=== PATIENT | male | born 1960 | race Caucasian/White ===

== ENCOUNTER 2017-06-08 13:14 | Outpatient (RCR) | payer MEDICARE, SELFPAY ==
[2017-06-08 13:48] LABS: International Normalized Ratio 2.5; Prothrombin Time (Protime)PT. 25.6 SECONDS (11.7-14.9)
== END 2017-06-08 14:00 | disposition home or self-care (01) ==
LOC: LAB 13:14
PROVIDERS: Family Provider Family Medicine; PCP Family Medicine; Visit Provider Internal Medicine Cardiovascular Disease
DX: I48.2 Chronic atrial fibrillation (principal)
CPT/HCPCS: 36415; 85610

== ENCOUNTER 2017-09-03 14:45 | Outpatient (RCR) | payer MEDICARE, SELFPAY ==
[2017-09-03 15:25] LABS: International Normalized Ratio 3.4; Prothrombin Time (Protime)PT. 34.9 SECONDS (11.7-14.9)
== END 2017-09-03 15:00 | disposition home or self-care (01) ==
LOC: LAB 14:45
PROVIDERS: Family Provider Family Medicine; PCP Family Medicine; Visit Provider Internal Medicine Cardiovascular Disease
DX: I48.91 Unspecified atrial fibrillation (principal); I51.3 Intracardiac thrombosis, not elsewhere classified; Z79.01 Long term (current) use of anticoagulants
CPT/HCPCS: 36415; 85610

== ENCOUNTER 2017-09-06 21:36 | Emergency (ER) | payer MEDICARE, SELFPAY ==
[2017-09-06 21:37] VITALS: BP 115/73; PULSE 80; RESP 18; TEMP 36.7; O2SAT 100; BMI 35.9
[2017-09-06] MEDS: Oxymetazoline 0.05% 1 SPRAY SPRAY.BTL NASAL (22:33)
[2017-09-06] MEDS: Lidocaine 4% 50 ML Bottle TOPICAL (22:33)
--- NOTE | 2017-09-06 23:04 | ED.VISSUMM ---
- ER Visit Summary Date of Service: 09/06/17 Chief Complaint: Epistaxis History of Present Illness: The patient is a 56 M who presents with epistaxis. It began about 11 hours ago and has been intermittent since that time. He does have a history of prior similar symptoms. He is on aspirin, Plavix, warfarin due to a significant coronary artery disease, peripheral vascular disease and congestive heart failure history. He denies any chest pain shortness of breath lightheadedness dizziness. Physical Examination: Afebrile vitals are stable Patient has some dried blood in the right nare and some dry irritated mucosa along the nasal septum no clear single source of bleeding Heart regular rate and rhythm Lungs are clear Abdomen soft Alert Test Results: INR is 3.3 Emergency Department Course and Treatment: Afrin was instilled in the right nare. A lidocaine soaked cotton ball was placed for some topical anesthesia. An anterior 5-1/2 cm Rhino Rocket type packing was placed. The patient had some reverse lacrimal flow with some blood at the right eye. The pressure in the balloon was decreased and the balloon was slightly pulled back and this resolved. Epistaxis appears controlled. The patient was referred to Dr. Duque for follow-up and discharged home. Treatment Plan: [] Disposition: Discharge Impression: Epistaxis This note was generated with [employer] dictation software. It may contain incorrect words, spelling, and punctuation that were not noted in review of the chart prior to signing ED Disposition - Plan for ED Patient: Chief Complaint: Nosebleed Referrals: Allen Motta MD [Primary Care Provider] -
--- NOTE | 2017-09-06 23:07 | ED.DEP ---
ED Disposition - Plan for ED Patient: Chief Complaint: Nosebleed Instructions: Nosebleed Referrals: Allen Motta MD [Primary Care Provider] - Brandon Blackwood MD [STAFF PHYSICIAN] -
[2017-09-06 23:11] VITALS: BP 120/84; PULSE 80; RESP 16; O2SAT 97
[2017-09-08 15:30] LABS: Prothrombin Time Fingerstick 37.9 SEC (11.9-14.4)
== END 2017-09-06 23:12 | disposition home or self-care (01) ==
LOC: ED 22:12
PROVIDERS: Emergency Provider Emergency Medicine; Family Provider Family Medicine; PCP Family Medicine
DX: R04.0 Epistaxis (principal); E78.00 Pure hypercholesterolemia, unspecified; I10 Essential (primary) hypertension; E11.9 Type 2 diabetes mellitus without complications; I25.10 Atherosclerotic heart disease of native coronary artery without angina pectoris; Z95.5 Presence of coronary angioplasty implant and graft; I73.9 Peripheral vascular disease, unspecified; Z79.01 Long term (current) use of anticoagulants; Z79.82 Long term (current) use of aspirin; Z95.810 Presence of automatic (implantable) cardiac defibrillator
CPT/HCPCS: 30901; 36416; 85610; 99282

== ENCOUNTER 2017-09-07 10:13 | Emergency (ER) | payer MEDICARE, SELFPAY ==
[2017-09-07 10:14] VITALS: BP 123/81; PULSE 80; RESP 18; TEMP 36.8; O2SAT 97; BMI 35.5
[2017-09-07 10:50] LABS: Bedside Glucose 400 mg/dL (70-110)
--- NOTE | 2017-09-07 10:50 | EKG12_ITS ---
Test Reason : Blood Pressure : / mmHG Vent. Rate : 080 BPM Atrial Rate : 089 BPM P-R Int : 000 ms QRS Dur : 176 ms QT Int : 490 ms P-R-T Axes : 000 251 071 degrees QTc Int : 565 ms Ventricular-paced rhythm Biventricular pacemaker detected Abnormal ECG Confirmed by INES BRAGA ([id number]), brands editor CHRISTIAN HUIZAR ([id number]) on 09/10/2017 2:44:49 PM Referred By: Keven Willingham Confirmed By:INES BRAGA
--- NOTE | 2017-09-07 10:51 | ED.VISSUMM ---
- ER Visit Summary Date of Service: 09/07/17 Chief Complaint: Nosebleed History of Present Illness: The patient is a 56 M presenting with nosebleed which started yesterday. Patient came to the ED and had a packing placed. He states he has had intermittent bleeding since leaving. He states he intermittently will spit out blood. No bleeding from the nose or packing. He states he has felt weak and tired today. He has been lightheaded with no syncope. He denies chest pain or shortness of breath. Physical Examination: Vitals are stable. Patient is afebrile. Alert no acute distress. HEENT exam nasal packing right nare, no blood in posterior pharynx Neck is supple. Lungs are clear and equal bilaterally. Heart is regular rate and rhythm. Abdomen is soft nontender nondistended. Extremities are unremarkable. Skin is warm and dry. No focal neurologic deficit. Remainder of exam is unremarkable. Emergency Department Course and Treatment: EKG is paced at a rate of 80. Chest x-ray shows no acute process. CBC normal except for platelets 138. Chemistry normal except for sodium 135, glucose 348, BUN 38, creatinine 1.47. INR is 2.4. Troponin is negative. Patient given IV fluids, insulin. Repeat BGT 303. Orthostatics are negative. Patient was observed in the ED for several hours. He had no significant bleeding on multiple re-evaluations. He had a small amount of blood in his posterior pharynx on one re-evaluation. On reevaluation this has resolved. Patient is feeling improved. He states his dizziness has resolved. Discussed with Dr. Shoemaker and he will follow-up in the office. Patient is advised return to ED for any worsening complaints. Disposition: Discharge home Impression: Epistaxis, resolved; hyperglycemia This note was generated with [employer] dictation software. It may contain incorrect words, spelling, and punctuation that were not noted in review of the chart prior to signing ED Disposition - Plan for ED Patient: Chief Complaint: Nosebleed Referrals: Allen Motta MD [Primary Care Provider] -
--- NOTE | 2017-09-07 10:53 | RAD_ITS ---
STUDY: X-RAY CHEST REASON FOR EXAM: Male, 56 years old. Shortness of breath and dyspnea. TECHNIQUE: Single AP portable view of the chest. COMPARISON: Comparison is made with prior study dated September 07, 2016. FINDINGS: EKG electrodes are seen. The lungs are clear and expanded. There is no demonstrated pleural abnormality. Normal size heart. A left-sided dual-chamber pacemaker is seen. Normal mediastinum and katrina. Normal visualized pulmonary arteries. There is atherosclerotic calcification of the aortic arch with tortuosity. Normal visualized thoracic spine. Normal visualized ribs, clavicles, and shoulders. There is no demonstrated abnormality of the visualized soft tissue structures of the upper abdomen. RAD/Chest 1 View (Portable) IMPRESSION: No acute abnormality is present. Electronically Signed: Mann Prater MD at 11:24 EDT Tel [phone], Service support ,
[2017-09-07 11:05] LABS: Absolute Lymphocyte Count 1.19 X10^3/ul (0.83-4.51); Absolute Neutrophil Count 7.5 X10^3/uL (2.0-7.7); Basophil# 0.01 X10^3/uL; Basophil% 0.1 % (0-1); Eosinophil# 0.07 X10^3/uL; Eosinophils% 0.8 % (0-5); Hematocrit 48.1 % (40-54); Hemoglobin 16.3 g/dl (13.0-16.5); Lymphocyte # 1.19 X10^3/ul (4.0); Lymphocyte % 12.9 % (19-41); Mean Corp Hgb Conc 33.9 g/gl (32-36); Mean Corpuscular Hgb 28.7 pg (27.0-32.0); Mean Corpuscular Volume 84.7 fL (80-94); Mean Platelet Vol. 10.5 fl (6.2-12.0); Monocyte# 0.47 X10^3/uL; Monocyte% 5.1 % (0-10); Neutrophil # 7.47 X10^3/uL (2.7-7.7); Neutrophil % 80.6 % (47-70); POSITIVE COUNT NO; POSITIVE DIFFERENTIAL NO; POSITIVE MORPHOLOGY NO; Platelet Count 138 K/mm3 (150-450); Red Blood Count 5.68 M/mm3 (4.6-6.2); White Blood Count 9.3 K/mm3 (4.4-11.0)
[2017-09-07 11:17] LABS: Anion Gap 10 (5-15); BUN 38 mg/dL (7-18); BUN/Creat Ratio 25.9 RATIO (10-20); Calcium,Total 8.9 mg/dL (8.5-10.1); Chloride 100 mmol/L (98-107); Creatinine, Serum 1.47 mg/dL (0.70-1.30); EST Glomerular Filtration Rate 53 mL/min (>60); Est Glom Filt Rate - Afr Amer 64 mL/min (>60); Glucose 348 mg/dL (74-106); Potassium 5.1 mmol/L (3.5-5.1); Sodium Level 135 mmol/L (136-145)
[2017-09-07 11:20] LABS: International Normalized Ratio 2.4; Prothrombin Time (Protime)PT. 26.2 SECONDS (11.7-14.9)
[2017-09-07 12:15] VITALS: BP 117/80; PULSE 70; RESP 14; O2SAT 97
[2017-09-07 12:23] VITALS: BP 116/75; BP 120/74; BP 121/78; PULSE 78; PULSE 80; PULSE 82
--- NOTE | 2017-09-07 12:36 | ED.RN ---
PATIENT HAD BM X'S 1, TOBY LEÓN NOTED, DR. ARANDA MADE AWARE.
[2017-09-07 13:16] LABS: Bedside Glucose 303 mg/dL (70-110)
[2017-09-07 14:41] VITALS: BP 126/78; PULSE 80; RESP 14; O2SAT 99
--- NOTE | 2017-09-07 14:52 | ED.DEP ---
ED Disposition - Plan for ED Patient: Chief Complaint: Nosebleed Instructions: Nosebleed Referrals: Allen Motta MD [Primary Care Provider] - Mark Shoemaker MD [STAFF PHYSICIAN] -
[2017-09-07 15:05] VITALS: RESP 14
== END 2017-09-07 15:06 | disposition home or self-care (01) ==
PROVIDERS: Emergency Provider Emergency Medicine; Family Provider Family Medicine; PCP Family Medicine
DX: R04.0 Epistaxis (principal); E11.65 Type 2 diabetes mellitus with hyperglycemia; I10 Essential (primary) hypertension; I25.10 Atherosclerotic heart disease of native coronary artery without angina pectoris; I25.2 Old myocardial infarction; Z86.73 Personal history of transient ischemic attack (TIA), and cerebral infarction without residual deficits; Z95.1 Presence of aortocoronary bypass graft; Z95.0 Presence of cardiac pacemaker; Z79.4 Long term (current) use of insulin
CPT/HCPCS: 71045; 80048; 82962; 84484; 85025; 85610; 93005; 99285; J7030; J7040

== ENCOUNTER 2017-12-10 11:49 | Outpatient (RCR) | payer MEDICARE, SELFPAY ==
[2017-12-10 12:55] LABS: International Normalized Ratio 2.7; Prothrombin Time (Protime)PT. 28.4 SECONDS (11.7-14.9)
== END 2017-12-10 13:00 | disposition home or self-care (01) ==
LOC: LAB 11:49
PROVIDERS: Family Provider Family Medicine; PCP Family Medicine; Visit Provider Internal Medicine Cardiovascular Disease
DX: I48.91 Unspecified atrial fibrillation (principal); I51.3 Intracardiac thrombosis, not elsewhere classified; Z79.01 Long term (current) use of anticoagulants
CPT/HCPCS: 36415; 85610

== ENCOUNTER 2018-05-12 12:40 | Emergency (ER) | payer MEDICARE, SELFPAY ==
[2018-05-12] VITALS (8 sets, daily range): BP systolic 91–101; BP diastolic 53–74; PULSE 64–82; RESP 15–22; TEMP 36.8–37.4; O2SAT 94–97; BMI 35.4
--- NOTE | 2018-05-12 13:06 | EKG12_ITS ---
Test Reason : SOB Blood Pressure : / mmHG Vent. Rate : 080 BPM Atrial Rate : 108 BPM P-R Int : 000 ms QRS Dur : 176 ms QT Int : 472 ms P-R-T Axes : 000 213 062 degrees QTc Int : 544 ms Ventricular-paced rhythm Biventricular pacemaker detected Abnormal ECG Confirmed by JESI SMITH, DANYEL ([id number]), editor at large CHRISTIAN HUIZAR ([id number]) on 05/14/2018 1:52:47 PM Referred By: KAMI Confirmed By:DANYEL DENNISON MD
--- NOTE | 2018-05-12 13:09 | ED.VISSUMM ---
- ER Visit Summary Date of Service: 05/12/18 Chief Complaint: Cough History of Present Illness: The patient is a 57 M with a cough that has been gradually getting worse over the past week and a half. He has occasional sputum. He has occasional chest pain after coughing. He gets short of breath with exertion and with coughing. He feels lightheaded like he might pass out. He does have a history of heart disease and atrial fibrillation. Also reports diabetes, hypertension, and hyperlipidemia. He has a history of defibrillator and cardiac stents. He takes aspirin, Plavix, and Coumadin among his other medications. He was seen at an outside clinic and had an x-ray that showed possible early pulmonary edema versus reactive airway disease versus pneumonitis. The patient also reported that he had a pulse ox of 80% at home, but it was 99% today at the clinic. Physical Examination: Blood pressure 91/59. Otherwise vitals unremarkable. Afebrile. Patient has a dry cough. Lungs are clear in all mancuso. Heart is regular. Abdomen soft and nontender. He has lower extremity edema with stasis changes. Neurovascularly intact. Alert and oriented. Speaking in full sentences. Test Results: EKG and labs pending. Emergency Department Course and Treatment: Patient treated with a DuoNeb while awaiting results. Patient feels better after his breathing treatment. CBC normal except his platelets were 139. Glucose 284, BUN 27, creatinine 1.53, stable roughly. INR 3.0. Troponin normal. BNP 190. Repeat temperature was 99.3. Heart rate 81, respiratory rate 16, blood pressure 98/73 and 96% on room air. Patient says he normally has a low blood pressure. His maximum blood pressure will be 107 systolic. He feels much better. He ambulated in the department. He did well and did not desaturate. He would like to go home. His outside chest x-ray showed possible early pulmonary edema versus reactive airway disease versus pneumonitis. The remainder of his workup and symptoms are all nonspecific. He is concerned he has an infection and would like to try antibiotics. I believe this is reasonable. I advised him that it can raise his INR, and he will take a half dose of his Coumadin and get his INR rechecked. Patient treated with a Z-lion. Follow-up with primary care. Treatment Plan: As above Disposition: Discharge Impression: 1. Acute bronchitis This note was generated with [employer] dictation software. It may contain incorrect words, spelling, and punctuation that were not noted in review of the chart prior to signing ED Disposition - Plan for ED Patient: Chief Complaint: Shortness of Breath Instructions: Acute Bronchitis Prescriptions: Azithromycin [Zithromax Z-Lion] 250 mg PO UD #1 box Referrals: Allen Motta MD [Primary Care Provider] -
[2018-05-12] MEDS: Ipratropium/Albuterol Sulfate 3 ML AMPUL.NEB INHALATION (13:17)
[2018-05-12 13:32] LABS: Absolute Lymphocyte Count 0.71 X10^3/ul (0.83-4.51); Absolute Neutrophil Count 4.7 X10^3/uL (2.0-7.7); Basophil# 0.01 X10^3/uL; Basophil% 0.2 % (0-1); Eosinophil# 0.09 X10^3/uL; Eosinophils% 1.5 % (0-5); Hematocrit 43.9 % (40-54); Hemoglobin 14.6 g/dl (13.0-16.5); Lymphocyte # 0.71 X10^3/ul (4.0); Lymphocyte % 11.5 % (19-41); Mean Corp Hgb Conc 33.3 g/gl (32-36); Mean Corpuscular Hgb 28.9 pg (27.0-32.0); Mean Corpuscular Volume 86.9 fL (80-94); Mean Platelet Vol. 10.1 fl (6.2-12.0); Monocyte# 0.61 X10^3/uL; Monocyte% 9.9 % (0-10); Neutrophil # 4.74 X10^3/uL (2.7-7.7); Neutrophil % 76.9 % (47-70); POSITIVE COUNT NO; POSITIVE DIFFERENTIAL NO; POSITIVE MORPHOLOGY NO; Platelet Count 139 K/mm3 (150-450); RBC Distribution Width CV 13.7 % (11.6-14.6); RBC Distribution Width SD 42.9 fl (35.1-43.9); Red Blood Count 5.05 M/mm3 (4.6-6.2); White Blood Count 6.2 K/mm3 (4.4-11.0)
[2018-05-12 13:46] LABS: Prothrombin Time (Protime)PT. 31.4 SECONDS (11.7-14.9)
[2018-05-12 13:49] LABS: Anion Gap 8 (5-15); BUN 27 mg/dL (7-18); BUN/Creat Ratio 17.6 RATIO (10-20); Calcium,Total 8.7 mg/dL (8.5-10.1); Chloride 99 mmol/L (98-107); Creatinine, Serum 1.53 mg/dL (0.70-1.30); EST Glomerular Filtration Rate 50 mL/min (>60); Est Glom Filt Rate - Afr Amer 61 mL/min (>60); Estimated Creatinine Clearance 45.68 ml/min; Glucose 284 mg/dL (74-106); Potassium 4.2 mmol/L (3.5-5.1); Sodium Level 135 mmol/L (136-145)
[2018-05-12 13:59] LABS: BNP,B-Type NATRIURETIC PEPTIDE 190.4 pg/mL (0-100)
--- NOTE | 2018-05-12 15:00 | ED.DEP ---
ED Disposition - Plan for ED Patient: Chief Complaint: Shortness of Breath Instructions: Acute Bronchitis Prescriptions: Azithromycin [Zithromax Z-Lion] 250 mg PO UD #1 box Referrals: Allen Motta MD [Primary Care Provider] -
== END 2018-05-12 15:14 | disposition home or self-care (01) ==
LOC: ED 13:53
PROVIDERS: Emergency Provider Emergency Medicine; Family Provider Family Medicine; PCP Family Medicine
DX: J20.9 Acute bronchitis, unspecified (principal); K21.9 Gastro-esophageal reflux disease without esophagitis; G47.33 Obstructive sleep apnea (adult) (pediatric); I25.10 Atherosclerotic heart disease of native coronary artery without angina pectoris; E11.9 Type 2 diabetes mellitus without complications; I10 Essential (primary) hypertension; I48.91 Unspecified atrial fibrillation; E78.00 Pure hypercholesterolemia, unspecified; Z86.73 Personal history of transient ischemic attack (TIA), and cerebral infarction without residual deficits; Z79.01 Long term (current) use of anticoagulants; R60.0 Localized edema; R06.02 Shortness of breath; Z95.5 Presence of coronary angioplasty implant and graft; Z95.810 Presence of automatic (implantable) cardiac defibrillator; Z79.02 Long term (current) use of antithrombotics/antiplatelets; Z79.82 Long term (current) use of aspirin
CPT/HCPCS: 80048; 83880; 84484; 85025; 85610; 93005; 94640; 99284; J7030; A4216

== ENCOUNTER 2018-05-16 18:26 | Inpatient (IN) | payer MEDICARE, SELFPAY ==
[2018-05-12 12:41] VITALS: BMI 35.4
[2018-05-16] VITALS (10 sets, daily range): BP systolic 99–140; BP diastolic 75–101; PULSE 80; RESP 12–32; TEMP 36.3–37.2; O2SAT 99–100; BMI 36.1
[2018-05-16 18:59] LABS: Absolute Lymphocyte Count 1.03 X10^3/ul (0.83-4.51); Absolute Neutrophil Count 5.2 X10^3/uL (2.0-7.7); Basophil# 0.02 X10^3/uL; Basophil% 0.3 % (0-1); Eosinophil# 0.21 X10^3/uL; Eosinophils% 2.9 % (0-5); Hematocrit 43.4 % (40-54); Hemoglobin 15.4 g/dl (13.0-16.5); Lymphocyte # 1.03 X10^3/ul (4.0); Lymphocyte % 14.4 % (19-41); Mean Corp Hgb Conc 35.5 g/gl (32-36); Mean Corpuscular Hgb 31.6 pg (27.0-32.0); Mean Corpuscular Volume 88.9 fL (80-94); Mean Platelet Vol. 10.1 fl (6.2-12.0); Monocyte# 0.68 X10^3/uL; Monocyte% 9.5 % (0-10); Neutrophil # 5.18 X10^3/uL (2.7-7.7); Neutrophil % 72.8 % (47-70); POSITIVE COUNT NO; POSITIVE DIFFERENTIAL NO; POSITIVE MORPHOLOGY NO; Platelet Count 177 K/mm3 (150-450); RBC Distribution Width CV 13.5 % (11.6-14.6); RBC Distribution Width SD 42.3 fl (35.1-43.9); Red Blood Count 4.88 M/mm3 (4.6-6.2); White Blood Count 7.1 K/mm3 (4.4-11.0)
[2018-05-16] MEDS: Ipratropium/Albuterol Sulfate 3 ML AMPUL.NEB INHALATION (18:59)
[2018-05-16] MEDS: Albuterol 2.5 MG/3 ML VIAL.NEB. INHALATION (18:59)
[2018-05-16 19:15] LABS: Anion Gap 8 (5-15); BUN 29 mg/dL (7-18); BUN/Creat Ratio 17.6 RATIO (10-20); Calcium,Total 8.8 mg/dL (8.5-10.1); Chloride 96 mmol/L (98-107); Creatinine, Serum 1.65 mg/dL (0.70-1.30); EST Glomerular Filtration Rate 46 mL/min (>60); Est Glom Filt Rate - Afr Amer 56 mL/min (>60); Estimated Creatinine Clearance 42.36 ml/min; Glucose 310 mg/dL (74-106); Potassium 4.2 mmol/L (3.5-5.1); Sodium Level 131 mmol/L (136-145)
--- NOTE | 2018-05-16 19:20 | RAD_ITS ---
STUDY: X-RAY CHEST REASON FOR EXAM: Male, 57 years old. Chest pain and shortness of breath TECHNIQUE: Single frontal view of the chest. COMPARISON: September 07, 2017 FINDINGS: 3-lead AICD right chest unchanged in position. Possible developing right lower lobe infiltrate. There is no demonstrated pleural abnormality. Normal size heart. Normal mediastinum and katrina. Normal visualized pulmonary arteries. Normal visualized aortic arch and descending thoracic aorta. Normal visualized thoracic spine. Normal visualized ribs, clavicles, and shoulders. There is no demonstrated abnormality of the visualized soft tissue structures of the upper abdomen. RAD/Chest 1 View (Portable) IMPRESSION: Possible developing right lower lobe infiltrate Electronically Signed: Juan C Chapin MD at 20:49 EST , Service support ,
[2018-05-16 19:26] LABS: BNP,B-Type NATRIURETIC PEPTIDE 136.4 pg/mL (0-100)
[2018-05-17] VITALS (17 sets, daily range): BP systolic 89–112; BP diastolic 51–79; PULSE 78–86; RESP 16–18; TEMP 36.1–36.9; O2SAT 94–98; BMI 34.3; BMI 34.4
--- NOTE | 2018-05-17 00:06 | ED.VISSUMM ---
- ER Visit Summary Date of Service: 05/17/18 Chief Complaint: Shortness of breath. History of Present Illness: The patient is a 57 M history of insulin-dependent diabetes, TIA, CAD and PA, hypertension and A. fib. Denies any history of COPD not on home O2. Patient recently was seen in the ER treated as outpatient for bronchitis with Z-Lion. Patient states he does not feel he is getting better he feels more short of breath. And he says his cough is not gotten any better. Productive of yellowish to brown phlegm. No hemoptysis. No chest pain. No fever. Physical Examination: Middle-aged male initially on BiPAP by squad. Blood pressure 140/101. Pulse ox is 100% BiPAP. Off the O2 is hypoxic. HEENT exam unremarkable moist his membranes. Neck nontender no lymphadenopathy. Lungs coarse breath sounds. Expiratory wheezing. No rales. No rhonchi. Heart rhythm no murmur. Abdomen soft nontender. Normal bowel sounds no peritoneal signs. Extremities his chronic edema in the lower extremities is equal symmetrical. Calves are nontender. Neurologically is awake alert with no focal motor deficits. Test Results: CBC normal white count 7. Hemoglobin 15. Electrolytes sodium 131. BUN and creatinine 21 and 1.65. Glucose of 310. Gap of 8. Troponin normal. BNP of 136. EKG is paced rhythm at 88. Chest x-ray chronic changes cannot rule out a right lower lobe infiltrate. Emergency Department Course and Treatment: Patient treated with aerosol treatments. Initially we took him off the BiPAP but squad had a mom. He became hypoxic. He was put on BiPAP again. After aerosol treatments he is doing better. And he is currently stable on just oxygen. With a sat in the mid 90s. Without oxygen no he becomes hypoxic. Treatment Plan: Patient be started on IV Levaquin for community-acquired right lower lobe pneumonia. Due to his hypoxia I think he needs admitted. I have already spoken to the hospitalist and she will admit him to medical floor. Patient is comfortable with that plan. Disposition: Admission Impression: Acute right lower lobe pneumonia Bronchospasm with wheezing Hypoxia Pacemaker History of insulin-dependent diabetes This note was generated with [employer] dictation software. It may contain incorrect words, spelling, and punctuation that were not noted in review of the chart prior to signing ED Disposition - Plan for ED Patient: Chief Complaint: Shortness of Breath Referrals: Allen Motta MD [Primary Care Provider] -
[2018-05-17 00:18] LABS: Prothrombin Time (Protime)PT. 38.4 SECONDS (11.7-14.9)
[2018-05-17] MEDS: MethylPREDNISolone 125 MG/2 ML Vial IV (00:19)
[2018-05-17] MEDS: levoFLOXacin IV 750 MG/150 ML BAG 100 MG IV (00:19)
--- NOTE | 2018-05-17 00:21 | HP.PCM_ITS ---
History of Present Illness Date of Admission: 05/17/18 Chief Complaint: shortness of breath, productive cough The patient is a 57 year old M with an extensive past medical history as listed below. He was admitted through the ED on 05/17/2018 with a complaint of worsening shortness of breath and a productive cough for the past 3 days. He was recently seen in the ED for similar symptoms and treated with a Z-Lion for bronchitis. However symptoms worsen he still had worsening shortness of breath with a cough productive of greenish sputum. Cough actually worsened and today he said he simply felt like he could not breathe anymore. He did not have any fever or chills and had pleuritic chest pain with coughing but no hemoptysis. He called the EMS and had to be put on BiPAP on account of hypoxia. CBC showed white cell count of 7 and BMP was significant for sodium of 131 as well as creatinine of 2.1. EKG showed paced rhythm with rate at 88 and chest x-ray showed chronic changes and possible right lower lobe infiltrate. In the ED, they try to wean him off the BiPAP but he became more hypoxic and had to be put on BiPAP again. He was eventually transitioned to oxygen with saturation in the mid 90s but could not tolerate being off of oxygen. He is been admitted to be managed for respiratory insufficiency due to community-acquired pneumonia. He was started on IV Levaquin. [] Past Medical History Past Medical History (Chronic Problems): Chronic Problems (Last Reviewed 02/04/18 @ 16:06 by Keven Willingham MD) Mural thrombus of cardiac apex (Chronic) [facility] 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 (Chronic) ICD (implantable cardioverter-defibrillator), biventricular, in situ (Chronic) Atherosclerosis of [place] coronary artery of [place] heart without angina pectoris (Chronic) PCI to LAD & diagonal in 2009; Diabetes mellitus (Chronic) Obesity (Chronic) Hypertension (Chronic) Benign prostatic hypertrophy (Chronic) COPD (chronic obstructive pulmonary disease) (Chronic) GERD (gastroesophageal reflux disease) (Chronic) [place] (obstructive sleep apnea) (Chronic) AICD (automatic cardioverter/defibrillator) present (Chronic) 12/2009 implant; PAD (peripheral artery disease) (Chronic) Pleural effusion, left (Chronic) S/P PTCA (percutaneous transluminal coronary angioplasty) (Chronic) HLD (hyperlipidemia) (Chronic) Ischemic cardiomyopathy (Chronic) Systolic CHF, chronic (Chronic) Atrial fibrillation (Chronic) AV Node RFA 07/11/2015 H/O atrioventricular chris ablation (Chronic ~07/11/15) Medical History: Medical History (Last Reviewed 02/04/18 @ 16:06 by Keven Willingham MD) Mural thrombus of cardiac apex (Chronic) I51.3 [facility] 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 (Chronic) Z79.01 ICD (implantable cardioverter-defibrillator), biventricular, in situ (Chronic) Z95.810 Atherosclerosis of [place] coronary artery of [place] heart without angina pectoris (Chronic) I25.10 PCI to LAD & diagonal in 2009; Diabetes mellitus (Chronic) E11.9 Obesity (Chronic) E66.9 Hypertension (Chronic) I10 Benign prostatic hypertrophy (Chronic) N40.0 COPD (chronic obstructive pulmonary disease) (Chronic) J44.9 GERD (gastroesophageal reflux disease) (Chronic) K21.9 [place] (obstructive sleep apnea) (Chronic) G47.33 PAD (peripheral artery disease) (Chronic) I73.9 Pleural effusion, left (Chronic) J90 HLD (hyperlipidemia) (Chronic) E78.5 Ischemic cardiomyopathy (Chronic) I25.5 Hypokalemia (Acute) E87.6 Hypotension (Acute) I95.9 Acute on chronic renal failure (Acute) N17.9, N18.9 Near syncope (Acute) Systolic CHF, chronic (Chronic) I50.22 Atrial fibrillation (Chronic) I48.91 AV Node RFA 07/11/2015 Light headedness (Acute) R42 Chest pain (Acute) R07.9 Atherosclerosis of [place] coronary artery of [place] heart without angina pectoris I25.10 03/25/2007 EVAN to prox LAD and PTCA to Diag 1; 07/19/2008 PTCA/EVAN to ostium of LAD; 07/31/2008 PTCA to ostial LAD and Diagonal 1; 05/2009 PTCA/EVAN to mid LAD and Diagonal 1 LV apical aneurysm with thrombus History of cardiac pacemaker Onset Date: ~07/11/15 Z95.0 Allergies tramadol Allergy (Verified 09/06/17 21:37) Hives Penicillins Adverse Reaction (Verified 09/06/17 21:37) Nausea Home Medications: Ambulatory Orders Medication Instructions Recorded Insulin Glargine,Hum.rec.anlog 70 unit SQ QHS 08/16/16 [Nilsa Dang] gabapentin 300 mg capsule 300 mg PO TID cap 06/05/17 insulin aspart U- 100 100 unit/mL 16 unit SC TIDCM ml 06/08/17 subcutaneous pen furosemide 80 mg tablet 80 mg PO BID #60 tab 08/11/17 potassium chloride ER 20 mEq 20 meq PO DAILY #30 tab 09/02/17 tablet,extended release(part/cryst) Atorvastatin Calcium [Lipitor] 40 mg PO QHS 09/07/17 Carvedilol [Coreg] 3.125 mg PO BID 09/07/17 Aspirin [Aspirin EC] 81 mg PO DAILY 05/12/18 Lisinopril [Zestril] 2.5 mg PO DAILY 05/12/18 Spironolactone 25 mg PO DAILY 05/12/18 Warfarin Sodium 2.5 mg PO SUSA 05/12/18 clopidogrel 75 mg tablet 75 mg PO DAILY #30 tab 05/13/18 famotidine 40 mg tablet 40 mg PO DAILY #30 tab 05/13/18 warfarin 5 mg tablet 5 mg PO MOTUWETHFR #30 tab 05/13/18 Surgical History: Surgical History (Last Reviewed 02/04/18 @ 16:06 by Keven Willingham MD) AICD (automatic cardioverter/defibrillator) present (Chronic) Z95.810 12/2009 implant; S/P PTCA (percutaneous transluminal coronary angioplasty) (Chronic) Z98.61 H/O atrioventricular chris ablation (Chronic) Onset Date: ~07/11/15 Z98.890 History of cholecystectomy Z98.890, Z90.49 S/P aorto-bifemoral bypass surgery Onset Date: ~2003 Z95.828 [facility] Surgical History: angioplasty, cholecystectomy, pacemaker implantation, - Psychiatric History: No pertinent psych hx Lives: Alone Smoking Status: Current every day smoker Alcohol: None Drugs: None - *Family History Paternal Family History: Family History (Last Reviewed 02/04/18 @ 16:06 by Keven Willingham MD) Father Hypertension CAD (coronary artery disease) Sister Cancer History Items: Heart Disease - CAD; at approximately 45 years of age Maternal Family History: Family History (Last Reviewed 02/04/18 @ 16:06 by Keven Willingham MD) Father Hypertension CAD (coronary artery disease) Sister Cancer History Items: No pertinent history Review of Systems Constitutional: Reports: Chills, Fever, Malaise, Weakness, Fatigue. Denies: Ano rexia Eyes: Denies: Blurred vision HEENT: Denies: Head Aches, Sinus Congestion, Sinus Drainage Cardiovascular: Denies: Chest Pain, Chest Pressure, Chest Tightness, Edema, Heaviness, Light Headedness, Orthopnea, Palpitations Respiratory: Reports: Cough, Pleuritic Pain, Shortness of Breath, Shortness of breath at rest, Shortness of breath upon exertion, Sputum production, Wheezing Gastrointestinal: Denies: Abdominal Pain, Nausea, Vomiting Genitourinary: Denies: Dysuria Musculoskeletal: Denies: Joint Pain, Joint Tenderness Skin: Denies: Rash, Wounds Neurological: Denies: Numbness, Tingling, Focal weakness Psychiatric: Denies: Anxiety, Depression, Homicidal Ideations, Suicidal Ideations Hematologic/ Lymphatic: Denies: Easy Bruising, Easy Bleeding VTE Information - Inpt Only VTE Present on Admission: No VTE Pharm Prophylaxis ordered?: Yes - Physical Exam General: Alert, Oriented x3, Cooperative, - - in moderate respiratory distress HEENT: Atraumatic, PERRLA, EOMI, Normocephalic Oral: Dry Mucosa Neck: Supple, No JVD, Negative Carotid Bruits Lungs: - - lungs sound very tight, with wheezing and crackles. Breath sounds diminished in all lung mancuso posteriorly Cardiovascular: Regular rate, Regular Rhythm, Normal S1, Normal S2, No murmurs, - - pacemaker in place Abdomen: Bowel Sounds Present, Soft, Non Tender, Non-Distended, No Hepato- splenomegaly Extremities: No clubbing, No cyanosis, No edema, Capillary Refill Less than 3 Seconds Skin: No rashes, No breakdown Musculoskeletal: No Tenderness to Palpation of Joints or Extremities Lymphatic: No Cervical, Supraclavicular, or Inguinal Adenopathy Neurological: Cranial nerves II-XII grossly intact, Neuro grossly intact, Motor Exam 5/5 strength throughout Psych/Mental Status: Normal Affect, Appropriate, Alert and oriented to time, place, person, mood and affect Vital Signs Temp Pulse Resp BP Pulse Ox 98.9 F 80 17 116/82 H 100 05/16/18 23:00 05/16/18 23:00 05/16/18 23:00 05/16/18 23:00 05/16/18 23:00 Oxygen Flow Rate (L/min) 3 Oxygen Delivery Method Nasal Cannula Weight: 210 lb 8.663 oz Body Mass Index (BMI) 36.1 Finger Stick Blood Glucose 303 Laboratory Tests Past 24 Hrs 05/16/18 05/16/18 05/16/18 18:45 18:45 18:45 WBC 7.1 RBC 4.88 Hgb 15.4 Hct 43.4 MCV 88.9 MCH 31.6 MCHC 35.5 RDW 13.5 RDW Differential 42.3 Plt Count 177 MPV 10.1 Immature Gran % (Auto) 0.100 Neut % (Auto) 72.8 H Lymph % (Auto) 14.4 L [place] % (Auto) 9.5 Eos % (Auto) 2.9 Baso % (Auto) 0.3 Absolute Neuts (auto) 5.2 Absolute Lymphs (auto) 1.03 Total Counted Not Reportable PT INR Sodium 131 L Potassium 4.2 Chloride 96 L Carbon Dioxide 27.0 Anion Gap 8 BUN 29 H Creatinine 1.65 H Estim Creat Clear Calc 42.36 Est GFR (MDRD) Af Amer 56 L Est GFR (MDRD) Non-Af 46 L BUN/Creatinine Ratio 17.6 Glucose 310 H Calcium 8.8 Troponin I < 0.015 B-Natriuretic Peptide 136.4 H 05/16/18 18:45 WBC RBC Hgb Hct MCV MCH MCHC RDW RDW Differential Plt Count MPV Immature Gran % (Auto) Neut % (Auto) Lymph % (Auto) [place] % (Auto) Eos % (Auto) Baso % (Auto) Absolute Neuts (auto) Absolute Lymphs (auto) Total Counted PT Pending INR Pending Sodium Potassium Chloride Carbon Dioxide Anion Gap BUN Creatinine Estim Creat Clear Calc Est GFR (MDRD) Af Amer Est GFR (MDRD) Non-Af BUN/Creatinine Ratio Glucose Calcium Troponin I B-Natriuretic Peptide Diagnostic Data Chest X-Ray 05/16/18 19:20 IMPRESSION: Possible developing right lower lobe infiltrate Electronically Signed: Juan C Chapin MD at 20:49 EST , Service support , Assessment/Plan All Active Problems (Last Reviewed 02/04/18 @ 16:06 by Keven Willingham MD) Hypokalemia (Acute) Hypotension (Acute) Acute on chronic renal failure (Acute) Near syncope (Acute) Light headedness (Acute) Chest pain (Acute) Pneumonia (Resolved) 57 y/o admitted with a complaint of worsening SOB and productive after failing outpatient therapy with azithromycin for bronchitis 1. Acute respiratory insufficiency due to bronchitis vs community acquired pneumonia * cough productive of yellowish-greenish sputum * lungs sound very tight, with wheezing and crackles. * CXR showed possible developing right lower lobe infiltrate * on 4L of oxygen and maintaining saturation ~ 98% * admit to PCU with telemetry * IV solumedrol 40mg q8 * IV levaquin 750mg daily * breathing treatments with solumedrol * 2. Bronchitis and possible community acquired pneumonia * management as under 1. * 3. Hyponatremia: * Na is 131. likely due to a hypotonic, hypovolemic hyponatremia. * patient appears clinically dry * hydrate with IVF and monitor * 4. CKD 3: Cr is 1.65. baseline Cr is ~ 1.5 from earlier this year. Will monitor 5. Hypertension: on Coreg and lisinopril. 6. CAD: on aspirin, carvedilol, statin 7. Arrhythmia s/p pacemaker: stable 8. diabetes mellitus: on lantus 70Iu qhs and lispro 16Iu tidwm. ISS. Accuchecks ACHS 9. Afib: on carvedilol. Also on on coumadin. INR is 3.9. will hold coumadin until INR is in therapeutic range 10. Supratherapeutic INR: Inr is 3.9. Hold coumadin and monitor DVT prophylaxis: on coumadin. GI prophylaxis: famotidine * Code Visit OBSV E&M: [id number] Initial observation care L3
[2018-05-17 00:28] LABS: International Normalized Ratio 3.9
[2018-05-17] MEDS: Furosemide 80 MG Tablet PO ×2 (01:57→22:12)
[2018-05-17] MEDS: Gabapentin 300 MG Capsule PO ×4 (01:57→22:15)
[2018-05-17] MEDS: 0.9% Normal Saline 1,000 ML 75 ML IV (01:59)
[2018-05-17 02:11] LABS: Bedside Glucose 216 mg/dL (70-110)
[2018-05-17] MEDS: guaiFENesin 10 ML UDC (200MG/10ML) 15 ML PO ×2 (02:48→16:12)
[2018-05-17 06:36] LABS: Bedside Glucose 291 mg/dL (70-110)
[2018-05-17 06:44] LABS: Anion Gap 10 (5-15); BUN 28 mg/dL (7-18); Calcium,Total 8.6 mg/dL (8.5-10.1); Chloride 97 mmol/L (98-107); Creatinine, Serum 1.47 mg/dL (0.70-1.30); EST Glomerular Filtration Rate 53 mL/min (>60); Est Glom Filt Rate - Afr Amer 64 mL/min (>60); Estimated Creatinine Clearance 47.54 ml/min; Glucose 257 mg/dL (74-106); Potassium 4.5 mmol/L (3.5-5.1); Sodium Level 131 mmol/L (136-145)
[2018-05-17 06:48] LABS: Absolute Lymphocyte Count 0.42 X10^3/ul (0.83-4.51); Absolute Neutrophil Count 6.4 X10^3/uL (2.0-7.7); Basophil# 0.02 X10^3/uL; Basophil% 0.3 % (0-1); Eosinophil# 0.03 X10^3/uL; Eosinophils% 0.4 % (0-5); Hematocrit 43.4 % (40-54); Hemoglobin 15.8 g/dl (13.0-16.5); Lymphocyte # 0.42 X10^3/ul (4.0); Lymphocyte % 6.1 % (19-41); Mean Corp Hgb Conc 36.4 g/gl (32-36); Mean Corpuscular Hgb 32.2 pg (27.0-32.0); Mean Corpuscular Volume 88.6 fL (80-94); Mean Platelet Vol. 10.5 fl (6.2-12.0); Monocyte# 0.06 X10^3/uL; Monocyte% 0.9 % (0-10); Neutrophil # 6.41 X10^3/uL (2.7-7.7); Neutrophil % 92.3 % (47-70); Platelet Count 181 K/mm3 (150-450); RBC Distribution Width CV 13.7 % (11.6-14.6); RBC Distribution Width SD 41.1 fl (35.1-43.9); White Blood Count 6.9 K/mm3 (4.4-11.0)
[2018-05-17 06:52] LABS: Differential Indicated SCAN CRITERIA MET; POSITIVE COUNT NO; POSITIVE DIFFERENTIAL YES; POSITIVE MORPHOLOGY NO
[2018-05-17] MEDS: Ipratropium/Albuterol Sulfate 3 ML AMPUL.NEB INHALATION ×3 (07:16→19:58)
[2018-05-17 07:33] LABS: Prothrombin Time (Protime)PT. 41.4 SECONDS (11.7-14.9)
[2018-05-17 07:36] LABS: International Normalized Ratio 4.3
[2018-05-17 07:48] LABS: Albumin, Serum 3.5 g/dL (3.2-5.0); BUN 26 mg/dL (7-18); BUN/Creat Ratio 18.1 RATIO (10-20); Calcium,Total 8.7 mg/dL (8.5-10.1); Chloride 97 mmol/L (98-107); Creatinine, Serum 1.44 mg/dL (0.70-1.30); EST Glomerular Filtration Rate 54 mL/min (>60); Est Glom Filt Rate - Afr Amer 65 mL/min (>60); Estimated Creatinine Clearance 48.53 ml/min; Glucose 265 mg/dL (74-106); Phosphorus 3.2 mg/dL (2.5-4.9); Potassium 4.4 mmol/L (3.5-5.1); Sodium Level 135 mmol/L (136-145)
[2018-05-17] MEDS: Spironolactone 25 MG Tablet PO (08:18)
[2018-05-17] MEDS: Aspirin E.C. 81 MG Tablet PO (08:18)
[2018-05-17] MEDS: Carvedilol 3.125 MG TABLET PO ×2 (08:18→22:15)
[2018-05-17] MEDS: Clopidogrel Bisulfate 75 MG Tablet PO (08:19)
[2018-05-17] MEDS: Lisinopril 2.5 MG Tablet PO (08:19)
[2018-05-17] MEDS: Famotidine 20 MG Tablet 40 MG PO (08:19)
[2018-05-17] MEDS: Insulin Lispro 100 UNIT/ML INSULN.PEN 16 UNIT SC ×3 (08:23→16:15)
[2018-05-17 11:36] LABS: Bedside Glucose 334 mg/dL (70-110)
[2018-05-17 16:35] LABS: Bedside Glucose 413 mg/dL (70-110)
[2018-05-17] MEDS: Atorvastatin Calcium 40 MG Tablet PO (22:16)
[2018-05-17 22:36] LABS: Bedside Glucose 412 mg/dL (70-110)
[2018-05-18] VITALS (15 sets, daily range): BP systolic 90–105; BP diastolic 61–70; PULSE 62–82; RESP 16–20; TEMP 36.2–37.1; O2SAT 92–97
[2018-05-18] MEDS: Gabapentin 300 MG Capsule PO ×3 (06:58→21:12)
[2018-05-18 07:06] LABS: Bedside Glucose 444 mg/dL (70-110)
[2018-05-18] MEDS: Ipratropium/Albuterol Sulfate 3 ML AMPUL.NEB INHALATION ×3 (07:11→19:26)
[2018-05-18 07:40] LABS: Prothrombin Time (Protime)PT. 44.7 SECONDS (11.7-14.9)
[2018-05-18 07:44] LABS: Anion Gap 9 (5-15); BUN 36 mg/dL (7-18); BUN/Creat Ratio 25.2 RATIO (10-20); Calcium,Total 8.5 mg/dL (8.5-10.1); Chloride 99 mmol/L (98-107); Creatinine, Serum 1.43 mg/dL (0.70-1.30); EST Glomerular Filtration Rate 55 mL/min (>60); Est Glom Filt Rate - Afr Amer 66 mL/min (>60); Estimated Creatinine Clearance 48.87 ml/min; Glucose 414 mg/dL (74-106); Potassium 4.5 mmol/L (3.5-5.1); Sodium Level 133 mmol/L (136-145)
[2018-05-18 07:46] LABS: International Normalized Ratio 4.7
[2018-05-18] MEDS: Insulin Lispro 100 UNIT/ML INSULN.PEN 16 UNIT SC ×3 (08:11→17:08)
--- NOTE | 2018-05-18 10:02 | PCM.PN.HOSP ---
Subjective: feeling better and breathing better, very little cough Vitals/I&O's: Vital Signs Temp Pulse Resp BP Pulse Ox 97.6 F L 80 17 105/62 95 05/18/18 08:00 05/18/18 08:00 05/18/18 08:00 05/18/18 08:00 05/18/18 08:00 Oxygen Flow Rate (L/min) 2 Oxygen Delivery Method Room Air Weight: 200 lb 2.876 oz Body Mass Index (BMI) 34.3 Finger Stick Blood Glucose 303 Intake and Output for Last 24 Hours 05/16/18 05/17/18 05/18/18 23:59 23:59 23:59 Intake Total 2602 / 2602 200 / 200 Output Total 700 / 700 1450 / 1450 Balance 1902 / 1902 -1250 / -1250 General: Alert, Oriented x3, Cooperative, No apparent distress HEENT: Atraumatic, EOMI, Normocephalic Oral: Moist Mucosa Neck: Supple, No JVD Lungs: Normal air movement, No rhonchi, Wheezes Cardiovascular: Regular rate, Regular Rhythm, Normal S1, Normal S2, No murmurs Abdomen: Soft, Non Tender, Non-Distended, No Hepato-splenomegaly Extremities: No edema, Capillary Refill Less than 3 Seconds Skin: No rashes, No breakdown Neurological: Neuro grossly intact, Sensory exam intact to light touch and pain Psych/Mental Status: Normal Affect, Appropriate Microbiology Past 72 Hours 05/17/18 08:30 Sputum, Expectorated/Coughed Gram Stain - Final 05/17/18 08:30 Sputum, Expectorated/Coughed Respiratory Culture - Preliminary Appears to be normal respiratory parrish. Further studies to follow. 05/17/18 07:40 Mucosa - Nasopharyngeal Respiratory Panel (PCR) - Final 05/17/18 09:10 Urine, Clean Catch Streptococcus pneumoniae Antigen (M - Final 05/17/18 09:10 Urine, Clean Catch Legionella Antigen - Final Laboratory Results 05/17/18 11:11: POC Glucose 334 H 05/17/18 16:14: POC Glucose 413 H 05/17/18 22:24: POC Glucose 412 H 05/18/18 06:39: PT 44.7 H, INR 4.7 H* 05/18/18 06:39: Sodium 133 L, Potassium 4.5, Chloride 99, Carbon Dioxide 25.0, Anion Gap 9, BUN 36 H, Creatinine 1.43 H, Estim Creat Clear Calc 48.87, Est GFR (MDRD) Af Amer 66, Est GFR (MDRD) Non-Af 55 L, BUN/Creatinine Ratio 25.2 H, Glucose 414 H, Calcium 8.5 05/18/18 06:51: POC Glucose 444 H Current Medications Albuterol/Ipratropium (Duoneb) 3 ml INHALATION Q6H.RT [facility] Last Admin: 05/18/18 07:11 Dose: 3 ml Aspirin (Ecotrin) 81 mg PO DAILY [facility] Last Admin: 05/17/18 08:18 Dose: 81 mg Atorvastatin Calcium (Lipitor) 40 mg PO QHS [facility] Last Admin: 05/17/18 22:16 Dose: 40 mg Carvedilol (Coreg) 3.125 mg PO BID [facility] Last Admin: 05/17/18 22:15 Dose: 3.125 mg Clopidogrel Bisulfate (Plavix) 75 mg PO DAILY [facility] Last Admin: 05/17/18 08:19 Dose: 75 mg Famotidine (Pepcid) 40 mg PO DAILY [facility] Last Admin: 05/17/18 08:19 Dose: 40 mg Furosemide (Lasix) 80 mg PO BID [facility] Last Admin: 05/17/18 22:12 Dose: 80 mg Gabapentin (Neurontin) 300 mg PO TID [facility] Last Admin: 05/18/18 06:58 Dose: 300 mg Guaifenesin (Robitussin) 15 ml PO Q6H PRN PRN PRN Reason: COUGH Last Admin: 05/17/18 16:12 Dose: 15 ml Levofloxacin (Levaquin Iv) 750 mg in 150 mls @ 100 mls/hr IV Q48 [facility] Insulin Glargine (Lantus (Bkc)) 70 units SC QHS [facility] Last Admin: 05/17/18 22:25 Dose: 70 units Insulin Human Lispro (Humalog Kwikpen (Bkc)) 16 unit SC TIDAC [facility] Last Admin: 05/18/18 08:11 Dose: 16 u Lisinopril (Zestril) 2.5 mg PO DAILY [facility] Last Admin: 05/17/18 08:19 Dose: 2.5 mg Magnesium Hydroxide (Milk Of Magnesia) 30 ml PO DAILY PRN PRN PRN Reason: Constipation Methylprednisolone (Solu-Medrol) 40 mg IV BID [facility] Potassium Chloride (K-Dur) 20 meq PO DAILY [facility] Last Admin: 05/17/18 08:19 Dose: 20 meq Sodium Chloride () 5 - 15 ml IV UD PRN PRN Reason: SALINE FLUSH Spironolactone (Aldactone) 25 mg PO DAILY [facility] Last Admin: 05/17/18 08:18 Dose: 25 mg Medical Necessity - Tobacco Use Smoking Status: Current every day smoker Assessment/Plan All Active Problems (Last Reviewed 02/04/18 @ 16:06 by Keven Willingham MD) Hypokalemia (Acute) Hypotension (Acute) Acute on chronic renal failure (Acute) Near syncope (Acute) Light headedness (Acute) Chest pain (Acute) Pneumonia (Resolved) 1. Acute hypoxic respiratory failure secondary to bronchitis and possible pneumonia -We will decrease IV Solu-Medrol from 40 mg every 8 to twice daily given his elevated blood sugars as well as his improvement in respiratory status -Currently on room air -Continue with Levaquin 750 every 48 -DuoNeb 2. A. fib/hypertension/CAD/status post pacemaker/supratherapeutic INR/chronic systolic CHF -Continue on Coreg, aspirin, statin, lisinopril, Plavix -We will hold Coumadin given that his INR is currently 4.7 -Repeat INR in a.m. -Continue with Lasix 3. DM 2 -Blood sugars in the 400s currently -Continue with Lantus 70 units nightly and NovoLog 16 units TIDWM -Accu-Cheks before meals at bedtime -Will add SSI 4. CKD 3 -Creatinine is at baseline -Can you to monitor 5. GERD -Stable -Continue with Pepcid DVT: SCDs Code Visit Inpatient E&M: 53312 Subs Hosp L2
--- NOTE | 2018-05-18 10:10 | PN_ITS ---
Subjective: feeling better and breathing better, very little cough Vitals/I&O's: Vital Signs Temp Pulse Resp BP Pulse Ox 97.6 F L 80 17 105/62 95 05/18/18 08:00 05/18/18 08:00 05/18/18 08:00 05/18/18 08:00 05/18/18 08:00 Oxygen Flow Rate (L/min) 2 Oxygen Delivery Method Room Air Weight: 200 lb 2.876 oz Body Mass Index (BMI) 34.3 Finger Stick Blood Glucose 303 Intake and Output for Last 24 Hours 05/16/18 05/17/18 05/18/18 23:59 23:59 23:59 Intake Total 2602 / 2602 200 / 200 Output Total 700 / 700 1450 / 1450 Balance 1902 / 1902 -1250 / -1250 General: Alert, Oriented x3, Cooperative, No apparent distress HEENT: Atraumatic, EOMI, Normocephalic Oral: Moist Mucosa Neck: Supple, No JVD Lungs: Normal air movement, No rhonchi, Wheezes Cardiovascular: Regular rate, Regular Rhythm, Normal S1, Normal S2, No murmurs Abdomen: Soft, Non Tender, Non-Distended, No Hepato-splenomegaly Extremities: No edema, Capillary Refill Less than 3 Seconds Skin: No rashes, No breakdown Neurological: Neuro grossly intact, Sensory exam intact to light touch and pain Psych/Mental Status: Normal Affect, Appropriate Microbiology Past 72 Hours 05/17/18 08:30 Sputum, Expectorated/Coughed Gram Stain - Final 05/17/18 08:30 Sputum, Expectorated/Coughed Respiratory Culture - Preliminary Appears to be normal respiratory parrish. Further studies to follow. 05/17/18 07:40 Mucosa - Nasopharyngeal Respiratory Panel (PCR) - Final 05/17/18 09:10 Urine, Clean Catch Streptococcus pneumoniae Antigen (M - Final 05/17/18 09:10 Urine, Clean Catch Legionella Antigen - Final Laboratory Results 05/17/18 11:11: POC Glucose 334 H 05/17/18 16:14: POC Glucose 413 H 05/17/18 22:24: POC Glucose 412 H 05/18/18 06:39: PT 44.7 H, INR 4.7 H* 05/18/18 06:39: Sodium 133 L, Potassium 4.5, Chloride 99, Carbon Dioxide 25.0, Anion Gap 9, BUN 36 H, Creatinine 1.43 H, Estim Creat Clear Calc 48.87, Est GFR (MDRD) Af Amer 66, Est GFR (MDRD) Non-Af 55 L, BUN/Creatinine Ratio 25.2 H, Glucose 414 H, Calcium 8.5 05/18/18 06:51: POC Glucose 444 H Current Medications Albuterol/Ipratropium (Duoneb) 3 ml INHALATION Q6H.RT [facility] Last Admin: 05/18/18 07:11 Dose: 3 ml Aspirin (Ecotrin) 81 mg PO DAILY [facility] Last Admin: 05/17/18 08:18 Dose: 81 mg Atorvastatin Calcium (Lipitor) 40 mg PO QHS [facility] Last Admin: 05/17/18 22:16 Dose: 40 mg Carvedilol (Coreg) 3.125 mg PO BID [facility] Last Admin: 05/17/18 22:15 Dose: 3.125 mg Clopidogrel Bisulfate (Plavix) 75 mg PO DAILY [facility] Last Admin: 05/17/18 08:19 Dose: 75 mg Famotidine (Pepcid) 40 mg PO DAILY [facility] Last Admin: 05/17/18 08:19 Dose: 40 mg Furosemide (Lasix) 80 mg PO BID [facility] Last Admin: 05/17/18 22:12 Dose: 80 mg Gabapentin (Neurontin) 300 mg PO TID [facility] Last Admin: 05/18/18 06:58 Dose: 300 mg Guaifenesin (Robitussin) 15 ml PO Q6H PRN PRN PRN Reason: COUGH Last Admin: 05/17/18 16:12 Dose: 15 ml Levofloxacin (Levaquin Iv) 750 mg in 150 mls @ 100 mls/hr IV Q48 [facility] Insulin Glargine (Lantus (Bkc)) 70 units SC QHS [facility] Last Admin: 05/17/18 22:25 Dose: 70 units Insulin Human Lispro (Humalog Kwikpen (Bkc)) 16 unit SC TIDAC [facility] Last Admin: 05/18/18 08:11 Dose: 16 u Lisinopril (Zestril) 2.5 mg PO DAILY [facility] Last Admin: 05/17/18 08:19 Dose: 2.5 mg Magnesium Hydroxide (Milk Of Magnesia) 30 ml PO DAILY PRN PRN PRN Reason: Constipation Methylprednisolone (Solu-Medrol) 40 mg IV BID [facility] Potassium Chloride (K-Dur) 20 meq PO DAILY [facility] Last Admin: 05/17/18 08:19 Dose: 20 meq Sodium Chloride () 5 - 15 ml IV UD PRN PRN Reason: SALINE FLUSH Spironolactone (Aldactone) 25 mg PO DAILY [facility] Last Admin: 05/17/18 08:18 Dose: 25 mg Medical Necessity - Tobacco Use Smoking Status: Current every day smoker Assessment/Plan All Active Problems (Last Reviewed 02/04/18 @ 16:06 by Keven Willingham MD) Hypokalemia (Acute) Hypotension (Acute) Acute on chronic renal failure (Acute) Near syncope (Acute) Light headedness (Acute) Chest pain (Acute) Pneumonia (Resolved) 1. Acute hypoxic respiratory failure secondary to bronchitis and possible pneumonia -We will decrease IV Solu-Medrol from 40 mg every 8 to twice daily given his elevated blood sugars as well as his improvement in respiratory status -Currently on room air -Continue with Levaquin 750 every 48 -DuoNeb 2. A. fib/hypertension/CAD/status post pacemaker/supratherapeutic INR/chronic systolic CHF -Continue on Coreg, aspirin, statin, lisinopril, Plavix -We will hold Coumadin given that his INR is currently 4.7 -Repeat INR in a.m. -Continue with Lasix 3. DM 2 -Blood sugars in the 400s currently -Continue with Lantus 70 units nightly and NovoLog 16 units TIDWM -Accu-Cheks before meals at bedtime -Will add SSI 4. CKD 3 -Creatinine is at baseline -Can you to monitor 5. GERD -Stable -Continue with Pepcid DVT: SCDs Code Visit Inpatient E&M: 98511 Subs Hosp L2
[2018-05-18] MEDS: Spironolactone 25 MG Tablet PO (10:24)
[2018-05-18] MEDS: Carvedilol 3.125 MG TABLET PO ×2 (10:25→21:12)
[2018-05-18] MEDS: Aspirin E.C. 81 MG Tablet PO (10:25)
[2018-05-18] MEDS: Furosemide 80 MG Tablet PO ×2 (10:26→21:12)
[2018-05-18] MEDS: Famotidine 20 MG Tablet 40 MG PO (10:26)
[2018-05-18] MEDS: Clopidogrel Bisulfate 75 MG Tablet PO (10:26)
[2018-05-18] MEDS: 0.9% NaCl Peripheral Flush Adult/Peds IV ×2 (10:26→21:16)
[2018-05-18] MEDS: levoFLOXacin IV 750 MG/150 ML BAG 100 MG IV (10:26)
[2018-05-18] MEDS: Lisinopril 2.5 MG Tablet PO (10:27)
[2018-05-18 12:05] LABS: Bedside Glucose 469 mg/dL (70-110)
[2018-05-18] MEDS: Insulin Lispro 100 UNIT/ML INSULN.PEN SQ ×3 (12:42→21:14)
[2018-05-18 17:16] LABS: Bedside Glucose 316 mg/dL (70-110)
[2018-05-18 17:16] LABS: Bedside Glucose 350 mg/dL (70-110)
[2018-05-18] MEDS: Atorvastatin Calcium 40 MG Tablet PO (21:12)
[2018-05-18 21:50] LABS: Bedside Glucose 308 mg/dL (70-110)
[2018-05-19 00:57] VITALS: PULSE 80; RESP 20
[2018-05-19] MEDS: Ipratropium/Albuterol Sulfate 3 ML AMPUL.NEB INHALATION ×2 (00:57→07:24)
[2018-05-19 02:00] VITALS: BP 92/55; PULSE 80; RESP 16; TEMP 36.6; O2SAT 93
[2018-05-19 03:31] VITALS: PULSE 81
[2018-05-19] MEDS: Gabapentin 300 MG Capsule PO (05:02)
[2018-05-19 07:05] LABS: Bedside Glucose 263 mg/dL (70-110)
[2018-05-19 07:24] VITALS: PULSE 77; RESP 20; O2SAT 93
[2018-05-19 07:27] VITALS: PULSE 80
[2018-05-19 08:10] LABS: Prothrombin Time (Protime)PT. 37.8 SECONDS (11.7-14.9)
[2018-05-19 08:13] LABS: International Normalized Ratio 3.8
--- NOTE | 2018-05-19 08:22 | DCINST_ITS ---
You will use the following diet at home:: Calorie/Carbohydrate Controlled (specify 1200, 1400, etc) Your food should be the consistency of: Regular Your liquids should be the consistency of: Regular/Thin Discharge Activity: Return to Normal Activity Call your doctor if you observe: Fever of 101 or Higher, Shortness of breath, Dizziness, Chest pain Pending Tests on Discharge: Have an INR drawn on 05/20. Because you are on an antibiotic, this can interact with coumadin and make your INR elevated. Allergies/Adverse Reactions: Allergies tramadol Allergy (Verified 09/06/17 21:37) Hives Penicillins Adverse Reaction (Verified 09/06/17 21:37) Nausea Medications to take at Discharge Insulin Glargine,Hum.rec.anlog [Toulexo Solostar] 70 unit SQ QHS 08/16/16 gabapentin 300 mg capsule 300 mg PO TID cap 06/05/17 insulin aspart U- 100 100 unit/mL subcutaneous pen 16 unit SC TIDCM ml 06/08/17 furosemide 80 mg tablet 80 mg PO BID #60 tab 08/11/17 potassium chloride ER 20 mEq tablet,extended release(part/cryst) 20 meq PO DAILY #30 tab 09/02/17 Atorvastatin Calcium [Lipitor] 40 mg PO QHS 09/07/17 Carvedilol [Coreg] 3.125 mg PO BID 09/07/17 Aspirin [Aspirin EC] 81 mg PO DAILY 05/12/18 Lisinopril [Zestril] 2.5 mg PO DAILY 05/12/18 Spironolactone 25 mg PO DAILY 05/12/18 clopidogrel 75 mg tablet 75 mg PO DAILY #30 tab 05/13/18 famotidine 40 mg tablet 40 mg PO DAILY #30 tab 05/13/18 Prednisone [Deltasone] 40 mg PO DAILY #20 tablet 05/19/18 Warfarin Sodium 2.5 mg PO SUSA #0 05/19/18 Warfarin Sodium 5 mg PO MOTUWETHFR #30 tab 05/19/18 levoFLOXacin tablet [Levaquin tablet] 750 mg PO QODAY #4 tablet 05/19/18 The following prescriptions were given: levoFLOXacin tablet [Levaquin tablet] 750 mg PO QODAY #4 tablet Prednisone [Deltasone] 40 mg PO DAILY #20 tablet Primary Care Physician: Allen Motta MD [Primary Care Provider] - Please follow up with your Primary Care Physician in: 3-5 days Test Results: Test results from this visit will be discussed in further detail at your follow- up appointment, if applicable.
--- NOTE | 2018-05-19 08:23 | PCM.DC.SUM ---
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) ICD (implantable cardioverter-defibrillator), biventricular, in situ (Chronic) Atherosclerosis of [place] coronary artery of [place] heart without angina pectoris (Chronic) PCI to LAD & diagonal in 2009; Diabetes mellitus (Chronic) Obesity (Chronic) Hypertension (Chronic) Benign prostatic hypertrophy (Chronic) COPD (chronic obstructive pulmonary disease) (Chronic) GERD (gastroesophageal reflux disease) (Chronic) [place] (obstructive sleep apnea) (Chronic) AICD (automatic cardioverter/defibrillator) present (Chronic) 12/2009 implant; PAD (peripheral artery disease) (Chronic) Pleural effusion, left (Chronic) S/P PTCA (percutaneous transluminal coronary angioplasty) (Chronic) HLD (hyperlipidemia) (Chronic) Ischemic cardiomyopathy (Chronic) Systolic CHF, chronic (Chronic) Atrial fibrillation (Chronic) AV Node RFA 07/11/2015 H/O atrioventricular chris ablation (Chronic ~07/11/15) Hospital Course and Treatment Imaging Results: CXR: IMPRESSION: Possible developing right lower lobe infiltrate Operations: None Procedures: None Summary of Care Provided: Per HPI: The patient is a 57 year old M with an extensive past medical history as listed below. He was admitted through the ED on 05/17/2018 with a complaint of worsening shortness of breath and a productive cough for the past 3 days. He was recently seen in the ED for similar symptoms and treated with a Z-Lion for bronchitis. However symptoms worsen he still had worsening shortness of breath with a cough productive of greenish sputum. Cough actually worsened and today he said he simply felt like he could not breathe anymore. He did not have any fever or chills and had pleuritic chest pain with coughing but no hemoptysis. He called the EMS and had to be put on BiPAP on account of hypoxia. CBC showed white cell count of 7 and BMP was significant for sodium of 131 as well as creatinine of 2.1. EKG showed paced rhythm with rate at 88 and chest x-ray showed chronic changes and possible right lower lobe infiltrate. In the ED, they try to wean him off the BiPAP but he became more hypoxic and had to be put on BiPAP again. He was eventually transitioned to oxygen with saturation in the mid 90s but could not tolerate being off of oxygen. He is been admitted to be managed for respiratory insufficiency due to community-acquired pneumonia. He was started on IV Levaquin. General: Alert, Oriented x3, Cooperative, No apparent distress HEENT: Atraumatic, EOMI, Normocephalic Oral: Moist Mucosa Neck: Supple, No JVD Lungs: CTAB, Normal air movement, No rhonchi, No Wheezes Cardiovascular: Regular rate, Regular Rhythm, Normal S1, Normal S2, No murmurs Abdomen: Soft, Non Tender, Non-Distended, No Hepato-splenomegaly Extremities: No edema, Capillary Refill Less than 3 Seconds Skin: No rashes, No breakdown Neurological: Neuro grossly intact, Sensory exam intact to light touch and pain Psych/Mental Status: Normal Affect, Appropriate Hospital Course: 1. Acute hypoxic respiratory failure secondary to bronchitis and possible pneumonia - Presented from home with acute hypoxia requiring BiPAP. He had a chest x-ray on admission which demonstrated a possibly early right lower lobe infiltrate. He was started on Levaquin every other day given his creatinine clearance is less than 50. He was also started on Solu-Medrol 40 mg every 8 hours, and has since improved and was yesterday decreased to twice daily dosing for the steroids partly because his blood sugars were becoming uncontrolled into the 4-500 range. He currently feels much better and would like to go home. We will discharge him on 8 more days of Levaquin which is 4 pills every other day, and prednisone 40 mg daily for 10 days. We will also provide an albuterol inhaler until he can follow-up with his PCP. 2. A. fib/hypertension/CAD/status post pacemaker/supratherapeutic INR/chronic systolic CHF - He is on Coumadin for his A. fib, and he is generally very well controlled. However since he was started on Levaquin, his INR has been elevated to between 4 and 5. On the day of discharge his INR is 3.8. And it was discussed with him that he needs to hold his Coumadin until he has a repeat INR this week and is told by his PCP to resume Coumadin. I did discuss with him that the INR is elevated because of the antibiotic that he is currently on and that once he is finished with his antibiotic his INR should return to baseline. 3. DM 2 - He is generally fairly controlled at home with his regimen of Lantus 70 units and NovoLog 16 units 3 times a day with meals, however because of the steroids he was given for his bronchitis his blood sugars had been fairly elevated. He was added a sliding scale insulin while here in the hospital to help control his elevated blood sugars, I feel that now that he will be down to once a day dosing of his steroids is that of 3 times a day his blood sugar should be slightly elevated but not out of control while at home. And once his steroids are completed his blood sugars should return to baseline. 4. His other diagnoses were evaluated and his medications were continued were appropriate - Physical Exam Vital Signs Temp Pulse Resp BP Pulse Ox 97.9 F 80 16 92/55 L 93 05/19/18 02:00 05/19/18 07:27 05/19/18 02:00 05/19/18 02:00 05/19/18 02:00 Oxygen Flow Rate (L/min) 2 Oxygen Delivery Method Room Air Weight: 201 lb 15.095 oz Body Mass Index (BMI) 34.3 Finger Stick Blood Glucose 303 Intake and Output for Last 24 Hours 05/17/18 05/18/18 05/19/18 23:59 23:59 23:59 Intake Total 2602 / 2602 1609.4 / 1609.4 240 / 240 Output Total 700 / 700 1450 / 1450 1100 / 1100 Balance 1902 / 1902 159.4 / 159.4 -860 / -860 Microbiology Past 72 Hours 05/17/18 08:30 Gram Stain - Final Sputum, Expectorated/Coughed Respiratory Culture - Preliminary Appears to be normal respiratory parrish. Further studies to follow. 05/17/18 07:40 Respiratory Panel (PCR) - Final Mucosa - Nasopharyngeal 05/17/18 09:10 Streptococcus pneumoniae Antigen (M - Final Urine, Clean Catch 05/17/18 09:10 Legionella Antigen - Final Urine, Clean Catch Laboratory Tests Past 24 Hrs 05/19/18 06:05 PT 37.8 H INR 3.8 H* POC Glucose 05/19/18 05/18/18 05/18/18 06:44 21:10 17:06 POC Glucose 263 H 308 H 316 H 05/18/18 05/18/18 15:23 11:59 POC Glucose 350 H 469 H* Discharge Activity: Return to Normal Activity Call your doctor if you observe: Fever of 101 or Higher, Shortness of breath, Dizziness, Chest pain Home Medications: Medications to take at Discharge Insulin Glargine,Hum.rec.anlog [Toshaan Solostar] 70 unit SQ QHS 08/16/16 gabapentin 300 mg capsule 300 mg PO TID cap 06/05/17 insulin aspart U- 100 100 unit/mL subcutaneous pen 16 unit SC TIDCM ml 06/08/17 furosemide 80 mg tablet 80 mg PO BID #60 tab 08/11/17 potassium chloride ER 20 mEq tablet,extended release(part/cryst) 20 meq PO DAILY #30 tab 09/02/17 Atorvastatin Calcium [Lipitor] 40 mg PO QHS 09/07/17 Carvedilol [Coreg] 3.125 mg PO BID 09/07/17 Aspirin [Aspirin EC] 81 mg PO DAILY 05/12/18 Lisinopril [Zestril] 2.5 mg PO DAILY 05/12/18 Spironolactone 25 mg PO DAILY 05/12/18 clopidogrel 75 mg tablet 75 mg PO DAILY #30 tab 05/13/18 famotidine 40 mg tablet 40 mg PO DAILY #30 tab 05/13/18 Albuterol IH (ProAir) [Proair Hfa] 1 - 2 puff INHALATION Q4H PRN PRN #1 inhaler 05/19/18 Prednisone [Deltasone] 40 mg PO DAILY #20 tablet 05/19/18 Warfarin Sodium 2.5 mg PO SUSA #0 05/19/18 Warfarin Sodium 5 mg PO MOTUWETHFR #30 tab 05/19/18 levoFLOXacin tablet [Levaquin tablet] 750 mg PO QODAY #4 tablet 05/19/18 Following Prescrptions Were Given to Patient: Albuterol IH (ProAir) [Proair Hfa] 1 - 2 puff INHALATION Q4H PRN PRN #1 inhaler PRN Reason: Sob &/Or Wheezing levoFLOXacin tablet [Levaquin tablet] 750 mg PO QODAY #4 tablet Prednisone [Deltasone] 40 mg PO DAILY #20 tablet Primary Care Physician: Allen Motta MD [Primary Care Provider] - Please follow up with your Primary Care Physician in: 3-5 days Disposition: Home Minutes spent on discharge:: 35 Patient Condition:: Good Medical Necessity - Tobacco Use Smoking Status: Current every day smoker Meaningful Use Info Meaningful Use Diagnoses (Choose all that apply): None applicable Code Visit Inpatient E&M: 29290 Disch Hosp
[2018-05-19] MEDS: Insulin Lispro 100 UNIT/ML INSULN.PEN 16 UNIT SC (08:28)
[2018-05-19] MEDS: Insulin Lispro 100 UNIT/ML INSULN.PEN SQ (08:29)
[2018-05-19 08:30] VITALS: BP 95/53; PULSE 80; RESP 18; TEMP 37.1; O2SAT 95
--- NOTE | 2018-05-20 17:15 | CASEMGMT ---
RN JUAN Discharge Follow-up Phone Call: ERNESTO: Edil Strata: 3 Call Date: 05/20/18 Discharge Date: 05/19/18 Time of Call: 0586 Duration: 0 ? Admitting Diagnosis: Pneumonia This RN JUAN attempted to contact pt via phone regarding discharge follow-up. Voicemail received and message left requesting a return call if pt has questions or concerns. Zeke Quick RN
--- NOTE | 2018-05-21 12:43 | CASEMGMT ---
Received phone call from Monika Marin RN with [facility]. Monika has been attempting to reach patient via phone since discharge, Monika wanted to confirm that patient discharged home. Monika confirmed that she has the same phone number as on patient's facesheet. Monika will attempt to contact patient's Count includes the [facility] provider, Michele BOSCH. Judy Shipley LPN Clinical Support
== END 2018-05-19 10:16 | disposition home or self-care (01) | DRG 193 ==
LOC: ED 05-17 00:20 → MS3 05-17 00:33 → PCU 05-17 00:57
PROVIDERS: Admitting Provider Student in an Organized Health Care Education/Training Program; Emergency Provider Emergency Medicine; Family Provider Family Medicine; PCP Family Medicine; Visit Provider Family Medicine
DX: J18.9 Pneumonia, unspecified organism (principal); J96.01 Acute respiratory failure with hypoxia; E87.1 Hypo-osmolality and hyponatremia; I50.22 Chronic systolic (congestive) heart failure; I13.0 Hypertensive heart and chronic kidney disease with heart failure and stage 1 through stage 4 chronic kidney disease, or unspecified chronic kidney disease; R79.1 Abnormal coagulation profile; E66.9 Obesity, unspecified; K21.9 Gastro-esophageal reflux disease without esophagitis; G47.33 Obstructive sleep apnea (adult) (pediatric); E78.5 Hyperlipidemia, unspecified; I25.5 Ischemic cardiomyopathy; N40.0 Benign prostatic hyperplasia without lower urinary tract symptoms; Z79.01 Long term (current) use of anticoagulants; Z95.810 Presence of automatic (implantable) cardiac defibrillator; Z68.34 Body mass index [BMI] 34.0-34.9, adult; Z79.4 Long term (current) use of insulin; N18.3 Chronic kidney disease, stage 3 (moderate); Z98.61 Coronary angioplasty status; Z79.899 Other long term (current) drug therapy; I25.10 Atherosclerotic heart disease of native coronary artery without angina pectoris; I51.3 Intracardiac thrombosis, not elsewhere classified
CPT/HCPCS: 36415; 71045; 80048; 80069; 82962; 83880; 84484; 85025; 85610; 87070; 87205; 87449; 87633; 93005; 94002; 94640; 97116; 97162; 97165; 97530; 99283; J7030; A4216

== ENCOUNTER → 2018-06-11 08:28 | Outpatient (CLI) | payer MEDICARE, SELFPAY ==
[2018-05-17 01:32] VITALS: BMI 34.3
[2018-06-11 11:10] LABS: International Normalized Ratio 2.1; Prothrombin Time (Protime)PT. 23.6 SECONDS (11.7-14.9)
--- OUTSIDE RECORDS SUMMARY | 2018-08-15 15:32 | XMS RPT_ITS ---
:1960 Author Organization NMIP Support Name Relationship Address Phone D Unavailable Unavailable Unavailable ARTHUR, ELIDA Unavailable Unavailable + SNOODGRASS, CAREY Unavailable Unavailable + D Unavailable Unavailable Unavailable ARTHUR, ELIDA Unavailable Unavailable + SNOODGRASS, CAREY Unavailable Unavailable + D Unavailable Unavailable Unavailable ARTHUR, ELIDA Unavailable Unavailable + SNOODGRASS, CAREY Unavailable Unavailable + D Unavailable Unavailable Unavailable ARTHUR, ELIDA Unavailable Unavailable + SNOODGRASS, CAREY Unavailable Unavailable + D Unavailable Unavailable Unavailable ARTHUR, ELIDA Unavailable Unavailable + SNOODGRASS, CAREY Unavailable Unavailable + D Unavailable Unavailable Unavailable ARTHUR, ELIDA Unavailable Unavailable + SNOODGRASS, CAREY Unavailable Unavailable + D Unavailable Unavailable Unavailable ARTHUR, ELIDA Unavailable Unavailable + SNOODGRASS, CAREY Unavailable Unavailable + D Unavailable Unavailable Unavailable ARTHUR, ELIDA Unavailable Unavailable + SNOODGRASS, CAREY Unavailable Unavailable + D Unavailable Unavailable Unavailable ARTHUR, ELIDA Unavailable Unavailable + SNOODGRASS, CAREY Unavailable Unavailable + D Unavailable Unavailable Unavailable ARTHUR, ELIDA Unavailable Unavailable + SNOODGRASS, CAREY Unavailable Unavailable + D Unavailable Unavailable Unavailable ARTHUR, ELIDA Unavailable Unavailable + SNOODGRASS, CAREY Unavailable Unavailable + D Unavailable Unavailable Unavailable ARTHUR, ELIDA Unavailable Unavailable + SNOODGRASS, CAREY Unavailable Unavailable + D Unavailable Unavailable Unavailable ARTHUR ELIDA Unavailable Unavailable + CAREY SMITH Unavailable Unavailable + D Unavailable Unavailable Unavailable ARTHUR ELIDA Unavailable Unavailable + CAREY SMITH Unavailable Unavailable + D Unavailable Unavailable Unavailable ARTHUR ELIDA Unavailable Unavailable + CAREY SMITH Unavailable Unavailable + D Unavailable Unavailable Unavailable ARTHUR ELIDA Unavailable Unavailable + CAREY SMITH Unavailable Unavailable + D Unavailable Unavailable Unavailable ARTHUR ELIDA Unavailable Unavailable + CAREY SMITH Unavailable Unavailable + Care Team Providers Name Role Phone JEANINE SAMANIEGO Attending Unavailable TESTRAKE, JEANINE Referring Unavailable TESTRAKE, JEANINE Referring Unavailable DEL ANGEL, ANA MARIA D Attending Unavailable TESTRAKEJEANINE Referring Unavailable TESTRAKE, JEANINE Attending Unavailable TESTRAKEJEANINE Referring Unavailable Demetrius WOODS (PA-C) Attending Unavailable Demetrius WOODS (PA-C) Referring Unavailable GISELALLEN Attending Unavailable GISELALLEN Attending Unavailable GISEL, ALLEN Bee Referring Unavailable DEL ANGEL, ANA MARIA D Referring Unavailable DEL ANGEL, ANA MARIA D Referring Unavailable DEL ANGEL, ANA MARIA D Referring Unavailable DEL ANGEL, ANA MARIA D Attending Unavailable DEL ANGEL, ANA MARIA D Referring Unavailable TESTRAKEJEANINE Attending Unavailable TESTRAKEJEANINE Referring Unavailable GISELALLEN Referring Unavailable GISELALLEN Attending Unavailable GISELALLEN Referring Unavailable GISEL, ALLEN Bee Referring Unavailable DEL ANGEL, ANA MARIA D Referring Unavailable DEL ANGEL, ANA MARIA D Referring Unavailable DEL ANGEL, ANA MARIA D Attending Unavailable DEL ANGEL, ANA MARIA D Referring Unavailable KENYON PATEL (SELLING MANAGER) Referring Unavailable Demetrius WOODS (PAPhiC) Attending Unavailable Demetrius WOODS (PA-C) Referring Unavailable Demetrius WOODS (PA-C) Referring Unavailable Chrissie Verdugo Attending Unavailable Allen Batres Referring Unavailable Allen Batres Primary Care Unavailable Will Hidalgo Attending Unavailable Allen Batres Primary Care Unavailable Koram, Mildred Larissa Admitting Unavailable Kotsonis, Herminio F Attending Unavailable Koram, Mildred Larissa Admitting Unavailable Koram, Mildred Larissa Attending Unavailable Ravanna, Allen Primary Care Unavailable Koram, Mildred Larissa Consulting Unavailable Koram, Mildred Larissa Admitting Unavailable Herminio Whitaker Attending Unavailable Ravanna, Allen Primary Care Unavailable Herminio Whitaker F Consulting Unavailable Koram, Mildred Larissa Admitting Unavailable Herminio Whitaker F Attending Unavailable Ravanna, Allen Primary Care Unavailable Herminio Whitaker F Consulting Unavailable Tarsha, Keven Attending Unavailable Ravanna, Allen Primary Care Unavailable Shelley Briones Attending Unavailable Tarsha, Keven Attending Unavailable Ravanna, Allen Primary Care Unavailable Tarsha, Keven Attending Unavailable Tarsha, Keven Referring Unavailable Ravanna, Allen Primary Care Unavailable Ravanna, Allen Primary Care Unavailable Paco Lau Attending Unavailable Ravanna, Allen Primary Care Unavailable Yadira Multani Attending Unavailable Chrissie Verdugo Attending Unavailable Ravanna, Allen Referring Unavailable Tarsha, Calimesa Attending Unavailable Tarsha, [place] Referring Unavailable Ravanna, Allen Primary Care Unavailable Tarsha, Keven Attending Unavailable Ravanna, Allen Referring Unavailable Ravanna, Allen Primary Care Unavailable Tarsha, [place] Attending Unavailable Tarsha, Keven Referring Unavailable Ravanna, Allen Primary Care Unavailable Chrissie Verdugo Attending Unavailable Ravanna, Allen Referring Unavailable Ravanna, Allen Primary Care Unavailable PROBLEMS PROBLEMS DATE TYPE CONDITION / CODE ATTENDING STATUS SOURCE Unknown Z79.01 - correction Tarsha, Keven Active [facility] (current) use of Community anticoagulants / Hospital Z79.01(ICD-10) Repository Unknown I48.91 - Unspecified Tarsha, Keven Active [facility] atrial fibrillation / Community I48.91(ICD-10) Hospital Repository Active Lobar pneumonia, NA Active [facility] unspecified organism / Clinic Main J18.1(ICD-10) [facility] Repository Unknown I51.3 - Intracardiac Tarsha, [place] Active [facility] 9 thrombosis, not elsewhere Community classified / Hospital I51.3(ICD-10) Repository Unknown I25.5 - Ischemic Tarsha, [place] Active [facility] cardiomyopathy / Community I25.5(ICD-10) Hospital Repository Active Type 2 diabetes mellitus NA Active [facility] 5 with diabetic neuropathy, Clinic Main unspecified / [place] E11.40(ICD-10) Repository Active correction (current) use NA Active [facility] 9 of anticoagulants / Clinic Main Z79.01(ICD-10) [facility] Repository Active Cough / R05(ICD-10) NA Active [facility] Clinic Main [place] Repository Active Other fatigue / NA Active [facility] 8 R53.83(ICD-10) Clinic Main [place] Repository Unknown I25.10 - Atherosclerotic Tarsha, Keven Active [facility] 8 heart disease of [place] Community coronary artery without Hospital angina pectoris / Repository I25.10(ICD-10) Unknown Z95.810 - Presence of Tarsha, Keven Active [facility] automatic (implantable) Community cardiac defibrillator / Hospital Z95.810(ICD-10) Repository Unknown Z98.61 - Coronary Tarsha, Keven Active [facility] 8 angioplasty status / Community Z98.61(ICD-10) Hospital Repository Unknown E78.00 - Pure Tarsha, [place] Active [facility] 8 hypercholesterolemia, Community unspecified / Hospital E78.00(ICD-10) Repository Unknown E78.0 - Pure Tarsha, Keven Active [facility] hypercholesterolemia / Community E78.0(ICD-10) Hospital Repository Unknown I48.2 - Chronic atrial Tarsha, [place] Active [facility] 8 fibrillation / Community I48.2(ICD-10) Hospital Repository Active Peripheral vascular NA Active [facility] disease, unspecified / Clinic Main I73.9(ICD-10) [facility] Repository Active Disorder of kidney and NA Active [facility] 7 ureter, unspecified / Clinic Main N28.9(ICD-10) [facility] Repository Active Ischemic cardiomyopathy / NA Active [facility] 4 I25.5(ICD-10) Clinic Main [place] Repository Active Hypotension, unspecified NA Active [facility] / I95.9(ICD-10) Clinic Main [place] Repository Active Personal history of other NA Active [place] [address] drug therapy / Clinic Main Z92.29(ICD-10) [facility] Repository Active Essential (primary) NA Active [facility] hypertension / Clinic Main I10(ICD-10) [facility] Repository Active 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 [facility] 8 of insulin / Clinic Main Z79.4(ICD-10) [facility] Repository Active Epidermal thickening, NA [facility] 8 unspecified / Clinic Main L85.9(ICD-10) [facility] Repository PROCEDURES PROCEDURES No Procedure Records FoundRESULTS RESULTS PROTHROMBIN TIME W/INR Collected: 06/11/2018 Status: F Source: [place] 9:55 AM [facility] REPOSITORY TYPE CODE TESTS RESULT OUT OF RANGE REFERENCE UNITS LAB L300.4150 11.7-14.9 SECONDS High PROTIME 23.6 LAB L300.4200 Normal INR 2.1 Performed By: #### L300.3900 #### [facility] [address] [place], [address] OBSOLETE Observed: 06/09/2018 Status: COMPLETED Source: [place] 12:00 AM [facility] REPOSITORY Refill (FAMPWS) DAKOTAH PRATT JR ([id number]) 1960 M Date Time Provider Department 06/09/18 [facility] During your visit today, we recorded the following information about you: Kenyatta Ugalde RN 06/09/2018 11:01 AM Signed Patient has been identified by name and date of : Yes [facility] phones for refill(s): Pending Prescriptions Disp Refills GABAPENTIN 300 MG CAPSULE 84 capsule 2 Sig: Take 1 capsule by mouth three times daily for 90 days. JAZZ: No Date of last office visit in primary care: 06/02/18 Last 2 Encounter Wt Readings: Date: Wt: 06/02/2018 88.5 kg (195 lb) 05/12/2018 93.4 kg (206 lb) Previous labs/tests for medication: Blood Pressure: BUN (mg/dL) Date Value 06/02/2018 26 Sodium (mmol/L) Date Value 06/02/2018 132 Last 1 Encounter BP Readings: Date: BP: 06/02/2018 95/69 Liver Function: ALT (U/L) Date Value 02/09/2018 23 AST (U/L) Date Value 02/09/2018 24 Please advise. Thank you. Kenyatta Ugalde RN Allergies As of Date: 06/09/2018 Noted Allergy Reaction PENICILLINS 08/15/2013 16 - Unknown TRAMADOL 03/03/2016 2 - Rash 9 - Itching Date Reviewed: 06/02/2018 Reviewed by: Tory Craft LPN - Fully Assessed Reason for Visit: Refill Request [94] Order(s):gabapentin (NEURONTIN) 300 mg capsuleTake 1 capsule by mouth three times daily for 90 days.Disp: 84 capsuleRfl: 2 Prescriptions as of 06/09/2018 Sig: GABAPENTIN 300 MG CAPSULE Take 1 capsule by mouth three* ALBUTEROL SULFATE HFA 90 MCG/* Inhale 2 Puffs as instructed. PREDNISONE 20 MG TABLET Take 40 mg by mouth once eder* INSULIN LISPRO (U-100) 100 UN* Inject 16 Units subcutaneousl* INSULIN GLARGINE (U-300) CONC* INJECT 70 UNITS SUBCUTANEOUSL* LANCETS Test blood sugar(s) 2 daily. * FUROSEMIDE 80 MG TABLET Take 1 tablet by mouth twice * ULTICARE PEN NEEDLE 31 GAUGE * USE 1 NEEDLE PER DOSE 5 TIMES* BISACODYL 5 MG TABLET,DELAYED* Take 1 tablet by mouth as dir* BLOOD SUGAR DIAGNOSTIC STRIPS Test blood sugar(s) 3 times d* SPIRONOLACTONE 25 MG TABLET Take 25 mg by mouth once eder* POTASSIUM CHLORIDE 20 MEQ ORA* Take 20 mEq by mouth twice da* LISINOPRIL 2.5 MG TABLET Take 2.5 mg by mouth once corine* ATORVASTATIN 40 MG TABLET Take 1 tablet by mouth daily * CARVEDILOL 6.25 MG TABLET Take 0.5 tablets by mouth twi* WARFARIN 5 MG TABLET Take 5 mg by mouth daily as d* ASPIRIN 81 MG TABLET,DELAYED * Take 1 tablet by mouth once d* COMPOUNDED PRESCRIPTION Support stockings: 20- 30 mmhg* INSULIN SYRINGE U-100 WITH NE* Use bid OTC PRODUCT DiabetAid capsaicin 0.025% cr* BLOOD-GLUCOSE METER KIT Pt testing twice daily and pt* CPAP CLOPIDOGREL 75 MG TABLET Take 75 mg by mouth once eder* FAMOTIDINE 40 MG TABLET Take 40 mg by mouth once eder* NITROGLYCERIN 0.4 MG SUBLINGU* Dissolve 0.4 mg under the ton* Problem List As Of Date 06/09/2018 Noted Resolved Diabetes [E11.9] 04/12/2015 More... Cardiac defibrillator in place [Z95.810] INVALID FOR* More... Hypertension [I10] More... Mini stroke [I63.9] Heart attack [I21.9] 04/28/2017 Sleep apnea [G47.30] More... Hyperlipidemia [E78.5] Neuropathy [G62.9] Apical mural thrombus [I51.3] More... Cerebral infarction (HCC) [I63.9] More... PAD (peripheral artery disease) [I73.9] More... 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 Urinary retention [R33.9] INVALID FOR*04/28/2017 More... SUMMARY [V999.95] INVALID FOR*10/02/2016 More... Diabetes mellitus with neuropathy (HCC) [E11.40]INVALID FOR*04/12/2015 Type 2 diabetes mellitus with diabetic neuropat*INVALID FOR* Renal insufficiency [N28.9] INVALID FOR* Atrial fibrillation (HCC) [I48.91] INVALID FOR* Prescriptions ordered this encounter Disp Refills Start End GABAPENTIN 300 MG CAPSULE 84 c* 2 06/09/2018 09/07/2018 Route: ORAL Sig: Take 1 capsule by mouth three times daily for 90 days. Medications Discontinued During This Encounter gabapentin (NEURONTIN) 300 mg capsule 84 c* 2 03/17/2018 06/09/2018 Cmt: Maximum Refills Reached Sig: TAKE 1 CAPSULE THREE TIMES A DAY Disc: Reason for discontinue is not on file. Encounter Status:Closed by ALLEN BATRES MD on 06/09/18 XR CHEST 2V FRONTAL/LAT Observed: 06/04/2018 Status: F Source: [place] 1:22 PM [facility] REPOSITORY * * *Final Report* * * DATE OF EXAM: Jun 04 2018 1:22PM WOX [id number] - XR CHEST 2V FRONTAL/LAT / PROCEDURE REASON: Pneumonia of right upper lobe due to infectious organism (HCC) * * * * Physician Interpretation * * * * EXAMINATION: CHEST RADIOGRAPH (2 VIEW FRONTAL and LATERAL) CLINICAL HISTORY: Pneumonia of right upper lobe due to infectious organism (HCC) MQ: XC2_5 Comparison: 05/02/2018 RESULT: Stable right ICD/pacemaker and leads; battery pack obscures the right mid lung zone. No focal consolidation, pleural effusion or pneumothorax. Persistent peribronchial wall thickening which can be seen with reactive small airways or viral disease. Stable cardiomediastinal silhouette. Stable bones. IMPRESSION: Persistent peribronchial wall thickening which can be seen with reactive small airways or viral disease. No focal consolidation. Shredding Specialist: PSCB Transcribe Date/Time: Jun 04 2018 2:15P Dictated by : GAIL BARILLAS MD This examination was interpreted and the report reviewed and electronically signed by: GAIL BARILLAS MD on Jun 04 2018 2:17PM EST [id number] Observed: 06/04/2018 Status: COMPLETED Source: [place] 1:15 PM [facility] REPOSITORY HNO ID: [id number] Author: Byron Norris (Rt) Service: (none) Author Type: Ic Designer Gate Arrays Type: Progress Notes Filed: 06/04/2018 1:22 PM Note Text: Radiology Service Progress Note PATIENT NAME: Dakotah Pratt Jr DATE OF SERVICE: June 04, 2018 TIME: 1:15 PM PATIENT IDENTITY VERIFICATION COMPLETED USING TWO (2) METHODS: Patient confirmed name verbally and Date of . PATIENT GENDER DATA: Male PATIENT RELEVANT IMPLANT DATA REVIEWED: Not Applicable RADIOLOGY DEPARTMENT: General X-ray: Exam(s) Completed: Chest X-Ray PERIPHERAL IV DATA: Not applicable SIGNED BY: RT Jr June 04, 2018 1:15 PM PROTIME Collected: 06/02/2018 Status: F Source: [place] 11:16 AM [facility] REPOSITORY TYPE CODE TESTS RESULT OUT OF RANGE REFERENCE UNITS LAB PSEC 9.7-13.0 sec PT Sec 10.7 LAB INR 0.9-1.3 PT INR 1.0 Result Comment: Vitamin K Antagonist (VKA) Therapeutic Range: INR 2 to 3 (Target INR of 2.5) Note: For patients treated with VKA drugs, such as warfarin, the [place] [employer] 2012 Guideline recommends a therapeutic INR range of 2 to 3 (target INR of 2.5). This recommendation includes high-risk patients with antiphospholipid syndrome with previous arterial or venous thromboembolism, current-generation mechanical or bioprosthetic aortic heart valve replacement. Note: Patients with mechanical aortic valve replacement and additional risk factors for thromboembolic events (atrial fibrillation, previous thromboembolism, LV dysfunction, hypercoagulable conditions) or an older generation mechanical AVR (i.e., ball in-Cage) or any mechanical MVR should have a INR therapeutic range of 2.5 to 3.5 (target INR of 3). Teresa GH, et al. Chest 2012, 141:7S-47S Kilo RA et al. [facility] 2017, 70: 252-289 Performed By: #### PT, BMP #### [facility] [address] [address] BASIC METABOLIC PANL Collected: 06/02/2018 Status: F Source: [place] 11:16 AM [facility] REPOSITORY TYPE CODE TESTS RESULT OUT OF REFERENCE UNITS RANGE LAB GLU 74-99 mg/dL High Glucose 258 Result Comment: The [place] [employer] (ADA) provides guidance for cutoff values for fasting glucose and random glucose. The ADA defines fasting as no caloric intake for at least 8 hours. Fas ting plasma glucose results between 100 to 125 mg/dL indicate increased risk for diabetes (prediabetes). Fasting plasma glucose results greater than or equal to 126 mg/dL meet the criteria for diagnosis of diabetes. In the absence of unequivocal hyperglycemia, results should be confirmed by repeat testing. In a patient with classic symptoms of hyperglycemia or hyperglycemic crisis, random plasma glucose results greater than or equal to 200 mg/dL meet the criteria for diagnosis of diabetes. Reference: Standards of Medical Care in Diabetes 2016, [place] [employer]. Diabetes Care. 2016.39(Suppl 1). LAB BUN 9-24 mg/dL BUN High 26 LAB CRET 0.73-1.22 mg/dL Creatinine High 1.32 LAB NA 136-144 mmol/L Low Sodium 132 LAB K 3.7-5.1 mmol/L Potassium 4.0 LAB CL 97-105 mmol/L Low Chloride 94 LAB CO2 22-30 mmol/L CO2 25 LAB AGAP 9-18 mmol/L Anion Gap 13 LAB CA 8.5-10.2 mg/dL Calcium, Total 8.8 LAB GFRAA eGFR- Amer. >60 LAB GFRNAA . eGFR-All Other Races 56 Result Comment: eGFR (Estimated GFR) Units of measure: mL/min/1.73 meters squared eGFR is derived from the reexpressed MDRD Study equation using the following parameters: serum creatinine, age, gender and race. The creatinine assay has been calibrated to be traceable to IDMS. An eGFR <60 mL/min/1.73m2 for >3 months is consistent with chronic kidney disease. Refer to KDOQI guidelines for clinical interpretation. In patients with unstable renal function, e.g. those with acute kidney injury, the eGFR may not accurately reflect actual GFR. Performed By: #### PT, BMP #### [facility] [address] [id number] PROGRESS Observed: 06/02/2018 Status: COMPLETED Source: [place] 10:41 AM [facility] REPOSITORY O ID: [id number] Author: Demetrius Pacheco (Shraddha) Chuck Service: (none) Author Type: Physician Masonry Teacher Type: Progress Notes Filed: 06/02/2018 7:46 PM Note Text: Transitional Care Management Progress Note The patients TCM visit was performed within the 14 days of discharge. TCM Eligibility Documentation The following information was gathered during the initial Patient Outreach Encounter. No flowsheet data found. If no data exists please enter it manually. If data exists please delete date of discharge and date of initial contact seen below. Patient's Date of discharge: Date of initial coordinator contact after discharge: 05/19/18 Medication review completed Yes BP 95/69 Pulse 80 Temp 36.3 ?C (97.3 ?F) (Tympanic) Resp 12 Wt 88.5 kg (195 lb) BMI 32.45 kg/m? 57 year old male with c/o HOSPITAL/ER FOLLOW UP: Reason for visit: SOB, cough, pain in left lateral chest. Which facility: [facility] Date of visit: 05/17/18-05/19/18 Diagnosis: Acute hypoxic respiratory failure Bilateral pneumonia right upper lobe, left upper lobe, left lower lobe Acute on chronic kidney failure Hypertension Secondary diagnoses: History of coronary artery disease, ischemic cardiomyopathy, systolic chronic congestive heart failure, atrial fibrillation, history of AV chris ablation AICD implanted, mural thrombus, long-term anticoagulant use, status post PCI to LAD and diagonal in 2009 Obesi BPH COPD GERD JUAN DIEGO Pleural effusion chronic HLD Testing done: initial labwork demonstrated a CBC showing a white count of 7, BMP significant for low sodium at 131 and creatinine of 2.1. EKG initially showed paced rhythm with a ventricular rate of 88. Chest x-ray demonstrated chronic changes with bilateral upper lobe pneumonia and left lower lobe pneumonia. patient's INR is were elevated once she was started on antibiotics, Coumadin was held. Had high blood sugars which did come down over time with insulin coverage. Treatment given: Because of patient's hypoxia and respiratory distress placed and was placed on BiPAP in the emergency department with transition to oxygen saturations in the mid 90s. Patient was initially started on IV Levaquin.He was given oyhpmr-srl-syufc aerosol treatments, IV Solu-Medrol followed by oral prednisone. Patient's status gradually improved and was discharged in stable condition. Current symptoms: Feeling tired, still weak. Able to lay down now which he couldn't do before. Sleeping better. Cough persistent. Thinks needs to resume coumadin. Discharge instructions identify taking. Has rental coordinator at hospital: will check. Pharmacy says it was dispensed. Home blood sugars: [phone]. Patient tells me he stopped taking his Coumadin because it was causing elevation of his antibiotics. Discharge instructions indicate that he was to take Coumadin. Contact was made [facility] lpn care manager who identified that the patient told him he was not supposed to take his Coumadin so Coumadin was not placed in his pill containers. Patient is not able to manage his own medications so he has to have his life skills coordinator volunteer organize his pills. This order never came from a physician. Patient was previously monitored by Dr. Willingham for his pro times and Coumadin. Other medications were reconciled. Patient has completed Levaquin and prednisone from discharge instructions. HISTORIES FAMILY HISTORY Problem Relation Age of Onset - Cancer Mother lung - Heart Father - Hypertension Brother PAST MEDICAL HISTORY Diagnosis Date - Alcoholism in remission ([facility]) - Apical mural thrombus coumadin per Dr. Willingham - Atrial fibrillation ([facility]) anticoagulation per cardiology - Cardiac defibrillator in place 12/2010 Dr. Willingham - Carotid artery disease ([facility]) biltaer ICA 20-39% stenosis on 05/11/13 - CHF (congestive heart failure) ([facility]) - CVA (cerebral infarction) x 2 - Diabetes ([facility]) type 2 - Heart attack ([facility]) 2009 - History of coronary artery stent placement 05/29/09 LAD, Diag - Hyperlipidemia - Hypertension - Mini stroke ([facility]) 2009 - Neuropathy ([facility]) sees Dr. Arnold - Obstructive sleep apnea on CPAP uses cpap, sees Dr. Miles - PAD (peripheral artery disease) ([facility]) 2006 [facility] - Presence of combination internal cardiac defibrillator (ICD) and pacemaker - RBBB (right bundle branch block) - Valvular heart disease PAST SURGICAL HISTORY Procedure Laterality Date - ARTERY BYPASS 2006 bilateral legs at [facility], [place] - DRAIN FINGER ABSCESS COMPL Right 02/29/2016 I AND D right middle finger - PAST SURGICAL HISTORY OF 05/29/09 stent LAD, Diag - PAST SURGICAL HISTORY OF AV chris ablation, pacemaker Social History Marital status: Spouse name: Years of education: Number of children: 0 Social History Main Topics Smoking status: Former Smoker Packs/day: 0.00 Years: 0.00 Smokeless tobacco: Never Used Alcohol use: No Comment: recovered alcoholic (15years) Drug use: No Comment: 15 years ago Sexual activity: No ACTIVE PROBLEM LIST Cardiac Defibrillator in Place Hypertension Mini Stroke ([facility]) Sleep Apnea Hyperlipidemia Neuropathy ([facility]) Apical Mural Thrombus Cerebral Infarction ([facility]) PAD (peripheral artery disease) Alcoholism in Remission ([facility]) Valvular Heart Disease Carotid Stenosis Ischemic Cardiomyopathy Type 2 Diabetes Mellitus With Diabetic Neuropathy ([facility]) Renal Insufficiency Atrial Fibrillation ([facility]) Current Outpatient Prescriptions: albuterol HFA (PROAIR HFA) 90 mcg/actuation inhaler Inhale 2 Puffs as instructed. Disp: Rfl: predniSONE (DELTASONE) 20 mg tablet Take 40 mg by mouth once daily. Disp: Rfl: gabapentin (NEURONTIN) 300 mg capsule TAKE 1 CAPSULE THREE TIMES A DAY Disp: 84 capsule Rfl: 2 insulin lispro (HUMALOG KWIKPEN INSULIN) 100 unit/mL inpn Inject 16 Units subcutaneously w MEALS. Two or three times daily, depending on meals Disp: 5 Pen Rfl: 5 insulin glargine U-300 conc (TOUJEO SOLOSTAR U-300 INSULIN) 300 unit/mL (1.5 mL) inpn INJECT 70 UNITS SUBCUTANEOUSLY AT BEDTIME Disp: 27 mL Rfl: 4 furosemide (LASIX) 80 mg tablet Take 1 tablet by mouth twice daily. Disp: Rfl: bisacodyl EC (DULCOLAX, BISACODYL,) 5 mg EC tablet Take 1 tablet by mouth as directed. Take two (2) the first day of the prep, as explained on the instruction sheet provided. Disp: 2 tablet Rfl: 0 spironolactone (ALDACTONE) 25 mg tablet Take 25 mg by mouth once daily. Disp: Rfl: potassium chloride (K-ELIZABETH, KLOR-CON) 20 mEq packet Take 20 mEq by mouth twice daily. Disp: Rfl: lisinopril 2.5 mg tablet Take 2.5 mg by mouth once daily. Disp: Rfl: atorvastatin (LIPITOR) 40 mg tablet Take 1 tablet by mouth daily at bedtime. For cholesterol. Disp: Rfl: carvedilol (COREG) 6.25 mg tablet Take 0.5 tablets by mouth twice daily with meals. Hold antihypertensives for SBP <100. Hold betablockers for HR <60 Disp: 180 tablet Rfl: 3 aspirin, enteric coated (ASPIRIN, ENTERIC COATED) 81 mg EC tablet Take 1 tablet by mouth once daily. Disp: 30 tablet Rfl: 0 OTC PRODUCT DiabetAid capsaicin 0.025% cream, applied to feet daily at bedtime. Disp: Rfl: 0 clopidogrel 75 mg tablet Take 75 mg by mouth once daily. Disp: Rfl: famotidine 40 mg tablet Take 40 mg by mouth once daily. Disp: Rfl: nitroglycerin sublingual 0.4 mg SL tablet Dissolve 0.4 mg under the tongue every 5 minutes as needed. Disp: Rfl: Lancets lancets Test blood sugar(s) 2 daily. Dx: 250.00 Insulin: Yes Disp: 100 Each Rfl: 11 ULTICARE PEN NEEDLE 31 gauge x 5/16 ndle USE 1 NEEDLE PER DOSE 5 TIMES PER DAY Disp: 150 Each Rfl: 11 blood sugar diagnostic (ONETOUCH ULTRA TEST) test strip Test blood sugar(s) 3 times daily. Dx: Type 2 DM - Uncontrolled E11.65 Insulin: no Disp: 50 Strip Rfl: 11 warfarin (COUMADIN) 5 mg tablet Take 5 mg by mouth daily as directed. Disp: Rfl: COMPOUNDED PRESCRIPTION Support stockings: 20-30 mmhg, knee high with zipperDX: venous insufficiency Disp: 1 Each Rfl: 3 Insulin Syringe-Needle U-100 1 mL 29 syrg Use bid Disp: 100 Syringe Rfl: 11 Blood-Glucose Meter monitoring kit Pt testing twice daily and pt dx. dm2 Disp: 1 Each Rfl: 0 CPAP Disp: Rfl: No current facility-administered medications for this visit. DTAP,TDAP,TD(1 - Tdap) due on 1981 PROSTATE CANCER SCREENING DISCUSSION due on 03/30/2018 HBA1C due on 05/06/2018 LDL CHOLESTEROL due on 05/04/2018 EXAM: BP 95/69 Pulse 80 Temp 36.3 ?C (97.3 ?F) (Tympanic) Resp 12 Wt 88.5 kg (195 lb) BMI 32.45 kg/m? Pleasant Adult manin no acute distress. Alert and oriented all spheres. Normal affect and cognition. Speech normal. No deficits to learning or comprehension. speaking in full sentences. Patient has a slow mannerism, seems to have difficulty following thoughts although he is oriented. Skin warm, dry, pink to lips and nailbeds. Normal turgor. Respirations regular and unlabored. HEENT WNL. TM's clear. Nose and oropharynx free from injection or lesion. No cervical lymph nodes. Thyroid non-tender, no masses. No JVD with head of bed at 30?. Chest CTA. HRRR without murmur or gallop. No dullness. No tactile fremitus. Extrem: no clubbing, cyanosis, edema. Extremities are warm and pink with prompt capillary refill. Patient walks with a wide-based gait. ASSESSMENT/PLAN: 1. Pneumonia of right upper lobe due to infectious organism (HCC) - ICD9: 486, ICD10: J18.1 (primary diagnosis) Clinically patient appears improved. We'll proceed with x- ray for follow-up. - XR CHEST 2V FRONTAL/LAT 2. Essential hypertension - ICD9: 401.9, ICD10: I10 - good control - Continue current medication(s) - Recommended regular aerobic exercise. - Recommend home blood pressure monitoring, to bring results in on next visit - Goal of BP <130/80 3. Type 2 diabetes mellitus with diabetic neuropathy, unspecified whether terminal make up operator insulin use (HCC) - ICD9: 250.60, 357.2, ICD10: E11.40 Uncontrolled. Patient has difficulty with compliance. Was not able to really identify how to set his monitor. Dates were off. Unclear just how many blood sugars were actually from the last week. This was discussed with his lpn care manager. - Continue current medications - BASIC METABOLIC PNL 4. Renal insufficiency - ICD9: 593.9, ICD10: N28.9 Recheck labs. Patient had mild right renal injury which seems to improve with subsequent lab work. - BASIC METABOLIC PNL 5. Ischemic cardiomyopathy - ICD9: 414.8, ICD10: I25.5 Currently no chest pain or cardiac symptoms 6. Atrial fibrillation, unspecified type (HCC) - ICD9: 427.31, ICD10: I48.91 Currently heart rate is regular rate and rhythm. 7. Chronic anticoagulation - ICD9: V58.61, ICD10: Z79.01 He is to resume anticoagulation. It took a few hours identify whether problem arose with his lpn care manager at the hospital. Since patient was previously managed by Dr. Garibay reportedly orders to hold the Coumadin came from Dr. De Jesus have recommended that they contact him to manage and resume. - PROTHROMBIN TIME/PT I have reviewed the patient?s last hospital course including diagnostic testing performed during this hospitalization, their discharge medications, and my assessment and plan with the patient, no family members present at today?s visit. F/u in 6 weeks Dieter Woods PA-C PROGRESS Observed: 06/02/2018 Status: COMPLETED Source: [place] 10:27 AM [facility] REPOSITORY [facility] ID: [id number] Author: Tory Craft LPN Service: (none) Author Type: (none) Type: Progress Notes Filed: 06/02/2018 7:46 PM Note Text: TRANSITION CARE MANAGEMENT (TCM) INITIAL CONTACT Equipment Lead Outreach ? Provider Action/FYI: States that feeling slightly better. Has ATB, Pred, and inhaler to use. Dakotah says he is checking his glucose and taking his insulin. Sugar was up at the hospital but says it is getting better. ? ? Initial contact with patient post discharge, spoke to patient. Patient identified by name and . ? TRANSITION CARE MANAGEMENT INITIAL OUTREACH DOCUMENTATION: No flowsheet data found. ? SUMMARY: -Pt discharged from [facility] on 05/19/18. -Admitted for: shortness of breath ? Do you have a hospital follow up appointment with your PCP? Appointment on 05/31/18 with Chuck. Yes. Remind patient of appointment date, time, and location. If not within 14 calendar days of discharge - please reschedule accordingly. ? MEDICATIONS: Many patients have questions or concerns about their medications once they are home. Were you prescribed any new medications? Yes ? Were you told to hold any medications? No Were any of your medications discontinued? No ? Do you have any questions about getting or taking your medications? No ? Your discharge instructions/After visit Summary (AVS) are important in guiding you through the recovery process. Is there anything I might help you understand? No ? Do you have all the necessary equipment and supplies at home? Yes ? Medical records from recent hospitalization: Placed for provider to review CNOV Observed: 06/02/2018 Status: COMPLETED Source: [place] 10:00 AM [facility] REPOSITORY Office Visit (FAMPWS) DAKOTAH PRATT JR ([id number]) 1960 M Date Time Provider Department 06/02/18 10:00 AM Demetrius WOODS (SHRADDHA) FAMPWS During your visit today, we recorded the following information about you: Temperature Pulse Respiration Blood pressure 97.3 degrees 80/minute 12/minute 95/69 Weight 88.5 kg Tory Craft LPN 06/02/2018 7:46 PM Signed TRANSITION CARE MANAGEMENT (TCM) INITIAL CONTACT Equipment Lead Outreach ? Provider Action/FYI: States that feeling slightly better. Has ATB, Pred, and inhaler to use. Dakotah says he is checking his glucose and taking his insulin. Sugar was up at the hospital but says it is getting better. ? ? Initial contact with patient post discharge, spoke to patient. Patient identified by name and . ? TRANSITION CARE MANAGEMENT INITIAL OUTREACH DOCUMENTATION: No flowsheet data found. ? SUMMARY: -Pt discharged from [facility] on 05/19/18. -Admitted for: shortness of breath ? Do you have a hospital follow up appointment with your PCP? Appointment on 05/31/18 with Chuck. Yes. Remind patient of appointment date, time, and location. If not within 14 calendar days of discharge - please reschedule accordingly. ? MEDICATIONS: Many patients have questions or concerns about their medications once they are home. Were you prescribed any new medications? Yes ? Were you told to hold any medications? No Were any of your medications discontinued? No ? Do you have any questions about getting or taking your medications? No ? Your discharge instructions/After visit Summary (AVS) are important in guiding you through the recovery process. Is there anything I might help you understand? No ? Do you have all the necessary equipment and supplies at home? Yes ? Medical records from recent hospitalization: Placed for provider to review Demetrius Woods PA-C 06/02/2018 7:46 PM Signed Transitional Care Management Progress Note The patients TCM visit was performed within the 14 days of discharge. TCM Eligibility Documentation The following information was gathered during the initial Patient Outreach Encounter. No flowsheet data found. If no data exists please enter it manually. If data exists please delete date of discharge and date of initial contact seen below. Patient's Date of discharge: Date of initial coordinator contact after discharge: 05/19/18 Medication review completed Yes BP 95/69 Pulse 80 Temp 36.3 ?C (97.3 ?F) (Tympanic) Resp 12 Wt 88.5 kg (195 lb) BMI 32.45 kg/m? 57 year old male with c/o HOSPITAL/ER FOLLOW UP: Reason for visit: SOB, cough, pain in left lateral chest. Which facility: [facility] Date of visit: 05/17/18-05/19/18 Diagnosis: Acute hypoxic respiratory failure Bilateral pneumonia right upper lobe, left upper lobe, left lower lobe Acute on chronic kidney failure Hypertension Secondary diagnoses: History of coronary artery disease, ischemic cardiomyopathy, systolic chronic congestive heart failure, atrial fibrillation, history of AV chris ablation AICD implanted, mural thrombus, long-term anticoagulant use, status post PCI to LAD and diagonal in 2009 Obesi BPH COPD GERD JUAN DIEGO Pleural effusion chronic HLD Testing done: initial labwork demonstrated a CBC showing a white count of 7, BMP significant for low sodium at 131 and creatinine of 2.1. EKG initially showed paced rhythm with a ventricular rate of 88. Chest x-ray demonstrated chronic changes with bilateral upper lobe pneumonia and left lower lobe pneumonia. patient's INR is were elevated once she was started on antibiotics, Coumadin was held. Had high blood sugars which did come down over time with insulin coverage. Treatment given: Because of patient's hypoxia and respiratory distress placed and was placed on BiPAP in the emergency department with transition to oxygen saturations in the mid 90s. Patient was initially started on IV Levaquin.He was given [id number] aerosol treatments, IV Solu-Medrol followed by oral prednisone. Patient's status gradually improved and was discharged in stable condition. Current symptoms: Feeling tired, still weak. Able to lay down now which he couldn't do before. Sleeping better. Cough persistent. Thinks needs to resume coumadin. Discharge instructions identify taking. Has rental coordinator at hospital: will check. Pharmacy says it was dispensed. Home blood sugars: [phone]. Patient tells me he stopped taking his Coumadin because it was causing elevation of his antibiotics. Discharge instructions indicate that he was to take Coumadin. Contact was made [facility] lpn care manager who identified that the patient told him he was not supposed to take his Coumadin so Coumadin was not placed in his pill containers. Patient is not able to manage his own medications so he has to have his life skills coordinator volunteer organize his pills. This order never came from a physician. Patient was previously monitored by Dr. Willingham for his pro times and Coumadin. Other medications were reconciled. Patient has completed Levaquin and prednisone from discharge instructions. HISTORIES FAMILY HISTORY Problem Relation Age of Onset - Cancer Mother lung - Heart Father - Hypertension Brother PAST MEDICAL HISTORY Diagnosis Date - Alcoholism in remission ([facility]) - Apical mural thrombus coumadin per Dr. Willingham - Atrial fibrillation ([facility]) anticoagulation per cardiology - Cardiac defibrillator in place 12/2010 Dr. Willingham - Carotid artery disease ([facility]) biltaer ICA 20-39% stenosis on 05/11/13 - CHF (congestive heart failure) ([facility]) - CVA (cerebral infarction) x 2 - Diabetes ([facility]) type 2 - Heart attack ([facility]) 2009 - History of coronary artery stent placement 05/29/09 LAD, Diag - Hyperlipidemia - Hypertension - Mini stroke ([facility]) 2009 - Neuropathy ([facility]) sees Dr. Arnold - Obstructive sleep apnea on CPAP uses cpap, sees Dr. Miles - PAD (peripheral artery disease) ([facility]) 2006 [facility] - Presence of combination internal cardiac defibrillator (ICD) and pacemaker - RBBB (right bundle branch block) - Valvular heart disease PAST SURGICAL HISTORY Procedure Laterality Date - ARTERY BYPASS 2006 bilateral legs at [facility], [place] - DRAIN FINGER ABSCESS COMPL Right 02/29/2016 I AND D right middle finger - PAST SURGICAL HISTORY OF 05/29/09 stent LAD, Diag - PAST SURGICAL HISTORY OF AV chris ablation, pacemaker Social History Marital status: Spouse name: Years of education: Number of children: 0 Social History Main Topics Smoking status: Former Smoker Packs/day: 0.00 Years: 0.00 Smokeless tobacco: Never Used Alcohol use: No Comment: recovered alcoholic (15years) Drug use: No Comment: 15 years ago Sexual activity: No ACTIVE PROBLEM LIST Cardiac Defibrillator in Place Hypertension Mini Stroke ([facility]) Sleep Apnea Hyperlipidemia Neuropathy ([facility]) Apical Mural Thrombus Cerebral Infarction ([facility]) PAD (peripheral artery disease) Alcoholism in Remission ([facility]) Valvular Heart Disease Carotid Stenosis Ischemic Cardiomyopathy Type 2 Diabetes Mellitus With Diabetic Neuropathy ([facility]) Renal Insufficiency Atrial Fibrillation ([facility]) Current Outpatient Prescriptions: albuterol HFA (PROAIR HFA) 90 mcg/actuation inhaler Inhale 2 Puffs as instructed. Disp: Rfl: predniSONE (DELTASONE) 20 mg tablet Take 40 mg by mouth once daily. Disp: Rfl: gabapentin (NEURONTIN) 300 mg capsule TAKE 1 CAPSULE THREE TIMES A DAY Disp: 84 capsule Rfl: 2 insulin lispro (HUMALOG KWIKPEN INSULIN) 100 unit/mL inpn Inject 16 Units subcutaneously w MEALS. Two or three times daily, depending on meals Disp: 5 Pen Rfl: 5 insulin glargine U-300 conc (TOUJEO SOLOSTAR U-300 INSULIN) 300 unit/mL (1.5 mL) inpn INJECT 70 UNITS SUBCUTANEOUSLY AT BEDTIME Disp: 27 mL Rfl: 4 furosemide (LASIX) 80 mg tablet Take 1 tablet by mouth twice daily. Disp: Rfl: bisacodyl EC (DULCOLAX, BISACODYL,) 5 mg EC tablet Take 1 tablet by mouth as directed. Take two (2) the first day of the prep, as explained on the instruction sheet provided. Disp: 2 tablet Rfl: 0 spironolactone (ALDACTONE) 25 mg tablet Take 25 mg by mouth once daily. Disp: Rfl: potassium chloride (K-ELIZABETH, KLOR-CON) 20 mEq packet Take 20 mEq by mouth twice daily. Disp: Rfl: lisinopril 2.5 mg tablet Take 2.5 mg by mouth once daily. Disp: Rfl: atorvastatin (LIPITOR) 40 mg tablet Take 1 tablet by mouth daily at bedtime. For cholesterol. Disp: Rfl: carvedilol (COREG) 6.25 mg tablet Take 0.5 tablets by mouth twice daily with meals. Hold antihypertensives for SBP <100. Hold betablockers for HR <60 Disp: 180 tablet Rfl: 3 aspirin, enteric coated (ASPIRIN, ENTERIC COATED) 81 mg EC tablet Take 1 tablet by mouth once daily. Disp: 30 tablet Rfl: 0 OTC PRODUCT DiabetAid capsaicin 0.025% cream, applied to feet daily at bedtime. Disp: Rfl: 0 clopidogrel 75 mg tablet Take 75 mg by mouth once daily. Disp: Rfl: famotidine 40 mg tablet Take 40 mg by mouth once daily. Disp: Rfl: nitroglycerin sublingual 0.4 mg SL tablet Dissolve 0.4 mg under the tongue every 5 minutes as needed. Disp: Rfl: Lancets lancets Test blood sugar(s) 2 daily. Dx: 250.00 Insulin: Yes Disp: 100 Each Rfl: 11 ULTICARE PEN NEEDLE 31 gauge x 5/16 ndle USE 1 NEEDLE PER DOSE 5 TIMES PER DAY Disp: 150 Each Rfl: 11 blood sugar diagnostic (ONETOUCH ULTRA TEST) test strip Test blood sugar(s) 3 times daily. Dx: Type 2 DM - Uncontrolled E11.65 Insulin: no Disp: 50 Strip Rfl: 11 warfarin (COUMADIN) 5 mg tablet Take 5 mg by mouth daily as directed. Disp: Rfl: COMPOUNDED PRESCRIPTION Support stockings: 20-30 mmhg, knee high with zipperDX: venous insufficiency Disp: 1 Each Rfl: 3 Insulin Syringe-Needle U-100 1 mL 29 syrg Use bid Disp: 100 Syringe Rfl: 11 Blood-Glucose Meter monitoring kit Pt testing twice daily and pt dx. dm2 Disp: 1 Each Rfl: 0 CPAP Disp: Rfl: No current facility-administered medications for this visit. DTAP,TDAP,TD(1 - Tdap) due on 1981 PROSTATE CANCER SCREENING DISCUSSION due on 03/30/2018 HBA1C due on 05/06/2018 LDL CHOLESTEROL due on 05/04/2018 EXAM: BP 95/69 Pulse 80 Temp 36.3 ?C (97.3 ?F) (Tympanic) Resp 12 Wt 88.5 kg (195 lb) BMI 32.45 kg/m? Pleasant Adult manin no acute distress. Alert and oriented all spheres. Normal affect and cognition. Speech normal. No deficits to learning or comprehension. speaking in full sentences. Patient has a slow mannerism, seems to have difficulty following thoughts although he is oriented. Skin warm, dry, pink to lips and nailbeds. Normal turgor. Respirations regular and unlabored. HEENT WNL. TM's clear. Nose and oropharynx free from injection or lesion. No cervical lymph nodes. Thyroid non-tender, no masses. No JVD with head of bed at 30?. Chest CTA. HRRR without murmur or gallop. No dullness. No tactile fremitus. Extrem: no clubbing, cyanosis, edema. Extremities are warm and pink with prompt capillary refill. Patient walks with a wide-based gait. ASSESSMENT/PLAN: 1. Pneumonia of right upper lobe due to infectious organism (HCC) - ICD9: 486, ICD10: J18.1 (primary diagnosis) Clinically patient appears improved. We'll proceed with x- ray for follow-up. - XR CHEST 2V FRONTAL/LAT 2. Essential hypertension - ICD9: 401.9, ICD10: I10 - good control - Continue current medication(s) - Recommended regular aerobic exercise. - Recommend home blood pressure monitoring, to bring results in on next visit - Goal of BP <130/80 3. Type 2 diabetes mellitus with diabetic neuropathy, unspecified whether terminal make up operator insulin use (HCC) - ICD9: 250.60, 357.2, ICD10: E11.40 Uncontrolled. Patient has difficulty with compliance. Was not able to really identify how to set his monitor. Dates were off. Unclear just how many blood sugars were actually from the last week. This was discussed with his lpn care manager. - Continue current medications - BASIC METABOLIC PNL 4. Renal insufficiency - ICD9: 593.9, ICD10: N28.9 Recheck labs. Patient had mild right renal injury which seems to improve with subsequent lab work. - BASIC METABOLIC PNL 5. Ischemic cardiomyopathy - ICD9: 414.8, ICD10: I25.5 Currently no chest pain or cardiac symptoms 6. Atrial fibrillation, unspecified type (HCC) - ICD9: 427.31, ICD10: I48.91 Currently heart rate is regular rate and rhythm. 7. Chronic anticoagulation - ICD9: V58.61, ICD10: Z79.01 He is to resume anticoagulation. It took a few hours identify whether problem arose with his lpn care manager at the hospital. Since patient was previously managed by Dr. Garibay reportedly orders to hold the Coumadin came from Dr. De Jesus have recommended that they contact him to manage and resume. - PROTHROMBIN TIME/PT I have reviewed the patient?s last hospital course including diagnostic testing performed during this hospitalization, their discharge medications, and my assessment and plan with the patient, no family members present at today?s visit. F/u in 6 weeks Dieter Woods PA-C Referring Provider: SELF [[id number]] Allergies As of Date: 06/02/2018 Noted Allergy Reaction PENICILLINS 08/15/2013 16 - Unknown TRAMADOL 03/03/2016 2 - Rash 9 - Itching Date Reviewed: 06/02/2018 Reviewed by: Tory Craft LPN - Fully Assessed Reason for Visit: Hospital Follow Up [177] Cmt: [facility] 05/17/18 for COPD flare up Reason For Visit History Recorded Primary Visit Diagnosis:Pneumonia of right upper lobe due to infectious organism (HCC) [J18.1] Other Visit Diagnoses:Essential hypertension [I10] Type 2 diabetes mellitus with diabetic neuropathy, unspecified whether terminal make up operator insulin use (HCC) [E11.40] Renal insufficiency [N28.9] Ischemic cardiomyopathy [I25.5] Atrial fibrillation, unspecified type (HCC) [I48.91] Chronic anticoagulation [Z79.01] Order(s):XR CHEST 2V FRONTAL/LAT [[id number]] Order #: [id number] FUTURE BASIC METABOLIC PNL [SQBMP] Order #: [id number] FUTURE PROTHROMBIN TIME/PT [SQPT] Order #: [id number] FUTURE Prescriptions as of 06/02/2018 Sig: ALBUTEROL SULFATE HFA 90 MCG/* Inhale 2 Puffs as instructed. PREDNISONE 20 MG TABLET Take 40 mg by mouth once eder* GABAPENTIN 300 MG CAPSULE TAKE 1 CAPSULE THREE TIMES A * INSULIN LISPRO (U-100) 100 UN* Inject 16 Units subcutaneousl* INSULIN GLARGINE (U-300) CONC* INJECT 70 UNITS SUBCUTANEOUSL* FUROSEMIDE 80 MG TABLET Take 1 tablet by mouth twice * BISACODYL 5 MG TABLET,DELAYED* Take 1 tablet by mouth as dir* SPIRONOLACTONE 25 MG TABLET Take 25 mg by mouth once eder* POTASSIUM CHLORIDE 20 MEQ ORA* Take 20 mEq by mouth twice da* LISINOPRIL 2.5 MG TABLET Take 2.5 mg by mouth once corine* ATORVASTATIN 40 MG TABLET Take 1 tablet by mouth daily * CARVEDILOL 6.25 MG TABLET Take 0.5 tablets by mouth twi* ASPIRIN 81 MG TABLET,DELAYED * Take 1 tablet by mouth once d* OTC PRODUCT DiabetAid capsaicin 0.025% cr* CLOPIDOGREL 75 MG TABLET Take 75 mg by mouth once eder* FAMOTIDINE 40 MG TABLET Take 40 mg by mouth once eder* NITROGLYCERIN 0.4 MG SUBLINGU* Dissolve 0.4 mg under the ton* LANCETS Test blood sugar(s) 2 daily. * ULTICARE PEN NEEDLE 31 GAUGE * USE 1 NEEDLE PER DOSE 5 TIMES* BLOOD SUGAR DIAGNOSTIC STRIPS Test blood sugar(s) 3 times d* WARFARIN 5 MG TABLET Take 5 mg by mouth daily as d* COMPOUNDED PRESCRIPTION Support stockings: 20- 30 mmhg* INSULIN SYRINGE U-100 WITH NE* Use bid BLOOD-GLUCOSE METER KIT Pt testing twice daily and pt* CPAP Problem List As Of Date 06/02/2018 Noted Resolved Diabetes [E11.9] 04/12/2015 More... Cardiac defibrillator in place [Z95.810] INVALID FOR* More... Hypertension [I10] More... Mini stroke [I63.9] Heart attack [I21.9] 04/28/2017 Sleep apnea [G47.30] More... Hyperlipidemia [E78.5] Neuropathy [G62.9] Apical mural thrombus [I51.3] More... Cerebral infarction (HCC) [I63.9] More... PAD (peripheral artery disease) [I73.9] More... 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 Urinary retention [R33.9] INVALID FOR*04/28/2017 More... SUMMARY [V999.95] INVALID FOR*10/02/2016 More... Diabetes mellitus with neuropathy (HCC) [E11.40]INVALID FOR*04/12/2015 Type 2 diabetes mellitus with diabetic neuropat*INVALID FOR* Renal insufficiency [N28.9] INVALID FOR* Atrial fibrillation (HCC) [I48.91] INVALID FOR* Medications Discontinued During This Encounter magnesium citrate solution 148 * 0 02/17/2017 06/02/2018 Route: ORAL Sig: Take 148 mL by mouth as directed. Take one bottle the first day of the prep, as explained on the instruction sheet provided to you. Disc: Reason for discontinue is not on file. peg 3350-electrolytes (COLYTE) 240-2* 1 Co* 0 04/08/2016 06/02/2018 Sig: Take 4000 ml as directed. Follow written instructions from the doctor's office. Disc: Reason for discontinue is not on file. Disposition: Return in about 6 weeks (around 07/14/2018). Follow-up and Disposition History Recorded Encounter Status:Closed by Demetrius WOODS PA-C on 06/02/18 DISCHARGE INSTRUCTION Observed: 05/19/2018 Status: F Source: [place] 8:51 AM [facility] Medical Records Department [address] [place] [id number] Instructions for Home/Discharge Instructions 05/19/18 0817 MR#: [id number] Acct: [id number] Name: DAKOTAH PRATT Rep #: [id number] : 1960 57 From: Herminio Whitaker MD PCP: Allen Batres MD Status: ADM IN ADDENDUM by Herminio Whitaker MD on 05/19/18 at 0851 Albuterol 1-2 puff q4 hr PRN 05/19/18 0851 Date Herminio Whitaker MD cc: Allen Batres MD * Signed You will use the following diet at home:: Calorie/Carbohydrate Controlled (specify 1200, 1400, etc) Your food should be the consistency of: Regular Your liquids should be the consistency of: Regular/Thin Discharge Activity: Return to Normal Activity Call your doctor if you observe: Fever of 101 or Higher, Shortness of breath, Dizziness, Chest pain Pending Tests on Discharge: Have an INR drawn on 05/20. Because you are on an antibiotic, this can interact with coumadin and make your INR elevated. Allergies/Adverse Reactions: Allergies tramadol Allergy (Verified 09/06/17 21:37) Hives Penicillins Adverse Reaction (Verified 09/06/17 21:37) Nausea Medications to take at Discharge Insulin Glargine,Hum.rec.anlog [Toulexo Solostar] 70 unit SQ QHS 08/16/16 gabapentin 300 mg capsule 300 mg PO TID cap 06/05/17 insulin aspart U- 100 100 unit/mL subcutaneous pen 16 unit SC TIDCM ml 06/08/17 furosemide 80 mg tablet 80 mg PO BID #60 tab 08/11/17 potassium chloride ER 20 mEq tablet,extended release(part/cryst) 20 meq PO DAILY #30 tab 09/02/17 Atorvastatin Calcium [Lipitor] 40 mg PO QHS 09/07/17 Carvedilol [Coreg] 3.125 mg PO BID 09/07/17 Aspirin [Aspirin EC] 81 mg PO DAILY 05/12/18 Lisinopril [Zestril] 2.5 mg PO DAILY 05/12/18 Spironolactone 25 mg PO DAILY 05/12/18 clopidogrel 75 mg tablet 75 mg PO DAILY #30 tab 05/13/18 famotidine 40 mg tablet 40 mg PO DAILY #30 tab 05/13/18 Prednisone [Deltasone] 40 mg PO DAILY #20 tablet 05/19/18 Warfarin Sodium 2.5 mg PO SUSA #0 05/19/18 Warfarin Sodium 5 mg PO MOTUWETHFR #30 tab 05/19/18 levoFLOXacin tablet [Levaquin tablet] 750 mg PO QODAY #4 tablet 05/19/18 The following prescriptions were given: levoFLOXacin tablet [Levaquin tablet] 750 mg PO QODAY #4 tablet Prednisone [Deltasone] 40 mg PO DAILY #20 tablet Primary Care Physician: Allen Batres MD [Primary Care Provider] - Please follow up with your Primary Care Physician in: 3-5 days Test Results: Test results from this visit will be discussed in further detail at your follow-up appointment, if applicable. 05/19/18822 <Electronically signed by Herminio Whitaker MD> Date Herminio Whitaker MD CC: Allen Batres MD Signed DISCHARGE SUMMARY Observed: 05/19/2018 Status: F Source: [place] 8:51 AM [facility] REPOSITORY [facility] Medical Records Department [address] [place] [address] Discharge Summary 05/19/18822 MR#: [id number] Acct: [id number] Name: DAKOTAH PRATT Rep #: [id number] : 1960 57 From: Herminio Whitaker MD PCP: Allen Batres MD Status: ADM IN Location: [place] [id number] Discharge Date and Diagnosis Date of Admission: 05/17/18 Date of Discharge: 05/19/18 - Secondary Discharge Diagnosis Chronic Problems (Last Reviewed 02/04/18 @ 16:06 by Keven Willingham MD) Mural thrombus of 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 apex (Chronic) 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) ICD (implantable cardioverter-defibrillator), biventricular, in situ (Chronic) Atherosclerosis of hamilton coronary artery of hamilton heart without angina pectoris (Chronic) PCI to LAD AND diagonal in 2009; Diabetes mellitus (Chronic) Obesity (Chronic) Hypertension (Chronic) Benign prostatic hypertrophy (Chronic) COPD (chronic obstructive pulmonary disease) (Chronic) GERD (gastroesophageal reflux disease) (Chronic) JUAN DIEGO (obstructive sleep apnea) (Chronic) AICD (automatic cardioverter/defibrillator) present (Chronic) 12/2009 implant; PAD (peripheral artery disease) (Chronic) Pleural effusion, left (Chronic) S/P PTCA (percutaneous transluminal coronary angioplasty) (Chronic) HLD (hyperlipidemia) (Chronic) Ischemic cardiomyopathy (Chronic) Systolic CHF, chronic (Chronic) Atrial fibrillation (Chronic) AV Node RFA 07/11/2015 H/O atrioventricular chris ablation (Chronic 07/11/15) Hospital Course and Treatment Imaging Results: CXR: IMPRESSION: Possible developing right lower lobe infiltrate Operations: None Procedures: None Summary of Care Provided: Per HPI: The patient is a 57 year old M with an extensive past medical history as listed below. He was admitted through the ED on 05/17/2018 with a complaint of worsening shortness of breath and a productive cough for the past 3 days. He was recently seen in the ED for similar symptoms and treated with a Z-Lion for bronchitis. However symptoms worsen he still had worsening shortness of breath with a cough productive of greenish sputum. Cough actually worsened and today he said he simply felt like he could not breathe anymore. He did not have any fever or chills and had pleuritic chest pain with coughing but no hemoptysis. He called the EMS and had to be put on BiPAP on account of hypoxia. CBC showed white cell count of 7 and BMP was significant for sodium of 131 as well as creatinine of 2.1. EKG showed paced rhythm with rate at 88 and chest x-ray showed chronic changes and possible right lower lobe infiltrate. In the ED, they try to wean him off the BiPAP but he became more hypoxic and had to be put on BiPAP again. He was eventually transitioned to oxygen with saturation in the mid 90s but could not tolerate being off of oxygen. He is been admitted to be managed for respiratory insufficiency due to community-acquired pneumonia. He was started on IV Levaquin. General: Alert, Oriented x3, Cooperative, No apparent distress HEENT: Atraumatic, EOMI, Normocephalic Oral: Moist Mucosa Neck: Supple, No JVD Lungs: CTAB, Normal air movement, No rhonchi, No Wheezes Cardiovascular: Regular rate, Regular Rhythm, Normal S1, Normal S2, No murmurs Abdomen: Soft, Non Tender, Non-Distended, No Hepato-splenomegaly Extremities: No edema, Capillary Refill Less than 3 Seconds Skin: No rashes, No breakdown Neurological: Neuro grossly intact, Sensory exam intact to light touch and pain Psych/Mental Status: Normal Affect, Appropriate Hospital Course: 1. Acute hypoxic respiratory failure secondary to bronchitis and possible pneumonia - Presented from home with acute hypoxia requiring BiPAP. He had a chest x-ray on admission which demonstrated a possibly early right lower lobe infiltrate. He was started on Levaquin every other day given his creatinine clearance is less than 50. He was also started on Solu-Medrol 40 mg every 8 hours, and has since improved and was yesterday decreased to twice daily dosing for the steroids partly because his blood sugars were becoming uncontrolled into the 4-500 range. He currently feels much better and would like to go home. We will discharge him on 8 more days of Levaquin which is 4 pills every other day, and prednisone 40 mg daily for 10 days. We will also provide an albuterol inhaler until he can follow- up with his PCP. 2. A. fib/hypertension/CAD/status post pacemaker/supratherapeutic INR/chronic systolic CHF - He is on Coumadin for his A. fib, and he is generally very well controlled. However since he was started on Levaquin, his INR has been elevated to between 4 and 5. On the day of discharge his INR is 3.8. And it was discussed with him that he needs to hold his Coumadin until he has a repeat INR this week and is told by his PCP to resume Coumadin. I did discuss with him that the INR is elevated because of the antibiotic that he is currently on and that once he is finished with his antibiotic his INR should return to baseline. 3. DM 2 - He is generally fairly controlled at home with his regimen of Lantus 70 units and NovoLog 16 units 3 times a day with meals, however because of the steroids he was given for his bronchitis his blood sugars had been fairly elevated. He was added a sliding scale insulin while here in the hospital to help control his elevated blood sugars, I feel that now that he will be down to once a day dosing of his steroids is that of 3 times a day his blood sugar should be slightly elevated but not out of control while at home. And once his steroids are completed his blood sugars should return to baseline. 4. His other diagnoses were evaluated and his medications were continued were appropriate - Physical Exam Vital Signs Temp Pulse Resp BP Pulse Ox 97.9 F 80 16 92/55 L 93 05/19/18 02:00 05/19/18 07:27 05/19/18 02:00 05/19/18 02:00 05/19/18 02:00 Oxygen Flow Rate (L/min) 2 Oxygen Delivery Method Room Air Weight: 201 lb 15.095 oz Body Mass Index (BMI) 34.3 Finger Stick Blood Glucose 303 Intake and Output for Last 24 Hours Intake Total 2602 / 2602 1609.4 / 1609.4 240 / 240 Output Total 700 / 700 1450 / 1450 1100 / 1100 Balance 1902 / 1902 159.4 / 159.4 -860 / -860 Microbiology Past 72 Hours 05/17/18 08:30 Gram Stain - Final Laboratory Tests Past 24 Hrs PT 37.8 H INR 3.8 H* POC Glucose POC Glucose 263 H 308 H 316 H POC Glucose 350 H 469 H* Discharge Activity: Return to Normal Activity Call your doctor if you observe: Fever of 101 or Higher, Shortness of breath, Dizziness, Chest pain Home Medications: Medications to take at Discharge Insulin Glargine,Hum.rec.anlog [Nilsa Dang] 70 unit SQ QHS 08/16/16 gabapentin 300 mg capsule 300 mg PO TID cap 06/05/17 insulin aspart U- 100 100 unit/mL subcutaneous pen 16 unit SC TIDCM ml 06/08/17 furosemide 80 mg tablet 80 mg PO BID #60 tab 08/11/17 potassium chloride ER 20 mEq tablet,extended release(part/cryst) 20 meq PO DAILY #30 tab 09/02/17 Atorvastatin Calcium [Lipitor] 40 mg PO QHS 09/07/17 Carvedilol [Coreg] 3.125 mg PO BID 09/07/17 Aspirin [Aspirin EC] 81 mg PO DAILY 05/12/18 Lisinopril [Zestril] 2.5 mg PO DAILY 05/12/18 Spironolactone 25 mg PO DAILY 05/12/18 clopidogrel 75 mg tablet 75 mg PO DAILY #30 tab 05/13/18 famotidine 40 mg tablet 40 mg PO DAILY #30 tab 05/13/18 Albuterol IH (ProAir) [Proair Hfa] 1 - 2 puff INHALATION Q4H PRN PRN #1 inhaler 05/19/18 Prednisone [Deltasone] 40 mg PO DAILY #20 tablet 05/19/18 Warfarin Sodium 2.5 mg PO SUSA #0 05/19/18 Warfarin Sodium 5 mg PO MOTUWETHFR #30 tab 05/19/18 levoFLOXacin tablet [Levaquin tablet] 750 mg PO QODAY #4 tablet 05/19/18 Following Prescrptions Were Given to Patient: Albuterol IH (ProAir) [Proair Hfa] 1 - 2 puff INHALATION Q4H PRN PRN #1 inhaler PRN Reason: Sob AND /Or Wheezing levoFLOXacin tablet [Levaquin tablet] 750 mg PO QODAY #4 tablet Prednisone [Deltasone] 40 mg PO DAILY #20 tablet Primary Care Physician: Allen Batres MD [Primary Care Provider] - Please follow up with your Primary Care Physician in: 3-5 days Disposition: Home Minutes spent on discharge:: 35 Patient Condition:: Good Medical Necessity - Tobacco Use Smoking Status: Current every day smoker Meaningful Use Info Meaningful Use Diagnoses (Choose all that apply): None applicable Code Visit Inpatient E AND M: 70959 Disch Hosp 05/19/18850 <Electronically signed by Herminio Whitaker MD> Date Herminio Whitaker MD Cosigner Signature (if applicable): Date CC: Herminio Whitaker MD; Allen Batres MD Signed BEDSIDE GLUCOSE Collected: 05/19/2018 Status: F Source: [place] 6:44 AM [facility] REPOSITORY TYPE CODE TESTS RESULT OUT OF REFERENCE UNITS RANGE LAB L501.080 70-110 mg/dL High BEDSIDE GLU 263 Result Comment: MANAGEMENT OF PATIENT CARE PER NURSING PROTOCOL Performed By: #### L501.080 #### [facility] Point of Care [address] [place] [address] PROTHROMBIN TIME W/INR Collected: 05/19/2018 Status: F Source: [place] 6:05 AM [facility] REPOSITORY TYPE CODE TESTS RESULT OUT OF REFERENCE UNITS RANGE LAB L300.4150 11.7-14.9 SECONDS High PROTIME 37.8 LAB L300.4200 High alert INR 3.8 Result Comment: CRITICAL VALUE VERIFIED. CALLED TO KELTON IN U 05/19/18812 Vero Bunch. RESULTS READ BACK BY SAME . Performed By: #### L300.3900 #### [facility] [address] [place], [address] BEDSIDE GLUCOSE Collected: 05/18/2018 Status: F Source: [place] 9:10 PM [facility] REPOSITORY TYPE CODE TESTS RESULT OUT OF REFERENCE UNITS RANGE LAB L501.080 70-110 mg/dL High BEDSIDE GLU 308 Result Comment: MANAGEMENT OF PATIENT CARE PER NURSING PROTOCOL Performed By: #### L501.080 #### [facility] Point of Care [address] [place] [address] BEDSIDE GLUCOSE Collected: 05/18/2018 Status: F Source: [place] 5:06 PM [facility] REPOSITORY TYPE CODE TESTS RESULT OUT OF REFERENCE UNITS RANGE LAB L501.080 70-110 mg/dL High BEDSIDE GLU 316 Result Comment: MANAGEMENT OF PATIENT CARE PER NURSING PROTOCOL Performed By: #### L501.080 #### [facility] Point of Care [address] [place] [address] BEDSIDE GLUCOSE Collected: 05/18/2018 Status: F Source: [place] 3:23 PM [facility] REPOSITORY TYPE CODE TESTS RESULT OUT OF REFERENCE UNITS RANGE LAB L501.080 70-110 mg/dL High BEDSIDE GLU 350 Result Comment: MANAGEMENT OF PATIENT CARE PER NURSING PROTOCOL Performed By: #### L501.080 #### [facility] Point of Care [address] [place] [address] BEDSIDE GLUCOSE Collected: 05/18/2018 Status: F Source: [place] 11:59 AM [facility] REPOSITORY TYPE CODE TESTS RESULT OUT OF REFERENCE UNITS RANGE LAB L501.080 70-110 mg/dL High alert BEDSIDE GLU 469 Result Comment: Dr Orders Followed MANAGEMENT OF PATIENT CARE PER NURSING PROTOCOL Performed By: #### L501.080 #### [facility] Point of Care [address] [place] [address] BEDSIDE GLUCOSE Collected: 05/18/2018 Status: F Source: [place] 6:51 AM [facility] REPOSITORY TYPE CODE TESTS RESULT OUT OF REFERENCE UNITS RANGE LAB L501.080 70-110 mg/dL High BEDSIDE GLU 444 Result Comment: MANAGEMENT OF PATIENT CARE PER NURSING PROTOCOL Performed By: #### L501.080 #### [facility] Point of Care [address] [place], [place] [address] BASIC METABOLIC Collected: 05/18/2018 Status: F Source: [place] PROFILE ([facility]) 6:39 AM [facility] REPOSITORY TYPE CODE TESTS RESULT OUT OF RANGE REFERENCE UNITS LAB L501.0100 74-106 mg/dL High GLU 414 Result Comment: Glucose result greater than or equal to 200 mg/dL suggests DIABETES MELLITUS per A.D.A. criteria. Please note revised GLUCOSE reference range effective 2017. LAB L501.1000 7-18 mg/dL High BUN 36 LAB L501.1100 0.70-1.30 mg/dL High CREAT,SERUM 1.43 Result Comment: The validity of the calculated GFR AND GFRAA in patients over 70 years has not been determined. Clinical correlation is essential. LAB L501.1110 >60 mL/min Low EST GFR 55 Result Comment: Non- GFR Calc LAB L501.1115 >60 mL/min Normal EST GFR - AA 66 Result Comment: GFR Calc LAB L501.1255 ml/min Normal Estimated CRCL 48.87 LAB L501.1300 10-20 RATIO High BUN/CRE 25.2 LAB L501.2200 8.5-10 mg/dL Normal .1 CA 8.5 LAB L501.5300 136-14 mmol/L Low 5 NA 133 LAB L501.5600 3.5-5. mmol/L Normal 1 K 4.5 LAB L501.5900 98-107 mmol/L Normal CL 99 LAB L501.6100 21.0-3 mmol/L Normal 2.0 CO2 25.0 LAB L501.6200 5-15 Normal GAP 9 Performed By: #### L500.2500 #### [facility] [address] [place], [place], [address] PROTHROMBIN TIME W/INR Collected: 05/18/2018 Status: F Source: [place] 6:39 AM [facility] REPOSITORY TYPE CODE TESTS RESULT OUT OF REFERENCE UNITS RANGE LAB L300.4150 11.7-14.9 SECONDS High PROTIME 44.7 LAB L300.4200 High alert INR 4.7 Result Comment: RESULTS CALLED TO FRANCK MOSLEY 05/18/18 0746 Zuly Bower. REPORT READ BACK BY SAME. Performed By: #### L300.3900 #### [facility] [address] [place], [address] BEDSIDE GLUCOSE Collected: 05/17/2018 Status: F Source: [place] 10:24 PM [facility] REPOSITORY TYPE CODE TESTS RESULT OUT OF REFERENCE UNITS RANGE LAB L501.080 70-110 mg/dL High BEDSIDE GLU 412 Result Comment: MANAGEMENT OF PATIENT CARE PER NURSING PROTOCOL Performed By: #### L501.080 #### [facility] Point of Care [address] [place] [address] BEDSIDE GLUCOSE Collected: 05/17/2018 Status: F Source: [place] 4:14 PM [facility] REPOSITORY TYPE CODE TESTS RESULT OUT OF REFERENCE UNITS RANGE LAB L501.080 70-110 mg/dL High BEDSIDE GLU 413 Result Comment: Insulin Given MANAGEMENT OF PATIENT CARE PER NURSING PROTOCOL Performed By: #### L501.080 #### [facility] Point of Care [address] [place] [address] BEDSIDE GLUCOSE Collected: 05/17/2018 Status: F Source: [place] 11:11 AM [facility] REPOSITORY TYPE CODE TESTS RESULT OUT OF REFERENCE UNITS RANGE LAB L501.080 70-110 mg/dL High BEDSIDE GLU 334 Result Comment: MANAGEMENT OF PATIENT CARE PER NURSING PROTOCOL Performed By: #### L501.080 #### [facility] Point of Care [address] [place] [address] Observed: 05/17/2018 Status: F Source: [place] LEGIONELLA ANTIGEN 9:10 AM [facility] URINE REPOSITORY Legionella, UR Legionella Antigen result interpretation: Negative Presumptive negative for Legionella pneumophila serogroup 1 antigen in urine, suggesting no recent or current infection. Legionella Ag, Urine Negative (See interpretation below) Performed By: #### M300.4500 #### [facility] [place], [address] STREP Observed: 05/17/2018 Status: F Source: [place] PNEUMONIAE ANTIG(UR,CSF) 9:10 AM [facility] REPOSITORY S pneumo Ag URINE INTERPRETATION Negative Urine Presumptive negative for pneumococcal pneumonia, suggesting no current or recent pneumococcal infection. Infection due to S pneumoniae cannot be ruled out since the antigen present in the sample may be below the detection limit of the test. Strep pneumo Test Negative URINE (See interpretation below) Performed By: #### M300.4600 #### [facility] [address] [facility] [place], [address] Observed: 05/17/2018 Status: F Source: [place] CULTURE, SPUTUM 8:30 AM [facility] REPOSITORY Order Date: 05/17/18 Gram Stain Acceptable Specimen? Yes (<25 Epithelial cells per/lpf) Gram Stain Rare Yeast Like Organisms 2+ White Blood Cells Rare Epithelial cells 2+ Gram positive cocci in chains Resp. Culture Mixed normal respiratory parrish. No Haemophilus, Streptococcus pneumoniae, beta-hemolytic Streptococcus or Staphylococcus aureus isolated. ORGANISM 1: Presumptive C albicans Amount Growth 1+ Performed By: #### M100.0800 #### [facility] [address] [facility], [address] Observed: 05/17/2018 Status: F Source: [place] RESPIRATORY PANEL 7:40 AM [facility] MOLECULAR REPOSITORY RP PANEL ADENOVIRUS Not Detected HUMAN METAPHNEUMO Not Detected INFLUENZA A Not Detected INFLUENZA A (SUBTYPE H1) Not Detected INFLUENZA A (SUBTYPE H3) Not Detected INFLUENZA B Not Detected PARAINFLUENZA 1 Not Detected PARAINFLUENZA 2 Not Detected PARAINFLUENZA 3 Not Detected PARAINFLUENZA 4 Not Detected RHINOVIRUS Not Detected RSV A Not Detected RSV B Not Detected NAAT METHOD Testing was performed using nucleic acid amplification Performed By: #### M100.638 #### [facility] [address] [facility], [address] PROTHROMBIN TIME W/INR Collected: 05/17/2018 Status: F Source: [place] 7:08 AM [facility] REPOSITORY TYPE CODE TESTS RESULT OUT OF REFERENCE UNITS RANGE LAB L300.4150 11.7-14.9 SECONDS High PROTIME 41.4 LAB L300.4200 High alert INR 4.3 Result Comment: CRITICAL VALUE VERIFIED. CALLED TO JUDY VOSS IN PCU 05/17/18 0736 Vero Bunch. RESULTS READ BACK BY SAME . Performed By: #### L300.3900 #### [facility] [address] [place], [place], [address] RENAL PROFILE Collected: 05/17/2018 Status: F Source: [place] 7:08 AM [facility] REPOSITORY TYPE CODE TESTS RESULT OUT OF RANGE REFERENCE UNITS LAB L501.0100 74-106 mg/dL High GLU 265 Result Comment: Glucose result greater than or equal to 200 mg/dL suggests DIABETES MELLITUS per A.D.A. criteria. Please note revised GLUCOSE reference range effective 2017. LAB L501.1000 7-18 mg/dL High BUN 26 LAB L501.1100 0.70-1.30 mg/dL High CREAT,SERUM 1.44 Result Comment: The validity of the calculated GFR AND GFRAA in patients over 70 years has not been determined. Clinical correlation is essential. LAB L501.1110 >60 mL/min Low EST GFR 54 Result Comment: Non- GFR Calc LAB L501.1115 >60 mL/min Normal EST GFR - AA 65 Result Comment: GFR Calc LAB L501.1255 ml/min Normal Estimated CRCL 48.53 LAB L501.1300 10-20 RATIO Normal BUN/CRE 18.1 LAB L501.1800 3.2-5. g/dL Normal 0 ALB 3.5 LAB L501.2200 8.5-10 mg/dL Normal .1 CA 8.7 LAB L501.2300 2.5-4. mg/dL Normal 9 PHOS 3.2 LAB L501.5300 136-14 mmol/L Low 5 NA 135 LAB L501.5600 3.5-5. mmol/L Normal 1 K 4.4 LAB L501.5900 98-107 mmol/L Low CL 97 LAB L501.6100 21.0-3 mmol/L Normal 2.0 CO2 24.0 Performed By: #### L500.3601 #### [facility] [address] [place], [address] HISTORY AND PHYSICAL Observed: 05/17/2018 Status: F Source: [place] EXAM 6:53 AM [facility] REPOSITORY [facility] Medical Records Department [address] [place] [address] History and Physical 05/17/18 0021 MR#: [id number] Acct: [id number] Name: DAKOTAH PRATT Rep #: [id number] : 1960 57 From: Mildred Terry MD PCP: Allen Batres MD Status: ADM ROVERTO Y Location: [place] [address] History of Present Illness Date of Admission: 05/17/18 Chief Complaint: shortness of breath, productive cough The patient is a 57 year old M with an extensive past medical history as listed below. He was admitted through the ED on 05/17/2018 with a complaint of worsening shortness of breath and a productive cough for the past 3 days. He was recently seen in the ED for similar symptoms and treated with a Z-Lion for bronchitis. However symptoms worsen he still had worsening shortness of breath with a cough productive of greenish sputum. Cough actually worsened and today he said he simply felt like he could not breathe anymore. He did not have any fever or chills and had pleuritic chest pain with coughing but no hemoptysis. He called the EMS and had to be put on BiPAP on account of hypoxia. CBC showed white cell count of 7 and BMP was significant for sodium of 131 as well as creatinine of 2.1. EKG showed paced rhythm with rate at 88 and chest x-ray showed chronic changes and possible right lower lobe infiltrate. In the ED, they try to wean him off the BiPAP but he became more hypoxic and had to be put on BiPAP again. He was eventually transitioned to oxygen with saturation in the mid 90s but could not tolerate being off of oxygen. He is been admitted to be managed for respiratory insufficiency due to community-acquired pneumonia. He was started on IV Levaquin. 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) ICD (implantable cardioverter-defibrillator), biventricular, in situ (Chronic) Atherosclerosis of hamilton coronary artery of hamilton heart without angina pectoris (Chronic) PCI to LAD AND diagonal in 2009; Diabetes mellitus (Chronic) Obesity (Chronic) Hypertension (Chronic) Benign prostatic hypertrophy (Chronic) COPD (chronic obstructive pulmonary disease) (Chronic) GERD (gastroesophageal reflux disease) (Chronic) JUAN DIEGO (obstructive sleep apnea) (Chronic) AICD (automatic cardioverter/defibrillator) present (Chronic) 12/2009 implant; PAD (peripheral artery disease) (Chronic) Pleural effusion, left (Chronic) S/P PTCA (percutaneous transluminal coronary angioplasty) (Chronic) HLD (hyperlipidemia) (Chronic) Ischemic cardiomyopathy (Chronic) Systolic CHF, chronic (Chronic) Atrial fibrillation (Chronic) AV Node RFA 07/11/2015 H/O atrioventricular chris ablation (Chronic 07/11/15) Medical History: Medical History (Last Reviewed 02/04/18 @ 16:06 by Keven Willingham MD) Mural thrombus of cardiac apex (Chronic) I51.3 correction 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 (Chronic) Z79.01 ICD (implantable cardioverter-defibrillator), biventricular, in situ (Chronic) Z95.810 Atherosclerosis of hamilton coronary artery of hamilton heart without angina pectoris (Chronic) I25.10 PCI to LAD AND diagonal in 2009; Diabetes mellitus (Chronic) E11.9 Obesity (Chronic) E66.9 Hypertension (Chronic) I10 Benign prostatic hypertrophy (Chronic) N40.0 COPD (chronic obstructive pulmonary disease) (Chronic) J44.9 GERD (gastroesophageal reflux disease) (Chronic) K21.9 [place] (obstructive sleep apnea) (Chronic) G47.33 PAD (peripheral artery disease) (Chronic) I73.9 Pleural effusion, left (Chronic) J90 HLD (hyperlipidemia) (Chronic) E78.5 Ischemic cardiomyopathy (Chronic) I25.5 Hypokalemia (Acute) E87.6 Hypotension (Acute) I95.9 Acute on chronic renal failure (Acute) N17.9, N18.9 Near syncope (Acute) Systolic CHF, chronic (Chronic) I50.22 Atrial fibrillation (Chronic) I48.91 AV Node RFA 07/11/2015 Light headedness (Acute) R42 Chest pain (Acute) R07.9 Atherosclerosis of hamilton coronary artery of hamilton heart without angina pectoris I25.10 03/25/2007 EVAN to prox LAD and PTCA to Diag 1; 07/19/2008 PTCA/EVAN to ostium of LAD; 07/31/2008 PTCA to ostial LAD and Diagonal 1; 05/2009 PTCA/EVAN to mid LAD and Diagonal 1 LV apical aneurysm with thrombus History of cardiac pacemaker Onset Date: 07/11/15 Z95.0 Allergies tramadol Allergy (Verified 09/06/17 21:37) Hives Penicillins Adverse Reaction (Verified 09/06/17 21:37) Nausea Home Medications: Ambulatory Orders Medication Instructions Recorded Insulin Glargine,Hum.rec.anlog 70 unit SQ QHS 08/16/16 Surgical History: Surgical History (Last Reviewed 02/04/18 @ 16:06 by Keven Willingham MD) AICD (automatic cardioverter/defibrillator) present (Chronic) Z95.810 12/2009 implant; S/P PTCA (percutaneous transluminal coronary angioplasty) (Chronic) Z98.61 H/O atrioventricular chris ablation (Chronic) Onset Date: 07/11/15 Z98.890 History of cholecystectomy Z98.890, Z90.49 S/P aorto-bifemoral bypass surgery Onset Date: 2003 Z95.828 [facility] Surgical History: angioplasty, cholecystectomy, pacemaker implantation, - Psychiatric History: No pertinent psych hx Lives: Alone Smoking Status: Current every day smoker Alcohol: None Drugs: None - *Family History Paternal Family History: Family History (Last Reviewed 02/04/18 @ 16:06 by Keven Willingham MD) Father Hypertension CAD (coronary artery disease) Sister Cancer History Items: Heart Disease - CAD; at approximately 45 years of age Maternal Family History: Family History (Last Reviewed 02/04/18 @ 16:06 by Keven Willingham MD) Father Hypertension CAD (coronary artery disease) Sister Cancer History Items: No pertinent history Review of Systems Constitutional: Reports: Chills, Fever, Malaise, Weakness, Fatigue. Denies: Anorexia Eyes: Denies: Blurred vision HEENT: Denies: Head Aches, Sinus Congestion, Sinus Drainage Cardiovascular: Denies: Chest Pain, Chest Pressure, Chest Tightness, Edema, Heaviness, Light Headedness, Orthopnea, Palpitations Respiratory: Reports: Cough, Pleuritic Pain, Shortness of Breath, Shortness of breath at rest, Shortness of breath upon exertion, Sputum production, Wheezing Gastrointestinal: Denies: Abdominal Pain, Nausea, Vomiting Genitourinary: Denies: Dysuria Musculoskeletal: Denies: Joint Pain, Joint Tenderness Skin: Denies: Rash, Wounds Neurological: Denies: Numbness, Tingling, Focal weakness Psychiatric: Denies: Anxiety, Depression, Homicidal Ideations, Suicidal Ideations Hematologic/ Lymphatic: Denies: Easy Bruising, Easy Bleeding VTE Information - Inpt Only VTE Present on Admission: No VTE Pharm Prophylaxis ordered?: Yes - Physical Exam General: Alert, Oriented x3, Cooperative, - - in moderate respiratory distress HEENT: Atraumatic, PERRLA, EOMI, Normocephalic Oral: Dry Mucosa Neck: Supple, No JVD, Negative Carotid Bruits Lungs: - - lungs sound very tight, with wheezing and crackles. Breath sounds diminished in all lung mancuso posteriorly Cardiovascular: Regular rate, Regular Rhythm, Normal S1, Normal S2, No murmurs, - - pacemaker in place Abdomen: Bowel Sounds Present, Soft, Non Tender, Non-Distended, No Hepato-splenomegaly Extremities: No clubbing, No cyanosis, No edema, Capillary Refill Less than 3 Seconds Skin: No rashes, No breakdown Musculoskeletal: No Tenderness to Palpation of Joints or Extremities Lymphatic: No Cervical, Supraclavicular, or Inguinal Adenopathy Neurological: Cranial nerves II-XII grossly intact, Neuro grossly intact, Motor Exam 5/5 strength throughout Psych/Mental Status: Normal Affect, Appropriate, Alert and oriented to time, place, person, mood and affect Vital Signs Temp Pulse Resp BP Pulse Ox 98.9 F 80 17 116/82 H 100 05/16/18 23:00 05/16/18 23:00 05/16/18 23:00 05/16/18 23:00 05/16/18 23:00 Oxygen Flow Rate (L/min) 3 Oxygen Delivery Method Nasal Cannula Weight: 210 lb 8.663 oz Body Mass Index (BMI) 36.1 Finger Stick Blood Glucose 303 Laboratory Tests Past 24 Hrs WBC 7.1 WBC RBC Hgb Hct MCV MCH MCHC RDW RDW Differential Plt Count MPV Immature Gran % (Auto) Neut % (Auto) Lymph % (Auto) Diagnostic Data Chest X-Ray 05/16/18 19:20 IMPRESSION: Possible developing right lower lobe infiltrate Electronically Signed: Juan C Chapin MD at 20:49 EST , Service support , Assessment/Plan All Active Problems (Last Reviewed 02/04/18 @ 16:06 by Keven Willingham MD) Hypokalemia (Acute) Hypotension (Acute) Acute on chronic renal failure (Acute) Near syncope (Acute) Light headedness (Acute) Chest pain (Acute) Pneumonia (Resolved) 57 y/o admitted with a complaint of worsening SOB and productive after failing outpatient therapy with azithromycin for bronchitis 1. Acute respiratory insufficiency due to bronchitis vs community acquired pneumonia * cough productive of yellowish-greenish sputum * lungs sound very tight, with wheezing and crackles. * CXR showed possible developing right lower lobe infiltrate * on 4L of oxygen and maintaining saturation 98% * admit to PCU with telemetry * IV solumedrol 40mg q8 * IV levaquin 750mg daily * breathing treatments with solumedrol * 2. Bronchitis and possible community acquired pneumonia * management as under 1. * 3. Hyponatremia: * Na is 131. likely due to a hypotonic, hypovolemic hyponatremia. * patient appears clinically dry * hydrate with IVF and monitor * 4. CKD 3: Cr is 1.65. baseline Cr is 1.5 from earlier this year. Will monitor 5. Hypertension: on Coreg and lisinopril. 6. CAD: on aspirin, carvedilol, statin 7. Arrhythmia s/p pacemaker: stable 8. diabetes mellitus: on lantus 70Iu qhs and lispro 16Iu tidwm. ISS. Accuchecks ACHS 9. Afib: on carvedilol. Also on on coumadin. INR is 3.9. will hold coumadin until INR is in therapeutic range 10. Supratherapeutic INR: Inr is 3.9. Hold coumadin and monitor DVT prophylaxis: on coumadin. GI prophylaxis: famotidine * Code Visit OBSV E AND M: 26143 Initial observation care L3 05/17/18 0653 <Electronically signed by Mildred Terry MD> Date Mildred Terry MD Cosign Signature: Date (if applicable) CC: Mildred Terry MD; Allen Batres MD Signed BEDSIDE GLUCOSE Collected: 05/17/2018 Status: F Source: [place] 6:30 AM [facility] REPOSITORY TYPE CODE TESTS RESULT OUT OF REFERENCE UNITS RANGE LAB L501.080 70-110 mg/dL High BEDSIDE GLU 291 Result Comment: MANAGEMENT OF PATIENT CARE PER NURSING PROTOCOL Performed By: #### L501.080 #### [facility] [place] [address] BASIC METABOLIC Collected: 05/17/2018 Status: F Source: [place] PROFILE (BMP) 5:21 AM [facility] REPOSITORY TYPE CODE TESTS RESULT OUT OF RANGE REFERENCE UNITS LAB L501.0100 74-106 mg/dL High GLU 257 Result Comment: Glucose result greater than or equal to 200 mg/dL suggests DIABETES MELLITUS per A.D.A. criteria. Please note revised GLUCOSE reference range effective 2017. LAB L501.1000 7-18 mg/dL High BUN 28 LAB L501.1100 0.70-1.30 mg/dL High CREAT,SERUM 1.47 Result Comment: The validity of the calculated GFR AND GFRAA in patients over 70 years has not been determined. Clinical correlation is essential. LAB L501.1110 >60 mL/min Low EST GFR 53 Result Comment: Non- GFR Calc LAB L501.1115 >60 mL/min Normal EST GFR - AA 64 Result Comment: GFR Calc LAB L501.1255 ml/min Normal Estimated CRCL 47.54 LAB L501.1300 10-20 RATIO Normal BUN/CRE 19.0 LAB L501.2200 8.5-10 mg/dL Normal .1 CA 8.6 LAB L501.5300 136-14 mmol/L Low 5 NA 131 LAB L501.5600 3.5-5. mmol/L Normal 1 K 4.5 LAB L501.5900 98-107 mmol/L Low CL 97 LAB L501.6100 21.0-3 mmol/L Normal 2.0 CO2 24.0 LAB L501.6200 5-15 Normal GAP 10 Performed By: #### L500.2500 #### [facility] [address] [place], [address] CBC W/DIFF, AUTOMATED Collected: 05/17/2018 Status: F Source: [place] 5:21 AM [facility] REPOSITORY TYPE CODE TESTS RESULT OUT OF RANGE REFERENCE UNITS LAB L100.1000 4.4-11.0 K/mm3 Normal WBC 6.9 LAB L100.1200 4.6-6.2 M/mm3 Normal RBC 4.90 LAB L100.1300 13.0-16.5 g/dl Normal HGB 15.8 LAB L100.1400 40-54 % Normal HCT 43.4 LAB L100.1500 80-94 fL Normal MCV 88.6 LAB L100.1600 27.0-32.0 pg High MCH 32.2 LAB L100.1700 32-36 g/gl High MCHC 36.4 LAB L100.1810 11.6-14.6 % Normal RDW CV 13.7 LAB L100.1820 35.1-43.9 fl Normal RDW SD 41.1 LAB L100.1900 150-450 K/mm3 Normal PLT 181 LAB L100.2000 6.2-12.0 fl Normal MPV 10.5 LAB L100.2100 47-70 % High NEUT% 92.3 LAB L100.2200 19-41 % Low LY% 6.1 LAB L100.2300 0-10 % Normal MONO% 0.9 LAB L100.2400 0-5 % Normal EO% 0.4 LAB L100.2500 0-1 % Normal BASO% 0.3 LAB L100.2550 0.0-0.9 % Normal IM GRAN % 0.000 Result Comment: IG% - Immature Granulocytes (promyelocytes, myelocytes and metamyelocytes) > 1% indicates that a LEFT SHIFT is Present. LAB L100.2620 2.0-7.7 X10 3/uL Normal Absolute Neut 6.4 LAB L100.2720 0.83-4.51 X10 3/ul Low Absolute Lymph 0.42 Performed By: #### L100.0100 #### [facility] [address] [place], [address] BEDSIDE GLUCOSE Collected: 05/17/2018 Status: F Source: [place] 2:02 AM [facility] REPOSITORY TYPE CODE TESTS RESULT OUT OF REFERENCE UNITS RANGE LAB L501.080 70-110 mg/dL High BEDSIDE GLU 216 Result Comment: MANAGEMENT OF PATIENT CARE PER NURSING PROTOCOL Performed By: #### L501.080 #### [facility] Point of Care [address] [place] [address] EMERGENCY DEPARTMENT Observed: 05/17/2018 Status: F Source: [place] SUMMARY 12:15 AM [facility] REPOSITORY [facility] Medical Records Department [address] [facility] [place] [address] Emergency Department Summary 05/17/18 0006 MR#: [id number] Acct: [id number] Name: DAKOTAH PRATT Rep #: [id number] : 1960 57 From: Jaylon Hernandez MD PCP: Allen Batres MD Status: REG ER - ER Visit Summary Date of Service: 05/17/18 Chief Complaint: Shortness of breath. History of Present Illness: The patient is a 57 M history of insulin-dependent diabetes, TIA, CAD and UT, hypertension and A. fib. Denies any history of COPD not on home O2. Patient recently was seen in the ER treated as outpatient for bronchitis with Z-Lion. Patient states he does not feel he is getting better he feels more short of breath. And he says his cough is not gotten any better. Productive of yellowish to brown phlegm. No hemoptysis. No chest pain. No fever. Physical Examination: Middle-aged male initially on BiPAP by squad. Blood pressure 140/101. Pulse ox is 100% BiPAP. Off the O2 is hypoxic. HEENT exam unremarkable moist his membranes. Neck nontender no lymphadenopathy. Lungs coarse breath sounds. Expiratory wheezing. No rales. No rhonchi. Heart rhythm no murmur. Abdomen soft nontender. Normal bowel sounds no peritoneal signs. Extremities his chronic edema in the lower extremities is equal symmetrical. Calves are nontender. Neurologically is awake alert with no focal motor deficits. Test Results: CBC normal white count 7. Hemoglobin 15. Electrolytes sodium 131. BUN and creatinine 21 and 1.65. Glucose of 310. Gap of 8. Troponin normal. BNP of 136. EKG is paced rhythm at 88. Chest x-ray chronic changes cannot rule out a right lower lobe infiltrate. Emergency Department Course and Treatment: Patient treated with aerosol treatments. Initially we took him off the BiPAP but squad had a mom. He became hypoxic. He was put on BiPAP again. After aerosol treatments he is doing better. And he is currently stable on just oxygen. With a sat in the mid 90s. Without oxygen no he becomes hypoxic. Treatment Plan: Patient be started on IV Levaquin for community- acquired right lower lobe pneumonia. Due to his hypoxia I think he needs admitted. I have already spoken to the hospitalist and she will admit him to medical floor. Patient is comfortable with that plan. Disposition: Admission Impression: Acute right lower lobe pneumonia Bronchospasm with wheezing Hypoxia Pacemaker History of insulin-dependent diabetes This note was generated with [employer] dictation software. It may contain incorrect words, spelling, and punctuation that were not noted in review of the chart prior to signing ED Disposition - Plan for ED Patient: Chief Complaint: Shortness of Breath Referrals: Allen Batres MD [Primary Care Provider] - What to do if you have Problems For any increased pain, shortness of breath, bleeding, nausea or vomiting, chest pain, or any unexpected problems, contact your Primary Care Provider. Call [facility] ([phone]) or report to the closest Emergency Room. Call 911 if necessary. 05/17/18 0015 <Electronically signed by Jyalon Hernandez MD> Date Jaylon Hernandez MD Cosigner Signature (If Indicated): Date CC: Allen Batres MD CHEST 1 VIEW Observed: 05/16/2018 Status: F Source: [place] (PORTABLE) 6:46 PM [facility] REPOSITORY [facility] Imaging Services [address] [place] [address] Chest 1 View (Portable) MR#: [id number] Acct: [id number] Name: DAKOTAH PRATT Rep #: [id number] : 1960 M 57 From: Juan C Chapin MD PCP: Allen Batres MD Status: REG ER Study: Chest 1 View (Portable) Date of Exam: 05/16/18 Exam# [id number] Ordering Dr: Jaylon Hernandez MD STUDY: X-RAY CHEST REASON FOR EXAM: Male, 57 years old. Chest pain and shortness of breath TECHNIQUE: Single frontal view of the chest. COMPARISON: September 07, 2017 FINDINGS: 3-lead AICD right chest unchanged in position. Possible developing right lower lobe infiltrate. There is no demonstrated pleural abnormality. Normal size heart. Normal mediastinum and katrina. Normal visualized pulmonary arteries. Normal visualized aortic arch and descending thoracic aorta. Normal visualized thoracic spine. Normal visualized ribs, clavicles, and shoulders. There is no demonstrated abnormality of the visualized soft tissue structures of the upper abdomen. RAD/Chest 1 View (Portable) IMPRESSION: Possible developing right lower lobe infiltrate Electronically Signed: Juan C Chapin MD at 20:49 EST , Service support , CC: Jaylon Hernandez MD; Allen Batres MD Shredding Specialist: Signed CBC W/DIFF, AUTOMATED Collected: 05/16/2018 Status: F Source: [place] 6:45 PM [facility] REPOSITORY TYPE CODE TESTS RESULT OUT OF RANGE REFERENCE UNITS LAB L100.1000 4.4-11.0 K/mm3 Normal WBC 7.1 LAB L100.1200 4.6-6.2 M/mm3 Normal RBC 4.88 LAB L100.1300 13.0-16.5 g/dl Normal HGB 15.4 LAB L100.1400 40-54 % Normal HCT 43.4 LAB L100.1500 80-94 fL Normal MCV 88.9 LAB L100.1600 27.0-32.0 pg Normal MCH 31.6 LAB L100.1700 32-36 g/gl Normal MCHC 35.5 LAB L100.1810 11.6-14.6 % Normal RDW CV 13.5 LAB L100.1820 35.1-43.9 fl Normal RDW SD 42.3 LAB L100.1900 150-450 K/mm3 Normal PLT 177 LAB L100.2000 6.2-12.0 fl Normal MPV 10.1 LAB L100.2100 47-70 % High NEUT% 72.8 LAB L100.2200 19-41 % Low LY% 14.4 LAB L100.2300 0-10 % Normal MONO% 9.5 LAB L100.2400 0-5 % Normal EO% 2.9 LAB L100.2500 0-1 % Normal BASO% 0.3 LAB L100.2550 0.0-0.9 % Normal IM GRAN % 0.100 Result Comment: IG% - Immature Granulocytes (promyelocytes, myelocytes and metamyelocytes) > 1% indicates that a LEFT SHIFT is Present. LAB L100.2620 2.0-7.7 X10 3/uL Normal Absolute Neut 5.2 LAB L100.2720 0.83-4.51 X10 3/ul Normal Absolute Lymph 1.03 Performed By: #### L100.0100 #### [facility] [address] [place], [place] [address]all [facility] [place], [address] BASIC METABOLIC Collected: 05/16/2018 Status: F Source: [place] PROFILE (BMP) 6:45 PM [facility] REPOSITORY TYPE CODE TESTS RESULT OUT OF RANGE REFERENCE UNITS LAB L501.0100 74-106 mg/dL High GLU 310 Result Comment: Glucose result greater than or equal to 200 mg/dL suggests DIABETES MELLITUS per A.D.A. criteria. Please note revised GLUCOSE reference range effective 2017. LAB L501.1000 7-18 mg/dL High BUN 29 LAB L501.1100 0.70-1.30 mg/dL High CREAT,SERUM 1.65 Result Comment: The validity of the calculated GFR AND GFRAA in patients over 70 years has not been determined. Clinical correlation is essential. LAB L501.1110 >60 mL/min Low EST GFR 46 Result Comment: Non- GFR Calc LAB L501.1115 >60 mL/min Low EST GFR - AA 56 Result Comment: GFR Calc LAB L501.1255 ml/min Normal Estimated CRCL 42.36 LAB L501.1300 10-20 RATIO Normal BUN/CRE 17.6 LAB L501.2200 8.5-10 mg/dL Normal .1 CA 8.8 LAB L501.5300 136-14 mmol/L Low 5 NA 131 LAB L501.5600 3.5-5. mmol/L Normal 1 K 4.2 LAB L501.5900 98-107 mmol/L Low CL 96 LAB L501.6100 21.0-3 mmol/L Normal 2.0 CO2 27.0 LAB L501.6200 5-15 Normal GAP 8 Performed By: #### L500.2500, L501.4010 #### [facility] [address] [facility] [place], [place], [address] TROPONIN-I Collected: 05/16/2018 Status: F Source: [place] 6:45 PM [facility] REPOSITORY TYPE CODE TESTS RESULT OUT OF RANGE REFERENCE UNITS LAB L501.4010 <0.045 ng/mL Normal < 0.015 TROPONIN-I Result Comment: TROPONIN-I EXPECTED VALUES <0.045 Negative 0.045 - 0.590 Consistent with Cardiac Damage > OR = 0.600 Critical Value Not every elevated troponin is indicative of UT. These values should be used with clinical judgement in examining the patient's clinical picture for diagnosis. To establish a diagnosis of UT versus myocardial injury, there must be a demonstrated rise and/or fall in the troponin values, in addition to ischemic symptoms, EKG changes, new regional wall motion abnormality, and/or angiographical evidence. PLEASE NOTE: REFERENCE RANGES EDITED 17 Performed By: #### L500.2500, L501.4010 #### [facility] [address] [facility] [place], [place], [address] BNP,B-TYPE NATRIURETIC Collected: 05/16/2018 Status: F Source: [place] PEPTIDE 6:45 PM [facility] REPOSITORY TYPE CODE TESTS RESULT OUT OF RANGE REFERENCE UNITS LAB L503.6620 0-100 pg/mL High B-TYPE 136.4 CONRADO PEP Performed By: #### L503.6620 #### [facility] [address] [place], [address] PROTHROMBIN TIME W/INR Collected: 05/16/2018 Status: F Source: [place] 6:45 PM [facility] REPOSITORY TYPE CODE TESTS RESULT OUT OF REFERENCE UNITS RANGE LAB L300.4150 11.7-14.9 SECONDS High PROTIME 38.4 LAB L300.4200 High alert INR 3.9 Result Comment: CRITICAL VALUE VERIFIED. CALLED TO TITO HANCOCK 05/17/18 0028 Keara Shen. RESULTS READ BACK BY SAME . Performed By: #### L300.3900 #### [facility] [address] [place], [address] 12 LEAD ELECTROCARDIOGRAM Observed: 05/14/2018 Status: F Source: [place] 1:53 PM [facility] REPOSITORY [facility] Cardiovascular Services [address] [place] [address] 12 Lead EKG 05/12/18 1321 MR#: [id number] Acct: [id number] Name: DAKOTAH PRATT Rep #: [id number] : 1960 57 From: Keven Willingham MD Attending Dr: Status: DEP ER Ordering Dr: Will Hidalgo MD Date: 05/12/18 Location: ED Sex: M C Admitted: Test Reason : SOB Blood Pressure : / mmHG Vent. Rate : 080 BPM Atrial Rate : 108 BPM P-R Int : 000 ms QRS Dur : 176 ms QT Int : 472 ms P-R-T Axes : 000 213 062 degrees QTc Int : 544 ms Ventricular-paced rhythm Biventricular pacemaker detected Abnormal ECG Confirmed by KEVEN WILLINGHAM MD ([id number]), dictionary editor CHRISTIAN HUIZAR ([id number]) on 05/14/2018 1:52:47 PM Referred By: KAMI Confirmed By:KEVEN WILLINGHAM MD 05/14/18 1352 Date Keven Willingham MD CC: Will Hidalgo MD; Allen Batres MD Signed DISCHARGE INSTRUCTION Observed: 05/12/2018 Status: F Source: [place] 3:42 PM [facility] REPOSITORY [facility] Medical Records Department [address] [place] [address] Discharge Instruction 05/12/18 1500 MR#: [id number] Acct: [id number] Name: DAKOTAH PRATT Rep #: [id number] : 1960 57 From: Will Hidalgo MD PCP: Allen Batres MD Status: DEP ER ED Disposition - Plan for ED Patient: Chief Complaint: Shortness of Breath Instructions: Acute Bronchitis Prescriptions: Azithromycin [Zithromax Z-Lion] 250 mg PO UD #1 box Referrals: Allen Batres MD [Primary Care Provider] - What to do if you have Problems For any increased pain, shortness of breath, bleeding, nausea or vomiting, chest pain, or any unexpected problems, contact your Primary Care Provider. Call [facility] ([phone]) or report to the closest Emergency Room. Call 911 if necessary. 05/12/18 1542 <Electronically signed by Will Hidalgo MD> Date Will Hidalgo MD Cosigner Signature (If Indicated): Date CC: Allen Batres MD EMERGENCY DEPARTMENT Observed: 05/12/2018 Status: F Source: [place] SUMMARY 3:42 PM [facility]OSP[facility] REPOSITORY [facility] Medical Records Department [address] [place] [address] Emergency Department Summary 05/12/18 1309 MR#: [id number] Acct: [id number] Name: DAKOTAH PRATT Rep #: [id number] : 1960 57 From: Will Hidalgo MD PCP: Allen Batres MD Status: DEP ER - ER Visit Summary Date of Service: 05/12/18 Chief Complaint: Cough History of Present Illness: The patient is a 57 M with a cough that has been gradually getting worse over the past week and a half. He has occasional sputum. He has occasional chest pain after coughing. He gets short of breath with exertion and with coughing. He feels lightheaded like he might pass out. He does have a history of heart disease and atrial fibrillation. Also reports diabetes, hypertension, and hyperlipidemia. He has a history of defibrillator and cardiac stents. He takes aspirin, Plavix, and Coumadin among his other medications. He was seen at an outside clinic and had an x-ray that showed possible early pulmonary edema versus reactive airway disease versus pneumonitis. The patient also reported that he had a pulse ox of 80% at home, but it was 99% today at the clinic. Physical Examination: Blood pressure 91/59. Otherwise vitals unremarkable. Afebrile. Patient has a dry cough. Lungs are clear in all mancuso. Heart is regular. Abdomen soft and nontender. He has lower extremity edema with stasis changes. Neurovascularly intact. Alert and oriented. Speaking in full sentences. Test Results: EKG and labs pending. Emergency Department Course and Treatment: Patient treated with a DuoNeb while awaiting results. Patient feels better after his breathing treatment. CBC normal except his platelets were 139. Glucose 284, BUN 27, creatinine 1.53, stable roughly. INR 3.0. Troponin normal. BNP 190. Repeat temperature was 99.3. Heart rate 81, respiratory rate 16, blood pressure 98/73 and 96% on room air. Patient says he normally has a low blood pressure. His maximum blood pressure will be 107 systolic. He feels much better. He ambulated in the department. He did well and did not desaturate. He would like to go home. His outside chest x-ray showed possible early pulmonary edema versus reactive airway disease versus pneumonitis. The remainder of his workup and symptoms are all nonspecific. He is concerned he has an infection and would like to try antibiotics. I believe this is reasonable. I advised him that it can raise his INR, and he will take a half dose of his Coumadin and get his INR rechecked. Patient treated with a Z-lion. Follow-up with primary care. Treatment Plan: As above Disposition: Discharge Impression: 1. Acute bronchitis This note was generated with [employer] dictation software. It may contain incorrect words, spelling, and punctuation that were not noted in review of the chart prior to signing ED Disposition - Plan for ED Patient: Chief Complaint: Shortness of Breath Instructions: Acute Bronchitis Prescriptions: Azithromycin [Zithromax Z-Lion] 250 mg PO UD #1 box Referrals: Allen Batres MD [Primary Care Provider] - What to do if you have Problems For any increased pain, shortness of breath, bleeding, nausea or vomiting, chest pain, or any unexpected problems, contact your Primary Care Provider. Call [facility] ([phone]) or report to the closest Emergency Room. Call 911 if necessary. 05/12/18 1542 <Electronically signed by Will Hidalgo MD> Date Will Hidalgo MD Cosigner Signature (If Indicated): Date CC: Allen Batres MD CBC W/DIFF, AUTOMATED Collected: 05/12/2018 Status: F Source: [place] 1:20 PM [facility] REPOSITORY TYPE CODE TESTS RESULT OUT OF RANGE REFERENCE UNITS LAB L100.1000 4.4-11.0 K/mm3 Normal WBC 6.2 LAB L100.1200 4.6-6.2 M/mm3 Normal RBC 5.05 LAB L100.1300 13.0-16.5 g/dl Normal HGB 14.6 LAB L100.1400 40-54 % Normal HCT 43.9 LAB L100.1500 80-94 fL Normal MCV 86.9 LAB L100.1600 27.0-32.0 pg Normal MCH 28.9 LAB L100.1700 32-36 g/gl Normal MCHC 33.3 LAB L100.1810 11.6-14.6 % Normal RDW CV 13.7 LAB L100.1820 35.1-43.9 fl Normal RDW SD 42.9 LAB L100.1900 150-450 K/mm3 Low PLT 139 LAB L100.2000 6.2-12.0 fl Normal MPV 10.1 LAB L100.2100 47-70 % High NEUT% 76.9 LAB L100.2200 19-41 % Low LY% 11.5 LAB L100.2300 0-10 % Normal MONO% 9.9 LAB L100.2400 0-5 % Normal EO% 1.5 LAB L100.2500 0-1 % Normal BASO% 0.2 LAB L100.2550 0.0-0.9 % Normal IM GRAN % 0.000 Result Comment: IG% - Immature Granulocytes (promyelocytes, myelocytes and metamyelocytes) > 1% indicates that a LEFT SHIFT is Present. LAB L100.2620 2.0-7.7 X10 3/uL Normal Absolute Neut 4.7 LAB L100.2720 0.83-4.51 X10 3/ul Low Absolute Lymph 0.71 Performed By: #### L100.0100 #### [facility] [address] [facility] [place], [place], [address] PROTHROMBIN TIME W/INR Collected: 05/12/2018 Status: F Source: [place] 1:20 PM [facility] REPOSITORY TYPE CODE TESTS RESULT OUT OF RANGE REFERENCE UNITS LAB L300.4150 11.7-14.9 SECONDS High PROTIME 31.4 LAB L300.4200 Normal INR 3.0 Performed By: #### L300.3900 #### [facility] [address] [facility] [facility], [address] BASIC METABOLIC Collected: 05/12/2018 Status: F Source: [place] PROFILE (BMP) 1:20 PM [facility] REPOSITORY TYPE CODE TESTS RESULT OUT OF RANGE REFERENCE UNITS LAB L501.0100 74-106 mg/dL High GLU 284 Result Comment: Glucose result greater than or equal to 200 mg/dL suggests DIABETES MELLITUS per A.D.A. criteria. Please note revised GLUCOSE reference range effective 2017. LAB L501.1000 7-18 mg/dL High BUN 27 LAB L501.1100 0.70-1.30 mg/dL High CREAT,SERUM 1.53 Result Comment: The validity of the calculated GFR AND GFRAA in patients over 70 years has not been determined. Clinical correlation is essential. LAB L501.1110 >60 mL/min Low EST GFR 50 Result Comment: Non- GFR Calc LAB L501.1115 >60 mL/min Normal EST GFR - AA 61 Result Comment: GFR Calc LAB L501.1255 ml/min Normal Estimated CRCL 45.68 LAB L501.1300 10-20 RATIO Normal BUN/CRE 17.6 LAB L501.2200 8.5-10 mg/dL Normal .1 CA 8.7 LAB L501.5300 136-14 mmol/L Low 5 NA 135 LAB L501.5600 3.5-5. mmol/L Normal 1 K 4.2 LAB L501.5900 98-107 mmol/L Normal CL 99 LAB L501.6100 21.0-3 mmol/L Normal 2.0 CO2 28.0 LAB L501.6200 5-15 Normal GAP 8 Performed By: #### L500.2500, L501.4010 #### [facility] [address] [facility] [place], [place], [address] TROPONIN-I Collected: 05/12/2018 Status: F Source: [place] 1:20 PM [facility] REPOSITORY TYPE CODE TESTS RESULT OUT OF RANGE REFERENCE UNITS LAB L501.4010 <0.045 ng/mL Normal < 0.015 TROPONIN-I Result Comment: TROPONIN-I EXPECTED VALUES <0.045 Negative 0.045 - 0.590 Consistent with Cardiac Damage > OR = 0.600 Critical Value Not every elevated troponin is indicative of UT. These values should be used with clinical judgement in examining the patient's clinical picture for diagnosis. To establish a diagnosis of UT versus myocardial injury, there must be a demonstrated rise and/or fall in the troponin values, in addition to ischemic symptoms, EKG changes, new regional wall motion abnormality, and/or angiographical evidence. PLEASE NOTE: REFERENCE RANGES EDITED 17 Performed By: #### L500.2500, L501.4010 #### [facility] [address] [facility] [place], [place], [address] BNP,B-TYPE NATRIURETIC Collected: 05/12/2018 Status: F Source: [place]PT[place] 1:20 PM [facility] REPOSITORY TYPE CODE TESTS RESULT OUT OF RANGE REFERENCE UNITS LAB L503.6620 0-100 pg/mL High B-TYPE 190.4 CONRADO PEP Performed By: #### L503.6620 #### [facility] [address] [place], [address] PROGRESS Observed: 05/12/2018 Status: COMPLETED Source: [place] 12:16 PM [facility] REPOSITORY HNO ID: [id number] Author: Kenyon Faith (Bud) Kaz Service: (none) Author Type: Nurse Practitioner Type: Progress Notes Filed: 05/12/2018 2:01 PM Note Text: Subjective HPI Patient presents with: Cough: productive, shortness of breath x 1.5 weeks Pt states he has home pulse ox and recorded oxygen level of 80% yesterday. When questioned pt why he did not go to local ED states he has been dealing with this for several days. PMH-CHF, UT, DM2, CVA, HTN, a-fib, defibrillator, former smoker Denies any otc treatment for symptoms. Review of Systems Constitutional: Positive for malaise/fatigue. Negative for chills and fever. HENT: Positive for congestion and sore throat. Negative for ear pain. Eyes: Negative for discharge and redness. Respiratory: Positive for cough, sputum production, shortness of breath and wheezing. Negative for hemoptysis. Cardiovascular: Negative for chest pain, palpitations and leg swelling. Gastrointestinal: Negative for abdominal pain, diarrhea, nausea and vomiting. Skin: Negative for rash. Neurological: Negative for headaches. PAST MEDICAL HISTORY Diagnosis Date - Alcoholism in remission ([facility]) - Apical mural thrombus coumadin per Dr. Willingham - Atrial fibrillation ([facility]) anticoagulation per cardiology - Cardiac defibrillator in place 12/2010 Dr. Willingham - Carotid artery disease ([facility]) biltaer ICA 20-39% stenosis on 05/11/13 - CHF (congestive heart failure) ([facility]) - CVA (cerebral infarction) x 2 - Diabetes ([facility]) type 2 - Heart attack ([facility]) 2009 - History of coronary artery stent placement 05/29/09 LAD, Diag - Hyperlipidemia - Hypertension - Mini stroke ([facility]) 2009 - Neuropathy ([facility]) sees Dr. Arnold - Obstructive sleep apnea on CPAP uses cpap, sees Dr. Miles - PAD (peripheral artery disease) ([facility]) 2006 [facility] - Presence of combination internal cardiac defibrillator (ICD) and pacemaker - RBBB (right bundle branch block) - Valvular heart disease PAST SURGICAL HISTORY Procedure Laterality Date - ARTERY BYPASS 2006 bilateral legs at [facility], [place] - DRAIN FINGER ABSCESS COMPL Right 02/29/2016 I AND D right middle finger - PAST SURGICAL HISTORY OF 05/29/09 stent LAD, Diag - PAST SURGICAL HISTORY OF AV chris ablation, pacemaker ALLERGIES Penicillins; Tramadol MEDICATIONS aspirin, enteric coated (ASPIRIN, ENTERIC COATED) 81 mg EC tablet Take 1 tablet by mouth once daily. atorvastatin (LIPITOR) 40 mg tablet Take 1 tablet by mouth daily at bedtime. For cholesterol. bisacodyl EC (DULCOLAX, BISACODYL,) 5 mg EC tablet Take 1 tablet by mouth as directed. Take two (2) the first day of the prep, as explained on the instruction sheet provided. blood sugar diagnostic (HallspotTOUCH ULTRA TEST) test strip Test blood sugar(s) 3 times daily. Dx: Type 2 DM - Uncontrolled E11.65 Insulin: no Blood-Glucose Meter monitoring kit Pt testing twice daily and pt dx. dm2 carvedilol (COREG) 6.25 mg tablet Take 0.5 tablets by mouth twice daily with meals. Hold antihypertensives for SBP <100. Hold betablockers for HR <60 clopidogrel 75 mg tablet Take 75 mg by mouth once daily. COMPOUNDED PRESCRIPTION Support stockings: 20-30 mmhg, knee high with zipperDX: venous insufficiency CPAP famotidine 40 mg tablet Take 40 mg by mouth once daily. furosemide (LASIX) 80 mg tablet Take 1 tablet by mouth twice daily. gabapentin (NEURONTIN) 300 mg capsule TAKE 1 CAPSULE THREE TIMES A DAY insulin glargine U-300 conc (TOUJEO SOLOSTAR U-300 INSULIN) 300 unit/mL (1.5 mL) inpn INJECT 70 UNITS SUBCUTANEOUSLY AT BEDTIME insulin lispro (HUMALOG KWIKPEN INSULIN) 100 unit/mL inpn Inject 16 Units subcutaneously w MEALS. Two or three times daily, depending on meals Insulin Syringe-Needle U-100 1 mL 29 syrg Use bid Lancets lancets Test blood sugar(s) 2 daily. Dx: 250.00 Insulin: Yes lisinopril 2.5 mg tablet Take 2.5 mg by mouth once daily. magnesium citrate solution Take 148 mL by mouth as directed. Take one bottle the first day of the prep, as explained on the instruction sheet provided to you. nitroglycerin sublingual 0.4 mg SL tablet Dissolve 0.4 mg under the tongue every 5 minutes as needed. OTC PRODUCT DiabetAid capsaicin 0.025% cream, applied to feet daily at bedtime. peg 3350-electrolytes (COLYTE) 240-22.72-6.72 -5.84 gram solution Take 4000 ml as directed. Follow written instructions from the doctor's office. potassium chloride (K-ELIZABETH, KLOR-CON) 20 mEq packet Take 20 mEq by mouth twice daily. spironolactone (ALDACTONE) 25 mg tablet Take 25 mg by mouth once daily. ULTICARE PEN NEEDLE 31 gauge x / ndle USE 1 NEEDLE PER DOSE 5 TIMES PER DAY warfarin (COUMADIN) 5 mg tablet Take 5 mg by mouth daily as directed. FAMILY HISTORY Problem Relation Age of Onset - Cancer Mother lung - Heart Father - Hypertension Brother Social History Substance Use Topics - Smoking status: Former Smoker - Smokeless tobacco: Never Used - Alcohol use No Comment: recovered alcoholic (15years) Objective Physical Exam Constitutional: He is well-developed, well-nourished, and in no distress. He appears unhealthy. HENT: Head: Normocephalic. Right Ear: Tympanic membrane, external ear and ear canal normal. Left Ear: Tympanic membrane, external ear and ear canal normal. Nose: Nose normal. Right sinus exhibits no maxillary sinus tenderness and no frontal sinus tenderness. Left sinus exhibits no maxillary sinus tenderness and no frontal sinus tenderness. Mouth/Throat: Oropharynx is clear and moist. Eyes: Conjunctivae are normal. Neck: Normal range of motion. Cardiovascular: Normal rate, regular rhythm and normal heart sounds. B/l mild lower ext edema Pulmonary/Chest: Effort normal and breath sounds normal. No respiratory distress. He has no wheezes. adventious lung sounds throughout Abdominal: Soft. Lymphadenopathy: He has no cervical adenopathy. Skin: Skin is warm and dry. No rash noted. Nursing note and vitals reviewed. ASSESSMENT/PLAN: 1. Cough - ICD9: 786.2, ICD10: R05 Mild hilar prominence centrally with vascular redistribution and diffuse increased interstitial prominence which can be seen in early pulmonary edema Mild peribronchial cuffing could also indicate viral pneumonitis or reactive airway disease. No focal airspace consolidation - Suggested pt go to local ED due to xray findings, hx CHF, and unhealthy appearance and clinical exam - Report called to local ED - Pt refused squad transfer or family transport - Pt drove himself and demanding to drive himself to local ED. - Reviewed risks of this but pt still demanding to take himself to local ED. - XR CHEST 2V FRONTAL/LAT Prescription instructions reviewed with patient as applicable. Patient advised if symptoms do not improve or if symptoms worsen sooner, to contact their primary care physician. Potential red flag symptoms discussed with the patient. Reviewed appropriate action plan to take if red flag symptoms occur. Patient agreeable to treatment plan. Kenyon Mccurdy APRN.TAX APPRAISER XR CHEST 2V FRONTAL/LAT Observed: 05/12/2018 Status: F Source: [place] 11:56 AM [facility] REPOSITORY * * *Final Report* * * DATE OF EXAM: May 12 2018 11:56AM WOX [id number] - XR CHEST 2V FRONTAL/LAT / PROCEDURE REASON: Cough * * * * Physician Interpretation * * * * EXAMINATION: CHEST RADIOGRAPH (2 VIEW FRONTAL and LATERAL) CLINICAL HISTORY: Cough MQ: XC2_5 Comparison: Comparison is made to prior chest dated to September 2016 RESULT: Lines, tubes, and devices: There is a cardiac pacemaker with the tips of its intact leads overlying cardiac silhouette. Lungs and pleura: There is some mild central vascular redistribution and there is increased diffuse interstitial change which can be seen with early pulmonary edema. There is subtle peribronchial cuffing which can be seen in viral pneumonitis and reactive airway disease. There is no focal consolidation or infiltrate. There is no pleural fluid. Cardiomediastinal silhouette: Unchanged cardiomediastinal silhouette. Other: The bony structures are intact IMPRESSION: Mild hilar prominence centrally with vascular redistribution and diffuse increased interstitial prominence which can be seen in early pulmonary edema Mild peribronchial cuffing could also indicate viral pneumonitis or reactive airway disease. No focal airspace consolidation Shredding Specialist: MONALISA Transcribe Date/Time: May 12 2018 12:02P Dictated by : HERNANDEZ GRAHAM MD This examination was interpreted and the report reviewed and electronically signed by: HERNANDEZ GRAHAM MD on May 12 2018 12:05PM EST [id number] [id number] Observed: 05/12/2018 Status: COMPLETED Source: [place] 11:51 AM [facility] REPOSITORY HNO ID: [id number] Author: Wil Watkins (Rt) Byron Hansen Service: (none) Author Type: Ic Designer [employer] Type: Progress Notes Filed: 05/12/2018 11:55 AM Note Text: Radiology Service Progress Note PATIENT NAME: Dakotah Pratt Jr DATE OF SERVICE: May 12, 2018 TIME: 11:51 AM PATIENT IDENTITY VERIFICATION COMPLETED USING TWO (2) METHODS: Patient confirmed name verbally and Date of . PATIENT GENDER DATA: Male PATIENT RELEVANT IMPLANT DATA REVIEWED: Not Applicable RADIOLOGY DEPARTMENT: General X-ray: Exam(s) Completed: Chest X-Ray PERIPHERAL IV DATA: Not applicable SIGNED BY: RT Momo May 12, 2018 11:51 AM CNOV Observed: 05/12/2018 Status: COMPLETED Source: [place] 11:15 AM [facility] REPOSITORY Office Visit ([facility]) ARIANA BOYKINDAKOTAH ([id number]) 1960 M Date Time Provider Department 05/12/18 11:15 AM KENYON MCCURDY (SELLING MANAGER) [facility] During your visit today, we recorded the following information about you: Temperature Pulse Respiration Blood pressure 97.9 degrees 82/minute 16/minute 124/72 Weight 93.4 kg Kenyon Mccurdy APRN.TAX APPRAISER 05/12/2018 2:01 PM Signed Subjective HPI Patient presents with: Cough: productive, shortness of breath x 1.5 weeks Pt states he has home pulse ox and recorded oxygen level of 80% yesterday. When questioned pt why he did not go to local ED states he has been dealing with this for several days. PMH-CHF, UT, DM2, CVA, HTN, a-fib, defibrillator, former smoker Denies any otc treatment for symptoms. Review of Systems Constitutional: Positive for malaise/fatigue. Negative for chills and fever. HENT: Positive for congestion and sore throat. Negative for ear pain. Eyes: Negative for discharge and redness. Respiratory: Positive for cough, sputum production, shortness of breath and wheezing. Negative for hemoptysis. Cardiovascular: Negative for chest pain, palpitations and leg swelling. Gastrointestinal: Negative for abdominal pain, diarrhea, nausea and vomiting. Skin: Negative for rash. Neurological: Negative for headaches. PAST MEDICAL HISTORY Diagnosis Date - Alcoholism in remission ([facility]) - Apical mural thrombus coumadin per Dr. Willingham - Atrial fibrillation ([facility]) anticoagulation per cardiology - Cardiac defibrillator in place 12/2010 Dr. Willingham - Carotid artery disease ([facility]) biltaer ICA 20-39% stenosis on 05/11/13 - CHF (congestive heart failure) ([facility]) - CVA (cerebral infarction) x 2 - Diabetes ([facility]) type 2 - Heart attack ([facility]) 2009 - History of coronary artery stent placement 05/29/09 LAD, Diag - Hyperlipidemia - Hypertension - Mini stroke ([facility]) 2009 - Neuropathy ([facility]) sees Dr. Arnold - Obstructive sleep apnea on CPAP uses cpap, sees Dr. Miles - PAD (peripheral artery disease) ([facility]) 2006 [facility] - Presence of combination internal cardiac defibrillator (ICD) and pacemaker - RBBB (right bundle branch block) - Valvular heart disease PAST SURGICAL HISTORY Procedure Laterality Date - ARTERY BYPASS 2006 bilateral legs at [facility], [place] - DRAIN FINGER ABSCESS COMPL Right 02/29/2016 I AND D right middle finger - PAST SURGICAL HISTORY OF 05/29/09 stent LAD, Diag - PAST SURGICAL HISTORY OF AV chris ablation, pacemaker ALLERGIES Penicillins; Tramadol MEDICATIONS aspirin, enteric coated (ASPIRIN, ENTERIC COATED) 81 mg EC tablet Take 1 tablet by mouth once daily. atorvastatin (LIPITOR) 40 mg tablet Take 1 tablet by mouth daily at bedtime. For cholesterol. bisacodyl EC (DULCOLAX, BISACODYL,) 5 mg EC tablet Take 1 tablet by mouth as directed. Take two (2) the first day of the prep, as explained on the instruction sheet provided. blood sugar diagnostic (HallspotTOUCH ULTRA TEST) test strip Test blood sugar(s) 3 times daily. Dx: Type 2 DM - Uncontrolled E11.65 Insulin: no Blood-Glucose Meter monitoring kit Pt testing twice daily and pt dx. dm2 carvedilol (COREG) 6.25 mg tablet Take 0.5 tablets by mouth twice daily with meals. Hold antihypertensives for SBP <100. Hold betablockers for HR <60 clopidogrel 75 mg tablet Take 75 mg by mouth once daily. COMPOUNDED PRESCRIPTION Support stockings: 20-30 mmhg, knee high with zipperDX: venous insufficiency CPAP famotidine 40 mg tablet Take 40 mg by mouth once daily. furosemide (LASIX) 80 mg tablet Take 1 tablet by mouth twice daily. gabapentin (NEURONTIN) 300 mg capsule TAKE 1 CAPSULE THREE TIMES A DAY insulin glargine U-300 conc (TOUJEO SOLOSTAR U-300 INSULIN) 300 unit/mL (1.5 mL) inpn INJECT 70 UNITS SUBCUTANEOUSLY AT BEDTIME insulin lispro (HUMALOG KWIKPEN INSULIN) 100 unit/mL inpn Inject 16 Units subcutaneously w MEALS. Two or three times daily, depending on meals Insulin Syringe-Needle U-100 1 mL 29 syrg Use bid Lancets lancets Test blood sugar(s) 2 daily. Dx: 250.00 Insulin: Yes lisinopril 2.5 mg tablet Take 2.5 mg by mouth once daily. magnesium citrate solution Take 148 mL by mouth as directed. Take one bottle the first day of the prep, as explained on the instruction sheet provided to you. nitroglycerin sublingual 0.4 mg SL tablet Dissolve 0.4 mg under the tongue every 5 minutes as needed. OTC PRODUCT DiabetAid capsaicin 0.025% cream, applied to feet daily at bedtime. peg 3350-electrolytes (COLYTE) 240-22.72-6.72 -5.84 gram solution Take 4000 ml as directed. Follow written instructions from the doctor's office. potassium chloride (K-ELIZABETH, KLOR-CON) 20 mEq packet Take 20 mEq by mouth twice daily. spironolactone (ALDACTONE) 25 mg tablet Take 25 mg by mouth once daily. ULTICARE PEN NEEDLE 31 gauge x 10/07 ndle USE 1 NEEDLE PER DOSE 5 TIMES PER DAY warfarin (COUMADIN) 5 mg tablet Take 5 mg by mouth daily as directed. FAMILY HISTORY Problem Relation Age of Onset - Cancer Mother lung - Heart Father - Hypertension Brother Social History Substance Use Topics - Smoking status: Former Smoker - Smokeless tobacco: Never Used - Alcohol use No Comment: recovered alcoholic (15years) Objective Physical Exam Constitutional: He is well-developed, well-nourished, and in no distress. He appears unhealthy. HENT: Head: Normocephalic. Right Ear: Tympanic membrane, external ear and ear canal normal. Left Ear: Tympanic membrane, external ear and ear canal normal. Nose: Nose normal. Right sinus exhibits no maxillary sinus tenderness and no frontal sinus tenderness. Left sinus exhibits no maxillary sinus tenderness and no frontal sinus tenderness. Mouth/Throat: Oropharynx is clear and moist. Eyes: Conjunctivae are normal. Neck: Normal range of motion. Cardiovascular: Normal rate, regular rhythm and normal heart sounds. B/l mild lower ext edema Pulmonary/Chest: Effort normal and breath sounds normal. No respiratory distress. He has no wheezes. adventious lung sounds throughout Abdominal: Soft. Lymphadenopathy: He has no cervical adenopathy. Skin: Skin is warm and dry. No rash noted. Nursing note and vitals reviewed. ASSESSMENT/PLAN: 1. Cough - ICD9: 786.2, ICD10: R05 Mild hilar prominence centrally with vascular redistribution and diffuse increased interstitial prominence which can be seen in early pulmonary edema Mild peribronchial cuffing could also indicate viral pneumonitis or reactive airway disease. No focal airspace consolidation - Suggested pt go to local ED due to xray findings, hx CHF, and unhealthy appearance and clinical exam - Report called to local ED - Pt refused squad transfer or family transport - Pt drove himself and demanding to drive himself to local ED. - Reviewed risks of this but pt still demanding to take himself to local ED. - XR CHEST 2V FRONTAL/LAT Prescription instructions reviewed with patient as applicable. Patient advised if symptoms do not improve or if symptoms worsen sooner, to contact their primary care physician. Potential red flag symptoms discussed with the patient. Reviewed appropriate action plan to take if red flag symptoms occur. Patient agreeable to treatment plan. Kenyon Mccurdy APRN.KAMERON Mccurdy APRN.KAMERON 05/12/2018 12:25 PM Signed Referring Provider: SELF [200] Allergies As of Date: 05/12/2018 Noted Allergy Reaction PENICILLINS 08/15/2013 16 - Unknown TRAMADOL 03/03/2016 2 - Rash 9 - Itching Date Reviewed: 05/12/2018 Reviewed by: Guerline Reza Ma - Fully Assessed Reason for Visit: Cough [28] Cmt: productive, shortness of breath x 1.5 weeks Primary Visit Diagnosis:Cough [R05] Order(s):XR CHEST 2V FRONTAL/LAT [[id number]] Order #: [id number] FUTURE Prescriptions as of 05/12/2018 Sig: ASPIRIN 81 MG TABLET,DELAYED * Take 1 tablet by mouth once d* ATORVASTATIN 40 MG TABLET Take 1 tablet by mouth daily * BISACODYL 5 MG TABLET,DELAYED* Take 1 tablet by mouth as dir* BLOOD SUGAR DIAGNOSTIC STRIPS Test blood sugar(s) 3 times d* BLOOD-GLUCOSE METER KIT Pt testing twice daily and pt* CARVEDILOL 6.25 MG TABLET Take 0.5 tablets by mouth twi* CLOPIDOGREL 75 MG TABLET Take 75 mg by mouth once eder* COMPOUNDED PRESCRIPTION Support stockings: 20- 30 mmhg* CPAP FAMOTIDINE 40 MG TABLET Take 40 mg by mouth once eder* FUROSEMIDE 80 MG TABLET Take 1 tablet by mouth twice * GABAPENTIN 300 MG CAPSULE TAKE 1 CAPSULE THREE TIMES A * INSULIN GLARGINE (U-300) CONC* INJECT 70 UNITS SUBCUTANEOUSL* INSULIN LISPRO (U-100) 100 UN* Inject 16 Units subcutaneousl* INSULIN SYRINGE U-100 WITH NE* Use bid LANCETS Test blood sugar(s) 2 daily. * LISINOPRIL 2.5 MG TABLET Take 2.5 mg by mouth once corine* MAGNESIUM CITRATE ORAL SOLUTI* Take 148 mL by mouth as direc* NITROGLYCERIN 0.4 MG SUBLINGU* Dissolve 0.4 mg under the ton* OTC PRODUCT DiabetAid capsaicin 0.025% cr* PEG 3350 240 GRAM-ELECTROLYTE* Take 4000 ml as directed. Fo* POTASSIUM CHLORIDE 20 MEQ ORA* Take 20 mEq by mouth twice da* SPIRONOLACTONE 25 MG TABLET Take 25 mg by mouth once eder* ULTICARE PEN NEEDLE 31 GAUGE * USE 1 NEEDLE PER DOSE 5 TIMES* WARFARIN 5 MG TABLET Take 5 mg by mouth daily as d* Problem List As Of Date 05/12/2018 Noted Resolved Diabetes [E11.9] 04/12/2015 More... Cardiac defibrillator in place [Z95.810] INVALID FOR* More... Hypertension [I10] More... Mini stroke [I63.9] Heart attack [I21.9] 04/28/2017 Sleep apnea [G47.30] More... Hyperlipidemia [E78.5] Neuropathy [G62.9] Apical mural thrombus [I51.3] More... Cerebral infarction (HCC) [I63.9] More... PAD (peripheral artery disease) [I73.9] More... 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 Urinary retention [R33.9] INVALID FOR*04/28/2017 More... SUMMARY [V999.95] INVALID FOR*10/02/2016 More... Diabetes mellitus with neuropathy (HCC) [E11.40]INVALID FOR*04/12/2015 Type 2 diabetes mellitus with diabetic neuropat*INVALID FOR* Renal insufficiency [N28.9] INVALID FOR* Atrial fibrillation (HCC) [I48.91] INVALID FOR* Other instructions from your clinician: Disposition: Return if symptoms worsen or fail to improve. Follow-up and Disposition History Recorded Encounter Status:Closed by KENYON MCCURDY on 05/12/18 PACEMAKER CHECK Observed: 05/06/2018 Status: F Source: [place] 11:16 AM [facility] [address] [place] [address] [address] [place] [address] Pacemaker Check Date of Service: 05/04/181657 MR#: [id number] Acct: [id number] Name: DAKOTAH PRATT Rep #: [id number] : 1960 From: Chrissie Verdugo Age/Sex: 57/M Location: [facility] Status: Signed Billing Codes ICD Device Billing: ICD Dev Prog Melina Diop 05/04/18 1700 <Electronically signed by Chrissie Verdugo > Date Chrissie Verdugo 05/06/18 1116<Electronically signed by Keven Willingham MD> Cosigner Signature: Date (if applicable) Keven Willingham MD CC: CNOV Observed: 04/05/2018 Status: COMPLETED Source: [place] 11:30 AM [facility] RE[facility] Office Visit (VASSWS) DAKOTAH PRATT JR ([id number]) 1960 M Date Time Provider Department 04/05/18 11:30 AM ANA MARIA DEL ANGEL VASSWS During your visit today, we recorded the following information about you: Pulse Blood pressure 81/minute 95/67 Ana Maria Del Angel DO 04/05/2018 10:54 AM Signed This office note has been dictated. Ana Maria Del Angel DO Referring Provider: ANA MARIA DEL ANGEL [[id number]] Allergies As of Date: 04/05/2018 Noted Allergy Reaction PENICILLINS 08/15/2013 16 - Unknown TRAMADOL 03/03/2016 2 - Rash 9 - Itching Date Reviewed: 04/05/2018 Reviewed by: Rivera Dukes RN - Fully Assessed Reason for Visit: Established Patient [175] Primary Visit Diagnosis:Peripheral arterial disease (HCC) [I73.9] Order(s):[facility] [[id number]] Order #: [id number] FUTURE Prescriptions as of 04/05/2018 Sig: GABAPENTIN 300 MG CAPSULE TAKE 1 CAPSULE THREE TIMES A * INSULIN LISPRO (U-100) 100 UN* Inject 16 Units subcutaneousl* INSULIN GLARGINE (U-300) CONC* INJECT 70 UNITS SUBCUTANEOUSL* LANCETS Test blood sugar(s) 2 daily. * FUROSEMIDE 80 MG TABLET Take 1 tablet by mouth twice * ULTICARE PEN NEEDLE 31 GAUGE * USE 1 NEEDLE PER DOSE 5 TIMES* MAGNESIUM CITRATE ORAL SOLUTI* Take 148 mL by mouth as direc* BISACODYL 5 MG TABLET,DELAYED* Take 1 tablet by mouth as dir* BLOOD SUGAR DIAGNOSTIC STRIPS Test blood sugar(s) 3 times d* SPIRONOLACTONE 25 MG TABLET Take 25 mg by mouth once eder* POTASSIUM CHLORIDE 20 MEQ ORA* Take 20 mEq by mouth twice da* LISINOPRIL 2.5 MG TABLET Take 2.5 mg by mouth once corine* ATORVASTATIN 40 MG TABLET Take 1 tablet by mouth daily * CARVEDILOL 6.25 MG TABLET Take 0.5 tablets by mouth twi* WARFARIN 5 MG TABLET Take 5 mg by mouth daily as d* PEG 3350 240 GRAM-ELECTROLYTE* Take 4000 ml as directed. Fo* ASPIRIN 81 MG TABLET,DELAYED * Take 1 tablet by mouth once d* COMPOUNDED PRESCRIPTION Support stockings: 20- 30 mmhg* INSULIN SYRINGE-NEEDLE U-100 * Use bid OTC PRODUCT DiabetAid capsaicin 0.025% cr* BLOOD-GLUCOSE METER KIT Pt testing twice daily and pt* CPAP CLOPIDOGREL 75 MG TABLET Take 75 mg by mouth once eder* FAMOTIDINE 40 MG TABLET Take 40 mg by mouth once eder* NITROGLYCERIN 0.4 MG SUBLINGU* Dissolve 0.4 mg under the ton* Problem List As Of Date 04/05/2018 Noted Resolved Diabetes [E11.9] 04/12/2015 Priority: C More... Cardiac defibrillator in place [Z95.810] INVALID FOR* Priority: C More... Hypertension [I10] Priority: C More... Mini stroke [I63.9] Heart attack [I21.9] 04/28/2017 Sleep apnea [G47.30] More... Hyperlipidemia [E78.5] Neuropathy [G62.9] Apical mural thrombus [I51.3] More... Cerebral infarction (HCC) [I63.9] More... PAD (peripheral artery disease) [I73.9] More... 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 Urinary retention [R33.9] INVALID FOR*04/28/2017 Priority: B More... SUMMARY [V999.95] INVALID FOR*10/02/2016 Priority: Very Severe More... Diabetes mellitus with neuropathy (HCC) [E11.40]INVALID FOR*04/12/2015 Type 2 diabetes mellitus with diabetic neuropat*INVALID FOR* Renal insufficiency [N28.9] INVALID FOR* Atrial fibrillation (HCC) [I48.91] INVALID FOR* Encounter Status:Closed by ANA MARIA DEL ANGEL DO on 04/05/18 PROGRESS Observed: 04/05/2018 Status: COMPLETED Source: [place] 10:54 AM [facility] RE[facility] HNO ID: [id number] Author: Ana Maria Del Angel Service: (none) Author Type: Physician Type: Progress Notes Filed: 04/05/2018 10:54 AM Note Text: This office note has been dictated. Ana Maria Del Angel DO PROGRESS Observed: 04/05/2018 Status: COMPLETED Source: [place] 12:00 AM [facility] REPOSIT[facility] HNO ID: [id number] Author: Ana Maria Del Angel Service: Vascular Surgery Author Type: Physician Type: Progress Notes Filed: 04/09/2018 6:33 PM Note Text: NAME: ARIAAN BOYKINDAKOTAH [facility] NO: [id number] DATE OF SERVICE: 04/05/2018 Subjective: Mr. Pratt is here to follow up. He has a history of aortofemoral bypass and had revascularization subsequent to that with recanalization of an occluded right limb of his iliac and bilateral ilioprofunda bypasses. He has known SFA occlusions bilaterally. Overall, he denies any complaints. He has started back with his PCP to get his blood sugars back under control. His last hemoglobin A1c was 16. He goes through periods of noncompliance. He states he is taking his Coumadin faithfully as well as his aspirin without difficulty. He does have significant bilateral lower extremity neuropathy. Denies rest pain or ulcerations. He has not seen Podiatry in a while. He is wearing shoes. Objective: He is in no distress. He has mild bilateral lower extremity edema. Capillary refill is approximately 4 seconds. He has dry skin on bilateral toes with long nails. His PVRs are unchanged from September as well as his duplex. No significant stenosis identified. He has noncompressible vessels with moderate disease bilaterally. Assessment/Plan: Peripheral arterial disease, status post aortobifemoral bypass with interventions. Reviewed the findings with Dakotah. Recommended that he continue to work with his PCP at getting his hemoglobin A1c down. Recommended that he follow up with Podiatry for nail care as he does have significant peripheral arterial disease in his foot as well as known SFA occlusions. He will continue to exercise and walk as tolerated. He will follow up with me in six months, or sooner with any concerns. Ana Maria Del Angel D.O. KB/089 Audio #: [id number] Date Dictated: 04/05/2018 10:44:48 Date Typed: 04/08/2018 12:36:00 Date Revised: PROGRESS Observed: 03/15/2018 Status: COMPLETED Source: [place] 1:00 PM [facility] [place] REPOSITORY HNO ID: [id number] Author: Michaela Bailey (Pharmacist) Service: (none) Author Type: Pharmacist Type: Progress Notes Filed: 03/15/2018 1:44 PM Note Text: Patient consents to pharmacy collaborative practice agreement. REASON FOR CONSULT: DM GOALS: A1c < 7% CONSULTING PROVIDER: Dr. Batres Date of Consult: 02/04/18 Dakotah Pratt Jr is a 57 year old male was last seen in [facility] by PCP, Dr. Allen Batres MD on 02/04, t which time patient admitted to not taking insulin for 4 months, had re-started it in January. Patient is presenting today for initial pharmacotherapy management appointment for DM. INTERIM HISTORY: Reports is taking the insulin consistently Feeling ok overall Current DM Medications: Toujeo 70 units QHS (0.74 units/kg) Humalog 12 units BID meals, usually eats 2 meals daily - 30 min before meals Current HTN Medications: Lisinopril 2.5mg daily Spironolactone 25mg daily Carvedilol 6.25mg take 1/2 talet BID Furosemide 80mg BID Preventative Medications: ? On LEONIDES/ARB: Yes ? On Statin: Yes ? On ASA: Yes ROS: ? Patient denies CP, SOB, PACKER, blurred vision, dizziness or lightheadedness ? Patient denies symptoms of hypoglycemia (sweating, anxiety, palpitations, hunger, and tremor) ? Patient denies symptoms of hyperglycemia (polyuria, polydipsia, polyphagia) ? Patient denies potential medication adverse effects DIET/EXERCISE/SOCIAL Hx: ? Breakfast: skips ? Lunch: meals on wheels ? Dinner: meatloaf or spaghetti ? Snacks: no ? Following Na restrictions: no ? Beverages: apple or grape juice, unsweetened tea, diet pop ? Tobacco: denies ? Alcohol: denies ? Illicits: denies MEDICATIONS: ? Pill bottles are not present. ? Adherence: reports missed doses of morning pills sometimes, missed Toujeo 3x in the last week ? Pharmacy: [facility] ? Rx coverage: [facility] Medicare ? Affordability: no issues ? Diabetes supplies: One Touch ? Organization System: [facility] compliance packaging ACTIVE PROBLEM LIST Cardiac Defibrillator in Place Hypertension Mini Stroke ([facility]) Sleep Apnea Hyperlipidemia Neuropathy ([facility]) Apical Mural Thrombus Cerebral Infarction ([facility]) PAD (peripheral artery disease) Alcoholism in Remission ([facility]) Valvular Heart Disease Carotid Stenosis Ischemic Cardiomyopathy Type 2 Diabetes Mellitus With Diabetic Neuropathy ([facility]) Renal Insufficiency Atrial Fibrillation ([facility]) PAST MEDICAL HISTORY Diagnosis Date - Alcoholism in remission ([facility]) - Apical mural thrombus coumadin per Dr. Willingham - Atrial fibrillation ([facility]) anticoagulation per cardiology - Cardiac defibrillator in place 12/2010 Dr. Willingham - Carotid artery disease ([facility]) biltaer ICA 20-39% stenosis on 05/11/13 - CHF (congestive heart failure) ([facility]) - CVA (cerebral infarction) x 2 - Diabetes ([facility]) type 2 - Heart attack ([facility]) 2009 - History of coronary artery stent placement 05/29/09 LAD, Diag - Hyperlipidemia - Hypertension - Mini stroke ([facility]) 2009 - Neuropathy ([facility]) sees Dr. Arnold - Obstructive sleep apnea on CPAP uses cpap, sees Dr. Miles - PAD (peripheral artery disease) ([facility]) 2006 [facility] - Presence of combination internal cardiac defibrillator (ICD) and pacemaker - RBBB (right bundle branch block) - Valvular heart disease ALLERGIES Allergen Reactions - Penicillins Unknown - Tramadol Rash, Itching Medication List Medication Directions Comments Action/Plan aspirin, enteric coated (ASPIRIN, ENTERIC COATED) 81 mg EC tablet Take 1 tablet by mouth once daily. taking atorvastatin (LIPITOR) 40 mg tablet Take 1 tablet by mouth daily at bedtime. For cholesterol. taking bisacodyl EC (DULCOLAX, BISACODYL,) 5 mg EC tablet Take 1 tablet by mouth as directed. Take two (2) the first day of the prep, as explained on the instruction sheet provided. blood sugar diagnostic (XOS DigitalUCH ULTRA TEST) test strip Test blood sugar(s) 3 times daily. Dx: Type 2 DM - Uncontrolled E11.65 Insulin: no Blood-Glucose Meter monitoring kit Pt testing twice daily and pt dx. dm2 carvedilol (COREG) 6.25 mg tablet Take 0.5 tablets by mouth twice daily with meals. Hold antihypertensives for SBP <100. Hold betablockers for HR <60 taking clopidogrel 75 mg tablet Take 75 mg by mouth once daily. taking COMPOUNDED PRESCRIPTION Support stockings: 20-30 mmhg, knee high with zipper DX: venous insufficiency CPAP None Entered famotidine 40 mg tablet Take 40 mg by mouth once daily. taking furosemide (LASIX) 80 mg tablet Take 1 tablet by mouth twice daily. taking gabapentin (NEURONTIN) 300 mg capsule TAKE 1 CAPSULE THREE TIMES A DAY taking insulin glargine U-300 conc (TOUJEO SOLOSTAR U-300 INSULIN) 300 unit/mL (1.5 mL) inpn INJECT 70 UNITS SUBCUTANEOUSLY AT BEDTIME taking insulin lispro (HUMALOG KWIKPEN INSULIN) 100 unit/mL inpn Inject 12 Units subcutaneously w MEALS. taking Insulin Syringe-Needle U-100 1 mL 29 syrg Use bid Lancets lancets Test blood sugar(s) 2 daily. Dx: 250.00 Insulin: Yes lisinopril 2.5 mg tablet Take 2.5 mg by mouth once daily. taking magnesium citrate solution Take 148 mL by mouth as directed. Take one bottle the first day of the prep, as explained on the instruction sheet provided to you. nitroglycerin sublingual 0.4 mg SL tablet Dissolve 0.4 mg under the tongue every 5 minutes as needed. OTC PRODUCT DiabetAid capsaicin 0.025% cream, applied to feet daily at bedtime. peg 3350-electrolytes (COLYTE) 240-22.72-6.72 -5.84 gram solution Take 4000 ml as directed. Follow written instructions from the doctor's office. potassium chloride (K-ELIZABETH, KLOR-CON) 20 mEq packet Take 20 mEq by mouth twice daily. taking spironolactone (ALDACTONE) 25 mg tablet Take 25 mg by mouth once daily. taking ULTICARE PEN NEEDLE 31 gauge x /16 ndle USE 1 NEEDLE PER DOSE 5 TIMES PER DAY warfarin (COUMADIN) 5 mg tablet Take 5 mg by mouth daily as directed. 5mg M-F, 2.5mg Sa, Sun Rx meds not listed in EPIC: none OTCs: none Herbals: none GLYCEMIC CONTROL: ? Glucometer present at visit: No ? FBGs lower 200s ? Hypoglycemia: denies At home BP: low 100s/70-80s Last 3 Encounter BP Readings: Date: BP: 02/04/2018 100/70 09/28/2017 108/78 09/16/2017 103/72 Wt: 93.9 kg (207 lb) BMI: 34.45 kg/(m2) LABS Lab Results Component Value Date HBA1C 16.1 02/04/2018 HBA1C HbA1c value is greater than 15%, consider possibility of hemoglobin variant interference. 09/03/2017 HBA1C 7.9 05/04/2017 HBA1C 7.1 02/03/2017 CMP: Glucose 404 02/09/2018 BUN 36 02/09/2018 Creatinine 1.57 02/09/2018 1.24 on 09/16/17 Sodium 129 02/09/2018 Potassium 4.6 02/09/2018 Chloride 91 02/09/2018 CO2 24 02/09/2018 Protein, Total 7.3 02/09/2018 Albumin 4.4 02/09/2018 Calcium 9.3 02/09/2018 Alkaline Phosphatase 113 02/09/2018 Bilirubin, Total 1.1 02/09/2018 AST 24 02/09/2018 ALT 23 02/09/2018 GFR 46 Estimated CrCL 56 mL/min (calculated using Ht 65, adjusted Wt 74.5 kg, sCr 1.57 mg/dL, using [place]) Last Lipid Panel Lab Results Component Value Date CHOL 117 01/23/2016 Lab Results Component Value Date HDL 45 05/04/2017 HDL 31 01/23/2016 Lab Results Component Value Date LDL 63 05/04/2017 LDL 59 01/23/2016 Lab Results Component Value Date TG 86 05/04/2017 Albumin/Creat Ratio (mg/g) Date Value 02/04/2018 Not calculated PHARMACOTHERAPY ASSESSMENT/PLAN: 1. Type 2 diabetes mellitus with diabetic neuropathy, unspecified whether terminal make up operator insulin use (HCC) - ICD9: 250.60, 357.2, ICD10: E11.40 A1c goal < 7%, patient is not at goal (16.1% on 02/04). FBGs reported to be improving but not at goal and no PPBG data available. Patient not compliant with Toujeo, would change to Tresiba for longer duration of action but patient just received Toujeo shipment and prefers not to change insulin. Reinforced need for compliance. Will also increase prandial insulin dose as patient reports to be compliant with this, and continuing to increase basal insulin may not have additional benefit (already on 0.74 units/kg). Move prandial insulin to closer to meals for improved effect. Renal fxn reduced, will recheck, appropriate for continued therapy ? INCREASE Humalog to 16 units BID meals (5 min or less prior to meals, instead of 30 min) ? CONTINUE Toujeo 70 units QHS ? Instructed patient to continue checking FBGs, add bedtime BG daily ? Patient demonstrated insulin administration technique which is approrpriate Health Maintenance issues addressed: DILATED RETINAL EXAM due on 01/18/2016 Patient is scheduled to see PCP open access. Patient to return to clinic for PharmD f/u on 04/20. Patient verbalized understanding of instructions. Michaela Bailey, PharmD, BCPS CNOV Observed: 03/15/2018 Status: COMPLETED Source: [place] 1:00 PM [facility] REPOSITORY Office Visit (PHMEWO) DAKOTAH PRATT JR ([id number]) 1960 M Date Time Provider Department 03/15/18 1:00 PM LEO (PHARMACIST), MICHAELA BOWDEN During your visit today, we recorded the following information about you: MARILU HENNING 03/15/2018 1:44 PM Signed Patient consents to pharmacy collaborative practice agreement. REASON FOR CONSULT: DM GOALS: A1c < 7% CONSULTING PROVIDER: Dr. Batres Date of Consult: 02/04/18 Dakotah Pratt Jr is a 57 year old male was last seen in [facility] by PCP, Dr. Allen Batres MD on 02/04, t which time patient admitted to not taking insulin for 4 months, had re-started it in January. Patient is presenting today for initial pharmacotherapy management appointment for DM. INTERIM HISTORY: Reports is taking the insulin consistently Feeling ok overall Current DM Medications: Toujeo 70 units QHS (0.74 units/kg) Humalog 12 units BID meals, usually eats 2 meals daily - 30 min before meals Current HTN Medications: Lisinopril 2.5mg daily Spironolactone 25mg daily Carvedilol 6.25mg take 1/2 talet BID Furosemide 80mg BID Preventative Medications: ? On LEONIDES/ARB: Yes ? On Statin: Yes ? On ASA: Yes ROS: ? Patient denies CP, SOB, PACKER, blurred vision, dizziness or lightheadedness ? Patient denies symptoms of hypoglycemia (sweating, anxiety, palpitations, hunger, and tremor) ? Patient denies symptoms of hyperglycemia (polyuria, polydipsia, polyphagia) ? Patient denies potential medication adverse effects DIET/EXERCISE/SOCIAL Hx: ? Breakfast: skips ? Lunch: meals on wheels ? Dinner: meatloaf or spaghetti ? Snacks: no ? Following Na restrictions: no ? Beverages: apple or grape juice, unsweetened tea, diet pop ? Tobacco: denies ? Alcohol: denies ? Illicits: denies MEDICATIONS: ? Pill bottles are not present. ? Adherence: reports missed doses of morning pills sometimes, missed Toujeo 3x in the last week ? Pharmacy: [facility] ? Rx coverage: [facility] Medicare ? Affordability: no issues ? Diabetes supplies: One Touch ? Organization System: [facility] compliance packaging ACTIVE PROBLEM LIST Cardiac Defibrillator in Place Hypertension Mini Stroke ([facility]) Sleep Apnea Hyperlipidemia Neuropathy ([facility]) Apical Mural Thrombus Cerebral Infarction ([facility]) PAD (peripheral artery disease) Alcoholism in Remission ([facility]) Valvular Heart Disease Carotid Stenosis Ischemic Cardiomyopathy Type 2 Diabetes Mellitus With Diabetic Neuropathy ([facility]) Renal Insufficiency Atrial Fibrillation ([facility]) PAST MEDICAL HISTORY Diagnosis Date - Alcoholism in remission ([facility]) - Apical mural thrombus coumadin per Dr. Willingham - Atrial fibrillation ([facility]) anticoagulation per cardiology - Cardiac defibrillator in place 12/2010 Dr. Willingham - Carotid artery disease ([facility]) biltaer ICA 20-39% stenosis on 05/11/13 - CHF (congestive heart failure) ([facility]) - CVA (cerebral infarction) x 2 - Diabetes ([facility]) type 2 - Heart attack ([facility]) 2009 - History of coronary artery stent placement 05/29/09 LAD, Diag - Hyperlipidemia - Hypertension - Mini stroke ([facility]) 2009 - Neuropathy ([facility]) seemarie Arnold - Obstructive sleep apnea on CPAP uses cpap, sees Dr. Miles - PAD (peripheral artery disease) ([facility]) 2006 [facility] - Presence of combination internal cardiac defibrillator (ICD) and pacemaker - RBBB (right bundle branch block) - Valvular heart disease ALLERGIES Allergen Reactions - Penicillins Unknown - Tramadol Rash, Itching Medication List Medication Directions Comments Action/Plan aspirin, enteric coated (ASPIRIN, ENTERIC COATED) 81 mg EC tablet Take 1 tablet by mouth once daily. taking atorvastatin (LIPITOR) 40 mg tablet Take 1 tablet by mouth daily at bedtime. For cholesterol. taking bisacodyl EC (DULCOLAX, BISACODYL,) 5 mg EC tablet Take 1 tablet by mouth as directed. Take two (2) the first day of the prep, as explained on the instruction sheet provided. blood sugar diagnostic (HallspotTOUCH ULTRA TEST) test strip Test blood sugar(s) 3 times daily. Dx: Type 2 DM - Uncontrolled E11.65 Insulin: no Blood-Glucose Meter monitoring kit Pt testing twice daily and pt dx. dm2 carvedilol (COREG) 6.25 mg tablet Take 0.5 tablets by mouth twice daily with meals. Hold antihypertensives for SBP <100. Hold betablockers for HR <60 taking clopidogrel 75 mg tablet Take 75 mg by mouth once daily. taking COMPOUNDED PRESCRIPTION Support stockings: 20-30 mmhg, knee high with zipper DX: venous insufficiency CPAP None Entered famotidine 40 mg tablet Take 40 mg by mouth once daily. taking furosemide (LASIX) 80 mg tablet Take 1 tablet by mouth twice daily. taking gabapentin (NEURONTIN) 300 mg capsule TAKE 1 CAPSULE THREE TIMES A DAY taking insulin glargine U-300 conc (TOUJEO SOLOSTAR U-300 INSULIN) 300 unit/mL (1.5 mL) inpn INJECT 70 UNITS SUBCUTANEOUSLY AT BEDTIME taking insulin lispro (HUMALOG KWIKPEN INSULIN) 100 unit/mL inpn Inject 12 Units subcutaneously w MEALS. taking Insulin Syringe-Needle U-100 1 mL 29 syrg Use bid Lancets lancets Test blood sugar(s) 2 daily. Dx: 250.00 Insulin: Yes lisinopril 2.5 mg tablet Take 2.5 mg by mouth once daily. taking magnesium citrate solution Take 148 mL by mouth as directed. Take one bottle the first day of the prep, as explained on the instruction sheet provided to you. nitroglycerin sublingual 0.4 mg SL tablet Dissolve 0.4 mg under the tongue every 5 minutes as needed. OTC PRODUCT DiabetAid capsaicin 0.025% cream, applied to feet daily at bedtime. peg 3350-electrolytes (COLYTE) 240-22.72-6.72 -5.84 gram solution Take 4000 ml as directed. Follow written instructions from the doctor's office. potassium chloride (K-ELIZABETH, KLOR-CON) 20 mEq packet Take 20 mEq by mouth twice daily. taking spironolactone (ALDACTONE) 25 mg tablet Take 25 mg by mouth once daily. taking ULTICARE PEN NEEDLE 31 gauge x 5/16 ndle USE 1 NEEDLE PER DOSE 5 TIMES PER DAY warfarin (COUMADIN) 5 mg tablet Take 5 mg by mouth daily as directed. 5mg M-F, 2.5mg Sa, Sun Rx meds not listed in EPIC: none OTCs: none Herbals: none GLYCEMIC CONTROL: ? Glucometer present at visit: No ? FBGs lower 200s ? Hypoglycemia: denies At home BP: low 100s/70-80s Last 3 Encounter BP Readings: Date: BP: 02/04/2018 100/70 09/28/2017 108/78 09/16/2017 103/72 Wt: 93.9 kg (207 lb) BMI: 34.45 kg/(m2) LABS Lab Results Component Value Date HBA1C 16.1 02/04/2018 HBA1C HbA1c value is greater than 15%, consider possibility of hemoglobin variant interference. 09/03/2017 HBA1C 7.9 05/04/2017 HBA1C 7.1 02/03/2017 CMP: Glucose 404 02/09/2018 BUN 36 02/09/2018 Creatinine 1.57 02/09/2018 1.24 on 09/16/17 Sodium 129 02/09/2018 Potassium 4.6 02/09/2018 Chloride 91 02/09/2018 CO2 24 02/09/2018 Protein, Total 7.3 02/09/2018 Albumin 4.4 02/09/2018 Calcium 9.3 02/09/2018 Alkaline Phosphatase 113 02/09/2018 Bilirubin, Total 1.1 02/09/2018 AST 24 02/09/2018 ALT 23 02/09/2018 GFR 46 Estimated CrCL 56 mL/min (calculated using Ht 65, adjusted Wt 74.5 kg, sCr 1.57 mg/dL, using [place]) Last Lipid Panel Lab Results Component Value Date CHOL 117 01/23/2016 Lab Results Component Value Date HDL 45 05/04/2017 HDL 31 01/23/2016 Lab Results Component Value Date LDL 63 05/04/2017 LDL 59 01/23/2016 Lab Results Component Value Date TG 86 05/04/2017 Albumin/Creat Ratio (mg/g) Date Value 02/04/2018 Not calculated PHARMACOTHERAPY ASSESSMENT/PLAN: 1. Type 2 diabetes mellitus with diabetic neuropathy, unspecified whether terminal make up operator insulin use (HCC) - ICD9: 250.60, 357.2, ICD10: E11.40 A1c goal < 7%, patient is not at goal (16.1% on 02/04). FBGs reported to be improving but not at goal and no PPBG data available. Patient not compliant with Toujeo, would change to Tresiba for longer duration of action but patient just received Toujeo shipment and prefers not to change insulin. Reinforced need for compliance. Will also increase prandial insulin dose as patient reports to be compliant with this, and continuing to increase basal insulin may not have additional benefit (already on 0.74 units/kg). Move prandial insulin to closer to meals for improved effect. Renal fxn reduced, will recheck, appropriate for continued therapy ? INCREASE Humalog to 16 units BID meals (5 min or less prior to meals, instead of 30 min) ? CONTINUE Toujeo 70 units QHS ? Instructed patient to continue checking FBGs, add bedtime BG daily ? Patient demonstrated insulin administration technique which is approrpriate Health Maintenance issues addressed: DILATED RETINAL EXAM due on 01/18/2016 Patient is scheduled to see PCP open access. Patient to return to clinic for PharmD f/u on 04/20. Patient verbalized understanding of instructions. Michaela Bailey, PharmD, BCPS MICHAELA BAILEY, PHARMACIST 03/15/2018 1:30 PM Addendum Twice a day pills - 12 hours apart (does not have to be early in the morning) Humalog 16 units lunch and supper, take it 5 minutes before eating Check sugar when you wake up and bedtime Bring machine glucometer Referring Provider: ALLEN BATRES [[id number]] Allergies As of Date: 03/15/2018 Noted Allergy Reaction PENICILLINS 08/15/2013 16 - Unknown TRAMADOL 03/03/2016 2 - Rash 9 - Itching Date Reviewed: 09/28/2017 Reviewed by: Rivera Dukes RN - Fully Assessed Reason for Visit: Allied Health Visit [5] Cmt: DM initial Primary Visit Diagnosis:Type 2 diabetes mellitus with diabetic neuropathy, unspecified whether snf insulin use (HCC) [E11.40] Order(s):insulin lispro (HUMALOG KWIKPEN INSULIN) 100 unit/mL inpnInject 16 Units subcutaneously w MEALS. Two or three times daily, depending on mealsDisp: 5 PenRfl: 5 Prescriptions as of 03/15/2018 Sig: INSULIN GLARGINE (U-300) CONC* INJECT 70 UNITS SUBCUTANEOUSL* GABAPENTIN 300 MG CAPSULE TAKE 1 CAPSULE THREE TIMES A * FUROSEMIDE 80 MG TABLET Take 1 tablet by mouth twice * SPIRONOLACTONE 25 MG TABLET Take 25 mg by mouth once eder* POTASSIUM CHLORIDE 20 MEQ ORA* Take 20 mEq by mouth twice da* LISINOPRIL 2.5 MG TABLET Take 2.5 mg by mouth once corine* ATORVASTATIN 40 MG TABLET Take 1 tablet by mouth daily * CARVEDILOL 6.25 MG TABLET Take 0.5 tablets by mouth twi* WARFARIN 5 MG TABLET Take 5 mg by mouth daily as d* ASPIRIN 81 MG TABLET,DELAYED * Take 1 tablet by mouth once d* CLOPIDOGREL 75 MG TABLET Take 75 mg by mouth once eder* FAMOTIDINE 40 MG TABLET Take 40 mg by mouth once eder* INSULIN LISPRO (U-100) 100 UN* Inject 16 Units subcutaneousl* LANCETS Test blood sugar(s) 2 daily. * ULTICARE PEN NEEDLE 31 GAUGE * USE 1 NEEDLE PER DOSE 5 TIMES* MAGNESIUM CITRATE ORAL SOLUTI* Take 148 mL by mouth as direc* BISACODYL 5 MG TABLET,DELAYED* Take 1 tablet by mouth as dir* BLOOD SUGAR DIAGNOSTIC STRIPS Test blood sugar(s) 3 times d* PEG 3350 240 GRAM-ELECTROLYTE* Take 4000 ml as directed. Fo* COMPOUNDED PRESCRIPTION Support stockings: 20- 30 mmhg* INSULIN SYRINGE-NEEDLE U-100 * Use bid OTC PRODUCT DiabetAid capsaicin 0.025% cr* BLOOD-GLUCOSE METER KIT Pt testing twice daily and pt* CPAP NITROGLYCERIN 0.4 MG SUBLINGU* Dissolve 0.4 mg under the ton* Problem List As Of Date 03/15/2018 Noted Resolved Diabetes [E11.9] 04/12/2015 Priority: C More... Cardiac defibrillator in place [Z95.810] INVALID FOR* Priority: C More... Hypertension [I10] Priority: C More... Mini stroke [I63.9] Heart attack [I21.9] 04/28/2017 Sleep apnea [G47.30] More... Hyperlipidemia [E78.5] Neuropathy [G62.9] Apical mural thrombus [I51.3] More... Cerebral infarction (HCC) [I63.9] More... PAD (peripheral artery disease) [I73.9] More... 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 Urinary retention [R33.9] INVALID FOR*04/28/2017 Priority: B More... SUMMARY [V999.95] INVALID FOR*10/02/2016 Priority: Very Severe More... Diabetes mellitus with neuropathy (HCC) [E11.40]INVALID FOR*04/12/2015 Type 2 diabetes mellitus with diabetic neuropat*INVALID FOR* Renal insufficiency [N28.9] INVALID FOR* Atrial fibrillation (HCC) [I48.91] INVALID FOR* Other instructions from your clinician: Twice a day pills - 12 hours apart (does not have to be early in the morning) Humalog 16 units lunch and supper, take it 5 minutes before eating Check sugar when you wake up and bedtime Bring machine glucometer Prescriptions ordered this encounter Disp Refills Start End INSULIN LISPRO (U-100) 100 UNIT/ML S* 5 Pen 5 03/15/2018 Route: SUBCUTANEOUS Sig: Inject 16 Units subcutaneously w MEALS. Two or three times daily, depending on meals Medications Discontinued During This Encounter insulin lispro (HUMALOG KWIKPEN INSU* 5 Pen 5 02/10/2018 03/15/2018 Route: SUBCUTANEOUS Sig: Inject 12 Units subcutaneously w MEALS. Disc: Reason for discontinue is not on file. Encounter Status:Closed by LEO (PHARMACIST)MICHAELA on 03/15/18 PROGRESS Observed: 03/09/2018 Status: COMPLETED Source: [place] 1:09 PM [facility] REPOSITORY HNO ID: [id number] Author: Basilia Mckeon) Mercedes Service: (none) Author Type: Registered Nurse Type: Progress Notes Filed: 03/09/2018 3:49 PM Note Text: PRIMARY CARE COORDINATION FOLLOW-UP NOTE Anisa Bunch/JANESSA Eye appt scheduled at [facility] for 03/31 and Jorge A will schedule hospital transportation. Kelton INGRAM will call pt regarding transportation available to pt. Patient identified by name and date of . YES Spoke to patient Summary: TC to RASTA Jules RN, informed of 03/31 at 2:[address] Sneed and hospital transportation will take pt to [facility]. Jorge A will call for hospital transportation for that appt and set reminders for pt. Also informed of appts on 04/05 for Vascular. Jorge A states pt is recovering alcoholic and is very active in AA. States he usually is compliant for 6 months then slacks off for 6 months. States he is less compliant since his a year or two ago. Informed our SW will call Dakotah about the different transportation available. TC to patient, left message to call PCC back Basilia Long RN March 09, 2018 3:33 PM TC to [facility], appt made for Mar.31 at 2:[address] Sneed. States pt can have hospital transportation take him to appts at their office. Discussed pt with , states [facility] usually only offers transportation to medical appts. [facility] [employer] still offers bus passes. Pt can buy a one way, two way, day pass or month pass at a discount. Discussed appt at [facility]. Patient states a Thursday afternoon is best for him and he can drive to [facility] so he wants appt scheduled. Discussed transportation and issues with affording gas. Pt states sometimes he can't afford gas. States he has paper work from [employer] for a bus pass. States he never turned in the paper work because he wasn't sure they were doing bus passes any more. Informed PCC will discuss with and will ask if [facility] Medicaid offers any transportation to MD appts, verbalized agreement. Computer Analyst Supervisor plan for next outreach: Will follow up 2 weeks Signature Basilia Long RN March 09, 2018 PROGRESS Observed: 03/09/2018 Status: COMPLETED Source: [place] 12:47 PM [facility] REPOSITORY O ID: [id number] Author: Basilia (Rn) Mercedes Service: (none) Author Type: Registered Nurse Type: Progress Notes Filed: 03/09/2018 1:31 PM Note Text: PRIMARY CARE COORDINATION FOLLOW-UP NOTE Provider Action/FYI FYI Patient identified by name and date of . YES Spoke to Jorge A [facility] nurse and PSR Summary: Discussed with Kenyatta PSR, upcoming Vascular Lab appts and appt with Dr. Del Angel on 04/05. Informed pt's nurse said pt will not show for morning appts. Can we reschedule appts for later in the day? States she will work on it. TC to [facility], states pt sees Dr. Sneed but they haven't seen pt since 2014. Pt made 5 appts and either cancelled or no showed appts. Last 2 appts he no showed. Informed we are concerned transportation may be an issue. PCC will discuss with NATALY and will call back for appt. TC from Jorge A, nurse, states pt didn't go to his eye exam because it was scheduled in [place]. States he told them pt wasn't going to be able to get to office and to cancel appt. Pt would be able to get to [facility]. PCC will call to schedule appt. Pt prefers late mornings and afternoons, he will not show for mornings Pt has a car but has limited money for gas so sometimes he has difficulty getting to doctors appts. Discussed PCC will check with NATALY regarding if [facility] Medicaid offers transportation or taxi vouchers for medical appts. Jorge A states pt is illiterate so he has trouble keeping appts. Jorge A often utilizes a calendar and alarms on patient's cell phone as reminders of appts. Asked if patient is taking his mealtime insulin as well as Lantus. Jorge A states pt never eats breakfast so he only eats 2 meals and he thinks pt is taking his mealtime insulin. States pt has times where he is more compliant and times he's less compliant and Jorge A feels pt is in one of his less compliant times. States pt doesn't have enough money for food and often cupboards a fairly empty. [facility] NATALY visited patient and gave him info on food pantries. Also discussed MOW but pt owed them money. Jorge A will visit patient tomorrow. Discussed PCP nurse was concerned pt may be depressed. Jorge A states he was going to have his health partner do a PHQI to check for depression. Computer Analyst Supervisor plan for next outreach: Will follow up as scheduled Signature Basilia Long RN March 09, 2018 MARLIN Observed: 03/09/2018 Status: COMPLETED Source: [place] 12:00 AM [facility] REPOSITORY Patient Outreach (FAMPWS) DAKOTAH PRATT JR ([id number]) 1960 M Date Time Provider Department 03/09/18 BASILIA LONG (RN) TIFFANYWS During your visit today, we recorded the following information about you: Basilia Long RN 03/09/2018 1:31 PM Addendum PRIMARY CARE COORDINATION FOLLOW-UP NOTE Provider Action/FYI FYI Patient identified by name and date of . YES Spoke to Jorge A [facility] nurse and PSR Summary: Discussed with Kenyatta CAMERONR, upcoming Vascular Lab appts and appt with Dr. Del Angel on 04/05. Informed pt's nurse said pt will not show for morning appts. Can we reschedule appts for later in the day? States she will work on it. TC to [facility], states pt sees Dr. Sneed but they haven't seen pt since 2014. Pt made 5 appts and either cancelled or no showed appts. Last 2 appts he no showed. Informed we are concerned transportation may be an issue. PCC will discuss with SW and will call back for appt. TC from Jorge A nurse, states pt didn't go to his eye exam because it was scheduled in [place]. States he told them pt wasn't going to be able to get to office and to cancel appt. Pt would be able to get to [facility]. PCC will call to schedule appt. Pt prefers late mornings and afternoons, he will not show for mornings Pt has a car but has limited money for gas so sometimes he has difficulty getting to doctors appts. Discussed PCC will check with SW regarding if [employer] Medicaid offers transportation or taxi vouchers for medical appts. Jorge A states pt is illiterate so he has trouble keeping appts. Jorge A often utilizes a calendar and alarms on patient's cell phone as reminders of appts. Asked if patient is taking his mealtime insulin as well as Lantus. Jorge A states pt never eats breakfast so he only eats 2 meals and he thinks pt is taking his mealtime insulin. States pt has times where he is more compliant and times he's less compliant and Jorge A feels pt is in one of his less compliant times. States pt doesn't have enough money for food and often cupboards a fairly empty. RASTA INGRAM visited patient and gave him info on food pantries. Also discussed MOW but pt owed them money. Jorge A will visit patient tomorrow. Discussed PCP nurse was concerned pt may be depressed. Jorge A states he was going to have his health partner do a PHQI to check for depression. Computer Analyst Supervisor plan for next outreach: Will follow up as scheduled Signature Basilia Long RN March 09, 2018 Basilia Long RN 03/09/2018 3:49 PM Signed PRIMARY CARE COORDINATION FOLLOW-UP NOTE Provider Action/FYI Eye appt scheduled at [facility] for 03/31 and Jorge A will schedule hospital transportation. Kelton INGRAM will call pt regarding transportation available to pt. Patient identified by name and date of . YES Spoke to patient Summary: TC to RASTA Jules RN, informed of 03/31 at 2:[address] Sneed and hospital transportation will take pt to [facility]. Jorge A will call for hospital transportation for that appt and set reminders for pt. Also informed of appts on 04/05 for Vascular. Jorge A states pt is recovering alcoholic and is very active in AA. States he usually is compliant for 6 months then slacks off for 6 months. States he is less compliant since his a year or two ago. Informed our SW will call Dakotah about the different transportation available. TC to patient, left message to call PCC back Basilia Long RN March 09, 2018 3:33 PM TC to [facility], appt made for Mar.31 at 2:[address] Sneed. States pt can have hospital transportation take him to appts at their office. Discussed pt with SW, states [facility] usually only offers transportation to medical appts. States [employer] still offers bus passes. Pt can buy a one way, two way, day pass or month pass at a discount. Discussed appt at [facility]. Patient states a Thursday afternoon is best for him and he can drive to [facility] so he wants appt scheduled. Discussed transportation and issues with affording gas. Pt states sometimes he can't afford gas. States he has paper work from [employer] for a bus pass. States he never turned in the paper work because he wasn't sure they were doing bus passes any more. Informed PCC will discuss with SW and will ask if [facility] Medicaid offers any transportation to MD appts, verbalized agreement. 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 * FUROSEMIDE 80 MG TABLET Take 1 tablet by mouth twice * ULTICARE PEN NEEDLE 31 GAUGE * USE 1 NEEDLE PER DOSE 5 TIMES* MAGNESIUM CITRATE ORAL SOLUTI* Take 148 mL by mouth as direc* BISACODYL 5 MG TABLET,DELAYED* Take 1 tablet by mouth as dir* BLOOD SUGAR DIAGNOSTIC STRIPS Test blood sugar(s) 3 times d* SPIRONOLACTONE 25 MG TABLET Take 25 mg by mouth once eder* POTASSIUM CHLORIDE 20 MEQ ORA* Take 20 mEq by mouth twice da* LISINOPRIL 2.5 MG TABLET Take 2.5 mg by mouth once corine* ATORVASTATIN 40 MG TABLET Take 1 tablet by mouth daily * CARVEDILOL 6.25 MG TABLET Take 0.5 tablets by mouth twi* WARFARIN 5 MG TABLET Take 5 mg by mouth daily as d* PEG 3350 240 GRAM-ELECTROLYTE* Take 4000 ml as directed. Fo* ASPIRIN 81 MG TABLET,DELAYED * Take 1 tablet by mouth once d* COMPOUNDED PRESCRIPTION Support stockings: 20- 30 mmhg* INSULIN SYRINGE-NEEDLE U-100 * Use bid OTC PRODUCT DiabetAid capsaicin 0.025% cr* BLOOD-GLUCOSE METER KIT Pt testing twice daily and pt* CPAP CLOPIDOGREL 75 MG TABLET Take 75 mg by mouth once eder* FAMOTIDINE 40 MG TABLET Take 40 mg by mouth once eder* NITROGLYCERIN 0.4 MG SUBLINGU* Dissolve 0.4 mg under the ton* Problem List As Of Date 03/09/2018 Noted Resolved Diabetes [E11.9] 04/12/2015 Priority: C More... Cardiac defibrillator in place [Z95.810] INVALID FOR* Priority: C More... Hypertension [I10] Priority: C More... Mini stroke [I63.9] Heart attack [I21.9] 04/28/2017 Sleep apnea [G47.30] More... Hyperlipidemia [E78.5] Neuropathy [G62.9] Apical mural thrombus [I51.3] More... Cerebral infarction (HCC) [I63.9] More... PAD (peripheral artery disease) [I73.9] More... 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 Urinary retention [R33.9] INVALID FOR*04/28/2017 Priority: B More... SUMMARY [V999.95] INVALID FOR*10/02/2016 Priority: Very Severe More... Diabetes mellitus with neuropathy (HCC) [E11.40]INVALID FOR*04/12/2015 Type 2 diabetes mellitus with diabetic neuropat*INVALID FOR* Renal insufficiency [N28.9] INVALID FOR* Atrial fibrillation (HCC) [I48.91] INVALID FOR* Encounter Status:Closed by BASILIA LONG on 03/10/18 PROGRESS Observed: 03/03/2018 Status: COMPLETED Source: [place] 8:58 AM [facility] REPOSITORY HNO ID: [id number] Author: Basilia Mckeon) Mercedes Service: (none) Author Type: Registered Nurse Type: Progress Notes Filed: 03/09/2018 12:43 PM Note Text: PRIMARY CARE COORDINATION FOLLOW-UP NOTE Provider Action/FYI FYI Patient identified by name and date of . YES Summary: TC to Jorge A nurse at [facility], left message asking to call PCC back regarding no show appt for eye exam and concern of transportation issues. Also to discuss meal time insulin. Basilia Long RN TC to Jorge A [facility], left message to please call PCC back. Basilia Long RN March 03, 2018 8:57 AM Concerns: Discussed pt with Adrián, PCP nurse, patient is in need of coordination of care. Has [facility], nurse Jorge A. Pt didn't show for his eye exam, concerned pt is having transportation problems. Pt has mealtime insulin along with his Lantus, concerned pt may not be taking the mealtime. Also staff and Jorge A are concerned pt may be depressed and Jorge A was going to assess for depression. Computer Analyst Supervisor plan for next outreach: Will follow up next week Signature Basilia Long RN March 03, 2018 CNPTOUTREACH Observed: 03/03/2018 Status: COMPLETED Source: [place] 12:00 AM [facility] REPOSITORY Patient Outreach (FAMPWS) DAKOTAH PRATT JR ([id number]) 1960 M Date Time Provider Department 03/03/18 BASILIA LONG) TIFFANYWS During your visit today, we recorded the following information about you: Basilia Long RN 03/09/2018 12:43 PM Addendum PRIMARY CARE COORDINATION FOLLOW-UP NOTE Provider Action/FYI FYI Patient identified by name and date of . YES Summary: TC to Jorge A nurse at [facility], left message asking to call PCC back regarding no show appt for eye exam and concern of transportation issues. Also to discuss meal time insulin. Basilia Long RN TC to RASTA Jules, left message to please call PCC back. Basilia Long RN March 03, 2018 8:57 AM Concerns: Discussed pt with Adrián, PCP nurse, patient is in need of coordination of care. Has [facility], nurse Jorge A. Pt didn't show for his eye exam, concerned pt is having transportation problems. Pt has mealtime insulin along with his Lantus, concerned pt may not be taking the mealtime. Also staff and Jorge A are concerned pt may be depressed and Jorge A was going to assess for depression. 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 * FUROSEMIDE 80 MG TABLET Take 1 tablet by mouth twice * ULTICARE PEN NEEDLE 31 GAUGE * USE 1 NEEDLE PER DOSE 5 TIMES* MAGNESIUM CITRATE ORAL SOLUTI* Take 148 mL by mouth as direc* BISACODYL 5 MG TABLET,DELAYED* Take 1 tablet by mouth as dir* BLOOD SUGAR DIAGNOSTIC STRIPS Test blood sugar(s) 3 times d* SPIRONOLACTONE 25 MG TABLET Take 25 mg by mouth once eder* POTASSIUM CHLORIDE 20 MEQ ORA* Take 20 mEq by mouth twice da* LISINOPRIL 2.5 MG TABLET Take 2.5 mg by mouth once corine* ATORVASTATIN 40 MG TABLET Take 1 tablet by mouth daily * CARVEDILOL 6.25 MG TABLET Take 0.5 tablets by mouth twi* WARFARIN 5 MG TABLET Take 5 mg by mouth daily as d* PEG 3350 240 GRAM-ELECTROLYTE* Take 4000 ml as directed. Fo* ASPIRIN 81 MG TABLET,DELAYED * Take 1 tablet by mouth once d* COMPOUNDED PRESCRIPTION Support stockings: 20- 30 mmhg* INSULIN SYRINGE-NEEDLE U-100 * Use bid OTC PRODUCT DiabetAid capsaicin 0.025% cr* BLOOD-GLUCOSE METER KIT Pt testing twice daily and pt* CPAP CLOPIDOGREL 75 MG TABLET Take 75 mg by mouth once eder* FAMOTIDINE 40 MG TABLET Take 40 mg by mouth once eder* NITROGLYCERIN 0.4 MG SUBLINGU* Dissolve 0.4 mg under the ton* Problem List As Of Date 03/03/2018 Noted Resolved Diabetes [E11.9] 04/12/2015 Priority: C More... Cardiac defibrillator in place [Z95.810] INVALID FOR* Priority: C More... Hypertension [I10] Priority: C More... Mini stroke [I63.9] Heart attack [I21.9] 04/28/2017 Sleep apnea [G47.30] More... Hyperlipidemia [E78.5] Neuropathy [G62.9] Apical mural thrombus [I51.3] More... Cerebral infarction (HCC) [I63.9] More... PAD (peripheral artery disease) [I73.9] More... 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 Urinary retention [R33.9] INVALID FOR*04/28/2017 Priority: B More... SUMMARY [V999.95] INVALID FOR*10/02/2016 Priority: Very Severe More... Diabetes mellitus with neuropathy (HCC) [E11.40]INVALID FOR*04/12/2015 Type 2 diabetes mellitus with diabetic neuropat*INVALID FOR* Renal insufficiency [N28.9] INVALID FOR* Atrial fibrillation (HCC) [I48.91] INVALID FOR* Encounter Status:Closed by BASILIA LONG on 03/09/18 CBC AND DIFFERENTIAL Collected: 02/09/2018 Status: F Source: [place] 4:42 PM [facility] REPOSITORY TYPE CODE TESTS RESULT OUT OF REFERENCE UNITS RANGE LAB WBC 3.70-11.00 k/uL WBC 6.67 LAB RBC 4.20-6.00 m/uL RBC 5.69 LAB HGB 13.0-17.0 g/dL Hemoglobin 15.6 LAB HCT 39.0-51.0 % Hematocrit 48.3 LAB MCV 80.0-100.0 fL MCV 84.9 LAB MCH 26.0-34.0 pG MCH 27.4 LAB MCHC 30.5-36.0 g/dL MCHC 32.3 LAB RDWCV 11.5-15.0 % RDW-CV 14.5 LAB PLTCT 150-400 k/uL Platelet Count 157 LAB MPV 9.0-12.7 fL MPV 11.6 LAB ANEUT % Neut% 73.8 LAB AANEUT 1.45-7.50 k/uL Abs Neut 4.92 LAB ALYMP % Lymph% 14.4 LAB AALYMP 1.00-4.00 k/uL Low Abs Lymph 0.96 LAB AMONO % Dillingham% 10.5 LAB AAMONO <0.87 k/uL Abs Dillingham 0.70 LAB AEOS % Eosin% 0.9 LAB AAEOS <0.46 k/uL Abs Eosin 0.06 LAB ABASO % Baso% 0.4 LAB AABASO <0.11 k/uL Abs Baso 0.03 LAB AUNRBC 0 /100 WBC NRBCs 0.0 LAB ABNRBC <0.01 k/uL Absolute nRBC <0.01 LAB DTYP DTYPE Auto Diff Performed By: #### CBCDIF, CMP, TSH #### [facility] [address] [place] [id number] COMP METABOLIC PANEL Collected: 02/09/2018 Status: F Source: [place] 4:42 PM [facility] REPOSITORY TYPE CODE TESTS RESULT OUT OF REFERENCE UNITS RANGE LAB TP 6.3-8.0 g/dL Protein, Total 7.3 LAB ALB 3.9-4.9 g/dL Albumin 4.4 LAB CA 8.5-10.2 mg/dL Calcium, Total 9.3 LAB TBIL 0.2-1.3 mg/dL Bilirubin, Total 1.1 LAB ALKP 36-108 U/L Alkaline High Phosphatase 113 LAB AST 14-40 U/L AST 24 LAB GLU 74-99 mg/dL Glucose High 404 Result Comment: The [place] [employer] (ADA) provides guidance for cutoff values for fasting glucose and random glucose. The ADA defines fasting as no caloric intake for at least 8 hours. Fas ting plasma glucose results between 100 to 125 mg/dL indicate increased risk for diabetes (prediabetes). Fasting plasma glucose results greater than or equal to 126 mg/dL meet the criteria for diagnosis of diabetes. In the absence of unequivocal hyperglycemia, results should be confirmed by repeat testing. In a patient with classic symptoms of hyperglycemia or hyperglycemic crisis, random plasma glucose results greater than or equal to 200 mg/dL meet the criteria for diagnosis of diabetes. Reference: Standards of Medical Care in Diabetes 2016, [place] [employer]. Diabetes Care. 2016.39(Suppl 1). LAB BUN 9-24 mg/dL BUN High 36 LAB CRET 0.73-1.22 mg/dL Creatinine High 1.57 LAB NA 136-144 mmol/L Low Sodium 129 LAB K 3.7-5.1 mmol/L Potassium 4.6 LAB CL 97-105 mmol/L Low Chloride 91 LAB CO2 22-30 mmol/L CO2 24 LAB AGAP 9-18 mmol/L Anion Gap 14 LAB ALT 10-54 U/L ALT 23 LAB GFRAA eGFR- Amer. 56 LAB GFRNAA . eGFR-All Other Races 46 Result Comment: eGFR (Estimated GFR) Units of measure: mL/min/1.73 meters squared eGFR is derived from the reexpressed MDRD Study equation using the following parameters: serum creatinine, age, gender and race. The creatinine assay has been calibrated to be traceable to IDMS. An eGFR <60 mL/min/1.73m2 for >3 months is consistent with chronic kidney disease. Refer to KDOQI guidelines for clinical interpretation. In patients with unstable renal function, e.g. those with acute kidney injury, the eGFR may not accurately reflect actual GFR. Performed By: #### CBCDIF, CMP, TSH #### [facility] [address] [place], [place] [address] TSH Collected: 02/09/2018 Status: F Source: [place] 4:42 PM [facility] REPOSITORY TYPE CODE TESTS RESULT OUT OF RANGE REFERENCE UNITS LAB TSH 0.400-5.500 uU/mL TSH 0.882 Performed By: #### CBCDIF, CMP, TSH #### [facility] [address] [place], [place] [address] PACEMAKER CHECK Observed: 02/06/2018 Status: F Source: [place] 2:06 PM [facility] REPOSITORY [facility] [address] [place] [address] Pacemaker Check Date of Service: 02/04/181739 MR#: [id number] Acct: [id number] Name: DAKOTAH PRATT Rep #: [id number] : 1960 From: Chrissie Verdugo Age/Sex: 57/M Location: [facility] Status: Signed Billing Codes ICD Device Billing: ICD Dev Prog Melina Diop 02/04/181741 <Electronically signed by Chrissie Verdugo > Date Chrissie Verdugo 02/06/18 1406<Electronically signed by Keven Willingham MD> Cosigner Signature: Date (if applicable) Keven Willingham MD CC: PROGRESS Observed: 02/04/2018 Status: COMPLETED Source: [place] 5:31 PM [facility] [place] REPOSITORY [facility] ID: [id number] Author: Allen Batres Service: (none) Author Type: Physician Type: Progress Notes Filed: 02/05/2018 4:51 PM Note Text: Patient presents with: Diabetes: follow up Imm/Inj: Flu Vaccine HPI: Patient presents today for office visit for follow up. DM: just did labs. Was not taking his insulin reguarly for four months. Back on it again. Sugars ranging from 230-441. Discussed the fact that uncontrolled sugars will result in complications including , loss of limb, vision, kidneys etc. Reiterated need for complications. He promises me he will work with us. He missed his appt with the pharmacist. 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 He promised me he will work on his meds and diet. CAD:just saw cardiology. No chest pain or shortness of breath. No edema. A fib:no chest pain or palpitations. Neuropathy:remains on meds for his neuropathy. PAD:he is seeing Dr. Del Angel. JUAN DIEGO:still wearing cpap. Feeling fatigue. Not sure if it helps. Anticoag:no bleeding issues. Denies depression. MEDICATIONS: Current Outpatient Prescriptions: gabapentin (NEURONTIN) 300 mg capsule TAKE 1 CAPSULE THREE TIMES A DAY furosemide (LASIX) 80 mg tablet Take 1 tablet by mouth twice daily. insulin glargine (TOUJEO SOLOSTAR) 300 unit/mL (1.5 mL) inpn INJECT 70 UNITS SUBCUTANEOUSLY AT BEDTIME Insulin Lispro, Human, (HUMALOG KWIKPEN) 100 unit/mL inpn Inject 12 Units subcutaneously w MEALS. spironolactone (ALDACTONE) 25 mg tablet Take 25 mg by mouth once daily. potassium chloride (K-ELIZABETH, KLOR-CON) 20 mEq packet Take 20 mEq by mouth twice daily. lisinopril 2.5 mg tablet Take 2.5 mg by mouth once daily. atorvastatin (LIPITOR) 40 mg tablet Take 1 tablet by mouth daily at bedtime. For cholesterol. carvedilol (COREG) 6.25 mg tablet Take 0.5 tablets by mouth twice daily with meals. Hold antihypertensives for SBP <100. Hold betablockers for HR <60 warfarin (COUMADIN) 5 mg tablet Take 5 mg by mouth daily as directed. aspirin, enteric coated (ASPIRIN, ENTERIC COATED) 81 mg EC tablet Take 1 tablet by mouth once daily. CPAP clopidogrel 75 mg tablet Take 75 mg by mouth once daily. famotidine 40 mg tablet Take 40 mg by mouth once daily. Lancets lancets Test blood sugar(s) 2 daily. Dx: 250.00 Insulin: Yes ULTICARE PEN NEEDLE 31 gauge x 10/07 ndle USE 1 NEEDLE PER DOSE 5 TIMES PER DAY magnesium citrate solution Take 148 mL by mouth as directed. Take one bottle the first day of the prep, as explained on the instruction sheet provided to you. bisacodyl EC (DULCOLAX, BISACODYL,) 5 mg EC tablet Take 1 tablet by mouth as directed. Take two (2) the first day of the prep, as explained on the instruction sheet provided. blood sugar diagnostic (ONETOUCH ULTRA TEST) test strip Test blood sugar(s) 3 times daily. Dx: Type 2 DM - Uncontrolled E11.65 Insulin: no peg 3350-electrolytes (COLYTE) 240-22.72-6.72 -5.84 gram solution Take 4000 ml as directed. Follow written instructions from the doctor's office. COMPOUNDED PRESCRIPTION Support stockings: 20-30 mmhg, knee high with zipperDX: venous insufficiency Insulin Syringe-Needle U-100 1 mL 29 syrg Use bid OTC PRODUCT DiabetAid capsaicin 0.025% cream, applied to feet daily at bedtime. Blood-Glucose Meter monitoring kit Pt testing twice daily and pt dx. dm2 nitroglycerin sublingual 0.4 mg SL tablet Dissolve 0.4 mg under the tongue every 5 minutes as needed. No current facility-administered medications for this visit. ALLERGIES: ALLERGIES Allergen Reactions - Penicillins Unknown - Tramadol Rash, Itching PAST MEDICAL HISTORY Diagnosis Date - Alcoholism in remission ([facility]) - Apical mural thrombus coumadin per Dr. Willingham - Atrial fibrillation ([facility]) anticoagulation per cardiology - Cardiac defibrillator in place 12/2010 Dr. Willingham - Carotid artery disease ([facility]) biltaer ICA 20-39% stenosis on 05/11/13 - CHF (congestive heart failure) ([facility]) - CVA (cerebral infarction) x 2 - Diabetes ([facility]) type 2 - Heart attack ([facility]) 2009 - History of coronary artery stent placement 05/29/09 LAD, Diag - Hyperlipidemia - Hypertension - Mini stroke ([facility]) 2009 - Neuropathy ([facility]) sees Dr. Arnold - Obstructive sleep apnea on CPAP uses cpap, sees Dr. Miles - PAD (peripheral artery disease) ([facility]) 2006 [facility] - Presence of combination internal cardiac defibrillator (ICD) and pacemaker - RBBB (right bundle branch block) - Valvular heart disease PAST SURGICAL HISTORY Procedure Laterality Date - ARTERY BYPASS 2006 bilateral legs at [facility], [place] - DRAIN FINGER ABSCESS COMPL Right 02/29/2016 I AND D right middle finger - PAST SURGICAL HISTORY OF 05/29/09 stent LAD, Diag - PAST SURGICAL HISTORY OF AV chris ablation, pacemaker FAMILY HISTORY Problem Relation Age of Onset - Cancer Mother lung - Heart Father - Hypertension Brother Social History Marital status: Spouse name: Years of education: Number of children: 0 Social History Main Topics Smoking status: Former Smoker Packs/day: 0.00 Years: 0.00 Smokeless tobacco: Never Used Alcohol use: No Comment: recovered alcoholic (15years) Drug use: No Comment: 15 years ago Sexual activity: No Reviewed current medications, allergies, past medical history, surgical history, family history and social history today. REVIEW OF SYSTEMS All other reviewed and negative other than HPI. HEALTH MAINTENANCE: Reviewed health maintenance issues today and recommended the following in detail. DTAP,TDAP,TD(1 - Tdap) due on 1981 DILATED RETINAL EXAM due on 01/18/2016 DIABETIC FOOT EXAM due on 01/07/2018 INFLUENZA(1) due on 01/23/2018 VITALS: Pulse 68 Wt 93.9 kg (207 lb) BMI 34.45 kg/m? Last 4 Encounter Wt Readings: Date: Wt: 02/04/2018 93.9 kg (207 lb) 09/16/2017 94.8 kg (209 lb) 09/03/2017 94.3 kg (208 lb) 04/28/2017 91.2 kg (201 lb) PHYSICAL EXAMINATION: General appearance: Well appearing, alert, in no acute distress, well-hydrated, well nourished. Skin: Skin color, texture, turgor normal, no suspicious rashes or lesions Head: Normocephalic, no masses, lesions, tenderness or abnormalities Neck: Supple, no adenopathy; thyroid symmetric, normal size, no bruits Lungs: Lungs clear to auscultation. No wheezing, rhonchi, rales Heart: RRR without murmur, gallop, or rubs. No ectopy Abdomen: Normal abdominal exam, Abdomen soft, non-tender. Bowel sounds normal. No masses, organomegaly Extremities: No deformities, edema, skin discoloration, clubbing or cyanosis. Good capillary refill. Musculoskeletal: No joint swelling, deformity, or tenderness ASSESSMENT/PLAN: 1. Diabetes mellitus due to underlying condition, uncontrolled, with hyperglycemia (HCC) - ICD9: 249.81, 790.29, ICD10: E08.65 (primary diagnosis) - await labs. Reinforced need for follow up. - CONSULT TO AMBULATORY CLINIC PHARMACY - CONSULT TO OPHTHALMOLOGY 2. Need for vaccination - ICD9: V05.9, ICD10: Z23 - INFLUENZA VACCINE QUADRIVALENT AGE 3 YRS PLUS + IM 3. Essential hypertension - ICD9: 401.9, ICD10: I10 - good control - Continue current medication(s) - Goal of BP <130/80 4. Renal insufficiency - ICD9: 593.9, ICD10: N28.9 - follow labs. 5. Atrial fibrillation, unspecified type (HCC) - ICD9: 427.31, ICD10: I48.91 - per cardiol 6. Type 2 diabetes mellitus with diabetic neuropathy, with long-term current use of insulin (HCC) - ICD9: 250.60, 357.2, V58.67, ICD10: E11.40, Z79.4 poorly controlled 7. Ischemic cardiomyopathy - ICD9: 414.8, ICD10: I25.5 - as above. 8. Neuropathy (HCC) - ICD9: 355.9, ICD10: G62.9 - stable. 9. Apical mural thrombus - ICD9: 410.10, ICD10: I51.3 - cohtinue meds. 10. Hyperlipidemia, unspecified hyperlipidemia type - ICD9: 272.4, ICD10: E78.5 - to be determined upon return of lab results - Continue current medication. 11. Sleep apnea, unspecified type - ICD9: 780.57, ICD10: G47.30 - use cpap 12. PAD (peripheral artery disease) - ICD9: 443.9, ICD10: I73.9 - follow with vascular. 13. Alcoholism in remission (HCC) - ICD9: 303.93, ICD10: F10.21 - remains stable. 14. Stenosis of carotid artery, unspecified laterality - ICD9: 433.10, ICD10: I65.29 - per vascular. 15. Fatigue, unspecified type - ICD9: 780.79, ICD10: R53.83 - check labs. - CBC + DIFF - COMP METABOLIC PANEL - TSH BLD Allen Batres MD RTO in six weeks and prn. PROGRESS Observed: 02/04/2018 Status: COMPLETED Source: [place] 5:04 PM [facility] [place] REPOSITORY [facility] ID: [id number] Author: Shavon Norris Ma Service: (none) Author Type: (none) Type: Progress Notes Filed: 02/05/2018 4:51 PM Note Text: Influenza Vaccine Documentation: ? Patient is identified by name and date of : Yes ? Patient is older than 6 months of age: Yes ? Patient denies a severe allergy to any vaccine component or to a previous dose of influenza vaccine: Yes FOR EGG ALLERGY CONCERNS, REFER TO PROVIDER. ? Denies allergy to gelatin, formaldehyde, thimerosol :Yes ? Patient is afebrile and not moderately or severely ill: Yes ? Does the patient have a history of Guillain ?Monkton Syndrome (a severe paralytic illness): No ? Denies bone marrow transplant prior 6 months or solid organ transplant prior 3 months: Yes ? Denies a history of fainting after a prior injection or medical procedure? Yes If patient has fainted in the past, the CDC recommends sitting or lying down for 15 minutes after the vaccination. ? VIS sheet provided: Yes ? See Immunization Form in [facility] for details of immunizations administered today. If patient reports dizziness, vision changes or ringing in the ears post vaccination ? please have patient sit or lie down for 15 minutes. ALBUMIN/CREAT RATIO Collected: 02/04/2018 Status: F Source: [place] 4:41 PM [facility] REPOSITORY TYPE CODE TESTS RESULT OUT OF REFERENCE UNITS RANGE LAB UCRR 20-300 mg/dL 29.1 Creatinine,Ur ine,Ran LAB UALBR 0.0-23.0 mg/L <12.0 Albumin Urine Random LAB UALBCR 0-30 mg/g Not Albumin/Creat calculated Ratio Performed By: #### UACR #### [facility] [address] [place], [place] [address] CNOV Observed: 02/04/2018 Status: COMPLETED Source: [place] 4:40 PM [facility] REPOSITORY Office Visit (FAMPWS) DAKOTAH PRATT JR ([id number]) 1960 M Date Time Provider Department 02/04/18 4:40 PM ALLEN BATRES FAMPWS During your visit today, we recorded the following information about you: Pulse Blood pressure Weight 68/minute 100/70 93.9 kg Shavon Myrna Allen 02/04/2018 5:13 PM Signed DM: Taking insulin again for the last 3 days Medication side effects: No. Home sugar checks: averaging around 235 Hypoglycemic spells: No. Watching diet: No, on a meal assistance plan and eats what is given to him. Unexpected weight loss: No. Polyuria, polydipsia: Yes. Vision Changes: Yes, still needs to get eye exam at [facility]. Foot lesions or numbness or pain: No. Shavon Bowerjeet Allen 02/05/2018 4:51 PM Signed Influenza Vaccine Documentation: ? Patient is identified by name and date of : Yes ? Patient is older than 6 months of age: Yes ? Patient denies a severe allergy to any vaccine component or to a previous dose of influenza vaccine: Yes FOR EGG ALLERGY CONCERNS, REFER TO PROVIDER. ? Denies allergy to gelatin, formaldehyde, thimerosol :Yes ? Patient is afebrile and not moderately or severely ill: Yes ? Does the patient have a history of Guillain ?Monkton Syndrome (a severe paralytic illness): No ? Denies bone marrow transplant prior 6 months or solid organ transplant prior 3 months: Yes ? Denies a history of fainting after a prior injection or medical procedure? Yes If patient has fainted in the past, the CDC recommends sitting or lying down for 15 minutes after the vaccination. ? VIS sheet provided: Yes ? See Immunization Form in [facility] for details of immunizations administered today. If patient reports dizziness, vision changes or ringing in the ears post vaccination ? please have patient sit or lie down for 15 minutes. Allen Batres MD 02/05/2018 4:51 PM Signed Patient presents with: Diabetes: follow up Imm/Inj: Flu Vaccine HPI: Patient presents today for office visit for follow up. DM: just did labs. Was not taking his insulin reguarly for four months. Back on it again. Sugars ranging from 230-441. Discussed the fact that uncontrolled sugars will result in complications including , loss of limb, vision, kidneys etc. Reiterated need for complications. He promises me he will work with us. He missed his appt with the pharmacist. 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 He promised me he will work on his meds and diet. CAD:just saw cardiology. No chest pain or shortness of breath. No edema. A fib:no chest pain or palpitations. Neuropathy:remains on meds for his neuropathy. PAD:he is seeing Dr. Del Angel. JUAN DIEGO:still wearing cpap. Feeling fatigue. Not sure if it helps. Anticoag:no bleeding issues. Denies depression. MEDICATIONS: Current Outpatient Prescriptions: gabapentin (NEURONTIN) 300 mg capsule TAKE 1 CAPSULE THREE TIMES A DAY furosemide (LASIX) 80 mg tablet Take 1 tablet by mouth twice daily. insulin glargine (TOUJEO SOLOSTAR) 300 unit/mL (1.5 mL) inpn INJECT 70 UNITS SUBCUTANEOUSLY AT BEDTIME Insulin Lispro, Human, (HUMALOG KWIKPEN) 100 unit/mL inpn Inject 12 Units subcutaneously w MEALS. spironolactone (ALDACTONE) 25 mg tablet Take 25 mg by mouth once daily. potassium chloride (K-ELIZABETH, KLOR-CON) 20 mEq packet Take 20 mEq by mouth twice daily. lisinopril 2.5 mg tablet Take 2.5 mg by mouth once daily. atorvastatin (LIPITOR) 40 mg tablet Take 1 tablet by mouth daily at bedtime. For cholesterol. carvedilol (COREG) 6.25 mg tablet Take 0.5 tablets by mouth twice daily with meals. Hold antihypertensives for SBP <100. Hold betablockers for HR <60 warfarin (COUMADIN) 5 mg tablet Take 5 mg by mouth daily as directed. aspirin, enteric coated (ASPIRIN, ENTERIC COATED) 81 mg EC tablet Take 1 tablet by mouth once daily. CPAP clopidogrel 75 mg tablet Take 75 mg by mouth once daily. famotidine 40 mg tablet Take 40 mg by mouth once daily. Lancets lancets Test blood sugar(s) 2 daily. Dx: 250.00 Insulin: Yes ULTICARE PEN NEEDLE 31 gauge x 5/16 ndle USE 1 NEEDLE PER DOSE 5 TIMES PER DAY magnesium citrate solution Take 148 mL by mouth as directed. Take one bottle the first day of the prep, as explained on the instruction sheet provided to you. bisacodyl EC (DULCOLAX, BISACODYL,) 5 mg EC tablet Take 1 tablet by mouth as directed. Take two (2) the first day of the prep, as explained on the instruction sheet provided. blood sugar diagnostic (HallspotTOUCH ULTRA TEST) test strip Test blood sugar(s) 3 times daily. Dx: Type 2 DM - Uncontrolled E11.65 Insulin: no peg 3350-electrolytes (COLYTE) 240-22.72-6.72 -5.84 gram solution Take 4000 ml as directed. Follow written instructions from the doctor's office. COMPOUNDED PRESCRIPTION Support stockings: 20-30 mmhg, knee high with zipperDX: venous insufficiency Insulin Syringe-Needle U-100 1 mL 29 syrg Use bid OTC PRODUCT DiabetAid capsaicin 0.025% cream, applied to feet daily at bedtime. Blood-Glucose Meter monitoring kit Pt testing twice daily and pt dx. dm2 nitroglycerin sublingual 0.4 mg SL tablet Dissolve 0.4 mg under the tongue every 5 minutes as needed. No current facility-administered medications for this visit. ALLERGIES: ALLERGIES Allergen Reactions - Penicillins Unknown - Tramadol Rash, Itching PAST MEDICAL HISTORY Diagnosis Date - Alcoholism in remission ([facility]) - Apical mural thrombus coumadin per Dr. Willingham - Atrial fibrillation ([facility]) anticoagulation per cardiology - Cardiac defibrillator in place 12/2010 Dr. Willingham - Carotid artery disease ([facility]) biltaer ICA 20-39% stenosis on 05/11/13 - CHF (congestive heart failure) ([facility]) - CVA (cerebral infarction) x 2 - Diabetes ([facility]) type 2 - Heart attack ([facility]) 2009 - History of coronary artery stent placement 05/29/09 LAD, Diag - Hyperlipidemia - Hypertension - Mini stroke ([facility]) 2009 - Neuropathy ([facility]) sees Dr. Arnold - Obstructive sleep apnea on CPAP uses cpap, sees Dr. Miles - PAD (peripheral artery disease) ([facility]) 2006 [facility] - Presence of combination internal cardiac defibrillator (ICD) and pacemaker - RBBB (right bundle branch block) - Valvular heart disease PAST SURGICAL HISTORY Procedure Laterality Date - ARTERY BYPASS 2006 bilateral legs at [facility] [place] - DRAIN FINGER ABSCESS COMPL Right 02/29/2016 I AND D right middle finger - PAST SURGICAL HISTORY OF 05/29/09 stent LAD, Diag - PAST SURGICAL HISTORY OF AV chris ablation, pacemaker FAMILY HISTORY Problem Relation Age of Onset - Cancer Mother lung - Heart Father - Hypertension Brother Social History Marital status: Spouse name: Years of education: Number of children: 0 Social History Main Topics Smoking status: Former Smoker Packs/day: 0.00 Years: 0.00 Smokeless tobacco: Never Used Alcohol use: No Comment: recovered alcoholic (15years) Drug use: No Comment: 15 years ago Sexual activity: No Reviewed current medications, allergies, past medical history, surgical history, family history and social history today. REVIEW OF SYSTEMS All other reviewed and negative other than HPI. HEALTH MAINTENANCE: Reviewed health maintenance issues today and recommended the following in detail. DTAP,TDAP,TD(1 - Tdap) due on 1981 DILATED RETINAL EXAM due on 01/18/2016 DIABETIC FOOT EXAM due on 01/07/2018 INFLUENZA(1) due on 01/23/2018 VITALS: Pulse 68 Wt 93.9 kg (207 lb) BMI 34.45 kg/m? Last 4 Encounter Wt Readings: Date: Wt: 02/04/2018 93.9 kg (207 lb) 09/16/2017 94.8 kg (209 lb) 09/03/2017 94.3 kg (208 lb) 04/28/2017 91.2 kg (201 lb) PHYSICAL EXAMINATION: General appearance: Well appearing, alert, in no acute distress, well-hydrated, well nourished. Skin: Skin color, texture, turgor normal, no suspicious rashes or lesions Head: Normocephalic, no masses, lesions, tenderness or abnormalities Neck: Supple, no adenopathy; thyroid symmetric, normal size, no bruits Lungs: Lungs clear to auscultation. No wheezing, rhonchi, rales Heart: RRR without murmur, gallop, or rubs. No ectopy Abdomen: Normal abdominal exam, Abdomen soft, non-tender. Bowel sounds normal. No masses, organomegaly Extremities: No deformities, edema, skin discoloration, clubbing or cyanosis. Good capillary refill. Musculoskeletal: No joint swelling, deformity, or tenderness ASSESSMENT/PLAN: 1. Diabetes mellitus due to underlying condition, uncontrolled, with hyperglycemia (HCC) - ICD9: 249.81, 790.29, ICD10: E08.65 (primary diagnosis) - await labs. Reinforced need for follow up. - CONSULT TO AMBULATORY CLINIC PHARMACY - CONSULT TO OPHTHALMOLOGY 2. Need for vaccination - ICD9: V05.9, ICD10: Z23 - INFLUENZA VACCINE QUADRIVALENT AGE 3 YRS PLUS + IM 3. Essential hypertension - ICD9: 401.9, ICD10: I10 - good control - Continue current medication(s) - Goal of BP <130/80 4. Renal insufficiency - ICD9: 593.9, ICD10: N28.9 - follow labs. 5. Atrial fibrillation, unspecified type (HCC) - ICD9: 427.31, ICD10: I48.91 - per cardiol 6. Type 2 diabetes mellitus with diabetic neuropathy, with long-term current use of insulin (HCC) - ICD9: 250.60, 357.2, V58.67, ICD10: E11.40, Z79.4 poorly controlled 7. Ischemic cardiomyopathy - ICD9: 414.8, ICD10: I25.5 - as above. 8. Neuropathy (HCC) - ICD9: 355.9, ICD10: G62.9 - stable. 9. Apical mural thrombus - ICD9: 410.10, ICD10: I51.3 - cohtinue meds. 10. Hyperlipidemia, unspecified hyperlipidemia type - ICD9: 272.4, ICD10: E78.5 - to be determined upon return of lab results - Continue current medication. 11. Sleep apnea, unspecified type - ICD9: 780.57, ICD10: G47.30 - use cpap 12. PAD (peripheral artery disease) - ICD9: 443.9, ICD10: I73.9 - follow with vascular. 13. Alcoholism in remission (HCC) - ICD9: 303.93, ICD10: F10.21 - remains stable. 14. Stenosis of carotid artery, unspecified laterality - ICD9: 433.10, ICD10: I65.29 - per vascular. 15. Fatigue, unspecified type - ICD9: 780.79, ICD10: R53.83 - check labs. - CBC + DIFF - COMP METABOLIC PANEL - TSH BLD Allen Batres MD RTO in six weeks and prn. Allen Batres MD 02/04/2018 5:48 PM Signed Call list of sugars in one week Referring Provider: SELF [200] Allergies As of Date: 02/04/2018 Noted Allergy Reaction PENICILLINS 08/15/2013 16 - Unknown TRAMADOL 03/03/2016 2 - Rash 9 - Itching Date Reviewed: 09/28/2017 Reviewed by: Rivera Dukes RN - Fully Assessed Reason for Visit: Diabetes [34] Cmt: follow up Imm/Inj [58] Cmt: Flu Vaccine Reason For Visit History Recorded Primary Visit Diagnosis:Diabetes mellitus due to underlying condition, uncontrolled, with hyperglycemia ([facility]) [E08.65] Other Visit Diagnoses:Need for vaccination [Z23] Essential hypertension [I10] Renal insufficiency [N28.9] Atrial fibrillation, unspecified type ([facility]) [I48.91] Type 2 diabetes mellitus with diabetic neuropathy, with long-term current use of insulin ([facility]) [E11.40, Z79.4] Ischemic cardiomyopathy [I25.5] Neuropathy ([facility]) [G62.9] Apical mural thrombus [I51.3] Hyperlipidemia, unspecified hyperlipidemia type [E78.5] Sleep apnea, unspecified type [G47.30] PAD (peripheral artery disease) [I73.9] Alcoholism in remission ([facility]) [F10.21] Stenosis of carotid artery, unspecified laterality [I65.29] Fatigue, unspecified type [R53.83] Order(s):INFLUENZA VACCINE QUADRIVALENT AGE 3 YRS PLUS + IM [90065OXE] Order #: [id number] insulin glargine U-300 conc (TOUJEO SOLOSTAR U-300 INSULIN) 300 unit/mL (1.5 mL) inpnINJECT 70 UNITS SUBCUTANEOUSLY AT BEDTIMEDisp: 27 mLRfl: 4 CONSULT TO AMBULATORY CLINIC PHARMACY [701651] Order #: [id number]: 1 CONSULT TO OPHTHALMOLOGY [9024] Order #: [id number]: 1 CBC + DIFF [SQCBCDIF] Order #: [id number] FUTURE COMP METABOLIC PANEL [SQCMP] Order #: [id number] FUTURE TSH BLD [SQTSH] Order #: [id number] FUTURE Prescriptions as of 02/04/2018 Sig: INSULIN GLARGINE (U-300) CONC* INJECT 70 UNITS SUBCUTANEOUSL* GABAPENTIN 300 MG CAPSULE TAKE 1 CAPSULE THREE TIMES A * FUROSEMIDE 80 MG TABLET Take 1 tablet by mouth twice * INSULIN LISPRO (U-100) 100 UN* Inject 12 Units subcutaneousl* SPIRONOLACTONE 25 MG TABLET Take 25 mg by mouth once eder* POTASSIUM CHLORIDE 20 MEQ ORA* Take 20 mEq by mouth twice da* LISINOPRIL 2.5 MG TABLET Take 2.5 mg by mouth once corine* ATORVASTATIN 40 MG TABLET Take 1 tablet by mouth daily * CARVEDILOL 6.25 MG TABLET Take 0.5 tablets by mouth twi* WARFARIN 5 MG TABLET Take 5 mg by mouth daily as d* ASPIRIN 81 MG TABLET,DELAYED * Take 1 tablet by mouth once d* CPAP CLOPIDOGREL 75 MG TABLET Take 75 mg by mouth once eder* FAMOTIDINE 40 MG TABLET Take 40 mg by mouth once eder* LANCETS Test blood sugar(s) 2 daily. * ULTICARE PEN NEEDLE 31 GAUGE * USE 1 NEEDLE PER DOSE 5 TIMES* MAGNESIUM CITRATE ORAL SOLUTI* Take 148 mL by mouth as direc* BISACODYL 5 MG TABLET,DELAYED* Take 1 tablet by mouth as dir* BLOOD SUGAR DIAGNOSTIC STRIPS Test blood sugar(s) 3 times d* PEG 3350 240 GRAM-ELECTROLYTE* Take 4000 ml as directed. Fo* COMPOUNDED PRESCRIPTION Support stockings: 20- 30 mmhg* INSULIN SYRINGE-NEEDLE U-100 * Use bid OTC PRODUCT DiabetAid capsaicin 0.025% cr* BLOOD-GLUCOSE METER KIT Pt testing twice daily and pt* NITROGLYCERIN 0.4 MG SUBLINGU* Dissolve 0.4 mg under the ton* Problem List As Of Date 02/04/2018 Noted Resolved Diabetes [E11.9] 04/12/2015 Priority: C More... Cardiac defibrillator in place [Z95.810] INVALID FOR* Priority: C More... Hypertension [I10] Priority: C More... Mini stroke [I63.9] Heart attack [I21.9] 04/28/2017 Sleep apnea [G47.30] More... Hyperlipidemia [E78.5] Neuropathy [G62.9] Apical mural thrombus [I51.3] More... Cerebral infarction (HCC) [I63.9] More... PAD (peripheral artery disease) [I73.9] More... 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 Urinary retention [R33.9] INVALID FOR*04/28/2017 Priority: B More... SUMMARY [V999.95] INVALID FOR*10/02/2016 Priority: Very Severe More... Diabetes mellitus with neuropathy (HCC) [E11.40]INVALID FOR*04/12/2015 Type 2 diabetes mellitus with diabetic neuropat*INVALID FOR* Renal insufficiency [N28.9] INVALID FOR* Atrial fibrillation (HCC) [I48.91] INVALID FOR* Other instructions from your clinician: Call list of sugars in one week Visit Notes: >> Shavon Norris Ma Jenelle Feb 04, 2018 4:57 PM Status: Signed DM: Taking insulin again for the last 3 days Medication side effects: No. Home sugar checks: averaging around 235 Hypoglycemic spells: No. Watching diet: No, on a meal assistance plan and eats what is given to him. Unexpected weight loss: No. Polyuria, polydipsia: Yes. Vision Changes: Yes, still needs to get eye exam at [facility]. Foot lesions or numbness or pain: No. Prescriptions ordered this encounter Disp Refills Start End INSULIN GLARGINE (U-300) CONC. 300 U* 27 mL 4 02/04/2018 Sig: INJECT 70 UNITS SUBCUTANEOUSLY AT BEDTIME Medications Discontinued During This Encounter insulin glargine (TOUJEO SOLOSTAR) 3* 27 mL 4 02/17/2017 02/04/2018 Sig: INJECT 70 UNITS SUBCUTANEOUSLY AT BEDTIME Disc: Reason for discontinue is not on file. Disposition: Return in about 6 weeks (around 03/18/2018). Follow-up and Disposition History Recorded Encounter Status:Closed by ADRIÁN SAHU LPN on 02/05/18 HEMOGLOBIN A1C Collected: 02/04/2018 Status: F Source: [place] 4:37 PM [facility] [place] REPOSITORY TYPE CODE TESTS RESULT OUT OF REFERENCE UNITS RANGE LAB HGBA1C 4.3-5.6 % High Hemoglobin A1c 16.1 Result Comment: HbA1c value is greater than 15%, consider possibility of hemoglobin variant interference. LAB HBA0 mg/dL Est. Average Glucose 415 Result Comment: eAG: (Estimated average glucose) is a calculated value from HgbA1c and is small business sales representative of the average blood glucose level in the last 2-3 month period. Performed By: #### HBA1C #### [facility] [address] [place], [place] [address] CARDIOLOGY VISIT Observed: 02/04/2018 Status: F Source: [place] REPORT 4:10 PM [facility] REPOSITORY [facility] [address] [place], [place] [address] OFFICE VISIT Date of Service: 02/04/18 MR#: [id number] Acct: [id number] Name: DAKOTAH PRATT Rep #: [id number] : 1960 Provider: Keven Willingham MD Age/Sex: 57/M Location: [facility] Status: Signed HPI HPI Chief Complaint: Follow-up visit Details: DAKOTAH PRATT, is a 57 M who presents to the office today for a follow-up visit. He is a gentleman with a history of ischemic cardiomyopathy coronary artery disease with stenting to the left anterior descending artery and proximal diagonal vessel in 2009. He also has a history of atrial fibrillation status post AV chris ablation and biventricular ICD placement. In addition he has hypertension and peripheral vascular disease. He tells me that he has been doing quite well with no chest pain or shortness breath or paroxysmal nocturnal dyspnea pedal edema his major problem is related to sinus problems. He is not had any defibrillator discharges. He has been compliant with his medications. His blood pressure has been on the low side but he has been asymptomatic. His physical exam today demonstrates clear lung mancuso regular rate and rhythm and no pedal edema. Intake Intake Visit Reasons: 6 M FU (pt r/s from 12-10) Grace @ 3:30 [employer] Operator Required: No Is patient in pain?: No Allergies tramadol Allergy (Verified 09/06/17 21:37) Hives Penicillins Adverse Reaction (Verified 09/06/17 21:37) Nausea Medications Aspirin [Aspirin EC] 81 mg PO DAILY 08/16/16 [History Confirmed 09/07/17] Insulin Glargine,Hum.rec.anlog [Nilsa Dang] 70 unit SQ QHS 08/16/16 [History Confirmed 09/07/17] gabapentin 300 mg capsule 300 mg PO TID cap 06/05/17 [History Confirmed 09/07/17] insulin aspart U-100 100 unit/mL subcutaneous pen 20 unit SC TIDCM ml 06/08/17 [History Confirmed 09/07/17] nitroglycerin 0.4 mg sublingual tablet 0.4 mg SUBLINGUAL Q5- 15M PRN #25 tab 06/08/17 [Rx Confirmed 09/07/17] warfarin 2.5 mg tablet 5 mg PO DAILY 06/08/17 [History Confirmed 12/10/17] clopidogrel 75 mg tablet 75 mg PO DAILY #30 tab 06/14/17 [Rx Confirmed 09/07/17] furosemide 80 mg tablet 80 mg PO BID #60 tab 08/11/17 [Rx Confirmed 09/07/17] potassium chloride ER 20 mEq tablet,extended release(part/cryst) 20 meq PO DAILY #30 tab 09/02/17 [Rx Confirmed 09/07/17] Bisacodyl [Dulcolax] 1 tab PO DAILY 09/06/17 [History Confirmed 09/06/17] Famotidine 40 mg PO DAILY 09/06/17 [History Confirmed 09/07/17] Atorvastatin Calcium [Lipitor] 80 mg PO QHS 09/07/17 [History Confirmed 09/07/17] Carvedilol [Coreg] 6.25 mg PO BID 09/07/17 [History Confirmed 09/07/17] Famotidine 40 mg PO DAILY 09/07/17 [History Confirmed 09/07/17] Insulin Detemir [Levemir (BKC)] 35 units SC BID 09/07/17 [History Confirmed 09/07/17] Metformin HCl [Glucophage] 500 mg PO BIDCM 09/07/17 [History Confirmed 09/07/17] Smz/Tmp Ds [Bactrim Ds] 1 tab PO BID 09/07/17 [History Confirmed 09/07/17] Tamsulosin HCl [Flomax] 0.4 mg PO DAILY 09/07/17 [History Confirmed 09/07/17] Tramadol HCl [Ultram] 50 mg PO BID 09/07/17 [History Confirmed 09/07/17] PFS Medical History Mural thrombus of cardiac apex (Chronic) correction 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 (Chronic) ICD (implantable cardioverter-defibrillator), biventricular, in situ (Chronic) Atherosclerosis of hamilton coronary artery of hamilton heart without angina pectoris (Chronic) Diabetes mellitus (Chronic) Obesity (Chronic) Hypertension (Chronic) Benign prostatic hypertrophy (Chronic) COPD (chronic obstructive pulmonary disease) (Chronic) GERD (gastroesophageal reflux disease) (Chronic) [place] (obstructive sleep apnea) (Chronic) AICD (automatic cardioverter/defibrillator) present (Chronic) PAD (peripheral artery disease) (Chronic) Pleural effusion, left (Chronic) HLD (hyperlipidemia) (Chronic) Ischemic cardiomyopathy (Chronic) Hypokalemia (Acute) Hypotension (Acute) Acute on chronic renal failure (Acute) Near syncope (Acute) Systolic CHF, chronic (Chronic) Atrial fibrillation (Chronic) Light headedness (Acute) Chest pain (Acute) Atherosclerosis of hamilton coronary artery of hamilton heart without angina pectoris (Acute) LV apical aneurysm with thrombus (Acute) Surgical History S/P PTCA (percutaneous transluminal coronary angioplasty) (Chronic) H/O atrioventricular chris ablation (Chronic 07/11/15) History of cardiac pacemaker (Chronic 07/11/15) History of cholecystectomy (Chronic) S/P aorto-bifemoral bypass surgery (Chronic 2003) Family History Father Hypertension CAD (coronary artery disease) Sister Cancer Social History Smoking Status: Former smoker alcohol intake: never substance use type: does not use caffeine: No what type of physical activity do you participate in: walking frequency: 1-2 times per week duration: 15-30 minutes/day seatbelt use: always do you feel safe at home: Yes ROS Const Const: Negative for fatigue, weakness, night sweats, excessive sweating, frequent falls, headache(s) or daytime sleepiness Eyes Eyes: Negative for loss of peripheral vision, transient loss of vision, blind spots, double vision or blurry vision ENT ENT: Negative for headache(s), dizziness, balance problems, Nosebleed/epistaxis, tongue swelling or lip swelling Cardio Chest Pain: No Palpitations: No Edema: None Muscle aches with walking: None Resp Respiratory: Negative for SOB at rest, SOB orthopnea\SOB lying down, Cough, paroxysmal nocturnal dyspnea or SOB with activity GI GI: Negative nausea, vomiting, heartburn, black,tarry stools or bright, red blood in stools : Negative for hematuria Musc Musc: Negative for balance problems, muscle aches/ myalgia, muscle weakness or joint pain Skin Skin: Negative non-healing lesions, unusual bruising or rash Neuro Neuro: Negative for weakness, frequent falls, headache(s), double vision, dizziness, lightheadedness, orthostatic symptoms, blurry vision or lack of coordination Eric Hematologic/Lymphatic: Negative for easy bruising or easy bleeding Endo Endo: Negative for fatigue, excessive sweating, cold intolerance, heat intolerance, increased thirst/drinking or hair loss Psych Psych: Negative for anxiety or depression Allergy Allergy/Immunology: Negative for throat swelling, Negative for tongue swelling, Negative for hives, Negative for rash, Negative for lip swelling Cardiology Exam Const Appearance: cooperative, healthy appearing, well developed, well groomed and no acute distress Nutritional Appearance: well nourished and average body habitus Orientation: alert, awake and oriented x3 Head Head: normal to inspection, normocephalic and atraumatic Ears: hearing grossly normal bilaterally and external ears normal Nose: external nose normal, nasal mucous membranes and turbinates normal, nares normal, septum normal, no nasal discharge Face and Sinus: face symmetric Mouth: oral mucosae normal, tongue normal, oropharynx normal and moist mucous membranes Teeth and gingiva: dentition normal Throat: posterior oropharynx normal, tonsils normal and uvula midline Eyes General: appearance normal, both eyes and all related structures Eyelids: eyelids normal Conjunctivae: conjunctivae normal Pupils: PERRL, normal by confrontation and accommodation normal EOM: EOM intact bilaterally Neck Neck: normal visual inspection, trachea midline and no JVD JVD: +5 Carotids: normal carotid upstroke and bounding pulses Chest Chest inspection: normal inspection of the chest, symmetric chest movement and normal respiratory effort Auscultation: Bilateral: Clear to Auscultation Cardio Palpation: normal PMI Rate: regular rate Rhythm: regular rhythm Heart sounds: S1 normal, S2 normal and normal, physiologic split S2; negative rub, gallop or murmur GI GI: normal to inspection, soft, no hepatosplenomegaly and bowel sounds present Neuro General: alert, awake, oriented x3, no focal sensory deficit, gait normal and moves all extremities Skin Skin: no rashes or lesions noted Extremities Pulses: Normal: Right Femoral Pulse, Left Femoral Pulse, Right Dorsalis Pedis Pulse, Left Dorsalis Pedis Pulse, Right Posterior Tibial Pulse, Left Posterior Tibial Pulse, Right Radial Pulse, Left Radial Pulse Lower Extremity Edema: None: Bilateral Musculoskel Musculoskeletal: No joint tenderness Psych Psychological: normal affect Assessment AND Plan 1. Atherosclerosis of hamilton coronary artery of hamilton heart without angina pectoris I25.10 PCI to LAD AND diagonal in 2009; Plan He appears to be doing well from this standpoint. He has had no anginal spells and my recommendation would be for him to continue the same medical therapy without as making any changes. 2. ICD (implantable cardioverter-defibrillator), biventricular, in situ Z95.810 Plan He had his defibrillator interrogated today. He is noted to be in atrial fibrillation and his RV LV paced 100% of the time battery longevity is over 7 years and impedances are noted to be within normal range. No changes will be made. 3. S/P PTCA (percutaneous transluminal coronary angioplasty) Z98.61 Plan He is status post previous percutaneous angioplasty and as noted prior he does not have any angina as and will continue to monitor him on his medications with the beta-ronn LEONIDES inhibitor and diuretic. 4. Pure hypercholesterolemia E78.00; E78.0 Plan He does have a history of hyperlipidemia he remains on the statin routine lipid profiles will be obtained as appropriate. 5. Ischemic cardiomyopathy I25.5 Plan He does have a history of ischemic cardia myopathy with his most recent echocardiogram from July 2016 demonstrating ejection fraction of 30%. He has not had any heart failure symptomatology and he remain on the beta-ronn, LEONIDES inhibitor, diuretic and potassium supplementation. He is ACC stage C in [place] Heart Association class II-III. 6. Chronic atrial fibrillation I48.2 AV Node RFA 07/11/2015 Plan He is status post radiofrequency AV chris ablation. He remains on anticoagulation his most recent INR was noted to be approximately 3.2. No other changes will be made to his regimen. Thank you for allowing me to participate in the care of your patient. Please don't hesitate to call if any issues arise Plan Detail Follow Up 6 Months (soup person) Coding Level of Care Code Off vis,est,level 4 Diagnoses Atherosclerosis of hamilton coronary artery of hamilton heart without angina pectoris I25.10 ICD (implantable cardioverter-defibrillator), biventricular, in situ Z95.810 S/P PTCA (percutaneous transluminal coronary angioplasty) Z98.61 Pure hypercholesterolemia E78.00; E78.0 Hyperlipidemia type: pure hypercholesterolemia Ischemic cardiomyopathy I25.5 Chronic atrial fibrillation I48.2 Atrial fibrillation type: chronic Coding Level of Care Code Off vis,est,level 4 Diagnoses Atherosclerosis of hamilton coronary artery of hamilton heart without angina pectoris I25.10 ICD (implantable cardioverter-defibrillator), biventricular, in situ Z95.810 S/P PTCA (percutaneous transluminal coronary angioplasty) Z98.61 Pure hypercholesterolemia E78.00; E78.0 Hyperlipidemia type: pure hypercholesterolemia Ischemic cardiomyopathy I25.5 Chronic atrial fibrillation I48.2 Atrial fibrillation type: chronic 02/04/18 1610 <Electronically signed by Keven Willingham MD> Date Keven Parkerer Signature: Date (if applicable) CC: Allen Batres MD PROGRESS Observed: 01/18/2018 Status: COMPLETED Source: [place] 10:08 AM [facility] REPOSITORY HNO ID: [id number] Author: Faby Dickens Cma Service: (none) Author Type: (none) Type: Progress Notes Filed: 01/22/2018 9:39 AM Note Text: Patient states he'll be in this Thursday for an open access appointment for DM f/up with labs prior. Please file labs rebeca so patient can get done prior to appointment. Thanks! PROGRESS Observed: 01/18/2018 Status: COMPLETED Source: [place] 10:03 AM [facility] REPOSITORY HNO ID: [id number] Author: Faby Dickens Cma Service: (none) Author Type: (none) Type: Progress Notes Filed: 01/22/2018 9:39 AM Note Text: [facility] GAP REGISTRY DOCUMENTATION (OUTSIDE TEAMLET) Provider Action/FYI: Please file labs PSR Action/FYI: Due for f/up w/labs prior Due for DM retinal exam Patient identified by name and date of . Last BP/Labs: Blood Pressure: Last 3 Encounter BP Readings: Date: BP: 09/28/2017 108/78 09/16/2017 103/72 09/03/2017 96/72 Lipids: Cholesterol, Total (mg/dL) Date Value 01/23/2016 117 03/20/2015 119 HDL Cholesterol (mg/dL) Date Value 01/23/2016 31 03/20/2015 42 HDL (MG/DL) Date Value 05/04/2017 45 LDL Cholesterol (mg/dL) Date Value 01/23/2016 59 03/20/2015 62 LDL (no units) Date Value 05/04/2017 63 Triglyceride Date Value 05/04/2017 86 01/23/2016 137 mg/dL HGB A1C: Lab Results Component Value Date HBA1C HbA1c value is greater than 15%, consider possibility of hemoglobin variant interference. 09/03/2017 HBA1C 7.9 05/04/2017 HBA1C 7.1 02/03/2017 HBA1C 7.2 10/03/2016 HBA1C 7.8 05/07/2016 TSH: TSH (uU/mL) Date Value 10/10/2015 1.910 ) ? Patient has the following care gap registry disease diagnosis:DM ? HTN ? Hyperlipidemia ? Patient has the following open care gaps: Health Maintenance Due: DTAP,TDAP,TD(1 - Tdap) due on 1981 DILATED RETINAL EXAM due on 01/18/2016 URINE ALBUMIN:CREATININE RATIO due on 01/22/2017 - order pending DIABETIC FOOT EXAM due on 01/07/2018 INFLUENZA(1) due on 01/23/2018 ? Last office visit: 09/16/2017 ? Future office visit:Follow-up Dm, HTN, w/labs prior with Provider PCP or psych arnp Faby Dickens Cma CNPTOUTREACH Observed: 01/18/2018 Status: COMPLETED Source: [place] 12:00 AM [facility] REPOSITORY Patient Outreach ([facility]WS) DAKOTAH PRATT JR ([id number]) 1960 M Date Time Provider Department 01/18/18 FABY DICKENS) [facility] During your visit today, we recorded the following information about you: aFby Dickens Cma 01/22/2018 9:39 AM Signed [facility] GAP REGISTRY DOCUMENTATION (OUTSIDE TEAMLET) Provider Action/FYI: Please file labs PSR Action/FYI: Due for f/up w/labs prior Due for DM retinal exam Patient identified by name and date of . Last BP/Labs: Blood Pressure: Last 3 Encounter BP Readings: Date: BP: 09/28/2017 108/78 09/16/2017 103/72 09/03/2017 96/72 Lipids: Cholesterol, Total (mg/dL) Date Value 01/23/2016 117 03/20/2015 119 HDL Cholesterol (mg/dL) Date Value 01/23/2016 31 03/20/2015 42 HDL (MG/DL) Date Value 05/04/2017 45 LDL Cholesterol (mg/dL) Date Value 01/23/2016 59 03/20/2015 62 LDL (no units) Date Value 05/04/2017 63 Triglyceride Date Value 05/04/2017 86 01/23/2016 137 mg/dL HGB A1C: Lab Results Component Value Date HBA1C HbA1c value is greater than 15%, consider possibility of hemoglobin variant interference. 09/03/2017 HBA1C 7.9 05/04/2017 HBA1C 7.1 02/03/2017 HBA1C 7.2 10/03/2016 HBA1C 7.8 05/07/2016 TSH: TSH (uU/mL) Date Value 10/10/2015 1.910 ) ? Patient has the following care gap registry disease diagnosis:DM ? HTN ? Hyperlipidemia ? Patient has the following open care gaps: Health Maintenance Due: DTAP,TDAP,TD(1 - Tdap) due on 1981 DILATED RETINAL EXAM due on 01/18/2016 URINE ALBUMIN:CREATININE RATIO due on 01/22/2017 - order pending DIABETIC FOOT EXAM due on 01/07/2018 INFLUENZA(1) due on 01/23/2018 ? Last office visit: 09/16/2017 ? Future office visit:Follow-up Dm, HTN, w/labs prior with Provider PCP or psych arnp Faby Dickens Cma 01/22/2018 9:39 AM Signed Patient states he'll be in this Thursday for an open access appointment for DM f/up with labs prior. Please file labs rebeca so patient can get done prior to appointment. Thanks! Allergies As of Date: 01/18/2018 Noted Allergy Reaction PENICILLINS 08/15/2013 16 - Unknown TRAMADOL 03/03/2016 2 - Rash 9 - Itching Date Reviewed: 09/28/2017 Reviewed by: Rivera Dukes RN - Fully Assessed Reason for Visit: PHMA/Care Gap Outreach [[id number]] Primary Visit Diagnosis:Type 2 diabetes mellitus with diabetic neuropathy, with long-term current use of insulin (HCC) [E11.40, Z79.4] Order(s):HGB A1C [BDMHE1P] Order #: [id number] FUTURE ALBUMIN/CREAT RATIO RND UR [SQUACR] Order #: [id number] FUTURE Prescriptions as of 01/18/2018 Sig: GABAPENTIN 300 MG CAPSULE TAKE 1 CAPSULE THREE TIMES A * LANCETS Test blood sugar(s) 2 daily. * FUROSEMIDE 80 MG TABLET Take 1 tablet by mouth twice * ULTICARE PEN NEEDLE 31 GAUGE * USE 1 NEEDLE PER DOSE 5 TIMES* INSULIN GLARGINE (U-300) CONC* INJECT 70 UNITS SUBCUTANEOUSL* MAGNESIUM CITRATE ORAL SOLUTI* Take 148 mL by mouth as direc* BISACODYL 5 MG TABLET,DELAYED* Take 1 tablet by mouth as dir* INSULIN LISPRO (U-100) 100 UN* Inject 12 Units subcutaneousl* BLOOD SUGAR DIAGNOSTIC STRIPS Test blood sugar(s) 3 times d* SPIRONOLACTONE 25 MG TABLET Take 25 mg by mouth once eder* POTASSIUM CHLORIDE 20 MEQ ORA* Take 20 mEq by mouth twice da* LISINOPRIL 2.5 MG TABLET Take 2.5 mg by mouth once corine* ATORVASTATIN 40 MG TABLET Take 1 tablet by mouth daily * CARVEDILOL 6.25 MG TABLET Take 0.5 tablets by mouth twi* WARFARIN 5 MG TABLET Take 5 mg by mouth daily as d* PEG 3350 240 GRAM-ELECTROLYTE* Take 4000 ml as directed. Fo* ASPIRIN 81 MG TABLET,DELAYED * Take 1 tablet by mouth once d* COMPOUNDED PRESCRIPTION Support stockings: 20- 30 mmhg* INSULIN SYRINGE-NEEDLE U-100 * Use bid OTC PRODUCT DiabetAid capsaicin 0.025% cr* BLOOD-GLUCOSE METER KIT Pt testing twice daily and pt* CPAP CLOPIDOGREL 75 MG TABLET Take 75 mg by mouth once eder* FAMOTIDINE 40 MG TABLET Take 40 mg by mouth once eder* NITROGLYCERIN 0.4 MG SUBLINGU* Dissolve 0.4 mg under the ton* Problem List As Of Date 01/18/2018 Noted Resolved Diabetes [E11.9] 04/12/2015 Priority: C More... Cardiac defibrillator in place [Z95.810] INVALID FOR* Priority: C More... Hypertension [I10] Priority: C More... Mini stroke [I63.9] Heart attack [I21.9] 04/28/2017 Sleep apnea [G47.30] More... Hyperlipidemia [E78.5] Neuropathy [G62.9] Apical mural thrombus [I51.3] More... Cerebral infarction (HCC) [I63.9] More... PAD (peripheral artery disease) [I73.9] More... 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 Urinary retention [R33.9] INVALID FOR*04/28/2017 Priority: B More... SUMMARY [V999.95] INVALID FOR*10/02/2016 Priority: Very Severe More... Diabetes mellitus with neuropathy (HCC) [E11.40]INVALID FOR*04/12/2015 Type 2 diabetes mellitus with diabetic neuropat*INVALID FOR* Renal insufficiency [N28.9] INVALID FOR* Atrial fibrillation (HCC) [I48.91] INVALID FOR* Encounter Status:Closed by FABY DICKENS CMA on 01/22/18 CARDIOLOGY VISIT Observed: 12/10/2017 Status: F Source: [place] REPORT 4:15 PM [facility] REPOSITORY [facility] [address] [place] [address]. [address] [place] [address] OFFICE VISIT Date of Service: 02/04/18 MR#: [id number] Acct: [id number] Name: DAKOTAH PRATT Rep #: [id number] : 1960 Provider: Keven Willingham MD Age/Sex: 56/M Location: [facility] Status: Signed HPI HPI Details: DAKOTAH PRATT, is a 56 M who presents to the office today for Intake Intake Visit Reasons: 6 M FU (we moved from -) [place] @ 2 Allergies tramadol Allergy (Verified 09/06/17 21:37) Hives Penicillins Adverse Reaction (Verified 09/06/17 21:37) Nausea Medications Aspirin [Aspirin EC] 81 mg PO DAILY 08/16/16 [History Confirmed 09/07/17] Insulin Glargine,Hum.rec.anlog [Nilsa Dang] 70 unit SQ QHS 08/16/16 [History Confirmed 09/07/17] gabapentin 300 mg capsule 300 mg PO TID cap 06/05/17 [History Confirmed 09/07/17] insulin aspart U-100 100 unit/mL subcutaneous pen 20 unit SC TIDCM ml 06/08/17 [History Confirmed 09/07/17] nitroglycerin 0.4 mg sublingual tablet 0.4 mg SUBLINGUAL Q5- 15M PRN #25 tab 06/08/17 [Rx Confirmed 09/07/17] warfarin 2.5 mg tablet 5 mg PO DAILY 06/08/17 [History Confirmed 12/10/17] clopidogrel 75 mg tablet 75 mg PO DAILY #30 tab 06/14/17 [Rx Confirmed 09/07/17] furosemide 80 mg tablet 80 mg PO BID #60 tab 08/11/17 [Rx Confirmed 09/07/17] potassium chloride ER 20 mEq tablet,extended release(part/cryst) 20 meq PO DAILY #30 tab 09/02/17 [Rx Confirmed 09/07/17] Bisacodyl [Dulcolax] 1 tab PO DAILY 09/06/17 [History Confirmed 09/06/17] Famotidine 40 mg PO DAILY 09/06/17 [History Confirmed 09/07/17] Atorvastatin Calcium [Lipitor] 80 mg PO QHS 09/07/17 [History Confirmed 09/07/17] Carvedilol [Coreg] 6.25 mg PO BID 09/07/17 [History Confirmed 09/07/17] Famotidine 40 mg PO DAILY 09/07/17 [History Confirmed 09/07/17] Insulin Detemir [Levemir (BKC)] 35 units SC BID 09/07/17 [History Confirmed 09/07/17] Metformin HCl [Glucophage] 500 mg PO BIDCM 09/07/17 [History Confirmed 09/07/17] Smz/Tmp Ds [Bactrim Ds] 1 tab PO BID 09/07/17 [History Confirmed 09/07/17] Tamsulosin HCl [Flomax] 0.4 mg PO DAILY 09/07/17 [History Confirmed 09/07/17] Tramadol HCl [Ultram] 50 mg PO BID 09/07/17 [History Confirmed 09/07/17] PFSH Medical History Mural thrombus of cardiac apex (Chronic) correction 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 (Chronic) ICD (implantable cardioverter-defibrillator), biventricular, in situ (Chronic) Atherosclerosis of hamilton coronary artery of hamilton heart without angina pectoris (Chronic) Diabetes mellitus (Chronic) Obesity (Chronic) Hypertension (Chronic) Benign prostatic hypertrophy (Chronic) COPD (chronic obstructive pulmonary disease) (Chronic) GERD (gastroesophageal reflux disease) (Chronic) [place] (obstructive sleep apnea) (Chronic) AICD (automatic cardioverter/defibrillator) present (Chronic) PAD (peripheral artery disease) (Chronic) Pleural effusion, left (Chronic) HLD (hyperlipidemia) (Chronic) Ischemic cardiomyopathy (Chronic) Hypokalemia (Acute) Hypotension (Acute) Acute on chronic renal failure (Acute) Near syncope (Acute) Systolic CHF, chronic (Chronic) Atrial fibrillation (Chronic) Light headedness (Acute) Chest pain (Acute) Atherosclerosis of hamilton coronary artery of hamilton heart without angina pectoris (Acute) LV apical aneurysm with thrombus (Acute) Surgical History S/P PTCA (percutaneous transluminal coronary angioplasty) (Chronic) H/O atrioventricular chris ablation (Chronic 07/11/15) History of cardiac pacemaker (Chronic 07/11/15) History of cholecystectomy (Chronic) S/P aorto-bifemoral bypass surgery (Chronic 2003) Family History Father Hypertension CAD (coronary artery disease) Sister Cancer Social History Smoking Status: Former smoker alcohol intake: never substance use type: does not use caffeine: No what type of physical activity do you participate in: walking frequency: 1-2 times per week duration: 15-30 minutes/day seatbelt use: always do you feel safe at home: Yes ROS Const Const: Negative for fatigue, weakness, night sweats, excessive sweating, frequent falls, headache(s) or daytime sleepiness Eyes Eyes: Negative for loss of peripheral vision, transient loss of vision, blind spots, double vision or blurry vision ENT ENT: Negative for headache(s), dizziness, balance problems, Nosebleed/epistaxis, tongue swelling or lip swelling Cardio Chest Pain: No Palpitations: No Edema: None Muscle aches with walking: None Resp Respiratory: Negative for SOB at rest, SOB orthopnea\SOB lying down, Cough, paroxysmal nocturnal dyspnea or SOB with activity GI GI: Negative nausea, vomiting, heartburn, black,tarry stools or bright, red blood in stools : Negative for hematuria Musc Musc: Negative for balance problems, muscle aches/ myalgia, muscle weakness or joint pain Skin Skin: Negative non-healing lesions, unusual bruising or rash Neuro Neuro: Negative for weakness, frequent falls, headache(s), double vision, dizziness, lightheadedness, orthostatic symptoms, blurry vision or lack of coordination Eric Hematologic/Lymphatic: Negative for easy bruising or easy bleeding Endo Endo: Negative for fatigue, excessive sweating, cold intolerance, heat intolerance, increased thirst/drinking or hair loss Psych Psych: Negative for anxiety or depression Allergy Allergy/Immunology: Negative for throat swelling, Negative for tongue swelling, Negative for hives, Negative for rash, Negative for lip swelling Assessment AND Plan Medications Discontinued: carvedilol Discontinued Reason: Order edited -3.125 mg PO BID Judy Jim Discontinuing original order Coding Level of Care Code No Charge Coding Level of Care Code No Charge 12/10/17 1615 <Electronically signed by Keven Willingham MD> Date Keven Willingham MD Cosigner Signature: Date (if applicable) CC: Allen Batres MD PROTHROMBIN TIME W/INR Collected: 12/10/2017 Status: F Source: [place] 12:05 PM [facility] REPOSITORY TYPE CODE TESTS RESULT OUT OF RANGE REFERENCE UNITS LAB L300.4150 11.7-14.9 SECONDS High PROTIME 28.4 LAB L300.4200 Normal INR 2.7 Performed By: #### L300.3900 #### [facility] [address] [place], [place], [id number] PROGRESS Observed: 11/04/2017 Status: COMPLETED Source: [place] 3:09 PM [facility] REPOSITORY HNO ID: [id number] Author: Jeanine Samaniego Service: (none) Author Type: Physician Type: Progress Notes Filed: 11/04/2017 3:24 PM Note Text: Jeanine Samaniego DPM Department of Podiatry [address] [facility] [address] Dept: [phone] Dept Diabetic Nail Care SUBJECTIVE: Follow up office visit: This 56 year old male presents to clinic c/o painful toenails. Patient states that the nails are especially painful with shoe gear and pressure. Patient admits to being diabetic and states that their blood sugar was 300 mg/dL this AM. Patient complains of superficial rash of left foot. Patient denies claudication type symptoms when walking. No other pedal complaints at this time. No change in medications or medical history since last visit. OBJECTIVE: Patient presents to clinic ambulating in diabetic shoes. Vasc: DP and PT pulses are decreased bilateral. CFT is less than 5 seconds bilateral. Skin temperature is warm to cool proximal to distal bilateral. There is mild edema or varicosities noted. Hair growth absent. Neuro: Protective sensation is absent to the foot and toes when tested with the 5.07 SWM bilateral. Vibratory sensation is absent at the hallux bilateral. significant neurological defecits. Derm: Inspection and palpation performed. Nails 1-5 b/l are painful, discolored-yellow, thick, crumbly, dystrophic and with subungal debris. Skin is dry and scaly b/l. Hyperkeratosis absent. There is pruritic type lesions noted to left foot NO ulcerations, scars, verruca or other lesions noted. Ortho: Ankle joint DF is full with the knee extended and full with knee flexed. No pain or crepitus noted. STJ, MTJ ROM are full and free of pain or crepitus. Muscle strength is 5/5 for dorsiflexors, plantarflexors, inverters, everters. ASSESSMENT: (B35.1) Onychomycosis (primary encounter diagnosis) (M79.675) Pain in toe of left foot (M79.674) Pain in toe of right foot (E11.42) Diabetic polyneuropathy associated with type 2 diabetes mellitus ([facility]) (I73.9) PAD (peripheral artery disease) ([facility]) (L30.9) Dermatitis PLAN: Patient was seen and evaluated. Nails 1-5 bilateral were debrided in length and thickness. There is likely dermatitis of left foot. Discussed steroid cream. He declined. If this fails to improve, he will contact us. Patient was instructed on the continued importance of diabetic foot care along with proper diet and keeping their blood sugar under control to prevent complications. Patient is to RTC in 3-4 months. Jeanine Samaniego DPM CNOV Observed: 11/04/2017 Status: COMPLETED Source: [place] 2:55 PM [facility] REPOSITORY Office Visit (PODIWS) DAKOTAH PRATT JR ([id number]) 1960 M Date Time Provider Department 11/04/17 2:55 PM JEANINE SAMANIEGO During your visit today, we recorded the following information about you: Jeanine Samaniego DPM 11/04/2017 3:24 PM Signed Jeanine Samaniego DPM Department of Podiatry [facility] [address] [facility] [address] Dept: [phone] Dept Diabetic Nail Care SUBJECTIVE: Follow up office visit: This 56 year old male presents to clinic c/o painful toenails. Patient states that the nails are especially painful with shoe gear and pressure. Patient admits to being diabetic and states that their blood sugar was 300 mg/dL this AM. Patient complains of superficial rash of left foot. Patient denies claudication type symptoms when walking. No other pedal complaints at this time. No change in medications or medical history since last visit. OBJECTIVE: Patient presents to clinic ambulating in diabetic shoes. Vasc: DP and PT pulses are decreased bilateral. CFT is less than 5 seconds bilateral. Skin temperature is warm to cool proximal to distal bilateral. There is mild edema or varicosities noted. Hair growth absent. Neuro: Protective sensation is absent to the foot and toes when tested with the 5.07 SWM bilateral. Vibratory sensation is absent at the hallux bilateral. significant neurological defecits. Derm: Inspection and palpation performed. Nails 1-5 b/l are painful, discolored-yellow, thick, crumbly, dystrophic and with subungal debris. Skin is dry and scaly b/l. Hyperkeratosis absent. There is pruritic type lesions noted to left foot NO ulcerations, scars, verruca or other lesions noted. Ortho: Ankle joint DF is full with the knee extended and full with knee flexed. No pain or crepitus noted. STJ, MTJ ROM are full and free of pain or crepitus. Muscle strength is 5/5 for dorsiflexors, plantarflexors, inverters, everters. ASSESSMENT: (B35.1) Onychomycosis (primary encounter diagnosis) (M79.675) Pain in toe of left foot (M79.674) Pain in toe of right foot (E11.42) Diabetic polyneuropathy associated with type 2 diabetes mellitus ([facility]) (I73.9) PAD (peripheral artery disease) ([facility]) (L30.9) Dermatitis PLAN: Patient was seen and evaluated. Nails 1-5 bilateral were debrided in length and thickness. There is likely dermatitis of left foot. Discussed steroid cream. He declined. If this fails to improve, he will contact us. Patient was instructed on the continued importance of diabetic foot care along with proper diet and keeping their blood sugar under control to prevent complications. Patient is to RTC in 3-4 months. Jeanine Samaniego DPM Referring Provider: JEANINE SAMANIEGO [[id number]] Allergies As of Date: 11/04/2017 Noted Allergy Reaction PENICILLINS 08/15/2013 16 - Unknown TRAMADOL 03/03/2016 2 - Rash 9 - Itching Date Reviewed: 09/28/2017 Reviewed by: Rivera Dukes RN - Fully Assessed Reason for Visit: Diabetic Foot Care [916] Primary Visit Diagnosis:Onychomycosis [B35.1] Other Visit Diagnoses:Pain in toe of left foot [M79.675] Pain in toe of right foot [M79.674] Diabetic polyneuropathy associated with type 2 diabetes mellitus (HCC) [E11.42] PAD (peripheral artery disease) (HCC) [I73.9] Dermatitis [L30.9] Prescriptions as of 11/04/2017 Sig: LANCETS Test blood sugar(s) 2 daily. * FUROSEMIDE 80 MG TABLET Take 1 tablet by mouth twice * GABAPENTIN 300 MG CAPSULE TAKE 1 CAPSULE THREE TIMES A * ULTICARE PEN NEEDLE 31 GAUGE * USE 1 NEEDLE PER DOSE 5 TIMES* INSULIN GLARGINE (U-300) 300 * INJECT 70 UNITS SUBCUTANEOUSL* MAGNESIUM CITRATE ORAL SOLUTI* Take 148 mL by mouth as direc* BISACODYL 5 MG TABLET,DELAYED* Take 1 tablet by mouth as dir* INSULIN LISPRO (U-100) 100 UN* Inject 12 Units subcutaneousl* BLOOD SUGAR DIAGNOSTIC STRIPS Test blood sugar(s) 3 times d* SPIRONOLACTONE 25 MG TABLET Take 25 mg by mouth once eder* POTASSIUM CHLORIDE 20 MEQ ORA* Take 20 mEq by mouth twice da* LISINOPRIL 2.5 MG TABLET Take 2.5 mg by mouth once corine* ATORVASTATIN 40 MG TABLET Take 1 tablet by mouth daily * CARVEDILOL 6.25 MG TABLET Take 0.5 tablets by mouth twi* WARFARIN 5 MG TABLET Take 5 mg by mouth daily as d* PEG 3350 240 GRAM-ELECTROLYTE* Take 4000 ml as directed. Fo* ASPIRIN 81 MG TABLET,DELAYED * Take 1 tablet by mouth once d* COMPOUNDED PRESCRIPTION Support stockings: 20- 30 mmhg* INSULIN SYRINGE-NEEDLE U-100 * Use bid OTC PRODUCT DiabetAid capsaicin 0.025% cr* BLOOD-GLUCOSE METER KIT Pt testing twice daily and pt* CPAP CLOPIDOGREL 75 MG TABLET Take 75 mg by mouth once eder* FAMOTIDINE 40 MG TABLET Take 40 mg by mouth once eder* NITROGLYCERIN 0.4 MG SUBLINGU* Dissolve 0.4 mg under the ton* Problem List As Of Date 11/04/2017 Noted Resolved Diabetes [E11.9] 04/12/2015 Priority: C More... Cardiac defibrillator in place [Z95.810] INVALID FOR* Priority: C More... Hypertension [I10] Priority: C More... Mini stroke [I63.9] Heart attack [I21.9] 04/28/2017 Sleep apnea [G47.30] More... Hyperlipidemia [E78.5] Neuropathy [G62.9] Apical mural thrombus [I51.3] More... Cerebral infarction (HCC) [I63.9] More... PAD (peripheral artery disease) [I73.9] More... 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 Urinary retention [R33.9] INVALID FOR*04/28/2017 Priority: B More... SUMMARY [V999.95] INVALID FOR*10/02/2016 Priority: Very Severe More... Diabetes mellitus with neuropathy (HCC) [E11.40]INVALID FOR*04/12/2015 Type 2 diabetes mellitus with diabetic neuropat*INVALID FOR* Renal insufficiency [N28.9] INVALID FOR* Atrial fibrillation (HCC) [I48.91] INVALID FOR* Disposition: Return in about 3 months (around 02/04/2018) for nail care. Follow-up and Disposition History Recorded Encounter Status:Closed by JEANINE SAMANIEGO DPM on 11/04/17 CNCO Observed: 10/28/2017 Status: COMPLETED Source: [place] 12:00 AM [facility] REPOSITORY Letter Text [place] Department of Family Medicine [address] [place], [place] [address] Dakotah Pratt Jr [address] [place] [id number] Clinic #: [id number] 10/28/2017 Dear Mr. Pratt, We are writing to inform you of a missed appointment at the [facility] with the pharmacist, which was scheduled for 10/21/17. Please call Michaela, the pharmacist, to reschedule your appointment. [phone] Thank you, Michaela Bailey, PharmD, BCPS Primary Care Clinical Pharmacist [facility] PACEMAKER CHECK Observed: 09/30/2017 Status: F Source: [place] 11:50 AM [facility] REPOSITORY [facility] [address] [place] [address]. [address] [place] [id number] Pacemaker Check Date of Service: 09/15/17 1459 MR#: [id number] Acct: [id number] Name: DAKOTAH PRATT Rep #: [id number] : 1960 From: Chrissie Verdugo Age/Sex: 56/M Location: [facility] Status: Signed Comments Summary Comments: Bi-VICD Evaluation: Interrogation shows no VT/VF episodes and atrial burden 100% since last check 06/08/17. Right pectoral pocket/incision w/o s/s of infection or erosion. Pt offers no cardiac complaints. Presenting rhythm shows Bi- Vpaced @ 80 ppm with underlying atrial fib. Bi-Cllyyv=316%. Battery longevity approx 7.5 yrs. Lead impedances, atrial sensing of fib waves and RV/LV pace/sense thresholds remain stable. Unable to check ventricular sensing d/t no intrinsic R waves with rate decrease. No parameter changes made. Counters cleared. Next f/u appt scheduled for in 3 mos. Device Device Date Interviewed: 09/15/17 Follow-up Location: in office Interview Reason: routine follow up Utility Tractor Operator: clinovo Name: Dynagen STAMP MACHINE SERVICER-D Model: G151 Serial #: [id number] Implant Date: 07/11/15 Year(s): 2 Implant Physician: Dr. Juan Alberto Heck/[facility] Patient Characteristics Atrial Indication: Permanent atrial fibrillation AV/Node Indication: Complete heart block (no intrinsic R waves) Patient Substrate: Ischemic cardiomyopathy Ejection fraction %: 15 to 19 (07/03/2015) By: Echo Underlying rhythm: Atrial fibrillation with complete heart block Pacemaker Dependent: Yes Device Characteristics Device: Biventricular Type: Implantable defibrillator Remote Follow-Up: No Device Physical Exam Yes Incision well healed Leads Lead #1 Utility Tractor Operator Lead 1: Guidant Model Lead 1: 4135 Serial# Lead 1: [id number] Date Implanted Lead 1: 01/03/10 Position Lead 1: RA Lead #2 Utility Tractor Operator Lead 2: Guidant Model Lead 2: 0184 Serial# Lead 2: [id number] Date Implanted Lead 2: 01/03/10 Position Lead 2: RV Lead #3 Utility Tractor Operator Lead 3: Guidant Model Lead 3: 4543 Serial# Lead 3: [id number] Date Implanted Lead 3: 07/11/15 Position Lead 3: LV Diagnostics Pacing % RA Pacin % RV Pacin % LV Pacin Mode Switching Total # Episodes: 1 % Mode switched: 100 Arrhythmias VF Episodes: 0 Fast VT Episodes: 0 Slow VT Episodes: 0 Non-Sust Episodes: 0 Measurements Battery Charge Time (Sec): 9.7 Battery Status: DAVIS Predicted Remaining Longevity (months or years): 7.5 years RA Measurements Signal Amplitude (mV): 7.9 Impedance (Ohms): 714 RV Measurements Impedance (Ohms): 480 Threshold Voltage: 0.7 @ PW(ms): 0.4 Shock Impedance (Ohms): 43 LV Measurements Impedance (Ohms): 744 Threshold Voltage: 0.8 @ PW(ms): 0.4 Tachy Settings VF Therapies VF Therapy Status On On On On On On Energy 41 41 41 41 41 41 Pathway ATP: During charging on FVT Therapies FVT Therapy Status On On On On On On VT Therapies FVT Therapy Status Off Off Off Off Off Off Comments: Geovany Settings Geovany Settings Pacemaker Mode DDD Output/Sensing V/PW (ms) 2.0/0.4 2.0/0.4 2.0/0.4 Sensitivity RA RV LV AGC 0.25 0.4 1.0 Comments: Billing Codes ICD Device Billing: ICD Dev Prog Eval, Multi Assessment AND Plan Problems 1. ICD (implantable cardioverter-defibrillator), biventricular, in situ Z95.810 2. Ischemic cardiomyopathy I25.5 3. Near syncope R55 4. Systolic CHF, chronic I50.22 5. Chronic atrial fibrillation I48.2 AV Node RFA 07/11/2015 6. H/O atrioventricular chris ablation Z98.890 7. AICD (automatic cardioverter/defibrillator) present Z95.810 09/29/17 1836 <Electronically signed by Chrissie Verdugo > Date Chrissie Verdugo 09/30/17 1150<Electronically signed by Keven Willingham MD> Cosigner Signature: Date (if applicable) Keven Willingham MD CC: PROGRESS Observed: 09/28/2017 Status: COMPLETED Source: [place] 11:48 AM [facility] REPOSITORY HNO ID: [id number] Author: Ana Maria Del Angel Service: (none) Author Type: Physician Type: Progress Notes Filed: 09/28/2017 11:49 AM Note Text: This office note has been dictated. Ana Maria Del Angel DO CNOV Observed: 09/28/2017 Status: COMPLETED Source: [place] 10:30 AM [facility] REPOSITORY Office Visit (VASSWS) DAKOTAH PRATT JR ([id number]) 1960 M Date Time Provider Department 09/28/17 10:30 AM ANA MARIA DEL ANGEL VASSWS During your visit today, we recorded the following information about you: Pulse Blood pressure 82/minute 108/78 Ana Maria Del Angel 09/28/2017 11:49 AM Signed This office note has been dictated. Ana Maria Del Angel DO Referring Provider: ANA MARIA DEL ANGEL [[id number]] Allergies As of Date: 09/28/2017 Noted Allergy Reaction PENICILLINS 08/15/2013 16 - Unknown TRAMADOL 03/03/2016 2 - Rash 9 - Itching Date Reviewed: 09/28/2017 Reviewed by: Ernst VOSS, Rivera Cortes - Fully Assessed Reason for Visit: Established Patient [175] Primary Visit Diagnosis:Peripheral arterial disease (HCC) [I73.9] Order(s):US ABD AORTA COMPLETE [facility] [[id number]] Order #: [id number] FUTURE PVR LEG TAN[facility] [[id number]] Order #: [id number] FUTURE Prescriptions as of 09/28/2017 Sig: FUROSEMIDE 80 MG TABLET Take 1 tablet by mouth twice * GABAPENTIN 300 MG CAPSULE TAKE 1 CAPSULE THREE TIMES A * ULTICARE PEN NEEDLE 31 GAUGE * USE 1 NEEDLE PER DOSE 5 TIMES* INSULIN GLARGINE (U-300) 300 * INJECT 70 UNITS SUBCUTANEOUSL* MAGNESIUM CITRATE ORAL SOLUTI* Take 148 mL by mouth as direc* BISACODYL 5 MG TABLET,DELAYED* Take 1 tablet by mouth as dir* INSULIN LISPRO (U-100) 100 UN* Inject 12 Units subcutaneousl* BLOOD SUGAR DIAGNOSTIC STRIPS Test blood sugar(s) 3 times d* SPIRONOLACTONE 25 MG TABLET Take 25 mg by mouth once eder* POTASSIUM CHLORIDE 20 MEQ ORA* Take 20 mEq by mouth twice da* LISINOPRIL 2.5 MG TABLET Take 2.5 mg by mouth once corine* ATORVASTATIN 40 MG TABLET Take 1 tablet by mouth daily * CARVEDILOL 6.25 MG TABLET Take 0.5 tablets by mouth twi* WARFARIN 5 MG TABLET Take 5 mg by mouth daily as d* ASPIRIN 81 MG TABLET,DELAYED * Take 1 tablet by mouth once d* LANCETS Test blood sugar(s) 2 daily. * INSULIN SYRINGE-NEEDLE U-100 * Use bid OTC PRODUCT DiabetAid capsaicin 0.025% cr* BLOOD-GLUCOSE METER KIT Pt testing twice daily and pt* CLOPIDOGREL 75 MG TABLET Take 75 mg by mouth once eder* FAMOTIDINE 40 MG TABLET Take 40 mg by mouth once eder* NITROGLYCERIN 0.4 MG SUBLINGU* Dissolve 0.4 mg under the ton* PEG 3350 240 GRAM-ELECTROLYTE* Take 4000 ml as directed. Fo* COMPOUNDED PRESCRIPTION Support stockings: 20- 30 mmhg* CPAP Problem List As Of Date 09/28/2017 Noted Resolved Diabetes [E11.9] 04/12/2015 Priority: C More... Cardiac defibrillator in place [Z95.810] INVALID FOR* Priority: C More... Hypertension [I10] Priority: C More... Mini stroke [I63.9] Heart attack [I21.9] 04/28/2017 Sleep apnea [G47.30] More... Hyperlipidemia [E78.5] Neuropathy [G62.9] Apical mural thrombus [I51.3] More... Cerebral infarction (HCC) [I63.9] More... PAD (peripheral artery disease) [I73.9] More... 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 Urinary retention [R33.9] INVALID FOR*04/28/2017 Priority: B More... SUMMARY [V999.95] INVALID FOR*10/02/2016 Priority: Very Severe More... Diabetes mellitus with neuropathy (HCC) [E11.40]INVALID FOR*04/12/2015 Type 2 diabetes mellitus with diabetic neuropat*INVALID FOR* Renal insufficiency [N28.9] INVALID FOR* Atrial fibrillation (HCC) [I48.91] INVALID FOR* Encounter Status:Closed by ANA MARIA DEL ANGEL DO on 09/28/17 PROGRESS Observed: 09/28/2017 Status: COMPLETED Source: [place] 12:00 AM [facility] REPOSITORY HNO ID: [id number] Author: Ana Maria Del Angel Service: Vascular Surgery Author Type: Physician Type: Progress Notes Filed: 10/21/2017 11:59 AM Note Text: NAME: DAKOTAH PRATT JR [facility] NO: [id number] DATE OF SERVICE: 09/28/2017 Subjective: Mr. Pratt is here to follow up on PVRs and aortic duplex. He denies any significant complaints. He does have short distance claudication, non-lifestyle limiting. No rest pain or ulcerations. When he recently followed up with his PCP, his hemoglobin A1c was extremely elevated at greater than 15. He said he was off of his medications and eating poorly. He states his blood sugars are now starting to get in better control, in the 200-300s. Objective: His vital signs are stable. He is in no distress. He has no significant lower extremity edema. He has chronic hyperpigmentation of his lower extremities. He has no ulcerations or tissue loss. He does have a small callus on his right 5th toe. His vascular lab testing demonstrates noncompressible vessels that are stable with moderate disease bilaterally. His aortic duplex demonstrates patent iliofemoral grafts without significant stenosis. He does have known SFA, popliteal and tibial disease on the left. Assessment/Plan: Peripheral arterial disease, status post revascularization. Discussed the findings with [place]. Recommend that he continue walking and exercise as tolerated, continue his current medications. He will follow up in six months, or sooner with any symptoms or sores or ulcerations. Ana Maria Del Angel D.O. KB/[id number] Audio #: [id number] Date Dictated: 09/28/2017 10:45:57 Date Typed: 10/04/2017 19:03:43 Date Revised: BASIC METABOLIC PANL Collected: 09/16/2017 Status: F Source: [place] 1:31 PM [facility] REPOSITORY TYPE CODE TESTS RESULT OUT OF REFERENCE UNITS RANGE LAB GLU 74-99 mg/dL High Glucose 293 Result Comment: The [place] [employer] (ADA) provides guidance for cutoff values for fasting glucose and random glucose. The ADA defines fasting as no caloric intake for at least 8 hours. Fas ting plasma glucose results between 100 to 125 mg/dL indicate increased risk for diabetes (prediabetes). Fasting plasma glucose results greater than or equal to 126 mg/dL meet the criteria for diagnosis of diabetes. In the absence of unequivocal hyperglycemia, results should be confirmed by repeat testing. In a patient with classic symptoms of hyperglycemia or hyperglycemic crisis, random plasma glucose results greater than or equal to 200 mg/dL meet the criteria for diagnosis of diabetes. Reference: Standards of Medical Care in Diabetes 2016, [place] [employer]. Diabetes Care. 2016.39(Suppl 1). LAB BUN 9-24 mg/dL BUN High 28 LAB CRET 0.73-1.22 mg/dL Creatinine High 1.24 LAB NA 136-144 mmol/L Low Sodium 135 LAB K 3.7-5.1 mmol/L Potassium 4.6 LAB CL 97-105 mmol/L Low Chloride 94 LAB CO2 22-30 mmol/L CO2 25 LAB AGAP 9-18 mmol/L Anion Gap 16 LAB CA 8.5-10.2 mg/dL Calcium, Total 8.9 LAB GFRAA eGFR- Amer. >60 LAB GFRNAA . eGFR-All Other Races >60 Result Comment: eGFR (Estimated GFR) Units of measure: mL/min/1.73 meters squared eGFR is derived from the reexpressed MDRD Study equation using the following parameters: serum creatinine, age, gender and race. The creatinine assay has been calibrated to be traceable to IDMS. An eGFR <60 mL/min/1.73m2 for >3 months is consistent with chronic kidney disease. Refer to KDOQI guidelines for clinical interpretation. In patients with unstable renal function, e.g. those with acute kidney injury, the eGFR may not accurately reflect actual GFR. Performed By: #### BMP #### [facility] [address] [place], [place] [address] PROGRESS Observed: 09/16/2017 Status: COMPLETED Source: [place] 12:26 PM [facility] [place] REPOSITORY HNO ID: [id number] Author: Allen Batres Service: (none) Author Type: Physician Type: Progress Notes Filed: 09/16/2017 12:44 PM Note Text: Patient presents with: ED Follow Up: [facility], 09/07/17 HPI: Patient presents today for office visit for followup. Seen in ER for weakness and epistaxis. He was to follow with Dr. Shoemaker. He never did. He removed packing on his own. His most recent labs showed a total collapse of his diabetic control. He does not appear to be taking his meds correctly. He admits to not taking his insulin. He is still following with [facility] who is following. Will notify them he admits to missing meds. Nose bleeds are better. He admits that sugar was still slightly high yesterday. Admits to not following the diet as well also. Reinforced need to be compliant. Reviewed complications due to uncontrolled sugars including . No chest pain or shortness of breath. Edema is stable. Component Latest Ref Rng AND Units 05/04/2017 09/03/2017 WBC 3.70 - 11.00 k/uL 7.02 RBC 4.20 - 6.00 m/uL 5.70 Hemoglobin 13.0 - 17.0 g/dL 16.0 Hematocrit 39.0 - 51.0 % 48.3 MCV 80.0 - 100.0 fL 84.7 MCH 26.0 - 34.0 pG 28.1 MCHC 30.5 - 36.0 g/dL 33.1 RDW-CV 11.5 - 15.0 % 13.7 Platelet Count 150 - 400 k/uL 181 MPV 9.0 - 12.7 fL 11.3 Absolute nRBC <0.01 k/uL <0.01 Glucose 74 - 99 mg/dL 408 (H) BUN 9 - 24 mg/dL 33 (H) Creatinine 0.73 - 1.22 mg/dL 1.39 (H) Sodium 136 - 144 mmol/L 130 (L) Potassium 3.7 - 5.1 mmol/L 4.5 Chloride 97 - 105 mmol/L 90 (L) CO2 22 - 30 mmol/L 24 Anion Gap 9 - 18 mmol/L 16 Calcium 8.5 - 10.2 mg/dL 9.9 eGFR- >60 eGFR-All Other Races . 53 Hemoglobin A1C 4.3 - 5.6 % 7.9 HbA1c value is greater than 15%, consider possibility of hemoglobin variant . . . Estimated Average Glucose mg/dL Unable to calculate because one or more components used in calculation is outside . . . MEDICATIONS: Current Outpatient Prescriptions: furosemide (LASIX) 80 mg tablet Take 0.5 tablets by mouth twice daily. (Patient taking differently: Take 80 mg by mouth twice daily. ) gabapentin (NEURONTIN) 300 mg capsule TAKE 1 CAPSULE THREE TIMES A DAY ULTICARE PEN NEEDLE 31 gauge x 10/07 ndle USE 1 NEEDLE PER DOSE 5 TIMES PER DAY insulin glargine (TOUJEO SOLOSTAR) 300 unit/mL (1.5 mL) inpn INJECT 70 UNITS SUBCUTANEOUSLY AT BEDTIME Insulin Lispro, Human, (HUMALOG KWIKPEN) 100 unit/mL inpn Inject 12 Units subcutaneously w MEALS. blood sugar diagnostic (HallspotTOUCH ULTRA TEST) test strip Test blood sugar(s) 3 times daily. Dx: Type 2 DM - Uncontrolled E11.65 Insulin: no spironolactone (ALDACTONE) 25 mg tablet Take 25 mg by mouth once daily. potassium chloride (K-ELIZABETH, KLOR-CON) 20 mEq packet Take 20 mEq by mouth twice daily. lisinopril 2.5 mg tablet Take 2.5 mg by mouth once daily. atorvastatin (LIPITOR) 40 mg tablet Take 1 tablet by mouth daily at bedtime. For cholesterol. carvedilol (COREG) 6.25 mg tablet Take 0.5 tablets by mouth twice daily with meals. Hold antihypertensives for SBP <100. Hold betablockers for HR <60 warfarin (COUMADIN) 5 mg tablet Take 5 mg by mouth daily as directed. aspirin, enteric coated (ASPIRIN, ENTERIC COATED) 81 mg EC tablet Take 1 tablet by mouth once daily. Lancets lancets Test blood sugar(s) 2 daily. Dx: 250.00 Insulin: Yes Insulin Syringe-Needle U-100 1 mL 29 syrg Use bid Blood-Glucose Meter monitoring kit Pt testing twice daily and pt dx. dm2 CPAP clopidogrel 75 mg tablet Take 75 mg by mouth once daily. famotidine 40 mg tablet Take 40 mg by mouth once daily. nitroglycerin sublingual 0.4 mg SL tablet Dissolve 0.4 mg under the tongue every 5 minutes as needed. magnesium citrate solution Take 148 mL by mouth as directed. Take one bottle the first day of the prep, as explained on the instruction sheet provided to you. bisacodyl EC (DULCOLAX, BISACODYL,) 5 mg EC tablet Take 1 tablet by mouth as directed. Take two (2) the first day of the prep, as explained on the instruction sheet provided. peg 3350-electrolytes (COLYTE) 240-22.72-6.72 -5.84 gram solution Take 4000 ml as directed. Follow written instructions from the doctor's office. COMPOUNDED PRESCRIPTION Support stockings: 20-30 mmhg, knee high with zipperDX: venous insufficiency OTC PRODUCT DiabetAid capsaicin 0.025% cream, applied to feet daily at bedtime. No current facility-administered medications for this visit. ALLERGIES: ALLERGIES Allergen Reactions - Penicillins Unknown - Tramadol Rash, Itching PAST MEDICAL HISTORY Diagnosis Date - Alcoholism in remission ([facility]) - Apical mural thrombus coumadin per Dr. Willingham - Atrial fibrillation ([facility]) anticoagulation per cardiology - Cardiac defibrillator in place 12/2010 Dr. Willingham - Carotid artery disease ([facility]) biltaer ICA 20-39% stenosis on 05/11/13 - CHF (congestive heart failure) ([facility]) - CVA (cerebral infarction) x 2 - Diabetes ([facility]) type 2 - Heart attack ([facility]) 2009 - History of coronary artery stent placement 05/29/09 LAD, Diag - Hyperlipidemia - Hypertension - Mini stroke ([facility]) 2009 - Neuropathy ([facility]) sees Dr. Arnold - Obstructive sleep apnea on CPAP uses cpap, sees Dr. Miles - PAD (peripheral artery disease) ([facility]) 2006 [facility] - Presence of combination internal cardiac defibrillator (ICD) and pacemaker - RBBB (right bundle branch block) - Valvular heart disease PAST SURGICAL HISTORY Procedure Laterality Date - ARTERY BYPASS 2006 bilateral legs at [facility], [place] - DRAIN FINGER ABSCESS COMPL Right 02/29/2016 I AND D right middle finger - PAST SURGICAL HISTORY OF 05/29/09 stent LAD, Diag - PAST SURGICAL HISTORY OF AV chris ablation, pacemaker FAMILY HISTORY Problem Relation Age of Onset - Cancer Mother lung - Heart Father - Hypertension Brother Social History Marital status: Spouse name: Years of education: Number of children: 0 Social History Main Topics Smoking status: Former Smoker Packs/day: 0.00 Years: 0.00 Smokeless status: Never Used Alcohol use: No Comment: recovered alcoholic (15years) Drug use: No Comment: 15 years ago Sexual activity: No Reviewed current medications, allergies, past medical history, surgical history, family history and social history today. REVIEW OF SYSTEMS All other reviewed and negative other than HPI. VITALS: BP 103/72 Pulse 80 Resp 16 Wt 94.8 kg (209 lb) BMI 34.78 kg/m2 Last 4 Encounter Wt Readings: Date: Wt: 09/16/2017 94.8 kg (209 lb) 09/03/2017 94.3 kg (208 lb) 04/28/2017 91.2 kg (201 lb) 02/17/2017 83.9 kg (185 lb) PHYSICAL EXAMINATION: General appearance: Well appearing, alert, in no acute distress, well-hydrated, well nourished. Skin: Skin color, texture, turgor normal, no suspicious rashes or lesions, venous stasis changes. Nose. No current epistaxis. Head: Normocephalic, no masses, lesions, tenderness or abnormalities Lungs: Lungs clear to auscultation. No wheezing, rhonchi, rales Heart: RRR without murmur, gallop, or rubs. No ectopy Abdomen: Normal abdominal exam, Abdomen soft, non-tender. Bowel sounds normal. No masses, organomegaly Extremities: No deformities, edema, skin discoloration, clubbing or cyanosis. Good capillary refill. ASSESSMENT/PLAN: 1. Type 2 diabetes mellitus with diabetic neuropathy, with long-term current use of insulin (HCC) - ICD9: 250.60, 357.2, V58.67, ICD10: E11.40, Z79.4 (primary diagnosis) worsening control Poor adherence to plan of care. - Encouraged compliance. Community care is following at home. Will notify them. See pharmacy. - CONSULT TO PHARMACY 2. Renal insufficiency - ICD9: 593.9, ICD10: N28.9 0 recheck labs. - BASIC METABOLIC PNL 3. Atrial fibrillation, unspecified type (HCC) - ICD9: 427.31, ICD10: I48.91 - continue meds. inr followed by cardiology. 4. Alcoholism in remission (HCC) - ICD9: 303.93, ICD10: F10.21 - denies current usage. 5. Ischemic cardiomyopathy - ICD9: 414.8, ICD10: I25.5 - continue meds. 6. Neuropathy (HCC) - ICD9: 355.9, ICD10: G62.9 - stable. 7. Essential hypertension - ICD9: 401.9, ICD10: I10 - good control 8. Mini stroke (HCC) - ICD9: 434.91, ICD10: I63.9 - stable. 9. Epistaxis - ICD9: 784.7, ICD10: R04.0 - reinforced keeping nose moist. Discussed importance of ent follow up. - CONSULT TO ENT 10. Apical mural thrombus - ICD9: 410.10, ICD10: I51.3 - as above. Allen Batres MD RTO in six weeks and prn. CNOV Observed: 09/16/2017 Status: COMPLETED Source: [place] 11:40 AM [facility] REPOSITORY Office Visit (FAMPWS) DAKOTAH PRATT JR ([id number]) 1960 M Date Time Provider Department 09/16/17 11:40 AM ALLEN BATRESWS During your visit today, we recorded the following information about you: Pulse Respiration Blood pressure Weight 80/minute 16/minute 103/72 94.8 kg Shavon Norris Ma 09/16/2017 11:58 AM Signed HOSPITAL/ER FOLLOW UP: Reason for visit: Nosebleeds,after packing, weak and tired Which facility: [facility] Date of visit: 09/07/17 Diagnosis: Epistaxis, Hyperglycemia Testing done: INR was 2.4, CBC normal except platelets were 138, Chem showed sodium 135, glucose 348, BUN 38, Creatinine 1.47. Troponin negative Treatment given: IV fluids, Insulin, repacked after bleeding slowed down. Pt was to follow up with ENT, pt never went. Pt removed packing himself 2 days later. Current symptoms: Pt denies any more nosebleeds, weakness, fatigue, or black stools. Allen Batres MD 09/16/2017 12:44 PM Signed Patient presents with: ED Follow Up: [facility], 09/07/17 HPI: Patient presents today for office visit for followup. Seen in ER for weakness and epistaxis. He was to follow with Dr. Shoemaker. He never did. He removed packing on his own. His most recent labs showed a total collapse of his diabetic control. He does not appear to be taking his meds correctly. He admits to not taking his insulin. He is still following with [facility] who is following. Will notify them he admits to missing meds. Nose bleeds are better. He admits that sugar was still slightly high yesterday. Admits to not following the diet as well also. Reinforced need to be compliant. Reviewed complications due to uncontrolled sugars including . No chest pain or shortness of breath. Edema is stable. Component Latest Ref Rng ANDamp; Units 05/04/2017 09/03/2017 WBC 3.70 - 11.00 k/uL 7.02 RBC 4.20 - 6.00 m/uL 5.70 Hemoglobin 13.0 - 17.0 g/dL 16.0 Hematocrit 39.0 - 51.0 % 48.3 MCV 80.0 - 100.0 fL 84.7 MCH 26.0 - 34.0 pG 28.1 MCHC 30.5 - 36.0 g/dL 33.1 RDW-CV 11.5 - 15.0 % 13.7 Platelet Count 150 - 400 k/uL 181 MPV 9.0 - 12.7 fL 11.3 Absolute nRBC ANDlt;0.01 k/uL ANDlt;0.01 Glucose 74 - 99 mg/dL 408 (H) BUN 9 - 24 mg/dL 33 (H) Creatinine 0.73 - 1.22 mg/dL 1.39 (H) Sodium 136 - 144 mmol/L 130 (L) Potassium 3.7 - 5.1 mmol/L 4.5 Chloride 97 - 105 mmol/L 90 (L) CO2 22 - 30 mmol/L 24 Anion Gap 9 - 18 mmol/L 16 Calcium 8.5 - 10.2 mg/dL 9.9 eGFR- ANDgt;60 eGFR-All Other Races . 53 Hemoglobin A1C 4.3 - 5.6 % 7.9 HbA1c value is greater than 15%, consider possibility of hemoglobin variant . . . Estimated Average Glucose mg/dL Unable to calculate because one or more components used in calculation is outside . . . MEDICATIONS: Current Outpatient Prescriptions: furosemide (LASIX) 80 mg tablet Take 0.5 tablets by mouth twice daily. (Patient taking differently: Take 80 mg by mouth twice daily. ) gabapentin (NEURONTIN) 300 mg capsule TAKE 1 CAPSULE THREE TIMES A DAY ULTICARE PEN NEEDLE 31 gauge x 5/16ANDquot; ndle USE 1 NEEDLE PER DOSE 5 TIMES PER DAY insulin glargine (TOUJEO SOLOSTAR) 300 unit/mL (1.5 mL) inpn INJECT 70 UNITS SUBCUTANEOUSLY AT BEDTIME Insulin Lispro, Human, (HUMALOG KWIKPEN) 100 unit/mL inpn Inject 12 Units subcutaneously w MEALS. blood sugar diagnostic (XOS DigitalUCH ULTRA TEST) test strip Test blood sugar(s) 3 times daily. Dx: Type 2 DM - Uncontrolled E11.65 Insulin: no spironolactone (ALDACTONE) 25 mg tablet Take 25 mg by mouth once daily. potassium chloride (K-ELIZABETH, KLOR-CON) 20 mEq packet Take 20 mEq by mouth twice daily. lisinopril 2.5 mg tablet Take 2.5 mg by mouth once daily. atorvastatin (LIPITOR) 40 mg tablet Take 1 tablet by mouth daily at bedtime. For cholesterol. carvedilol (COREG) 6.25 mg tablet Take 0.5 tablets by mouth twice daily with meals. Hold antihypertensives for SBP ANDlt;100. Hold betablockers for HR ANDlt;60 warfarin (COUMADIN) 5 mg tablet Take 5 mg by mouth daily as directed. aspirin, enteric coated (ASPIRIN, ENTERIC COATED) 81 mg EC tablet Take 1 tablet by mouth once daily. Lancets lancets Test blood sugar(s) 2 daily. Dx: 250.00 Insulin: Yes Insulin Syringe-Needle U-100 1 mL 29 syrg Use bid Blood-Glucose Meter monitoring kit Pt testing twice daily and pt dx. dm2 CPAP clopidogrel 75 mg tablet Take 75 mg by mouth once daily. famotidine 40 mg tablet Take 40 mg by mouth once daily. nitroglycerin sublingual 0.4 mg SL tablet Dissolve 0.4 mg under the tongue every 5 minutes as needed. magnesium citrate solution Take 148 mL by mouth as directed. Take one bottle the first day of the prep, as explained on the instruction sheet provided to you. bisacodyl EC (DULCOLAX, BISACODYL,) 5 mg EC tablet Take 1 tablet by mouth as directed. Take two (2) the first day of the prep, as explained on the instruction sheet provided. peg 3350-electrolytes (COLYTE) 240-22.72-6.72 -5.84 gram solution Take 4000 ml as directed. Follow written instructions from the doctor's office. COMPOUNDED PRESCRIPTION Support stockings: 20-30 mmhg, knee high with zipperDX: venous insufficiency OTC PRODUCT DiabetAid capsaicin 0.025% cream, applied to feet daily at bedtime. No current facility-administered medications for this visit. ALLERGIES: ALLERGIES Allergen Reactions - Penicillins Unknown - Tramadol Rash, Itching PAST MEDICAL HISTORY Diagnosis Date - Alcoholism in remission ([facility]) - Apical mural thrombus coumadin per Dr. Willingham - Atrial fibrillation ([facility]) anticoagulation per cardiology - Cardiac defibrillator in place 12/2010 Dr. Willingham - Carotid artery disease ([facility]) biltaer ICA 20-39% stenosis on 05/11/13 - CHF (congestive heart failure) ([facility]) - CVA (cerebral infarction) x 2 - Diabetes ([facility]) type 2 - Heart attack ([facility]) 2009 - History of coronary artery stent placement 05/29/09 LAD, Diag - Hyperlipidemia - Hypertension - Mini stroke ([facility]) 2009 - Neuropathy ([facility]) sees Dr. Arnold - Obstructive sleep apnea on CPAP uses cpap, sees Dr. Miles - PAD (peripheral artery disease) ([facility]) 2006 [facility] - Presence of combination internal cardiac defibrillator (ICD) and pacemaker - RBBB (right bundle branch block) - Valvular heart disease PAST SURGICAL HISTORY Procedure Laterality Date - ARTERY BYPASS 2006 bilateral legs at [facility], [place] - DRAIN FINGER ABSCESS COMPL Right 02/29/2016 I ANDamp; D right middle finger - PAST SURGICAL HISTORY OF 05/29/09 stent LAD, Diag - PAST SURGICAL HISTORY OF AV chris ablation, pacemaker FAMILY HISTORY Problem Relation Age of Onset - Cancer Mother lung - Heart Father - Hypertension Brother Social History Marital status: Spouse name: Years of education: Number of children: 0 Social History Main Topics Smoking status: Former Smoker Packs/day: 0.00 Years: 0.00 Smokeless status: Never Used Alcohol use: No Comment: recovered alcoholic (15years) Drug use: No Comment: 15 years ago Sexual activity: No Reviewed current medications, allergies, past medical history, surgical history, family history and social history today. REVIEW OF SYSTEMS All other reviewed and negative other than HPI. VITALS: BP 103/72 Pulse 80 Resp 16 Wt 94.8 kg (209 lb) BMI 34.78 kg/m2 Last 4 Encounter Wt Readings: Date: Wt: 09/16/2017 94.8 kg (209 lb) 09/03/2017 94.3 kg (208 lb) 04/28/2017 91.2 kg (201 lb) 02/17/2017 83.9 kg (185 lb) PHYSICAL EXAMINATION: General appearance: Well appearing, alert, in no acute distress, well-hydrated, well nourished. Skin: Skin color, texture, turgor normal, no suspicious rashes or lesions, venous stasis changes. Nose. No current epistaxis. Head: Normocephalic, no masses, lesions, tenderness or abnormalities Lungs: Lungs clear to auscultation. No wheezing, rhonchi, rales Heart: RRR without murmur, gallop, or rubs. No ectopy Abdomen: Normal abdominal exam, Abdomen soft, non-tender. Bowel sounds normal. No masses, organomegaly Extremities: No deformities, edema, skin discoloration, clubbing or cyanosis. Good capillary refill. ASSESSMENT/PLAN: 1. Type 2 diabetes mellitus with diabetic neuropathy, with long-term current use of insulin (HCC) - ICD9: 250.60, 357.2, V58.67, ICD10: E11.40, Z79.4 (primary diagnosis) worsening control Poor adherence to plan of care. - Encouraged compliance. Community care is following at home. Will notify them. See pharmacy. - CONSULT TO PHARMACY 2. Renal insufficiency - ICD9: 593.9, ICD10: N28.9 0 recheck labs. - BASIC METABOLIC PNL 3. Atrial fibrillation, unspecified type (HCC) - ICD9: 427.31, ICD10: I48.91 - continue meds. inr followed by cardiology. 4. Alcoholism in remission (HCC) - ICD9: 303.93, ICD10: F10.21 - denies current usage. 5. Ischemic cardiomyopathy - ICD9: 414.8, ICD10: I25.5 - continue meds. 6. Neuropathy (HCC) - ICD9: 355.9, ICD10: G62.9 - stable. 7. Essential hypertension - ICD9: 401.9, ICD10: I10 - good control 8. Mini stroke (HCC) - ICD9: 434.91, ICD10: I63.9 - stable. 9. Epistaxis - ICD9: 784.7, ICD10: R04.0 - reinforced keeping nose moist. Discussed importance of ent follow up. - CONSULT TO ENT 10. Apical mural thrombus - ICD9: 410.10, ICD10: I51.3 - as above. Allen Batres MD RTO in six weeks and prn. Referring Provider: SELF [[id number]] Allergies As of Date: 09/16/2017 Noted Allergy Reaction PENICILLINS 08/15/2013 16 - Unknown TRAMADOL 03/03/2016 2 - Rash 9 - Itching Date Reviewed: 09/03/2017 Reviewed by: Tory Craft LPN - Fully Assessed Reason for Visit: ED Follow Up [973] Cmt: [facility], 09/07/17 Primary Visit Diagnosis:Type 2 diabetes mellitus with diabetic neuropathy, with long-term current use of insulin ([facility]) [E11.40, Z79.4] Other Visit Diagnoses:Renal insufficiency [N28.9] Atrial fibrillation, unspecified type (HCC) [I48.91] Alcoholism in remission (HCC) [F10.21] Ischemic cardiomyopathy [I25.5] Neuropathy (HCC) [G62.9] Essential hypertension [I10] Mini stroke (HCC) [I63.9] Epistaxis [R04.0] Apical mural thrombus [I51.3] Order(s):furosemide (LASIX) 80 mg tabletTake 1 tablet by mouth twice daily.Disp: Rfl: CONSULT TO ENT [9008] Order #: [id number]: 1 CONSULT TO PHARMACY [19990731] Order #: [id number]: 1 BASIC METABOLIC PNL [SQBMP] Order #: [id number] FUTURE Prescriptions as of 09/16/2017 Sig: FUROSEMIDE 80 MG TABLET Take 1 tablet by mouth twice * GABAPENTIN 300 MG CAPSULE TAKE 1 CAPSULE THREE TIMES A * ULTICARE PEN NEEDLE 31 GAUGE * USE 1 NEEDLE PER DOSE 5 TIMES* INSULIN GLARGINE (U-300) 300 * INJECT 70 UNITS SUBCUTANEOUSL* INSULIN LISPRO (U-100) 100 UN* Inject 12 Units subcutaneousl* BLOOD SUGAR DIAGNOSTIC STRIPS Test blood sugar(s) 3 times d* SPIRONOLACTONE 25 MG TABLET Take 25 mg by mouth once eder* POTASSIUM CHLORIDE 20 MEQ ORA* Take 20 mEq by mouth twice da* LISINOPRIL 2.5 MG TABLET Take 2.5 mg by mouth once corine* ATORVASTATIN 40 MG TABLET Take 1 tablet by mouth daily * CARVEDILOL 6.25 MG TABLET Take 0.5 tablets by mouth twi* WARFARIN 5 MG TABLET Take 5 mg by mouth daily as d* ASPIRIN 81 MG TABLET,DELAYED * Take 1 tablet by mouth once d* LANCETS Test blood sugar(s) 2 daily. * INSULIN SYRINGE-NEEDLE U-100 * Use bid BLOOD-GLUCOSE METER KIT Pt testing twice daily and pt* CPAP CLOPIDOGREL 75 MG TABLET Take 75 mg by mouth once eder* FAMOTIDINE 40 MG TABLET Take 40 mg by mouth once eder* NITROGLYCERIN 0.4 MG SUBLINGU* Dissolve 0.4 mg under the ton* MAGNESIUM CITRATE ORAL SOLUTI* Take 148 mL by mouth as direc* BISACODYL 5 MG TABLET,DELAYED* Take 1 tablet by mouth as dir* PEG 3350 240 GRAM-ELECTROLYTE* Take 4000 ml as directed. Fo* COMPOUNDED PRESCRIPTION Support stockings: 20- 30 mmhg* OTC PRODUCT DiabetAid capsaicin 0.025% cr* Problem List As Of Date 09/16/2017 Noted Resolved Diabetes [E11.9] 04/12/2015 Priority: C More... Cardiac defibrillator in place [Z95.810] INVALID FOR* Priority: C More... Hypertension [I10] Priority: C More... Mini stroke [I63.9] Heart attack [I21.9] 04/28/2017 Sleep apnea [G47.30] More... Hyperlipidemia [E78.5] Neuropathy [G62.9] Apical mural thrombus [I51.3] More... Cerebral infarction (HCC) [I63.9] More... PAD (peripheral artery disease) [I73.9] More... 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 Urinary retention [R33.9] INVALID FOR*04/28/2017 Priority: B More... SUMMARY [V999.95] INVALID FOR*10/02/2016 Priority: Very Severe More... Diabetes mellitus with neuropathy (HCC) [E11.40]INVALID FOR*04/12/2015 Type 2 diabetes mellitus with diabetic neuropat*INVALID FOR* Renal insufficiency [N28.9] INVALID FOR* Atrial fibrillation (HCC) [I48.91] INVALID FOR* Visit Notes: >> Shavon Norris Ma ThuSep 16, 2017 11:41 AM Status: Signed HOSPITAL/ER FOLLOW UP: Reason for visit: Nosebleeds,after packing, weak and tired Which facility: [facility] Date of visit: 09/07/17 Diagnosis: Epistaxis, Hyperglycemia Testing done: INR was 2.4, CBC normal except platelets were 138, Chem showed sodium 135, glucose 348, BUN 38, Creatinine 1.47. Troponin negative Treatment given: IV fluids, Insulin, repacked after bleeding slowed down. Pt was to follow up with ENT, pt never went. Pt removed packing himself 2 days later. Current symptoms: Pt denies any more nosebleeds, weakness, fatigue, or black stools. Prescriptions ordered this encounter Disp Refills Start End FUROSEMIDE 80 MG TABLET 09/16/2017 Class: Med Update Route: ORAL Sig: Take 1 tablet by mouth twice daily. Medications Discontinued During This Encounter furosemide (LASIX) 80 mg tablet 09/06/2017 09/16/2017 Class: Med Update Route: ORAL Sig: Take 0.5 tablets by mouth twice daily. Patient taking differently: Take 80 mg by mouth twice daily. Disc: Reason for discontinue is not on file. Disposition: Return in about 6 weeks (around 10/28/2017). Follow-up and Disposition History Recorded Encounter Status:Closed by ALLEN BATRES MD on 09/16/17 12 LEAD ELECTROCARDIOGRAM Observed: 09/13/2017 Status: F Source: [place] 8:57 PM [facility] REPOSITORY [facility] Cardiovascular [place] [address] 12 Lead EKG 09/07/17 1111 MR#: [id number] Acct: [id number] Name: DAKOTAH PRATT Rep #: [id number] : 1960 56 From: Will Braga MD Attending Dr: Status: DEP ER Ordering Dr: Yadira Multani MD Date: 09/07/17 Location: ED Sex: M C Admitted: Test Reason : Blood Pressure : / mmHG Vent. Rate : 080 BPM Atrial Rate : 089 BPM P-R Int : 000 ms QRS Dur : 176 ms QT Int : 490 ms P-R-T Axes : 000 251 071 degrees QTc Int : 565 ms Ventricular-paced rhythm Biventricular pacemaker detected Abnormal ECG Confirmed by WILL BRAGA ([id number]), dictionary editor CHRISTIAN HUIZAR ([id number]) on 09/10/2017 2:44:49 PM Referred By: Keven Willingham Confirmed By:WILL BRAGA 09/10/17 1444 Date Will Braga MD CC: Yadira Multani MD; Allen Batres MD Signed DISCHARGE INSTRUCTION Observed: 09/07/2017 Status: F Source: [place] 2:53 PM [facility] REPOSITORY [facility] Medical Records Department [address] [place] [address] Discharge Instruction 09/07/17 1452 MR#: [id number] Acct: [id number] Name: DAKOATH PRATT Rep #: [id number] : 1960 56 From: Yadira Multani MD PCP: Allen Batres MD Status: [facility] ER ED Disposition - Plan for ED Patient: Chief Complaint: Nosebleed Instructions: Nosebleed Referrals: Allen Batres MD [Primary Care Provider] - Mark Shoemaker MD [STAFF PHYSICIAN] - What to do if you have Problems For any increased pain, shortness of breath, bleeding, nausea or vomiting, chest pain, or any unexpected problems, contact your Primary Care Provider. Call [facility] ([phone]) or report to the closest Emergency Room. Call 911 if necessary. 09/07/17 1453 <Electronically signed by Yadira Multani MD> Date Yadira Multani MD Cosigner Signature (If Indicated): Date CC: Allen Batres MD EMERGENCY DEPARTMENT Observed: 09/07/2017 Status: F Source: [place] SUMMARY 2:52 PM [facility] REPOSITORY [facility] Medical Records Department [address] [place] [address] Emergency Department Summary 09/07/17 1051 MR#: [id number] Acct: [id number] Name: DAKOTAH PRATT Rep #: [id number] : 1960 56 From: Yadira Multani MD PCP: Allen Batres MD Status: REG ER - ER Visit Summary Date of Service: 09/07/17 Chief Complaint: Nosebleed History of Present Illness: The patient is a 56 M presenting with nosebleed which started yesterday. Patient came to the ED and had a packing placed. He states he has had intermittent bleeding since leaving. He states he intermittently will spit out blood. No bleeding from the nose or packing. He states he has felt weak and tired today. He has been lightheaded with no syncope. He denies chest pain or shortness of breath. Physical Examination: Vitals are stable. Patient is afebrile. Alert no acute distress. HEENT exam nasal packing right nare, no blood in posterior pharynx Neck is supple. Lungs are clear and equal bilaterally. Heart is regular rate and rhythm. Abdomen is soft nontender nondistended. Extremities are unremarkable. Skin is warm and dry. No focal neurologic deficit. Remainder of exam is unremarkable. Emergency Department Course and Treatment: EKG is paced at a rate of 80. Chest x-ray shows no acute process. CBC normal except for platelets 138. Chemistry normal except for sodium 135, glucose 348, BUN 38, creatinine 1.47. INR is 2.4. Troponin is negative. Patient given IV fluids, insulin. Repeat BGT 303. Orthostatics are negative. Patient was observed in the ED for several hours. He had no significant bleeding on multiple re-evaluations. He had a small amount of blood in his posterior pharynx on one re-evaluation. On reevaluation this has resolved. Patient is feeling improved. He states his dizziness has resolved. Discussed with Dr. Shoemaker and he will follow-up in the office. Patient is advised return to ED for any worsening complaints. Disposition: Discharge home Impression: Epistaxis, resolved; hyperglycemia This note was generated with [employer] dictation software. It may contain incorrect words, spelling, and punctuation that were not noted in review of the chart prior to signing ED Disposition - Plan for ED Patient: Chief Complaint: Nosebleed Referrals: Allen Batres MD [Primary Care Provider] - What to do if you have Problems For any increased pain, shortness of breath, bleeding, nausea or vomiting, chest pain, or any unexpected problems, contact your Primary Care Provider. Call [facility] ([phone]) or report to the closest Emergency Room. Call 911 if necessary. 09/07/17 1452 <Electronically signed by Yadira Multani MD> Date Yadira Multani MD Cosigner Signature (If Indicated): Date CC: Allen Batres MD BEDSIDE GLUCOSE Collected: 09/07/2017 Status: F Source: [place] 1:13 PM [facility] REPOSITORY TYPE CODE TESTS RESULT OUT OF REFERENCE UNITS RANGE LAB L501.080 70-110 mg/dL High BEDSIDE GLU 303 Result Comment: MANAGEMENT OF PATIENT CARE PER NURSING PROTOCOL Performed By: #### L501.080 #### [facility] Point of Care [address] [facility] [address] CHEST 1 VIEW Observed: 09/07/2017 Status: F Source: [place] (PORTABLE) 10:51 AM [facility] REPOSITORY [facility] Imaging Services [address] [place] [address] Chest 1 View (Portable) MR#: [id number] Acct: [id number] Name: DAKOTAH PRATT Rep #: [id number] : 1960 M 56 From: Mann Prater MD PCP: Allen Batres MD Status: REG ER Study: Chest 1 View (Portable) Date of Exam: 09/07/17 Exam# [id number] Ordering Dr: Ydaira Multani MD STUDY: X-RAY CHEST REASON FOR EXAM: Male, 56 years old. Shortness of breath and dyspnea. TECHNIQUE: Single AP portable view of the chest. COMPARISON: Comparison is made with prior study dated September 07, 2016. FINDINGS: EKG electrodes are seen. The lungs are clear and expanded. There is no demonstrated pleural abnormality. Normal size heart. A left-sided dual-chamber pacemaker is seen. Normal mediastinum and katrina. Normal visualized pulmonary arteries. There is atherosclerotic calcification of the aortic arch with tortuosity. Normal visualized thoracic spine. Normal visualized ribs, clavicles, and shoulders. There is no demonstrated abnormality of the visualized soft tissue structures of the upper abdomen. RAD/Chest 1 View (Portable) IMPRESSION: No acute abnormality is present. Electronically Signed: Mann Prater MD at 11:24 EDT Tel [phone], Service support , CC: Yadira Multani MD; Allen Batres MD Shredding Specialist: Signed BEDSIDE GLUCOSE Collected: 09/07/2017 Status: F Source: [place] 10:42 AM [facility] REPOSITORY TYPE CODE TESTS RESULT OUT OF REFERENCE UNITS RANGE LAB L501.080 70-110 mg/dL High BEDSIDE GLU 400 Result Comment: MANAGEMENT OF PATIENT CARE PER NURSING PROTOCOL Performed By: #### L501.080 #### [facility] [place] [place] Laboratory Point of Care [address] [place] [address] CBC W/DIFF, AUTOMATED Collected: 09/07/2017 Status: F Source: [place] 10:40 AM [facility] REPOSITORY TYPE CODE TESTS RESULT OUT OF RANGE REFERENCE UNITS LAB L100.1000 4.4-11.0 K/mm3 Normal WBC 9.3 LAB L100.1200 4.6-6.2 M/mm3 Normal RBC 5.68 LAB L100.1300 13.0-16.5 g/dl Normal HGB 16.3 LAB L100.1400 40-54 % Normal HCT 48.1 LAB L100.1500 80-94 fL Normal MCV 84.7 LAB L100.1600 27.0-32.0 pg Normal MCH 28.7 LAB L100.1700 32-36 g/gl Normal MCHC 33.9 LAB L100.1810 11.6-14.6 % Normal RDW CV 14.0 LAB L100.1820 35.1-43.9 fl Normal RDW SD 43.0 LAB L100.1900 150-450 K/mm3 Low PLT 138 LAB L100.2000 6.2-12.0 fl Normal MPV 10.5 LAB L100.2100 47-70 % High NEUT% 80.6 LAB L100.2200 19-41 % Low LY% 12.9 LAB L100.2300 0-10 % Normal MONO% 5.1 LAB L100.2400 0-5 % Normal EO% 0.8 LAB L100.2500 0-1 % Normal BASO% 0.1 LAB L100.2550 0.0-0.9 % Normal IM GRAN % 0.500 Result Comment: IG% - Immature Granulocytes (promyelocytes, myelocytes and metamyelocytes) > 1% indicates that a LEFT SHIFT is Present. LAB L100.2620 2.0-7.7 X10 3/uL Normal Absolute Neut 7.5 LAB L100.2720 0.83-4.51 X10 3/ul Normal Absolute Lymph 1.19 Performed By: #### L100.0100 #### [facility] [address] [facility] [place], [address] BASIC METABOLIC Collected: 09/07/2017 Status: F Source: [place] PROFILE ([facility]) 10:40 AM [facility] REPOSITORY Order Comment: 'TROP' Serial specimen #1, #2, #3, or #4: 1 TYPE CODE TESTS RESULT OUT OF RANGE REFERENCE UNITS LAB L501.0100 74-106 mg/dL High GLU 348 Result Comment: Glucose result greater than or equal to 200 mg/dL suggests DIABETES MELLITUS per A.D.A. criteria. Please note revised GLUCOSE reference range effective 2017. LAB L501.1000 7-18 mg/dL High BUN 38 LAB L501.1100 0.70-1.30 mg/dL High CREAT,SERUM 1.47 Result Comment: The validity of the calculated GFR AND GFRAA in patients over 70 years has not been determined. Clinical correlation is essential. LAB L501.1110 >60 mL/min Low EST GFR 53 Result Comment: Non- GFR Calc LAB L501.1115 >60 mL/min Normal EST GFR - AA 64 Result Comment: GFR Calc LAB L501.1255 ml/min Normal Estimated CRCL 48.10 LAB L501.1300 10-20 RATIO High BUN/CRE 25.9 LAB L501.2200 8.5-10 mg/dL Normal .1 CA 8.9 LAB L501.5300 136-14 mmol/L Low 5 NA 135 LAB L501.5600 3.5-5. mmol/L Normal 1 K 5.1 LAB L501.5900 98-107 mmol/L Normal CL 100 LAB L501.6100 21.0-3 mmol/L Normal 2.0 CO2 25.0 LAB L501.6200 5-15 Normal GAP 10 Performed By: #### L500.2500, L501.4010 #### [facility] [address] [facility] [place], [place], [address] TROPONIN-I Collected: 09/07/2017 Status: F Source: [place] 10:40 AM [facility] REPOSITORY Order Comment: 'TROP' Serial specimen #1, #2, #3, or #4: 1 TYPE CODE TESTS RESULT OUT OF RANGE REFERENCE UNITS LAB L501.4010 <0.06 ng/mL Normal < 0.02 TROPONIN-I Result Comment: TROPONIN-I EXPECTED VALUES <0.05 NEGATIVE 0.06 - 0.59 AT RISK OF UT > OR = 0.60 SUGGEST UT Performed By: #### L500.2500, L501.4010 #### [facility] [address] [facility] [place], [place], [address] PROTHROMBIN TIME W/INR Collected: 09/07/2017 Status: F Source: [place] 10:40 AM [facility] REPOSITORY TYPE CODE TESTS RESULT OUT OF RANGE REFERENCE UNITS LAB L300.4150 11.7-14.9 SECONDS High PROTIME 26.2 LAB L300.4200 Normal INR 2.4 Performed By: #### L300.3900 #### [facility] [address] [place], [address] PROGRESS Observed: 09/07/2017 Status: COMPLETED Source: [place] 9:51 AM [facility] REPOSITORY HNO ID: [id number] Author: Allen Batres Service: (none) Author Type: Physician Type: Progress Notes Filed: 09/07/2017 9:53 AM Note Text: Patient not officially seen. Apparently was seen last pm and had nose packed at ED. Is still leaking around packing. Actually has Cup full of bloody mucous. I explained to him that we do not have anything to treat him for that and he would be better for us to send him to ENT this am or ER. He then states he feels to tired and weak to transport himself. Squad called. No chest pain or shortness of breath. Vitals stable. CNOV Observed: 09/07/2017 Status: COMPLETED Source: [place] 9:20 AM [facility] REPOSITORY Office Visit (FAMPWS) DAKOTAH PRATT JR ([id number]) 1960 M Date Time Provider Department 09/07/17 9:20 AM ALLEN BATRES During your visit today, we recorded the following information about you: Allen Batres MD 09/07/2017 9:53 AM Signed Patient not officially seen. Apparently was seen last pm and had nose packed at ED. Is still leaking around packing. Actually has Cup full of bloody mucous. I explained to him that we do not have anything to treat him for that and he would be better for us to send him to ENT this am or ER. He then states he feels to tired and weak to transport himself. Squad called. No chest pain or shortness of breath. Vitals stable. Referring Provider: SELF [200] Allergies As of Date: 09/07/2017 Noted Allergy Reaction PENICILLINS 08/15/2013 16 - Unknown TRAMADOL 03/03/2016 2 - Rash 9 - Itching Date Reviewed: 09/03/2017 Reviewed by: Tory Craft LPN - Fully Assessed Primary Visit Diagnosis:Epistaxis [R04.0] Prescriptions as of 09/07/2017 Sig: FUROSEMIDE 80 MG TABLET Take 0.5 tablets by mouth twi* GABAPENTIN 300 MG CAPSULE TAKE 1 CAPSULE THREE TIMES A * ULTICARE PEN NEEDLE 31 GAUGE * USE 1 NEEDLE PER DOSE 5 TIMES* INSULIN GLARGINE (U-300) 300 * INJECT 70 UNITS SUBCUTANEOUSL* MAGNESIUM CITRATE ORAL SOLUTI* Take 148 mL by mouth as direc* BISACODYL 5 MG TABLET,DELAYED* Take 1 tablet by mouth as dir* INSULIN LISPRO (U-100) 100 UN* Inject 12 Units subcutaneousl* BLOOD SUGAR DIAGNOSTIC STRIPS Test blood sugar(s) 3 times d* SPIRONOLACTONE 25 MG TABLET Take 25 mg by mouth once eder* POTASSIUM CHLORIDE 20 MEQ ORA* Take 20 mEq by mouth twice da* LISINOPRIL 2.5 MG TABLET Take 2.5 mg by mouth once corine* ATORVASTATIN 40 MG TABLET Take 1 tablet by mouth daily * CARVEDILOL 6.25 MG TABLET Take 0.5 tablets by mouth twi* WARFARIN 5 MG TABLET Take 5 mg by mouth daily as d* PEG 3350 240 GRAM-ELECTROLYTE* Take 4000 ml as directed. Fo* ASPIRIN 81 MG TABLET,DELAYED * Take 1 tablet by mouth once d* LANCETS Test blood sugar(s) 2 daily. * COMPOUNDED PRESCRIPTION Support stockings: 20- 30 mmhg* INSULIN SYRINGE-NEEDLE U-100 * Use bid OTC PRODUCT DiabetAid capsaicin 0.025% cr* BLOOD-GLUCOSE METER KIT Pt testing twice daily and pt* CPAP CLOPIDOGREL 75 MG TABLET Take 75 mg by mouth once eder* FAMOTIDINE 40 MG TABLET Take 40 mg by mouth once eder* NITROGLYCERIN 0.4 MG SUBLINGU* Dissolve 0.4 mg under the ton* Problem List As Of Date 09/07/2017 Noted Resolved Diabetes [E11.9] 04/12/2015 Priority: C More... Cardiac defibrillator in place [Z95.810] INVALID FOR* Priority: C More... Hypertension [I10] Priority: C More... Mini stroke [I63.9] Heart attack [I21.9] 04/28/2017 Sleep apnea [G47.30] More... Hyperlipidemia [E78.5] Neuropathy [G62.9] Apical mural thrombus [I51.3] More... Cerebral infarction (HCC) [I63.9] More... PAD (peripheral artery disease) [I73.9] More... 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 Urinary retention [R33.9] INVALID FOR*04/28/2017 Priority: B More... SUMMARY [V999.95] INVALID FOR*10/02/2016 Priority: Very Severe More... Diabetes mellitus with neuropathy (HCC) [E11.40]INVALID FOR*04/12/2015 Type 2 diabetes mellitus with diabetic neuropat*INVALID FOR* Renal insufficiency [N28.9] INVALID FOR* Atrial fibrillation (HCC) [I48.91] INVALID FOR* Encounter Status:Closed by ALLEN BATRES MD on 09/07/17 EMERGENCY DEPARTMENT Observed: 09/06/2017 Status: F Source: [place] SUMMARY 11:07 PM [facility] REPOSITORY [facility] Medical Records Department [address] [place] [address] Emergency Department Summary 09/06/17 2304 MR#: [id number] Acct: [id number] Name: DAKOTAH PRATT Rep #: [id number] : 1960 56 From: Paco Lau MD PCP: Allen Batres MD Status: REG ER - ER Visit Summary Date of Service: 09/06/17 Chief Complaint: Epistaxis History of Present Illness: The patient is a 56 M who presents with epistaxis. It began about 11 hours ago and has been intermittent since that time. He does have a history of prior similar symptoms. He is on aspirin, Plavix, warfarin due to a significant coronary artery disease, peripheral vascular disease and congestive heart failure history. He denies any chest pain shortness of breath lightheadedness dizziness. Physical Examination: Afebrile vitals are stable Patient has some dried blood in the right nare and some dry irritated mucosa along the nasal septum no clear single source of bleeding Heart regular rate and rhythm Lungs are clear Abdomen soft Alert Test Results: INR is 3.3 Emergency Department Course and Treatment: Afrin was instilled in the right nare. A lidocaine soaked cotton ball was placed for some topical anesthesia. An anterior 5-1/2 cm Rhino Rocket type packing was placed. The patient had some reverse lacrimal flow with some blood at the right eye. The pressure in the balloon was decreased and the balloon was slightly pulled back and this resolved. Epistaxis appears controlled. The patient was referred to Dr. Duque for follow-up and discharged home. Treatment Plan: [] Disposition: Discharge Impression: Epistaxis This note was generated with [employer] dictation software. It may contain incorrect words, spelling, and punctuation that were not noted in review of the chart prior to signing ED Disposition - Plan for ED Patient: Chief Complaint: Nosebleed Referrals: Allen Batres MD [Primary Care Provider] - What to do if you have Problems For any increased pain, shortness of breath, bleeding, nausea or vomiting, chest pain, or any unexpected problems, contact your Primary Care Provider. Call [facility] ([phone]) or report to the closest Emergency Room. Call 911 if necessary. 09/06/172306 <Electronically signed by Paco Lau MD> Date Paco Lau MD Cosigner Signature (If Indicated): Date CC: Allen Batres MD DISCHARGE INSTRUCTION Observed: 09/06/2017 Status: F Source: [place] 11:07 PM [facility] REPOSITORY [facility] Medical Records Department [address] [place] [address] [place] [address] Discharge Instruction 09/06/172306 MR#: [id number] Acct: [id number] Name: DAKOTAH PRATT Rep #: [id number] : 1960 56 From: Paco Lau MD PCP: Allen Batres MD Status: REG ER ED Disposition - Plan for ED Patient: Chief Complaint: Nosebleed Instructions: Nosebleed Referrals: Allen Batres MD [Primary Care Provider] - Brandon Blackwood MD [STAFF PHYSICIAN] - What to do if you have Problems For any increased pain, shortness of breath, bleeding, nausea or vomiting, chest pain, or any unexpected problems, contact your Primary Care Provider. Call [facility] ([phone]) or report to the closest Emergency Room. Call 911 if necessary. 09/06/172306 <Electronically signed by Paco Lau MD> Date Paco Lau MD Cosigner Signature (If Indicated): Date CC: Allen Batres MD PROTIME W/INR Collected: 09/06/2017 Status: F [facility] 10:52 PM [facility] REPOSITORY TYPE CODE TESTS RESULT OUT OF REFERENCE UNITS RANGE LAB L9200.1001 11.9-14.4 SEC High PROTIME ISTAT 37.9 Result Comment: Reference Range 11.9 - 14.4 LAB L9200.2000 Normal INR ISTAT 3.30 Result Comment: Critical Value > 3.5 Performed By: #### L9200.0000 #### [facility] Point of Care [address] [place] [id number] CBC Collected: 09/03/2017 Status: F Source: [place] 4:19 PM [facility] REPOSITORY TYPE CODE TESTS RESULT OUT OF REFERENCE UNITS RANGE LAB WBC 3.70-11.00 k/uL WBC 7.02 LAB RBC 4.20-6.00 m/uL RBC 5.70 LAB HGB 13.0-17.0 g/dL Hemoglobin 16.0 LAB HCT 39.0-51.0 % Hematocrit 48.3 LAB MCV 80.0-100.0 fL MCV 84.7 LAB MCH 26.0-34.0 pG MCH 28.1 LAB MCHC 30.5-36.0 g/dL MCHC 33.1 LAB RDWCV 11.5-15.0 % RDW-CV 13.7 LAB PLTCT 150-400 k/uL Platelet Count 181 LAB MPV 9.0-12.7 fL MPV 11.3 LAB ABSNUC <0.01 k/uL Absolute nRBC <0.01 Performed By: #### CBC, BMP, HBA1C #### [facility] [address] [place], [place] [address] BASIC METABOLIC PANL Collected: 09/03/2017 Status: F Source: [place] 4:19 PM [facility] REPOSITORY TYPE CODE TESTS RESULT OUT OF REFERENCE UNITS RANGE LAB GLU 74-99 mg/dL High Glucose 408 Result Comment: The [place] [employer] (ADA) provides guidance for cutoff values for fasting glucose and random glucose. The ADA defines fasting as no caloric intake for at least 8 hours. Fas ting plasma glucose results between 100 to 125 mg/dL indicate increased risk for diabetes (prediabetes). Fasting plasma glucose results greater than or equal to 126 mg/dL meet the criteria for diagnosis of diabetes. In the absence of unequivocal hyperglycemia, results should be confirmed by repeat testing. In a patient with classic symptoms of hyperglycemia or hyperglycemic crisis, random plasma glucose results greater than or equal to 200 mg/dL meet the criteria for diagnosis of diabetes. Reference: Standards of Medical Care in Diabetes 2016, [place] [employer]. Diabetes Care. 2016.39(Suppl 1). LAB BUN 9-24 mg/dL BUN High 33 LAB CRET 0.73-1.22 mg/dL Creatinine High 1.39 LAB NA 136-144 mmol/L Low Sodium 130 LAB K 3.7-5.1 mmol/L Potassium 4.5 LAB CL 97-105 mmol/L Low Chloride 90 LAB CO2 22-30 mmol/L CO2 24 LAB AGAP 9-18 mmol/L Anion Gap 16 LAB CA 8.5-10.2 mg/dL Calcium, Total 9.9 LAB GFRAA eGFR- Amer. >60 LAB GFRNAA . eGFR-All Other Races 53 Result Comment: eGFR (Estimated GFR) Units of measure: mL/min/1.73 meters squared eGFR is derived from the reexpressed MDRD Study equation using the following parameters: serum creatinine, age, gender and race. The creatinine assay has been calibrated to be traceable to IDMS. An eGFR <60 mL/min/1.73m2 for >3 months is consistent with chronic kidney disease. Refer to KDOQI guidelines for clinical interpretation. In patients with unstable renal function, e.g. those with acute kidney injury, the eGFR may not accurately reflect actual GFR. Performed By: #### CBC, BMP, HBA1C #### [facility] [place] [address] [place], [place] [address] HEMOGLOBIN A1C Collected: 09/03/2017 Status: F Source: [place] 4:19 PM [facility] REPOSITORY TYPE CODE TESTS RESULT OUT OF REFERENCE UNITS RANGE LAB HGBA1C 4.3-5.6 % HbA1c Hemoglobin A1c value is greater than 15%, consider possibility of hemoglobin variant interference. LAB HBA0 mg/dL Est. Unable Average Glucose to calculate because one or more components used in calculation is outside assay range. Performed By: #### CBC, BMP, HBA1C #### [facility] [place] [address] [place], [place] [address] PROGRESS Observed: 09/03/2017 Status: COMPLETED Source: [place] 3:50 PM [facility] REPOSITORY HNO ID: [id number] Author: Demetrius Pacheco ([place] Woods Service: (none) Author Type: Physician Masonry Teacher Type: Progress Notes Filed: 09/04/2017 5:15 AM Note Text: 56 year old male here for routine check. 1. Taking medication as directed consistently? Yes Medical Issues / Complications: hypertension, hyperlipidemia, peripheral neuropathy, PAD and cardiovascular disease Checking blood sugars at home? Yes. 180-240 Watching diet? Yes Physical Activity: Regular Hypoglycemic spells? No Any visual disturbance? No Chest pain? No New numbness, tingling or loss of sensation? No, chronic loss of sensation in fingers and feet. Any recent foot problems, sores or rashes? No Any recent or sudden weight loss? No Any recent illness? No Renal protective agent? Yes ASA daily? Yes Statin therapy? Yes Last eye exam: . No [facility] covered physician in [place] that accepts his insurance. Last foot exam: 08/06/[address] Samaniego HBA1C: Hemoglobin A1C Date Value 05/04/2017 7.9 02/03/2017 7.1 % 10/03/2016 7.2 05/07/2016 7.8 % ) CMP: Glucose 408 09/03/2017 BUN 33 09/03/2017 Creatinine 1.39 09/03/2017 Sodium 130 09/03/2017 Potassium 4.5 09/03/2017 Chloride 90 09/03/2017 CO2 24 09/03/2017 Protein, Total 7.8 02/03/2017 Albumin 4.2 01/23/2016 Calcium 9.9 09/03/2017 Alkaline Phosphatase 203 02/11/2017 Bilirubin, Total 1.2 02/03/2017 AST 21 02/03/2017 ALT 14 02/03/2017 Last 2 Encounter Wt Readings: Date: Wt: 09/03/2017 94.3 kg (208 lb) 04/28/2017 91.2 kg (201 lb) 2. HTN: Current meds: Carvedilol, Lisinopril, Lasix Patient is compliant with meds Yes Monitors bp at home: Yes. If yes, readings: 100-110/60-70 Denies side effects: Yes. Chest pain: No. Dyspnea: No. Edema: No. Palpitations: No. Syncope: No. Headache: No. Dizziness: No. Last 3 Encounter BP Readings: Date: BP: 09/03/2017 96/72 08/03/2017 101/71 04/28/2017 100/68 Last 2 Encounter Wt Readings: Date: Wt: 09/03/2017 94.3 kg (208 lb) 04/28/2017 91.2 kg (201 lb) 3. Hyperlipidemia: Taking medication consistently Yes Observing low cholesterol high fiber diet Yes Muscle aches No Stomach complaints/ diarrhea No Component Latest Ref Rng AND Units 01/23/2016 05/04/2017 Triglyceride 137 86 Cholesterol, Total 100 - 199 mg/dL 117 HDL Cholesterol 40 - 59 MG/DL 31 (L) 45 VLDL Cholesterol 6 - 40 mg/dL 27 LDL Cholesterol 59 (L) 63 Fasting Time hrs FASTING TC:HDL Ratio 1.00 - 5.00 3.77 LDL:HDL Ratio 0.50 - 3.55 1.90 Non HDL Cholesterol 90 - 159 mg/dL 86 (L) Cholesterol, Total 0 - 200 MG/DL 125 4. CARDIAC/ AICD, apical mural thrombus/ ischemis cardiomyopathy EF 15%/ AF on coumadin: Followed by Dr. Willingham. Last interrogation per our records 01/08/17 with no hx of shocks. As above denies chest pain, resting SOB, dyspnea, orthopnea, racing or irregular heartbeats, palpitations, syncopal sx, nausea, or heartburn. SOB easily with exercise. INRs followed by Dr. Willingham. 5. PAD/ hx bifem-pop bypass: following with Dr. Del Angel with recent visit. No claudication. Has outstanding orders for imaging carotids, aorta and lower extremity US and PVR. Seeing Dr. Samaniego for foot care, following a callous on left foot. Has no sensation. He wears diabetic shoes, lotions feet daily. 6. JUAN DIEGO: wearing CPAP routinely. 7. 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 8. Bruising noted on chest and abdomen. Recalls no injury. HISTORIES FAMILY HISTORY Problem Relation Age of Onset - Cancer Mother lung - Heart Father - Hypertension Brother PAST MEDICAL HISTORY Diagnosis Date - Alcoholism in remission ([facility]) - Apical mural thrombus coumadin per Dr. Willingham - Atrial fibrillation ([facility]) anticoagulation per cardiology - Cardiac defibrillator in place 12/2010 Dr. Willingham - Carotid artery disease ([facility]) biltaer ICA 20-39% stenosis on 05/11/13 - CHF (congestive heart failure) ([facility]) - CVA (cerebral infarction) x 2 - Diabetes ([facility]) type 2 - Heart attack ([facility]) 2009 - History of coronary artery stent placement 05/29/09 LAD, Diag - Hyperlipidemia - Hypertension - Mini stroke ([facility]) 2009 - Neuropathy ([facility]) sees Dr. Arnold - Obstructive sleep apnea on CPAP uses cpap, sees Dr. Miles - PAD (peripheral artery disease) ([facility]) 2006 [facility] - Presence of combination internal cardiac defibrillator (ICD) and pacemaker - RBBB (right bundle branch block) - Valvular heart disease PAST SURGICAL HISTORY Procedure Laterality Date - ARTERY BYPASS 2006 bilateral legs at [facility], [place] - DRAIN FINGER ABSCESS COMPL Right 02/29/2016 I AND D right middle finger - PAST SURGICAL HISTORY OF 05/29/09 stent LAD, Diag - PAST SURGICAL HISTORY OF AV chris ablation, pacemaker Social History Marital status: Spouse name: Years of education: Number of children: 0 Social History Main Topics Smoking status: Former Smoker Packs/day: 0.00 Years: 0.00 Smokeless status: Never Used Alcohol use: No Comment: recovered alcoholic (15years) Drug use: No Comment: 15 years ago Sexual activity: No ACTIVE PROBLEM LIST Cardiac Defibrillator in Place Hypertension Mini Stroke ([facility]) Sleep Apnea Hyperlipidemia Neuropathy ([facility]) Apical Mural Thrombus Cerebral Infarction ([facility]) PAD (peripheral artery disease) Alcoholism in Remission ([facility]) Valvular Heart Disease Carotid Stenosis Ischemic Cardiomyopathy Type 2 Diabetes Mellitus With Diabetic Neuropathy ([facility]) Renal Insufficiency Atrial Fibrillation ([facility]) Current Outpatient Prescriptions: gabapentin (NEURONTIN) 300 mg capsule TAKE 1 CAPSULE THREE TIMES A DAY Disp: 84 capsule Rfl: 1 insulin glargine (TOUJEO SOLOSTAR) 300 unit/mL (1.5 mL) inpn INJECT 70 UNITS SUBCUTANEOUSLY AT BEDTIME Disp: 27 mL Rfl: 4 bisacodyl EC (DULCOLAX, BISACODYL,) 5 mg EC tablet Take 1 tablet by mouth as directed. Take two (2) the first day of the prep, as explained on the instruction sheet provided. Disp: 2 tablet Rfl: 0 Insulin Lispro, Human, (HUMALOG KWIKPEN) 100 unit/mL inpn Inject 12 Units subcutaneously w MEALS. Disp: 5 Pen Rfl: 5 furosemide (LASIX) 80 mg tablet Take 80 mg by mouth twice daily. Disp: Rfl: spironolactone (ALDACTONE) 25 mg tablet Take 25 mg by mouth once daily. Disp: Rfl: potassium chloride (K-ELIZABETH, KLOR-CON) 20 mEq packet Take 20 mEq by mouth twice daily. Disp: Rfl: lisinopril 2.5 mg tablet Take 2.5 mg by mouth once daily. Disp: Rfl: atorvastatin (LIPITOR) 40 mg tablet Take 1 tablet by mouth daily at bedtime. For cholesterol. Disp: Rfl: carvedilol (COREG) 6.25 mg tablet Take 0.5 tablets by mouth twice daily with meals. Hold antihypertensives for SBP <100. Hold betablockers for HR <60 Disp: 180 tablet Rfl: 3 warfarin (COUMADIN) 5 mg tablet Take 5 mg by mouth daily as directed. Disp: Rfl: aspirin, enteric coated (ASPIRIN, ENTERIC COATED) 81 mg EC tablet Take 1 tablet by mouth once daily. Disp: 30 tablet Rfl: 0 clopidogrel 75 mg tablet Take 75 mg by mouth once daily. Disp: Rfl: famotidine 40 mg tablet Take 40 mg by mouth once daily. Disp: Rfl: nitroglycerin sublingual 0.4 mg SL tablet Dissolve 0.4 mg under the tongue every 5 minutes as needed. Disp: Rfl: ULTICARE PEN NEEDLE 31 gauge x 5/16 ndle USE 1 NEEDLE PER DOSE 5 TIMES PER DAY Disp: 150 Each Rfl: 11 magnesium citrate solution Take 148 mL by mouth as directed. Take one bottle the first day of the prep, as explained on the instruction sheet provided to you. Disp: 148 mL Rfl: 0 blood sugar diagnostic (ONETOUCH ULTRA TEST) test strip Test blood sugar(s) 3 times daily. Dx: Type 2 DM - Uncontrolled E11.65 Insulin: no Disp: 50 Strip Rfl: 11 peg 3350-electrolytes (COLYTE) 240-22.72-6.72 -5.84 gram solution Take 4000 ml as directed. Follow written instructions from the doctor's office. Disp: 1 Container Rfl: 0 Lancets lancets Test blood sugar(s) 2 daily. Dx: 250.00 Insulin: Yes Disp: 100 Each Rfl: 11 COMPOUNDED PRESCRIPTION Support stockings: 20-30 mmhg, knee high with zipperDX: venous insufficiency Disp: 1 Each Rfl: 3 Insulin Syringe-Needle U-100 1 mL 29 syrg Use bid Disp: 100 Syringe Rfl: 11 OTC PRODUCT DiabetAid capsaicin 0.025% cream, applied to feet daily at bedtime. Disp: Rfl: 0 Blood-Glucose Meter monitoring kit Pt testing twice daily and pt dx. dm2 Disp: 1 Each Rfl: 0 CPAP Disp: Rfl: No current facility-administered medications for this visit. DILATED RETINAL EXAM due on 01/18/2016 URINE ALBUMIN CREATININE RATIO due on 01/22/2017 HBA1C due on 08/03/2017 EXAM: BP 96/72 Pulse 76 Temp 36.3 ?C (97.3 ?F) (Tympanic) Resp 16 Wt 94.3 kg (208 lb) BMI 34.61 kg/m2 90/64 on my check Pleasant adult male in no acute distress. Alert and oriented all spheres. Normal affect and cognition. Speech normal. No deficits to learning or comprehension. Skin warm, dry, pink to lips and nailbeds. Normal turgor. Has large purplish bruise over his right upper chest device with palpable hematoma. Also 4cm circular bruise on lower abdomen. Respirations regular and unlabored. HEENT WNL. Sclera clear.TM's clear. Nose and oropharynx free from injection or lesion. No cervical lymph nodes. Thyroid non- tender, no masses. Carotid pulses 2/4+ without bruit Chest CTA. HRRR without murmur or gallop. Extrem: no clubbing, cyanosis, edema. Extremities are warm and pink with prompt capillary refill. Legs with brauny coloration, thick skin. Feet are pulseless. Small callus left little toe. ASSESSMENT/PLAN: 1. Cardiac defibrillator in place - ICD9: V45.02, ICD10: Z95.810 (primary diagnosis) Stable, no shocks. Followed by Dr. Willingham. Need to verify device checks as would be overdue from our records. 2. Essential hypertension - ICD9: 401.9, ICD10: I10 - BP is too low. Concerning with bruising and risk of bleeding. He has not held medications as home BP has no been unde 100/syst. No signs of failure. - BASIC METABOLIC PNL - CBC 3. Sleep apnea, unspecified type - ICD9: 780.57, ICD10: G47.30 Wearing CPAP routinely 4. Hyperlipidemia, unspecified hyperlipidemia type - ICD9: 272.4, ICD10: E78.5 - good control - Continue current medication. 5. Neuropathy (HCC) - ICD9: 355.9, ICD10: G62.[address] Samaniego for foot care 6. Apical mural thrombus - ICD9: 410.10, ICD10: I51.3 On coumadin 7. Alcoholism in remission (HCC) - ICD9: 303.93, ICD10: F10.21 persists 8. Ischemic cardiomyopathy - ICD9: 414.8, ICD10: I25.[address] Willingham - BASIC METABOLIC PNL 9. Type 2 diabetes mellitus with diabetic neuropathy, with long-term current use of insulin (HCC) - ICD9: 250.60, 357.2, V58.67, ICD10: E11.40, Z79.4 worsening control: labs. - BASIC METABOLIC PNL - HGB A1C 10. Renal insufficiency - ICD9: 593.9, ICD10: N28.9 stable - BASIC METABOLIC PNL 11. Hypotension, unspecified hypotension type - ICD9: 458.9, ICD10: I95.9 Asymptomatic but concerning with low EF. Return for recheck in 1 week, push fluids - CBC - BASIC METABOLIC PNL 12. HX: snf anticoagulant use - ICD9: V87.49, ICD10: Z92.29 - CBC - PROTHROMBIN TIME/PT F/u in 1 week recheck BP, 3 months OV M Junior Woods PA-C CNOV Observed: 09/03/2017 Status: COMPLETED Source: [place] 3:20 PM [facility] RE[facility] DAKOTAH PRATT JR ([id number]) 1960 M Date Time Provider Department 09/03/17 3:20 PM Demetrius WOODS) [facility] During your visit today, we recorded the following information about you: Temperature Pulse Respiration Blood pressure 97.3 degrees 76/minute 16/minute 96/72 Weight 94.3 kg M Junior Woods PA-C 09/04/2017 5:15 AM Signed 56 year old male here for routine check. 1. Taking medication as directed consistently? Yes Medical Issues / Complications: hypertension, hyperlipidemia, peripheral neuropathy, PAD and cardiovascular disease Checking blood sugars at home? Yes. 180-240 Watching diet? Yes Physical Activity: Regular Hypoglycemic spells? No Any visual disturbance? No Chest pain? No New numbness, tingling or loss of sensation? No, chronic loss of sensation in fingers and feet. Any recent foot problems, sores or rashes? No Any recent or sudden weight loss? No Any recent illness? No Renal protective agent? Yes ASA daily? Yes Statin therapy? Yes Last eye exam: . No F covered physician in [place] that accepts his insurance. Last foot exam: 08/06/[address] Samaniego HBA1C: Hemoglobin A1C Date Value 05/04/2017 7.9 02/03/2017 7.1 % 10/03/2016 7.2 05/07/2016 7.8 % ) CMP: Glucose 408 09/03/2017 BUN 33 09/03/2017 Creatinine 1.39 09/03/2017 Sodium 130 09/03/2017 Potassium 4.5 09/03/2017 Chloride 90 09/03/2017 CO2 24 09/03/2017 Protein, Total 7.8 02/03/2017 Albumin 4.2 01/23/2016 Calcium 9.9 09/03/2017 Alkaline Phosphatase 203 02/11/2017 Bilirubin, Total 1.2 02/03/2017 AST 21 02/03/2017 ALT 14 02/03/2017 Last 2 Encounter Wt Readings: Date: Wt: 09/03/2017 94.3 kg (208 lb) 04/28/2017 91.2 kg (201 lb) 2. HTN: Current meds: Carvedilol, Lisinopril, Lasix Patient is compliant with meds Yes Monitors bp at home: Yes. If yes, readings: 100-110/60-70 Denies side effects: Yes. Chest pain: No. Dyspnea: No. Edema: No. Palpitations: No. Syncope: No. Headache: No. Dizziness: No. Last 3 Encounter BP Readings: Date: BP: 09/03/2017 96/72 08/03/2017 101/71 04/28/2017 100/68 Last 2 Encounter Wt Readings: Date: Wt: 09/03/2017 94.3 kg (208 lb) 04/28/2017 91.2 kg (201 lb) 3. Hyperlipidemia: Taking medication consistently Yes Observing low cholesterol high fiber diet Yes Muscle aches No Stomach complaints/ diarrhea No Component Latest Ref Rng ANDamp; Units 01/23/2016 05/04/2017 Triglyceride 137 86 Cholesterol, Total 100 - 199 mg/dL 117 HDL Cholesterol 40 - 59 MG/DL 31 (L) 45 VLDL Cholesterol 6 - 40 mg/dL 27 LDL Cholesterol 59 (L) 63 Fasting Time hrs FASTING TC:HDL Ratio 1.00 - 5.00 3.77 LDL:HDL Ratio 0.50 - 3.55 1.90 Non HDL Cholesterol 90 - 159 mg/dL 86 (L) Cholesterol, Total 0 - 200 MG/DL 125 4. CARDIAC/ AICD, apical mural thrombus/ ischemis cardiomyopathy EF 15%/ AF on coumadin: Followed by Dr. Willingham. Last interrogation per our records 01/08/17 with no hx of shocks. As above denies chest pain, resting SOB, dyspnea, orthopnea, racing or irregular heartbeats, palpitations, syncopal sx, nausea, or heartburn. SOB easily with exercise. INRs followed by Dr. Willingham. 5. PAD/ hx bifem-pop bypass: following with Dr. Del Angel with recent visit. No claudication. Has outstanding orders for imaging carotids, aorta and lower extremity US and PVR. Seeing Dr. Samaniego for foot care, following a callous on left foot. Has no sensation. He wears diabetic shoes, lotions feet daily. 6. JUAN DIEGO: wearing CPAP routinely. 7. 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 8. Bruising noted on chest and abdomen. Recalls no injury. HISTORIES FAMILY HISTORY Problem Relation Age of Onset - Cancer Mother lung - Heart Father - Hypertension Brother PAST MEDICAL HISTORY Diagnosis Date - Alcoholism in remission ([facility]) - Apical mural thrombus coumadin per Dr. Willingham - Atrial fibrillation ([facility]) anticoagulation per cardiology - Cardiac defibrillator in place 12/2010 Dr. Willingham - Carotid artery disease ([facility]) biltaer ICA 20-39% stenosis on 05/11/13 - CHF (congestive heart failure) ([facility]) - CVA (cerebral infarction) x 2 - Diabetes ([facility]) type 2 - Heart attack ([facility]) 2009 - History of coronary artery stent placement 05/29/09 LAD, Diag - Hyperlipidemia - Hypertension - Mini stroke ([facility]) 2009 - Neuropathy ([facility]) sees Dr. Arnold - Obstructive sleep apnea on CPAP uses cpap, sees Dr. Miles - PAD (peripheral artery disease) ([facility]) 2006 [facility] - Presence of combination internal cardiac defibrillator (ICD) and pacemaker - RBBB (right bundle branch block) - Valvular heart disease PAST SURGICAL HISTORY Procedure Laterality Date - ARTERY BYPASS 2006 bilateral legs at [facility], [place] - DRAIN FINGER ABSCESS COMPL Right 02/29/2016 I ANDamp; D right middle finger - PAST SURGICAL HISTORY OF 05/29/09 stent LAD, Diag - PAST SURGICAL HISTORY OF AV chris ablation, pacemaker Social History Marital status: Spouse name: Years of education: Number of children: 0 Social History Main Topics Smoking status: Former Smoker Packs/day: 0.00 Years: 0.00 Smokeless status: Never Used Alcohol use: No Comment: recovered alcoholic (15years) Drug use: No Comment: 15 years ago Sexual activity: No ACTIVE PROBLEM LIST Cardiac Defibrillator in Place Hypertension Mini Stroke ([facility]cc) Sleep Apnea Hyperlipidemia Neuropathy ([facility]cc) Apical Mural Thrombus Cerebral Infarction ([facility]) PAD (peripheral artery disease) Alcoholism in Remission ([facility]) Valvular Heart Disease Carotid Stenosis Ischemic Cardiomyopathy Type 2 Diabetes Mellitus With Diabetic Neuropathy ([facility]cc) Renal Insufficiency Atrial Fibrillation ([facility]cc) Current Outpatient Prescriptions: gabapentin (NEURONTIN) 300 mg capsule TAKE 1 CAPSULE THREE TIMES A DAY Disp: 84 capsule Rfl: 1 insulin glargine (TOUJEO SOLOSTAR) 300 unit/mL (1.5 mL) inpn INJECT 70 UNITS SUBCUTANEOUSLY AT BEDTIME Disp: 27 mL Rfl: 4 bisacodyl EC (DULCOLAX, BISACODYL,) 5 mg EC tablet Take 1 tablet by mouth as directed. Take two (2) the first day of the prep, as explained on the instruction sheet provided. Disp: 2 tablet Rfl: 0 Insulin Lispro, Human, (HUMALOG KWIKPEN) 100 unit/mL inpn Inject 12 Units subcutaneously w MEALS. Disp: 5 Pen Rfl: 5 furosemide (LASIX) 80 mg tablet Take 80 mg by mouth twice daily. Disp: Rfl: spironolactone (ALDACTONE) 25 mg tablet Take 25 mg by mouth once daily. Disp: Rfl: potassium chloride (K-ELIZABETH, KLOR-CON) 20 mEq packet Take 20 mEq by mouth twice daily. Disp: Rfl: lisinopril 2.5 mg tablet Take 2.5 mg by mouth once daily. Disp: Rfl: atorvastatin (LIPITOR) 40 mg tablet Take 1 tablet by mouth daily at bedtime. For cholesterol. Disp: Rfl: carvedilol (COREG) 6.25 mg tablet Take 0.5 tablets by mouth twice daily with meals. Hold antihypertensives for SBP ANDlt;100. Hold betablockers for HR ANDlt;60 Disp: 180 tablet Rfl: 3 warfarin (COUMADIN) 5 mg tablet Take 5 mg by mouth daily as directed. Disp: Rfl: aspirin, enteric coated (ASPIRIN, ENTERIC COATED) 81 mg EC tablet Take 1 tablet by mouth once daily. Disp: 30 tablet Rfl: 0 clopidogrel 75 mg tablet Take 75 mg by mouth once daily. Disp: Rfl: famotidine 40 mg tablet Take 40 mg by mouth once daily. Disp: Rfl: nitroglycerin sublingual 0.4 mg SL tablet Dissolve 0.4 mg under the tongue every 5 minutes as needed. Disp: Rfl: ULTICARE PEN NEEDLE 31 gauge x 5/16ANDquot; ndle USE 1 NEEDLE PER DOSE 5 TIMES PER DAY Disp: 150 Each Rfl: 11 magnesium citrate solution Take 148 mL by mouth as directed. Take one bottle the first day of the prep, as explained on the instruction sheet provided to you. Disp: 148 mL Rfl: 0 blood sugar diagnostic (ONETOUCH ULTRA TEST) test strip Test blood sugar(s) 3 times daily. Dx: Type 2 DM - Uncontrolled E11.65 Insulin: no Disp: 50 Strip Rfl: 11 peg 3350-electrolytes (COLYTE) 240-22.72-6.72 -5.84 gram solution Take 4000 ml as directed. Follow written instructions from the doctor's office. Disp: 1 Container Rfl: 0 Lancets lancets Test blood sugar(s) 2 daily. Dx: 250.00 Insulin: Yes Disp: 100 Each Rfl: 11 COMPOUNDED PRESCRIPTION Support stockings: 20-30 mmhg, knee high with zipperDX: venous insufficiency Disp: 1 Each Rfl: 3 Insulin Syringe-Needle U-100 1 mL 29 syrg Use bid Disp: 100 Syringe Rfl: 11 OTC PRODUCT DiabetAid capsaicin 0.025% cream, applied to feet daily at bedtime. Disp: Rfl: 0 Blood-Glucose Meter monitoring kit Pt testing twice daily and pt dx. dm2 Disp: 1 Each Rfl: 0 CPAP Disp: Rfl: No current facility-administered medications for this visit. DILATED RETINAL EXAM due on 01/18/2016 URINE ALBUMIN CREATININE RATIO due on 01/22/2017 HBA1C due on 08/03/2017 EXAM: BP 96/72 Pulse 76 Temp 36.3 ?C (97.3 ?F) (Tympanic) Resp 16 Wt 94.3 kg (208 lb) BMI 34.61 kg/m2 90/64 on my check Pleasant adult male in no acute distress. Alert and oriented all spheres. Normal affect and cognition. Speech normal. No deficits to learning or comprehension. Skin warm, dry, pink to lips and nailbeds. Normal turgor. Has large purplish bruise over his right upper chest device with palpable hematoma. Also 4cm circular bruise on lower abdomen. Respirations regular and unlabored. HEENT WNL. Sclera clear.TM's clear. Nose and oropharynx free from injection or lesion. No cervical lymph nodes. Thyroid non-tender, no masses. Carotid pulses 2/4+ without bruit Chest CTA. HRRR without murmur or gallop. Extrem: no clubbing, cyanosis, edema. Extremities are warm and pink with prompt capillary refill. Legs with brauny coloration, thick skin. Feet are pulseless. Small callus left little toe. ASSESSMENT/PLAN: 1. Cardiac defibrillator in place - ICD9: V45.02, ICD10: Z95.810 (primary diagnosis) Stable, no shocks. Followed by Dr. Willingham. Need to verify device checks as would be overdue from our records. 2. Essential hypertension - ICD9: 401.9, ICD10: I10 - BP is too low. Concerning with bruising and risk of bleeding. He has not held medications as home BP has no been unde 100/syst. No signs of failure. - BASIC METABOLIC PNL - CBC 3. Sleep apnea, unspecified type - ICD9: 780.57, ICD10: G47.30 Wearing CPAP routinely 4. Hyperlipidemia, unspecified hyperlipidemia type - ICD9: 272.4, ICD10: E78.5 - good control - Continue current medication. 5. Neuropathy (HCC) - ICD9: 355.9, ICD10: G62.[address] Samaniego for foot care 6. Apical mural thrombus - ICD9: 410.10, ICD10: I51.3 On coumadin 7. Alcoholism in remission (HCC) - ICD9: 303.93, ICD10: F10.21 persists 8. Ischemic cardiomyopathy - ICD9: 414.8, ICD10: I25.[address] Willingham - BASIC METABOLIC PNL 9. Type 2 diabetes mellitus with diabetic neuropathy, with long-term current use of insulin (HCC) - ICD9: 250.60, 357.2, V58.67, ICD10: E11.40, Z79.4 worsening control: labs. - BASIC METABOLIC PNL - HGB A1C 10. Renal insufficiency - ICD9: 593.9, ICD10: N28.9 stable - BASIC METABOLIC PNL 11. Hypotension, unspecified hypotension type - ICD9: 458.9, ICD10: I95.9 Asymptomatic but concerning with low EF. Return for recheck in 1 week, push fluids - CBC - BASIC METABOLIC PNL 12. HX: snf anticoagulant use - ICD9: V87.49, ICD10: Z92.29 - CBC - PROTHROMBIN TIME/PT F/u in 1 week recheck BP, 3 months OV M Junior Woods PA-C Referring Provider: SELF [200] Allergies As of Date: 09/03/2017 Noted Allergy Reaction PENICILLINS 08/15/2013 16 - Unknown TRAMADOL 03/03/2016 2 - Rash 9 - Itching Date Reviewed: 09/03/2017 Reviewed by: Tory Craft LPN - Fully Assessed Reason for Visit: Blood Pressure Check [195] Lipids [63] Primary Visit Diagnosis:Cardiac defibrillator in place [Z95.810] Other Visit Diagnoses:Essential hypertension [I10] Sleep apnea, unspecified type [G47.30] Hyperlipidemia, unspecified hyperlipidemia type [E78.5] Neuropathy (HCC) [G62.9] Apical mural thrombus [I51.3] Alcoholism in remission (HCC) [F10.21] Ischemic cardiomyopathy [I25.5] Type 2 diabetes mellitus with diabetic neuropathy, with long-term current use of insulin (HCC) [E11.40, Z79.4] Renal insufficiency [N28.9] Hypotension, unspecified hypotension type [I95.9] 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 [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] Order(s):HBA1C (OUTSIDE) [1699418] Order #: [id number] CBC [SQCBC] Order #: [id number] FUTURE BASIC METABOLIC PNL [SQBMP] Order #: [id number] FUTURE HGB A1C [XIVCO5W] Order #: [id number] FUTURE PROTHROMBIN TIME/PT [SQPT] Order #: [id number] FUTURE Prescriptions as of 09/03/2017 Sig: GABAPENTIN 300 MG CAPSULE TAKE 1 CAPSULE THREE TIMES A * INSULIN GLARGINE (U-300) 300 * INJECT 70 UNITS SUBCUTANEOUSL* BISACODYL 5 MG TABLET,DELAYED* Take 1 tablet by mouth as dir* INSULIN LISPRO (U-100) 100 UN* Inject 12 Units subcutaneousl* FUROSEMIDE 80 MG TABLET Take 80 mg by mouth twice corine* SPIRONOLACTONE 25 MG TABLET Take 25 mg by mouth once eder* POTASSIUM CHLORIDE 20 MEQ ORA* Take 20 mEq by mouth twice da* LISINOPRIL 2.5 MG TABLET Take 2.5 mg by mouth once corine* ATORVASTATIN 40 MG TABLET Take 1 tablet by mouth daily * CARVEDILOL 6.25 MG TABLET Take 0.5 tablets by mouth twi* WARFARIN 5 MG TABLET Take 5 mg by mouth daily as d* ASPIRIN 81 MG TABLET,DELAYED * Take 1 tablet by mouth once d* CLOPIDOGREL 75 MG TABLET Take 75 mg by mouth once eder* FAMOTIDINE 40 MG TABLET Take 40 mg by mouth once eder* NITROGLYCERIN 0.4 MG SUBLINGU* Dissolve 0.4 mg under the ton* ULTICARE PEN NEEDLE 31 GAUGE * USE 1 NEEDLE PER DOSE 5 TIMES* MAGNESIUM CITRATE ORAL SOLUTI* Take 148 mL by mouth as direc* BLOOD SUGAR DIAGNOSTIC STRIPS Test blood sugar(s) 3 times d* PEG 3350 240 GRAM-ELECTROLYTE* Take 4000 ml as directed. Fo* LANCETS Test blood sugar(s) 2 daily. * COMPOUNDED PRESCRIPTION Support stockings: 20- 30 mmhg* INSULIN SYRINGE-NEEDLE U-100 * Use bid OTC PRODUCT DiabetAid capsaicin 0.025% cr* BLOOD-GLUCOSE METER KIT Pt testing twice daily and pt* CPAP Problem List As Of Date 09/03/2017 Noted Resolved Diabetes [E11.9] 04/12/2015 Priority: C More... Cardiac defibrillator in place [Z95.810] INVALID FOR* Priority: C More... Hypertension [I10] Priority: C More... Mini stroke [I63.9] Heart attack [I21.9] 04/28/2017 Sleep apnea [G47.30] More... Hyperlipidemia [E78.5] Neuropathy [G62.9] Apical mural thrombus [I51.3] More... Cerebral infarction (HCC) [I63.9] More... PAD (peripheral artery disease) [I73.9] More... 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 Urinary retention [R33.9] INVALID FOR*04/28/2017 Priority: B More... SUMMARY [V999.95] INVALID FOR*10/02/2016 Priority: Very Severe More... Diabetes mellitus with neuropathy (HCC) [E11.40]INVALID FOR*04/12/2015 Type 2 diabetes mellitus with diabetic neuropat*INVALID FOR* Renal insufficiency [N28.9] INVALID FOR* Atrial fibrillation (HCC) [I48.91] INVALID FOR* Disposition: Return in about 3 months (around 12/03/2017). Follow-up and Disposition History Recorded Encounter Status:Closed by Demetrius WOODS PA-C on 09/04/17 PROTHROMBIN TIME W/INR Collected: 09/03/2017 Status: F Source: [place] 2:55 PM [facility] REPOSITORY TYPE CODE TESTS RESULT OUT OF RANGE REFERENCE UNITS LAB L300.4150 11.7-14.9 SECONDS High PROTIME 34.9 LAB L300.4200 Normal INR 3.4 Performed By: #### L300.3900 #### [facility] [address] [place], [address] CNOV Observed: 08/06/2017 Status: COMPLETED Source: [place] 8:55 AM [facility] REPOSITORY Office Visit (PODIWS) DAKOTAH PRATT JR ([id number]) 1960 M Date Time Provider Department 08/06/17 8:55 AM JEANINE SAMANIEGO PODIWS During your visit today, we recorded the following information about you: Jeanine Samaniego DPM 08/06/2017 8:56 AM Signed Follow up podiatric office visit for: Chief Complaint: This 56 year old who presents for follow up:callus/eschar of right 5th toe. Patient has recently seen Dr. Del Angel and further vascular work-up is pending. Patient states he is doing well. He has been wearing diabetic shoes and applying lotion to his feet. He denies any other issues. PAIN EVALUATION No data found. Hemoglobin A1C Date Value Ref Range Status 02/03/2017 7.1 (H) 4.3 - 5.6 % Final Comment: [place] [employer] guidelines indicate that patients with HgbA1c in the range 5.7-6.4% are at increased risk for development of diabetes, and intervention by lifestyle modification may be beneficial. HgbA1c greater or equal to 6.5% is considered diagnostic of diabetes. PCP: Allen Batres MD PAST MEDICAL HISTORY Diagnosis Date - Alcoholism in remission ([facility]) - Apical mural thrombus coumadin per Dr. Willingham - Atrial fibrillation ([facility]) anticoagulation per cardiology - Cardiac defibrillator in place 12/2010 Dr. Willingham - Carotid artery disease ([facility]) biltaer ICA 20-39% stenosis on 05/11/13 - CHF (congestive heart failure) ([facility]) - CVA (cerebral infarction) x 2 - Diabetes ([facility]) type 2 - Heart attack ([facility]) 2009 - History of coronary artery stent placement 05/29/09 LAD, Diag - Hyperlipidemia - Hypertension - Mini stroke ([facility]) 2009 - Neuropathy ([facility]) sees Dr. Arnold - Obstructive sleep apnea on CPAP uses cpap, sees Dr. Miles - PAD (peripheral artery disease) ([facility]) 2006 [facility] - Presence of combination internal cardiac defibrillator (ICD) and pacemaker - RBBB (right bundle branch block) - Valvular heart disease Current Outpatient Prescriptions: gabapentin (NEURONTIN) 300 mg capsule TAKE 1 CAPSULE THREE TIMES A DAY ULTICARE PEN NEEDLE 31 gauge x 5/16ANDquot; ndle USE 1 NEEDLE PER DOSE 5 TIMES PER DAY insulin glargine (TOUJEO SOLOSTAR) 300 unit/mL (1.5 mL) inpn INJECT 70 UNITS SUBCUTANEOUSLY AT BEDTIME magnesium citrate solution Take 148 mL by mouth as directed. Take one bottle the first day of the prep, as explained on the instruction sheet provided to you. bisacodyl EC (DULCOLAX, BISACODYL,) 5 mg EC tablet Take 1 tablet by mouth as directed. Take two (2) the first day of the prep, as explained on the instruction sheet provided. Insulin Lispro, Human, (HUMALOG KWIKPEN) 100 unit/mL inpn Inject 12 Units subcutaneously w MEALS. blood sugar diagnostic (ONETOUCH ULTRA TEST) test strip Test blood sugar(s) 3 times daily. Dx: Type 2 DM - Uncontrolled E11.65 Insulin: no furosemide (LASIX) 80 mg tablet Take 80 mg by mouth twice daily. spironolactone (ALDACTONE) 25 mg tablet Take 25 mg by mouth once daily. potassium chloride (K-ELIZABETH, KLOR-CON) 20 mEq packet Take 20 mEq by mouth twice daily. lisinopril 2.5 mg tablet Take 2.5 mg by mouth once daily. atorvastatin (LIPITOR) 40 mg tablet Take 1 tablet by mouth daily at bedtime. For cholesterol. carvedilol (COREG) 6.25 mg tablet Take 0.5 tablets by mouth twice daily with meals. Hold antihypertensives for SBP ANDlt;100. Hold betablockers for HR ANDlt;60 warfarin (COUMADIN) 5 mg tablet Take 5 mg by mouth daily as directed. peg 3350-electrolytes (COLYTE) 240-22.72-6.72 -5.84 gram solution Take 4000 ml as directed. Follow written instructions from the doctor's office. aspirin, enteric coated (ASPIRIN, ENTERIC COATED) 81 mg EC tablet Take 1 tablet by mouth once daily. Lancets lancets Test blood sugar(s) 2 daily. Dx: 250.00 Insulin: Yes COMPOUNDED PRESCRIPTION Support stockings: 20-30 mmhg, knee high with zipperDX: venous insufficiency Insulin Syringe-Needle U-100 1 mL 29 syrg Use bid OTC PRODUCT DiabetAid capsaicin 0.025% cream, applied to feet daily at bedtime. Blood-Glucose Meter monitoring kit Pt testing twice daily and pt dx. dm2 CPAP clopidogrel 75 mg tablet Take 75 mg by mouth once daily. famotidine 40 mg tablet Take 40 mg by mouth once daily. nitroglycerin sublingual 0.4 mg SL tablet Dissolve 0.4 mg under the tongue every 5 minutes as needed. No current facility-administered medications for this visit. ALLERGIES Allergen Reactions - Penicillins Unknown - Tramadol Rash, Itching PAST SURGICAL HISTORY Procedure Laterality Date - ARTERY BYPASS 2006 bilateral legs at [facility] - DRAIN FINGER ABSCESS COMPL Right 02/29/2016 I ANDamp; D right middle finger - PAST SURGICAL HISTORY OF 05/29/09 stent LAD, Diag - PAST SURGICAL HISTORY OF AV chris ablation, pacemaker Physical Exam: Constitutional: Pt is a well developed 56 year old male who is alert, oriented, cooperative and in no apparent distress. OBJECTIVE: NVSI unchanged from previous visit. Dermatological: Nails 1-5 b/l are normal. Webspaces clean and dry 1-4 b/l. Skin appears well hydrated and supple. good color, texture, turgor. No open lesions present. Dry eschar/callus to right 5th toe. No ulceration is noted. Musculoskeletal/Orthopaedic: Patient has no pain to palpation of b/l feet ASSESSMENT: (I73.9) PAD (peripheral artery disease) ([facility]) (primary encounter diagnosis) (85.9) Hyperkeratosis PLAN: 1. History and physical examination completed today. 2. Patient was examined and informed of current findings. Callus of right 5th toe is stable. There is no ulceration at this time. Continue with lotion and diabetic shoes. Await further vascular work-up by Dr. Del Angel. 3. If patient develops any sores, he is to present to ed immediately. 4. F/u in 2 weeks Jeanine Samaniego DPM Referring Provider: JEANINE SAMANIEGO [[id number]] Allergies As of Date: 08/06/2017 Noted Allergy Reaction PENICILLINS 08/15/2013 16 - Unknown TRAMADOL 03/03/2016 2 - Rash 9 - Itching Date Reviewed: 08/06/2017 Reviewed by: Yaz Long RN - Fully Assessed Reason for Visit: Recheck [92] Primary Visit Diagnosis:PAD (peripheral artery disease) ([facility]) [I73.9] Other Visit Diagnosis:Hyperkeratosis [L85.9] Prescriptions as of 08/06/2017 Sig: GABAPENTIN 300 MG CAPSULE TAKE 1 CAPSULE THREE TIMES A * ULTICARE PEN NEEDLE 31 GAUGE * USE 1 NEEDLE PER DOSE 5 TIMES* INSULIN GLARGINE (U-300) 300 * INJECT 70 UNITS SUBCUTANEOUSL* MAGNESIUM CITRATE ORAL SOLUTI* Take 148 mL by mouth as direc* BISACODYL 5 MG TABLET,DELAYED* Take 1 tablet by mouth as dir* INSULIN LISPRO (U-100) 100 UN* Inject 12 Units subcutaneousl* BLOOD SUGAR DIAGNOSTIC STRIPS Test blood sugar(s) 3 times d* FUROSEMIDE 80 MG TABLET Take 80 mg by mouth twice corine* SPIRONOLACTONE 25 MG TABLET Take 25 mg by mouth once eder* POTASSIUM CHLORIDE 20 MEQ ORA* Take 20 mEq by mouth twice da* LISINOPRIL 2.5 MG TABLET Take 2.5 mg by mouth once corine* ATORVASTATIN 40 MG TABLET Take 1 tablet by mouth daily * CARVEDILOL 6.25 MG TABLET Take 0.5 tablets by mouth twi* WARFARIN 5 MG TABLET Take 5 mg by mouth daily as d* PEG 3350 240 GRAM-ELECTROLYTE* Take 4000 ml as directed. Fo* ASPIRIN 81 MG TABLET,DELAYED * Take 1 tablet by mouth once d* LANCETS Test blood sugar(s) 2 daily. * COMPOUNDED PRESCRIPTION Support stockings: 20- 30 mmhg* INSULIN SYRINGE-NEEDLE U-100 * Use bid OTC PRODUCT DiabetAid capsaicin 0.025% cr* BLOOD-GLUCOSE METER KIT Pt testing twice daily and pt* CPAP CLOPIDOGREL 75 MG TABLET Take 75 mg by mouth once eder* FAMOTIDINE 40 MG TABLET Take 40 mg by mouth once eder* NITROGLYCERIN 0.4 MG SUBLINGU* Dissolve 0.4 mg under the ton* Problem List As Of Date 08/06/2017 Noted Resolved Diabetes [E11.9] 04/12/2015 Priority: C More... Cardiac defibrillator in place [Z95.810] INVALID FOR* Priority: C More... Hypertension [I10] Priority: C More... Mini stroke [I63.9] Heart attack [I21.9] 04/28/2017 Sleep apnea [G47.30] More... Hyperlipidemia [E78.5] Neuropathy [G62.9] Apical mural thrombus [I51.3] More... Cerebral infarction (HCC) [I63.9] More... PAD (peripheral artery disease) [I73.9] More... 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 Urinary retention [R33.9] INVALID FOR*04/28/2017 Priority: B More... SUMMARY [V999.95] INVALID FOR*10/02/2016 Priority: Very Severe More... Diabetes mellitus with neuropathy (HCC) [E11.40]INVALID FOR*04/12/2015 Type 2 diabetes mellitus with diabetic neuropat*INVALID FOR* Renal insufficiency [N28.9] INVALID FOR* Atrial fibrillation (HCC) [I48.91] INVALID FOR* Encounter Status:Closed by JEANINE SAMANIEGO DPM on 08/06/17 PROGRESS Observed: 08/06/2017 Status: COMPLETED Source: [place] 8:52 AM [facility] REPOSITORY O ID: [id number] Author: Jeanine Samaniego Service: (none) Author Type: Physician Type: Progress Notes Filed: 08/06/2017 8:56 AM Note Text: Follow up podiatric office visit for: Chief Complaint: This 56 year old who presents for follow up:callus/eschar of right 5th toe. Patient has recently seen Dr. Del Angel and further vascular work-up is pending. Patient states he is doing well. He has been wearing diabetic shoes and applying lotion to his feet. He denies any other issues. PAIN EVALUATION No data found. Hemoglobin A1C Date Value Ref Range Status 02/03/2017 7.1 (H) 4.3 - 5.6 % Final Comment: [place] [employer] guidelines indicate that patients with HgbA1c in the range 5.7-6.4% are at increased risk for development of diabetes, and intervention by lifestyle modification may be beneficial. HgbA1c greater or equal to 6.5% is considered diagnostic of diabetes. PCP: Allen Batres MD PAST MEDICAL HISTORY Diagnosis Date - Alcoholism in remission ([facility]) - Apical mural thrombus coumadin per Dr. Willingham - Atrial fibrillation ([facility]) anticoagulation per cardiology - Cardiac defibrillator in place 12/2010 Dr. Willingham - Carotid artery disease ([facility]) biltaer ICA 20-39% stenosis on 05/11/13 - CHF (congestive heart failure) ([facility]) - CVA (cerebral infarction) x 2 - Diabetes ([facility]) type 2 - Heart attack ([facility]) 2009 - History of coronary artery stent placement 05/29/09 LAD, Diag - Hyperlipidemia - Hypertension - Mini stroke ([facility]) 2009 - Neuropathy ([facility]) sees Dr. Arnold - Obstructive sleep apnea on CPAP uses cpap, sees Dr. Miles - PAD (peripheral artery disease) ([facility]) 2006 [facility] - Presence of combination internal cardiac defibrillator (ICD) and pacemaker - RBBB (right bundle branch block) - Valvular heart disease Current Outpatient Prescriptions: gabapentin (NEURONTIN) 300 mg capsule TAKE 1 CAPSULE THREE TIMES A DAY ULTICARE PEN NEEDLE 31 gauge x 10/07 ndle USE 1 NEEDLE PER DOSE 5 TIMES PER DAY insulin glargine (TOUJEO SOLOSTAR) 300 unit/mL (1.5 mL) inpn INJECT 70 UNITS SUBCUTANEOUSLY AT BEDTIME magnesium citrate solution Take 148 mL by mouth as directed. Take one bottle the first day of the prep, as explained on the instruction sheet provided to you. bisacodyl EC (DULCOLAX, BISACODYL,) 5 mg EC tablet Take 1 tablet by mouth as directed. Take two (2) the first day of the prep, as explained on the instruction sheet provided. Insulin Lispro, Human, (HUMALOG KWIKPEN) 100 unit/mL inpn Inject 12 Units subcutaneously w MEALS. blood sugar diagnostic (XOS DigitalUCH ULTRA TEST) test strip Test blood sugar(s) 3 times daily. Dx: Type 2 DM - Uncontrolled E11.65 Insulin: no furosemide (LASIX) 80 mg tablet Take 80 mg by mouth twice daily. spironolactone (ALDACTONE) 25 mg tablet Take 25 mg by mouth once daily. potassium chloride (K-ELIZABETH, KLOR-CON) 20 mEq packet Take 20 mEq by mouth twice daily. lisinopril 2.5 mg tablet Take 2.5 mg by mouth once daily. atorvastatin (LIPITOR) 40 mg tablet Take 1 tablet by mouth daily at bedtime. For cholesterol. carvedilol (COREG) 6.25 mg tablet Take 0.5 tablets by mouth twice daily with meals. Hold antihypertensives for SBP <100. Hold betablockers for HR <60 warfarin (COUMADIN) 5 mg tablet Take 5 mg by mouth daily as directed. peg 3350-electrolytes (COLYTE) 240-22.72-6.72 -5.84 gram solution Take 4000 ml as directed. Follow written instructions from the doctor's office. aspirin, enteric coated (ASPIRIN, ENTERIC COATED) 81 mg EC tablet Take 1 tablet by mouth once daily. Lancets lancets Test blood sugar(s) 2 daily. Dx: 250.00 Insulin: Yes COMPOUNDED PRESCRIPTION Support stockings: 20-30 mmhg, knee high with zipperDX: venous insufficiency Insulin Syringe-Needle U-100 1 mL 29 syrg Use bid OTC PRODUCT DiabetAid capsaicin 0.025% cream, applied to feet daily at bedtime. Blood-Glucose Meter monitoring kit Pt testing twice daily and pt dx. dm2 CPAP clopidogrel 75 mg tablet Take 75 mg by mouth once daily. famotidine 40 mg tablet Take 40 mg by mouth once daily. nitroglycerin sublingual 0.4 mg SL tablet Dissolve 0.4 mg under the tongue every 5 minutes as needed. No current facility-administered medications for this visit. ALLERGIES Allergen Reactions - Penicillins Unknown - Tramadol Rash, Itching PAST SURGICAL HISTORY Procedure Laterality Date - ARTERY BYPASS 2006 bilateral legs at [facility], [place] - DRAIN FINGER ABSCESS COMPL Right 02/29/2016 I AND D right middle finger - PAST SURGICAL HISTORY OF 05/29/09 stent LAD, Diag - PAST SURGICAL HISTORY OF AV chris ablation, pacemaker Physical Exam: Constitutional: Pt is a well developed 56 year old male who is alert, oriented, cooperative and in no apparent distress. OBJECTIVE: NVSI unchanged from previous visit. Dermatological: Nails 1-5 b/l are normal. Webspaces clean and dry 1-4 b/l. Skin appears well hydrated and supple. good color, texture, turgor. No open lesions present. Dry eschar/callus to right 5th toe. No ulceration is noted. Musculoskeletal/Orthopaedic: Patient has no pain to palpation of b/l feet ASSESSMENT: (I73.9) PAD (peripheral artery disease) ([facility]) (primary encounter diagnosis) (85.9) Hyperkeratosis PLAN: 1. History and physical examination completed today. 2. Patient was examined and informed of current findings. Callus of right 5th toe is stable. There is no ulceration at this time. Continue with lotion and diabetic shoes. Await further vascular work-up by Dr. Del Angel. 3. If patient develops any sores, he is to present to ed immediately. 4. F/u in 2 weeks Jeanine Samaniego DPM PROGRESS Observed: 08/03/2017 Status: COMPLETED Source: [place] 8:58 AM [facility] REPOSITORY HNO ID: [id number] Author: Ana Maria Del Angel Service: (none) Author Type: Physician Type: Progress Notes Filed: 08/03/2017 8:59 AM Note Text: This office note has been dictated. Ana Maria Del Angel DO CNOV Observed: 08/03/2017 Status: COMPLETED Source: [place] 8:30 AM [facility] REPOSITORY Office Visit (VASSWS) ARIANA BOYKINDAKOTAH Duran ([id number]) 1960 M Date Time Provider Department 08/03/17 8:30 AM ANA MARIA DEL ANGEL During your visit today, we recorded the following information about you: Pulse Blood pressure 80/minute 101/71 Ana Maria Del Angel DO 08/03/2017 8:59 AM Signed This office note has been dictated. Ana Maria Del Angel DO Referring Provider: JEANINE SAMANIEGO [[id number]] Allergies As of Date: 08/03/2017 Noted Allergy Reaction PENICILLINS 08/15/2013 16 - Unknown TRAMADOL 03/03/2016 2 - Rash 9 - Itching Date Reviewed: 08/03/2017 Reviewed by: Rivera Dukes RN - Fully Assessed Reason for Visit: Established Patient [175] Primary Visit Diagnosis:Peripheral arterial disease (HCC) [I73.9] Order(s):US ABD AORTA COMPLETE [facility] [[id number]] Order #: [id number] FUTURE PVR LEG TANIA [facility] [[id number]] Order #: [id number] FUTURE US LEG ARTERIAL PERIPH UNL [facility] [[id number]] Order #: [id number] FUTURE Prescriptions as of 08/03/2017 Sig: GABAPENTIN 300 MG CAPSULE TAKE 1 CAPSULE THREE TIMES A * ULTICARE PEN NEEDLE 31 GAUGE * USE 1 NEEDLE PER DOSE 5 TIMES* INSULIN GLARGINE (U-300) 300 * INJECT 70 UNITS SUBCUTANEOUSL* MAGNESIUM CITRATE ORAL SOLUTI* Take 148 mL by mouth as direc* BISACODYL 5 MG TABLET,DELAYED* Take 1 tablet by mouth as dir* INSULIN LISPRO (U-100) 100 UN* Inject 12 Units subcutaneousl* BLOOD SUGAR DIAGNOSTIC STRIPS Test blood sugar(s) 3 times d* FUROSEMIDE 80 MG TABLET Take 80 mg by mouth twice corine* SPIRONOLACTONE 25 MG TABLET Take 25 mg by mouth once eder* POTASSIUM CHLORIDE 20 MEQ ORA* Take 20 mEq by mouth twice da* LISINOPRIL 2.5 MG TABLET Take 2.5 mg by mouth once corine* ATORVASTATIN 40 MG TABLET Take 1 tablet by mouth daily * CARVEDILOL 6.25 MG TABLET Take 0.5 tablets by mouth twi* WARFARIN 5 MG TABLET Take 5 mg by mouth daily as d* PEG 3350 240 GRAM-ELECTROLYTE* Take 4000 ml as directed. Fo* ASPIRIN 81 MG TABLET,DELAYED * Take 1 tablet by mouth once d* LANCETS Test blood sugar(s) 2 daily. * COMPOUNDED PRESCRIPTION Support stockings: 20- 30 mmhg* INSULIN SYRINGE-NEEDLE U-100 * Use bid OTC PRODUCT DiabetAid capsaicin 0.025% cr* BLOOD-GLUCOSE METER KIT Pt testing twice daily and pt* CPAP CLOPIDOGREL 75 MG TABLET Take 75 mg by mouth once eder* FAMOTIDINE 40 MG TABLET Take 40 mg by mouth once eder* NITROGLYCERIN 0.4 MG SUBLINGU* Dissolve 0.4 mg under the ton* Problem List As Of Date 08/03/2017 Noted Resolved Diabetes [E11.9] 04/12/2015 Priority: C More... Cardiac defibrillator in place [Z95.810] INVALID FOR* Priority: C More... Hypertension [I10] Priority: C More... Mini stroke [I63.9] Heart attack [I21.9] 04/28/2017 Sleep apnea [G47.30] More... Hyperlipidemia [E78.5] Neuropathy [G62.9] Apical mural thrombus [I51.3] More... Cerebral infarction (HCC) [I63.9] More... PAD (peripheral artery disease) [I73.9] More... 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 Urinary retention [R33.9] INVALID FOR*04/28/2017 Priority: B More... SUMMARY [V999.95] INVALID FOR*10/02/2016 Priority: Very Severe More... Diabetes mellitus with neuropathy (HCC) [E11.40]INVALID FOR*04/12/2015 Type 2 diabetes mellitus with diabetic neuropat*INVALID FOR* Renal insufficiency [N28.9] INVALID FOR* Atrial fibrillation (HCC) [I48.91] INVALID FOR* Encounter Status:Closed by ANA MARIA DEL ANGEL DO on 08/03/17 PROGRESS Observed: 08/03/2017 Status: COMPLETED Source: [place] 12:00 AM [facility] REPOSITORY O ID: [id number] Author: Ana Maria Del Angel Service: Vascular Surgery Author Type: Physician Type: Progress Notes Filed: 08/12/2017 11:56 AM Note Text: NAME: DAKOTAH PRATT JR [facility] NO: [id number] DATE OF SERVICE: 08/03/2017 Subjective: Mr. Pratt is here to follow up on peripheral arterial disease. He has a history of an aortobifem and he has undergone revisions with his common femoral arteries. He was recently seen by Dr. Samaniego, who is concerned about a small callus on the right 5th toe. He states it has been there for a long period of time. He states in the winter he just likes to sleep and has seasonal depression. He states he had gained weight and is now up 208 and his blood sugars are running in the 200-300s. Objective: He is in no distress. He has nonpalpable distal pulses. He has evidence of venous insufficiency and hyperpigmentation. His capillary refill is approximately 4 seconds. Assessment/Plan: 1. Severe peripheral arterial disease. 2. Congestive heart failure. 3. Diabetes. We will get aortic duplex and right lower extremity duplex and updated PVRs. He is to continue to follow up with Dr. Samaniego and will follow up with me after testing. He is at high risk for surgical intervention. He does have a known SFA occlusion on that right side. Would not recommend aggressive debridement of any foot ulcerations. He will call me with any concerns, or follow up sooner as needed. Otherwise, he will follow up after his testing. Ana Maria Del Angel D.O. KB/[id number] Audio #: [id number] Date Dictated: 08/03/2017 07:57:39 Date Typed: 08/12/2017 10:49:49 Date Revised: XR FOOT 3V AP/LAT/OBL Observed: 07/27/2017 Status: F Source: [place] 4:50 PM [facility] REPOSITORY * * *Final Report* * * DATE OF EXAM: Jul 27 2017 4:50PM [id number] [id number] - XR FOOT 3V AP/LAT/OBL RT / PROCEDURE REASON: Epidermal thickening, unspecified * * * * Physician Interpretation * * * * HISTORY: 56-YEAR-OLD MALE WITH Epidermal thickening, unspecified . right foot right pinky toe sore/noticed today/hx of diabetes TECHNIQUE: XR FOOT 3V AP/LAT/OBL RT Laterality: RIGHT Number of different views (projections): 3 COMPARISON: None. RESULT: No acute bony abnormality. No fracture. Bones and joints are intact. No soft tissue swelling IMPRESSION: NO ACUTE BONY ABNORMALITY. Shredding Specialist: PSCB Transcribe Date/Time: Jul 28 2017 10:58A Dictated by : KEEGAN GONZALEZ MD This examination was interpreted and the report reviewed and electronically signed by: KEEGAN GONZALEZ MD on Jul 28 2017 10:59AM EST [id number] Observed: 07/27/2017 Status: COMPLETED Source: [place] 4:43 PM [facility] REPOSITORY HNO ID: [id number] Author: Byron Vasquez (Tech) Service: (none) Author Type: Ic [employer]er [employer] Type: Progress Notes Filed: 07/27/2017 4:50 PM Note Text: Radiology Service Progress Note PATIENT NAME: Dakotah Pratt Jr DATE OF SERVICE: July 27, 2017 TIME: 4:43 PM PATIENT IDENTITY VERIFICATION COMPLETED USING TWO (2) METHODS: Patient confirmed name verbally and Date of . PATIENT GENDER DATA: Male PATIENT RELEVANT IMPLANT DATA REVIEWED: Not Applicable RADIOLOGY DEPARTMENT: General X-ray: Exam(s) Completed: Lower Extremity X-Ray(s): Foot, Right and Wt. Bearing: PERIPHERAL IV DATA: Not applicable SIGNED BY: Byron Hdz July 27, 2017 4:43 PM PROGRESS Observed: 07/27/2017 Status: COMPLETED Source: [place] 3:49 PM [facility] REPOSITORY HNO ID: [id number] Author: Jeanine Samaniego Service: (none) Author Type: Physician Type: Progress Notes Filed: 07/28/2017 5:34 AM Note Text: Subjective: Patient presents to clinic c/o painful toenails. They state that the nails are especially painful with shoe gear and pressure. Patient states that nails 1-5 b/l are painful. Patient admits to being diabetic and states that their blood sugar was 275 mg/dL this AM. No other pedal complaints at this time. Patient states no change in medications or medical history since last visit. Objective: Patient presents to clinic ambulating in diabetic shoes Vasc: DP and PT pulses are nonpalpalb3 bilateral. CFT is greater than 5 seconds bilateral. Skin temperature is warm to cool proximal to distal bilateral. There is moderate edema or varicosities noted. Neuro: Protective sensation is absent to the foot and toes when tested with the 5.07 SWM bilateral. Vibratory sensation is absent at the hallux IPJ bilateral. The hallux is downgoing bilateral. Derm: Nails 1-5 b/l are painful, discolored-yellow, thick, crumbly, dystrophic and with subungal debris. Skin is dry and scaly bilateral. There is evidence of blood dried hypkeratotic lesion, likely that of rubbing in diabetic shoe Ortho: Muscle strength is 5/5 for all pedal groups tested. Ankle joint DF is decreased with the knee extended with no pain or crepitus noted. 1st MPJ ROM is decreased bilateral. Assessment: (I73.9) PAD (peripheral artery disease) ([facility]) (primary encounter diagnosis) (L85.9) Hyperkeratosis (B35.1) Onychomycosis (M79.675) Pain in toe of left foot (E11.42) Diabetic polyneuropathy associated with type 2 diabetes mellitus ([facility]) (M79.674) Pain in toe of right foot Plan: Patient was seen and evaluated. Nails 1-5 bilateral were debrided in length and thickness. Patient appears to have dry eschar/hyperkeratosis of 5th toe right foot that is noninfected. Likely due to rubbing from some form of shoe. Recommend xrays, use of lotion to foot, use of surgical shoe until healed. He does have significant pad. Discussed risk of gangrene. Recommend referral to vascular surgery as this could potentially be source of slow healing if this were to open. If any changes occur immediately, he is to present to ed. Patient was instructed on the continued importance of diabetic foot care along with proper diet and keeping their blood sugar under control to prevent complications. Patient is to RTC in 1 week with me. NATHEN Bowen Observed: 07/27/2017 Status: COMPLETED Source: [place] 2:50 PM [facility] RE[facility] Office Visit (PODIWS) PRATTDAKOTAH BROWNE JR ([id number]) 1960 M Date Time Provider Department 07/27/17 2:50 PM JEANINE SAMANIEGO During your visit today, we recorded the following information about you: Jeanine Samaniego DPM 07/28/2017 5:34 AM Signed Subjective: Patient presents to clinic c/o painful toenails. They state that the nails are especially painful with shoe gear and pressure. Patient states that nails 1-5 b/l are painful. Patient admits to being diabetic and states that their blood sugar was 275 mg/dL this AM. No other pedal complaints at this time. Patient states no change in medications or medical history since last visit. Objective: Patient presents to clinic ambulating in diabetic shoes Vasc: DP and PT pulses are nonpalpalb3 bilateral. CFT is greater than 5 seconds bilateral. Skin temperature is warm to cool proximal to distal bilateral. There is moderate edema or varicosities noted. Neuro: Protective sensation is absent to the foot and toes when tested with the 5.07 SWM bilateral. Vibratory sensation is absent at the hallux IPJ bilateral. The hallux is downgoing bilateral. Derm: Nails 1-5 b/l are painful, discolored-yellow, thick, crumbly, dystrophic and with subungal debris. Skin is dry and scaly bilateral. There is evidence of blood dried hypkeratotic lesion, likely that of rubbing in diabetic shoe Ortho: Muscle strength is 5/5 for all pedal groups tested. Ankle joint DF is decreased with the knee extended with no pain or crepitus noted. 1st MPJ ROM is decreased bilateral. Assessment: (I73.9) PAD (peripheral artery disease) ([facility]) (primary encounter diagnosis) (L85.9) Hyperkeratosis (B35.1) Onychomycosis (M79.675) Pain in toe of left foot (E11.42) Diabetic polyneuropathy associated with type 2 diabetes mellitus (HCC) (M79.674) Pain in toe of right foot Plan: Patient was seen and evaluated. Nails 1-5 bilateral were debrided in length and thickness. Patient appears to have dry eschar/hyperkeratosis of 5th toe right foot that is noninfected. Likely due to rubbing from some form of shoe. Recommend xrays, use of lotion to foot, use of surgical shoe until healed. He does have significant pad. Discussed risk of gangrene. Recommend referral to vascular surgery as this could potentially be source of slow healing if this were to open. If any changes occur immediately, he is to present to ed. Patient was instructed on the continued importance of diabetic foot care along with proper diet and keeping their blood sugar under control to prevent complications. Patient is to RTC in 1 week with me. NATHEN Bowen Ma 07/27/2017 4:04 PM Addendum Keep close eye on 5th toe - if discoloration occurs, present to ED Have XR done today - we will call you with results Vascular consult made with Dr. Del Angel - please schedule Referring Provider: JEANINE SAMANIEGO [[id number]] Allergies As of Date: 07/27/2017 Noted Allergy Reaction PENICILLINS 08/15/2013 16 - Unknown TRAMADOL 03/03/2016 2 - Rash 9 - Itching Date Reviewed: 07/27/2017 Reviewed by: Catie Jett Ma - Fully Assessed Reason for Visit: Diabetic Foot Care [916] Primary Visit Diagnosis:PAD (peripheral artery disease) (HCC) [I73.9] Other Visit Diagnoses:Hyperkeratosis [L85.9] Onychomycosis [B35.1] Pain in toe of left foot [M79.675] Diabetic polyneuropathy associated with type 2 diabetes mellitus (HCC) [E11.42] Pain in toe of right foot [M79.674] Order(s):XR FOOT GENERAL 3V AP/LAT/OBL RT [0837781] Order #: [id number] FUTURE CONSULT TO VASCULAR SURGERY [9042] Order #: [id number]: 1 Prescriptions as of 07/27/2017 Sig: GABAPENTIN 300 MG CAPSULE TAKE 1 CAPSULE THREE TIMES A * ULTICARE PEN NEEDLE 31 GAUGE * USE 1 NEEDLE PER DOSE 5 TIMES* INSULIN GLARGINE (U-300) 300 * INJECT 70 UNITS SUBCUTANEOUSL* MAGNESIUM CITRATE ORAL SOLUTI* Take 148 mL by mouth as direc* BISACODYL 5 MG TABLET,DELAYED* Take 1 tablet by mouth as dir* INSULIN LISPRO (U-100) 100 UN* Inject 12 Units subcutaneousl* BLOOD SUGAR DIAGNOSTIC STRIPS Test blood sugar(s) 3 times d* FUROSEMIDE 80 MG TABLET Take 80 mg by mouth twice corine* SPIRONOLACTONE 25 MG TABLET Take 25 mg by mouth once eder* POTASSIUM CHLORIDE 20 MEQ ORA* Take 20 mEq by mouth twice da* LISINOPRIL 2.5 MG TABLET Take 2.5 mg by mouth once corine* ATORVASTATIN 40 MG TABLET Take 1 tablet by mouth daily * CARVEDILOL 6.25 MG TABLET Take 0.5 tablets by mouth twi* WARFARIN 5 MG TABLET Take 5 mg by mouth daily as d* PEG 3350 240 GRAM-ELECTROLYTE* Take 4000 ml as directed. Fo* ASPIRIN 81 MG TABLET,DELAYED * Take 1 tablet by mouth once d* LANCETS Test blood sugar(s) 2 daily. * COMPOUNDED PRESCRIPTION Support stockings: 20- 30 mmhg* INSULIN SYRINGE-NEEDLE U-100 * Use bid OTC PRODUCT DiabetAid capsaicin 0.025% cr* BLOOD-GLUCOSE METER KIT Pt testing twice daily and pt* CPAP CLOPIDOGREL 75 MG TABLET Take 75 mg by mouth once eder* FAMOTIDINE 40 MG TABLET Take 40 mg by mouth once eder* NITROGLYCERIN 0.4 MG SUBLINGU* Dissolve 0.4 mg under the ton* Problem List As Of Date 07/27/2017 Noted Resolved Diabetes [E11.9] 04/12/2015 Priority: C More... Cardiac defibrillator in place [Z95.810] INVALID FOR* Priority: C More... Hypertension [I10] Priority: C More... Mini stroke [I63.9] Heart attack [I21.9] 04/28/2017 Sleep apnea [G47.30] More... Hyperlipidemia [E78.5] Neuropathy [G62.9] Apical mural thrombus [I51.3] More... Cerebral infarction (HCC) [I63.9] More... PAD (peripheral artery disease) [I73.9] More... 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 Urinary retention [R33.9] INVALID FOR*04/28/2017 Priority: B More... SUMMARY [V999.95] INVALID FOR*10/02/2016 Priority: Very Severe More... Diabetes mellitus with neuropathy (HCC) [E11.40]INVALID FOR*04/12/2015 Type 2 diabetes mellitus with diabetic neuropat*INVALID FOR* Renal insufficiency [N28.9] INVALID FOR* Atrial fibrillation (HCC) [I48.91] INVALID FOR* Other instructions from your clinician: Keep close eye on 5th toe - if discoloration occurs, present to ED Have XR done today - we will call you with results Vascular consult made with Dr. Del Angel - please schedule Encounter Status:Closed by JEANINE SAMANIEGO DPM on 07/28/17 ALLERGIES ALLERGIES DATE TYPE / CODE NAME / CODE REACTION SEVERITY SOURCE 09/06/2017 Drug Penicillins/[id number] Nausea Unknown [place] Allergy/416 0476(RXNORM) [facility] [id number]([facility] ED CT) Repository 09/06/2017 Drug tramadol/[id number] Hives Unknown [place] Allergy/416 0(RXNORM) [facility] [id number]([facility] ED CT) Repository 03/03/2016 DRUG TRAMADOL RASH [facility] INGREDI/[address] [place] 205496(SNOM Repository ED CT) 08/15/2013 Drug PENICILLINS UNKNOWN [facility] Class/14467 [address] [place] 1003(SNOMED Repository CT) ENCOUNTERS ENCOUNTERS ADMIT/DISCHARGE ACCOUNT ADMITTING ENCOUNTER LOCATION SOURCE NUMBER CLASS 06/11/2018 [id number] [facility] ing:LAB Repository 06/07/2018 [id number] Ambulatory BMSBuilding:B [place] Repository 06/04/2018/06/04/19 [id number] Ambulatory [address] Repository 06/03/2018 [id number] [facility] ing:LAB.FUTUR Repository E 06/02/2018/06/02/19 [id number] Ambulatory [address] Repository 06/02/2018/06/03/19 [id number] Ambulatory [address] Repository 05/17/2018/05/19/20 [id number] Mildred Terry Inpatient [place] Shanika 18 [facility] ing:PCURoom: Repository [id number]: 1 05/17/2018 [id number] Mildred Terry Ambulatory BMSBuilding:[place] MS.[facility] Repository 05/17/2018 [id number] Mildred Terry Ambulatory BMSBuilding:B [place] MS.[facility] Repository 05/17/2018 [id number] Mildred Terry Ambulatory BMSBuilding:[place] [facility] Repository 05/12/2018/05/12/20 [id number] Emergency [address] ing:ED Repository 05/12/2018/05/12/20 [id number] Ambulatory [address] Repository 05/12/2018/05/13/20 [id number] Ambulatory [address] Repository 05/04/2018/05/04/20 [id number] Ambulatory BMSBuilding:B Shanika 18 [facility] Repository 04/05/2018/04/12/20 [id number] Ambulatory [address] Repository 04/05/2018/04/05/20 [id number] Ambulatory [address] Repository 04/05/2018/04/05/20 [id number] Ambulatory [address] Repository 03/15/2018/03/15/20 [id number] Ambulatory [address] Repository 02/09/2018/02/11/20 [id number] Ambulatory [address] Repository 02/04/2018/05/05/20 [id number] Ambulatory [address] Repository 02/04/2018/02/05/20 [id number] Ambulatory [address] Repository 02/04/2018/02/05/20 [id number] Ambulatory BMSBuilding:B [place] 18 [facility] Repository 02/04/2018/02/05/20 [id number] Ambulatory BMSBuilding:B [place] 18 [facility] Repository 01/02/2018 [id number] Ambulatory [facility] ing:LAB Repository 12/10/2017/12/11/19 [id number] Ambulatory [place] [address] [facility] [address] [facility] ing:LAB Repository 11/04/2017/11/06/19 [id number] Ambulatory [address] [place] Repository 09/28/2017/10/23/19 [id number] Ambulatory [address] [place] Repository 09/28/2017/09/29/19 [id number] Ambulatory [address] [place] Repository 09/28/2017/09/29/19 [id number] Ambulatory [address] [place] Repository 09/28/2017/09/29/19 [id number] Ambulatory [address] [place] Repository 09/16/2017 [id number] Ambulatory [facility] [address] [place] Repository 09/16/2017/09/18/19 [id number] Ambulatory [address] [place] Repository 09/15/2017/09/16/19 [id number] Ambulatory BMSBuilding:B [place] 18 [facility] Repository 09/07/2017/09/08/19 [id number] Emergency Shanika [address]ika[address] [facility] ing:ED Repository 09/07/2017/09/08/19 [id number] Ambulatory [address] [place] Repository 09/06/2017/09/07/19 [id number] Emergency Shanika [address]ika[address] [facility] ing:ED Repository 09/03/2017 [id number] Ambulatory [facility] [place] Repository 09/03/2017/09/05/19 [id number] Ambulatory [address] [place] Repository 09/03/2017/09/04/19 [id number] Ambulatory Shan[place] Shanika [facility] ing:LAB Repository 08/06/2017/08/08/19 [id number] Ambulatory [address] [place] Repository 08/03/2017/08/19/19 [id number] Ambulatory [address] [place] Repository 07/27/2017/07/31/19 [id number] Ambulatory [address] [place] Repository 07/27/2017/08/04/19 [id number] Ambulatory [address] [place] Repository PAYERS PAYERS ENCOUNTER GUARANTOR PAYER SUBSCRIBER SOURCE 06/11/2018 DAKOTAH Voss [id number] Insurance[facility] Community [address] *[place] [address] [place] Number: Repository [id number]: 330 [id number] [phone] (HP) Date:6077-29-49XB [address] [address]OB: 06/11/2018 Secondary NOT GIVENUNK [place] Insurance:SELF PAY [facility] Number: Effective Repository Date:2018-06-11 06/07/2018 DAKOTAH R Primary DAKOTAH Duran [place] [id number] Insurance:[facility]: Community [address] *[place] [address] [place] Number: Repository [address]Vpm: 330 [id number] [phone] (HP) Date:5725-43-76BX [address] [address]VS: 06/07/2018 Secondary NOT GIVENUNK [place] Insurance:SELF PAY [facility] Hospital Number: Effective Repository Date:2018-06-07 06/03/2018 DAKOTAH R Primary DAKOTAH Duran [place] [id number] Insurance:[facility]: Community [address] *IN [address] Number: Repository [id number]: 330 [id number] [phone] () Date:3468-18-80IV [address] [address]KK: 06/03/2018 Secondary NOT GIVENUNK [place] Insurance:SELF PAY [facility] Number: Effective Repository Date:2018-06-03 05/17/2018 DAKOTAH R Primary DAKOTAH Duran [place] [id number] Insurance:[facility]: Community [address] *[place] [address] [place] Number: Repository [address]Bfj: 330 [id number] [phone] (HP) Date:9658-96-96AM [address] [address]CU: 05/17/2018 Secondary NOT GIVENUNK [place] Insurance:SELF PAY [facility] Number: Effective Repository Date:2018-05-16 05/17/2018 DAKOTAH R Primary DAKOTAH Druan [place] [id number] Insurance:[facility]: Community [address] *IN [facility] [id number] Number: Repository [address]Clt: 330 [id number] [phone] () Date:3284-62-34RO [address] [address]XH: 05/17/2018 Secondary NOT GIVENUNK [place] Insurance:SELF PAY [facility] [place] Number: Effective Repository Date:2018-05-17 05/17/2018 DAKOTAH R Primary DAKOTAH Duran [place] [id number] Insurance:[facility]: Community [address] *IN [facility] [id number] Number: Repository [address]Ykj: 330 [id number] [phone] () Date:2078-46-14GH [address] [address]OW: 05/17/2018 Secondary NOT GIVENUNK [place] Insurance:SELF PAY [facility] Number: Effective Repository Date:2018-05-17 05/17/2018 DAKOTAH R Primary DAKOTAH Duran [place] [id number] Insurance:[facility]: Community [address] *IN [facility] [id number] Number: Repository [id number]: 330 [id number] [phone] () Date:6377-90-70ER [address] [address]CM: 05/17/2018 Secondary NOT GIVENUNK [place] Insurance:SELF PAY [facility] Number: Effective Repository Date:2018-05-17 05/12/2018 DAKOTAH R Primary DAKOTAH R [place] [id number] Insurance:[facility]: Community [address] *IN [address] [place] Number: Repository [address]Zao: 330 [id number] [phone] (HP) Date:1099-34-79CT [address] [address]NJ: 05/12/2018 Secondary NOT GIVENUNK [place] Insurance:SELF PAY [facility] Number: Effective Repository Date:2018-05-12 05/04/2018 DAKOTAH R Primary DAKOTAH R [place] [id number] Insurance:[facility]: Community [address] *[place] [address] [place] Number: Repository [address]Mnm: 330 [id number] [phone] (HP) Date:5031-97-17AC [address] [address]GG: 05/04/2018 Secondary NOT GIVENUNK [place] Insurance:SELF PAY [facility] Hospital Number: Effective Repository Date:2018-05-04 02/04/2018 DAKOTAH R Primary DAKOTAH R [place] [id number] Insurance:[facility]: Community [address] *IN [address], [place] Number: Repository [address]Anx: 330 [id number] [phone] (HP) Date:1126-79-83YJ[address] [address]SK: 02/04/2018 Secondary NOT GIVENUNK [place] Insurance:SELF PAY [facility] [place] Number: Effective Repository Date:2017-09-15 02/04/2018 DAKOTAH R Primary DAKOTAH R [place] [id number] Insurance:[facility]: Community [address] *[place] [address] [place] Number: Repository [address]Hoa: 330 [id number] [phone] (HP) Date:3279-51-19CH [address] [address]BV: 02/04/2018 Secondary NOT GIVENUNK [place] Insurance:SELF PAY [facility] [place] Number: Effective Repository Date:2017-09-04 01/02/2018 DAKOTAH R Primary DAKOTAH Duran [place] [id number] Insurance:[facility]: Community [address] *IN [address] Number: Repository [id number]: 330 [id number] [phone] () Date:1052-20-17UG [address] [address]FX: 01/02/2018 Secondary NOT GIVENUNK [place] Insurance:SELF PAY [facility] [place] Number: Effective Repository Date:2017-12-24 12/10/2017 DAKOTAH R Primary DAKOTAH R [place] [id number] Insurance:[facility]: Community [address] *IN [address] Number: Repository [address]Eev: 330 [id number] [phone] () Date:3059-14-21VL[address] [address]KV: 12/10/2017 Secondary NOT GIVENUNK [place] Insurance:SELF PAY [facility] [place] Number: Effective Repository Date:2017-09-22 09/15/2017 DAKOTAH R Primary DAKOTAH Duran [place] [id number] Insurance:[facility]: Community [address] *IN [facility] [id number] Number: Repository [address]Kgx: 330 [id number] [phone] () Date:5910-07-72UV [address] [address]ZS: 09/15/2017 Secondary NOT GIVENUNK [place] Insurance:SELF PAY [facility] [place] Number: Effective Repository Date:2017-09-15 09/07/2017 DAKOTAH R Primary DAKOTAH Duran [place] [id number] Insurance:[facility]: Community [address] *IN [address] Number: Repository [address]Hto: 330 [id number] [phone] () Date:8838-39-14GT [address] [address]HX: 09/07/2017 Secondary NOT GIVENUNK [place] Insurance:SELF PAY [facility] [place] Number: Effective Repository Date:2017-09-07 09/06/2017 DAKOTAH R Primary DAKOTAH Voss [id number] Insurance:[facility]: Community [address] *IN [facility] [id number] Number: Repository [id number]: 330 [id number] [phone] () Date:2419-51-55XE [address] [address]EM: 09/06/2017 Secondary NOT GIVENUNK [place] Insurance:SELF PAY [facility] [place] Number: Effective Repository Date:2017-09-06 09/03/2017 DAKOTAH R Primary DAKOTAH Duran [place] [id number] Insurance:[facility]: Community [address] *IN [address] Number: Repository [address]Hxw: 330 [id number] [phone] () Date:3110-08-25FA [address] [address]OV: 09/03/2017 Secondary NOT GIVENUNK [place] Insurance:SELF PAY [facility] Number: Effective Repository Date:2017-06-26
== END ==
PROVIDERS: Family Provider Family Medicine; PCP Family Medicine; Visit Provider Internal Medicine Cardiovascular Disease
DX: I48.91 Unspecified atrial fibrillation (principal); I51.3 Intracardiac thrombosis, not elsewhere classified; I25.5 Ischemic cardiomyopathy; Z79.01 Long term (current) use of anticoagulants
CPT/HCPCS: 36415; 85610

== ENCOUNTER → 2018-06-25 08:26 | Outpatient (CLI) | payer MEDICARE, SELFPAY ==
[2018-05-17 01:32] VITALS: BMI 34.3
[2018-06-25 10:32] LABS: Prothrombin Time (Protime)PT. 48.2 SECONDS (11.7-14.9)
[2018-06-25 10:35] LABS: International Normalized Ratio 5.2
== END ==
PROVIDERS: Family Provider Family Medicine; PCP Family Medicine; Visit Provider Internal Medicine Cardiovascular Disease
DX: I51.3 Intracardiac thrombosis, not elsewhere classified (principal); Z79.01 Long term (current) use of anticoagulants; I48.91 Unspecified atrial fibrillation; I25.5 Ischemic cardiomyopathy
CPT/HCPCS: 36415; 85610

== ENCOUNTER → 2018-06-28 08:26 | Outpatient (CLI) | payer MEDICARE, SELFPAY ==
[2018-05-17 01:32] VITALS: BMI 34.3
[2018-06-28 11:19] LABS: International Normalized Ratio 2.2; Prothrombin Time (Protime)PT. 24.6 SECONDS (11.7-14.9)
== END ==
PROVIDERS: Family Provider Family Medicine; PCP Family Medicine; Visit Provider Internal Medicine Cardiovascular Disease
DX: I51.3 Intracardiac thrombosis, not elsewhere classified (principal); Z79.01 Long term (current) use of anticoagulants; I48.91 Unspecified atrial fibrillation; I25.5 Ischemic cardiomyopathy
CPT/HCPCS: 36415; 85610

== ENCOUNTER → 2018-07-12 10:01 | Outpatient (CLI) | payer MEDICARE, SELFPAY ==
[2018-05-17 01:32] VITALS: BMI 34.3
[2018-07-12 11:50] LABS: International Normalized Ratio 2.6; Prothrombin Time (Protime)PT. 27.9 SECONDS (11.7-14.9)
== END ==
PROVIDERS: Family Provider Family Medicine; PCP Family Medicine; Visit Provider Internal Medicine Cardiovascular Disease
DX: I51.3 Intracardiac thrombosis, not elsewhere classified (principal); Z79.01 Long term (current) use of anticoagulants; I48.91 Unspecified atrial fibrillation; I25.5 Ischemic cardiomyopathy
CPT/HCPCS: 36415; 85610

== ENCOUNTER 2018-07-15 11:14 | Inpatient (IN) | payer MEDICARE, SELFPAY ==
[2018-05-17 01:32] VITALS: BMI 34.3
[2018-07-15] VITALS (7 sets, daily range): BP systolic 71–106; BP diastolic 49–77; PULSE 73–83; RESP 16–18; TEMP 36.6–37.8; O2SAT 97–98; BMI 35.5; BMI 35.6; BMI 34.8
--- NOTE | 2018-07-15 11:33 | RAD_ITS ---
STUDY: X-RAY CHEST REASON FOR EXAM: Male, 57 years old. Fever, Trauma. TECHNIQUE: Single AP portable view of the chest. COMPARISON: 05/16/2018. FINDINGS: The lungs are clear and expanded. There is no demonstrated pleural abnormality. Normal size heart. Pacemaker leads are seen in the right atrium, coronary sinus, and right ventricle. Normal mediastinum and katrina. Normal visualized pulmonary arteries. Normal visualized aortic arch and descending thoracic aorta. Normal visualized thoracic spine. Normal visualized ribs, clavicles, and shoulders. There is no demonstrated abnormality of the visualized soft tissue structures of the upper abdomen. RAD/Chest 1 View (Portable) IMPRESSION: No acute chest disease. Electronically Signed: Raphael Chu MD at 12:26 EST , Service support ,
--- NOTE | 2018-07-15 11:34 | EKG12_ITS ---
Test Reason : CP Blood Pressure : / mmHG Vent. Rate : 080 BPM Atrial Rate : 312 BPM P-R Int : 000 ms QRS Dur : 160 ms QT Int : 438 ms P-R-T Axes : 000 247 078 degrees QTc Int : 505 ms Wide QRS rhythm Right bundle branch block Abnormal ECG Confirmed by STAS SMITH, BETITO ([id number]), science editor CINDY HADDAD ([id number] on 07/19/2018 4:53:02 PM Referred By: TRACE Confirmed By:BETITO MCCLELLAND MD
--- NOTE | 2018-07-15 11:35 | RAD_ITS ---
STUDY: X-RAY - LEFT FOOT CLINICAL: Diabetic foot ulcer with swelling. TECHNIQUE: 3 view(s) of the foot. COMPARISON: None. FINDINGS: Normal talus, calcaneus, and tarsal bones. Normal visualized subtalar, talonavicular, calcaneocuboid, tarsal and tarsometatarsal articulations. Normal metatarsi. Normal metatarsophalangeal joint of the great toe. Normal tibial and fibular sesamoid bones. Normal interphalangeal joint of the great toe. Normal phalanges of the great toe. Normal second through fifth metatarsophalangeal joints. Normal interphalangeal joints and phalanges of the lesser toes. There is soft tissue swelling. There is vascular calcification. RAD/Foot min 3 Views IMPRESSION: Soft tissue swelling. No demonstrated active bone destruction. Electronically Signed: Lex Sanchez MD at 12:43 EST Tel , Service support ,
--- NOTE | 2018-07-15 11:37 | ED.VISSUMM ---
- ER Visit Summary Date of Service: 07/15/18 Chief Complaint: [] Diabetes, left foot infection, drainage history of A. fib aorta and bypass cardiac defibrillator History of Present Illness: The patient is a 57 M [] with that history and more, he indicates he had a chronic area that he describes a whole plantar surface of the left foot he has had chronic poor blood supply to his legs for years he had an aortobifem bypass in 1999 the clotted shortly after he has had procedures to open the clotted grafts that then suddenly closed back, so he is on Coumadin for the above in addition to A. fib, he indicates he has long history of some type of a hole or skin defect ulcer to the plantar surface of left foot over the last few days he has noticed the fourth toe is more red and draining and he has more pain and he presents for evaluation, he has seen podiatry in the past but not recently he lives at home alone called paramedics and was brought in, his diabetes and other health conditions he reports are generally well controlled his cardiovascular status has been fine, his defibrillator has never fired he has had no fever cough or chest pain but is noticed to have a temperature of 100 Physical Examination: [] Temperatures 100 blood pressure is 110/60 General, no distress resting comfortably HEENT is generally unremarkable The neck is supple no adenopathy Cardiovascular, regular rate and rhythm Lungs, clear bilateral Abdomen, soft nontender Extremities, left foot shows a diabetic ulcer involving the fourth toe there is drainage from that toe there is also an ulcer to the plantar surface that toe level, there is redness streaking up the anterior kim there are no palpable pulses in either foot, both feet are red and warm, he has the aortobifem scars in his left and right inguinal regions and there are no palpable pulses here either, he indicates this is normal for him not to have pulses that are palpable, he also believes in the past he may have had DVTs Neurologic, awake alert answering questions appropriately moving all 4 extremities Test Results: [] Emergency Department Course and Treatment: [] Given all of the above he clearly has a diabetic foot infection as a fever, he has chronic peripheral vascular disease and by his history poor to no flow to the lower extremities, he is on anticoagulant for his A. fib peripheral vascular disease and reported prior history for DVT his vital signs are stable there is no signs of sepsis at this time crepitance of screening labs are obtained cultures antibiotics and we will discussed with the inpatient service Treatment Plan: [] Screening labs show white count of 12 x-rays are generally unremarkable and all the above have asked the hospital see him further management admission for diabetic foot infection possible gangrene peripheral vascular disease Disposition: [] Admit stable Impression: [] diabetic foot infection, peripheral vascular disease, A. fib CAD pacemaker multiple medical problems noncompliance This note was generated with [employer] dictation software. It may contain incorrect words, spelling, and punctuation that were not noted in review of the chart prior to signing ED Disposition - Plan for ED Patient: Referrals: Allen Motta MD [Primary Care Provider] -
[2018-07-15 11:45] LABS: Bedside Glucose 87 mg/dL (70-110)
[2018-07-15 11:54] LABS: Absolute Lymphocyte Count 0.51 X10^3/ul (0.83-4.51); Absolute Neutrophil Count 10.3 X10^3/uL (2.0-7.7); Basophil# 0.01 X10^3/uL; Basophil% 0.1 % (0-1); Eosinophil# 0.01 X10^3/uL; Eosinophils% 0.1 % (0-5); Hematocrit 40.2 % (40-54); Hemoglobin 13.2 g/dl (13.0-16.5); Lymphocyte # 0.51 X10^3/ul (4.0); Lymphocyte % 4.3 % (19-41); Mean Corp Hgb Conc 32.8 g/gl (32-36); Mean Corpuscular Hgb 28.5 pg (27.0-32.0); Mean Corpuscular Volume 86.8 fL (80-94); Mean Platelet Vol. 10.6 fl (6.2-12.0); Monocyte# 1.17 X10^3/uL; Monocyte% 9.8 % (0-10); Neutrophil # 10.25 X10^3/uL (2.7-7.7); Neutrophil % 85.4 % (47-70); Platelet Count 184 K/mm3 (150-450); RBC Distribution Width CV 14.9 % (11.6-14.6); RBC Distribution Width SD 46.3 fl (35.1-43.9); Red Blood Count 4.63 M/mm3 (4.6-6.2)
[2018-07-15 11:56] LABS: Differential Indicated SCAN CRITERIA MET; POSITIVE COUNT NO; POSITIVE DIFFERENTIAL YES; POSITIVE MORPHOLOGY NO; Prothrombin Time (Protime)PT. 22.8 SECONDS (11.7-14.9)
[2018-07-15] MEDS: Morphine 4 MG/ML Syringe IV (11:56)
[2018-07-15] MEDS: Ondansetron 4 MG/2 ML Vial IV (11:56)
[2018-07-15] MEDS: Acetaminophen 500 MG Tablet 1000 MG PO (11:57)
[2018-07-15] MEDS: Ceftriaxone 1 GM/50 ML BAG IV (12:03)
[2018-07-15 12:08] LABS: Anion Gap 12 (5-15); BUN 27 mg/dL (7-18); BUN/Creat Ratio 17.4 RATIO (10-20); Calcium,Total 8.6 mg/dL (8.5-10.1); Chloride 98 mmol/L (98-107); Creatinine, Serum 1.55 mg/dL (0.70-1.30); EST Glomerular Filtration Rate 50 mL/min (>60); Est Glom Filt Rate - Afr Amer 60 mL/min (>60); Estimated Creatinine Clearance 45.09 ml/min; Glucose 100 mg/dL (74-106); Potassium 3.9 mmol/L (3.5-5.1); Sodium Level 134 mmol/L (136-145)
[2018-07-15 12:20] LABS: BNP,B-Type NATRIURETIC PEPTIDE 341.5 pg/mL (0-100)
--- NOTE | 2018-07-15 14:47 | NURSING ---
DR WOODWARD FOR ER
--- NOTE | 2018-07-15 14:59 | NURSING ---
MED SURG DIABETIC FOOT INFECTION, MULTIPLE MEDICAL PROBLEMS, NONCOMPLIANCE OBS TRACE
--- NOTE | 2018-07-15 15:50 | ART_ITS ---
Reason For Study: PVD with ulcers Procedure A bilateral lower extremity continuous wave Doppler with analog waveform analysis and ankle brachial indexes. Left Segmental Pressures Left posterior tibial artery = NCmmHg. Left dorsalis pedis artery = NCmmHg. Left digit = 29 mmHg. The left calf waveforms are monophasic. The left posterior tibial artery waveforms are monophasic. Right Segmental Pressures Right brachial= 107mmHg. Right posterior tibial artery = NCmmHg. Right dorsalis pedis artery = NCmmHg. Right digit = 54 mmHg. The right dorsalis pedis waveforms are biphasic. The right posterior tibial artery waveforms are biphasic. Indices The right ankle brachial index by the dorsalis pedis is NC. The right ankle brachial index by the posterior tibial artery is NC. The right digital-brachial index is .50. The left ankle brachial index by the dorsalis pedis is NC. The left ankle brachial index by the posterior tibial artery is NC. The left digital-brachial index is .27. Interpretation Summary Unable to calculate bilateral PT/DP ankle brachial indices secondary to elevated systolic pressures consistent with medial calcification of vessel [place]. Right digital index 0.5 and Biphasic DP/PT waveformes consistent with moderately severe occlusive disease. Left digital index 0.2 and monophasic DP/PT waveforms consistent with severe disease. Ordering Physician: Herminio Whitaker Referring Physician: Allen Motta Performed By: Michelle Pak RVT
--- NOTE | 2018-07-15 16:25 | PCM.HP.STD ---
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 (4) ICD (implantable cardioverter-defibrillator), biventricular, in situ Status: Chronic (5) Atherosclerosis of [place] coronary artery of [place] heart without angina pectoris Status: Chronic Comment: PCI to LAD & diagonal in 2009; (6) Diabetes mellitus Status: Chronic (7) Obesity Status: Chronic (8) Hypertension Status: Chronic (9) Benign prostatic hypertrophy Status: Chronic (10) COPD (chronic obstructive pulmonary disease) Status: Chronic (11) GERD (gastroesophageal reflux disease) Status: Chronic (12) [place] (obstructive sleep apnea) Status: Chronic (13) AICD (automatic cardioverter/defibrillator) present Status: Chronic Comment: 12/2009 implant; (14) PAD (peripheral artery disease) Status: Chronic (15) HLD (hyperlipidemia) Status: Chronic (16) Ischemic cardiomyopathy Status: Chronic (17) Hypotension Status: Acute (18) Systolic CHF, chronic Status: Chronic (19) Atrial fibrillation Status: Chronic Comment: AV Node RFA 07/11/2015 History of Present Illness Date of Admission: 07/15/18 Chief Complaint: left 4th toe wound The patient is a 57 year old M with pmhx of CAD, prior stents, chronic systolic CHF with ischemic CM, atrial fibrillation, pacemaker in place, type 2 diabetes, history of mural thrombus, ICD in place, hypertension, BPH, COPD, GERD, obstructive sleep apnea, peripheral artery disease with prior bilateral arterial bypass surgery, hyperlipidemia, who presents to the ER with nonhealing wound on the left 4th toe. He states this was sustained one week prior when he stepped on either gravel or rock salt. He states he has severe neuropathy and has no feeling in his feet or toes. He says the wound did not improve at all and has opened up more, prompting him to come to the ER. He has also had severe chills the past two days. He also has a left heel wound. He was not treated as an outpatient for this. He was last in the hospital in April with pna. He follows podiatry - Dr. Samaniego as an outpatient. He has seen vascular surgery - Dr. Lino [facility] for prior BL arterial bypass. He denies hx of cellulitis or MRSA. His traffic workforce representative is Dr. Willingham. [] Past Medical History Past Medical History (Chronic Problems): Chronic Problems (Last Reviewed 02/04/18 @ 16:06 by Keven Willingham MD) CAD (coronary artery disease) (Chronic) Mural thrombus of cardiac apex (Chronic) technician terminal and repeater 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 (Chronic) ICD (implantable cardioverter-defibrillator), biventricular, in situ (Chronic) Atherosclerosis of [place] coronary artery of [place] heart without angina pectoris (Chronic) PCI to LAD & diagonal in 2009; Diabetes mellitus (Chronic) Obesity (Chronic) Hypertension (Chronic) Benign prostatic hypertrophy (Chronic) COPD (chronic obstructive pulmonary disease) (Chronic) GERD (gastroesophageal reflux disease) (Chronic) [place] (obstructive sleep apnea) (Chronic) AICD (automatic cardioverter/defibrillator) present (Chronic) 12/2009 implant; PAD (peripheral artery disease) (Chronic) Pleural effusion, left (Chronic) S/P PTCA (percutaneous transluminal coronary angioplasty) (Chronic) HLD (hyperlipidemia) (Chronic) Ischemic cardiomyopathy (Chronic) Systolic CHF, chronic (Chronic) Atrial fibrillation (Chronic) AV Node RFA 07/11/2015 H/O atrioventricular chris ablation (Chronic ~07/11/15) Medical History: Medical History (Last Reviewed 02/04/18 @ 16:06 by Keven Willingham MD) Mural thrombus of cardiac apex (Chronic) I51.3 technician terminal and repeater 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 (Chronic) Z79.01 ICD (implantable cardioverter-defibrillator), biventricular, in situ (Chronic) Z95.810 Atherosclerosis of [place] coronary artery of [place] heart without angina pectoris (Chronic) I25.10 PCI to LAD & diagonal in 2009; Diabetes mellitus (Chronic) E11.9 Obesity (Chronic) E66.9 Hypertension (Chronic) I10 Benign prostatic hypertrophy (Chronic) N40.0 COPD (chronic obstructive pulmonary disease) (Chronic) J44.9 GERD (gastroesophageal reflux disease) (Chronic) K21.9 [place] (obstructive sleep apnea) (Chronic) G47.33 PAD (peripheral artery disease) (Chronic) I73.9 Pleural effusion, left (Chronic) J90 HLD (hyperlipidemia) (Chronic) E78.5 Ischemic cardiomyopathy (Chronic) I25.5 Hypokalemia (Acute) E87.6 Hypotension (Acute) I95.9 Acute on chronic renal failure (Acute) N17.9, N18.9 Near syncope (Acute) Systolic CHF, chronic (Chronic) I50.22 Atrial fibrillation (Chronic) I48.91 AV Node RFA 07/11/2015 Light headedness (Acute) R42 Chest pain (Acute) R07.9 Atherosclerosis of [place] coronary artery of [place] heart without angina pectoris I25.10 03/25/2007 EVAN to prox LAD and PTCA to Diag 1; 07/19/2008 PTCA/EVAN to ostium of LAD; 07/31/2008 PTCA to ostial LAD and Diagonal 1; 05/2009 PTCA/EVAN to mid LAD and Diagonal 1 LV apical aneurysm with thrombus History of cardiac pacemaker Onset Date: ~07/11/15 Z95.0 Allergies tramadol Allergy (Verified 07/15/18 11:31) Hives Penicillins Adverse Reaction (Verified 07/15/18 11:31) Nausea Home Medications: Ambulatory Orders Medication Instructions Recorded Insulin Glargine,Hum.rec.anlog 70 unit SQ QHS 08/16/16 [Nilsa Dang] gabapentin 300 mg capsule 300 mg PO BID cap 06/05/17 insulin aspart U- 100 100 unit/mL 16 unit SC TIDCM ml 06/08/17 subcutaneous pen potassium chloride ER 20 mEq 20 meq PO DAILY #30 tab 09/02/17 tablet,extended release(part/cryst) Atorvastatin Calcium [Lipitor] 40 mg PO QHS 09/07/17 Aspirin [Aspirin EC] 81 mg PO DAILY 05/12/18 Lisinopril [Zestril] 2.5 mg PO DAILY 05/12/18 Spironolactone 25 mg PO DAILY 05/12/18 clopidogrel 75 mg tablet 75 mg PO DAILY #30 tab 05/13/18 famotidine 40 mg tablet 40 mg PO DAILY #30 tab 05/13/18 Albuterol IH (ProAir) [Proair Hfa] 1 - 2 puff INHALATION Q4H PRN PRN 05/19/18 #1 inhaler carvedilol 3.125 mg tablet 3.125 mg PO BID #60 tab 06/09/18 warfarin 5 mg tablet 2.5 mg PO DAILY #0 tab 06/28/18 furosemide 80 mg tablet 80 mg PO BID #60 tab 07/07/18 Surgical History: Surgical History (Last Reviewed 02/04/18 @ 16:06 by Keven Willingham MD) AICD (automatic cardioverter/defibrillator) present (Chronic) Z95.810 12/2009 implant; S/P PTCA (percutaneous transluminal coronary angioplasty) (Chronic) Z98.61 H/O atrioventricular chris ablation (Chronic) Onset Date: ~07/11/15 Z98.890 History of cholecystectomy Z98.890, Z90.49 S/P aorto-bifemoral bypass surgery Onset Date: ~2003 Z95.828 [facility] Surgical History: angioplasty, cholecystectomy, pacemaker implantation, - Psychiatric History: No pertinent psych hx Smoking Status: Former smoker Tobacco Use: Cigarettes, Chew Alcohol: None Drugs: None - *Family History Paternal Family History: Family History (Last Reviewed 02/04/18 @ 16:06 by Keven Willingham MD) Father Hypertension CAD (coronary artery disease) Sister Cancer History Items: Heart Disease - CAD; at approximately 45 years of age Maternal Family History: Family History (Last Reviewed 02/04/18 @ 16:06 by Keven Willingham MD) Father Hypertension CAD (coronary artery disease) Sister Cancer History Items: Cancer - lung cancer Review of Systems Constitutional: Reports: Chills. Denies: Fever, Weight Change HEENT: Denies: Head Aches, Sinus Congestion, Sinus Drainage Cardiovascular: Denies: Chest Pain, Palpitations Respiratory: Denies: Cough, Shortness of breath at rest, Sputum production Gastrointestinal: Denies: Abdominal Pain, Nausea, Vomiting Genitourinary: Denies: Dysuria Musculoskeletal: Denies: Joint Pain, Joint Tenderness Skin: Denies: Rash, Wounds Neurological: Denies: Numbness, Tingling, Focal weakness Psychiatric: Denies: Anxiety, Depression, Homicidal Ideations, Suicidal Ideations Hematologic/ Lymphatic: Denies: Easy Bruising, Easy Bleeding VTE Information - Inpt Only VTE Present on Admission: No VTE Mechan Device Prophylaxis: None VTE Pharm Prophylaxis ordered?: Yes Patient Problems: Active and Suspected Problems (Last Reviewed 02/04/18 @ 16:06 by Keven Willingham MD) Wound cellulitis (Acute) - Physical Exam General: Alert, Oriented x3, Cooperative HEENT: Atraumatic, PERRLA, EOMI, Normocephalic Neck: Supple, No JVD, Negative Carotid Bruits Lungs: Clear to auscultation, Normal air movement Cardiovascular: Regular rate, No murmurs Abdomen: Bowel Sounds Present, Soft, Non Tender Extremities: No edema, Capillary Refill Less than 3 Seconds Skin: No rashes, No breakdown, - - open wound left 4th digit, some erythema, cool to the touch, distal pulses not palpable. Chronic venous changes present BL LE. Left heal wound. Malodorous wounds. Musculoskeletal: No Tenderness to Palpation of Joints or Extremities Neurological: Cranial nerves II-XII grossly intact Psych/Mental Status: Normal Affect, Appropriate, Alert and oriented to time, place, person, mood and affect Vital Signs Temp Pulse Resp BP Pulse Ox 97.9 F 73 16 71/49 L 97 07/15/18 16:05 07/15/18 16:05 07/15/18 16:05 07/15/18 16:22 07/15/18 16:05 Oxygen Delivery Method Room Air Weight: 203 lb Body Mass Index (BMI) 34.8 Finger Stick Blood Glucose 87 Laboratory Tests Past 24 Hrs 07/15/18 07/15/18 07/15/18 11:25 11:25 11:25 WBC 12.0 H RBC 4.63 Hgb 13.2 Hct 40.2 MCV 86.8 MCH 28.5 MCHC 32.8 RDW 14.9 H RDW Differential 46.3 H Plt Count 184 MPV 10.6 Immature Gran % (Auto) 0.300 Neut % (Auto) 85.4 H Lymph % (Auto) 4.3 L [place] % (Auto) 9.8 Eos % (Auto) 0.1 Baso % (Auto) 0.1 Absolute Neuts (auto) 10.3 H Absolute Lymphs (auto) 0.51 L Total Counted Not Reportable PT 22.8 H INR 2.0 Sodium 134 L Potassium 3.9 Chloride 98 Carbon Dioxide 24.0 Anion Gap 12 BUN 27 H Creatinine 1.55 H Estim Creat Clear Calc 45.09 Est GFR (MDRD) Af Amer 60 Est GFR (MDRD) Non-Af 50 L BUN/Creatinine Ratio 17.4 Glucose 100 Calcium 8.6 Troponin I < 0.015 B-Natriuretic Peptide 07/15/18 11:25 WBC RBC Hgb Hct MCV MCH MCHC RDW RDW Differential Plt Count MPV Immature Gran % (Auto) Neut % (Auto) Lymph % (Auto) [place] % (Auto) Eos % (Auto) Baso % (Auto) Absolute Neuts (auto) Absolute Lymphs (auto) Total Counted PT INR Sodium Potassium Chloride Carbon Dioxide Anion Gap BUN Creatinine Estim Creat Clear Calc Est GFR (MDRD) Af Amer Est GFR (MDRD) Non-Af BUN/Creatinine Ratio Glucose Calcium Troponin I B-Natriuretic Peptide 341.5 H POC Glucose 07/15/18 11:41 POC Glucose 87 Assessment/Plan All Active Problems (Last Reviewed 02/04/18 @ 16:06 by Keven Willingham MD) Wound cellulitis (Acute) Hypokalemia (Acute) Hypotension (Acute) Acute on chronic renal failure (Acute) Near syncope (Acute) Light headedness (Acute) Chest pain (Acute) Pneumonia (Resolved) 1. Nonhealing diabetic foot wound - received vanc and zosyn in ER. Ancef started. Temp 100, mild leukocytosis. Very poor circulation - prior BL bypass for PAD. Consult to Dr. Samaniego. Xray without signs of osteo. Former smoker. No prior wound cx in computer. C/s to wound care. MRSA/MSSA screen sent. Wound cx sent. Blood cx taken in ER. 2. Hx CAD - prior CABG, pt of Dr. Willingham, also with hx of systolic CHF, ischemic CM, Afib. Consider cardiology c/s if surgery required. Trop neg. BNP elevated but no inc. SOB and CXR neg. Contineu asa/plavix/statin/coreg, lasix, lisinopril, aldactone, warfarin. 3. PAD - prior bypass BL per [facility] vascular. Pulses dopplered per nursing staff. 4. COPD - no exacerbation - prn aerosols. 5. GERD - pepcid 6. DMt2 - mealtime insuline, long acting, add SSI. Titrate to response. DVT ppx: warfarin. INR 2.0. DC planning: PTOT. Increased difficulty walking lately. NWB until seen by Podiatry. This patient was seen by Delfin Kapoor PA-C under the supervision of Doctor Sherman. <Herminio Whitaker F - Last Filed: 07/15/18 18:29> History of Present Illness The patient is a 57 year old M [] Past Medical History Medical History: Medical History (Last Reviewed 02/04/18 @ 16:06 by Keven Willingham MD) Mural thrombus of cardiac apex (Chronic) I51.3 correction 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 (Chronic) Z79.01 ICD (implantable cardioverter-defibrillator), biventricular, in situ (Chronic) Z95.810 Atherosclerosis of [place] coronary artery of [place] heart without angina pectoris (Chronic) I25.10 PCI to LAD & diagonal in 2009; Diabetes mellitus (Chronic) E11.9 Obesity (Chronic) E66.9 Hypertension (Chronic) I10 Benign prostatic hypertrophy (Chronic) N40.0 COPD (chronic obstructive pulmonary disease) (Chronic) J44.9 GERD (gastroesophageal reflux disease) (Chronic) K21.9 [place] (obstructive sleep apnea) (Chronic) G47.33 PAD (peripheral artery disease) (Chronic) I73.9 Pleural effusion, left (Chronic) J90 HLD (hyperlipidemia) (Chronic) E78.5 Ischemic cardiomyopathy (Chronic) I25.5 Hypokalemia (Acute) E87.6 Hypotension (Acute) I95.9 Acute on chronic renal failure (Acute) N17.9, N18.9 Near syncope (Acute) Systolic CHF, chronic (Chronic) I50.22 Atrial fibrillation (Chronic) I48.91 AV Node RFA 07/11/2015 Light headedness (Acute) R42 Chest pain (Acute) R07.9 Atherosclerosis of [place] coronary artery of [place] heart without angina pectoris I25.10 03/25/2007 EVAN to prox LAD and PTCA to Diag 1; 07/19/2008 PTCA/EVAN to ostium of LAD; 07/31/2008 PTCA to ostial LAD and Diagonal 1; 05/2009 PTCA/EVAN to mid LAD and Diagonal 1 LV apical aneurysm with thrombus History of cardiac pacemaker Onset Date: ~07/11/15 Z95.0 Allergies tramadol Allergy (Verified 07/15/18 11:31) Hives Penicillins Adverse Reaction (Verified 07/15/18 11:31) Nausea Surgical History: Surgical History (Last Reviewed 02/04/18 @ 16:06 by Keven Willingham MD) AICD (automatic cardioverter/defibrillator) present (Chronic) Z95.810 12/2009 implant; S/P PTCA (percutaneous transluminal coronary angioplasty) (Chronic) Z98.61 H/O atrioventricular chris ablation (Chronic) Onset Date: ~07/11/15 Z98.890 History of cholecystectomy Z98.890, Z90.49 S/P aorto-bifemoral bypass surgery Onset Date: ~2003 Z95.828 [facility] - *Family History Paternal Family History: Family History (Last Reviewed 02/04/18 @ 16:06 by Keven Willingham MD) Father Hypertension CAD (coronary artery disease) Sister Cancer Maternal Family History: Family History (Last Reviewed 02/04/18 @ 16:06 by Keven Willingham MD) Father Hypertension CAD (coronary artery disease) Sister Cancer - Physical Exam Vital Signs Temp Pulse Resp BP Pulse Ox 97.9 F 73 16 71/49 L 97 07/15/18 16:05 07/15/18 16:05 07/15/18 16:05 07/15/18 16:22 07/15/18 16:05 Oxygen Delivery Method Room Air Weight: 203 lb Body Mass Index (BMI) 34.8 Finger Stick Blood Glucose 87 Intake and Output for Last 24 Hours 07/13/18 07/14/18 07/15/18 23:59 23:59 23:59 Intake Total 200 / 200 Balance 200 / 200 Laboratory Tests Past 24 Hrs 07/15/18 07/15/18 07/15/18 11:25 11:25 11:25 WBC 12.0 H RBC 4.63 Hgb 13.2 Hct 40.2 MCV 86.8 MCH 28.5 MCHC 32.8 RDW 14.9 H RDW Differential 46.3 H Plt Count 184 MPV 10.6 Immature Gran % (Auto) 0.300 Neut % (Auto) 85.4 H Lymph % (Auto) 4.3 L [place] % (Auto) 9.8 Eos % (Auto) 0.1 Baso % (Auto) 0.1 Absolute Neuts (auto) 10.3 H Absolute Lymphs (auto) 0.51 L Total Counted Not Reportable PT 22.8 H INR 2.0 Sodium 134 L Potassium 3.9 Chloride 98 Carbon Dioxide 24.0 Anion Gap 12 BUN 27 H Creatinine 1.55 H Estim Creat Clear Calc 45.09 Est GFR (MDRD) Af Amer 60 Est GFR (MDRD) Non-Af 50 L BUN/Creatinine Ratio 17.4 Glucose 100 Calcium 8.6 Troponin I < 0.015 B-Natriuretic Peptide 07/15/18 11:25 WBC RBC Hgb Hct MCV MCH MCHC RDW RDW Differential Plt Count MPV Immature Gran % (Auto) Neut % (Auto) Lymph % (Auto) [place] % (Auto) Eos % (Auto) Baso % (Auto) Absolute Neuts (auto) Absolute Lymphs (auto) Total Counted PT INR Sodium Potassium Chloride Carbon Dioxide Anion Gap BUN Creatinine Estim Creat Clear Calc Est GFR (MDRD) Af Amer Est GFR (MDRD) Non-Af BUN/Creatinine Ratio Glucose Calcium Troponin I B-Natriuretic Peptide 341.5 H POC Glucose 07/15/18 07/15/18 16:33 11:41 POC Glucose 104 87 Code Visit Addendum: Dr. Whitaker I personally examined the patient and reviewed the chart. I agree with the above. 57-year-old male with a history of diabetes presenting with a wound on his left fourth toe that is been there for the last 2-3 weeks. He presented to the ER today because he said that there is a slight increase in pain. He is supposed to see podiatry as an outpatient but he has not followed up with them in at least a month. He has known peripheral vascular disease and he has had multiple procedures to return blood flow to his lower extremities which have not been successful. We will obtain ABIs to determine course of care. We will consult podiatry as well as continue antibiotics for cellulitis and diabetic foot wound, will proceed with Zosyn given the likely polymicrobial nature of this infection. OBSV E&M: [id number] Initial observation care L3
--- NOTE | 2018-07-15 16:33 | HP.PCM_ITS ---
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 (4) ICD (implantable cardioverter-defibrillator), biventricular, in situ Status: Chronic (5) Atherosclerosis of barrow coronary artery of barrow heart without angina pectoris Status: Chronic Comment: PCI to LAD & diagonal in 2009; (6) Diabetes mellitus Status: Chronic (7) Obesity Status: Chronic (8) Hypertension Status: Chronic (9) Benign prostatic hypertrophy Status: Chronic (10) COPD (chronic obstructive pulmonary disease) Status: Chronic (11) GERD (gastroesophageal reflux disease) Status: Chronic (12) JU[place]GO (obstructive sleep apnea) Status: Chronic (13) AICD (automatic cardioverter/defibrillator) present Status: Chronic Comment: 12/2009 implant; (14) PAD (peripheral artery disease) Status: Chronic (15) HLD (hyperlipidemia) Status: Chronic (16) Ischemic cardiomyopathy Status: Chronic (17) Hypotension Status: Acute (18) Systolic CHF, chronic Status: Chronic (19) Atrial fibrillation Status: Chronic Comment: AV Node RFA 07/11/2015 History of Present Illness Date of Admission: 07/15/18 Chief Complaint: left 4th toe wound The patient is a 57 year old M with pmhx of CAD, prior stents, chronic systolic CHF with ischemic CM, atrial fibrillation, pacemaker in place, type 2 diabetes, history of mural thrombus, ICD in place, hypertension, BPH, COPD, GERD, obstructive sleep apnea, peripheral artery disease with prior bilateral arterial bypass surgery, hyperlipidemia, who presents to the ER with nonhealing wound on the left 4th toe. He states this was sustained one week prior when he stepped on either gravel or rock salt. He states he has severe neuropathy and has no feeling in his feet or toes. He says the wound did not improve at all and has opened up more, prompting him to come to the ER. He has also had severe chills the past two days. He also has a left heel wound. He was not treated as an outpatient for this. He was last in the hospital in April with pna. He follows podiatry - Dr. Samaniego as an outpatient. He has seen vascular surgery - Dr. Lino [facility] for prior BL arterial bypass. He denies hx of cellulitis or MRSA. His hearing therapist is Dr. Willingham. [] Past Medical History Past Medical History (Chronic Problems): Chronic Problems (Last Reviewed 02/04/18 @ 16:06 by Keven Willingham MD) CAD (coronary artery disease) (Chronic) Mural thrombus of cardiac apex (Chronic) rn long term care 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 (Chronic) ICD (implantable cardioverter-defibrillator), biventricular, in situ (Chronic) Atherosclerosis of barrow coronary artery of barrow heart without angina pectoris (Chronic) PCI to LAD & diagonal in 2009; Diabetes mellitus (Chronic) Obesity (Chronic) Hypertension (Chronic) Benign prostatic hypertrophy (Chronic) COPD (chronic obstructive pulmonary disease) (Chronic) GERD (gastroesophageal reflux disease) (Chronic) JU[place]GO (obstructive sleep apnea) (Chronic) AICD (automatic cardioverter/defibrillator) present (Chronic) 12/2009 implant; PAD (peripheral artery disease) (Chronic) Pleural effusion, left (Chronic) S/P PTCA (percutaneous transluminal coronary angioplasty) (Chronic) HLD (hyperlipidemia) (Chronic) Ischemic cardiomyopathy (Chronic) Systolic CHF, chronic (Chronic) Atrial fibrillation (Chronic) AV Node RFA 07/11/2015 H/O atrioventricular chris ablation (Chronic ~07/11/15) Medical History: Medical History (Last Reviewed 02/04/18 @ 16:06 by Keven Willingham MD) Mural thrombus of cardiac apex (Chronic) I51.3 rn long term care 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 (Chronic) Z79.01 ICD (implantable cardioverter-defibrillator), biventricular, in situ (Chronic) Z95.810 Atherosclerosis of barrow coronary artery of barrow heart without angina pectoris (Chronic) I25.10 PCI to LAD & diagonal in 2009; Diabetes mellitus (Chronic) E11.9 Obesity (Chronic) E66.9 Hypertension (Chronic) I10 Benign prostatic hypertrophy (Chronic) N40.0 COPD (chronic obstructive pulmonary disease) (Chronic) J44.9 GERD (gastroesophageal reflux disease) (Chronic) K21.9 JU[place]GO (obstructive sleep apnea) (Chronic) G47.33 PAD (peripheral artery disease) (Chronic) I73.9 Pleural effusion, left (Chronic) J90 HLD (hyperlipidemia) (Chronic) E78.5 Ischemic cardiomyopathy (Chronic) I25.5 Hypokalemia (Acute) E87.6 Hypotension (Acute) I95.9 Acute on chronic renal failure (Acute) N17.9, N18.9 Near syncope (Acute) Systolic CHF, chronic (Chronic) I50.22 Atrial fibrillation (Chronic) I48.91 AV Node RFA 07/11/2015 Light headedness (Acute) R42 Chest pain (Acute) R07.9 Atherosclerosis of barrow coronary artery of barrow heart without angina pectoris I25.10 03/25/2007 EVAN to prox LAD and PTCA to Diag 1; 07/19/2008 PTCA/EVAN to ostium of LAD; 07/31/2008 PTCA to ostial LAD and Diagonal 1; 05/2009 PTCA/EVAN to mid LAD and Diagonal 1 LV apical aneurysm with thrombus History of cardiac pacemaker Onset Date: ~07/11/15 Z95.0 Allergies tramadol Allergy (Verified 07/15/18 11:31) Hives Penicillins Adverse Reaction (Verified 07/15/18 11:31) Nausea Home Medications: Ambulatory Orders Medication Instructions Recorded Insulin Glargine,Hum.rec.anlog 70 unit SQ QHS 08/16/16 [Nilsa Dang] gabapentin 300 mg capsule 300 mg PO BID cap 06/05/17 insulin aspart U- 100 100 unit/mL 16 unit SC TIDCM ml 06/08/17 subcutaneous pen potassium chloride ER 20 mEq 20 meq PO DAILY #30 tab 09/02/17 tablet,extended release(part/cryst) Atorvastatin Calcium [Lipitor] 40 mg PO QHS 09/07/17 Aspirin [Aspirin EC] 81 mg PO DAILY 05/12/18 Lisinopril [Zestril] 2.5 mg PO DAILY 05/12/18 Spironolactone 25 mg PO DAILY 05/12/18 clopidogrel 75 mg tablet 75 mg PO DAILY #30 tab 05/13/18 famotidine 40 mg tablet 40 mg PO DAILY #30 tab 05/13/18 Albuterol IH (ProAir) [Proair Hfa] 1 - 2 puff INHALATION Q4H PRN PRN 05/19/18 #1 inhaler carvedilol 3.125 mg tablet 3.125 mg PO BID #60 tab 06/09/18 warfarin 5 mg tablet 2.5 mg PO DAILY #0 tab 06/28/18 furosemide 80 mg tablet 80 mg PO BID #60 tab 07/07/18 Surgical History: Surgical History (Last Reviewed 02/04/18 @ 16:06 by Keven Willingham MD) AICD (automatic cardioverter/defibrillator) present (Chronic) Z95.810 12/2009 implant; S/P PTCA (percutaneous transluminal coronary angioplasty) (Chronic) Z98.61 H/O atrioventricular chris ablation (Chronic) Onset Date: ~07/11/15 Z98.890 History of cholecystectomy Z98.890, Z90.49 S/P aorto-bifemoral bypass surgery Onset Date: ~2003 Z95.828 [facility] Surgical History: angioplasty, cholecystectomy, pacemaker implantation, - Psychiatric History: No pertinent psych hx Smoking Status: Former smoker Tobacco Use: Cigarettes, Chew Alcohol: None Drugs: None - *Family History Paternal Family History: Family History (Last Reviewed 02/04/18 @ 16:06 by Keven Willingham MD) Father Hypertension CAD (coronary artery disease) Sister Cancer History Items: Heart Disease - CAD; at approximately 45 years of age Maternal Family History: Family History (Last Reviewed 02/04/18 @ 16:06 by Keven Willingham MD) Father Hypertension CAD (coronary artery disease) Sister Cancer History Items: Cancer - lung cancer Review of Systems Constitutional: Reports: Chills. Denies: Fever, Weight Change HEENT: Denies: Head Aches, Sinus Congestion, Sinus Drainage Cardiovascular: Denies: Chest Pain, Palpitations Respiratory: Denies: Cough, Shortness of breath at rest, Sputum production Gastrointestinal: Denies: Abdominal Pain, Nausea, Vomiting Genitourinary: Denies: Dysuria Musculoskeletal: Denies: Joint Pain, Joint Tenderness Skin: Denies: Rash, Wounds Neurological: Denies: Numbness, Tingling, Focal weakness Psychiatric: Denies: Anxiety, Depression, Homicidal Ideations, Suicidal Ideations Hematologic/ Lymphatic: Denies: Easy Bruising, Easy Bleeding VTE Information - Inpt Only VTE Present on Admission: No VTE Mechan Device Prophylaxis: None VTE Pharm Prophylaxis ordered?: Yes Patient Problems: Active and Suspected Problems (Last Reviewed 02/04/18 @ 16:06 by Keven Willingham MD) Wound cellulitis (Acute) - Physical Exam General: Alert, Oriented x3, Cooperative HEENT: Atraumatic, PERRLA, EOMI, Normocephalic Neck: Supple, No JVD, Negative Carotid Bruits Lungs: Clear to auscultation, Normal air movement Cardiovascular: Regular rate, No murmurs Abdomen: Bowel Sounds Present, Soft, Non Tender Extremities: No edema, Capillary Refill Less than 3 Seconds Skin: No rashes, No breakdown, - - open wound left 4th digit, some erythema, cool to the touch, distal pulses not palpable. Chronic venous changes present BL LE. Left heal wound. Malodorous wounds. Musculoskeletal: No Tenderness to Palpation of Joints or Extremities Neurological: Cranial nerves II-XII grossly intact Psych/Mental Status: Normal Affect, Appropriate, Alert and oriented to time, place, person, mood and affect Vital Signs Temp Pulse Resp BP Pulse Ox 97.9 F 73 16 71/49 L 97 07/15/18 16:05 07/15/18 16:05 07/15/18 16:05 07/15/18 16:22 07/15/18 16:05 Oxygen Delivery Method Room Air Weight: 203 lb Body Mass Index (BMI) 34.8 Finger Stick Blood Glucose 87 Laboratory Tests Past 24 Hrs 07/15/18 07/15/18 07/15/18 11:25 11:25 11:25 WBC 12.0 H RBC 4.63 Hgb 13.2 Hct 40.2 MCV 86.8 MCH 28.5 MCHC 32.8 RDW 14.9 H RDW Differential 46.3 H Plt Count 184 MPV 10.6 Immature Gran % (Auto) 0.300 Neut % (Auto) 85.4 H Lymph % (Auto) 4.3 L [place] % (Auto) 9.8 Eos % (Auto) 0.1 Baso % (Auto) 0.1 Absolute Neuts (auto) 10.3 H Absolute Lymphs (auto) 0.51 L Total Counted Not Reportable PT 22.8 H INR 2.0 Sodium 134 L Potassium 3.9 Chloride 98 Carbon Dioxide 24.0 Anion Gap 12 BUN 27 H Creatinine 1.55 H Estim Creat Clear Calc 45.09 Est GFR (MDRD) Af Amer 60 Est GFR (MDRD) Non-Af 50 L BUN/Creatinine Ratio 17.4 Glucose 100 Calcium 8.6 Troponin I < 0.015 B-Natriuretic Peptide 07/15/18 11:25 WBC RBC Hgb Hct MCV MCH MCHC RDW RDW Differential Plt Count MPV Immature Gran % (Auto) Neut % (Auto) Lymph % (Auto) [place] % (Auto) Eos % (Auto) Baso % (Auto) Absolute Neuts (auto) Absolute Lymphs (auto) Total Counted PT INR Sodium Potassium Chloride Carbon Dioxide Anion Gap BUN Creatinine Estim Creat Clear Calc Est GFR (MDRD) Af Amer Est GFR (MDRD) Non-Af BUN/Creatinine Ratio Glucose Calcium Troponin I B-Natriuretic Peptide 341.5 H POC Glucose 07/15/18 11:41 POC Glucose 87 Assessment/Plan All Active Problems (Last Reviewed 02/04/18 @ 16:06 by Keven Willingham MD) Wound cellulitis (Acute) Hypokalemia (Acute) Hypotension (Acute) Acute on chronic renal failure (Acute) Near syncope (Acute) Light headedness (Acute) Chest pain (Acute) Pneumonia (Resolved) 1. Nonhealing diabetic foot wound - received vanc and zosyn in ER. Ancef started. Temp 100, mild leukocytosis. Very poor circulation - prior BL bypass for PAD. Consult to Dr. Samaniego. Xray without signs of osteo. Former smoker. No prior wound cx in computer. C/s to wound care. MRSA/MSSA screen sent. Wound cx sent. Blood cx taken in ER. 2. Hx CAD - prior CABG, pt of Dr. Willingham, also with hx of systolic CHF, ischemic CM, Afib. Consider cardiology c/s if surgery required. Trop neg. BNP elevated but no inc. SOB and CXR neg. Contineu asa/plavix/statin/coreg, lasix, lisinopril, aldactone, warfarin. 3. PAD - prior bypass BL per [facility] vascular. Pulses dopplered per nursing staff. 4. COPD - no exacerbation - prn aerosols. 5. GERD - pepcid 6. DMt2 - mealtime insuline, long acting, add SSI. Titrate to response. DVT ppx: warfarin. INR 2.0. DC planning: PTOT. Increased difficulty walking lately. NWB until seen by Podiatry. This patient was seen by Delfin Kapoor PA-C under the supervision of Doctor Sherman. <Herminio Whitaker F - Last Filed: 07/15/18 18:29> History of Present Illness The patient is a 57 year old M [] Past Medical History Medical History: Medical History (Last Reviewed 02/04/18 @ 16:06 by Keven Willingham MD) Mural thrombus of cardiac apex (Chronic) I51.3 residential 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 (Chronic) Z79.01 ICD (implantable cardioverter-defibrillator), biventricular, in situ (Chronic) Z95.810 Atherosclerosis of barrow coronary artery of barrow heart without angina pectoris (Chronic) I25.10 PCI to LAD & diagonal in 2009; Diabetes mellitus (Chronic) E11.9 Obesity (Chronic) E66.9 Hypertension (Chronic) I10 Benign prostatic hypertrophy (Chronic) N40.0 COPD (chronic obstructive pulmonary disease) (Chronic) J44.9 GERD (gastroesophageal reflux disease) (Chronic) K21.9 [place] (obstructive sleep apnea) (Chronic) G47.33 PAD (peripheral artery disease) (Chronic) I73.9 Pleural effusion, left (Chronic) J90 HLD (hyperlipidemia) (Chronic) E78.5 Ischemic cardiomyopathy (Chronic) I25.5 Hypokalemia (Acute) E87.6 Hypotension (Acute) I95.9 Acute on chronic renal failure (Acute) N17.9, N18.9 Near syncope (Acute) Systolic CHF, chronic (Chronic) I50.22 Atrial fibrillation (Chronic) I48.91 AV Node RFA 07/11/2015 Light headedness (Acute) R42 Chest pain (Acute) R07.9 Atherosclerosis of barrow coronary artery of barrow heart without angina pectoris I25.10 03/25/2007 EVAN to prox LAD and PTCA to Diag 1; 07/19/2008 PTCA/EVAN to ostium of LAD; 07/31/2008 PTCA to ostial LAD and Diagonal 1; 05/2009 PTCA/EVAN to mid LAD and Diagonal 1 LV apical aneurysm with thrombus History of cardiac pacemaker Onset Date: ~07/11/15 Z95.0 Allergies tramadol Allergy (Verified 07/15/18 11:31) Hives Penicillins Adverse Reaction (Verified 07/15/18 11:31) Nausea Surgical History: Surgical History (Last Reviewed 02/04/18 @ 16:06 by Keven Willingham MD) AICD (automatic cardioverter/defibrillator) present (Chronic) Z95.810 12/2009 implant; S/P PTCA (percutaneous transluminal coronary angioplasty) (Chronic) Z98.61 H/O atrioventricular chris ablation (Chronic) Onset Date: ~07/11/15 Z98.890 History of cholecystectomy Z98.890, Z90.49 S/P aorto-bifemoral bypass surgery Onset Date: ~2003 Z95.828 [facility] - *Family History Paternal Family History: Family History (Last Reviewed 02/04/18 @ 16:06 by Keven Willingham MD) Father Hypertension CAD (coronary artery disease) Sister Cancer Maternal Family History: Family History (Last Reviewed 02/04/18 @ 16:06 by Keven Willingham MD) Father Hypertension CAD (coronary artery disease) Sister Cancer - Physical Exam Vital Signs Temp Pulse Resp BP Pulse Ox 97.9 F 73 16 71/49 L 97 07/15/18 16:05 07/15/18 16:05 07/15/18 16:05 07/15/18 16:22 07/15/18 16:05 Oxygen Delivery Method Room Air Weight: 203 lb Body Mass Index (BMI) 34.8 Finger Stick Blood Glucose 87 Intake and Output for Last 24 Hours 07/13/18 07/14/18 07/15/18 23:59 23:59 23:59 Intake Total 200 / 200 Balance 200 / 200 Laboratory Tests Past 24 Hrs 07/15/18 07/15/18 07/15/18 11:25 11:25 11:25 WBC 12.0 H RBC 4.63 Hgb 13.2 Hct 40.2 MCV 86.8 MCH 28.5 MCHC 32.8 RDW 14.9 H RDW Differential 46.3 H Plt Count 184 MPV 10.6 Immature Gran % (Auto) 0.300 Neut % (Auto) 85.4 H Lymph % (Auto) 4.3 L [place] % (Auto) 9.8 Eos % (Auto) 0.1 Baso % (Auto) 0.1 Absolute Neuts (auto) 10.3 H Absolute Lymphs (auto) 0.51 L Total Counted Not Reportable PT 22.8 H INR 2.0 Sodium 134 L Potassium 3.9 Chloride 98 Carbon Dioxide 24.0 Anion Gap 12 BUN 27 H Creatinine 1.55 H Estim Creat Clear Calc 45.09 Est GFR (MDRD) Af Amer 60 Est GFR (MDRD) Non-Af 50 L BUN/Creatinine Ratio 17.4 Glucose 100 Calcium 8.6 Troponin I < 0.015 B-Natriuretic Peptide 07/15/18 11:25 WBC RBC Hgb Hct MCV MCH MCHC RDW RDW Differential Plt Count MPV Immature Gran % (Auto) Neut % (Auto) Lymph % (Auto) [place] % (Auto) Eos % (Auto) Baso % (Auto) Absolute Neuts (auto) Absolute Lymphs (auto) Total Counted PT INR Sodium Potassium Chloride Carbon Dioxide Anion Gap BUN Creatinine Estim Creat Clear Calc Est GFR (MDRD) Af Amer Est GFR (MDRD) Non-Af BUN/Creatinine Ratio Glucose Calcium Troponin I B-Natriuretic Peptide 341.5 H POC Glucose 07/15/18 07/15/18 16:33 11:41 POC Glucose 104 87 Code Visit Addendum: Dr. Whitaker I personally examined the patient and reviewed the chart. I agree with the above. 57-year-old male with a history of diabetes presenting with a wound on his left fourth toe that is been there for the last 2-3 weeks. He presented to the ER today because he said that there is a slight increase in pain. He is supposed to see podiatry as an outpatient but he has not followed up with them in at least a month. He has known peripheral vascular disease and he has had multiple procedures to return blood flow to his lower extremities which have not been successful. We will obtain ABIs to determine course of care. We will consult podiatry as well as continue antibiotics for cellulitis and diabetic foot wound, will proceed with Zosyn given the likely polymicrobial nature of this infection. OBSV E&M: [id number] Initial observation care L3
[2018-07-15 16:56] LABS: Bedside Glucose 104 mg/dL (70-110)
[2018-07-15] MEDS: Glucerna Shake 120 ML LIQUID PO (17:09)
[2018-07-15] MEDS: 0.9% NaCl Peripheral Flush Adult/Peds IV (21:23)
[2018-07-15 21:30] LABS: Bedside Glucose 251 mg/dL (70-110)
[2018-07-15 22:10] LABS: Bacteria 0 SEEN /hpf (None Seen); Mucous, Urine 0 SEEN /hpf (<or=2+); Red Blood Cells-Urine 0 SEEN /hpf (0-5); Squamous Epithelial Cells - UA 0 SEEN /hpf (0-5); White Blood Cells 0 SEEN /hpf (0-5)
[2018-07-15 22:14] LABS: Color, Urine Yellow (Yellow); Glucose, Dipstick 50 mg/dl (Normal); Ketone-Dipstick Negative (Negative); Leukocyte Esterase-Dipstick Negative /ul (Negative); Nitrite-Dipstick Negative (Negative); Occult Blood-Urine Negative /ul (Negative); Protein-Dipstick Negative (Negative); Specific Gravity, Urine 1.015 (1.002-1.030); Urine Bilirubin Dipstick Negative (Negative); Urine Clarity Clear (Clear); Urine Urobilinogen 1 mg/dl (Normal)
[2018-07-15] MEDS: Insulin Lispro 100 UNIT/ML INSULN.PEN SQ (22:23)
[2018-07-15] MEDS: Gabapentin 300 MG Capsule PO (22:24)
[2018-07-15] MEDS: Atorvastatin Calcium 40 MG Tablet PO (22:24)
[2018-07-15] MEDS: Acetaminophen 325 MG Tablet 650 MG PO (23:11)
[2018-07-16 02:43] VITALS: BP 92/72; PULSE 81; RESP 18; TEMP 36.6; O2SAT 97
[2018-07-16 06:10] LABS: Absolute Lymphocyte Count 0.71 X10^3/ul (0.83-4.51); Absolute Neutrophil Count 8.4 X10^3/uL (2.0-7.7); Basophil# 0.01 X10^3/uL; Basophil% 0.1 % (0-1); Eosinophil# 0.03 X10^3/uL; Eosinophils% 0.3 % (0-5); Hematocrit 35.1 % (40-54); Hemoglobin 11.6 g/dl (13.0-16.5); Lymphocyte # 0.71 X10^3/ul (4.0); Lymphocyte % 6.8 % (19-41); Mean Corpuscular Volume 87.8 fL (80-94); Mean Platelet Vol. 10.3 fl (6.2-12.0); Monocyte# 1.26 X10^3/uL; Neutrophil # 8.44 X10^3/uL (2.7-7.7); Neutrophil % 80.5 % (47-70); Platelet Count 153 K/mm3 (150-450); RBC Distribution Width CV 14.8 % (11.6-14.6); RBC Distribution Width SD 46.2 fl (35.1-43.9); White Blood Count 10.5 K/mm3 (4.4-11.0)
[2018-07-16 06:15] LABS: Anion Gap 12 (5-15); BUN 29 mg/dL (7-18); Chloride 100 mmol/L (98-107); Creatinine, Serum 1.38 mg/dL (0.70-1.30); EST Glomerular Filtration Rate 57 mL/min (>60); Est Glom Filt Rate - Afr Amer 69 mL/min (>60); Estimated Creatinine Clearance 50.64 ml/min; Glucose 176 mg/dL (74-106); Potassium 4.1 mmol/L (3.5-5.1); Sodium Level 134 mmol/L (136-145)
[2018-07-16 06:16] LABS: International Normalized Ratio 2.8; Prothrombin Time (Protime)PT. 29.4 SECONDS (11.7-14.9)
[2018-07-16 06:17] LABS: POSITIVE COUNT NO; POSITIVE DIFFERENTIAL NO; POSITIVE MORPHOLOGY NO
[2018-07-16] MEDS: Insulin Lispro 100 UNIT/ML INSULN.PEN SQ ×3 (06:37→13:03)
--- NOTE | 2018-07-16 07:00 | PCM.CONS.GEN ---
Reason for Consult Date of Consultation: 07/16/18 History of Present Illness: The patient is a 57 year old M with pmh for diabetes, pad, a.fib on coumadin, chf who recently developed a wound to his left 4th toe. he states the wound started about 1 week ago. He thinks it may have started when he stepped on a rock. He was barefoot at time of injury. He states he attempted to treat this himself. over the past few days, the toe has turned black and he started feeling chills prompting him to present to emergency room. he was admitted to hospital and placed on antibiotics. of note, patient has history of pad and had bypass in 2004. he had pvr in 2017 with circulation compromised. he had f/u pvr in 2018 but never had performed. he has appointment with Dr. Hilda Lino in july. He has wound to his left heel that has been present for several weeks. He has been treating this on his own. Past Medical History Past Medical History (Chronic Problems): Chronic Problems (Last Reviewed 02/04/18 @ 16:06 by Keven Willingham MD) CAD (coronary artery disease) (Chronic) Mural thrombus of cardiac apex (Chronic) snf 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 (Chronic) ICD (implantable cardioverter-defibrillator), biventricular, in situ (Chronic) Atherosclerosis of [place] coronary artery of [place] heart without angina pectoris (Chronic) PCI to LAD & diagonal in 2009; Diabetes mellitus (Chronic) Obesity (Chronic) Hypertension (Chronic) Benign prostatic hypertrophy (Chronic) COPD (chronic obstructive pulmonary disease) (Chronic) GERD (gastroesophageal reflux disease) (Chronic) [place] (obstructive sleep apnea) (Chronic) AICD (automatic cardioverter/defibrillator) present (Chronic) 12/2009 implant; PAD (peripheral artery disease) (Chronic) Pleural effusion, left (Chronic) S/P PTCA (percutaneous transluminal coronary angioplasty) (Chronic) HLD (hyperlipidemia) (Chronic) Ischemic cardiomyopathy (Chronic) Systolic CHF, chronic (Chronic) Atrial fibrillation (Chronic) AV Node RFA 07/11/2015 H/O atrioventricular chris ablation (Chronic ~07/11/15) Medical History: Medical History (Last Reviewed 02/04/18 @ 16:06 by Keven Willingham MD) Mural thrombus of cardiac apex (Chronic) I51.3 snf 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 (Chronic) Z79.01 ICD (implantable cardioverter-defibrillator), biventricular, in situ (Chronic) Z95.810 Atherosclerosis of [place] coronary artery of [place] heart without angina pectoris (Chronic) I25.10 PCI to LAD & diagonal in 2009; Diabetes mellitus (Chronic) E11.9 Obesity (Chronic) E66.9 Hypertension (Chronic) I10 Benign prostatic hypertrophy (Chronic) N40.0 COPD (chronic obstructive pulmonary disease) (Chronic) J44.9 GERD (gastroesophageal reflux disease) (Chronic) K21.9 [place] (obstructive sleep apnea) (Chronic) G47.33 PAD (peripheral artery disease) (Chronic) I73.9 Pleural effusion, left (Chronic) J90 HLD (hyperlipidemia) (Chronic) E78.5 Ischemic cardiomyopathy (Chronic) I25.5 Hypokalemia (Acute) E87.6 Hypotension (Acute) I95.9 Acute on chronic renal failure (Acute) N17.9, N18.9 Near syncope (Acute) Systolic CHF, chronic (Chronic) I50.22 Atrial fibrillation (Chronic) I48.91 AV Node RFA 07/11/2015 Light headedness (Acute) R42 Chest pain (Acute) R07.9 Atherosclerosis of [place] coronary artery of [place] heart without angina pectoris I25.10 03/25/2007 EVAN to prox LAD and PTCA to Diag 1; 07/19/2008 PTCA/EVAN to ostium of LAD; 07/31/2008 PTCA to ostial LAD and Diagonal 1; 05/2009 PTCA/EVAN to mid LAD and Diagonal 1 LV apical aneurysm with thrombus History of cardiac pacemaker Onset Date: ~07/11/15 Z95.0 Allergies tramadol Allergy (Verified 07/15/18 11:31) Hives Penicillins Adverse Reaction (Verified 07/15/18 11:31) Nausea Home Medications: Ambulatory Orders Medication Instructions Recorded Insulin Glargine,Hum.rec.anlog 70 unit SQ QHS 08/16/16 [Nilsa Dang] gabapentin 300 mg capsule 300 mg PO BID cap 06/05/17 insulin aspart U- 100 100 unit/mL 16 unit SC TIDCM ml 06/08/17 subcutaneous pen potassium chloride ER 20 mEq 20 meq PO DAILY #30 tab 09/02/17 tablet,extended release(part/cryst) Atorvastatin Calcium [Lipitor] 40 mg PO QHS 09/07/17 Aspirin [Aspirin EC] 81 mg PO DAILY 05/12/18 Lisinopril [Zestril] 2.5 mg PO DAILY 05/12/18 Spironolactone 25 mg PO DAILY 05/12/18 clopidogrel 75 mg tablet 75 mg PO DAILY #30 tab 05/13/18 famotidine 40 mg tablet 40 mg PO DAILY #30 tab 05/13/18 Albuterol IH (ProAir) [Proair Hfa] 1 - 2 puff INHALATION Q4H PRN PRN 05/19/18 #1 inhaler carvedilol 3.125 mg tablet 3.125 mg PO BID #60 tab 06/09/18 warfarin 5 mg tablet 2.5 mg PO DAILY #0 tab 06/28/18 furosemide 80 mg tablet 80 mg PO BID #60 tab 07/07/18 Surgical History: Surgical History (Last Reviewed 02/04/18 @ 16:06 by Keven Willingham MD) AICD (automatic cardioverter/defibrillator) present (Chronic) Z95.810 12/2009 implant; S/P PTCA (percutaneous transluminal coronary angioplasty) (Chronic) Z98.61 H/O atrioventricular chris ablation (Chronic) Onset Date: ~07/11/15 Z98.890 History of cholecystectomy Z98.890, Z90.49 S/P aorto-bifemoral bypass surgery Onset Date: ~2003 Z95.828 [facility] Medical Surgical History: angioplasty, cholecystectomy, pacemaker implantation, - Psychiatric History: No pertinent psych hx Smoking Status: Former smoker Tobacco Use: Cigarettes, Chew Alcohol: None Drugs: None - *Family History Paternal Family History: Family History (Last Reviewed 02/04/18 @ 16:06 by Keven Willingham MD) Father Hypertension CAD (coronary artery disease) Sister Cancer History Items: Heart Disease - CAD; at approximately 45 years of age Maternal Family History: Family History (Last Reviewed 02/04/18 @ 16:06 by Keven Willingham MD) Father Hypertension CAD (coronary artery disease) Sister Cancer History Items: Cancer - lung cancer Patient Problems: Active and Suspected Problems (Last Reviewed 02/04/18 @ 16:06 by Keven Willingham MD) Wound cellulitis (Acute) Subjective: see hpi Objective: Patient is alert and orientated x 3. he does not appear in any distress. vascular: DP and PT pulses b/l are nonpalpable. posterior tibial pulse left is monophasic with doppler. dorsalis pedis left is nonaudible. dorsalis pedis and posterior tibial pulses right are nonaudible. there is black discoloration of left 4th toe with open wound extending to left 3rd interspace. b/l lower extremity is cool to touch. cft is delayed. hair growth is absent. Derm: There is dark discoloration of left 4th toe. there is full thickness ulceration along the medial 4th toe extending to 3rd interspace. there is fibrotic slough within base of wound consistent with necrotic changes due to arterial insufficiency. no purulence was expressed. erythema is minimal to left foot. The plantar aspect of left heel has noninfected fissure. m/s: No calf pain present b/l. protective sensation is absent to b/l lower extremity. xrays: xrays of left foot reviewed. no osseous distruction to suggest osteomyelitis. no gas in soft-tissue. - Physical Exam Vital Signs Temp Pulse Resp BP Pulse Ox 98 F 81 18 92/72 97 07/16/18 02:43 07/16/18 02:43 07/16/18 02:43 07/16/18 02:43 07/16/18 02:43 Oxygen Delivery Method Room Air Weight: 92.079 kg Body Mass Index (BMI) 34.8 Finger Stick Blood Glucose 87 Intake and Output for Last 24 Hours 07/14/18 07/15/18 07/16/18 23:59 23:59 23:59 Intake Total 973 / 973 405 / 405 Output Total 300 / 300 325 / 325 Balance 673 / 673 80 / 80 Laboratory Tests Past 24 Hrs 07/15/18 07/15/18 07/15/18 11:25 11:25 11:25 WBC 12.0 H RBC 4.63 Hgb 13.2 Hct 40.2 MCV 86.8 MCH 28.5 MCHC 32.8 RDW 14.9 H RDW Differential 46.3 H Plt Count 184 MPV 10.6 Immature Gran % (Auto) 0.300 Neut % (Auto) 85.4 H Lymph % (Auto) 4.3 L Scott % (Auto) 9.8 Eos % (Auto) 0.1 Baso % (Auto) 0.1 Absolute Neuts (auto) 10.3 H Absolute Lymphs (auto) 0.51 L Total Counted Not Reportable PT 22.8 H INR 2.0 Sodium 134 L Potassium 3.9 Chloride 98 Carbon Dioxide 24.0 Anion Gap 12 BUN 27 H Creatinine 1.55 H Estim Creat Clear Calc 45.09 Est GFR (MDRD) Af Amer 60 Est GFR (MDRD) Non-Af 50 L BUN/Creatinine Ratio 17.4 Glucose 100 Calcium 8.6 Troponin I < 0.015 B-Natriuretic Peptide Urine Color Urine Clarity Urine pH Ur Specific [place] Urine Protein Urine Glucose (UA) Urine Ketones Urine Occult Blood Urine Nitrite Urine Bilirubin Urine Urobilinogen Ur Leukocyte Esterase Urine RBC Urine WBC Ur Squamous Epith Cells Urine Bacteria Urine Mucus 07/15/18 07/15/18 07/16/18 11:25 22:00 05:36 WBC 10.5 RBC 4.00 L Hgb 11.6 L Hct 35.1 L MCV 87.8 MCH 29.0 MCHC 33.0 RDW 14.8 H RDW Differential 46.2 H Plt Count 153 MPV 10.3 Immature Gran % (Auto) 0.300 Neut % (Auto) 80.5 H Lymph % (Auto) 6.8 L Scott % (Auto) 12.0 H Eos % (Auto) 0.3 Baso % (Auto) 0.1 Absolute Neuts (auto) 8.4 H Absolute Lymphs (auto) 0.71 L Total Counted Not Reportable PT INR Sodium Potassium Chloride Carbon Dioxide Anion Gap BUN Creatinine Estim Creat Clear Calc Est GFR (MDRD) Af Amer Est GFR (MDRD) Non-Af BUN/Creatinine Ratio Glucose Calcium Troponin I B-Natriuretic Peptide 341.5 H Urine Color Yellow Urine Clarity Clear Urine pH 6.0 Ur Specific [place] 1.015 Urine Protein Negative Urine Glucose (UA) 50 H Urine Ketones Negative Urine Occult Blood Negative Urine Nitrite Negative Urine Bilirubin Negative Urine Urobilinogen 1 H Ur Leukocyte Esterase Negative Urine RBC 0 SEEN Urine WBC 0 SEEN Ur Squamous Epith Cells 0 SEEN Urine Bacteria 0 SEEN Urine Mucus 0 SEEN 07/16/18 07/16/18 05:36 05:36 WBC RBC Hgb Hct MCV MCH MCHC RDW RDW Differential Plt Count MPV Immature Gran % (Auto) Neut % (Auto) Lymph % (Auto) Scott % (Auto) Eos % (Auto) Baso % (Auto) Absolute Neuts (auto) Absolute Lymphs (auto) Total Counted PT 29.4 H INR 2.8 Sodium 134 L Potassium 4.1 Chloride 100 Carbon Dioxide 22.0 Anion Gap 12 BUN 29 H Creatinine 1.38 H Estim Creat Clear Calc 50.64 Est GFR (MDRD) Af Amer 69 Est GFR (MDRD) Non-Af 57 L BUN/Creatinine Ratio 21.0 H Glucose 176 H Calcium 8.0 L Troponin I B-Natriuretic Peptide Urine Color Urine Clarity Urine pH Ur Specific [place] Urine Protein Urine Glucose (UA) Urine Ketones Urine Occult Blood Urine Nitrite Urine Bilirubin Urine Urobilinogen Ur Leukocyte Esterase Urine RBC Urine WBC Ur Squamous Epith Cells Urine Bacteria Urine Mucus POC Glucose 07/15/18 07/15/18 07/15/18 21:25 16:33 11:41 POC Glucose 251 H 104 87 Assessment/Plan All Active Problems (Last Reviewed 02/04/18 @ 16:06 by Keven Willingham MD) Wound cellulitis (Acute) Hypokalemia (Acute) Hypotension (Acute) Acute on chronic renal failure (Acute) Near syncope (Acute) Light headedness (Acute) Chest pain (Acute) Pneumonia (Resolved) Patient was examined and informed of findings. patient has early gangranous changes to left 4th toe the result of localized trauma to toe. There is associated cellulitis and I do recommend he continue with antibiotic due to redness. no major drainage at this time. Patient will likely require toe/partial 4th ray amputation due to extensive skin nonviability/loss of soft-tissue. My greatest concern at this time is the expected pad of left lower extremity. I fear any amputation at this time will result in further compromise of soft-tissue. The foot appears stable. I recommend treating this 4th toe with betadine daily and continuing antibiotics. Recommend pvr to assess lower extremity perfusion. Recommend vascular consultation to determine if any vascular intervention prior to amputation is necessary. I recommend getting INR down to <1.5 in anticipation for foot surgery. Will likely plan on amputation once pvr and vascular consultation obtained. in the event that foot condition changes prompting urgent I&D, will perform as needed. recommend b/l offloading boots while in bed. recommend santyl to left heel. will order ct scan of left foot
--- NOTE | 2018-07-16 07:27 | CT_ITS ---
STUDY: CT LEFT FOOT REASON FOR EXAM: Male, 57 years old. Fourth toe ulcer. History of PID, diabetes, CAD, hypertension, atrial fibrillation. RADIATION DOSAGE (If Supplied By Facility): CTDIvol = ( 15.35 ) mGy, DLP = ( 376.79 ) mGycm TECHNIQUE: Thin section transaxial imaging of the foot was obtained, with sagittal and coronal reconstructed images. Individualized dose optimization techniques were used for this CT. COMPARISON: 3 views of the left foot July 15, 2018. FINDINGS: There is a small enthesophyte involving the posterior superior calcaneus at the site of insertion of the Achilles tendon. Minor mottled demineralization in the talus and remaining tarsal bones. Normal visualized tibiotalar, subtalar, talonavicular, calcaneocuboid, tarsal and tarsometatarsal articulations. There is 5 mm lucency with loss of cortical definition at the anteromedial periarticular margin of the base of the first metatarsal (series 6 on image 67, series 602 image 39). Subarticular lucency also seen in the opposing margins of the inferomedial aspect of the lateral cuneiform and inferomedial base of the third metatarsal on series 601 images 78-79. There is well corticated focal invagination of the plantar margin of the head of the fifth metatarsal on series 601 image 84. Mild mottled demineralization in the heads of the metatarsals. There is slight degenerative narrowing and valgus deviation at the metatarsophalangeal joint of the great toe. Normal tibial and fibular sesamoid bones. Normal interphalangeal joint of the great toe. Normal phalanges of the great toe. Normal second through fifth metatarsophalangeal joints. Normal interphalangeal joints and phalanges of the lesser toes. There is minor soft tissue swelling in the distal lower leg compared to the right that extends through the foot up to the bases of the toes. There is a plantar wound between the bases of the third and fourth toes with a few gas bubbles in the underlying tissues. There is no demonstrated periosteal reaction, osseous destructive lesion, or acute fracture. CT/Extremity Lower without Contra IMPRESSION: 1. Mild soft tissue swelling extending from the distal lower leg through the foot to the base of the toes. There is a small plantar wound and a few gas bubbles in the underlying soft tissues between the bases of the third and fourth toes. 2. No CT sign of acute osteomyelitis in the area of the soft tissue wound. If clinical suspicion warrants additional imaging, three-phase bone scan or MRI may be useful. 3. Small areas of subcortical/subarticular lucency with some loss of cortical definition noted at the anteromedial paratracheal margin of the base of the first metatarsal, as well as the opposing inferomedial surfaces of the lateral cuneiform and base of the third metatarsal. These may be components of the mottled demineralization seen elsewhere in the foot, but osteomyelitis at these sites difficult to exclude. Again, three-phase bone scan or MRI may be useful for confirmation if clinically suspicious. Electronically Signed: Mitchell Holland MD at 14:46 EST , Service support ,
[2018-07-16 07:40] VITALS: BP 105/75; PULSE 78; RESP 18; TEMP 36.9; O2SAT 100
--- NOTE | 2018-07-16 07:41 | NURSING ---
PT C/O SHARP CHEST PAIN. DR SILVA NOTIFIED. O2 PLACED @ 3L NC. STAT EKG.
[2018-07-16 07:45] VITALS: O2SAT 98
--- NOTE | 2018-07-16 07:53 | NURSING ---
SUZETTE POLO AWARE OF CHEST PAIN/SOB. STAT TROPONIN ORDERED.
--- NOTE | 2018-07-16 08:20 | CPS ---
O2 started by nursing d/t pt c'o CP.
[2018-07-16 10:00] VITALS: PULSE 80
[2018-07-16] MEDS: Collagenase 30gm Tube 1 APPLIC TOPICAL (10:03)
--- NOTE | 2018-07-16 10:17 | NURSING ---
wound photo: left heel
[2018-07-16] MEDS: Aspirin E.C. 81 MG Tablet PO (10:19)
[2018-07-16] MEDS: Glucerna Shake 120 ML LIQUID PO ×2 (10:19→13:02)
--- NOTE | 2018-07-16 10:19 | NURSING ---
wound photo: left 4th toe (plantar surface)
--- NOTE | 2018-07-16 10:20 | NURSING ---
wound photo: left 4th toe (dorsal surface)
[2018-07-16] MEDS: Insulin Lispro 100 UNIT/ML INSULN.PEN 16 UNIT SC ×2 (10:21→13:04)
[2018-07-16] MEDS: Gabapentin 300 MG Capsule PO (10:22)
[2018-07-16] MEDS: Famotidine 20 MG Tablet 40 MG PO (10:22)
[2018-07-16] MEDS: Furosemide 80 MG Tablet PO ×2 (10:22→17:19)
[2018-07-16] MEDS: Clopidogrel Bisulfate 75 MG Tablet PO (10:22)
[2018-07-16] MEDS: Carvedilol 3.125 MG TABLET PO (10:22)
[2018-07-16] MEDS: Spironolactone 25 MG Tablet PO (10:22)
[2018-07-16] MEDS: Lisinopril 2.5 MG Tablet PO (10:25)
[2018-07-16 11:36] LABS: Bedside Glucose 167 mg/dL (70-110)
--- NOTE | 2018-07-16 11:37 | CHAPLAIN ---
Type of Pastoral Visit _x__ Initial Visit ___ Follow-up Visit ___ On-call Visit ___ General Patient Visit ___ Spiritual Assessment ___ Family Conference ___ Bereavement ___ Rapid Response ___ Code Blue ___ Other (describe below) Pastoral Care Referral From _x__ Patient ___ Family ___ Nurse ___ Physician ___ Geophysical Manager ___ Vocational Rehabilitation Technician ___ Other (describe below) Sacrament/Intervention _x__ Active listening ___ Anointing ___ Synagogue ___ Bereavement ___ Communion _x__ Isabella exploration ___ _x__ Life review _x__ Prayer ___ Reconciliation ___ Sacrament of Sick _x__ Supportive presence ___ Wedding ___ Other (describe below) Pastoral Comments patient 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
[2018-07-16 11:41] LABS: Bedside Glucose 192 mg/dL (70-110)
[2018-07-16] MEDS: Magnesium Hydroxide 30 ML UDC PO (13:09)
[2018-07-16 14:00] VITALS: BP 98/73; PULSE 80; RESP 18; TEMP 37.3; O2SAT 98
--- NOTE | 2018-07-16 14:54 | PCM.DC.SUM ---
<Delfin Kapoor - Last Filed: 07/16/18 14:54> Discharge Date and Diagnosis Date of Admission: 07/15/18 Date of Discharge: 07/16/18 - Primary Discharge Diagnosis Active and Suspected Problems (Last Reviewed 02/04/18 @ 16:06 by Keven Willingahm MD) Nonhealing left foot fourth digit diabetic wound with gram-negative rods, gram-positive organisms Severe PAD CAD with prior stents Systolic congestive heart failure with ischemic cardiomyopathy History of mural thrombus AICD in place Biventricular pacemaker in place Chronic A. 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) ICD (implantable cardioverter-defibrillator), biventricular, in situ (Chronic) Atherosclerosis of [place] coronary artery of [place] heart without angina pectoris (Chronic) PCI to LAD & diagonal in 2009; Diabetes mellitus (Chronic) Obesity (Chronic) Hypertension (Chronic) Benign prostatic hypertrophy (Chronic) COPD (chronic obstructive pulmonary disease) (Chronic) GERD (gastroesophageal reflux disease) (Chronic) [place] (obstructive sleep apnea) (Chronic) AICD (automatic cardioverter/defibrillator) present (Chronic) 12/2009 implant; PAD (peripheral artery disease) (Chronic) Pleural effusion, left (Chronic) S/P PTCA (percutaneous transluminal coronary angioplasty) (Chronic) HLD (hyperlipidemia) (Chronic) Ischemic cardiomyopathy (Chronic) Systolic CHF, chronic (Chronic) Atrial fibrillation (Chronic) AV Node RFA 07/11/2015 H/O atrioventricular chris ablation (Chronic ~07/11/15) Hospital Course and Treatment Imaging Results: 07/16/18 07:27 CT Lower [Extremity Lower without Contra] [CT] Urgent RAD/Chest 1 View (Portable) IMPRESSION: No acute chest disease. RAD/Foot min 3 Views IMPRESSION: Soft tissue swelling. No demonstrated active bone destruction. JOSEPHINE: Interpretation Summary Unable to calculate bilateral PT/DP ankle brachial indices secondary to elevated systolic pressures consistent with medial calcification of vessel monahan. Right digital index 0.5 and Biphasic DP/PT waveformes consistent with moderately severe occlusive disease. Left digital index 0.2 and monophasic DP/PT waveforms consistent with severe disease. CT/Extremity Lower without Contra IMPRESSION: 1. Mild soft tissue swelling extending from the distal lower leg through the foot to the base of the toes. There is a small plantar wound and a few gas bubbles in the underlying soft tissues between the bases of the third and fourth toes. 2. No CT sign of acute osteomyelitis in the area of the soft tissue wound. If clinical suspicion warrants additional imaging, three-phase bone scan or MRI may be useful. 3. Small areas of subcortical/subarticular lucency with some loss of cortical definition noted at the anteromedial paratracheal margin of the base of the first metatarsal, as well as the opposing inferomedial surfaces of the lateral cuneiform and base of the third metatarsal. These may be components of the mottled demineralization seen elsewhere in the foot, but osteomyelitis at these sites difficult to exclude. Again, three-phase bone scan or MRI may be useful for confirmation if clinically suspicious. Consultations 07/15/18 15:50 Consult: Onc/Wound/county surveyor Routine Comment: Poiatry - [place] Operations: None Procedures: None Summary of Care Provided: Hospital course: The patient is a 57 year old M with extensive past medical history as noted above who presented to the emergency room with a nonhealing wound to the left foot on the fourth digit. He follows with Dr. Samaniego for podiatry as an outpatient, however he had not seen his PCP or his ecclesiastical worker for this wound. It occurred about a week prior after he stepped on gravel. He had no history of prior cellulitis or MRSA infection. In the emergency room he had an elevated white count and the wound appeared grossly infected with some surrounding cellulitis. X-ray did not show signs of osteomyelitis. He was given vanc and Zosyn in the ER. He was admitted to the general medical floor. He was given IV Zosyn. He was seen by podiatry who felt that he would need seen by vascular surgery, possibly need a vascular intervention, and probably would need an amputation for the wound. He has a history of severe PAD. PVR study was obtained with results as above. CT of the foot was obtained with findings as above. The wound culture at this time is showing gram-negative rods and gram-positive organisms. The MRSA/MSSA screen is pending. In the past he was seen by Dr. Lino at the [facility]. He had vascular surgery-arterial bypass in 2003, there was a second intervention done in 2013. These were done in [place]. The patient developed a brief episode of chest pain the morning after admission. Troponin was negative, EKG was negative, and it did not recur. He had no events on telemetry. His credit collection associate was called. Cardiology felt that if the patient was going to require surgery that due to his complicated cardiac history it would not be appropriate to have this done here. The patient was agreeable to transfer. We first attempted to transfer to [facility] however there are no beds available, he was accepted at [facility]. He was discharged in stable condition under the care of Dr. Lori Mcnamara. This patient was seen by Delfin Kapoor PA-C under the supervision of Doctor Scott. [] - Physical Exam General: Alert, Oriented x3, Cooperative HEENT: Atraumatic, PERRLA, EOMI, Normocephalic Neck: Supple, No JVD, Negative Carotid Bruits Lungs: Clear to auscultation, Normal air movement Cardiovascular: Regular rate, No murmurs Abdomen: Bowel Sounds Present, Soft, Non Tender Extremities: No edema, Capillary Refill Less than 3 Seconds, - - Left fourth digit with open wound, sloughing, surrounding erythema. Cool to the touch. Some edema in the foot and leg. Right side with chronic venous changes Skin: No rashes, No breakdown Musculoskeletal: No Tenderness to Palpation of Joints or Extremities Neurological: Cranial nerves II-XII grossly intact Psych/Mental Status: Normal Affect, Appropriate, Alert and oriented to time, place, person, mood and affect Vital Signs Temp Pulse Resp BP Pulse Ox 99.2 F H 80 18 98/73 98 07/16/18 14:00 07/16/18 14:00 07/16/18 14:00 07/16/18 14:00 07/16/18 14:00 Oxygen Flow Rate (L/min) 2 Oxygen Delivery Method Room Air Weight: 202 lb 13.204 oz Body Mass Index (BMI) 34.8 Finger Stick Blood Glucose 87 Intake and Output for Last 24 Hours 07/14/18 07/15/18 07/16/18 23:59 23:59 23:59 Intake Total 973 / 973 1575 / 1575 Output Total 300 / 300 700 / 700 Balance 673 / 673 875 / 875 Microbiology Past 72 Hours 07/15/18 11:35 Gram Stain - Final Wound - Toe Wound Culture - Preliminary Gram negative cyn Gram positive organism Laboratory Tests Past 24 Hrs 07/15/18 07/16/18 07/16/18 22:00 05:36 05:36 WBC 10.5 RBC 4.00 L Hgb 11.6 L Hct 35.1 L MCV 87.8 MCH 29.0 MCHC 33.0 RDW 14.8 H RDW Differential 46.2 H Plt Count 153 MPV 10.3 Immature Gran % (Auto) 0.300 Neut % (Auto) 80.5 H Lymph % (Auto) 6.8 L [place] % (Auto) 12.0 H Eos % (Auto) 0.3 Baso % (Auto) 0.1 Absolute Neuts (auto) 8.4 H Absolute Lymphs (auto) 0.71 L Total Counted Not Reportable PT INR Sodium 134 L Potassium 4.1 Chloride 100 Carbon Dioxide 22.0 Anion Gap 12 BUN 29 H Creatinine 1.38 H Estim Creat Clear Calc 50.64 Est GFR (MDRD) Af Amer 69 Est GFR (MDRD) Non-Af 57 L BUN/Creatinine Ratio 21.0 H Glucose 176 H Calcium 8.0 L Troponin I Urine Color Yellow Urine Clarity Clear Urine pH 6.0 Ur Specific Pauline 1.015 Urine Protein Negative Urine Glucose (UA) 50 H Urine Ketones Negative Urine Occult Blood Negative Urine Nitrite Negative Urine Bilirubin Negative Urine Urobilinogen 1 H Ur Leukocyte Esterase Negative Urine RBC 0 SEEN Urine WBC 0 SEEN Ur Squamous Epith Cells 0 SEEN Urine Bacteria 0 SEEN Urine Mucus 0 SEEN 07/16/18 07/16/18 05:36 07:50 WBC RBC Hgb Hct MCV MCH MCHC RDW RDW Differential Plt Count MPV Immature Gran % (Auto) Neut % (Auto) Lymph % (Auto) [place] % (Auto) Eos % (Auto) Baso % (Auto) Absolute Neuts (auto) Absolute Lymphs (auto) Total Counted PT 29.4 H INR 2.8 Sodium Potassium Chloride Carbon Dioxide Anion Gap BUN Creatinine Estim Creat Clear Calc Est GFR (MDRD) Af Amer Est GFR (MDRD) Non-Af BUN/Creatinine Ratio Glucose Calcium Troponin I < 0.015 Urine Color Urine Clarity Urine pH Ur Specific Pauline Urine Protein Urine Glucose (UA) Urine Ketones Urine Occult Blood Urine Nitrite Urine Bilirubin Urine Urobilinogen Ur Leukocyte Esterase Urine RBC Urine WBC Ur Squamous Epith Cells Urine Bacteria Urine Mucus POC Glucose 07/16/18 07/16/18 07/15/18 11:37 06:33 21:25 POC Glucose 192 H 167 H 251 H 07/15/18 16:33 POC Glucose 104 Discharge Diet: - - As directed by receiving facility Discharge Activity: - - As directed by receiving facility Home Medications: Medications to take at Discharge Insulin Glargine,Hum.rec.anlog [Toujeo Solostar] 70 unit SQ QHS 08/16/16 gabapentin 300 mg capsule 300 mg PO BID cap 06/05/17 insulin aspart U- 100 100 unit/mL subcutaneous pen 16 unit SC TIDCM ml 06/08/17 potassium chloride ER 20 mEq tablet,extended release(part/cryst) 20 meq PO DAILY #30 tab 09/02/17 Atorvastatin Calcium [Lipitor] 40 mg PO QHS 09/07/17 Aspirin [Aspirin EC] 81 mg PO DAILY 05/12/18 Lisinopril [Zestril] 2.5 mg PO DAILY 05/12/18 Spironolactone 25 mg PO DAILY 05/12/18 clopidogrel 75 mg tablet 75 mg PO DAILY #30 tab 05/13/18 famotidine 40 mg tablet 40 mg PO DAILY #30 tab 05/13/18 Albuterol IH (ProAir) [Proair Hfa] 1 - 2 puff INHALATION Q4H PRN PRN #1 inhaler 05/19/18 carvedilol 3.125 mg tablet 3.125 mg PO BID #60 tab 06/09/18 warfarin 5 mg tablet 2.5 mg PO DAILY #0 tab 06/28/18 furosemide 80 mg tablet 80 mg PO BID #60 tab 07/07/18 Primary Care Physician: Allen Motta MD [Primary Care Provider] - Please follow up with your Primary Care Physician in: as directed Disposition: Acute care Hospital Minutes spent on discharge:: 45 Patient Condition:: Stable Medical Necessity - Tobacco Use Smoking Status: Former smoker Tobacco Use: Cigarettes, Chew Meaningful Use Info Meaningful Use Diagnoses (Choose all that apply): None applicable <Suresh Scott E - Last Filed: 07/17/18 12:32> Discharge Date and Diagnosis - Primary Discharge Diagnosis Active and Suspected Problems (Last Reviewed 02/04/18 @ 16:06 by Keven Willingham MD) Wound cellulitis (Acute) - Secondary Discharge Diagnosis Chronic Problems (Last Reviewed 02/04/18 @ 16:06 by Keven Willingham MD) CAD (coronary artery disease) (Chronic) Mural thrombus of cardiac apex (Chronic) 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) ICD (implantable cardioverter-defibrillator), biventricular, in situ (Chronic) Atherosclerosis of [place] coronary artery of [place] heart without angina pectoris (Chronic) PCI to LAD & diagonal in 2009; Diabetes mellitus (Chronic) Obesity (Chronic) Hypertension (Chronic) Benign prostatic hypertrophy (Chronic) COPD (chronic obstructive pulmonary disease) (Chronic) GERD (gastroesophageal reflux disease) (Chronic) [place] (obstructive sleep apnea) (Chronic) AICD (automatic cardioverter/defibrillator) present (Chronic) 12/2009 implant; PAD (peripheral artery disease) (Chronic) Pleural effusion, left (Chronic) S/P PTCA (percutaneous transluminal coronary angioplasty) (Chronic) HLD (hyperlipidemia) (Chronic) Ischemic cardiomyopathy (Chronic) Systolic CHF, chronic (Chronic) Atrial fibrillation (Chronic) AV Node RFA 07/11/2015 H/O atrioventricular chris ablation (Chronic ~07/11/15) Hospital Course and Treatment Imaging Results: 07/16/18 07:27 CT Lower [Extremity Lower without Contra] [CT] Urgent Consultations 07/15/18 15:50 Consult: Onc/Wound/county surveyor Routine Comment: Summary of Care Provided: Hospitalist note: Discharge summary above reviewed and I agree with above discharge and transfer plan. Patient admitted because of nonhealing wound of the left fourth toe which seemed to be infected with surrounding cellulitis. X-ray of the left foot did not show obvious signs of osteomyelitis. Patient was admitted, started on IV Zosyn and podiatry was consulted who recommended that the patient should be seen by vascular surgery for possible vascular intervention as patient has history of severe peripheral vascular disease. CT scan of the left foot revealed soft tissue swelling on the distal lower leg through the foot to the base of the toes, small plantar wound with gas bubble underlying soft tissue between the bases of the third and fourth toes, no CT evidence of acute osteomyelitis. Patient has history of vascular surgery intervention with arterial bypass back in 2003. He had a significant cardiac history as well and during this hospital stay, he developed chest pain for which EKG was done and it was negative. His troponin also was negative. Cardiology consulted and Dr. Willingham recommended to transfer the patient to a tertiary care center for vascular surgery evaluation as well as possible need for cardiology evaluation. Delfin Emelia made the arrangement for the patient to be transferred to [facility] for further evaluation and treatment by vascular surgery as well as podiatry medicine for history of severe peripheral echo disease and left foot cellulitis/infected wound of the left fourth toe with surrounding cellulitis. - Physical Exam General: Alert, Oriented x3, Cooperative, No apparent distress. HEENT: Atraumatic, PERRLA, EOMI. Neck: Supple, No JVD, Negative Carotid Bruits, Trachea Midline, Thyroid Normal. Lungs: Clear to auscultation, Normal air movement, No rhonchi, No wheeze, No rales. Cardiovascular: Regular rate, Regular Rhythm, Normal S1, Normal S2, PMI Normal. Abdomen: Bowel Sounds Present, Soft, Non Tender, Non-Distended, No Hepato-splenomegaly. Extremities: No clubbing, No cyanosis, No edema. Both legs are cold, peripheral pulses are very difficult to palpate. There was no evidence of acute ischemia. Skin: No rashes, No breakdown Neurological: Neuro grossly intact Vital Signs are stable. This note was generated with [employer] dictation software. It may contain incorrect words, spelling, and punctuation that were not noted in checking the note before signing. - Physical Exam Vital Signs Temp Pulse Resp BP Pulse Ox 99.2 F H 80 18 98/73 98 07/16/18 14:00 07/16/18 14:00 07/16/18 14:00 07/16/18 14:00 07/16/18 14:00 Oxygen Flow Rate (L/min) 2 Oxygen Delivery Method Room Air Weight: 202 lb 13.204 oz Body Mass Index (BMI) 34.8 Finger Stick Blood Glucose 87 Intake and Output for Last 24 Hours 07/14/18 07/15/18 07/16/18 23:59 23:59 23:59 Intake Total 973 / 973 1575 / 1575 Output Total 300 / 300 700 / 700 Balance 673 / 673 875 / 875 Microbiology Past 72 Hours 07/15/18 11:35 Gram Stain - Final Wound - Toe Wound Culture - Preliminary Gram negative cyn Gram positive organism Laboratory Tests Past 24 Hrs 07/15/18 07/16/18 07/16/18 22:00 05:36 05:36 WBC 10.5 RBC 4.00 L Hgb 11.6 L Hct 35.1 L MCV 87.8 MCH 29.0 MCHC 33.0 RDW 14.8 H RDW Differential 46.2 H Plt Count 153 MPV 10.3 Immature Gran % (Auto) 0.300 Neut % (Auto) 80.5 H Lymph % (Auto) 6.8 L [place] % (Auto) 12.0 H Eos % (Auto) 0.3 Baso % (Auto) 0.1 Absolute Neuts (auto) 8.4 H Absolute Lymphs (auto) 0.71 L Total Counted Not Reportable PT INR Sodium 134 L Potassium 4.1 Chloride 100 Carbon Dioxide 22.0 Anion Gap 12 BUN 29 H Creatinine 1.38 H Estim Creat Clear Calc 50.64 Est GFR (MDRD) Af Amer 69 Est GFR (MDRD) Non-Af 57 L BUN/Creatinine Ratio 21.0 H Glucose 176 H Calcium 8.0 L Troponin I Urine Color Yellow Urine Clarity Clear Urine pH 6.0 Ur Specific Pauline 1.015 Urine Protein Negative Urine Glucose (UA) 50 H Urine Ketones Negative Urine Occult Blood Negative Urine Nitrite Negative Urine Bilirubin Negative Urine Urobilinogen 1 H Ur Leukocyte Esterase Negative Urine RBC 0 SEEN Urine WBC 0 SEEN Ur Squamous Epith Cells 0 SEEN Urine Bacteria 0 SEEN Urine Mucus 0 SEEN 07/16/18 07/16/18 05:36 07:50 WBC RBC Hgb Hct MCV MCH MCHC RDW RDW Differential Plt Count MPV Immature Gran % (Auto) Neut % (Auto) Lymph % (Auto) [place] % (Auto) Eos % (Auto) Baso % (Auto) Absolute Neuts (auto) Absolute Lymphs (auto) Total Counted PT 29.4 H INR 2.8 Sodium Potassium Chloride Carbon Dioxide Anion Gap BUN Creatinine Estim Creat Clear Calc Est GFR (MDRD) Af Amer Est GFR (MDRD) Non-Af BUN/Creatinine Ratio Glucose Calcium Troponin I < 0.015 Urine Color Urine Clarity Urine pH Ur Specific [place]ine Urine Protein Urine Glucose (UA) Urine Ketones Urine Occult Blood Urine Nitrite Urine Bilirubin Urine Urobilinogen Ur Leukocyte Esterase Urine RBC Urine WBC Ur Squamous Epith Cells Urine Bacteria Urine Mucus POC Glucose 07/16/18 07/16/18 07/15/18 11:37 06:33 21:25 POC Glucose 192 H 167 H 251 H 07/15/18 16:33 POC Glucose 104 Disposition: [facility] Minutes spent on discharge:: 28 Patient Condition:: Stable Meaningful Use Info Meaningful Use Diagnoses (Choose all that apply): None applicable Code Visit Inpatient E&M: 11135 Disch Hosp
--- NOTE | 2018-07-16 15:03 | DS.PCM_ITS ---
<Delfin Kapoor - Last Filed: 07/16/18 14:54> Discharge Date and Diagnosis Date of Admission: 07/15/18 Date of Discharge: 07/16/18 - Primary Discharge Diagnosis Active and Suspected Problems (Last Reviewed 02/04/18 @ 16:06 by Keven Willingham MD) Nonhealing left foot fourth digit diabetic wound with gram-negative rods, gram- positive organisms Severe PAD CAD with prior stents Systolic congestive heart failure with ischemic cardiomyopathy History of mural thrombus AICD in place Biventricular pacemaker in place Chronic A. fib Type 2 diabetes Obesity Hypertension COPD Obstructive sleep apnea - Secondary Discharge Diagnosis Chronic Problems (Last Reviewed 02/04/18 @ 16:06 by Keven Willingham MD) CAD (coronary artery disease) (Chronic) Mural thrombus of cardiac apex (Chronic) [facility] 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 (Chronic) ICD (implantable cardioverter-defibrillator), biventricular, in situ (Chronic) Atherosclerosis of [place] coronary artery of [place] heart without angina pectoris (Chronic) PCI to LAD & diagonal in 2009; Diabetes mellitus (Chronic) Obesity (Chronic) Hypertension (Chronic) Benign prostatic hypertrophy (Chronic) COPD (chronic obstructive pulmonary disease) (Chronic) GERD (gastroesophageal reflux disease) (Chronic) JUAN [place]IEGO (obstructive sleep apnea) (Chronic) AICD (automatic cardioverter/defibrillator) present (Chronic) 12/2009 implant; PAD (peripheral artery disease) (Chronic) Pleural effusion, left (Chronic) S/P PTCA (percutaneous transluminal coronary angioplasty) (Chronic) HLD (hyperlipidemia) (Chronic) Ischemic cardiomyopathy (Chronic) Systolic CHF, chronic (Chronic) Atrial fibrillation (Chronic) AV Node RFA 07/11/2015 H/O atrioventricular chris ablation (Chronic ~07/11/15) Hospital Course and Treatment Imaging Results: 07/16/18 07:27 CT Lower [Extremity Lower without Contra] [CT] Urgent RAD/Chest 1 View (Portable) IMPRESSION: No acute chest disease. RAD/Foot min 3 Views IMPRESSION: Soft tissue swelling. No demonstrated active bone destruction. JOSEPHINE: Interpretation Summary Unable to calculate bilateral PT/DP ankle brachial indices secondary to elevated systolic pressures consistent with medial calcification of vessel monahan. Right digital index 0.5 and Biphasic DP/PT waveformes consistent with moderately severe occlusive disease. Left digital index 0.2 and monophasic DP/PT waveforms consistent with severe disease. CT/Extremity Lower without Contra IMPRESSION: 1. Mild soft tissue swelling extending from the distal lower leg through the foot to the base of the toes. There is a small plantar wound and a few gas bubbles in the underlying soft tissues between the bases of the third and fourth toes. 2. No CT sign of acute osteomyelitis in the area of the soft tissue wound. If clinical suspicion warrants additional imaging, three-phase bone scan or MRI may be useful. 3. Small areas of subcortical/subarticular lucency with some loss of cortical definition noted at the anteromedial paratracheal margin of the base of the first metatarsal, as well as the opposing inferomedial surfaces of the lateral cuneiform and base of the third metatarsal. These may be components of the mottled demineralization seen elsewhere in the foot, but osteomyelitis at these sites difficult to exclude. Again, three-phase bone scan or MRI may be useful for confirmation if clinically suspicious. Consultations 07/15/18 15:50 Consult: Onc/Wound/fibrous wallboard inspector Routine Comment: Poiatry - Danette Operations: None Procedures: None Summary of Care Provided: Hospital course: The patient is a 57 year old M with extensive past medical history as noted above who presented to the emergency room with a nonhealing wound to the left foot on the fourth digit. He follows with Dr. Samaniego for podiatry as an outpatient, however he had not seen his PCP or his instrument panel assembler for this wound. It occurred about a week prior after he stepped on gravel. He had no history of prior cellulitis or MRSA infection. In the emergency room he had an elevated white count and the wound appeared grossly infected with some surrounding cellulitis. X-ray did not show signs of osteomyelitis. He was given vanc and Zosyn in the ER. He was admitted to the general medical floor. He was given IV Zosyn. He was seen by podiatry who felt that he would need seen by vascular surgery, possibly need a vascular intervention, and probably would need an amputation for the wound. He has a history of severe PAD. PVR study was obtained with results as above. CT of the foot was obtained with findings as above. The wound culture at this time is showing gram-negative rods and gram- positive organisms. The MRSA/MSSA screen is pending. In the past he was seen by Dr. Lino at the [facility]. He had vascular surgery-arterial bypass in 2003, there was a second intervention done in 2013. These were done in [place]. The patient developed a brief episode of chest pain the morning after admission. Troponin was negative, EKG was negative, and it did not recur. He had no events on telemetry. His janitor helper was called. Cardiology felt that if the patient was going to require surgery that due to his complicated cardiac history it would not be appropriate to have this done here. The patient was agreeable to transfer. We first attempted to transfer to [facility] however there are no beds available, he was accepted at [facility]. He was discharged in stable condition under the care of Dr. Lori Mcnamara. This patient was seen by Delfin Kapoor PA-C under the supervision of Doctor Scott. [] - Physical Exam General: Alert, Oriented x3, Cooperative HEENT: Atraumatic, PERRLA, EOMI, Normocephalic Neck: Supple, No JVD, Negative Carotid Bruits Lungs: Clear to auscultation, Normal air movement Cardiovascular: Regular rate, No murmurs Abdomen: Bowel Sounds Present, Soft, Non Tender Extremities: No edema, Capillary Refill Less than 3 Seconds, - - Left fourth digit with open wound, sloughing, surrounding erythema. Cool to the touch. Some edema in the foot and leg. Right side with chronic venous changes Skin: No rashes, No breakdown Musculoskeletal: No Tenderness to Palpation of Joints or Extremities Neurological: Cranial nerves II-XII grossly intact Psych/Mental Status: Normal Affect, Appropriate, Alert and oriented to time, place, person, mood and affect Vital Signs Temp Pulse Resp BP Pulse Ox 99.2 F H 80 18 98/73 98 07/16/18 14:00 07/16/18 14:00 07/16/18 14:00 07/16/18 14:00 07/16/18 14:00 Oxygen Flow Rate (L/min) 2 Oxygen Delivery Method Room Air Weight: 202 lb 13.204 oz Body Mass Index (BMI) 34.8 Finger Stick Blood Glucose 87 Intake and Output for Last 24 Hours 07/14/18 07/15/18 07/16/18 23:59 23:59 23:59 Intake Total 973 / 973 1575 / 1575 Output Total 300 / 300 700 / 700 Balance 673 / 673 875 / 875 Microbiology Past 72 Hours 07/15/18 11:35 Gram Stain - Final Wound - Toe Wound Culture - Preliminary Gram negative cyn Gram positive organism Laboratory Tests Past 24 Hrs 07/15/18 07/16/18 07/16/18 22:00 05:36 05:36 WBC 10.5 RBC 4.00 L Hgb 11.6 L Hct 35.1 L MCV 87.8 MCH 29.0 MCHC 33.0 RDW 14.8 H RDW Differential 46.2 H Plt Count 153 MPV 10.3 Immature Gran % (Auto) 0.300 Neut % (Auto) 80.5 H Lymph % (Auto) 6.8 L Reynolds % (Auto) 12.0 H Eos % (Auto) 0.3 Baso % (Auto) 0.1 Absolute Neuts (auto) 8.4 H Absolute Lymphs (auto) 0.71 L Total Counted Not Reportable PT INR Sodium 134 L Potassium 4.1 Chloride 100 Carbon Dioxide 22.0 Anion Gap 12 BUN 29 H Creatinine 1.38 H Estim Creat Clear Calc 50.64 Est GFR (MDRD) Af Amer 69 Est GFR (MDRD) Non-Af 57 L BUN/Creatinine Ratio 21.0 H Glucose 176 H Calcium 8.0 L Troponin I Urine Color Yellow Urine Clarity Clear Urine pH 6.0 Ur Specific [place] 1.015 Urine Protein Negative Urine Glucose (UA) 50 H Urine Ketones Negative Urine Occult Blood Negative Urine Nitrite Negative Urine Bilirubin Negative Urine Urobilinogen 1 H Ur Leukocyte Esterase Negative Urine RBC 0 SEEN Urine WBC 0 SEEN Ur Squamous Epith Cells 0 SEEN Urine Bacteria 0 SEEN Urine Mucus 0 SEEN 07/16/18 07/16/18 05:36 07:50 WBC RBC Hgb Hct MCV MCH MCHC RDW RDW Differential Plt Count MPV Immature Gran % (Auto) Neut % (Auto) Lymph % (Auto) Reynolds % (Auto) Eos % (Auto) Baso % (Auto) Absolute Neuts (auto) Absolute Lymphs (auto) Total Counted PT 29.4 H INR 2.8 Sodium Potassium Chloride Carbon Dioxide Anion Gap BUN Creatinine Estim Creat Clear Calc Est GFR (MDRD) Af Amer Est GFR (MDRD) Non-Af BUN/Creatinine Ratio Glucose Calcium Troponin I < 0.015 Urine Color Urine Clarity Urine pH Ur Specific [place] Urine Protein Urine Glucose (UA) Urine Ketones Urine Occult Blood Urine Nitrite Urine Bilirubin Urine Urobilinogen Ur Leukocyte Esterase Urine RBC Urine WBC Ur Squamous Epith Cells Urine Bacteria Urine Mucus POC Glucose 07/16/18 07/16/18 07/15/18 11:37 06:33 21:25 POC Glucose 192 H 167 H 251 H 07/15/18 16:33 POC Glucose 104 Discharge Diet: - - As directed by receiving facility Discharge Activity: - - As directed by receiving facility Home Medications: Medications to take at Discharge Insulin Glargine,Hum.rec.anlog [Toujeo Solostar] 70 unit SQ QHS 08/16/16 gabapentin 300 mg capsule 300 mg PO BID cap 06/05/17 insulin aspart U- 100 100 unit/mL subcutaneous pen 16 unit SC TIDCM ml 06/08/17 potassium chloride ER 20 mEq tablet,extended release(part/cryst) 20 meq PO DAILY #30 tab 09/02/17 Atorvastatin Calcium [Lipitor] 40 mg PO QHS 09/07/17 Aspirin [Aspirin EC] 81 mg PO DAILY 05/12/18 Lisinopril [Zestril] 2.5 mg PO DAILY 05/12/18 Spironolactone 25 mg PO DAILY 05/12/18 clopidogrel 75 mg tablet 75 mg PO DAILY #30 tab 05/13/18 famotidine 40 mg tablet 40 mg PO DAILY #30 tab 05/13/18 Albuterol IH (ProAir) [Proair Hfa] 1 - 2 puff INHALATION Q4H PRN PRN #1 inhaler 05/19/18 carvedilol 3.125 mg tablet 3.125 mg PO BID #60 tab 06/09/18 warfarin 5 mg tablet 2.5 mg PO DAILY #0 tab 06/28/18 furosemide 80 mg tablet 80 mg PO BID #60 tab 07/07/18 Primary Care Physician: Allen Motta MD [Primary Care Provider] - Please follow up with your Primary Care Physician in: as directed Disposition: Acute care Hospital Minutes spent on discharge:: 45 Patient Condition:: Stable Medical Necessity - Tobacco Use Smoking Status: Former smoker Tobacco Use: Cigarettes, Chew Meaningful Use Info Meaningful Use Diagnoses (Choose all that apply): None applicable <Suresh Scott E - Last Filed: 07/17/18 12:32> Discharge Date and Diagnosis - Primary Discharge Diagnosis Active and Suspected Problems (Last Reviewed 02/04/18 @ 16:06 by Keven Willingham MD) Wound cellulitis (Acute) - Secondary Discharge Diagnosis Chronic Problems (Last Reviewed 02/04/18 @ 16:06 by Keven Willingham MD) CAD (coronary artery disease) (Chronic) Mural thrombus of cardiac apex (Chronic) long term care social worker 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 (Chronic) ICD (implantable cardioverter-defibrillator), biventricular, in situ (Chronic) Atherosclerosis of [place] coronary artery of [place] heart without angina pectoris (Chronic) PCI to LAD & diagonal in 2009; Diabetes mellitus (Chronic) Obesity (Chronic) Hypertension (Chronic) Benign prostatic hypertrophy (Chronic) COPD (chronic obstructive pulmonary disease) (Chronic) GERD (gastroesophageal reflux disease) (Chronic) [place] (obstructive sleep apnea) (Chronic) AICD (automatic cardioverter/defibrillator) present (Chronic) 12/2009 implant; PAD (peripheral artery disease) (Chronic) Pleural effusion, left (Chronic) S/P PTCA (percutaneous transluminal coronary angioplasty) (Chronic) HLD (hyperlipidemia) (Chronic) Ischemic cardiomyopathy (Chronic) Systolic CHF, chronic (Chronic) Atrial fibrillation (Chronic) AV Node RFA 07/11/2015 H/O atrioventricular chris ablation (Chronic ~07/11/15) Hospital Course and Treatment Imaging Results: 07/16/18 07:27 CT Lower [Extremity Lower without Contra] [CT] Urgent Consultations 07/15/18 15:50 Consult: Onc/Wound/fibrous wallboard inspector Routine Comment: Summary of Care Provided: Hospitalist note: Discharge summary above reviewed and I agree with above discharge and transfer plan. Patient admitted because of nonhealing wound of the left fourth toe which seemed to be infected with surrounding cellulitis. X-ray of the left foot did not show obvious signs of osteomyelitis. Patient was admitted, started on IV Zosyn and podiatry was consulted who recommended that the patient should be seen by vascular surgery for possible vascular intervention as patient has history of severe peripheral vascular disease. CT scan of the left foot revealed soft tissue swelling on the distal lower leg through the foot to the base of the toes, small plantar wound with gas bubble underlying soft tissue between the bases of the third and fourth toes, no CT evidence of acute osteomyelitis. Patient has history of vascular surgery intervention with arterial bypass back in 2003. He had a significant cardiac history as well and during this hospital stay, he developed chest pain for which EKG was done and it was negative. His troponin also was negative. Cardiology consulted and Dr. Willingham recommended to t ransfer the patient to a tertiary care center for vascular surgery evaluation as well as possible need for cardiology evaluation. Delfinoma Kapoor made the arrangement for the patient to be transferred to [facility] for further evaluation and treatment by vascular surgery as well as podiatry medicine for history of severe peripheral echo disease and left foot cellulitis/infected wound of the left fourth toe with surrounding cellulitis. - Physical Exam General: Alert, Oriented x3, Cooperative, No apparent distress. HEENT: Atraumatic, PERRLA, EOMI. Neck: Supple, No JVD, Negative Carotid Bruits, Trachea Midline, Thyroid Normal. Lungs: Clear to auscultation, Normal air movement, No rhonchi, No wheeze, No rales. Cardiovascular: Regular rate, Regular Rhythm, Normal S1, Normal S2, PMI Normal. Abdomen: Bowel Sounds Present, Soft, Non Tender, Non-Distended, No Hepato- splenomegaly. Extremities: No clubbing, No cyanosis, No edema. Both legs are cold, peripheral pulses are very difficult to palpate. There was no evidence of acute ischemia. Skin: No rashes, No breakdown Neurological: Neuro grossly intact Vital Signs are stable. This note was generated with [employer]finest[employer] dictation software. It may contain incorrect words, spelling, and punctuation that were not noted in checking the note before signing. - Physical Exam Vital Signs Temp Pulse Resp BP Pulse Ox 99.2 F H 80 18 98/73 98 07/16/18 14:00 07/16/18 14:00 07/16/18 14:00 07/16/18 14:00 07/16/18 14:00 Oxygen Flow Rate (L/min) 2 Oxygen Delivery Method Room Air Weight: 202 lb 13.204 oz Body Mass Index (BMI) 34.8 Finger Stick Blood Glucose 87 Intake and Output for Last 24 Hours 07/14/18 07/15/18 07/16/18 23:59 23:59 23:59 Intake Total 973 / 973 1575 / 1575 Output Total 300 / 300 700 / 700 Balance 673 / 673 875 / 875 Microbiology Past 72 Hours 07/15/18 11:35 Gram Stain - Final Wound - Toe Wound Culture - Preliminary Gram negative cyn Gram positive organism Laboratory Tests Past 24 Hrs 07/15/18 07/16/18 07/16/18 22:00 05:36 05:36 WBC 10.5 RBC 4.00 L Hgb 11.6 L Hct 35.1 L MCV 87.8 MCH 29.0 MCHC 33.0 RDW 14.8 H RDW Differential 46.2 H Plt Count 153 MPV 10.3 Immature Gran % (Auto) 0.300 Neut % (Auto) 80.5 H Lymph % (Auto) 6.8 L Reynolds % (Auto) 12.0 H Eos % (Auto) 0.3 Baso % (Auto) 0.1 Absolute Neuts (auto) 8.4 H Absolute Lymphs (auto) 0.71 L Total Counted Not Reportable PT INR Sodium 134 L Potassium 4.1 Chloride 100 Carbon Dioxide 22.0 Anion Gap 12 BUN 29 H Creatinine 1.38 H Estim Creat Clear Calc 50.64 Est GFR (MDRD) Af Amer 69 Est GFR (MDRD) Non-Af 57 L BUN/Creatinine Ratio 21.0 H Glucose 176 H Calcium 8.0 L Troponin I Urine Color Yellow Urine Clarity Clear Urine pH 6.0 Ur Specific [place] 1.015 Urine Protein Negative Urine Glucose (UA) 50 H Urine Ketones Negative Urine Occult Blood Negative Urine Nitrite Negative Urine Bilirubin Negative Urine Urobilinogen 1 H Ur Leukocyte Esterase Negative Urine RBC 0 SEEN Urine WBC 0 SEEN Ur Squamous Epith Cells 0 SEEN Urine Bacteria 0 SEEN Urine Mucus 0 SEEN 07/16/18 07/16/18 05:36 07:50 WBC RBC Hgb Hct MCV MCH MCHC RDW RDW Differential Plt Count MPV Immature Gran % (Auto) Neut % (Auto) Lymph % (Auto) Reynolds % (Auto) Eos % (Auto) Baso % (Auto) Absolute Neuts (auto) Absolute Lymphs (auto) Total Counted PT 29.4 H INR 2.8 Sodium Potassium Chloride Carbon Dioxide Anion Gap BUN Creatinine Estim Creat Clear Calc Est GFR (MDRD) Af Amer Est GFR (MDRD) Non-Af BUN/Creatinine Ratio Glucose Calcium Troponin I < 0.015 Urine Color Urine Clarity Urine pH Ur Specific [place] Urine Protein Urine Glucose (UA) Urine Ketones Urine Occult Blood Urine Nitrite Urine Bilirubin Urine Urobilinogen Ur Leukocyte Esterase Urine RBC Urine WBC Ur Squamous Epith Cells Urine Bacteria Urine Mucus POC Glucose 07/16/18 07/16/18 07/15/18 11:37 06:33 21:25 POC Glucose 192 H 167 H 251 H 07/15/18 16:33 POC Glucose 104 Disposition: [facility] Minutes spent on discharge:: 28 Patient Condition:: Stable Meaningful Use Info Meaningful Use Diagnoses (Choose all that apply): None applicable Code Visit Inpatient E&M: 52530 Disch Hosp
--- NOTE | 2018-07-16 15:09 | NURSING ---
REPORT CALLED TO JOAN @ [facility]
[2018-07-16 17:35] LABS: Bedside Glucose 73 mg/dL (70-110)
--- NOTE | 2018-07-16 20:04 | NURSING ---
[facility] just picked pt up for transfer to [facility].
== END 2018-07-16 20:03 | disposition short-term general hospital (02) | DRG 300 ==
LOC: ED 14:12 → MS3 15:20
PROVIDERS: Physician Assistant; Admitting Provider Family Medicine; Emergency Provider Emergency Medicine; Family Provider Family Medicine; PCP Family Medicine; Visit Provider Hospitalist
DX: E11.52 Type 2 diabetes mellitus with diabetic peripheral angiopathy with gangrene (principal); L03.116 Cellulitis of left lower limb; I50.22 Chronic systolic (congestive) heart failure; I96 Gangrene, not elsewhere classified; E11.621 Type 2 diabetes mellitus with foot ulcer; L97.529 Non-pressure chronic ulcer of other part of left foot with unspecified severity; S91.105A Unspecified open wound of left lesser toe(s) without damage to nail, initial encounter; L03.032 Cellulitis of left toe; B96.89 Other specified bacterial agents as the cause of diseases classified elsewhere; X58.XXXA Exposure to other specified factors, initial encounter; I25.10 Atherosclerotic heart disease of native coronary artery without angina pectoris; K21.9 Gastro-esophageal reflux disease without esophagitis; I48.91 Unspecified atrial fibrillation; E78.5 Hyperlipidemia, unspecified; I25.5 Ischemic cardiomyopathy; I11.0 Hypertensive heart disease with heart failure; G47.33 Obstructive sleep apnea (adult) (pediatric); E66.9 Obesity, unspecified; Z79.4 Long term (current) use of insulin; Z79.899 Other long term (current) drug therapy; Z95.810 Presence of automatic (implantable) cardiac defibrillator; Z87.891 Personal history of nicotine dependence; Z79.01 Long term (current) use of anticoagulants; Z68.34 Body mass index [BMI] 34.0-34.9, adult; N40.0 Benign prostatic hyperplasia without lower urinary tract symptoms; Z95.5 Presence of coronary angioplasty implant and graft
CPT/HCPCS: 36415; 71045; 73630; 73700; 80048; 81001; 82962; 83880; 84484; 85025; 85610; 87040; 87070; 87077; 87081; 87186; 87205; 93005; 93922; 97802; 99284; J7030; J7040; A4216; J2405

== ENCOUNTER 2018-08-09 15:03 | Emergency (ER) | payer MEDICARE, SELFPAY ==
[2018-07-15 16:05] VITALS: BMI 34.8
[2018-08-09 15:04] VITALS: BP 85/66; PULSE 80; RESP 14; TEMP 37; O2SAT 99; BMI 34.0
[2018-08-09 15:09] VITALS: BP 81/66; PULSE 80; RESP 16; O2SAT 98
--- NOTE | 2018-08-09 15:32 | ED.VISSUMM ---
- ER Visit Summary Date of Service: 08/09/18 Chief Complaint: Fall History of Present Illness: The patient is a 57 M presenting after fall. Patient states he tripped on his boots and fell. He had femoral bypass 2 weeks ago at [facility]. The incision opened. EMS was called. He denies other injuries. He is on Coumadin. Physical Examination: Blood pressure 81/66. Heart rate 80. Patient is afebrile. Alert no acute distress. HEENT exam is unremarkable. Neck is supple. Lungs are clear and equal bilaterally. Heart is regular rate and rhythm. Abdomen is soft nontender nondistended. Extremities left lower extremity incision is dehisced 12 cm x 2.5 cm. Normal distal pulse. Skin is warm and dry. No focal neurologic deficit. Remainder of exam is unremarkable. Emergency Department Course and Treatment: Patient was given IV fluids. Repeat blood pressure 89/68. Patient states his systolic blood pressure runs in the low 90s. Discussed with [facility] for transfer. Disposition: Transfer Impression: Wound dehiscence This note was generated with [employer] dictation software. It may contain incorrect words, spelling, and punctuation that were not noted in review of the chart prior to signing ED Disposition - Plan for ED Patient: Referrals: Allen Motta MD [NON-STAFF] -
--- NOTE | 2018-08-09 15:35 | ED.DCSUM_ITS ---
- ER Visit Summary Date of Service: 08/09/18 Chief Complaint: Fall History of Present Illness: The patient is a 57 M presenting after fall. Patient states he tripped on his boots and fell. He had femoral bypass 2 weeks ago at [facility]. The incision opened. EMS was called. He denies other injuries. He is on Coumadin. Physical Examination: Blood pressure 81/66. Heart rate 80. Patient is afebrile. Alert no acute distress. HEENT exam is unremarkable. Neck is supple. Lungs are clear and equal bilaterally. Heart is regular rate and rhythm. Abdomen is soft nontender nondistended. Extremities left lower extremity incision is dehisced 12 cm x 2.5 cm. Normal distal pulse. Skin is warm and dry. No focal neurologic deficit. Remainder of exam is unremarkable. Emergency Department Course and Treatment: Patient was given IV fluids. Repeat blood pressure 89/68. Patient states his systolic blood pressure runs in the low 90s. Discussed with [facility] for transfer. Disposition: Transfer Impression: Wound dehiscence This note was generated with [employer] dictation software. It may contain incorrect words, spelling, and punctuation that were not noted in review of the chart prior to signing ED Disposition - Plan for ED Patient: Referrals: Allen Motta MD [NON-STAFF] -
[2018-08-09] MEDS: 0.9% Normal Saline 1,000 ML 1000 ML IV (15:36)
[2018-08-09 15:45] LABS: Absolute Lymphocyte Count 0.77 X10^3/ul (0.83-4.51); Basophil# 0.04 X10^3/uL; Basophil% 0.7 % (0-1); Eosinophil# 0.16 X10^3/uL; Eosinophils% 2.8 % (0-5); Hematocrit 33.2 % (40-54); Hemoglobin 10.2 g/dl (13.0-16.5); Lymphocyte # 0.77 X10^3/ul (4.0); Lymphocyte % 13.6 % (19-41); Mean Corp Hgb Conc 30.7 g/gl (32-36); Mean Corpuscular Hgb 27.9 pg (27.0-32.0); Monocyte# 0.62 X10^3/uL; Neutrophil # 4.04 X10^3/uL (2.7-7.7); Neutrophil % 71.4 % (47-70); Platelet Count 211 K/mm3 (150-450); RBC Distribution Width CV 16.1 % (11.6-14.6); RBC Distribution Width SD 52.3 fl (35.1-43.9); Red Blood Count 3.65 M/mm3 (4.6-6.2); White Blood Count 5.7 K/mm3 (4.4-11.0)
[2018-08-09 15:52] LABS: POSITIVE COUNT NO; POSITIVE DIFFERENTIAL NO; POSITIVE MORPHOLOGY NO
[2018-08-09 15:55] LABS: Anion Gap 3 (5-15); BUN 45 mg/dL (7-18); BUN/Creat Ratio 23.9 RATIO (10-20); Calcium,Total 8.2 mg/dL (8.5-10.1); Chloride 104 mmol/L (98-107); Creatinine, Serum 1.88 mg/dL (0.70-1.30); EST Glomerular Filtration Rate 40 mL/min (>60); Est Glom Filt Rate - Afr Amer 48 mL/min (>60); Estimated Creatinine Clearance 37.17 ml/min; Glucose 78 mg/dL (74-106); Potassium 4.1 mmol/L (3.5-5.1); Sodium Level 136 mmol/L (136-145)
--- NOTE | 2018-08-09 15:56 | NURSING ---
CALLED [facility] FOR TRANSPORT
[2018-08-09 15:57] LABS: International Normalized Ratio 2.9; Prothrombin Time (Protime)PT. 30.7 SECONDS (11.7-14.9)
[2018-08-09] MEDS: fentaNYL 100 MCG/2 ML Ampul 50 MCG IV (16:12)
[2018-08-09 16:13] VITALS: BP 91/61; BP 91/69; PULSE 80; RESP 13; RESP 14; TEMP 36.6; O2SAT 100
--- NOTE | 2018-08-09 16:32 | ED.RN ---
trauma dressing applied to left lower leg after ED physician assessment.
--- NOTE | 2018-08-09 16:32 | ED.RN ---
Bedside report given to transport. Denies questions. Assisted in transferring pt to their cot. Pt's dressing remains clean and dry on departure. Pt alert and oriented on departure at 1633.
== END 2018-08-09 16:33 | disposition home or self-care (01) ==
PROVIDERS: Emergency Provider Emergency Medicine; Family Provider Family Medicine; PCP Family Medicine
DX: T81.30XA Disruption of wound, unspecified, initial encounter (principal); Y83.8 Other surgical procedures as the cause of abnormal reaction of the patient, or of later complication, without mention of misadventure at the time of the procedure; Y92.9 Unspecified place or not applicable; Z79.01 Long term (current) use of anticoagulants; I25.10 Atherosclerotic heart disease of native coronary artery without angina pectoris; I50.9 Heart failure, unspecified; J44.9 Chronic obstructive pulmonary disease, unspecified; K21.9 Gastro-esophageal reflux disease without esophagitis; E11.9 Type 2 diabetes mellitus without complications; I10 Essential (primary) hypertension; E78.00 Pure hypercholesterolemia, unspecified; I48.91 Unspecified atrial fibrillation
CPT/HCPCS: 80048; 85025; 85610; 96361; 96374; 99285; J7030; A4216

== ENCOUNTER 2018-09-06 12:07 | Observation (INO) | payer MEDICARE, SELFPAY ==
[2018-09-03 11:26] VITALS: BMI 34.0
[2018-09-06] VITALS (10 sets, daily range): BP systolic 92–100; BP diastolic 62–73; PULSE 80–81; RESP 16–20; TEMP 36.4–37.1; O2SAT 91–100; BMI 42.4; BMI 38.9; BMI 39.0
--- NOTE | 2018-09-06 12:32 | RAD_ITS ---
STUDY: X-RAY CHEST REASON FOR EXAM: Male, 57 years old. Shortness of breath. Lethargy. TECHNIQUE: Single AP portable view of the chest. COMPARISON: Comparison is made with prior study dated July 15, 2018. FINDINGS: EKG electrodes are seen. Mild degree of increased interstitial markings as well as vascular congestion suggestive of mild degree of CHF. Increased markings at the lung bases worse on the left side suggestive of superimposed bibasilar atelectasis and/or early infiltrates. There is mild cardiac enlargement. A right-sided 3-lead AICD is seen. Normal mediastinum and katrina. Normal visualized pulmonary arteries. Normal visualized aortic arch and descending thoracic aorta. Normal visualized thoracic spine. Normal visualized ribs, clavicles, and shoulders. There is no demonstrated abnormality of the visualized soft tissue structures of the upper abdomen. RAD/Chest 1 View (Portable) IMPRESSION: Findings suggestive of a mild degree of CHF with bibasilar atelectasis and/or early infiltrates worse on the left side. Electronically Signed: Mann Prater, at 13:32 EDT , Service support ,
[2018-09-06 13:06] LABS: Absolute Lymphocyte Count 0.86 X10^3/ul (0.83-4.51); Absolute Neutrophil Count 4.9 X10^3/uL (2.0-7.7); Basophil# 0.02 X10^3/uL; Basophil% 0.3 % (0-1); Eosinophils% 1.4 % (0-5); Hematocrit 32.1 % (40-54); Hemoglobin 9.8 g/dl (13.0-16.5); Lymphocyte # 0.86 X10^3/ul (4.0); Lymphocyte % 12.2 % (19-41); Mean Corp Hgb Conc 30.5 g/gl (32-36); Mean Corpuscular Hgb 25.5 pg (27.0-32.0); Mean Corpuscular Volume 83.6 fL (80-94); Monocyte# 1.11 X10^3/uL; Monocyte% 15.8 % (0-10); Neutrophil # 4.93 X10^3/uL (2.7-7.7); Neutrophil % 70.2 % (47-70); Platelet Count 185 K/mm3 (150-450); RBC Distribution Width CV 15.8 % (11.6-14.6); RBC Distribution Width SD 48.2 fl (35.1-43.9); Red Blood Count 3.84 M/mm3 (4.6-6.2)
[2018-09-06 13:08] LABS: POSITIVE COUNT NO; POSITIVE DIFFERENTIAL NO; POSITIVE MORPHOLOGY NO
[2018-09-06 13:11] LABS: International Normalized Ratio 3.4; Prothrombin Time (Protime)PT. 34.2 SECONDS (11.7-14.9)
[2018-09-06 13:12] LABS: Partial Thromboplast Time 40.2 Seconds (24.1-36.2)
[2018-09-06 13:12] LABS: Bacteria 0 SEEN /hpf (None Seen); Mucous, Urine 0 SEEN /hpf (<or=2+); Red Blood Cells-Urine 0 SEEN /hpf (0-5); White Blood Cells 0 SEEN /hpf (0-5)
[2018-09-06 13:20] LABS: AST(SGOT) 20 U/L (15-37); Alanine Aminotransfer ALT/SGPT 28 U/L (16-61); Albumin, Serum 3.1 g/dL (3.2-5.0); Alkaline Phosphatase 288 U/L (45-117); Anion Gap 6 (5-15); BUN 45 mg/dL (7-18); BUN/Creat Ratio 29.4 RATIO (10-20); Bilirubin, Direct 0.51 mg/dL (0.00-0.30); Chloride 105 mmol/L (98-107); Creatinine, Serum 1.53 mg/dL (0.70-1.30); EST Glomerular Filtration Rate 50 mL/min (>60); Est Glom Filt Rate - Afr Amer 61 mL/min (>60); Estimated Creatinine Clearance 45.68 ml/min; Globulin 3.6 g/dL (2.2-4.2); Glucose 120 mg/dL (74-106); Potassium 3.7 mmol/L (3.5-5.1); Protein, Total 6.7 g/dL (6.4-8.2); Sodium Level 139 mmol/L (136-145)
[2018-09-06 13:22] LABS: Color, Urine Yellow (Yellow); Glucose, Dipstick Normal (Normal); Ketone-Dipstick Negative (Negative); Leukocyte Esterase-Dipstick Negative /ul (Negative); Nitrite-Dipstick Negative (Negative); Occult Blood-Urine Negative /ul (Negative); Protein-Dipstick Negative (Negative); Urine Bilirubin Dipstick Negative (Negative); Urine Clarity Sl. Cloudy (Clear); Urine Urobilinogen Normal (Normal); Urine pH 6.5 (5.0 - 8.0)
[2018-09-06 13:24] LABS: Squamous Epithelial Cells - UA 0-5 SEEN /hpf (0-5)
[2018-09-06 13:32] LABS: BNP,B-Type NATRIURETIC PEPTIDE 462.8 pg/mL (0-100)
--- NOTE | 2018-09-06 13:51 | ED.VISSUMM ---
- ER Visit Summary Date of Service: 09/06/18 Chief Complaint: Hypotension History of Present Illness: The patient is a 57 M who states that he feels full of fluid. He states that he cannot breathe and that he is very lethargic. He is from [facility] and was seen by nurse practitioner today. Noted to be lethargic and hypotensive. He had difficulty palpating a pulse. He had what sounds like a vascular surgery on his leg that ended up dehiscing. And this is how he ended up at [place]. They are currently packing the wound. Patient has a ischemic cardiomyopathy last ejection fraction in July was 30%. 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 At that point it was noted he was complaining of chest heaviness and shortness of breath for a couple weeks. It was improved with sitting up and worse with laying down. Also noted to have weight gain. Physical Examination: Blood pressure 100/68 heart rate of 80 respirations are 20 pulse ox is 97% on room air Gen: Well-nourished well-developed Head: Normocephalic atraumatic Eyes: Perrl EOMI ENT: TMs clear no rhinorrhea moist mucous membranes Neck: Supple no lymphadenopathy no JVD nontender CVS: Regular rate rhythm no murmurs normal S1-S2 Respiratory: No distress scattered rails chest nontender Abdomen: Soft nontender nondistended normal bowel sounds no masses Back: Nontender Extremity: Wound on the left leg. There is pitting edema up to the waist bilaterally. Skin: Normal color no rash Neuro:CN II-XII intact normal strength sensation reflexes lethargic Psych: Flat blunted affect Test Results: White blood cell count 7. Hemoglobin 9.8. BUN 45 the creatinine 1.53. Nitric peptide 462. Troponin negative. Chest x-ray showed mild CHF. Emergency Department Course and Treatment: Patient is in a paced rhythm. His blood pressures have been generally in the 90/60 range. He certainly has a degree of CHF more right-sided. I think it would be very difficult for him to be diuresed as an outpatient. I like to bring him into the hospital for further care management Impression: 1. Congestive heart failure This note was generated with [employer] software. It may contain incorrect words, spelling, and punctuation that were not noted in review of the chart prior to signing ED Disposition - Plan for ED Patient: Referrals: Osei Ely MD [Primary Care Provider] -
--- NOTE | 2018-09-06 13:54 | ED.DCSUM_ITS ---
- ER Visit Summary Date of Service: 09/06/18 Chief Complaint: Hypotension History of Present Illness: The patient is a 57 M who states that he feels full of fluid. He states that he cannot breathe and that he is very lethargic. He is from [facility] and was seen by nurse practitioner today. Noted to be lethargic and hypotensive. He had difficulty palpating a pulse. He had what sounds like a vascular surgery on his leg that ended up dehiscing. And this is how he ended up at [facility]. They are currently packing the wound. Patient has a ischemic cardiomyopathy last ejection fraction in July was 30%. 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 At that point it was noted he was complaining of chest heaviness and shortness of breath for a couple weeks. It was improved with sitting up and worse with laying down. Also noted to have weight gain. Physical Examination: Blood pressure 100/68 heart rate of 80 respirations are 20 pulse ox is 97% on room air Gen: Well-nourished well-developed Head: Normocephalic atraumatic Eyes: Perrl EOMI ENT: TMs clear no rhinorrhea moist mucous membranes Neck: Supple no lymphadenopathy no JVD nontender CVS: Regular rate rhythm no murmurs normal S1-S2 Respiratory: No distress scattered rails chest nontender Abdomen: Soft nontender nondistended normal bowel sounds no masses Back: Nontender Extremity: Wound on the left leg. There is pitting edema up to the waist bilaterally. Skin: Normal color no rash Neuro:CN II-XII intact normal strength sensation reflexes lethargic Psych: Flat blunted affect Test Results: White blood cell count 7. Hemoglobin 9.8. BUN 45 the creatinine 1.53. Nitric peptide 462. Troponin negative. Chest x-ray showed mild CHF. Emergency Department Course and Treatment: Patient is in a paced rhythm. His blood pressures have been generally in the 90/60 range. He certainly has a degree of CHF more right-sided. I think it would be very difficult for him to be diuresed as an outpatient. I like to bring him into the hospital for further care management Impression: 1. Congestive heart failure This note was generated with [employer] software. It may contain incorrect words, spelling, and punctuation that were not noted in review of the chart prior to signing ED Disposition - Plan for ED Patient: Referrals: Osei Ely MD [Primary Care Provider] -
[2018-09-06] MEDS: Furosemide 20 MG/2 ML VIAL IV ×2 (14:17→16:59)
--- NOTE | 2018-09-06 14:17 | HP.PCM_ITS ---
Problem List (1) Altered mental status Status: Acute (2) CAD (coronary artery disease) Status: Chronic (3) ICD (implantable cardioverter-defibrillator), biventricular, in situ Status: Chronic (4) Diabetes mellitus Status: Chronic Qualifiers: Diabetes mellitus type: type 2 Diabetes mellitus prison insulin use: with emt intermediate use Diabetes mellitus complication status: with unspecified complications Qualified Code(s): E11.8 - Type 2 diabetes mellitus with unspecified complications; Z79.4 - senior living (current) use of insulin (5) Obesity Status: Chronic Qualifiers: Obesity type: unspecified obesity type Body mass index: unspecified BMI (6) Hypertension Status: Chronic Qualifiers: Hypertension type: essential hypertension Qualified Code(s): I10 - Essential (primary) hypertension (7) Benign prostatic hypertrophy Status: Chronic (8) COPD (chronic obstructive pulmonary disease) Status: Chronic Qualifiers: Emphysema type: unspecified (9) GERD (gastroesophageal reflux disease) Status: Chronic Qualifiers: Esophagitis presence: esophagitis presence not specified Qualified Code(s): K21.9 - Gastro-esophageal reflux disease without esophagitis (10) PAD (peripheral artery disease) Status: Chronic (11) HLD (hyperlipidemia) Status: Chronic Qualifiers: Hyperlipidemia type: unspecified Qualified Code(s): E78.5 - Hyperlipidemia, unspecified (12) Ischemic cardiomyopathy Status: Chronic History of Present Illness Date of Admission: 09/06/18 Chief Complaint: Altered mental status, hypotension - 1 day The patient is a 57 year old M with past medical history of type II DM, CAD status post previous stents (to LAD and proximal diagonal vessel in 2009), with ischemic cardiomyopathy, EF 30%, PAD s/p recent bypass surgery, status post ICD, chronic atrial fibrillation s/p ablation was recently seen in the cardiology office on 09/03/18, resident in [facility] comes in with complaints of lethargy and worsening lower extremity edema. Patient is reported to have been developing worsening lower extremity edema, he recently had his Lasix increased to 40 mg twice a day with his lisinopril being held on account of low blood pressure readings. Patient was also found to be increasingly lethargic and called to arouse. Vitals in the ED showed blood pressure 100/68, temperature of 90 8.8F, heart rate of 80, respiratory rate of 20, SPO2 97% on room air. His admitting blood work showed WBC count of 7.0, hemoglobin 9.8, platelet 185, INR 3.4, sodium 139, potassium 3.7, chloride 105, bicarbonate 28, BUN 45, creatinine 1.53. His creatinine was 1.88. His total bilirubin is 1.20, direct bilirubin 0.51, AST is 20, ALT is 28, ALP is 288, albumin is 3.1, BN pep is 462.8, troponin 0 0.015. Admitting EKG shows paced rhythm, no acute ST changes, unchanged from previous Chest x-ray shows CHF with bibasilar atelectasis. Past Medical History Past Medical History (Chronic Problems): Chronic Problems (Last Reviewed 02/04/18 @ 16:06 by Keven Willingham MD) CAD (coronary artery disease) (Chronic) Mural thrombus of cardiac apex (Chronic) senior living 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 (Chronic) ICD (implantable cardioverter-defibrillator), biventricular, in situ (Chronic) Atherosclerosis of [place] coronary artery of [place] heart without angina pectoris (Chronic) PCI to LAD & diagonal in 2009; Diabetes mellitus (Chronic) Obesity (Chronic) Hypertension (Chronic) Benign prostatic hypertrophy (Chronic) COPD (chronic obstructive pulmonary disease) (Chronic) GERD (gastroesophageal reflux disease) (Chronic) [place] (obstructive sleep apnea) (Chronic) AICD (automatic cardioverter/defibrillator) present (Chronic) 12/2009 implant; PAD (peripheral artery disease) (Chronic) Pleural effusion, left (Chronic) S/P PTCA (percutaneous transluminal coronary angioplasty) (Chronic) HLD (hyperlipidemia) (Chronic) Ischemic cardiomyopathy (Chronic) Systolic CHF, chronic (Chronic) Atrial fibrillation (Chronic) AV Node RFA 07/11/2015 H/O atrioventricular chris ablation (Chronic ~07/11/15) Medical History: Medical History (Last Updated 07/17/18 @ 12:27 by Suresh Scott MD) Mural thrombus of cardiac apex (Chronic) I51.3 senior living 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 (Chronic) Z79.01 ICD (implantable cardioverter-defibrillator), biventricular, in situ (Chronic) Z95.810 Atherosclerosis of [place] coronary artery of [place] heart without angina pectoris (Chronic) I25.10 PCI to LAD & diagonal in 2009; Diabetes mellitus (Chronic) E11.9 Obesity (Chronic) E66.9 Hypertension (Chronic) I10 Benign prostatic hypertrophy (Chronic) N40.0 COPD (chronic obstructive pulmonary disease) (Chronic) J44.9 GERD (gastroesophageal reflux disease) (Chronic) K21.9 [place] (obstructive sleep apnea) (Chronic) G47.33 PAD (peripheral artery disease) (Chronic) I73.9 Pleural effusion, left (Chronic) J90 HLD (hyperlipidemia) (Chronic) E78.5 Ischemic cardiomyopathy (Chronic) I25.5 Systolic CHF, chronic (Chronic) I50.22 Atrial fibrillation (Chronic) I48.91 AV Node RFA 07/11/2015 Atherosclerosis of [place] coronary artery of [place] heart without angina pectoris I25.10 03/25/2007 EVAN to prox LAD and PTCA to Diag 1; 07/19/2008 PTCA/EVAN to ostium of LAD; 07/31/2008 PTCA to ostial LAD and Diagonal 1; 05/2009 PTCA/EVAN to mid LAD and Diagonal 1 LV apical aneurysm with thrombus History of cardiac pacemaker Onset Date: ~07/11/15 Z95.0 Allergies tramadol Allergy (Verified 09/06/18 12:52) Hives Penicillins Adverse Reaction (Verified 09/06/18 12:52) Nausea Home Medications: Ambulatory Orders Medication Instructions Recorded gabapentin 300 mg capsule 300 mg PO TID cap 06/05/17 Aspirin [Aspirin EC] 81 mg PO DAILY 05/12/18 atorvastatin 40 mg tablet 40 mg PO QHS #30 tab 08/04/18 spironolactone 25 mg tablet 25 mg PO DAILY #30 tab 08/04/18 Furosemide [Lasix] 40 mg PO BID 08/09/18 Argin/Glut/Cahmb/Collag/Mv-Min 1 each PO BID 09/06/18 [Tomás Packet] Carvedilol [Coreg] 3.125 mg PO BID 09/06/18 Clopidogrel Bisulfate [Plavix] 75 mg PO DAILY 09/06/18 Famotidine 40 mg PO DAILY 09/06/18 Insulin Lispro [Humalog Kwikpen] 16 unit SQ TIDCM 09/06/18 Lisinopril [Zestril] 2.5 mg PO DAILY 09/06/18 Mineral Oil/Petrolatum,White 1 applic TOPICAL BID PRN PRN 09/06/18 [Eucerin] Tamsulosin HCl 0.4 mg PO QHS 09/06/18 Warfarin Sodium [Coumadin] 4 mg PO QHS 09/06/18 Surgical History: Surgical History (Last Reviewed 02/04/18 @ 16:06 by Keven Willingham MD) AICD (automatic cardioverter/defibrillator) present (Chronic) Z95.810 12/2009 implant; S/P PTCA (percutaneous transluminal coronary angioplasty) (Chronic) Z98.61 H/O atrioventricular chris ablation (Chronic) Onset Date: ~07/11/15 Z98.890 History of cholecystectomy Z98.890, Z90.49 S/P aorto-bifemoral bypass surgery Onset Date: ~2003 Z95.828 [facility] Surgical History: angioplasty, cholecystectomy, pacemaker implantation, - Psychiatric History: No pertinent psych hx 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 Smoking Status: Never smoker Tobacco Use: Non-smoker Alcohol: None Drugs: None - *Family History Paternal Family History: Family History (Last Reviewed 02/04/18 @ 16:06 by Keven Willingham MD) Father Hypertension CAD (coronary artery disease) Sister Cancer History Items: Heart Disease - CAD; at approximately 45 years of age Maternal Family History: Family History (Last Reviewed 02/04/18 @ 16:06 by Keven Willingham MD) Father Hypertension CAD (coronary artery disease) Sister Cancer History Items: Cancer - lung cancer Review of Systems Constitutional: Reports: Weakness, Weight Change - weight gain. Denies: Anorexia, Chills, Fever Eyes: Denies: Blurred vision, Cataracts, Conjunctivae Inflammation, Redness, Vision Change HEENT: Denies: Difficulty Hearing, Difficulty Swallowing, Head Aches, Hearing Changes, Sinus Congestion, Sinus Drainage Cardiovascular: Reports: Chest Pain, Edema, Orthopnea, Paroxysmal Noc. Dyspnea. Denies: Palpitations Respiratory: Reports: Shortness of breath at rest, Shortness of breath upon exertion. Denies: Cough, Hemoptysis, Sputum production Gastrointestinal: Denies: Abdominal Pain, Constipation, Hematemesis, Hematochezia, Nausea, Vomiting Genitourinary: Denies: Dysuria, Frequency, Incontinence Musculoskeletal: Denies: Joint Pain, Joint stiffness, Joint swelling, Joint Tenderness Skin: Denies: Pruritis, Rash, Wounds Neurological: Denies: Difficulty swallowing, Focal weakness, Numbness, Tingling Psychiatric: Denies: Anxiety, Depression, Homicidal Ideations, Suicidal Ideations Hematologic/ Lymphatic: Denies: Easy Bruising, Easy Bleeding VTE Information - Inpt Only VTE Present on Admission: No VTE Pharm Prophylaxis ordered?: Yes Patient Problems: Active and Suspected Problems (Last Updated 07/17/18 @ 12:27 by Suresh Scott MD) Altered mental status (Acute) - Physical Exam General: Alert, Oriented x3, Cooperative, No apparent distress, - - obese, not on oxygen HEENT: Atraumatic, PERRLA, EOMI, Normocephalic Oral: Moist Mucosa Neck: Supple Lungs: Normal air movement, Diminished Cardiovascular: Regular rate, Regular Rhythm, Normal S1, Normal S2, No murmurs Abdomen: Bowel Sounds Present, Soft, Non Tender, Non-Distended, Obese, - - mildline scar Extremities: Edema - bilateral pedal edema +4, incision on medial aspect of left thigh, wounds on the left lower leg Skin: No rashes, No breakdown Musculoskeletal: No Tenderness to Palpation of Joints or Extremities Lymphatic: No Cervical, Supraclavicular, or Inguinal Adenopathy Neurological: Cranial nerves II-XII grossly intact, Neuro grossly intact Psych/Mental Status: Normal Affect, Appropriate Vital Signs Temp Pulse Resp BP Pulse Ox 98.8 F 80 18 92/62 98 09/06/18 12:08 09/06/18 13:55 09/06/18 13:55 09/06/18 13:55 09/06/18 13:55 Oxygen Delivery Method Room Air Weight: 112.2 kg Body Mass Index (BMI) 42.4 Finger Stick Blood Glucose 87 Laboratory Tests Past 24 Hrs 09/06/18 09/06/18 09/06/18 12:52 12:52 12:52 WBC 7.0 RBC 3.84 L Hgb 9.8 L Hct 32.1 L MCV 83.6 MCH 25.5 L MCHC 30.5 L RDW 15.8 H RDW Differential 48.2 H Plt Count 185 MPV 10.0 Immature Gran % (Auto) 0.100 Neut % (Auto) 70.2 H Lymph % (Auto) 12.2 L Sully % (Auto) 15.8 H Eos % (Auto) 1.4 Baso % (Auto) 0.3 Absolute Neuts (auto) 4.9 Absolute Lymphs (auto) 0.86 Total Counted Not Reportable PT 34.2 H INR 3.4 APTT 40.2 H Sodium 139 Potassium 3.7 Chloride 105 Carbon Dioxide 28.0 Anion Gap 6 BUN 45 H Creatinine 1.53 H Estim Creat Clear Calc 45.68 Est GFR (MDRD) Af Amer 61 Est GFR (MDRD) Non-Af 50 L BUN/Creatinine Ratio 29.4 H Glucose 120 H Calcium 8.0 L Total Bilirubin 1.20 H Direct Bilirubin 0.51 H AST 20 ALT 28 Alkaline Phosphatase 288 H Troponin I < 0.015 B-Natriuretic Peptide Total Protein 6.7 Albumin 3.1 L Globulin 3.6 Urine Color Urine Clarity Urine pH Ur Specific [place] Urine Protein Urine Glucose (UA) Urine Ketones Urine Occult Blood Urine Nitrite Urine Bilirubin Urine Urobilinogen Ur Leukocyte Esterase Urine RBC Urine WBC Ur Squamous Epith Cells Urine Bacteria Urine Mucus 09/06/18 09/06/18 12:52 13:03 WBC RBC Hgb Hct MCV MCH MCHC RDW RDW Differential Plt Count MPV Immature Gran % (Auto) Neut % (Auto) Lymph % (Auto) Sully % (Auto) Eos % (Auto) Baso % (Auto) Absolute Neuts (auto) Absolute Lymphs (auto) Total Counted PT INR APTT Sodium Potassium Chloride Carbon Dioxide Anion Gap BUN Creatinine Estim Creat Clear Calc Est GFR (MDRD) Af Amer Est GFR (MDRD) Non-Af BUN/Creatinine Ratio Glucose Calcium Total Bilirubin Direct Bilirubin AST ALT Alkaline Phosphatase Troponin I B-Natriuretic Peptide 462.8 H Total Protein Albumin Globulin Urine Color Yellow Urine Clarity Sl. Cloudy Urine pH 6.5 Ur Specific [place] 1.010 Urine Protein Negative Urine Glucose (UA) Normal Urine Ketones Negative Urine Occult Blood Negative Urine Nitrite Negative Urine Bilirubin Negative Urine Urobilinogen Normal Ur Leukocyte Esterase Negative Urine RBC 0 SEEN Urine WBC 0 SEEN Ur Squamous Epith Cells 0-5 SEEN Urine Bacteria 0 SEEN Urine Mucus 0 SEEN Assessment/Plan All Active Problems (Last Updated 07/17/18 @ 12:27 by Suresh Scott MD) Altered mental status (Acute) Pneumonia (Resolved) 57 year old M with past medical history of type II DM, CAD status post previous stents (to LAD and proximal diagonal vessel in 2009), with ischemic cardiomyopathy, EF 30%, PAD s/p recent bypass surgery, status post ICD, chronic atrial fibrillation s/p ablation was recently seen in the cardiology office on 09/03/18, resident in [facility] comes in with complaints of lethargy and worsening lower extremity edema. 1. Acute on chronic systolic CHF, history of ischemic cardiomyopathy, EF of 30%, recently been having weight gain, Medication changes made in cardiology office; patient has relative hypotension, given IV Lasix 20 mg x1 in the ED Admitting BNP is 462.8, chest x-ray suggestive of CHF Plan: Admit to PCU, continue per CHF protocol, continue Lasix 20 mg twice daily, daily weights, strict I's and O's, cardiac diet LEONIDES-wraps to legs 2. Altered mental status, likely secondary to CHF, resolved at the time of exam, patient is alert oriented x3, gabapentin held 3. Chest pain, no acute changes EKG, troponins negative, will trend troponins, monitor vitals 4. Hypertension, relative, not new for patient, patient appears asymptomatic Lisinopril, carvedilol, gabapentin, spironolactone held We will continue to monitor vitals closely 5. Elevated liver enzymes, cholestatic picture, will get ultrasound of the gallbladder, trend CMP in a.m. 6. Type II DM, on insulin, would recheck HbA1c as the last one was in 2017, Continue on home schooling as well as insulin sliding scale with Accu-Cheks 7. Recent PAD status post bypass surgery, CAD status post stents, on aspirin, Plavix, statins, Metoprolol on hold for now on account of hypertension 8. Recent chronic venous stasis wounds, postop wounds, present on admission, wound RN consulted, continue Lasix therapy, elevate lower extremity 9. Atrial fibrillation, status post ablation, status post ICD 10. DVT PPx- INR is therapeutic; INR 3.4, Coumadin on hold, trend INR 11. CODE STATUS-DNR CCA from assisted records Code Visit Inpatient E&M: 66161 Init Hosp L3
[2018-09-06 19:19] LABS: Thyroid Stim Hormone (TSH) 2.99 uIU/mL (0.358-3.74)
[2018-09-06] MEDS: oxyCODONE 5 MG Tablet 2.5 MG PO (21:07)
[2018-09-06] MEDS: Acetaminophen 500 MG Tablet 1000 MG PO (21:08)
[2018-09-06] MEDS: Atorvastatin Calcium 40 MG Tablet PO (21:08)
[2018-09-06 22:35] LABS: Ferritin 36 ng/mL (26-388); Iron 25 ug/dL (65-175); Iron Binding Capacity,Total 485 ug/dL (250-450); PERCENT IRON SATURATION 5.2 % (15.0-55.0)
[2018-09-07] VITALS (12 sets, daily range): BP systolic 104–112; BP diastolic 52–75; PULSE 80–83; RESP 18–20; TEMP 36.2–37.1; O2SAT 94–98
[2018-09-07 07:58] LABS: Absolute Lymphocyte Count 0.94 X10^3/ul (0.83-4.51); Absolute Neutrophil Count 4.8 X10^3/uL (2.0-7.7); Basophil# 0.02 X10^3/uL; Basophil% 0.3 % (0-1); Eosinophil# 0.09 X10^3/uL; Eosinophils% 1.4 % (0-5); Hematocrit 32.3 % (40-54); Hemoglobin 9.8 g/dl (13.0-16.5); Lymphocyte # 0.94 X10^3/ul (4.0); Mean Corp Hgb Conc 30.3 g/gl (32-36); Mean Corpuscular Hgb 25.1 pg (27.0-32.0); Mean Corpuscular Volume 82.8 fL (80-94); Mean Platelet Vol. 9.9 fl (6.2-12.0); Monocyte# 0.42 X10^3/uL; Monocyte% 6.7 % (0-10); Neutrophil # 4.78 X10^3/uL (2.7-7.7); Neutrophil % 76.4 % (47-70); Platelet Count 175 K/mm3 (150-450); RBC Distribution Width CV 15.9 % (11.6-14.6); RBC Distribution Width SD 48.1 fl (35.1-43.9); White Blood Count 6.3 K/mm3 (4.4-11.0)
[2018-09-07 07:59] LABS: POSITIVE COUNT NO; POSITIVE DIFFERENTIAL NO; POSITIVE MORPHOLOGY NO
[2018-09-07 08:31] LABS: International Normalized Ratio 3.1; Prothrombin Time (Protime)PT. 32.5 SECONDS (11.7-14.9)
[2018-09-07 08:34] LABS: ALB/GLOB Ratio 0.9 RATIO (0.9-2.4); AST(SGOT) 22 U/L (15-37); Alanine Aminotransfer ALT/SGPT 27 U/L (16-61); Albumin, Serum 3.1 g/dL (3.2-5.0); Alkaline Phosphatase 287 U/L (45-117); Anion Gap 6 (5-15); BUN 43 mg/dL (7-18); BUN/Creat Ratio 30.1 RATIO (10-20); Calcium,Total 8.2 mg/dL (8.5-10.1); Chloride 104 mmol/L (98-107); Cholesterol 63 mg/dL (200); Creatinine, Serum 1.43 mg/dL (0.70-1.30); EST Glomerular Filtration Rate 54 mL/min (>60); Est Glom Filt Rate - Afr Amer 66 mL/min (>60); Estimated Creatinine Clearance 48.87 ml/min; Globulin 3.5 g/dL (2.2-4.2); Glucose 132 mg/dL (74-106); High Density Lipoprotein 29 mg/dL; Potassium 4.1 mmol/L (3.5-5.1); Protein, Total 6.6 g/dL (6.4-8.2); Sodium Level 137 mmol/L (136-145); Triglycerides 55 mg/dL; Very Low Density Lipoprotein 11 mg/dL (5-40)
[2018-09-07] MEDS: Aspirin E.C. 81 MG Tablet PO (11:39)
[2018-09-07] MEDS: Famotidine 20 MG Tablet 40 MG PO (11:39)
[2018-09-07] MEDS: Clopidogrel Bisulfate 75 MG Tablet PO (11:39)
[2018-09-07] MEDS: 0.9% NaCl Peripheral Flush Adult/Peds IV ×2 (11:40→17:36)
[2018-09-07] MEDS: Furosemide 20 MG/2 ML VIAL IV ×2 (11:40→17:36)
--- NOTE | 2018-09-07 12:09 | NURSING ---
wound photo: left medial lower leg
--- NOTE | 2018-09-07 12:10 | NURSING ---
wound photo: left plantar foot
--- NOTE | 2018-09-07 12:11 | NURSING ---
wound photo: left foot (between 3rd and 4th toes)
--- NOTE | 2018-09-07 14:47 | PCM.PROGNOTE ---
Patient Problems: Active and Suspected Problems (Last Updated 07/17/18 @ 12:27 by Suresh Scott MD) Altered mental status (Acute) Subjective: Patient seen and examined. No acute events overnight. No further lethargy or altered mental status. - Physical Exam General: Alert, Oriented x3, Cooperative HEENT: Atraumatic, PERRLA, EOMI, Normocephalic Neck: Supple, No JVD, Negative Carotid Bruits Lungs: Clear to auscultation, Diminished Cardiovascular: Regular rate, Regular Rhythm, Normal S1, Normal S2, No murmurs Abdomen: Bowel Sounds Present, Soft, Non Tender, Non-Distended, Obese Extremities: No clubbing, No cyanosis, Edema - BLLE Skin: - - Left medial lower leg wound from prior vascular intervention, left foot ulcers. Dressings clean dry and intact. Musculoskeletal: No Tenderness to Palpation of Joints or Extremities Neurological: Cranial nerves II-XII grossly intact, Neuro grossly intact Psych/Mental Status: Normal Affect, Appropriate Vital Signs Temp Pulse Resp BP Pulse Ox 97.1 F L 80 20 H 104/52 L 94 09/07/18 08:50 09/07/18 11:00 09/07/18 08:50 09/07/18 08:50 09/07/18 08:50 Oxygen Delivery Method Room Air Weight: 224 lb 3.362 oz Body Mass Index (BMI) 38.9 Finger Stick Blood Glucose 87 Intake and Output for Last 24 Hours 09/05/18 09/06/18 09/07/18 23:59 23:59 23:59 Intake Total 240 / 240 840 / 840 Output Total 725 / 725 950 / 950 Balance -485 / -485 -110 / -110 Laboratory Tests Past 24 Hrs 09/06/18 09/06/18 09/06/18 15:25 16:25 18:25 WBC RBC Hgb Hct MCV MCH MCHC RDW RDW Differential Plt Count MPV Immature Gran % (Auto) Neut % (Auto) Lymph % (Auto) [facility] % (Auto) Eos % (Auto) Baso % (Auto) Absolute Neuts (auto) Absolute Lymphs (auto) Total Counted PT INR Sodium Potassium Chloride Carbon Dioxide Anion Gap BUN Creatinine Estim Creat Clear Calc Est GFR (MDRD) Af Amer Est GFR (MDRD) Non-Af BUN/Creatinine Ratio Glucose Calcium Iron TIBC Iron Saturation Ferritin Total Bilirubin AST ALT Alkaline Phosphatase Troponin I < 0.015 < 0.015 Total Protein Albumin Globulin Albumin/Globulin Ratio Triglycerides Cholesterol LDL Cholesterol VLDL Cholesterol HDL Cholesterol TSH 2.99 09/06/18 09/07/18 09/07/18 18:25 07:35 07:35 WBC 6.3 RBC 3.90 L Hgb 9.8 L Hct 32.3 L MCV 82.8 MCH 25.1 L MCHC 30.3 L RDW 15.9 H RDW Differential 48.1 H Plt Count 175 MPV 9.9 Immature Gran % (Auto) 0.200 Neut % (Auto) 76.4 H Lymph % (Auto) 15.[address] [facility] % (Auto) 6.7 Eos % (Auto) 1.4 Baso % (Auto) 0.3 Absolute Neuts (auto) 4.8 Absolute Lymphs (auto) 0.94 Total Counted Not Reportable PT 32.5 H INR 3.1 Sodium Potassium Chloride Carbon Dioxide Anion Gap BUN Creatinine Estim Creat Clear Calc Est GFR (MDRD) Af Amer Est GFR (MDRD) Non-Af BUN/Creatinine Ratio Glucose Calcium Iron 25 L TIBC 485 H Iron Saturation 5.2 L Ferritin 36 Total Bilirubin AST ALT Alkaline Phosphatase Troponin I Total Protein Albumin Globulin Albumin/Globulin Ratio Triglycerides Cholesterol LDL Cholesterol VLDL Cholesterol HDL Cholesterol TSH 09/07/18 07:35 WBC RBC Hgb Hct MCV MCH MCHC RDW RDW Differential Plt Count MPV Immature Gran % (Auto) Neut % (Auto) Lymph % (Auto) [facility] % (Auto) Eos % (Auto) Baso % (Auto) Absolute Neuts (auto) Absolute Lymphs (auto) Total Counted PT INR Sodium 137 Potassium 4.1 Chloride 104 Carbon Dioxide 27.0 Anion Gap 6 BUN 43 H Creatinine 1.43 H Estim Creat Clear Calc 48.87 Est GFR (MDRD) Af Amer 66 Est GFR (MDRD) Non-Af 54 L BUN/Creatinine Ratio 30.1 H Glucose 132 H Calcium 8.2 L Iron TIBC Iron Saturation Ferritin Total Bilirubin 1.60 H AST 22 ALT 27 Alkaline Phosphatase 287 H Troponin I Total Protein 6.6 Albumin 3.1 L Globulin 3.5 Albumin/Globulin Ratio 0.9 Triglycerides 55 Cholesterol 63 LDL Cholesterol 23 VLDL Cholesterol 11 HDL Cholesterol 29 L TSH Medical Necessity - Tobacco Use Smoking Status: Never smoker Tobacco Use: Non-smoker Assessment/Plan All Active Problems (Last Updated 07/17/18 @ 12:27 by Suresh Scott MD) Altered mental status (Acute) Pneumonia (Resolved) 1. Acute on chronic systolic CHF ischemic cardiomyopathy-Echocardiogram July 2016 with EF 30%. BNP 462. Strict I&O. Daily weight. Continue IV Lasix. Vinnie wraps bilateral lower extremities. Repeat echocardiogram. Patient follows with Dr. Willingham. 2. Acute metabolic encephalopathy, secondary to #1-resolved. 3. Chest pain-EKG without ST-T changes. Troponin negative. Denies further chest pain. 4. Hypertension-stable, continue home carvedilol, lisinopril, spironolactone regimen. 5. Normocytic anemia, iron deficiency anemia-begin iron supplementation. Trend CBC. 6. Chronic kidney disease stage III-at baseline, trend BMP. 7. Elevated bilirubin-gallbladder ultrasound pending 8. Type 2 diabetes [id number] AC at bedtime with sliding scale insulin. 9. Recent PAD status post bypass surgery with left lower extremity wound-wound RN consult. Continue aspirin, Plavix, statin. 10. CAD status post stents-continue aspirin, statin, Plavix, metoprolol. 11. Chronic venous stasis wounds/foot ulcerations LLE-wound RN consult. Vinnie wraps bilateral lower extremities. 12. Atrial fibrillation status post ablation/status post ICD- 13. BPH-continue Flomax regimen. DVT prophylaxis-Coumadin This patient was seen by PRIMITIVO Smith under the supervision of Dr. Rosario.
[2018-09-07] MEDS: Acetaminophen 500 MG Tablet 1000 MG PO ×2 (14:51→21:19)
--- NOTE | 2018-09-07 15:01 | ECHOD_ITS ---
Reason For Study: CHF Procedure This was a 2D Doppler, Color Flow transthoracic echocardiogram. The study was technically difficult. Exam performed portable in patient room. Left Ventricle Moderately dilated left ventricle. The estimated ejection fraction is 25 %. Paced septal motion. There are regional wall motion abnormalities as specified. Right Ventricle Moderately dilated right ventricle. ICD or pacer leads identified within the right ventricle. Mild global right ventricular systolic dysfunction. Atria The left atrium is severely enlarged. The right atrium is mildly enlarged. Normal atrial septum. Mitral Valve The mitral valve is structurally normal. No prolapse or stenosis seen. Mild mitral annular calcification extending into the posterior leaflet. Mild (1+) mitral valve insufficiency. Tricuspid Valve Normal tricuspid valve. Mild (1+) tricuspid valve insufficiency. Right ventricular systolic pressure estimated to be 67 mmHg. Severe pulmonary hypertension. Aortic Valve Trisinus/trileaflet aortic valve. Normal aortic valve. Pulmonic Valve Normal pulmonic valve. Great Vessels Normal aortic root. Normal arch. The inferior vena cava is dilated. Pericardium/Pleural No pericardial effusion. Medication Definity deferred due to elevated PAP. MMode/2D Measurements & Calculations LVIDd: 5.5 cm IVSd: 0.84 cm Ao root diam: 2.8 cm LVIDs: 4.2 cm LVPWd: 0.85 cm RVDd: 4.4 cm FS: 23.6 % LAV(MOD-bp): 81.2 ml LA A4 area: 29.0 cm2 LA dimension(2D): 4.2 cm LAV(MOD-bp) Indexed: 39.6 ml/m2 LAV(MOD-sp2): 60.3 ml LAV(MOD-sp4): 100.1 ml RA A4 area: 21.7 cm2 Time Measurements MV dec time: 0.13 sec Doppler Measurements & Calculations MV E max preston: 127.1 cm/sec Lat Peak E' Preston: 5.1 cm/sec Med Peak E' Perston: 3.7 cm/sec MV A max preston: 28.4 cm/sec E/E' lat: 24.9 E/E' med: 34.6 MV E/A: 4.5 Ao V2 max: 143.8 cm/sec LV V1 max: 78.6 cm/sec PA V2 max: 65.8 cm/sec Ao max P.3 mmHg LV V1 max P.5 mmHg TR max preston: 375.7 cm/sec TR max P.6 mmHg Interpretation Summary Moderately dilated left ventricle. The estimated ejection fraction is 25 %. There are regional wall motion abnormalities as specified. Moderately dilated right ventricle. The left atrium is severely enlarged. The right atrium is mildly enlarged. Mild (1+) mitral valve insufficiency. Mild (1+) tricuspid valve insufficiency. Right ventricular systolic pressure estimated to be 67 mmHg. Severe pulmonary hypertension. The inferior vena cava is dilated In comparison to echo report dated 08/16/2016, LV function has remained the same. RVSP has increased fro 32 to 67 mm Hg. Ordering Physician: PRIMITIVO Smith Referring Physician: BETITO HILL Performed By: Yolande Mccyo, RIVKA, RVT
--- NOTE | 2018-09-07 15:28 | US_ITS ---
STUDY: ABDOMINAL ULTRASOUND - RIGHT UPPER QUADRANT REASON FOR VISIT: Male, 57 years old. Elevated LFTs. TECHNIQUE: Ultrasound evaluation of the right upper quadrant was performed with real-time and static metcalf-scale imaging. TECHNICAL QUALITY: Adequate. COMPARISON: None. FINDINGS: Liver: The liver measures 20 cm. There is normal echogenicity of the liver. There is mildly lobular surface pattern. The bile ducts are within normal limits. There is hepatic color flow. The direction of portal flow is hepatopetal. There is no demonstrated mass lesion. Gallbladder: The patient is status post cholecystectomy. Common Bile Duct (C.B.D.): The common bile duct measures 3.8 mm. Pancreas: Normal size of the head, body and tail of the pancreas. There is normal echogenicity of the pancreas. There is no demonstrated pancreatic mass or cyst. Right Kidney: Normal size of the right kidney. The right kidney measures 10.7 cm. Normal renal cortex. The right cortex measures 1.1 cm. There is no demonstrated renal mass or cyst. There is no right hydronephrosis. Incidental findings are minimal ascites in the hepatorenal fossa as well as a right pleural effusion. US/Gallbladder IMPRESSION: 1. Enlarged liver without focal mass. 2. Minimal ascites. 3. Right pleural effusion. 4. Otherwise normal postcholecystectomy right upper quadrant ultrasound. Electronically Signed: Shine Leung DO at 18:54 EDT Tel [phone], Service support ,
[2018-09-07] MEDS: Ferrous Sulfate 325 MG Tablet PO (17:36)
[2018-09-07 19:00] LABS: Bedside Glucose 170 mg/dL (70-110)
[2018-09-07] MEDS: Tamsulosin HCl 0.4 MG Capsule PO (21:16)
[2018-09-07] MEDS: Ondansetron 4 MG/2 ML Vial IV (21:17)
[2018-09-07] MEDS: Atorvastatin Calcium 40 MG Tablet PO (21:20)
[2018-09-07 22:41] LABS: Bedside Glucose 146 mg/dL (70-110)
[2018-09-07] MEDS: Gabapentin 100 MG Capsule PO (22:47)
[2018-09-08] VITALS (10 sets, daily range): BP systolic 96–107; BP diastolic 51–74; PULSE 80; RESP 14–18; TEMP 36.6–36.8; O2SAT 96–100
[2018-09-08 05:35] LABS: Hemoglobin 10.2 g/dl (13.0-16.5); Mean Corp Hgb Conc 30.9 g/gl (32-36); Mean Corpuscular Hgb 25.2 pg (27.0-32.0); Mean Corpuscular Volume 81.7 fL (80-94); Mean Platelet Vol. 10.3 fl (6.2-12.0); Platelet Count 184 K/mm3 (150-450); RBC Distribution Width SD 46.4 fl (35.1-43.9); Red Blood Count 4.04 M/mm3 (4.6-6.2); White Blood Count 4.7 K/mm3 (4.4-11.0)
[2018-09-08 05:42] LABS: Scan Indicated on CBC? Y/N NO
[2018-09-08 05:57] LABS: ALB/GLOB Ratio 0.9 RATIO (0.9-2.4); AST(SGOT) 23 U/L (15-37); Alanine Aminotransfer ALT/SGPT 27 U/L (16-61); Albumin, Serum 3.1 g/dL (3.2-5.0); Alkaline Phosphatase 279 U/L (45-117); Anion Gap 6 (5-15); BUN 41 mg/dL (7-18); BUN/Creat Ratio 28.3 RATIO (10-20); Calcium,Total 8.5 mg/dL (8.5-10.1); Chloride 104 mmol/L (98-107); Creatinine, Serum 1.45 mg/dL (0.70-1.30); EST Glomerular Filtration Rate 54 mL/min (>60); Est Glom Filt Rate - Afr Amer 65 mL/min (>60); Globulin 3.4 g/dL (2.2-4.2); Glucose 129 mg/dL (74-106); Potassium 3.9 mmol/L (3.5-5.1); Protein, Total 6.5 g/dL (6.4-8.2); Sodium Level 138 mmol/L (136-145)
[2018-09-08 06:50] LABS: Bedside Glucose 156 mg/dL (70-110)
[2018-09-08] MEDS: Acetaminophen 500 MG Tablet 1000 MG PO ×2 (06:50→14:03)
[2018-09-08] MEDS: Gabapentin 100 MG Capsule PO ×3 (09:15→16:34)
[2018-09-08] MEDS: Famotidine 20 MG Tablet 40 MG PO (09:15)
[2018-09-08] MEDS: Furosemide 20 MG/2 ML VIAL IV ×2 (09:15→16:34)
[2018-09-08] MEDS: Aspirin E.C. 81 MG Tablet PO (09:15)
[2018-09-08] MEDS: Clopidogrel Bisulfate 75 MG Tablet PO (09:16)
[2018-09-08] MEDS: Ferrous Sulfate 325 MG Tablet PO ×2 (09:16→16:34)
[2018-09-08] MEDS: Insulin Lispro 100 UNIT/ML INSULN.PEN SQ ×4 (09:16→22:59)
--- NOTE | 2018-09-08 09:24 | CASEMGMT ---
Addendum entered by Magalys Amos 09/08/18 09:42: SW spoke with patient and confirmed his plan is to return to [place] at discharge. Magalys SUH Original Note: NATALY received a call from Monika Marin, patient's Waiver Physician Credentialing Specialist. SW let her know patient's plan is to return to [place]. Magalys BLAIR MSW
[2018-09-08 11:30] LABS: Bedside Glucose 166 mg/dL (70-110)
[2018-09-08] MEDS: oxyCODONE 5 MG Tablet PO (14:04)
--- NOTE | 2018-09-08 14:28 | PCM.PROGNOTE ---
Patient Problems: Active and Suspected Problems (Last Updated 07/17/18 @ 12:27 by Suresh Scott MD) Altered mental status (Acute) Subjective: Patient seen and examined. Shortness of breath improved. Denies abdominal pain. No other current complaints. - Physical Exam General: Alert, Oriented x3, Cooperative HEENT: Atraumatic, PERRLA, EOMI, Normocephalic Neck: Supple, No JVD, Negative Carotid Bruits Lungs: Clear to auscultation, Diminished Cardiovascular: Regular rate, Regular Rhythm, Normal S1, Normal S2, No murmurs Abdomen: Bowel Sounds Present, Soft, Non Tender, Non-Distended, Obese Extremities: No clubbing, No cyanosis, Capillary Refill Less than 3 Seconds, Edema - Edema bilateral lower extremities, Vinnie wraps in place. Skin: - - Left medial lower leg wound from prior vascular intervention, left foot ulcers. Dressings clean dry and intact. Musculoskeletal: No Tenderness to Palpation of Joints or Extremities Neurological: Cranial nerves II-XII grossly intact, Neuro grossly intact Psych/Mental Status: Normal Affect, Appropriate Vital Signs Temp Pulse Resp BP Pulse Ox 98.0 F 80 14 99/51 L 100 09/08/18 09:50 09/08/18 10:58 09/08/18 09:50 09/08/18 09:50 09/08/18 09:50 Oxygen Delivery Method Room Air Weight: 222 lb 10.67 oz Body Mass Index (BMI) 38.9 Finger Stick Blood Glucose 87 Intake and Output for Last 24 Hours 09/06/18 09/07/18 09/08/18 23:59 23:59 23:59 Intake Total 240 / 240 1060 / 1060 550 / 550 Output Total 725 / 725 1750 / 1750 925 / 925 Balance -485 / -485 -690 / -690 -375 / -375 Laboratory Tests Past 24 Hrs 09/08/18 09/08/18 05:00 05:00 WBC 4.7 RBC 4.04 L Hgb 10.2 L Hct 33.0 L MCV 81.7 MCH 25.2 L MCHC 30.9 L RDW 16.0 H RDW Differential 46.4 H Plt Count 184 MPV 10.3 Sodium 138 Potassium 3.9 Chloride 104 Carbon Dioxide 28.0 Anion Gap 6 BUN 41 H Creatinine 1.45 H Estim Creat Clear Calc 48.20 Est GFR (MDRD) Af Amer 65 Est GFR (MDRD) Non-Af 54 L BUN/Creatinine Ratio 28.3 H Glucose 129 H Calcium 8.5 Total Bilirubin 1.70 H AST 23 ALT 27 Alkaline Phosphatase 279 H Total Protein 6.5 Albumin 3.1 L Globulin 3.4 Albumin/Globulin Ratio 0.9 POC Glucose 09/08/18 09/08/18 09/07/18 11:17 06:34 22:34 POC Glucose 166 H 156 H 146 H 09/07/18 18:54 POC Glucose 170 H Medical Necessity - Tobacco Use Smoking Status: Never smoker Tobacco Use: Non-smoker Assessment/Plan All Active Problems (Last Updated 07/17/18 @ 12:27 by Suresh Scott MD) Altered mental status (Acute) Pneumonia (Resolved) 1. Acute on chronic systolic CHF ischemic cardiomyopathy-Echocardiogram July 2016 with EF 30%. BNP 462. Strict I&O. Daily weight. Continue IV Lasix. Vinnie wraps bilateral lower extremities. Repeat echocardiogram pending. Patient follows with Dr. Willingham. 2. Acute metabolic encephalopathy, secondary to #1-resolved. 3. Chest pain-EKG without ST-T changes. Troponin negative. Denies further chest pain. 4. Hypertension-stable, continue home carvedilol, lisinopril, spironolactone regimen. 5. Normocytic anemia, iron deficiency anemia-begin iron supplementation. Trend CBC. 6. Chronic kidney disease stage III-at baseline, trend BMP. 7. Elevated bilirubin/alkaline phosphatase-gallbladder ultrasound showed enlarged liver without focal mass, minimal ascites, right pleural effusion, otherwise normal postcholecystectomy right upper quadrant ultrasound. Trend CMP. 8. Type 2 diabetes [id number] AC at bedtime with sliding scale insulin. 9. Recent PAD status post bypass surgery with left lower extremity wound-wound RN consult. Continue aspirin, Plavix, statin. 10. CAD status post stents-continue aspirin, statin, Plavix, metoprolol. 11. Chronic venous stasis wounds/foot ulcerations LLE-wound RN consult. Vinnie wraps bilateral lower extremities. 12. Atrial fibrillation status post ablation/status post ICD 13. BPH-continue Flomax regimen. DVT prophylaxis-Coumadin Discharge planning: SNF pending pre-cert. This patient was seen by PRIMITIVO Smith under the supervision of Dr. Rosario.
[2018-09-08 16:46] LABS: Bedside Glucose 189 mg/dL (70-110)
[2018-09-08] MEDS: Tamsulosin HCl 0.4 MG Capsule PO (22:59)
[2018-09-08] MEDS: Atorvastatin Calcium 40 MG Tablet PO (22:59)
[2018-09-08 23:36] LABS: Bedside Glucose 154 mg/dL (70-110)
[2018-09-09 03:06] VITALS: PULSE 80
[2018-09-09 04:53] VITALS: BP 115/74; PULSE 71; RESP 16; TEMP 36.7; O2SAT 100
[2018-09-09 06:43] LABS: ALB/GLOB Ratio 0.9 RATIO (0.9-2.4); AST(SGOT) 46 U/L (15-37); Alanine Aminotransfer ALT/SGPT 43 U/L (16-61); Albumin, Serum 3.1 g/dL (3.2-5.0); Alkaline Phosphatase 323 U/L (45-117); Anion Gap 9 (5-15); BUN 34 mg/dL (7-18); BUN/Creat Ratio 23.8 RATIO (10-20); Calcium,Total 8.5 mg/dL (8.5-10.1); Chloride 102 mmol/L (98-107); Creatinine, Serum 1.43 mg/dL (0.70-1.30); EST Glomerular Filtration Rate 54 mL/min (>60); Est Glom Filt Rate - Afr Amer 66 mL/min (>60); Estimated Creatinine Clearance 48.87 ml/min; Globulin 3.6 g/dL (2.2-4.2); Glucose 142 mg/dL (74-106); Protein, Total 6.7 g/dL (6.4-8.2); Sodium Level 138 mmol/L (136-145)
[2018-09-09 06:50] LABS: Bedside Glucose 127 mg/dL (70-110)
[2018-09-09 06:52] LABS: International Normalized Ratio 2.9; Prothrombin Time (Protime)PT. 30.4 SECONDS (11.7-14.9)
[2018-09-09 07:07] VITALS: PULSE 80
[2018-09-09] MEDS: Furosemide 20 MG/2 ML VIAL IV (09:12)
[2018-09-09] MEDS: Clopidogrel Bisulfate 75 MG Tablet PO (09:12)
[2018-09-09] MEDS: Aspirin E.C. 81 MG Tablet PO (09:12)
[2018-09-09] MEDS: Gabapentin 100 MG Capsule PO ×2 (09:12→11:45)
[2018-09-09] MEDS: Ferrous Sulfate 325 MG Tablet PO (09:12)
[2018-09-09] MEDS: Famotidine 20 MG Tablet 40 MG PO (09:13)
[2018-09-09 09:19] VITALS: BP 105/78; PULSE 71; RESP 18; TEMP 37.2; O2SAT 99
--- NOTE | 2018-09-09 10:16 | CASEMGMT ---
Received call from Rose Mary at [facility] and patient was approved to go back to [facility]. SW notified physician. Magalys BLAIR MSW
--- NOTE | 2018-09-09 11:17 | PCM.EXTCARCO ---
- Diet 09/06/18 15:21 Diet: Cardiac/Low Cholesterol Food consistency:: Regular Liquid Consistency:: Regular/Thin - Routine Orders/Code Status Suppository Type: Dulcolax 10mg Suppository Frequency: Daily PRN O2 Frequency: PRN Routine Lab Work: CBC - 7 days, BMP - 3 days Code Status: [facility] - Wound(s) left calf Wound Type: Stasis Ulcer left thigh Wound Type: Open Surgical Wound bottom of left foot Wound Type: Neuropathic/Diabetic Foot Ulcer Dressing Change: betadine moistened gauze left foot Wound Type: Neuropathic/Diabetic Foot Ulcer Dressing Change: betadine moistened gauze left medial lower leg Wound Type: Open Surgical Wound Dressing Change: Wet to Dry Dressing - Therapies Physical Therapy: Eval and Treat Occupational Therapy: Eval and Treat - Problem/Diagnosis (1) Acute CHF Status: Acute Current Visit: Yes (2) CAD (coronary artery disease) Status: Chronic Current Visit: No (3) 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 Current Visit: No (4) longterm 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 Status: Chronic Current Visit: No (5) ICD (implantable cardioverter-defibrillator), biventricular, in situ Status: Chronic Current Visit: No (6) Diabetes mellitus Status: Chronic Current Visit: No (7) Obesity Status: Chronic Current Visit: No (8) Hypertension Status: Chronic Current Visit: No (9) Benign prostatic hypertrophy Status: Chronic Current Visit: No (10) COPD (chronic obstructive pulmonary disease) Status: Chronic Current Visit: No (11) GERD (gastroesophageal reflux disease) Status: Chronic Current Visit: No (12) JUAN [place]IEGO (obstructive sleep apnea) Status: Chronic Current Visit: No (13) AICD (automatic cardioverter/defibrillator) present Status: Chronic Comment: 12/2009 implant; Current Visit: No (14) PAD (peripheral artery disease) Status: Chronic Current Visit: No (15) S/P PTCA (percutaneous transluminal coronary angioplasty) Status: Chronic Current Visit: No (16) HLD (hyperlipidemia) Status: Chronic Current Visit: No (17) Ischemic cardiomyopathy Status: Chronic Current Visit: No (18) Systolic CHF, chronic Status: Chronic Current Visit: No (19) Atrial fibrillation Status: Chronic Comment: AV Node RFA 07/11/2015 Current Visit: No (20) H/O atrioventricular chris ablation Status: Chronic Current Visit: No - Allergies/Procedures Done in Hospital Allergies/Adverse Reactions: Allergies tramadol Allergy (Verified 09/06/18 12:52) Hives Penicillins Adverse Reaction (Verified 09/06/18 12:52) Nausea Procedures: None - Type of Care/Length of Stay Estimated LOS: Convalescent Care Less Than 30 days Type of Care Needed: Skilled Rehab Potential: Fair Prognosis: Fair - Additional Orders/Day of Discharge Day of Discharge: 09/09/18 - Dietary and Speech Recommendations Dietitian Recommendations/Changes: Recommend Low Sodium/Carb-Controlled Diet with 1600ml Fluid Restriction. Recommend Tomás 2 packets per day for additional protein for wound healing--order from pharmacy. - Follow Up Care Primary Care Physician: Osei Ely MD [Primary Care Provider] - Please follow up with your Primary Care Physician in: 2 weeks
--- NOTE | 2018-09-09 11:20 | TREXTCA.CO_ITS ---
Addendum entered and electronically signed by JENNIFER Caraballo 09/09/18 11:31: Code Visit Please also follow up with Cardiology, 2 weeks, Dr. Willingham. Original Note: - Diet 09/06/18 15:21 Diet: Cardiac/Low Cholesterol Food consistency:: Regular Liquid Consistency:: Regular/Thin - Routine Orders/Code Status Suppository Type: Dulcolax 10mg Suppository Frequency: Daily PRN O2 Frequency: PRN Routine Lab Work: CBC - 7 days, BMP - 3 days Code Status: [facility]-A - Wound(s) left calf Wound Type: Stasis Ulcer left thigh Wound Type: Open Surgical Wound bottom of left foot Wound Type: Neuropathic/Diabetic Foot Ulcer Dressing Change: betadine moistened gauze left foot Wound Type: Neuropathic/Diabetic Foot Ulcer Dressing Change: betadine moistened gauze left medial lower leg Wound Type: Open Surgical Wound Dressing Change: Wet to Dry Dressing - Therapies Physical Therapy: Eval and Treat Occupational Therapy: Eval and Treat - Problem/Diagnosis (1) Acute CHF Status: Acute Current Visit: Yes (2) CAD (coronary artery disease) Status: Chronic Current Visit: No (3) 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 Current Visit: No (4) 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 care administrator 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 Status: Chronic Current Visit: No (5) ICD (implantable cardioverter-defibrillator), biventricular, in situ Status: Chronic Current Visit: No (6) Diabetes mellitus Status: Chronic Current Visit: No (7) Obesity Status: Chronic Current Visit: No (8) Hypertension Status: Chronic Current Visit: No (9) Benign prostatic hypertrophy Status: Chronic Current Visit: No (10) COPD (chronic obstructive pulmonary disease) Status: Chronic Current Visit: No (11) GERD (gastroesophageal reflux disease) Status: Chronic Current Visit: No (12) JUAN DIEGO (obstructive sleep apnea) Status: Chronic Current Visit: No (13) AICD (automatic cardioverter/defibrillator) present Status: Chronic Comment: 12/2009 implant; Current Visit: No (14) PAD (peripheral artery disease) Status: Chronic Current Visit: No (15) S/P PTCA (percutaneous transluminal coronary angioplasty) Status: Chronic Current Visit: No (16) HLD (hyperlipidemia) Status: Chronic Current Visit: No (17) Ischemic cardiomyopathy Status: Chronic Current Visit: No (18) Systolic CHF, chronic Status: Chronic Current Visit: No (19) Atrial fibrillation Status: Chronic Comment: AV Node RFA 07/11/2015 Current Visit: No (20) H/O atrioventricular chris ablation Status: Chronic Current Visit: No - Allergies/Procedures Done in Hospital Allergies/Adverse Reactions: Allergies tramadol Allergy (Verified 09/06/18 12:52) Hives Penicillins Adverse Reaction (Verified 09/06/18 12:52) Nausea Procedures: None - Type of Care/Length of Stay Estimated LOS: Convalescent Care Less Than 30 days Type of Care Needed: Skilled Rehab Potential: Fair Prognosis: Fair - Additional Orders/Day of Discharge Day of Discharge: 09/09/18 - Dietary and Speech Recommendations Dietitian Recommendations/Changes: Recommend Low Sodium/Carb-Controlled Diet with 1600ml Fluid Restriction. Recommend Tomás 2 packets per day for additional protein for wound healing--order from pharmacy. - Follow Up Care Primary Care Physician: Osei Ely MD [Primary Care Provider] - Please follow up with your Primary Care Physician in: 2 weeks
[2018-09-09] MEDS: Insulin Lispro 100 UNIT/ML INSULN.PEN SQ (11:44)
[2018-09-09] MEDS: Acetaminophen 500 MG Tablet 1000 MG PO (11:45)
[2018-09-09 11:56] LABS: Bedside Glucose 150 mg/dL (70-110)
--- NOTE | 2018-09-09 13:40 | PCM.DC.SUM ---
Discharge Date and Diagnosis Date of Admission: 09/06/18 Date of Discharge: 09/09/18 - Primary Discharge Diagnosis Acute systolic congestive heart failure exacerbation, ischemic cardiomyopathy, complicated by severe pulmonary hypertension Acute metabolic encephalopathy secondary to above AICD in place Atrial fibrillation Hypertension Iron deficiency anemia CKD stage III Type 2 diabetes with morbid obesity PAD with recent bypass surgery, chronic left lower extremity wound CAD with prior stents Chronic venous stasis wounds, left lower extremity, foot ulcerations BPH - Secondary Discharge Diagnosis Chronic Problems (Last Reviewed 02/04/18 @ 16:06 by Keven Willingham MD) CAD (coronary artery disease) (Chronic) Mural thrombus of cardiac apex (Chronic) FCI 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 (Chronic) ICD (implantable cardioverter-defibrillator), biventricular, in situ (Chronic) Atherosclerosis of [place] coronary artery of [place] heart without angina pectoris (Chronic) PCI to LAD & diagonal in 2009; Diabetes mellitus (Chronic) Obesity (Chronic) Hypertension (Chronic) Benign prostatic hypertrophy (Chronic) COPD (chronic obstructive pulmonary disease) (Chronic) GERD (gastroesophageal reflux disease) (Chronic) [place] (obstructive sleep apnea) (Chronic) AICD (automatic cardioverter/defibrillator) present (Chronic) 12/2009 implant; PAD (peripheral artery disease) (Chronic) Pleural effusion, left (Chronic) S/P PTCA (percutaneous transluminal coronary angioplasty) (Chronic) HLD (hyperlipidemia) (Chronic) Ischemic cardiomyopathy (Chronic) Systolic CHF, chronic (Chronic) Atrial fibrillation (Chronic) AV Node RFA 07/11/2015 H/O atrioventricular chris ablation (Chronic ~07/11/15) Hospital Course and Treatment Imaging Results: RAD/Chest 1 View (Portable) IMPRESSION: Findings suggestive of a mild degree of CHF with bibasilar atelectasis and/or early infiltrates worse on the left side. Interpretation Summary Moderately dilated left ventricle. The estimated ejection fraction is 25 %. There are regional wall motion abnormalities as specified. Moderately dilated right ventricle. The left atrium is severely enlarged. The right atrium is mildly enlarged. Mild (1+) mitral valve insufficiency. Mild (1+) tricuspid valve insufficiency. Right ventricular systolic pressure estimated to be 67 mmHg. Severe pulmonary hypertension. The inferior vena cava is dilated In comparison to echo report dated 08/16/2016, LV function has remained the same. RVSP has increased fro 32 to 67 mm Hg. US/Gallbladder IMPRESSION: 1. Enlarged liver without focal mass. 2. Minimal ascites. 3. Right pleural effusion. 4. Otherwise normal postcholecystectomy right upper quadrant ultrasound. Consultations 09/06/18 16:43 Consult: Onc/Wound/plant physiology teacher Routine Comment: Operations: None Procedures: 2-D Echocardiogram Summary of Care Provided: Hospital course: The patient is a 57 year old M with past medical history as above who presented to the emergency room from [facility] with complaints of altered mental status and hypotension, increased lower extremity edema and lethargy. He appeared to have a chest x-ray consistent with congestive heart failure, elevated BNP mild anemia with Hgb 9.8, normal TSH, increased bilirubin, BP of 100/68, and with good saturations on room air. He was admitted to the PCU for acute congestive heart failure exacerbation with associated acute metabolic encephalopathy. He was treated with IV Lasix and responded well to therapy. A repeat echocardiogram was obtained which demonstrated EF of 25%, 1+ MVI, 1+ TBI, severe pulmonary hypertension with RVSP of 67 mmHg. An ultrasound of his liver was obtained which demonstrated surgical absence of gallbladder, enlarged liver without focal mass, minimal ascites, right pleural effusion. The patient did not require increased oxygen while here. His lower extremity edema resolved with IV Lasix. He was converted back to oral Lasix and discharged back to [facility] in stable condition. He will need to follow-up with his PCP in 2 weeks, he will need to follow-up with a college sports assistant given the change in his right ventricular systolic pressure in 2 weeks. He should continue prior wound care and vascular follow-up as previously directed. This patient was seen by Delfin Kapoor PA-C under the supervision of Doctor Rosario. [] - Physical Exam General: Alert, Oriented x3, Cooperative HEENT: Atraumatic, PERRLA, EOMI, Normocephalic Neck: Supple, No JVD, Negative Carotid Bruits Lungs: Clear to auscultation, Normal air movement Cardiovascular: Regular rate, No murmurs Abdomen: Bowel Sounds Present, Soft, Non Tender Extremities: No edema, Capillary Refill Less than 3 Seconds Skin: No rashes, No breakdown Musculoskeletal: No Tenderness to Palpation of Joints or Extremities Neurological: Cranial nerves II-XII grossly intact Psych/Mental Status: Normal Affect, Appropriate Vital Signs Temp Pulse Resp BP Pulse Ox 98.9 F 71 18 105/78 99 09/09/18 09:19 09/09/18 09:19 09/09/18 09:19 09/09/18 09:19 09/09/18 09:19 Oxygen Delivery Method Room Air Weight: 240 lb 8.389 oz Body Mass Index (BMI) 38.9 Finger Stick Blood Glucose 87 Intake and Output for Last 24 Hours 09/07/18 09/08/18 09/09/18 23:59 23:59 23:59 Intake Total 1060 / 1060 1020 / 1020 237 / 237 Output Total 1750 / 1750 1575 / 1575 350 / 350 Balance -690 / -690 -555 / -555 -113 / -113 Laboratory Tests Past 24 Hrs 09/09/18 09/09/18 05:40 05:40 PT 30.4 H INR 2.9 Sodium 138 Potassium 4.0 Chloride 102 Carbon Dioxide 27.0 Anion Gap 9 BUN 34 H Creatinine 1.43 H Estim Creat Clear Calc 48.87 Est GFR (MDRD) Af Amer 66 Est GFR (MDRD) Non-Af 54 L BUN/Creatinine Ratio 23.8 H Glucose 142 H Calcium 8.5 Total Bilirubin 1.50 H AST 46 H ALT 43 Alkaline Phosphatase 323 H Total Protein 6.7 Albumin 3.1 L Globulin 3.6 Albumin/Globulin Ratio 0.9 POC Glucose 09/09/18 09/09/18 09/08/18 11:43 06:47 22:57 POC Glucose 150 H 127 H 154 H 09/08/18 16:33 POC Glucose 189 H Discharge Diet: Low fat/ Low Cholesterol, 1800 Calorie Control Diet, 2000 mg Sodium Diet Discharge Activity: Return to Normal Activity Home Medications: Medications to take at Discharge Aspirin [Aspirin EC] 81 mg PO DAILY 05/12/18 atorvastatin 40 mg tablet 40 mg PO QHS #30 tab 08/04/18 spironolactone 25 mg tablet 25 mg PO DAILY #30 tab 08/04/18 Argin/Glut/Cahmb/Collag/Mv-Min [Tomás Packet] 1 each PO BID 09/06/18 Carvedilol [Coreg] 3.125 mg PO BID 09/06/18 Clopidogrel Bisulfate [Plavix] 75 mg PO DAILY 09/06/18 Famotidine 40 mg PO DAILY 09/06/18 Insulin Lispro [Humalog Kwikpen] 16 unit SQ TIDCM 09/06/18 Lisinopril [Zestril] 2.5 mg PO DAILY 09/06/18 Mineral Oil/Petrolatum,White [Eucerin] 1 applic TOPICAL BID PRN PRN 09/06/18 Tamsulosin HCl 0.4 mg PO QHS 09/06/18 Warfarin Sodium [Coumadin] 4 mg PO QHS 09/06/18 Ferrous Sulfate 325 mg PO 1200,1700 tablet 09/09/18 Furosemide [Lasix] 40 mg PO BID #0 09/09/18 Gabapentin [Neurontin] 100 mg PO TIDCM capsule 09/09/18 Ipratropium/Albuterol Sulfate [Duoneb] 3 ml INHALATION Q4H.RT PRN ampul.neb 09/09/18 Magnesium Hydroxide [Milk Of Magnesia] 30 ml PO DAILY PRN udc 09/09/18 Psyllium [Metamucil] 1 packet PO DAILY PRN PRN packet 09/09/18 Primary Care Physician: Osei Ely MD [Primary Care Provider] - Please follow up with your Primary Care Physician in: 2 weeks Please Follow Up With: Keven Willingham MD When: 2 weeks Disposition: [facility] facility Minutes spent on discharge:: 35 Patient Condition:: Stable Medical Necessity - Tobacco Use Smoking Status: Never smoker Tobacco Use: Non-smoker Meaningful Use Info Meaningful Use Diagnoses (Choose all that apply): CHF - CHF LEONIDES/ARB ordered at discharge?: Yes Documented LVEF (%): 25
--- NOTE | 2018-09-09 13:56 | CASEMGMT ---
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 SW called [facility] and notified Jacqueline. Orders were already faxed. Plan: d/c back to [facility] under skilled level of care. Magalys BLAIR MSW
--- NOTE | 2018-09-09 14:18 | NURSING ---
report called to Sindhu collins RN.
== END 2018-09-09 11:19 | disposition skilled nursing facility (03) ==
LOC: ED 12:42 → PCU 14:35
PROVIDERS: Nurse Practitioner Family; Admitting Provider Internal Medicine; Emergency Provider Emergency Medicine; Family Provider Family Medicine; PCP Family Medicine; Referring Provider Internal Medicine; Visit Provider Internal Medicine
DX: I13.0 Hypertensive heart and chronic kidney disease with heart failure and stage 1 through stage 4 chronic kidney disease, or unspecified chronic kidney disease (principal); I50.23 Acute on chronic systolic (congestive) heart failure; N18.3 Chronic kidney disease, stage 3 (moderate); E11.22 Type 2 diabetes mellitus with diabetic chronic kidney disease; D50.9 Iron deficiency anemia, unspecified; I25.5 Ischemic cardiomyopathy; N40.0 Benign prostatic hyperplasia without lower urinary tract symptoms; I25.10 Atherosclerotic heart disease of native coronary artery without angina pectoris; G93.41 Metabolic encephalopathy; I27.20 Pulmonary hypertension, unspecified; E66.01 Morbid (severe) obesity due to excess calories; E11.51 Type 2 diabetes mellitus with diabetic peripheral angiopathy without gangrene; J44.9 Chronic obstructive pulmonary disease, unspecified; K21.9 Gastro-esophageal reflux disease without esophagitis; E78.5 Hyperlipidemia, unspecified; I48.2 Chronic atrial fibrillation; L97.529 Non-pressure chronic ulcer of other part of left foot with unspecified severity; G47.33 Obstructive sleep apnea (adult) (pediatric); E11.622 Type 2 diabetes mellitus with other skin ulcer; Z66 Do not resuscitate; Z68.41 Body mass index [BMI] 40.0-44.9, adult; Z95.5 Presence of coronary angioplasty implant and graft; Z95.810 Presence of automatic (implantable) cardiac defibrillator; Z71.3 Dietary counseling and surveillance; Z79.899 Other long term (current) drug therapy; Z79.82 Long term (current) use of aspirin; Z79.4 Long term (current) use of insulin; Z79.02 Long term (current) use of antithrombotics/antiplatelets; Z79.01 Long term (current) use of anticoagulants; I08.1 Rheumatic disorders of both mitral and tricuspid valves
CPT/HCPCS: 36415; 71045; 76705; 80048; 80053; 80061; 80076; 81001; 82728; 82962; 83540; 83550; 83880; 84443; 84484; 85025; 85027; 85610; 85730; 93306; 96374; 96375; 96376; 97162; 97165; 97530; 97535; 97802; 99218; 99285; Q9957; A4216; G0378; J1940; J2405

== ENCOUNTER 2018-09-30 12:08 | Inpatient (IN) | payer MEDICARE, SELFPAY ==
[2018-09-30] VITALS (22 sets, daily range): BP systolic 82–128; BP diastolic 53–98; PULSE 80–96; RESP 12–28; TEMP 36.4–36.6; O2SAT 87–100; BMI 40.1; BMI 36.0; BMI 39.1
[2018-09-30 12:40] LABS: Bedside Glucose 155 mg/dL (70-110)
--- NOTE | 2018-09-30 13:04 | RAD_ITS ---
STUDY: X-RAY CHEST REASON FOR EXAM: Male, 57 years old. Weakness and headaches. Difficulty breathing. TECHNIQUE: AP and lateral views of the chest. COMPARISON: Comparison is made with prior study dated September 06, 2018. FINDINGS: EKG electrodes are seen. Is evidence of vascular congestion and CHF. Increased markings at the lung bases worse on the left side suggestive of atelectasis. Small bilateral pleural effusions. There is mild cardiac enlargement. A right-sided dual-chamber pacemaker is seen. Normal mediastinum and katrina. Normal visualized pulmonary arteries. Normal visualized aortic arch and descending thoracic aorta. There is demineralization of the osseous structures. Normal visualized ribs, clavicles, and shoulders. There is no demonstrated abnormality of the visualized soft tissue structures of the upper abdomen. RAD/Chest PA and Lateral IMPRESSION: Findings in keeping with CHF. Bibasilar atelectasis and small bilateral effusions. Electronically Signed: Mann Prater, at 13:50 EDT , Service support ,
--- NOTE | 2018-09-30 13:04 | EKG12_ITS ---
Test Reason : SOB/WEAKNESS Blood Pressure : / mmHG Vent. Rate : 080 BPM Atrial Rate : 063 BPM P-R Int : 000 ms QRS Dur : 170 ms QT Int : 472 ms P-R-T Axes : 000 -50 074 degrees QTc Int : 544 ms Ventricular-paced rhythm Biventricular pacemaker detected Abnormal ECG When compared with ECG of 06-SEP-2018 14:34, No significant change was found Confirmed by ALECIA NATION ([id number]), make up editor CHRISTIAN HUIZAR ([id number]) on 10/11/2018 4:50:47 PM Referred By: Mildred Terry Confirmed By:JASON NATION
[2018-09-30 13:13] LABS: Absolute Lymphocyte Count 1.02 X10^3/ul (0.83-4.51); Absolute Neutrophil Count 4.1 X10^3/uL (2.0-7.7); Basophil# 0.01 X10^3/uL; Basophil% 0.2 % (0-1); Eosinophil# 0.05 X10^3/uL; Eosinophils% 0.9 % (0-5); Hematocrit 36.6 % (40-54); Hemoglobin 10.9 g/dl (13.0-16.5); Lymphocyte # 1.02 X10^3/ul (4.0); Lymphocyte % 18.6 % (19-41); Mean Corp Hgb Conc 29.8 g/gl (32-36); Mean Corpuscular Hgb 25.1 pg (27.0-32.0); Mean Corpuscular Volume 84.1 fL (80-94); Mean Platelet Vol. 9.7 fl (6.2-12.0); Monocyte# 0.32 X10^3/uL; Monocyte% 5.8 % (0-10); Neutrophil # 4.09 X10^3/uL (2.7-7.7); Neutrophil % 74.5 % (47-70); Platelet Count 162 K/mm3 (150-450); RBC Distribution Width CV 19.5 % (11.6-14.6); RBC Distribution Width SD 58.7 fl (35.1-43.9); Red Blood Count 4.35 M/mm3 (4.6-6.2); White Blood Count 5.5 K/mm3 (4.4-11.0)
[2018-09-30 13:14] LABS: POSITIVE COUNT NO; POSITIVE DIFFERENTIAL NO; POSITIVE MORPHOLOGY NO
[2018-09-30 13:25] LABS: Anion Gap 6 (5-15); BUN 41 mg/dL (7-18); BUN/Creat Ratio 26.6 RATIO (10-20); Calcium,Total 8.3 mg/dL (8.5-10.1); Chloride 105 mmol/L (98-107); Creatinine, Serum 1.54 mg/dL (0.70-1.30); EST Glomerular Filtration Rate 50 mL/min (>60); Est Glom Filt Rate - Afr Amer 60 mL/min (>60); Estimated Creatinine Clearance 52.44 ml/min; Glucose 153 mg/dL (74-106); Potassium 4.2 mmol/L (3.5-5.1); Sodium Level 140 mmol/L (136-145)
--- NOTE | 2018-09-30 13:29 | ED.VISSUMM ---
- ER Visit Summary Date of Service: 09/30/18 Chief Complaint: Increased congestive heart failure History of Present Illness: The patient is a 57 M who presents with increasing congestive heart failure that was noticed today. Patient states he was sent from Dr. Willingham's office for evaluation of congestive heart failure. Patient admits to some increased swelling in his legs. Patient also admits to some shortness of breath that is worse with any exertion. Patient does admit to some pain in his chest. Patient also admits to a headache. Patient admits to some upper respiratory congestion and subjective chills. Patient states his breathing is also worse with laying flat. Physical Examination: Vital signs are stable. Patient is afebrile. Patient is in no acute distress. Oral mucosa is pink and moist. Neck is supple. Trachea is midline. There is no JVD noted. Heart was regular rate and rhythm. Lungs show bibasilar rales. Abdomen is soft. Bowel sounds are normal. There is no tenderness. There is no guarding noted. Skin is warm dry. There is 1+ pitting edema of the lower extremities. Cranial nerves II through XII are intact. There are no focal motor or sensory deficits noted. The remaining physical exam is within normal limits. Test Results: EKG showed paced rhythm with a rate of 80. There is a left bundle branch block pattern noted. This was unchanged compared to previous EKG dated 09/06/2018. CBC was within normal limits with the exception of a mild anemia with a hemoglobin of 10.9. Basic metabolic profile showed an elevated creatinine 1.54 and a BUN of 41. BNP was elevated at 446.7. This is slightly increased compared to previous results. Chest x-ray shows evidence of congestive heart failure. Emergency Department Course and Treatment: Patient's blood pressure remained low here in the emergency department. Due to the low blood pressure, Lasix and nitroglycerin paste were not ordered at this time. Patient was started on dopamine IV drip. Case was discussed with Dr. Willingham. He recommended stopping the dopamine. He will see the patient in consultation in the hospital. While here in the emergency department, the patient stated that his breathing was getting worse. Patient was started on BiPAP at that time. Case was discussed with Dr. Terry. She will admit the patient to the intensive care unit. Disposition: Admit to ICU Impression: Congestive heart failure This note was generated with Dragon dictation software. It may contain incorrect words, spelling, and punctuation that were not noted in review of the chart prior to signing ED Disposition - Plan for ED Patient: Disposition: Acute Care Hospital [facility] Diagnosis: Congestive heart failure Referrals: Allen Motta MD [Primary Care Provider] -
[2018-09-30 13:39] LABS: BNP,B-Type NATRIURETIC PEPTIDE 446.7 pg/mL (0-100)
--- NOTE | 2018-09-30 14:05 | ED.RN ---
DR. MENJIVAR MADE AWARE OF BP.
[2018-09-30] MEDS: DOPamine IV 800 MG/250 ML IV.SOLN. 10.078 MG CONT INF (14:22)
--- NOTE | 2018-09-30 15:37 | PCM.HP.STD ---
History of Present Illness Date of Admission: 09/30/18 Chief Complaint: shortness of breath The patient is a 57 year old M with an extensive PMH as listed. He was admitted through the ED with a complaitn of SOB. He has a history of HFrEF with EF of 25% and with ICD in place. He is not very compliant with his meds. He complained of SOB and LE swelling for the past 2 days. Symptoms were not improving and he had associated shortness of breath which was worsening with associated orthopnea so he decided to go to his powder guard office today. His powder guard sent him to the ER as he was found to be in heart failure for admission. Patient admits to associated PND as well. He was recently admitted and discharged a few weeks ago in August for similar condition. In the ED, he was initially found to be hypotensive with blood pressure systolic in the 80s. He was therefore started on dopamine drip but this was subsequently stopped per his powder guard. He was noted to be saturating at 87% on 5 L of oxygen so was started on BiPAP. Chemistry was significant for creatinine of 1.54 and BNP was 446.7. Initial troponin was negative. CBC showed no significant abnormalities. He has been admitted to the ICU to be managed for acute hypoxic respiratory failure due to acute systolic heart failure exacerbation. 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 coronary artery of [place] heart without angina pectoris (Chronic) PCI-EVAN-Mid LAD w/ 2.5 x 25 mm Promus and PCI-EVAN-D1 w/ 2.5 x 23 mm Promus 05/29/2009 Ischemic cardiomyopathy (Chronic) Medical History: Medical History (Last Reviewed 09/30/18 @ 11:55 by Keven Willingham MD) Chronic kidney disease, stage 3 (Chronic) N18.3 Secondary 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 (Chronic) I27.21 Old anterolateral wall myocardial infarction (Chronic) I25.2 Chronic atrial fibrillation (Chronic) I48.2 Acute on chronic systolic (congestive) heart failure (Chronic) I50.23 Hyperlipidemia (Chronic) E78.5 Essential (primary) hypertension (Chronic) I10 Atherosclerosis of [place] coronary artery of [place] heart without angina pectoris (Chronic) I25.10 PCI-EVAN-Mid LAD w/ 2.5 x 25 mm Promus and PCI-EVAN-D1 w/ 2.5 x 23 mm Promus 05/29/2009 Ischemic cardiomyopathy (Chronic) I25.5 Non-healing ulcer of lower extremity L97.909 BPH (benign prostatic hyperplasia) N40.0 COPD (chronic obstructive pulmonary disease) J44.9 GERD (gastroesophageal reflux disease) K21.9 LV (left ventricular) mural thrombus I51.3 Obesity E66.9 Obstructive sleep apnea G47.33 Peripheral vascular occlusive disease I73.9 Type 2 diabetes mellitus E11.9 Pleural effusion, left (Resolved) J90 Allergies tramadol Allergy (Verified 09/30/18 12:13) Hives Penicillins Adverse Reaction (Verified 09/30/18 12:13) Nausea Home Medications: Ambulatory Orders Medication Instructions Recorded Acetaminophen [Tylenol] 650 tab PO Q4H PRN PRN 09/30/18 Argin/Glut/Cahmb/Collag/Mv-Min 1 each PO BID 09/30/18 [Tomás Packet] Aspirin [Aspirin, Baby] 81 mg PO DAILY@0800 09/30/18 Atorvastatin Calcium [Lipitor] 40 mg PO QHS 09/30/18 Capsaicin 1 applic TP QHS 09/30/18 Carvedilol 3.125 tab PO BID 09/30/18 Clopidogrel Bisulfate [Plavix] 75 mg PO DAILY 09/30/18 Famotidine 40 mg PO DAILY 09/30/18 Ferrous Sulfate [Ferosul] 325 mg PO BID 09/30/18 Furosemide [Lasix] 80 mg PO BIDLX 09/30/18 Gabapentin [Neurontin] 100 mg PO TIDCM 09/30/18 Insulin Lispro [Humalog] 16 unit SQ TIDCM 09/30/18 Mineral Oil/Petrolatum,White 1 applic TOPICAL BID PRN 09/30/18 [Eucerin] Nitroglycerin [Nitrolingual [place]] 0.4 mg SUBLINGUAL PRN PRN 09/30/18 Sacubitril/Valsartan 24/26 mg 1 each PO BID 09/30/18 [Entresto 24 mg-26 mg Tablet] Spironolactone 25 mg PO DAILY 09/30/18 Tamsulosin HCl [Flomax] 0.4 mg PO QHS 09/30/18 Warfarin Sodium [Coumadin] 4 mg PO QHS 09/30/18 Surgical History: Surgical History (Last Reviewed 09/30/18 @ 11:55 by Keven Willingham MD) History of coronary artery stent placement (Resolved) Onset Date: 05/29/09 Z95.5 PCI-EVAN-Mid LAD w/ 2.5 x 25 mm Promus and PCI-EVAN-D1 w/ 2.5 x 23 mm Promus 05/29/2009 ICD (implantable cardioverter-defibrillator), biventricular, in situ (Chronic) Onset Date: 07/11/15 Z95.810 History of hdpdg-rzhgo-bjslghf bypass Z95.828 Hx of atrioventricular node ablation Onset Date: 07/11/15 Z98.890 History of cardiac pacemaker Z95.0 History of cholecystectomy Z98.890, Z90.49 Surgical History: angioplasty, cholecystectomy, pacemaker implantation, - Psychiatric History: No pertinent psych hx Lives: [facility] Smoking Status: Former smoker Alcohol: None Drugs: None - *Family History Paternal Family History: Family History (Last Reviewed 09/30/18 @ 11:55 by Keven Willingham MD) Father Hypertension CAD (coronary artery disease) Sister Cancer History Items: Heart Disease - CAD; at approximately 45 years of age Maternal Family History: Family History (Last Reviewed 09/30/18 @ 11:55 by Keven Willingham MD) Father Hypertension CAD (coronary artery disease) Sister Cancer History Items: Cancer - lung cancer Review of Systems Constitutional: Denies: Chills, Fever, Weight Change Eyes: Denies: Blurred vision HEENT: Denies: Head Aches, Sinus Congestion, Sinus Drainage Cardiovascular: Reports: Edema, Orthopnea, Paroxysmal Noc. Dyspnea. Denies: Chest Pain, Palpitations, Syncope Respiratory: Reports: Shortness of Breath, Shortness of breath at rest, Shortness of breath upon exertion. Denies: Cough, Sputum production Gastrointestinal: Denies: Abdominal Pain, Nausea, Vomiting Genitourinary: Denies: Dysuria Musculoskeletal: Denies: Joint Pain, Joint Tenderness Skin: Denies: Rash, Wounds Neurological: Denies: Numbness, Tingling, Focal weakness Psychiatric: Denies: Anxiety, Depression, Homicidal Ideations, Suicidal Ideations Hematologic/ Lymphatic: Denies: Easy Bruising, Easy Bleeding VTE Information - Inpt Only VTE Present on Admission: No VTE Pharm Prophylaxis ordered?: Yes Patient Problems: Active and Suspected Problems (Last Reviewed 09/30/18 @ 11:55 by Keven Willingham MD) Congestive heart failure (Acute) - Physical Exam General: Alert, - - very dyspneic. on BIPAP HEENT: Atraumatic, PERRLA, EOMI, Normocephalic Oral: Dry Mucosa Neck: Supple, No JVD, Negative Carotid Bruits Lungs: - - coarse crackles in all lung mancuso bilaterally, on BIPAP. Sitting fully propped up in bed Cardiovascular: Regular rate, Regular Rhythm, Normal S1, Normal S2, No murmurs Abdomen: Bowel Sounds Present, Soft, Non Tender, Non-Distended, No Hepato-splenomegaly Extremities: Edema - bilateral 2+ pitting pedal edema Skin: No rashes, No breakdown, - - Left foot in LEONIDES wrap Musculoskeletal: No Tenderness to Palpation of Joints or Extremities Lymphatic: No Cervical, Supraclavicular, or Inguinal Adenopathy Neurological: Cranial nerves II-XII grossly intact, Neuro grossly intact Psych/Mental Status: Anxious, Alert and oriented to time, place, person, mood and affect Vital Signs Temp Pulse Resp BP Pulse Ox 97.9 F 80 20 H 128/98 H 87 09/30/18 12:11 09/30/18 15:06 09/30/18 15:06 09/30/18 15:06 09/30/18 15:06 Oxygen Flow Rate (L/min) 5 Oxygen Delivery Method Nasal Cannula Weight: 237 lb Body Mass Index (BMI) 36.0 Finger Stick Blood Glucose 87 Laboratory Tests Past 24 Hrs 09/30/18 09/30/18 09/30/18 12:54 12:54 12:54 WBC 5.5 RBC 4.35 L Hgb 10.9 L Hct 36.6 L MCV 84.1 MCH 25.1 L MCHC 29.8 L RDW 19.5 H RDW Differential 58.7 H Plt Count 162 MPV 9.7 Immature Gran % (Auto) 0.000 Neut % (Auto) 74.5 H Lymph % (Auto) 18.6 L [place] % (Auto) 5.8 Eos % (Auto) 0.9 Baso % (Auto) 0.2 Absolute Neuts (auto) 4.1 Absolute Lymphs (auto) 1.02 Total Counted Not Reportable Sodium 140 Potassium 4.2 Chloride 105 Carbon Dioxide 29.0 Anion Gap 6 BUN 41 H Creatinine 1.54 H Estim Creat Clear Calc 52.44 Est GFR (MDRD) Af Amer 60 Est GFR (MDRD) Non-Af 50 L BUN/Creatinine Ratio 26.6 H Glucose 153 H Calcium 8.3 L Troponin I < 0.015 B-Natriuretic Peptide 446.7 H POC Glucose 09/30/18 12:35 POC Glucose 155 H Diagnostic Data Chest X-Ray 09/30/18 13:04 IMPRESSION: Findings in keeping with CHF. Bibasilar atelectasis and small bilateral effusions. Electronically Signed: Mann Prater, at 13:50 EDT , Service support , Assessment/Plan All Active Problems (Last Reviewed 09/30/18 @ 11:55 by Keven Willingham MD) Congestive heart failure (Acute) History of coronary artery stent placement (Resolved 05/29/09) Altered mental status (Resolved) Pleural effusion, left (Resolved) Pneumonia (Resolved) 57 y/o patient admitted with a complaint of shortness of breath 1. Acute hypoxic respiratory failure due to acute on chronic HFrEF BNP is ~ 447 CXR shows pulmonary edema with small bilateral pleural effusions now on BIPAP, as he was still hypoxic even on 5L of oxygen admit to ICU continue BIPAP, will need to be intubated if he remains hypoxic on bipap stat ABG: pH of 7.31, with pO 2 of 101 and pCO2 of 50.3; indicating mild respiratory acidosis due to PCO2 retention. bicarb is 21.2. consult pocket and pulley machine operator and cardiology continue BIPAP. check ABG in 2 hours. 2. Acute on chronic HFrEF has known EF of 25% per echo, with ICD in place will start IV lasix drip monitor input and output fluid restriction to 1500cc daily daily weight check continue Entresto and spironolactone 3. CAD and ischemic cardiomyopathy s/p AICD. EF is 25% per echo in 09/10, with moderately dilated LV and regional wall motion abnormalities on aspirin, plavix, carvedilol and entresto. 4. paroxysmal afib: rate and rhythm controlled. ON metoprolol and coumadin. INR is pending. 5. Diabetes mellitus: on insulin lantus and lispro. ISS. Accuchecks ACHS 6. CAD: on aspirin, plavix and atorvastatin 7. Hyperlipidemia: on atorvastatin 8. CKD 3: Cr is 1.5. This is around his baseline. Will monitor DVT prophylaxis: on coumadin. INR is pending Code status: full code Patient counseled extensively about different types of CODE STATUS including full code, DNR CCA and DNR CCA. Patient initially stated that [facility] stated he wanted to be DNR CCA and did not want intubation all CPR. I explained to patient that his respiratory status very tenuous and if he deteriorated in the next up would be intubation. At this point patient refused intubation. I informed him that if his respiratory status decompensated cannot be managed with BiPAP and he refused intubation he would likely . At this point patient stated that that he would be willing to try intubation but only for short while to see if it works. Also willing to try CPR if needed for short well. Patient's CODE STATUS is therefore full code. Total [id number]-gu-[id number] time 18 minutes. Total critical care time: 55 mins Code Visit Inpatient E&M: 97136 Init Hosp L3 Procedures: 18530 Critial Care 1st Hr - advanced care planning [id number]
--- NOTE | 2018-09-30 15:43 | HP.PCM_ITS ---
History of Present Illness Date of Admission: 09/30/18 Chief Complaint: shortness of breath The patient is a 57 year old M with an extensive PMH as listed. He was admitted through the ED with a complaitn of SOB. He has a history of HFrEF with EF of 25% and with ICD in place. He is not very compliant with his meds. He complained of SOB and LE swelling for the past 2 days. Symptoms were not improving and he had associated shortness of breath which was worsening with associated orthopnea so he decided to go to his foundation digger office today. His foundation digger sent him to the ER as he was found to be in heart failure for admission. Patient admits to associated PND as well. He was recently admitted and discharged a few weeks ago in August for similar condition. In the ED, he was initially found to be hypotensive with blood pressure systolic in the 80s. He was therefore started on dopamine drip but this was subsequently stopped per his foundation digger. He was noted to be saturating at 87% on 5 L of oxygen so was started on BiPAP. Chemistry was significant for creatinine of 1.54 and BNP was 446.7. Initial troponin was negative. CBC showed no significant abnormalities. He has been admitted to the ICU to be managed for acute hypoxic respiratory failure due to acute systolic heart failure exacerbation. 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) use of anticoagulants (Chronic) Old anterolateral wall myocardial infarction (Chronic) Chronic atrial fibrillation (Chronic) Acute on chronic systolic (congestive) heart failure (Chronic) Hyperlipidemia (Chronic) Essential (primary) hypertension (Chronic) ICD (implantable cardioverter-defibrillator), biventricular, in situ (Chronic 07/11/15) Atherosclerosis of [place] coronary artery of [place] heart without angina pectoris (Chronic) PCI-EVAN-Mid LAD w/ 2.5 x 25 mm Promus and PCI-EVAN-D1 w/ 2.5 x 23 mm Promus 05/29/2009 Ischemic cardiomyopathy (Chronic) Medical History: Medical History (Last Reviewed 09/30/18 @ 11:55 by Keven Willingham MD) Chronic kidney disease, stage 3 (Chronic) N18.3 Secondary 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 (Chronic) I27.21 Old anterolateral wall myocardial infarction (Chronic) I25.2 Chronic atrial fibrillation (Chronic) I48.2 Acute on chronic systolic (congestive) heart failure (Chronic) I50.23 Hyperlipidemia (Chronic) E78.5 Essential (primary) hypertension (Chronic) I10 Atherosclerosis of [place] coronary artery of [place] heart without angina pectoris (Chronic) I25.10 PCI-EVAN-Mid LAD w/ 2.5 x 25 mm Promus and PCI-EVAN-D1 w/ 2.5 x 23 mm Promus 05/29/2009 Ischemic cardiomyopathy (Chronic) I25.5 Non-healing ulcer of lower extremity L97.909 BPH (benign prostatic hyperplasia) N40.0 COPD (chronic obstructive pulmonary disease) J44.9 GERD (gastroesophageal reflux disease) K21.9 LV (left ventricular) mural thrombus I51.3 Obesity E66.9 Obstructive sleep apnea G47.33 Peripheral vascular occlusive disease I73.9 Type 2 diabetes mellitus E11.9 Pleural effusion, left (Resolved) J90 Allergies tramadol Allergy (Verified 09/30/18 12:13) Hives Penicillins Adverse Reaction (Verified 09/30/18 12:13) Nausea Home Medications: Ambulatory Orders Medication Instructions Recorded Acetaminophen [Tylenol] 650 tab PO Q4H PRN PRN 09/30/18 Argin/Glut/Cahmb/Collag/Mv-Min 1 each PO BID 09/30/18 [Tomás Packet] Aspirin [Aspirin, Baby] 81 mg PO DAILY@0800 09/30/18 Atorvastatin Calcium [Lipitor] 40 mg PO QHS 09/30/18 Capsaicin 1 applic TP QHS 09/30/18 Carvedilol 3.125 tab PO BID 09/30/18 Clopidogrel Bisulfate [Plavix] 75 mg PO DAILY 09/30/18 Famotidine 40 mg PO DAILY 09/30/18 Ferrous Sulfate [Ferosul] 325 mg PO BID 09/30/18 Furosemide [Lasix] 80 mg PO BIDLX 09/30/18 Gabapentin [Neurontin] 100 mg PO TIDCM 09/30/18 Insulin Lispro [Humalog] 16 unit SQ TIDCM 09/30/18 Mineral Oil/Petrolatum,White 1 applic TOPICAL BID PRN 09/30/18 [Eucerin] Nitroglycerin [Nitrolingual [place]] 0.4 mg SUBLINGUAL PRN PRN 09/30/18 Sacubitril/Valsartan 24/26 mg 1 each PO BID 09/30/18 [Entresto 24 mg-26 mg Tablet] Spironolactone 25 mg PO DAILY 09/30/18 Tamsulosin HCl [Flomax] 0.4 mg PO QHS 09/30/18 Warfarin Sodium [Coumadin] 4 mg PO QHS 09/30/18 Surgical History: Surgical History (Last Reviewed 09/30/18 @ 11:55 by Keven Willingham MD) History of coronary artery stent placement (Resolved) Onset Date: 05/29/09 Z95.5 PCI-EVAN-Mid LAD w/ 2.5 x 25 mm Promus and PCI-EVAN-D1 w/ 2.5 x 23 mm Promus 05/29/2009 ICD (implantable cardioverter-defibrillator), biventricular, in situ (Chronic) Onset Date: 07/11/15 Z95.810 History of kgubi-hztho-joufdmy bypass Z95.828 Hx of atrioventricular node ablation Onset Date: 07/11/15 Z98.890 History of cardiac pacemaker Z95.0 History of cholecystectomy Z98.890, Z90.49 Surgical History: angioplasty, cholecystectomy, pacemaker implantation, - Psychiatric History: No pertinent psych hx Lives: Intermediate Smoking Status: Former smoker Alcohol: None Drugs: None - *Family History Paternal Family History: Family History (Last Reviewed 09/30/18 @ 11:55 by Keven Willingham MD) Father Hypertension CAD (coronary artery disease) Sister Cancer History Items: Heart Disease - CAD; at approximately 45 years of age Maternal Family History: Family History (Last Reviewed 09/30/18 @ 11:55 by Keven Willingham MD) Father Hypertension CAD (coronary artery disease) Sister Cancer History Items: Cancer - lung cancer Review of Systems Constitutional: Denies: Chills, Fever, Weight Change Eyes: Denies: Blurred vision HEENT: Denies: Head Aches, Sinus Congestion, Sinus Drainage Cardiovascular: Reports: Edema, Orthopnea, Paroxysmal Noc. Dyspnea. Denies: Chest Pain, Palpitations, Syncope Respiratory: Reports: Shortness of Breath, Shortness of breath at rest, Shortness of breath upon exertion. Denies: Cough, Sputum production Gastrointestinal: Denies: Abdominal Pain, Nausea, Vomiting Genitourinary: Denies: Dysuria Musculoskeletal: Denies: Joint Pain, Joint Tenderness Skin: Denies: Rash, Wounds Neurological: Denies: Numbness, Tingling, Focal weakness Psychiatric: Denies: Anxiety, Depression, Homicidal Ideations, Suicidal Ideations Hematologic/ Lymphatic: Denies: Easy Bruising, Easy Bleeding VTE Information - Inpt Only VTE Present on Admission: No VTE Pharm Prophylaxis ordered?: Yes Patient Problems: Active and Suspected Problems (Last Reviewed 09/30/18 @ 11:55 by Keven Willingham MD) Congestive heart failure (Acute) - Physical Exam General: Alert, - - very dyspneic. on BIPAP HEENT: Atraumatic, PERRLA, EOMI, Normocephalic Oral: Dry Mucosa Neck: Supple, No JVD, Negative Carotid Bruits Lungs: - - coarse crackles in all lung mancuso bilaterally, on BIPAP. Sitting fully propped up in bed Cardiovascular: Regular rate, Regular Rhythm, Normal S1, Normal S2, No murmurs Abdomen: Bowel Sounds Present, Soft, Non Tender, Non-Distended, No Hepato- splenomegaly Extremities: Edema - bilateral 2+ pitting pedal edema Skin: No rashes, No breakdown, - - Left foot in LEONIDES wrap Musculoskeletal: No Tenderness to Palpation of Joints or Extremities Lymphatic: No Cervical, Supraclavicular, or Inguinal Adenopathy Neurological: Cranial nerves II-XII grossly intact, Neuro grossly intact Psych/Mental Status: Anxious, Alert and oriented to time, place, person, mood and affect Vital Signs Temp Pulse Resp BP Pulse Ox 97.9 F 80 20 H 128/98 H 87 09/30/18 12:11 09/30/18 15:06 09/30/18 15:06 09/30/18 15:06 09/30/18 15:06 Oxygen Flow Rate (L/min) 5 Oxygen Delivery Method Nasal Cannula Weight: 237 lb Body Mass Index (BMI) 36.0 Finger Stick Blood Glucose 87 Laboratory Tests Past 24 Hrs 09/30/18 09/30/18 09/30/18 12:54 12:54 12:54 WBC 5.5 RBC 4.35 L Hgb 10.9 L Hct 36.6 L MCV 84.1 MCH 25.1 L MCHC 29.8 L RDW 19.5 H RDW Differential 58.7 H Plt Count 162 MPV 9.7 Immature Gran % (Auto) 0.000 Neut % (Auto) 74.5 H Lymph % (Auto) 18.6 L Keith % (Auto) 5.8 Eos % (Auto) 0.9 Baso % (Auto) 0.2 Absolute Neuts (auto) 4.1 Absolute Lymphs (auto) 1.02 Total Counted Not Reportable Sodium 140 Potassium 4.2 Chloride 105 Carbon Dioxide 29.0 Anion Gap 6 BUN 41 H Creatinine 1.54 H Estim Creat Clear Calc 52.44 Est GFR (MDRD) Af Amer 60 Est GFR (MDRD) Non-Af 50 L BUN/Creatinine Ratio 26.6 H Glucose 153 H Calcium 8.3 L Troponin I < 0.015 B-Natriuretic Peptide 446.7 H POC Glucose 09/30/18 12:35 POC Glucose 155 H Diagnostic Data Chest X-Ray 09/30/18 13:04 IMPRESSION: Findings in keeping with CHF. Bibasilar atelectasis and small bilateral effusions. Electronically Signed: Mann Prater, at 13:50 EDT , Service support , Assessment/Plan All Active Problems (Last Reviewed 09/30/18 @ 11:55 by Keven Willingham MD) Congestive heart failure (Acute) History of coronary artery stent placement (Resolved 05/29/09) Altered mental status (Resolved) Pleural effusion, left (Resolved) Pneumonia (Resolved) 57 y/o patient admitted with a complaint of shortness of breath 1. Acute hypoxic respiratory failure due to acute on chronic HFrEF * BNP is ~ 447 * CXR shows pulmonary edema with small bilateral pleural effusions * now on BIPAP, as he was still hypoxic even on 5L of oxygen * admit to ICU * continue BIPAP, will need to be intubated if he remains hypoxic on bipap * stat ABG: pH of 7.31, with pO 2 of 101 and pCO2 of 50.3; indicating mild respiratory acidosis due to PCO2 retention. bicarb is 21.2. * consult babysitter and cardiology * continue BIPAP. check ABG in 2 hours. * 2. Acute on chronic HFrEF * has known EF of 25% per echo, with ICD in place * will start IV lasix drip * monitor input and output * fluid restriction to 1500cc daily * daily weight check * continue Entresto and spironolactone * 3. CAD and ischemic cardiomyopathy * s/p AICD. EF is 25% per echo in 09/10, with moderately dilated LV and regional wall motion abnormalities * on aspirin, plavix, carvedilol and entresto. * 4. paroxysmal afib: rate and rhythm controlled. ON metoprolol and coumadin. INR is pending. 5. Diabetes mellitus: on insulin lantus and lispro. ISS. Accuchecks ACHS 6. CAD: on aspirin, plavix and atorvastatin 7. Hyperlipidemia: on atorvastatin 8. CKD 3: Cr is 1.5. This is around his baseline. Will monitor DVT prophylaxis: on coumadin. INR is pending Code status: full code * Patient counseled extensively about different types of CODE STATUS including full code, DNR CCA and DNR CCA. Patient initially stated that he had signed papers in the custodial stated he wanted to be DNR CCA and did not want intubation all CPR. I explained to patient that his respiratory status very tenuous and if he deteriorated in the next up would be intubation. At this point patient refused intubation. I informed him that if his respiratory status decompensated cannot be managed with BiPAP and he refused intubation he would likely . At this point patient stated that that he would be willing to try intubation but only for short while to see if it works. Also willing to try CPR if needed for short well. Patient's CODE STATUS is therefore full code. * Total rjhe-pi-tchr time 18 minutes. * Total critical care time: 55 mins Code Visit Inpatient E&M: 56891 Init Hosp L3 Procedures: 41148 Critial Care 1st Hr - advanced care planning 99721
[2018-09-30 16:05] LABS: Base Excess -1 mmol/L (-2 to +2); Bicarbonate 25.2 mmol/L (22-26); Blood Gas Specimen Type ART; EPAP 8; FI02 60; IPAP 15; PO2 101 mmHG (75-100); RR 12; SITE L Brachial; SO2 97 % (95-99); Time Given 1551; Total Carbon Dioxide 27 mmol/L; pCO2 50.3 mmHg (35-45); pH 7.31 (7.35-7.45)
--- NOTE | 2018-09-30 16:08 | ED.RN ---
THIS NURSE TALKED TO DR ESPINOZA ON THE PHONE WHO STATED TO STOP PTS DOPAMINE
--- NOTE | 2018-09-30 17:00 | PCM.CONS.C ---
Reason for Consult Date of Consultation: 09/30/18 Reason for Consultation: Shortness of breath History of Present Illness: The patient is a 57 year old M [] : DAKOTAH LANE, is a 57 M who presented to the office today for a follow-up visit. He has a history of ischemic cardiomyopathy, coronary artery disease with stenting to the left anterior descending artery and proximal diagonal vessel in 2009. He also has a history of atrial fibrillation status post AV chris ablation and biventricular ICD placement. In addition he has hypertension and peripheral vascular disease. He continues to reside at [facility] for rehab for a lower extremity wound. He states his chest heaviness has resolved. He states feeling less energy than usual. He states feeling SOB for the last month that is worse when lying flat and exertion and it improves when sitting upright. Pt denies arm, jaw, or neck discomfort. His exercise tolerance is very minimal. Pt denies symptoms of palpitations, near syncopal or syncopal episodes. Pt denies claudication issues. Pt. denies fever, chills, blood in urine, myalgia, or unexplainable fatigue. He states lightheadedness and dizziness when walking and going to a standing position occasionally. He states bilateral lower extremity edema is improved, but has worsened in his upper thighs. He states PND and orthopnea nightly. He spends majority of his day sitting in a wheelchair. His physical exam here today demonstrates clear lung mancuso regular rate and rhythm and anasarca. Due to his physical condition in the office he was sent to the emergency room because it was felt that he had an exacerbation of congestive heart failure. His natruretic peptide was elevated and chest x-ray confirmed the above. He was started briefly on a dopamine drip by the emergency room physician which was subsequently discontinued. He apparently started getting more hypoxic requiring BiPAP treatment and was admitted by the hospitalist to the intensive care unit. Past Medical History Allergies/Adverse Reactions: Allergies tramadol Allergy (Verified 09/30/18 12:13) Hives Penicillins Adverse Reaction (Verified 09/30/18 12:13) Nausea Home Medications: Ambulatory Orders Medication Instructions Recorded Acetaminophen [Tylenol] 650 tab PO Q4H PRN PRN 09/30/18 Argin/Glut/Cahmb/Collag/Mv-Min 1 each PO BID 09/30/18 [Tomás Packet] Aspirin [Aspirin, Baby] 81 mg PO DAILY@0800 05/09/19 Atorvastatin Calcium [Lipitor] 40 mg PO QHS 09/30/18 Capsaicin 1 applic TP QHS 09/30/18 Carvedilol 3.125 tab PO BID 09/30/18 Clopidogrel Bisulfate [Plavix] 75 mg PO DAILY 09/30/18 Famotidine 40 mg PO DAILY 09/30/18 Ferrous Sulfate [Ferosul] 325 mg PO BID 09/30/18 Furosemide [Lasix] 80 mg PO BIDLX 09/30/18 Gabapentin [Neurontin] 100 mg PO TIDCM 09/30/18 Insulin Lispro [Humalog] 16 unit SQ TIDCM 09/30/18 Mineral Oil/Petrolatum,White 1 applic TOPICAL BID PRN 09/30/18 [Eucerin] Nitroglycerin [Nitrolingual [place]] 0.4 mg SUBLINGUAL PRN PRN 09/30/18 Sacubitril/Valsartan 24/26 mg 1 each PO BID 09/30/18 [Entresto 24 mg-26 mg Tablet] Spironolactone 25 mg PO DAILY 09/30/18 Tamsulosin HCl [Flomax] 0.4 mg PO QHS 09/30/18 Warfarin Sodium [Coumadin] 4 mg PO QHS 09/30/18 Past Medical History (Chronic Problems): Chronic Problems (Last Reviewed 09/30/18 @ 11:55 by Keven Willingham MD) Chronic kidney disease, stage 3 (Chronic) Secondary 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 (Chronic) halfway (current) use of anticoagulants (Chronic) Old anterolateral wall myocardial infarction (Chronic) Chronic atrial fibrillation (Chronic) Acute on chronic systolic (congestive) heart failure (Chronic) Hyperlipidemia (Chronic) Essential (primary) hypertension (Chronic) ICD (implantable cardioverter-defibrillator), biventricular, in situ (Chronic 07/11/15) Atherosclerosis of [place] coronary artery of [place] heart without angina pectoris (Chronic) PCI-EVAN-Mid LAD w/ 2.5 x 25 mm Promus and PCI-EVAN-D1 w/ 2.5 x 23 mm Promus 05/29/2009 Ischemic cardiomyopathy (Chronic) Surgical History: angioplasty, cholecystectomy, pacemaker implantation, - Psychiatric History: No pertinent psych hx - *Family History Paternal Family History: Family History (Last Reviewed 09/30/18 @ 11:55 by Keven Willingham MD) Father Hypertension CAD (coronary artery disease) Sister Cancer History Items: Heart Disease - CAD; at approximately 45 years of age Maternal Family History: Family History (Last Reviewed 09/30/18 @ 11:55 by Keven Willingham MD) Father Hypertension CAD (coronary artery disease) Sister Cancer History Items: Cancer - lung cancer Lives: [facility] Smoking Status: Former smoker Tobacco Use: Cigarettes Alcohol: None Drugs: None Review of Systems - Review of Systems General: Reports: Fatigue, Malaise. Denies: Fever, Night Sweats HEENT: Denies: Vision Change Cardiovascular: Reports: Shortness of Breath, Shortness of Breath at Rest, Shortness of Breath with Exertion, Peripheral Edema. Denies: Chest Discomfort, Orthopnea, PND, Palpitations, Lightheadedness, Dizziness, Near Syncope, Syncope Respiratory: Denies: Cough, Sputum Production, Hemoptysis Gastrointestinal: Reports: Abdominal Discomfort. Denies: Hematemesis, Hematochezia, Melena Genitourinary: Denies: Dysuria, Hematuria Muscoloskeletal: Reports: Leg Pain Skin: Denies: Rash Neurological: Reports: Dizziness Psychiatric: Denies: Anxiety Hematologic/ Lymphatic: Denies: Lymph Node Enlargement Subjectve: Middle-aged man in mild distress Objective: Vital Signs Temp Pulse Resp BP Pulse Ox 97.9 F 80 21 H 98/85 H 96 09/30/18 12:11 09/30/18 16:14 09/30/18 16:14 09/30/18 16:14 09/30/18 16:14 Oxygen Flow Rate (L/min) 5 Oxygen Delivery Method Bi-pap Weight: 235 lb Body Mass Index (BMI) 39.1 Finger Stick Blood Glucose 87 General: Awake, Alert, Oriented x 3 HEENT: PERRL, EOMI, Sclera Non Icteric Neck: Supple, Good ROM, No Lymph Node Enlargement Lungs: Clear to auscultation Cardiovascular: Regular Rhythm, Normal S1, Normal S2, No Murmurs, No Rubs, No Gallops Vascular: No Carotid Bruits, Normal Femoral Pulses, Normal Radial Pulses, Normal Dorsalis Pedal Pulse, Normal Posterior Tibial Pulses Abdomen: Bowel Sounds Present, Soft, Non Tender, No HSM, No Organomegaly Extremities: No Cyanosis, No Clubbing, Bilateral Edema +3 Musculoskeletal: No Erythema Skin: No Rashes Lymphatic: No Lymph Node Enlargement Neurological: No Focal Motor or Sensory Deficit Psych/Mental Status: Appropriate 09/30/18 12:54: WBC 5.5, RBC 4.35 L, Hgb 10.9 L, Hct 36.6 L, MCV 84.1, MCH 25.1 L, MCHC 29.8 L, RDW 19.5 H, RDW Differential 58.7 H, Plt Count 162, MPV 9.7, Immature Gran % (Auto) 0.000, Neut % (Auto) 74.5 H, Lymph % (Auto) 18.6 L, Cass % (Auto) 5.8, Eos % (Auto) 0.9, Baso % (Auto) 0.2, Absolute Neuts (auto) 4.1, Total Counted Not Reportable 09/30/18 12:54: Sodium 140, Potassium 4.2, Chloride 105, Carbon Dioxide 29.0, Anion Gap 6, BUN 41 H, Creatinine 1.54 H, Est GFR (MDRD) Af Amer 60, Est GFR (MDRD) Non-Af 50 L, BUN/Creatinine Ratio 26.6 H, Glucose 153 H, Calcium 8.3 L, Troponin I < 0.015 09/30/18 12:54: B-Natriuretic Peptide 446.7 H 09/30/18 16:00: pH 7.31 L, Bicarbonate Actual 25.2, POC Total CO2 27, Base Excess -1, O2 Saturation 97, ABG pCO2 50.3 H, ABG pO2 101 H, Stone Test NA Rhythm: EKG: ECHO: Recent echocardiogram from August demonstrated an ejection fraction of 25%. Biatrial enlargement was noted and pulmonary artery systolic pressure was noted to be over 65 mmHg. Stress Test: Cardiac Cath: PCI: CT Surgery: Holter monitor: EPS: PPM: CXR: Chest CT Scan: Assessment/Plan 1. Acute hypoxic respiratory failure due to acute on chronic HFrEF. The exact precipitating factor on the above is not entirely clear at this time. BNP is ~ 447 CXR shows pulmonary edema with small bilateral pleural effusions now on BIPAP, as he was still hypoxic even on 5L of oxygen continue BIPAP, will need to be intubated if he remains hypoxic on bipap stat ABG: pH of 7.31, with pO 2 of 101 and pCO2 of 50.3; indicating mild respiratory acidosis due to PCO2 retention. bicarb is 21.2. consult e commerce strategist and cardiology continue BIPAP. check ABG in 2 hours. 2. Acute on chronic HFrEF has known EF of 25% per echo, with ICD in place. He definitely has anasarca. will start IV lasix drip monitor input and output fluid restriction to 1500cc daily daily weight check We will hold off on Entresto and spironolactone for now. If his blood pressure remains reduced he may need to be started on dobutamine short-term. 3. CAD and ischemic cardiomyopathy s/p AICD. EF is 25% per echo in 09/10, with moderately dilated LV and regional wall motion abnormalities on aspirin, plavix, carvedilol and entresto. 4. paroxysmal afib: rate and rhythm controlled. ON metoprolol and coumadin. INR is pending. 5. CAD: on aspirin, plavix and atorvastatin 6 I did discuss this with him prior to him leaving the office.. Hyperlipidemia: on atorvastatin Overall his prognosis appears to be guarded due to his reduced ejection fraction and his low blood pressure.
--- NOTE | 2018-09-30 17:05 | CON.PCM_ITS ---
Reason for Consult Date of Consultation: 09/30/18 Reason for Consultation: Shortness of breath History of Present Illness: The patient is a 57 year old M [] : DAKOTAH LANE, is a 57 M who presented to the office today for a follow-up visit. He has a history of ischemic cardiomyopathy, coronary artery disease with stenting to the left anterior descending artery and proximal diagonal vessel in 2009. He also has a history of atrial fibrillation status post AV chris ablation and biventricular ICD placement. In addition he has hypertension and peripheral vascular disease. He continues to reside at [facility] for rehab for a lower extremity wound. He states his chest heaviness has resolved. He states feeling less energy than usual. He states feeling SOB for the last month that is worse when lying flat and exertion and it improves when sitting upright. Pt denies arm, jaw, or neck discomfort. His exercise tolerance is very minimal. Pt denies symptoms of palpitations, near syncopal or syncopal episodes. Pt denies claudication issues. Pt. denies fever, chills, blood in urine, myalgia, or unexplainable fatigue. He states lightheadedness and dizziness when walking and going to a standing position occasionally. He states bilateral lower extremity edema is i mproved, but has worsened in his upper thighs. He states PND and orthopnea nightly. He spends majority of his day sitting in a wheelchair. His physical exam here today demonstrates clear lung mancuso regular rate and rhythm and anasarca. Due to his physical condition in the office he was sent to the emergency room because it was felt that he had an exacerbation of congestive heart failure. His natruretic peptide was elevated and chest x-ray confirmed the above. He was started briefly on a dopamine drip by the emergency room physician which was subsequently discontinued. He apparently started getting more hypoxic requiring BiPAP treatment and was admitted by the hospitalist to the intensive care unit. Past Medical History Allergies/Adverse Reactions: Allergies tramadol Allergy (Verified 09/30/18 12:13) Hives Penicillins Adverse Reaction (Verified 09/30/18 12:13) Nausea Home Medications: Ambulatory Orders Medication Instructions Recorded Acetaminophen [Tylenol] 650 tab PO Q4H PRN PRN 09/30/18 Argin/Glut/Cahmb/Collag/Mv-Min 1 each PO BID 09/30/18 [Tomás Packet] Aspirin [Aspirin, Baby] 81 mg PO DAILY@0800 09/30/18 Atorvastatin Calcium [Lipitor] 40 mg PO QHS 09/30/18 Capsaicin 1 applic TP QHS 09/30/18 Carvedilol 3.125 tab PO BID 09/30/18 Clopidogrel Bisulfate [Plavix] 75 mg PO DAILY 09/30/18 Famotidine 40 mg PO DAILY 09/30/18 Ferrous Sulfate [Ferosul] 325 mg PO BID 09/30/18 Furosemide [Lasix] 80 mg PO BIDLX 09/30/18 Gabapentin [Neurontin] 100 mg PO TIDCM 09/30/18 Insulin Lispro [Humalog] 16 unit SQ TIDCM 09/30/18 Mineral Oil/Petrolatum,White 1 applic TOPICAL BID PRN 09/30/18 [Eucerin] Nitroglycerin [Nitrolingual [place]] 0.4 mg SUBLINGUAL PRN PRN 09/30/18 Sacubitril/Valsartan 24/26 mg 1 each PO BID 09/30/18 [Entresto 24 mg-26 mg Tablet] Spironolactone 25 mg PO DAILY 09/30/18 Tamsulosin HCl [Flomax] 0.4 mg PO QHS 09/30/18 Warfarin Sodium [Coumadin] 4 mg PO QHS 09/30/18 Past Medical History (Chronic Problems): Chronic Problems (Last Reviewed 09/30/18 @ 11:55 by Keven Willingham MD) Chronic kidney disease, stage 3 (Chronic) Secondary 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 (Chronic) care home (current) use of anticoagulants (Chronic) Old anterolateral wall myocardial infarction (Chronic) Chronic atrial fibrillation (Chronic) Acute on chronic systolic (congestive) heart failure (Chronic) Hyperlipidemia (Chronic) Essential (primary) hypertension (Chronic) ICD (implantable cardioverter-defibrillator), biventricular, in situ (Chronic 07/11/15) Atherosclerosis of [place] coronary artery of [place] heart without angina pectoris (Chronic) PCI-EVAN-Mid LAD w/ 2.5 x 25 mm Promus and PCI-EVAN-D1 w/ 2.5 x 23 mm Promus 05/29/2009 Ischemic cardiomyopathy (Chronic) Surgical History: angioplasty, cholecystectomy, pacemaker implantation, - Psychiatric History: No pertinent psych hx - *Family History Paternal Family History: Family History (Last Reviewed 09/30/18 @ 11:55 by Keven Willingham MD) Father Hypertension CAD (coronary artery disease) Sister Cancer History Items: Heart Disease - CAD; at approximately 45 years of age Maternal Family History: Family History (Last Reviewed 09/30/18 @ 11:55 by Keven Willingham MD) Father Hypertension CAD (coronary artery disease) Sister Cancer History Items: Cancer - lung cancer Lives: Detention Smoking Status: Former smoker Tobacco Use: Cigarettes Alcohol: None Drugs: None Review of Systems - Review of Systems General: Reports: Fatigue, Malaise. Denies: Fever, Night Sweats HEENT: Denies: Vision Change Cardiovascular: Reports: Shortness of Breath, Shortness of Breath at Rest, Shortness of Breath with Exertion, Peripheral Edema. Denies: Chest Discomfort, Orthopnea, PND, Palpitations, Lightheadedness, Dizziness, Near Syncope, Syncope Respiratory: Denies: Cough, Sputum Production, Hemoptysis Gastrointestinal: Reports: Abdominal Discomfort. Denies: Hematemesis, Hematochezia, Melena Genitourinary: Denies: Dysuria, Hematuria Muscoloskeletal: Reports: Leg Pain Skin: Denies: Rash Neurological: Reports: Dizziness Psychiatric: Denies: Anxiety Hematologic/ Lymphatic: Denies: Lymph Node Enlargement Subjectve: Middle-aged man in mild distress Objective: Vital Signs Temp Pulse Resp BP Pulse Ox 97.9 F 80 21 H 98/85 H 96 09/30/18 12:11 09/30/18 16:14 09/30/18 16:14 09/30/18 16:14 09/30/18 16:14 Oxygen Flow Rate (L/min) 5 Oxygen Delivery Method Bi-pap Weight: 235 lb Body Mass Index (BMI) 39.1 Finger Stick Blood Glucose 87 General: Awake, Alert, Oriented x 3 HEENT: PERRL, EOMI, Sclera Non Icteric Neck: Supple, Good ROM, No Lymph Node Enlargement Lungs: Clear to auscultation Cardiovascular: Regular Rhythm, Normal S1, Normal S2, No Murmurs, No Rubs, No Gallops Vascular: No Carotid Bruits, Normal Femoral Pulses, Normal Radial Pulses, Normal Dorsalis Pedal Pulse, Normal Posterior Tibial Pulses Abdomen: Bowel Sounds Present, Soft, Non Tender, No HSM, No Organomegaly Extremities: No Cyanosis, No Clubbing, Bilateral Edema +3 Musculoskeletal: No Erythema Skin: No Rashes Lymphatic: No Lymph Node Enlargement Neurological: No Focal Motor or Sensory Deficit Psych/Mental Status: Appropriate 09/30/18 12:54: WBC 5.5, RBC 4.35 L, Hgb 10.9 L, Hct 36.6 L, MCV 84.1, MCH 25.1 L, MCHC 29.8 L, RDW 19.5 H, RDW Differential 58.7 H, Plt Count 162, MPV 9.7, I mmature Gran % (Auto) 0.000, Neut % (Auto) 74.5 H, Lymph % (Auto) 18.6 L, [place] % (Auto) 5.8, Eos % (Auto) 0.9, Baso % (Auto) 0.2, Absolute Neuts (auto) 4.1, Total Counted Not Reportable 09/30/18 12:54: Sodium 140, Potassium 4.2, Chloride 105, Carbon Dioxide 29.0, Anion Gap 6, BUN 41 H, Creatinine 1.54 H, Est GFR (MDRD) Af Amer 60, Est GFR (MDRD) Non-Af 50 L, BUN/Creatinine Ratio 26.6 H, Glucose 153 H, Calcium 8.3 L, Troponin I < 0.015 09/30/18 12:54: B-Natriuretic Peptide 446.7 H 09/30/18 16:00: pH 7.31 L, Bicarbonate Actual 25.2, POC Total CO2 27, Base Excess -1, O2 Saturation 97, ABG pCO2 50.3 H, ABG pO2 101 H, Stone Test NA Rhythm: EKG: ECHO: Recent echocardiogram from August demonstrated an ejection fraction of 25%. Biatrial enlargement was noted and pulmonary artery systolic pressure was noted to be over 65 mmHg. Stress Test: Cardiac Cath: PCI: CT Surgery: Holter monitor: EPS: PPM: CXR: Chest CT Scan: Assessment/Plan 1. Acute hypoxic respiratory failure due to acute on chronic HFrEF. The exact precipitating factor on the above is not entirely clear at this time. * BNP is ~ 447 * CXR shows pulmonary edema with small bilateral pleural effusions * now on BIPAP, as he was still hypoxic even on 5L of oxygen * * continue BIPAP, will need to be intubated if he remains hypoxic on bipap * stat ABG: pH of 7.31, with pO 2 of 101 and pCO2 of 50.3; indicating mild respiratory acidosis due to PCO2 retention. bicarb is 21.2. * consult project management engineer and cardiology * continue BIPAP. check ABG in 2 hours. * 2. Acute on chronic HFrEF * has known EF of 25% per echo, with ICD in place. He definitely has anasarca. * will start IV lasix drip * monitor input and output * fluid restriction to 1500cc daily * daily weight check * We will hold off on Entresto and spironolactone for now. If his blood pressure remains reduced he may need to be started on dobutamine short-term. * 3. CAD and ischemic cardiomyopathy * s/p AICD. EF is 25% per echo in 09/10, with moderately dilated LV and regional wall motion abnormalities * on aspirin, plavix, carvedilol and entresto. * 4. paroxysmal afib: rate and rhythm controlled. ON metoprolol and coumadin. INR is pending. 5. CAD: on aspirin, plavix and atorvastatin 6 I did discuss this with him prior to him leaving the office.. Hyperlipidemia: on atorvastatin Overall his prognosis appears to be guarded due to his reduced ejection fraction and his low blood pressure.
[2018-09-30 17:14] LABS: Prothrombin Time (Protime)PT. 40.1 SECONDS (11.7-14.9)
[2018-09-30 17:18] LABS: International Normalized Ratio 4.1
[2018-09-30 18:06] LABS: Bedside Glucose 139 mg/dL (70-110)
[2018-09-30] MEDS: Furosemide 500 MG in Empty Viaflex 50 mL 1 EACH CONT INF (18:13)
[2018-09-30] MEDS: DOBUTamine 500mg PM 500 MG/250 ML IV.SOLN. 15.989 MG CONT INF (18:47)
[2018-09-30] MEDS: Ipratropium/Albuterol Sulfate 3 ML AMPUL.NEB INHALATION (18:51)
[2018-09-30 23:31] LABS: Bedside Glucose 121 mg/dL (70-110)
[2018-10-01] VITALS (33 sets, daily range): BP systolic 92–112; BP diastolic 49–78; PULSE 80–85; RESP 11–24; TEMP 36.1–36.9; O2SAT 94–100
[2018-10-01 05:05] LABS: Absolute Lymphocyte Count 0.83 X10^3/ul (0.83-4.51); Absolute Neutrophil Count 4.2 X10^3/uL (2.0-7.7); Basophil# 0.02 X10^3/uL; Basophil% 0.4 % (0-1); Eosinophil# 0.07 X10^3/uL; Eosinophils% 1.2 % (0-5); Hematocrit 35.6 % (40-54); Hemoglobin 10.7 g/dl (13.0-16.5); Lymphocyte # 0.83 X10^3/ul (4.0); Lymphocyte % 14.5 % (19-41); Mean Corp Hgb Conc 30.1 g/gl (32-36); Mean Corpuscular Hgb 25.1 pg (27.0-32.0); Mean Corpuscular Volume 83.6 fL (80-94); Mean Platelet Vol. 9.6 fl (6.2-12.0); Monocyte# 0.61 X10^3/uL; Monocyte% 10.7 % (0-10); Neutrophil # 4.17 X10^3/uL (2.7-7.7); Platelet Count 168 K/mm3 (150-450); RBC Distribution Width CV 19.4 % (11.6-14.6); RBC Distribution Width SD 57.4 fl (35.1-43.9); Red Blood Count 4.26 M/mm3 (4.6-6.2); White Blood Count 5.7 K/mm3 (4.4-11.0)
[2018-10-01 05:06] LABS: POSITIVE COUNT NO; POSITIVE DIFFERENTIAL NO; POSITIVE MORPHOLOGY NO
[2018-10-01 05:14] LABS: International Normalized Ratio 3.8
[2018-10-01 05:18] LABS: Anion Gap 8 (5-15); BUN 36 mg/dL (7-18); BUN/Creat Ratio 26.7 RATIO (10-20); Calcium,Total 8.4 mg/dL (8.5-10.1); Chloride 104 mmol/L (98-107); Creatinine, Serum 1.35 mg/dL (0.70-1.30); EST Glomerular Filtration Rate 58 mL/min (>60); Est Glom Filt Rate - Afr Amer 70 mL/min (>60); Estimated Creatinine Clearance 53.78 ml/min; Glucose 166 mg/dL (74-106); Sodium Level 142 mmol/L (136-145)
[2018-10-01 05:50] LABS: Bedside Glucose 103 mg/dL (70-110)
--- NOTE | 2018-10-01 06:47 | PCM.CON.CC ---
Reason for Consult Date of Consultation: 10/01/18 Reason for Consultation: Respiratory failure/heart failure exacerbation History of Present Illness: The patient is a 57-year-old male, with a history as outlined below, who presented to the emergency department on September 30 after being evaluated in the cardiology clinic over concerns for decompensated heart failure. The patient does have a history of ischemic cardiomyopathy with a previous history of PCI. He also has known atrial fibrillation for which he is status post AV chris ablation and biventricular ICD placement. During the patient's evaluation in the cardiology clinic he was noted to be expressing concerns for worsening shortness of breath, lower extremity edema and orthopnea. The patient does report a history of JUAN DIEGO with his last PSG having occurred 4+ years ago. However, the patient has been noncompliant with nocturnal PAP therapy for over 2 years. He denies a tobacco abuse history. On presentation to the emergency department, the patient was noted to be afebrile with a blood pressure of 82/53 mmHg. The patient was noted to be saturating 100% on 3 L/min. Laboratory evaluation revealed no evidence of a leukocytosis. INR was noted to be elevated at 4.1. Chemistry profile was notable for chronic kidney disease with a creatinine of 1.54. Troponin was negative. BNP was elevated to 446. Plain film chest x-ray revealed evidence of pulmonary vascular congestion with small bilateral pleural effusions. The patient was subsequently placed on BiPAP in the emergency department and admitted to the medical intensive care unit for management of his decompensated heart failure. Overnight, the patient has been maintained on both dobutamine and Lasix infusions. The patient did tolerate BiPAP overnight and was weaned to nasal cannula this morning at 3 L/min. He is currently overall net -4.1 L for the admission. Past Medical History Past Medical History (Chronic Problems): Chronic Problems (Last Reviewed 09/30/18 @ 11:55 by Keven Willingham MD) Chronic kidney disease, stage 3 (Chronic) Secondary 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 (Chronic) [facility] (current) use of anticoagulants (Chronic) Old anterolateral wall myocardial infarction (Chronic) Chronic atrial fibrillation (Chronic) Acute on chronic systolic (congestive) heart failure (Chronic) Hyperlipidemia (Chronic) Essential (primary) hypertension (Chronic) ICD (implantable cardioverter-defibrillator), biventricular, in situ (Chronic 07/11/15) Atherosclerosis of [place] coronary artery of [place] heart without angina pectoris (Chronic) PCI-EVAN-Mid LAD w/ 2.5 x 25 mm Promus and PCI-EVAN-D1 w/ 2.5 x 23 mm Promus 05/29/2009 Ischemic cardiomyopathy (Chronic) Medical History: Medical History (Last Reviewed 09/30/18 @ 11:55 by Keven Willingham MD) Chronic kidney disease, stage 3 (Chronic) N18.3 Secondary 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 (Chronic) I27.21 Old anterolateral wall myocardial infarction (Chronic) I25.2 Chronic atrial fibrillation (Chronic) I48.2 Acute on chronic systolic (congestive) heart failure (Chronic) I50.23 Hyperlipidemia (Chronic) E78.5 Essential (primary) hypertension (Chronic) I10 Atherosclerosis of [place] coronary artery of [place] heart without angina pectoris (Chronic) I25.10 PCI-EVAN-Mid LAD w/ 2.5 x 25 mm Promus and PCI-EVAN-D1 w/ 2.5 x 23 mm Promus 05/29/2009 Ischemic cardiomyopathy (Chronic) I25.5 Non-healing ulcer of lower extremity L97.909 BPH (benign prostatic hyperplasia) N40.0 COPD (chronic obstructive pulmonary disease) J44.9 GERD (gastroesophageal reflux disease) K21.9 LV (left ventricular) mural thrombus I51.3 Obesity E66.9 Obstructive sleep apnea G47.33 Peripheral vascular occlusive disease I73.9 Type 2 diabetes mellitus E11.9 Pleural effusion, left (Resolved) J90 Allergies tramadol Allergy (Verified 09/30/18 12:13) Hives Penicillins Adverse Reaction (Verified 09/30/18 12:13) Nausea Home Medications: Ambulatory Orders Medication Instructions Recorded Acetaminophen [Tylenol] 650 tab PO Q4H PRN PRN 09/30/18 Argin/Glut/Cahmb/Collag/Mv-Min 1 each PO BID 09/30/18 [Tomás Packet] Aspirin [Aspirin, Baby] 81 mg PO DAILY@0800 09/30/18 Atorvastatin Calcium [Lipitor] 40 mg PO QHS 09/30/18 Capsaicin 1 applic TP QHS 09/30/18 Carvedilol 3.125 tab PO BID 09/30/18 Clopidogrel Bisulfate [Plavix] 75 mg PO DAILY 09/30/18 Famotidine 40 mg PO DAILY 09/30/18 Ferrous Sulfate [Ferosul] 325 mg PO BID 09/30/18 Furosemide [Lasix] 80 mg PO BIDLX 09/30/18 Gabapentin [Neurontin] 100 mg PO TIDCM 09/30/18 Insulin Lispro [Humalog] 16 unit SQ TIDCM 09/30/18 Mineral Oil/Petrolatum,White 1 applic TOPICAL BID PRN 09/30/18 [Eucerin] Nitroglycerin [Nitrolingual [place]] 0.4 mg SUBLINGUAL PRN PRN 09/30/18 Sacubitril/Valsartan 24/26 mg 1 each PO BID 09/30/18 [Entresto 24 mg-26 mg Tablet] Spironolactone 25 mg PO DAILY 09/30/18 Tamsulosin HCl [Flomax] 0.4 mg PO QHS 09/30/18 Warfarin Sodium [Coumadin] 4 mg PO QHS 09/30/18 Surgical History: Surgical History (Last Reviewed 09/30/18 @ 11:55 by Keven Willingham MD) History of coronary artery stent placement (Resolved) Onset Date: 05/29/09 Z95.5 PCI-EVAN-Mid LAD w/ 2.5 x 25 mm Promus and PCI-EVAN-D1 w/ 2.5 x 23 mm Promus 05/29/2009 ICD (implantable cardioverter-defibrillator), biventricular, in situ (Chronic) Onset Date: 07/11/15 Z95.810 History of mzixc-[id number] bypass Z95.828 Hx of atrioventricular node ablation Onset Date: 07/11/15 Z98.890 History of cardiac pacemaker Z95.0 History of cholecystectomy Z98.890, Z90.49 Surgical History: angioplasty, cholecystectomy, pacemaker implantation, - Psychiatric History: No pertinent psych hx [place]: [place] Smoking Status: Former smoker Tobacco Use: Cigarettes Alcohol: None Drugs: None - *Family History Paternal Family History: Family History (Last Reviewed 09/30/18 @ 11:55 by Keven Willingham MD) Father Hypertension CAD (coronary artery disease) Sister Cancer History Items: Heart Disease - CAD; at approximately 45 years of age Maternal Family History: Family History (Last Reviewed 09/30/18 @ 11:55 by Keven Willingham MD) Father Hypertension CAD (coronary artery disease) Sister Cancer History Items: Cancer - lung cancer Review of Systems Constitutional: Reports: Weight Change Eyes: Denies: Blurred vision, Double vision HEENT: Denies: Head Aches, Sinus Congestion, Sinus Drainage Cardiovascular: Reports: Edema, Orthopnea. Denies: Chest Pain, Palpitations Respiratory: Reports: Shortness of Breath Gastrointestinal: Denies: Abdominal Pain, Nausea, Vomiting Genitourinary: Denies: Dysuria Musculoskeletal: Denies: Joint Pain, Joint Tenderness Skin: Denies: Rash, Wounds Neurological: Denies: Numbness, Tingling, Focal weakness Psychiatric: Denies: Anxiety, Depression, Homicidal Ideations, Suicidal Ideations Hematologic/ Lymphatic: Denies: Easy Bruising, Easy Bleeding Patient Problems: Active and Suspected Problems (Last Reviewed 09/30/18 @ 11:55 by Keven Willingham MD) Congestive heart failure (Acute) Objective: The patient's most recent lab work, culture data and imaging studies have all been personally reviewed. Surface echocardiogram dated August 2018 revealed a moderately dilated LV with an ejection fraction of 25%. The patient's RV was moderately dilated with mild global RV systolic dysfunction and a right ventricular systolic pressure estimated to be 67 mmHg. - Physical Exam General: Alert, Oriented x3, Cooperative, No apparent distress, - - Sitting upright in bed HEENT: Atraumatic, PERRLA, Normocephalic Oral: No Gingival or Mucosal Lesions/ Ulcerations Neck: Supple, No Nodes, Trachea Midline Lungs: No rhonchi, No wheeze, No rales, Diminished Cardiovascular: Regular rate, Regular Rhythm, Normal S1, Normal S2, Murmur, - - Paced rhythm Abdomen: Bowel Sounds Present, Soft, Non Tender, Obese Extremities: No clubbing, No cyanosis, Edema, - - Wrapped LLE Skin: - - RLE venous stasis dermatitis Musculoskeletal: No Tenderness to Palpation of Joints or Extremities, No Muscle Wasting Lymphatic: No Cervical, Supraclavicular, or Inguinal Adenopathy Neurological: Cranial nerves II-XII grossly intact, Neuro grossly intact Psych/Mental Status: Alert and oriented to time, place, person, mood and affect Vital Signs Temp Pulse Resp BP Pulse Ox 97.0 F L 80 16 104/67 100 10/01/18 04:00 10/01/18 06:00 10/01/18 06:00 10/01/18 06:00 10/01/18 06:00 Oxygen Flow Rate (L/min) 3 Oxygen Delivery Method Nasal Cannula Weight: 227 lb 4.745 oz Body Mass Index (BMI) 39.1 Finger Stick Blood Glucose 87 Intake and Output for Last 24 Hours 09/29/18 09/30/18 10/01/18 23:59 23:59 23:59 Intake Total 73.7 / 73.7 115.8 / 115.8 Output Total 1875 / 1875 2500 / 2500 Balance -1801.3 / -1801.3 -2384.2 / -2384.2 Laboratory Tests Past 24 Hrs 09/30/18 09/30/18 09/30/18 12:54 12:54 12:54 WBC 5.5 RBC 4.35 L Hgb 10.9 L Hct 36.6 L MCV 84.1 MCH 25.1 L MCHC 29.8 L RDW 19.5 H RDW Differential 58.7 H Plt Count 162 MPV 9.7 Immature Gran % (Auto) 0.000 Neut % (Auto) 74.5 H Lymph % (Auto) 18.6 L Bartholomew % (Auto) 5.8 Eos % (Auto) 0.9 Baso % (Auto) 0.2 Absolute Neuts (auto) 4.1 Absolute Lymphs (auto) 1.02 Total Counted Not Reportable PT INR Specimen Type Sample Site pH Bicarbonate Actual POC Total CO2 Base Excess O2 Saturation O2 % ABG pCO2 ABG pO2 Stone Test Respiration Rate O2 Delivery Device EPAP IPAP Blood Gas Notified Whom Blood Gas Notified Time Sodium 140 Potassium 4.2 Chloride 105 Carbon Dioxide 29.0 Anion Gap 6 BUN 41 H Creatinine 1.54 H Estim Creat Clear Calc 52.44 Est GFR (MDRD) Af Amer 60 Est GFR (MDRD) Non-Af 50 L BUN/Creatinine Ratio 26.6 H Glucose 153 H Calcium 8.3 L Troponin I < 0.015 B-Natriuretic Peptide 446.7 H 09/30/18 09/30/18 10/01/18 12:54 16:00 04:45 WBC 5.7 RBC 4.26 L Hgb 10.7 L Hct 35.6 L MCV 83.6 MCH 25.1 L MCHC 30.1 L RDW 19.4 H RDW Differential 57.4 H Plt Count 168 MPV 9.6 Immature Gran % (Auto) 0.200 Neut % (Auto) 73.0 H Lymph % (Auto) 14.5 L Bartholomew % (Auto) 10.7 H Eos % (Auto) 1.2 Baso % (Auto) 0.4 Absolute Neuts (auto) 4.2 Absolute Lymphs (auto) 0.83 Total Counted Not Reportable PT 40.1 H INR 4.1 H* Specimen Type ART Sample Site L Brachial pH 7.31 L Bicarbonate Actual 25.2 POC Total CO2 27 Base Excess -1 O2 Saturation 97 O2 % 60 ABG pCO2 50.3 H ABG pO2 101 H Stone Test NA Respiration Rate 12 O2 Delivery Device Bi / C PAP EPAP 8 IPAP 15 Blood Gas Notified Whom ED Blood Gas Notified Time 1551 Sodium Potassium Chloride Carbon Dioxide Anion Gap BUN Creatinine Estim Creat Clear Calc Est GFR (MDRD) Af Amer Est GFR (MDRD) Non-Af BUN/Creatinine Ratio Glucose Calcium Troponin I B-Natriuretic Peptide 10/01/18 10/01/18 04:45 04:45 WBC RBC Hgb Hct MCV MCH MCHC RDW RDW Differential Plt Count MPV Immature Gran % (Auto) Neut % (Auto) Lymph % (Auto) Bartholomew % (Auto) Eos % (Auto) Baso % (Auto) Absolute Neuts (auto) Absolute Lymphs (auto) Total Counted PT 38.0 H INR 3.8 H* Specimen Type Sample Site pH Bicarbonate Actual POC Total CO2 Base Excess O2 Saturation O2 % ABG pCO2 ABG pO2 Stone Test Respiration Rate O2 Delivery Device EPAP IPAP Blood Gas Notified Whom Blood Gas Notified Time Sodium 142 Potassium 4.0 Chloride 104 Carbon Dioxide 30.0 Anion Gap 8 BUN 36 H Creatinine 1.35 H Estim Creat Clear Calc 53.78 Est GFR (MDRD) Af Amer 70 Est GFR (MDRD) Non-Af 58 L BUN/Creatinine Ratio 26.7 H Glucose 166 H Calcium 8.4 L Troponin I B-Natriuretic Peptide POC Glucose 10/01/18 09/30/18 09/30/18 05:43 23:13 17:49 POC Glucose 103 121 H 139 H 09/30/18 12:35 POC Glucose 155 H Clinical Impression(s) from Imaging Studies Chest X-Ray 09/30/18 13:04 IMPRESSION: Findings in keeping with CHF. Bibasilar atelectasis and small bilateral effusions. Electronically Signed: Mann Prater, at 13:50 EDT , Service support , Assessment/Plan Active and Suspected Problems (Last Reviewed 09/30/18 @ 11:55 by Keven Willingham MD) Congestive heart failure (Acute) RECOMMENDATIONS: 1. Continue Lasix and dobutamine per cardiology recommendations. 2. Encourage incentive spirometer use while in bed. 3. Mobilize patient as tolerated. Physical therapy to evaluate patient. 4. Continue BiPAP therapy with naps and nightly. 5. Recommend outpatient pulmonary follow-up so that a re-titration polysomnogram can be completed. IMPRESSIONS: 1. Acute Hypoxemic Respiratory Failure 2/2 Decompensated Heart Failure The patient presented to the hospital admits to a CHF exacerbation leading to respiratory decompensation and the need for noninvasive positive pressure ventilatory support. The patient has been maintained on a Lasix drip and BiPAP therapy with subsequent improvement in clinical state noted. The patient has been weaned from BiPAP therapy as of this morning and is maintaining appropriate oxygen saturations on room air. Continue management of his underlying heart failure per cardiology recommendations. Recommend incentive spirometer use while in bed. In addition, given the patient's known history of obstructive sleep apnea, recommend utilization of BiPAP therapy with naps and nightly. 2. Ischemic cardiomyopathy status post PCI/known atrial fibrillation/ICD in situ Continue primary medical management per cardiology recommendations. Resume systemic anticoagulation. 3. Obstructive sleep apnea, noncompliant with nocturnal Pap therapy. The patient does report having been diagnosed with obstructive sleep apnea a multitude of years ago. However, he reports that his machine is no longer functional and he has therefore been noncompliant with the use of nocturnal Pap therapy for greater than 2 years. Recommend outpatient pulmonary follow-up so that a re-titration polysomnogram can be completed. In the interim, recommend continuing BiPAP therapy empirically with sleep and naps. 4. Anemia/hypertension/hyperlipidemia/diabetes mellitus Complicates care, management, recovery and prognosis. Continue home medications as indicated. Recommend physical therapy evaluation. This note was generated with writewithation software. It may contain incorrect words, spelling, and punctuation that were not noted in checking the note before signing. Code Visit Inpatient E&M: 75244 Init Hosp L3
[2018-10-01] MEDS: Ipratropium/Albuterol Sulfate 3 ML AMPUL.NEB INHALATION (06:52)
--- NOTE | 2018-10-01 06:53 | CON.PCM_ITS ---
Reason for Consult Date of Consultation: 10/01/18 Reason for Consultation: Respiratory failure/heart failure exacerbation History of Present Illness: The patient is a 57-year-old male, with a history as outlined below, who presented to the emergency department on September 30 after being evaluated in the cardiology clinic over concerns for decompensated heart failure. The patient does have a history of ischemic cardiomyopathy with a previous history of PCI. He also has known atrial fibrillation for which he is status post AV chris ablation and biventricular ICD placement. During the patient's evaluation in the cardiology clinic he was noted to be expressing concerns for worsening shortness of breath, lower extremity edema and orthopnea. The patient does report a history of JUAN DIEGO with his last PSG having occurred 4+ years ago. However, the patient has been noncompliant with nocturnal PAP therapy for over 2 years. He denies a tobacco abuse history. On presentation to the emergency department, the patient was noted to be afebrile with a blood pressure of 82/53 mmHg. The patient was noted to be saturating 100% on 3 L/min. Laboratory evaluation revealed no evidence of a leukocytosis. INR was noted to be elevated at 4.1. Chemistry profile was notable for chronic kidney disease with a creatinine of 1.54. Troponin was negative. BNP was elevated to 446. Plain film chest x-ray revealed evidence of pulmonary vascular congestion with small bilateral pleural effusions. The patient was subsequently placed on BiPAP in the emergency department and admitted to the medical intensive care unit for management of his decompensated heart failure. Overnight, the patient has been maintained on both dobutamine and Lasix infusions. The patient did tolerate BiPAP overnight and was weaned to nasal cannula this morning at 3 L/min. He is currently overall net -4.1 L for the admission. Past Medical History Past Medical History (Chronic Problems): Chronic Problems (Last Reviewed 09/30/18 @ 11:55 by Keven Willingham MD) Chronic kidney disease, stage 3 (Chronic) Secondary 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 (Chronic) assisted (current) use of anticoagulants (Chronic) Old anterolateral wall myocardial infarction (Chronic) Chronic atrial fibrillation (Chronic) Acute on chronic systolic (congestive) heart failure (Chronic) Hyperlipidemia (Chronic) Essential (primary) hypertension (Chronic) ICD (implantable cardioverter-defibrillator), biventricular, in situ (Chronic 07/11/15) Atherosclerosis of [place] coronary artery of [place] heart without angina pectoris (Chronic) PCI-EVAN-Mid LAD w/ 2.5 x 25 mm Promus and PCI-EVAN-D1 w/ 2.5 x 23 mm Promus 05/29/2009 Ischemic cardiomyopathy (Chronic) Medical History: Medical History (Last Reviewed 09/30/18 @ 11:55 by Keven Willingham MD) Chronic kidney disease, stage 3 (Chronic) N18.3 Secondary 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 (Chronic) I27.21 Old anterolateral wall myocardial infarction (Chronic) I25.2 Chronic atrial fibrillation (Chronic) I48.2 Acute on chronic systolic (congestive) heart failure (Chronic) I50.23 Hyperlipidemia (Chronic) E78.5 Essential (primary) hypertension (Chronic) I10 Atherosclerosis of [place] coronary artery of [place] heart without angina pectoris (Chronic) I25.10 PCI-EVAN-Mid LAD w/ 2.5 x 25 mm Promus and PCI-EVAN-D1 w/ 2.5 x 23 mm Promus 05/29/2009 Ischemic cardiomyopathy (Chronic) I25.5 Non-healing ulcer of lower extremity L97.909 BPH (benign prostatic hyperplasia) N40.0 COPD (chronic obstructive pulmonary disease) J44.9 GERD (gastroesophageal reflux disease) K21.9 LV (left ventricular) mural thrombus I51.3 Obesity E66.9 Obstructive sleep apnea G47.33 Peripheral vascular occlusive disease I73.9 Type 2 diabetes mellitus E11.9 Pleural effusion, left (Resolved) J90 Allergies tramadol Allergy (Verified 09/30/18 12:13) Hives Penicillins Adverse Reaction (Verified 09/30/18 12:13) Nausea Home Medications: Ambulatory Orders Medication Instructions Recorded Acetaminophen [Tylenol] 650 tab PO Q4H PRN PRN 09/30/18 Argin/Glut/Cahmb/Collag/Mv-Min 1 each PO BID 09/30/18 [Tomás Packet] Aspirin [Aspirin, Baby] 81 mg PO DAILY@0800 09/30/18 Atorvastatin Calcium [Lipitor] 40 mg PO QHS 09/30/18 Capsaicin 1 applic TP QHS 09/30/18 Carvedilol 3.125 tab PO BID 09/30/18 Clopidogrel Bisulfate [Plavix] 75 mg PO DAILY 09/30/18 Famotidine 40 mg PO DAILY 09/30/18 Ferrous Sulfate [Ferosul] 325 mg PO BID 09/30/18 Furosemide [Lasix] 80 mg PO BIDLX 09/30/18 Gabapentin [Neurontin] 100 mg PO TIDCM 09/30/18 Insulin Lispro [Humalog] 16 unit SQ TIDCM 09/30/18 Mineral Oil/Petrolatum,White 1 applic TOPICAL BID PRN 09/30/18 [Eucerin] Nitroglycerin [Nitrolingual [place]] 0.4 mg SUBLINGUAL PRN PRN 09/30/18 Sacubitril/Valsartan 24/26 mg 1 each PO BID 09/30/18 [Entresto 24 mg-26 mg Tablet] Spironolactone 25 mg PO DAILY 09/30/18 Tamsulosin HCl [Flomax] 0.4 mg PO QHS 09/30/18 Warfarin Sodium [Coumadin] 4 mg PO QHS 09/30/18 Surgical History: Surgical History (Last Reviewed 09/30/18 @ 11:55 by Keven Willingham MD) History of coronary artery stent placement (Resolved) Onset Date: 05/29/09 Z95.5 PCI-EAVN-Mid LAD w/ 2.5 x 25 mm Promus and PCI-EVAN-D1 w/ 2.5 x 23 mm Promus 05/29/2009 ICD (implantable cardioverter-defibrillator), biventricular, in situ (Chronic) Onset Date: 07/11/15 Z95.810 History of qdini-zopik-myelkey bypass Z95.828 Hx of atrioventricular node ablation Onset Date: 07/11/15 Z98.890 History of cardiac pacemaker Z95.0 History of cholecystectomy Z98.890, Z90.49 Surgical History: angioplasty, cholecystectomy, pacemaker implantation, - Psychiatric History: No pertinent psych hx Lives: Alf Smoking Status: Former smoker Tobacco Use: Cigarettes Alcohol: None Drugs: None - *Family History Paternal Family History: Family History (Last Reviewed 09/30/18 @ 11:55 by Keven Willingham MD) Father Hypertension CAD (coronary artery disease) Sister Cancer History Items: Heart Disease - CAD; at approximately 45 years of age Maternal Family History: Family History (Last Reviewed 09/30/18 @ 11:55 by Keven Willingham MD) Father Hypertension CAD (coronary artery disease) Sister Cancer History Items: Cancer - lung cancer Review of Systems Constitutional: Reports: Weight Change Eyes: Denies: Blurred vision, Double vision HEENT: Denies: Head Aches, Sinus Congestion, Sinus Drainage Cardiovascular: Reports: Edema, Orthopnea. Denies: Chest Pain, Palpitations Respiratory: Reports: Shortness of Breath Gastrointestinal: Denies: Abdominal Pain, Nausea, Vomiting Genitourinary: Denies: Dysuria Musculoskeletal: Denies: Joint Pain, Joint Tenderness Skin: Denies: Rash, Wounds Neurological: Denies: Numbness, Tingling, Focal weakness Psychiatric: Denies: Anxiety, Depression, Homicidal Ideations, Suicidal Ideations Hematologic/ Lymphatic: Denies: Easy Bruising, Easy Bleeding Patient Problems: Active and Suspected Problems (Last Reviewed 09/30/18 @ 11:55 by Keven Willingham MD) Congestive heart failure (Acute) Objective: The patient's most recent lab work, culture data and imaging studies have all been personally reviewed. Surface echocardiogram dated August 2018 revealed a moderately dilated LV with an ejection fraction of 25%. The patient's RV was moderately dilated with mild global RV systolic dysfunction and a right ventricular systolic pressure estimated to be 67 mmHg. - Physical Exam General: Alert, Oriented x3, Cooperative, No apparent distress, - - Sitting u pright in bed HEENT: Atraumatic, PERRLA, Normocephalic Oral: No Gingival or Mucosal Lesions/ Ulcerations Neck: Supple, No Nodes, Trachea Midline Lungs: No rhonchi, No wheeze, No rales, Diminished Cardiovascular: Regular rate, Regular Rhythm, Normal S1, Normal S2, Murmur, - - Paced rhythm Abdomen: Bowel Sounds Present, Soft, Non Tender, Obese Extremities: No clubbing, No cyanosis, Edema, - - Wrapped LLE Skin: - - RLE venous stasis dermatitis Musculoskeletal: No Tenderness to Palpation of Joints or Extremities, No Muscle Wasting Lymphatic: No Cervical, Supraclavicular, or Inguinal Adenopathy Neurological: Cranial nerves II-XII grossly intact, Neuro grossly intact Psych/Mental Status: Alert and oriented to time, place, person, mood and affect Vital Signs Temp Pulse Resp BP Pulse Ox 97.0 F L 80 16 104/67 100 10/01/18 04:00 10/01/18 06:00 10/01/18 06:00 10/01/18 06:00 10/01/18 06:00 Oxygen Flow Rate (L/min) 3 Oxygen Delivery Method Nasal Cannula Weight: 227 lb 4.745 oz Body Mass Index (BMI) 39.1 Finger Stick Blood Glucose 87 Intake and Output for Last 24 Hours 09/29/18 09/30/18 10/01/18 23:59 23:59 23:59 Intake Total 73.7 / 73.7 115.8 / 115.8 Output Total 1875 / 1875 2500 / 2500 Balance -1801.3 / -1801.3 -2384.2 / -2384.2 Laboratory Tests Past 24 Hrs 09/30/18 09/30/18 09/30/18 12:54 12:54 12:54 WBC 5.5 RBC 4.35 L Hgb 10.9 L Hct 36.6 L MCV 84.1 MCH 25.1 L MCHC 29.8 L RDW 19.5 H RDW Differential 58.7 H Plt Count 162 MPV 9.7 Immature Gran % (Auto) 0.000 Neut % (Auto) 74.5 H Lymph % (Auto) 18.6 L [place] % (Auto) 5.8 Eos % (Auto) 0.9 Baso % (Auto) 0.2 Absolute Neuts (auto) 4.1 Absolute Lymphs (auto) 1.02 Total Counted Not Reportable PT INR Specimen Type Sample Site pH Bicarbonate Actual POC Total CO2 Base Excess O2 Saturation O2 % ABG pCO2 ABG pO2 Stone Test Respiration Rate O2 Delivery Device EPAP IPAP Blood Gas Notified Whom Blood Gas Notified Time Sodium 140 Potassium 4.2 Chloride 105 Carbon Dioxide 29.0 Anion Gap 6 BUN 41 H Creatinine 1.54 H Estim Creat Clear Calc 52.44 Est GFR (MDRD) Af Amer 60 Est GFR (MDRD) Non-Af 50 L BUN/Creatinine Ratio 26.6 H Glucose 153 H Calcium 8.3 L Troponin I < 0.015 B-Natriuretic Peptide 446.7 H 09/30/18 09/30/18 10/01/18 12:54 16:00 04:45 WBC 5.7 RBC 4.26 L Hgb 10.7 L Hct 35.6 L MCV 83.6 MCH 25.1 L MCHC 30.1 L RDW 19.4 H RDW Differential 57.4 H Plt Count 168 MPV 9.6 Immature Gran % (Auto) 0.200 Neut % (Auto) 73.0 H Lymph % (Auto) 14.5 L [place] % (Auto) 10.7 H Eos % (Auto) 1.2 Baso % (Auto) 0.4 Absolute Neuts (auto) 4.2 Absolute Lymphs (auto) 0.83 Total Counted Not Reportable PT 40.1 H INR 4.1 H* Specimen Type ART Sample Site L Brachial pH 7.31 L Bicarbonate Actual 25.2 POC Total CO2 27 Base Excess -1 O2 Saturation 97 O2 % 60 ABG pCO2 50.3 H ABG pO2 101 H Stone Test NA Respiration Rate 12 O2 Delivery Device Bi / C PAP EPAP 8 IPAP 15 Blood Gas Notified Whom ED Blood Gas Notified Time 1551 Sodium Potassium Chloride Carbon Dioxide Anion Gap BUN Creatinine Estim Creat Clear Calc Est GFR (MDRD) Af Amer Est GFR (MDRD) Non-Af BUN/Creatinine Ratio Glucose Calcium Troponin I B-Natriuretic Peptide 10/01/18 10/01/18 04:45 04:45 WBC RBC Hgb Hct MCV MCH MCHC RDW RDW Differential Plt Count MPV Immature Gran % (Auto) Neut % (Auto) Lymph % (Auto) [place] % (Auto) Eos % (Auto) Baso % (Auto) Absolute Neuts (auto) Absolute Lymphs (auto) Total Counted PT 38.0 H INR 3.8 H* Specimen Type Sample Site pH Bicarbonate Actual POC Total CO2 Base Excess O2 Saturation O2 % ABG pCO2 ABG pO2 Stone Test Respiration Rate O2 Delivery Device EPAP IPAP Blood Gas Notified Whom Blood Gas Notified Time Sodium 142 Potassium 4.0 Chloride 104 Carbon Dioxide 30.0 Anion Gap 8 BUN 36 H Creatinine 1.35 H Estim Creat Clear Calc 53.78 Est GFR (MDRD) Af Amer 70 Est GFR (MDRD) Non-Af 58 L BUN/Creatinine Ratio 26.7 H Glucose 166 H Calcium 8.4 L Troponin I B-Natriuretic Peptide POC Glucose 10/01/18 09/30/18 09/30/18 05:43 23:13 17:49 POC Glucose 103 121 H 139 H 09/30/18 12:35 POC Glucose 155 H Clinical Impression(s) from Imaging Studies Chest X-Ray 09/30/18 13:04 IMPRESSION: Findings in keeping with CHF. Bibasilar atelectasis and small bilateral effusions. Electronically Signed: Mann Prater, at 13:50 EDT , Service support , Assessment/Plan Active and Suspected Problems (Last Reviewed 09/30/18 @ 11:55 by Keven Willingham MD) Congestive heart failure (Acute) RECOMMENDATIONS: 1. Continue Lasix and dobutamine per cardiology recommendations. 2. Encourage incentive spirometer use while in bed. 3. Mobilize patient as tolerated. Physical therapy to evaluate patient. 4. Continue BiPAP therapy with naps and nightly. 5. Recommend outpatient pulmonary follow-up so that a re-titration polysomnogram can be completed. IMPRESSIONS: 1. Acute Hypoxemic Respiratory Failure 2/2 Decompensated Heart Failure The patient presented to the hospital admits to a CHF exacerbation leading to respiratory decompensation and the need for noninvasive positive pressure ventilatory support. The patient has been maintained on a Lasix drip and BiPAP therapy with subsequent improvement in clinical state noted. The patient has been weaned from BiPAP therapy as of this morning and is maintaining appropriate oxygen saturations on room air. Continue management of his underlying heart failure per cardiology recommendations. Recommend incentive spirometer use while in bed. In addition, given the patient's known history of obstructive sleep apnea, recommend utilization of BiPAP therapy with naps and nightly. 2. Ischemic cardiomyopathy status post PCI/known atrial fibrillation/ICD in situ Continue primary medical management per cardiology recommendations. Resume systemic anticoagulation. 3. Obstructive sleep apnea, noncompliant with nocturnal Pap therapy. The patient does report having been diagnosed with obstructive sleep apnea a multitude of years ago. However, he reports that his machine is no longer functional and he has therefore been noncompliant with the use of nocturnal Pap therapy for greater than 2 years. Recommend outpatient pulmonary follow-up so that a re-titration polysomnogram can be completed. In the interim, recommend continuing BiPAP therapy empirically with sleep and naps. 4. Anemia/hypertension/hyperlipidemia/diabetes mellitus Complicates care, management, recovery and prognosis. Continue home medications as indicated. Recommend physical therapy evaluation. This note was generated with [employer] software. It may contain incorrect words, spelling, and punctuation that were not noted in checking the note before signing. Code Visit Inpatient E&M: 90410 Init Hosp L3
[2018-10-01] MEDS: Acetaminophen 325 MG Tablet 650 MG PO (08:36)
--- NOTE | 2018-10-01 08:49 | CASEMGMT ---
Addendum entered by Sade Corbett 10/01/18 11:06: SW spoke w/Jacqueline, a new precert will be needed in order for pt to return to [facility]. Once PT/OT completed SW will fax evaluations to [facility] so she can start precert. Jacqueline to let SW know once she has precert. If precert attained SW will place green sheet on chart. Otherwise pt will need to be here until Thursday while precert is attained. EDD Mg Original Note: Addendum entered by Sade Corbett 10/01/18 09:51: SW participated in ICU rounds, confirmed w/pt he plans to return to [facility]. SW spoke w/pt after rounds about POA. Pt does not have a POA, and does not have anyone he can think of to put as POA. He has an uncle on the face sheet, but states he is in his 70's and does not want to be pt's POA. Pt's four years ago, pt states, and she was his POA. She states there is nobody else he would want to list. Pt states he does not trust many people, including his own family. Support offered. SW faxed updates to [facility]. SW still awaiting a call back from Jacqueline regarding whether or not a precert will be needed for pt to return. SW will continue to follow. EDD Mg Original Note: Pt is here from [facility]. SW called, pt has been there since July. NATALY left message for Jacqueline to call this SW back from [facility], to let SW know if precert is needed prior to pt returning. NATALY will continue to follow. EDD Mg
[2018-10-01] MEDS: DOBUTamine 500mg PM 500 MG/250 ML IV.SOLN. 15.989 MG CONT INF (09:58)
--- NOTE | 2018-10-01 10:58 | PCM.PN.HOSP ---
Patient Problems: Active and Suspected Problems (Last Reviewed 09/30/18 @ 11:55 by Keven Willingham MD) Congestive heart failure (Acute) Subjective: Feeling better. Vitals/I&O's: Vital Signs Temp Pulse Resp BP Pulse Ox 36.5 C L 80 12 98/63 96 10/01/18 09:00 10/01/18 10:00 10/01/18 10:00 10/01/18 10:00 10/01/18 10:00 Oxygen Flow Rate (L/min) 3 Oxygen Delivery Method Room Air Weight: 103.1 kg Body Mass Index (BMI) 39.1 Finger Stick Blood Glucose 87 Intake and Output for Last 24 Hours 09/29/18 09/30/18 10/01/18 23:59 23:59 23:59 Intake Total 73.7 / 73.7 115.8 / 115.8 Output Total 1875 / 1875 2500 / 2500 Balance -1801.3 / -1801.3 -2384.2 / -2384.2 General: Alert, No apparent distress HEENT: Atraumatic, Normocephalic Oral: Moist Mucosa, No Gingival or Mucosal Lesions/ Ulcerations Neck: No Nodes, Thyroid Normal Size and Texture Lungs: Clear to auscultation, Normal air movement, No rhonchi, No wheeze Cardiovascular: Regular rate, Regular Rhythm, Normal S1, Normal S2 Abdomen: Bowel Sounds Present, Soft, Non Tender, Non-Distended, Obese Extremities: No Calf Tenderness, Edema Skin: - - vernous stasis dermatitis Psych/Mental Status: Normal Affect, Appropriate Laboratory Results 09/30/18 12:35: POC Glucose 155 H 09/30/18 12:54: WBC 5.5, RBC 4.35 L, Hgb 10.9 L, Hct 36.6 L, MCV 84.1, MCH 25.1 L, MCHC 29.8 L, RDW 19.5 H, RDW Differential 58.7 H, Plt Count 162, MPV 9.7, Immature Gran % (Auto) 0.000, Neut % (Auto) 74.5 H, Lymph % (Auto) 18.6 L, [place] % (Auto) 5.8, Eos % (Auto) 0.9, Baso % (Auto) 0.2, Absolute Neuts (auto) 4.1, Absolute Lymphs (auto) 1.02, Total Counted Not Reportable 09/30/18 12:54: Sodium 140, Potassium 4.2, Chloride 105, Carbon Dioxide 29.0, Anion Gap 6, BUN 41 H, Creatinine 1.54 H, Estim Creat Clear Calc 52.44, Est GFR (MDRD) Af Amer 60, Est GFR (MDRD) Non-Af 50 L, BUN/Creatinine Ratio 26.6 H, Glucose 153 H, Calcium 8.3 L, Troponin I < 0.015 09/30/18 12:54: B-Natriuretic Peptide 446.7 H 09/30/18 12:54: PT 40.1 H, INR 4.1 H* 09/30/18 16:00: Specimen Type ART, Sample Site L Brachial, pH 7.31 L, Bicarbonate Actual 25.2, POC Total CO2 27, Base Excess -1, O2 Saturation 97, O2 % 60, ABG pCO2 50.3 H, ABG pO2 101 H, Stone Test NA, Respiration Rate 12, O2 Delivery Device Bi / C PAP, EPAP 8, IPAP 15, Blood Gas Notified Whom ED , Blood Gas Notified Time 1551 09/30/18 17:49: POC Glucose 139 H 09/30/18 23:13: POC Glucose 121 H 10/01/18 04:45: WBC 5.7, RBC 4.26 L, Hgb 10.7 L, Hct 35.6 L, MCV 83.6, MCH 25.1 L, MCHC 30.1 L, RDW 19.4 H, RDW Differential 57.4 H, Plt Count 168, MPV 9.6, Immature Gran % (Auto) 0.200, Neut % (Auto) 73.0 H, Lymph % (Auto) 14.5 L, [place] % (Auto) 10.7 H, Eos % (Auto) 1.2, Baso % (Auto) 0.4, Absolute Neuts (auto) 4.2, Absolute Lymphs (auto) 0.83, Total Counted Not Reportable 10/01/18 04:45: Sodium 142, Potassium 4.0, Chloride 104, Carbon Dioxide 30.0, Anion Gap 8, BUN 36 H, Creatinine 1.35 H, Estim Creat Clear Calc 53.78, Est GFR (MDRD) Af Amer 70, Est GFR (MDRD) Non-Af 58 L, BUN/Creatinine Ratio 26.7 H, Glucose 166 H, Calcium 8.4 L 10/01/18 04:45: PT 38.0 H, INR 3.8 H* 10/01/18 05:43: POC Glucose 103 Current Medications Acetaminophen (Tylenol) 650 mg PO Q6H PRN PRN PRN Reason: PAIN Last Admin: 10/01/18 08:36 Dose: 650 mg Dextrose (D50w Syringe) 0 gm IV X1 PRN; Protocol PRN Reason: Hypoglycemia Glucagon () 1 mg IM .X1 PRN PRN Reason: Hypoglycemia Furosemide 500 mg/ N/A 50 mls @ 1 mls/hr CONT INF .Q50H MARISEL Last Admin: 09/30/18 18:13 Dose: 1 mls/hr Dobutamine HCl/Dextrose () 500 mg in 250 mls @ 15.989 mls/hr CONT INF .[id number] MARISEL Last Admin: 10/01/18 09:58 Dose: 15.989 mls/hr Insulin Human Lispro (Humalog Kwikpen (Bkc)) 0 unit SQ ACHS MARISEL; Protocol Sodium Chloride () 5 - 15 ml IV UD PRN PRN Reason: SALINE FLUSH Medical Necessity - Tobacco Use Smoking Status: Former smoker Tobacco Use: Cigarettes Assessment/Plan All Active Problems (Last Reviewed 09/30/18 @ 11:55 by Keven Willingham MD) Congestive heart failure (Acute) History of coronary artery stent placement (Resolved 05/29/09) Altered mental status (Resolved) Pleural effusion, left (Resolved) Pneumonia (Resolved) 1. acute HFrEF improved (weight 106.6 to 103.1) EF 25% from 09/07/18 on lasix gtt cardiology following. carvedilol, spironolactone, entresto held due to hypotension 2. hypotension: likely cardiogenic stable on dobutamine 3. Acute hypoxic respiratory failure POA, was 87% on 5Liters with labored breathing, temporarily requiring BiPAP. 2/2 HF improved now on room air 4. CKD3 stable at baseline continue to monitor 5. pAfib carvedilol held due to hypotension, resume when safe anticoagulated 6. Coagulopathy no bleeding continue to hold coumadin for now. 7. VTE prophylaxis: not indicated as patient is already anticoagulated. Code Visit Inpatient E&M: 61455 Subs Hosp L2
--- NOTE | 2018-10-01 11:10 | PN_ITS ---
Patient Problems: Active and Suspected Problems (Last Reviewed 09/30/18 @ 11:55 by Keven Willingham MD) Congestive heart failure (Acute) Subjective: Feeling better. Vitals/I&O's: Vital Signs Temp Pulse Resp BP Pulse Ox 36.5 C L 80 12 98/63 96 10/01/18 09:00 10/01/18 10:00 10/01/18 10:00 10/01/18 10:00 10/01/18 10:00 Oxygen Flow Rate (L/min) 3 Oxygen Delivery Method Room Air Weight: 103.1 kg Body Mass Index (BMI) 39.1 Finger Stick Blood Glucose 87 Intake and Output for Last 24 Hours 09/29/18 09/30/18 10/01/18 23:59 23:59 23:59 Intake Total 73.7 / 73.7 115.8 / 115.8 Output Total 1875 / 1875 2500 / 2500 Balance -1801.3 / -1801.3 -2384.2 / -2384.2 General: Alert, No apparent distress HEENT: Atraumatic, Normocephalic Oral: Moist Mucosa, No Gingival or Mucosal Lesions/ Ulcerations Neck: No Nodes, Thyroid Normal Size and Texture Lungs: Clear to auscultation, Normal air movement, No rhonchi, No wheeze Cardiovascular: Regular rate, Regular Rhythm, Normal S1, Normal S2 Abdomen: Bowel Sounds Present, Soft, Non Tender, Non-Distended, Obese Extremities: No Calf Tenderness, Edema Skin: - - vernous stasis dermatitis Psych/Mental Status: Normal Affect, Appropriate Laboratory Results 09/30/18 12:35: POC Glucose 155 H 09/30/18 12:54: WBC 5.5, RBC 4.35 L, Hgb 10.9 L, Hct 36.6 L, MCV 84.1, MCH 25.1 L, MCHC 29.8 L, RDW 19.5 H, RDW Differential 58.7 H, Plt Count 162, MPV 9.7, Immature Gran % (Auto) 0.000, Neut % (Auto) 74.5 H, Lymph % (Auto) 18.6 L, [place] % (Auto) 5.8, Eos % (Auto) 0.9, Baso % (Auto) 0.2, Absolute Neuts (auto) 4.1, Absolute Lymphs (auto) 1.02, Total Counted Not Reportable 09/30/18 12:54: Sodium 140, Potassium 4.2, Chloride 105, Carbon Dioxide 29.0, Anion Gap 6, BUN 41 H, Creatinine 1.54 H, Estim Creat Clear Calc 52.44, Est GFR (MDRD) Af Amer 60, Est GFR (MDRD) Non-Af 50 L, BUN/Creatinine Ratio 26.6 H, Glucose 153 H, Calcium 8.3 L, Troponin I < 0.015 09/30/18 12:54: B-Natriuretic Peptide 446.7 H 09/30/18 12:54: PT 40.1 H, INR 4.1 H* 09/30/18 16:00: Specimen Type ART, Sample Site L Brachial, pH 7.31 L, Bicarbonate Actual 25.2, POC Total CO2 27, Base Excess -1, O2 Saturation 97, O2 % 60, ABG pCO2 50.3 H, ABG pO2 101 H, Stone Test NA, Respiration Rate 12, O2 Delivery Device Bi / C PAP, EPAP 8, IPAP 15, Blood Gas Notified Whom ED , Blood Gas Notified Time 1551 09/30/18 17:49: POC Glucose 139 H 09/30/18 23:13: POC Glucose 121 H 10/01/18 04:45: WBC 5.7, RBC 4.26 L, Hgb 10.7 L, Hct 35.6 L, MCV 83.6, MCH 25.1 L, MCHC 30.1 L, RDW 19.4 H, RDW Differential 57.4 H, Plt Count 168, MPV 9.6, Immature Gran % (Auto) 0.200, Neut % (Auto) 73.0 H, Lymph % (Auto) 14.5 L, [place] % (Auto) 10.7 H, Eos % (Auto) 1.2, Baso % (Auto) 0.4, Absolute Neuts (auto) 4.2, Absolute Lymphs (auto) 0.83, Total Counted Not Reportable 10/01/18 04:45: Sodium 142, Potassium 4.0, Chloride 104, Carbon Dioxide 30.0, Anion Gap 8, BUN 36 H, Creatinine 1.35 H, Estim Creat Clear Calc 53.78, Est GFR (MDRD) Af Amer 70, Est GFR (MDRD) Non-Af 58 L, BUN/Creatinine Ratio 26.7 H, Glucose 166 H, Calcium 8.4 L 10/01/18 04:45: PT 38.0 H, INR 3.8 H* 10/01/18 05:43: POC Glucose 103 Current Medications Acetaminophen (Tylenol) 650 mg PO Q6H PRN PRN PRN Reason: PAIN Last Admin: 10/01/18 08:36 Dose: 650 mg Dextrose (D50w Syringe) 0 gm IV X1 PRN; Protocol PRN Reason: Hypoglycemia Glucagon () 1 mg IM .X1 PRN PRN Reason: Hypoglycemia Furosemide 500 mg/ N/A 50 mls @ 1 mls/hr CONT INF .Q50H MARISEL Last Admin: 09/30/18 18:13 Dose: 1 mls/hr Dobutamine HCl/Dextrose () 500 mg in 250 mls @ 15.989 mls/hr CONT INF .[id number] MARISEL Last Admin: 10/01/18 09:58 Dose: 15.989 mls/hr Insulin Human Lispro (Humalog Kwikpen (Bkc)) 0 unit SQ ACHS MARISEL; Protocol Sodium Chloride () 5 - 15 ml IV UD PRN PRN Reason: SALINE FLUSH Medical Necessity - Tobacco Use Smoking Status: Former smoker Tobacco Use: Cigarettes Assessment/Plan All Active Problems (Last Reviewed 09/30/18 @ 11:55 by Keven Willingham MD) Congestive heart failure (Acute) History of coronary artery stent placement (Resolved 05/29/09) Altered mental status (Resolved) Pleural effusion, left (Resolved) Pneumonia (Resolved) 1. acute HFrEF * improved (weight 106.6 to 103.1) * EF 25% from 09/07/18 * on lasix gtt * cardiology following. * carvedilol, spironolactone, entresto held due to hypotension 2. hypotension: * likely cardiogenic * stable * on dobutamine 3. Acute hypoxic respiratory failure * POA, was 87% on 5Liters with labored breathing, temporarily requiring BiPAP. * 2/2 HF * improved * now on room air 4. CKD3 * stable * at baseline * continue to monitor 5. pAfib * carvedilol held due to hypotension, resume when safe * anticoagulated 6. Coagulopathy * no bleeding * continue to hold coumadin for now. 7. VTE prophylaxis: not indicated as patient is already anticoagulated. Code Visit Inpatient E&M: 87116 Subs Hosp L2
--- NOTE | 2018-10-01 11:33 | NURSING ---
wound photo: left medial lower leg
--- NOTE | 2018-10-01 11:34 | NURSING ---
wound photo: left foot
[2018-10-01 12:05] LABS: Bedside Glucose 183 mg/dL (70-110)
[2018-10-01] MEDS: Insulin Lispro 100 UNIT/ML INSULN.PEN SQ ×3 (12:46→21:37)
--- NOTE | 2018-10-01 12:47 | PCM.PN.CARD ---
Subjectve: Patient seen and evaluated. Appears to be breathing much better. Had significant diuresis overnight. Objective: Vital Signs Temp Pulse Resp BP Pulse Ox 98.2 F 80 18 101/53 L 100 10/01/18 12:00 10/01/18 12:00 10/01/18 12:00 10/01/18 12:00 10/01/18 12:00 Oxygen Flow Rate (L/min) 3 Oxygen Delivery Method Room Air Weight: 227 lb 4.745 oz Body Mass Index (BMI) 39.1 Finger Stick Blood Glucose 87 Intake and Output for Last 24 Hours 09/29/18 09/30/18 10/01/18 23:59 23:59 23:59 Intake Total 73.7 / 73.7 788.8 / 788.8 Output Total 1875 / 1875 3800 / 3800 Balance -1801.3 / -1801.3 -3011.2 / -3011.2 General: Awake, Alert, Oriented x 3 HEENT: PERRL, EOMI, Sclera Non Icteric Neck: Supple, Good ROM, No Lymph Node Enlargement Lungs: Diminished Mario Bases, Rales - Mario Bases Cardiovascular: Regular Rhythm, Normal S1, Normal S2, No Murmurs, No Rubs, No Gallops Vascular: No Carotid Bruits, Normal Femoral Pulses, Normal Radial Pulses, Normal Dorsalis Pedal Pulse, Normal Posterior Tibial Pulses Abdomen: Bowel Sounds Present, Soft, Non Tender, No HSM, No Organomegaly Extremities: No Cyanosis, No Clubbing, No edema, Bilateral Edema +3 Musculoskeletal: No Erythema Skin: No Rashes Lymphatic: No Lymph Node Enlargement Neurological: No Focal Motor or Sensory Deficit Psych/Mental Status: Appropriate 09/30/18 12:54: WBC 5.5, RBC 4.35 L, Hgb 10.9 L, Hct 36.6 L, MCV 84.1, MCH 25.1 L, MCHC 29.8 L, RDW 19.5 H, RDW Differential 58.7 H, Plt Count 162, MPV 9.7, Immature Gran % (Auto) 0.000, Neut % (Auto) 74.5 H, Lymph % (Auto) 18.6 L, [place] % (Auto) 5.8, Eos % (Auto) 0.9, Baso % (Auto) 0.2, Absolute Neuts (auto) 4.1, Total Counted Not Reportable 09/30/18 12:54: Sodium 140, Potassium 4.2, Chloride 105, Carbon Dioxide 29.0, Anion Gap 6, BUN 41 H, Creatinine 1.54 H, Est GFR (MDRD) Af Amer 60, Est GFR (MDRD) Non-Af 50 L, BUN/Creatinine Ratio 26.6 H, Glucose 153 H, Calcium 8.3 L, Troponin I < 0.015 09/30/18 12:54: B-Natriuretic Peptide 446.7 H 09/30/18 12:54: PT 40.1 H, INR 4.1 H* 09/30/18 16:00: pH 7.31 L, Bicarbonate Actual 25.2, POC Total CO2 27, Base Excess -1, O2 Saturation 97, ABG pCO2 50.3 H, ABG pO2 101 H, Stone Test NA 10/01/18 04:45: WBC 5.7, RBC 4.26 L, Hgb 10.7 L, Hct 35.6 L, MCV 83.6, MCH 25.1 L, MCHC 30.1 L, RDW 19.4 H, RDW Differential 57.4 H, Plt Count 168, MPV 9.6, Immature Gran % (Auto) 0.200, Neut % (Auto) 73.0 H, Lymph % (Auto) 14.5 L, [place] % (Auto) 10.7 H, Eos % (Auto) 1.2, Baso % (Auto) 0.4, Absolute Neuts (auto) 4.2, Total Counted Not Reportable 10/01/18 04:45: Sodium 142, Potassium 4.0, Chloride 104, Carbon Dioxide 30.0, Anion Gap 8, BUN 36 H, Creatinine 1.35 H, Est GFR (MDRD) Af Amer 70, Est GFR (MDRD) Non-Af 58 L, BUN/Creatinine Ratio 26.7 H, Glucose 166 H, Calcium 8.4 L 10/01/18 04:45: PT 38.0 H, INR 3.8 H* Rhythm: EKG: ECHO: Stress Test: Cardiac Cath: PCI: CT Surgery: Holter monitor: EPS: PPM: CXR: Chest CT Scan: Medical Necessity - Tobacco Use Smoking Status: Former smoker Tobacco Use: Cigarettes Assessment/Plan 1. Acute hypoxic respiratory failure due to acute on chronic HFrEF. The exact precipitating factor on the above is not entirely clear at this time. He has had significant diuresis overnight and is breathing much better. BNP is ~ 447 CXR shows pulmonary edema with small bilateral pleural effusions 2. Acute on chronic HFrEF has known EF of 25% per echo, with ICD in place. He definitely has anasarca. will continue IV lasix drip monitor input and output fluid restriction to 1500cc daily daily weight check We will hold off on Entresto and spironolactone for now. He has been started on a low dose fixed dose dobutamine which he is tolerating quite well without any tachycardia and his blood pressure has been holding. We will continue this for another 24 to 48 hours. 3. CAD and ischemic cardiomyopathy s/p AICD. EF is 25% per echo in 09/10, with moderately dilated LV and regional wall motion abnormalities on aspirin, plavix, carvedilol and entresto. He may eventually need a relook at his coronary anatomy to make sure that this is not responsible for his recent decline 4. paroxysmal afib: rate and rhythm controlled. ON metoprolol and coumadin. 5. CAD: on aspirin, plavix and atorvastatin 6. Status post ICD implantation His ICD has been interrogated recently and there is been no significant abnormality and no VT or VF episodes. He will continue to follow-up in our pacemaker clinic. I do not see a contraindication to him moving to the progressive care unit. Overall his prognosis appears to be guarded due to his reduced ejection fraction and his low blood pressure.
--- NOTE | 2018-10-01 12:50 | PN.CARD_ITS ---
Subjectve: Patient seen and evaluated. Appears to be breathing much better. Had significant diuresis overnight. Objective: Vital Signs Temp Pulse Resp BP Pulse Ox 98.2 F 80 18 101/53 L 100 10/01/18 12:00 10/01/18 12:00 10/01/18 12:00 10/01/18 12:00 10/01/18 12:00 Oxygen Flow Rate (L/min) 3 Oxygen Delivery Method Room Air Weight: 227 lb 4.745 oz Body Mass Index (BMI) 39.1 Finger Stick Blood Glucose 87 Intake and Output for Last 24 Hours 09/29/18 09/30/18 10/01/18 23:59 23:59 23:59 Intake Total 73.7 / 73.7 788.8 / 788.8 Output Total 1875 / 1875 3800 / 3800 Balance -1801.3 / -1801.3 -3011.2 / -3011.2 General: Awake, Alert, Oriented x 3 HEENT: PERRL, EOMI, Sclera Non Icteric Neck: Supple, Good ROM, No Lymph Node Enlargement Lungs: Diminished Mario Bases, Rales - Mario Bases Cardiovascular: Regular Rhythm, Normal S1, Normal S2, No Murmurs, No Rubs, No Gallops Vascular: No Carotid Bruits, Normal Femoral Pulses, Normal Radial Pulses, Normal Dorsalis Pedal Pulse, Normal Posterior Tibial Pulses Abdomen: Bowel Sounds Present, Soft, Non Tender, No HSM, No Organomegaly Extremities: No Cyanosis, No Clubbing, No edema, Bilateral Edema +3 Musculoskeletal: No Erythema Skin: No Rashes Lymphatic: No Lymph Node Enlargement Neurological: No Focal Motor or Sensory Deficit Psych/Mental Status: Appropriate 09/30/18 12:54: WBC 5.5, RBC 4.35 L, Hgb 10.9 L, Hct 36.6 L, MCV 84.1, MCH 25.1 L, MCHC 29.8 L, RDW 19.5 H, RDW Differential 58.7 H, Plt Count 162, MPV 9.7, Immature Gran % (Auto) 0.000, Neut % (Auto) 74.5 H, Lymph % (Auto) 18.6 L, [place] % (Auto) 5.8, Eos % (Auto) 0.9, Baso % (Auto) 0.2, Absolute Neuts (auto) 4.1, Total Counted Not Reportable 09/30/18 12:54: Sodium 140, Potassium 4.2, Chloride 105, Carbon Dioxide 29.0, Anion Gap 6, BUN 41 H, Creatinine 1.54 H, Est GFR (MDRD) Af Amer 60, Est GFR (MDRD) Non-Af 50 L, BUN/Creatinine Ratio 26.6 H, Glucose 153 H, Calcium 8.3 L, Troponin I < 0.015 09/30/18 12:54: B-Natriuretic Peptide 446.7 H 09/30/18 12:54: PT 40.1 H, INR 4.1 H* 09/30/18 16:00: pH 7.31 L, Bicarbonate Actual 25.2, POC Total CO2 27, Base Excess -1, O2 Saturation 97, ABG pCO2 50.3 H, ABG pO2 101 H, Stone Test NA 10/01/18 04:45: WBC 5.7, RBC 4.26 L, Hgb 10.7 L, Hct 35.6 L, MCV 83.6, MCH 25.1 L, MCHC 30.1 L, RDW 19.4 H, RDW Differential 57.4 H, Plt Count 168, MPV 9.6, Immature Gran % (Auto) 0.200, Neut % (Auto) 73.0 H, Lymph % (Auto) 14.5 L, [place] % (Auto) 10.7 H, Eos % (Auto) 1.2, Baso % (Auto) 0.4, Absolute Neuts (auto) 4.2, Total Counted Not Reportable 10/01/18 04:45: Sodium 142, Potassium 4.0, Chloride 104, Carbon Dioxide 30.0, Anion Gap 8, BUN 36 H, Creatinine 1.35 H, Est GFR (MDRD) Af Amer 70, Est GFR (MDRD) Non-Af 58 L, BUN/Creatinine Ratio 26.7 H, Glucose 166 H, Calcium 8.4 L 10/01/18 04:45: PT 38.0 H, INR 3.8 H* Rhythm: EKG: ECHO: Stress Test: Cardiac Cath: PCI: CT Surgery: Holter monitor: EPS: PPM: CXR: Chest CT Scan: Medical Necessity - Tobacco Use Smoking Status: Former smoker Tobacco Use: Cigarettes Assessment/Plan 1. Acute hypoxic respiratory failure due to acute on chronic HFrEF. The exact precipitating factor on the above is not entirely clear at this time. He has had significant diuresis overnight and is breathing much better. * BNP is ~ 447 * CXR shows pulmonary edema with small bilateral pleural effusions * 2. Acute on chronic HFrEF * has known EF of 25% per echo, with ICD in place. He definitely has anasarca. * will continue IV lasix drip * monitor input and output * fluid restriction to 1500cc daily * daily weight check * We will hold off on Entresto and spironolactone for now. * He has been started on a low dose fixed dose dobutamine which he is tolerating quite well without any tachycardia and his blood pressure has been holding. We will continue this for another 24 to 48 hours. 3. CAD and ischemic cardiomyopathy * s/p AICD. EF is 25% per echo in 09/10, with moderately dilated LV and regional wall motion abnormalities * on aspirin, plavix, carvedilol and entresto. * He may eventually need a relook at his coronary anatomy to make sure that this is not responsible for his recent decline 4. paroxysmal afib: rate and rhythm controlled. ON metoprolol and coumadin. 5. CAD: on aspirin, plavix and atorvastatin 6. Status post ICD implantation * His ICD has been interrogated recently and there is been no significant abnormality and no VT or VF episodes. He will continue to follow-up in our pacemaker clinic. * I do not see a contraindication to him moving to the progressive care unit. Overall his prognosis appears to be guarded due to his reduced ejection fraction and his low blood pressure.
[2018-10-01 17:06] LABS: Bedside Glucose 200 mg/dL (70-110)
[2018-10-01] MEDS: Furosemide 500 MG in Empty Viaflex 50 mL 1 EACH CONT INF (21:47)
[2018-10-01 21:50] LABS: Bedside Glucose 198 mg/dL (70-110)
[2018-10-02] VITALS (33 sets, daily range): BP systolic 96–121; BP diastolic 56–85; PULSE 79–99; RESP 12–18; TEMP 36.6–37; O2SAT 95–100
[2018-10-02] MEDS: DOBUTamine 500mg PM 500 MG/250 ML IV.SOLN. 15.989 MG CONT INF ×2 (01:03→17:36)
[2018-10-02 05:59] LABS: International Normalized Ratio 3.2; Prothrombin Time (Protime)PT. 32.8 SECONDS (11.7-14.9)
[2018-10-02 06:20] LABS: Anion Gap 8 (5-15); BUN 30 mg/dL (7-18); BUN/Creat Ratio 24.6 RATIO (10-20); Calcium,Total 8.5 mg/dL (8.5-10.1); Chloride 100 mmol/L (98-107); Creatinine, Serum 1.22 mg/dL (0.70-1.30); EST Glomerular Filtration Rate 65 mL/min (>60); Est Glom Filt Rate - Afr Amer 79 mL/min (>60); Estimated Creatinine Clearance 59.51 ml/min; Glucose 172 mg/dL (74-106); Potassium 3.5 mmol/L (3.5-5.1); Sodium Level 138 mmol/L (136-145)
[2018-10-02 07:01] LABS: Bedside Glucose 178 mg/dL (70-110)
[2018-10-02] MEDS: Insulin Lispro 100 UNIT/ML INSULN.PEN SQ (07:03)
--- NOTE | 2018-10-02 07:06 | PCM.PN.PUL ---
Patient Problems: Active and Suspected Problems (Last Reviewed 09/30/18 @ 11:55 by Keven Willingham MD) Congestive heart failure (Acute) Subjective: The patient was seen and examined at the bedside this morning. Events from the last 24 hours have been reviewed. The patient is currently afebrile, hemodynamically stable and maintaining appropriate oxygen saturations on room air. The patient remains on both dobutamine and Lasix infusions. INR was noted to be 3.2 this morning. Creatinine has improved. The patient denies the presence of shortness of breath. Objective: The patient's most recent lab work, culture data and imaging studies have all been personally reviewed. - Physical Exam General: Alert, Cooperative, No apparent distress HEENT: Atraumatic, PERRLA, Normocephalic Oral: No Gingival or Mucosal Lesions/ Ulcerations Neck: Supple, No Nodes, Trachea Midline Lungs: No rhonchi, No wheeze, Diminished Cardiovascular: Regular rate, Regular Rhythm, Normal S1, Normal S2, Murmur Abdomen: Bowel Sounds Present, Soft, Non Tender, Obese Extremities: No clubbing, No cyanosis, Edema Skin: - - No significant change from previous. Musculoskeletal: No Tenderness to Palpation of Joints or Extremities, No Muscle Wasting Lymphatic: No Cervical, Supraclavicular, or Inguinal Adenopathy Neurological: Cranial nerves II-XII grossly intact, Neuro grossly intact Psych/Mental Status: Normal Affect, Appropriate Vital Signs Temp Pulse Resp BP Pulse Ox 97.9 F 89 17 121/69 H 98 10/02/18 04:00 10/02/18 07:00 10/02/18 07:00 10/02/18 07:00 10/02/18 07:00 Oxygen Flow Rate (L/min) 3 Oxygen Delivery Method Room Air Weight: 227 lb 4.745 oz Body Mass Index (BMI) 39.1 Finger Stick Blood Glucose 87 Intake and Output for Last 24 Hours 09/30/18 10/01/18 10/02/18 23:59 23:59 23:59 Intake Total 73.7 / 73.7 1028.8 / 1028.8 415 / 415 Output Total 1875 / 1875 4800 / 4800 5100 / 5100 Balance -1801.3 / -1801.3 -3771.2 / -3771.2 -4685 / -4685 Laboratory Tests Past 24 Hrs 10/02/18 10/02/18 05:30 05:30 PT 32.8 H INR 3.2 Sodium 138 Potassium 3.5 Chloride 100 Carbon Dioxide 30.0 Anion Gap 8 BUN 30 H Creatinine 1.22 Estim Creat Clear Calc 59.51 Est GFR (MDRD) Af Amer 79 Est GFR (MDRD) Non-Af 65 BUN/Creatinine Ratio 24.6 H Glucose 172 H Calcium 8.5 POC Glucose 10/02/18 10/01/18 10/01/18 06:46 21:35 16:45 POC Glucose 178 H 198 H 200 H 10/01/18 11:59 POC Glucose 183 H Clinical Impression(s) from Imaging Studies Chest X-Ray 09/30/18 13:04 IMPRESSION: Findings in keeping with CHF. Bibasilar atelectasis and small bilateral effusions. Electronically Signed: Mann Moi, at 13:50 EDT , Service support , Medical Necessity - Tobacco Use Smoking Status: Former smoker Tobacco Use: Cigarettes Assessment/Plan All Active Problems (Last Reviewed 09/30/18 @ 11:55 by Keven Willingham MD) Congestive heart failure (Acute) History of coronary artery stent placement (Resolved 05/29/09) Altered mental status (Resolved) Pleural effusion, left (Resolved) Pneumonia (Resolved) RECOMMENDATIONS: 1. Continue Lasix and dobutamine per cardiology recommendations. 2. Encourage incentive spirometer use while in bed. 3. Mobilize patient as tolerated. Physical therapy to evaluate patient. 4. Continue BiPAP therapy with naps and nightly. 5. Recommend outpatient pulmonary follow-up so that a re-titration polysomnogram can be completed. IMPRESSIONS: 1. Acute Hypoxemic Respiratory Failure 2/2 Decompensated Heart Failure Resolved at this time. The patient presented to the hospital with a CHF exacerbation leading to respiratory decompensation and the need for noninvasive positive pressure ventilatory support. The patient has been maintained on a Lasix drip and BiPAP therapy with subsequent improvement in clinical state noted. The patient has been weaned from BiPAP therapy and is maintaining appropriate oxygen saturations on room air. Continue management of his underlying heart failure per cardiology recommendations. Recommend incentive spirometer use while in bed. In addition, given the patient's known history of obstructive sleep apnea, recommend utilization of BiPAP therapy with naps and nightly. 2. Ischemic cardiomyopathy status post PCI/known atrial fibrillation/ICD in situ Continue primary medical management per cardiology recommendations. 3. Obstructive sleep apnea, noncompliant with nocturnal Pap therapy. The patient does report having been diagnosed with obstructive sleep apnea a multitude of years ago. However, he reports that his machine is no longer functional and he has therefore been noncompliant with the use of nocturnal Pap therapy for greater than 2 years. Recommend outpatient pulmonary follow-up so that a re-titration polysomnogram can be completed. In the interim, recommend continuing BiPAP therapy empirically with sleep and naps. 4. Anemia/hypertension/hyperlipidemia/diabetes mellitus Complicates care, management, recovery and prognosis. Continue home medications as indicated. Recommend physical therapy evaluation. This note was generated with [employer] dictation software. It may contain incorrect words, spelling, and punctuation that were not noted in checking the note before signing. DISPOSITION: Given the patient's lack of further ICU/pulmonary needs, will sign off. Please have the patient follow-up in the pulmonary medicine clinic within 2 weeks of his discharge so that a re-titration polysomnogram can be completed. Code Visit Inpatient E&M: 81027 Subs Hosp L2
--- NOTE | 2018-10-02 08:57 | PN.CARD_ITS ---
Subjectve: Patient continues to improve slowly, notes decreased scrotal edema, decreased lower extremity edema, approximately net -5 L last night, and 4.8 L the night before. Reports improved breathing, but still not completely able to lay down flat. Telemetry shows atrial fibrillation with controlled ventricular response and rare PVCs. Objective: Vital Signs Temp Pulse Resp BP Pulse Ox 97.9 F 80 14 117/62 99 10/02/18 04:00 10/02/18 08:00 10/02/18 08:00 10/02/18 08:00 10/02/18 08:00 Oxygen Flow Rate (L/min) 3 Oxygen Delivery Method Room Air Weight: 227 lb 4.745 oz Body Mass Index (BMI) 39.1 Finger Stick Blood Glucose 87 Intake and Output for Last 24 Hours 09/30/18 10/01/18 10/02/18 23:59 23:59 23:59 Intake Total 73.7 / 73.7 1028.8 / 1028.8 415 / 415 Output Total 1875 / 1875 4800 / 4800 5100 / 5100 Balance -1801.3 / -1801.3 -3771.2 / -3771.2 -4685 / -4685 General: Awake, Alert, Oriented x 3 HEENT: PERRL, EOMI, Sclera Non Icteric Neck: Supple, Good ROM, No Lymph Node Enlargement Lungs: Clear to auscultation Cardiovascular: Irregular Rhythm, Normal S1, Normal S2, No Rubs, No Gallops Murmur Murmur: Grade 2/6, Holosystolic Vascular: No Carotid Bruits, Normal Femoral Pulses, Normal Radial Pulses, Normal Dorsalis Pedal Pulse, Normal Posterior Tibial Pulses Abdomen: Bowel Sounds Present, Soft, Non Tender, No HSM, No Organomegaly Extremities: No Cyanosis, No Clubbing, No edema Neurological: No Focal Motor or Sensory Deficit 10/02/18 05:30: PT 32.8 H, INR 3.2 10/02/18 05:30: Sodium 138, Potassium 3.5, Chloride 100, Carbon Dioxide 30.0, Anion Gap 8, BUN 30 H, Creatinine 1.22, Est GFR (MDRD) Af Amer 79, Est GFR (MDRD) Non-Af 65, BUN/Creatinine Ratio 24.6 H, Glucose 172 H, Calcium 8.5 Rhythm: EKG: ECHO: LVEF of 25%. RVSP is increased from 35 to 67 mmHg. Stress Test: Cardiac Cath: PCI: CT Surgery: Holter monitor: EPS: PPM: CXR: Chest CT Scan: Medical Necessity - Tobacco Use Smoking Status: Former smoker Tobacco Use: Cigarettes Assessment/Plan 1. Acute on chronic congestive heart failure: The patient presents with progressively worsening dyspnea on exertion and what may be dietary indiscretion by eating potato chips. He is pulmonary pressures of increased from 35-67 by recent echocardiogram and his LVEF has remained the same at 25%. Patient has not had a repeat catheterization to his knowledge since his myocardial infarction in 2008. Patient underwent AICD in 2015, and a search of our database indicated no repeat catheterization. Once the patient has been optimized from a clinical standpoint and a fluid standpoint I would recommend repeat left heart catheterization in the very least and perhaps a right heart catheterization to determine his pulmonary pressures and confirm that they are severely elevated. His Coreg has been held as he is on IV dobutamine and IV Lasix drip. Would recommend continuing to hold his Coreg until he is optimized from a fluid jack dpoint and then restarted at 3.125 mill grams p.o. twice daily. Recommend continuing 1500 cc fluid restriction daily. I recommend another day of IV dobutamine and IV Lasix at the current doses in or pau to facilitate ongoing diuresis. Would recommend potassium replacement to keep him above 4.0. In addition I would recommend restarting his Entresto to assist with afterload reduction at his previous dose. 2. Atrial fibrillation: Patient is on chronic Coumadin therapy for both atrial fibrillation despite his ablation, as well as LV dysfunction which is severe. His Coumadin has been held and his INR is trending downwards. Would recommend continuing to hold his Coumadin and would proceed with left heart catheterization once his INR is less than 1.6. Patient may require bridging with subcu Lovenox until his catheterization once his INR drops below 2.0. 3. AICD: The patient has had no AICD firings. 4. Thank you very much for the opportunity to participate in the cardiac care of your patient. Code Visit Inpatient E&M: 31630 Subs Hosp L2
[2018-10-02] MEDS: Clopidogrel Bisulfate 75 MG Tablet PO (10:38)
[2018-10-02] MEDS: SACUBITRIL/VALSARTAN 24/26 MG TABLET 1 EACH PO ×2 (10:38→22:56)
[2018-10-02 11:35] LABS: Bedside Glucose 183 mg/dL (70-110)
--- NOTE | 2018-10-02 12:00 | CASEMGMT ---
NATALY faxed PT/OT to [facility]. NATALY to follow up Thursday w/Jacqueline at [facility] and send updates so precert can be started on Thursday. EDD Mg
--- NOTE | 2018-10-02 14:27 | PCM.PN.HOSP ---
Patient Problems: Active and Suspected Problems (Last Reviewed 09/30/18 @ 11:55 by Keven Willingham MD) Congestive heart failure (Acute) Subjective: Some abdominal bloating and nausea. Not eating much due to the nausea--no vomiting. Vitals/I&O's: Vital Signs Temp Pulse Resp BP Pulse Ox 36.6 C 80 14 106/71 96 10/02/18 14:00 10/02/18 14:00 10/02/18 14:00 10/02/18 14:00 10/02/18 14:00 Oxygen Flow Rate (L/min) 3 Oxygen Delivery Method Room Air Weight: 95.4 kg Body Mass Index (BMI) 39.1 Finger Stick Blood Glucose 87 Intake and Output for Last 24 Hours 09/30/18 10/01/18 10/02/18 23:59 23:59 23:59 Intake Total 73.7 / 73.7 1028.8 / 1028.8 1175 / 1175 Output Total 1875 / 1875 4800 / 4800 6800 / 6800 Balance -1801.3 / -1801.3 -3771.2 / -3771.2 -5625 / -5625 General: Alert, No apparent distress HEENT: Atraumatic, Normocephalic Oral: Moist Mucosa, No Gingival or Mucosal Lesions/ Ulcerations Neck: No Nodes, Thyroid Normal Size and Texture Lungs: Clear to auscultation, Normal air movement, No rhonchi, No wheeze Cardiovascular: Regular rate, Regular Rhythm, Normal S1, Normal S2, No murmurs Abdomen: Bowel Sounds Present, Soft, Non Tender, Non-Distended Extremities: No edema, No Calf Tenderness Skin: No rashes, No breakdown Musculoskeletal: No Tenderness to Palpation of Joints or Extremities, No Muscle Wasting Psych/Mental Status: Normal Affect, Appropriate Laboratory Results 10/01/18 16:45: POC Glucose 200 H 10/01/18 21:35: POC Glucose 198 H 10/02/18 05:30: PT 32.8 H, INR 3.2 10/02/18 05:30: Sodium 138, Potassium 3.5, Chloride 100, Carbon Dioxide 30.0, Anion Gap 8, BUN 30 H, Creatinine 1.22, Estim Creat Clear Calc 59.51, Est GFR (MDRD) Af Amer 79, Est GFR (MDRD) Non-Af 65, BUN/Creatinine Ratio 24.6 H, Glucose 172 H, Calcium 8.5 10/02/18 06:46: POC Glucose 178 H 10/02/18 11:31: POC Glucose 183 H Current Medications Acetaminophen (Tylenol) 650 mg PO Q6H PRN PRN PRN Reason: PAIN Last Admin: 10/01/18 08:36 Dose: 650 mg Clopidogrel Bisulfate (Plavix) 75 mg PO DAILY [facility] Last Admin: 10/02/18 10:38 Dose: 75 mg Dextrose (D50w Syringe) 0 gm IV X1 PRN; Protocol PRN Reason: Hypoglycemia Glucagon () 1 mg IM .X1 PRN PRN Reason: Hypoglycemia Furosemide 500 mg/ N/A 50 mls @ 1 mls/hr CONT INF .Q50H [facility] Last Admin: 10/01/18 21:47 Dose: 1 mls/hr Dobutamine HCl/Dextrose () 500 mg in 250 mls @ 15.989 mls/hr CONT INF .[id number] [facility] Last Admin: 10/02/18 01:03 Dose: 15.989 mls/hr Insulin Human Lispro (Humalog Kwikpen (Bkc)) 0 unit SQ ACHS [facility]; Protocol Last Admin: 10/02/18 12:34 Dose: Not Given Sodium Chloride () 5 - 15 ml IV UD PRN PRN Reason: SALINE FLUSH Tamsulosin HCl (Flomax) 0.4 mg PO DAILY@1730 [facility] Medical Necessity - Tobacco Use Smoking Status: Former smoker Tobacco Use: Cigarettes Assessment/Plan All Active Problems (Last Reviewed 09/30/18 @ 11:55 by Keven Willingham MD) Congestive heart failure (Acute) History of coronary artery stent placement (Resolved 05/29/09) Altered mental status (Resolved) Pleural effusion, left (Resolved) Pneumonia (Resolved) 1. acute HFrEF improved (weight 106.6 to 103.1) EF 25% from 09/07/18 on lasix gtt cardiology following. carvedilol, spironolactone, entresto held due to hypotension 2. hypotension: likely cardiogenic stable on dobutamine 3. Acute hypoxic respiratory failure POA, was 87% on 5Liters with labored breathing, temporarily requiring BiPAP. 2/2 HF improved now on room air 4. CKD3 stable at baseline continue to monitor 5. pAfib carvedilol held due to hypotension, resume when safe anticoagulated 6. Coagulopathy no bleeding continue to hold coumadin for now. 7. VTE prophylaxis: not indicated as patient is already anticoagulated.
--- NOTE | 2018-10-02 14:33 | PN_ITS ---
Patient Problems: Active and Suspected Problems (Last Reviewed 09/30/18 @ 11:55 by Keven Willingham MD) Congestive heart failure (Acute) Subjective: Some abdominal bloating and nausea. Not eating much due to the nausea--no vomiting. Vitals/I&O's: Vital Signs Temp Pulse Resp BP Pulse Ox 36.6 C 80 14 106/71 96 10/02/18 14:00 10/02/18 14:00 10/02/18 14:00 10/02/18 14:00 10/02/18 14:00 Oxygen Flow Rate (L/min) 3 Oxygen Delivery Method Room Air Weight: 95.4 kg Body Mass Index (BMI) 39.1 Finger Stick Blood Glucose 87 Intake and Output for Last 24 Hours 09/30/18 10/01/18 10/02/18 23:59 23:59 23:59 Intake Total 73.7 / 73.7 1028.8 / 1028.8 1175 / 1175 Output Total 1875 / 1875 4800 / 4800 6800 / 6800 Balance -1801.3 / -1801.3 -3771.2 / -3771.2 -5625 / -5625 General: Alert, No apparent distress HEENT: Atraumatic, Normocephalic Oral: Moist Mucosa, No Gingival or Mucosal Lesions/ Ulcerations Neck: No Nodes, Thyroid Normal Size and Texture Lungs: Clear to auscultation, Normal air movement, No rhonchi, No wheeze Cardiovascular: Regular rate, Regular Rhythm, Normal S1, Normal S2, No murmurs Abdomen: Bowel Sounds Present, Soft, Non Tender, Non-Distended Extremities: No edema, No Calf Tenderness Skin: No rashes, No breakdown Musculoskeletal: No Tenderness to Palpation of Joints or Extremities, No Muscle Wasting Psych/Mental Status: Normal Affect, Appropriate Laboratory Results 10/01/18 16:45: POC Glucose 200 H 10/01/18 21:35: POC Glucose 198 H 10/02/18 05:30: PT 32.8 H, INR 3.2 10/02/18 05:30: Sodium 138, Potassium 3.5, Chloride 100, Carbon Dioxide 30.0, Anion Gap 8, BUN 30 H, Creatinine 1.22, Estim Creat Clear Calc 59.51, Est GFR (MDRD) Af Amer 79, Est GFR (MDRD) Non-Af 65, BUN/Creatinine Ratio 24.6 H, Glucose 172 H, Calcium 8.5 10/02/18 06:46: POC Glucose 178 H 10/02/18 11:31: POC Glucose 183 H Current Medications Acetaminophen (Tylenol) 650 mg PO Q6H PRN PRN PRN Reason: PAIN Last Admin: 10/01/18 08:36 Dose: 650 mg Clopidogrel Bisulfate (Plavix) 75 mg PO DAILY [facility] Last Admin: 10/02/18 10:38 Dose: 75 mg Dextrose (D50w Syringe) 0 gm IV X1 PRN; Protocol PRN Reason: Hypoglycemia Glucagon () 1 mg IM .X1 PRN PRN Reason: Hypoglycemia Furosemide 500 mg/ N/A 50 mls @ 1 mls/hr CONT INF .Q50H [facility] Last Admin: 10/01/18 21:47 Dose: 1 mls/hr Dobutamine HCl/Dextrose () 500 mg in 250 mls @ 15.989 mls/hr CONT INF .[id number] [facility] Last Admin: 10/02/18 01:03 Dose: 15.989 mls/hr Insulin Human Lispro (Humalog Kwikpen (Bkc)) 0 unit SQ ACHS [facility]; Protocol Last Admin: 10/02/18 12:34 Dose: Not Given Sodium Chloride () 5 - 15 ml IV UD PRN PRN Reason: SALINE FLUSH Tamsulosin HCl (Flomax) 0.4 mg PO DAILY@1730 [facility] Medical Necessity - Tobacco Use Smoking Status: Former smoker Tobacco Use: Cigarettes Assessment/Plan All Active Problems (Last Reviewed 09/30/18 @ 11:55 by Keven Willingham MD) Congestive heart failure (Acute) History of coronary artery stent placement (Resolved 05/29/09) Altered mental status (Resolved) Pleural effusion, left (Resolved) Pneumonia (Resolved) 1. acute HFrEF * improved (weight 106.6 to 103.1) * EF 25% from 09/07/18 * on lasix gtt * cardiology following. * carvedilol, spironolactone, entresto held due to hypotension 2. hypotension: * likely cardiogenic * stable * on dobutamine 3. Acute hypoxic respiratory failure * POA, was 87% on 5Liters with labored breathing, temporarily requiring BiPAP. * 2/2 HF * improved * now on room air 4. CKD3 * stable * at baseline * continue to monitor 5. pAfib * carvedilol held due to hypotension, resume when safe * anticoagulated 6. Coagulopathy * no bleeding * continue to hold coumadin for now. 7. VTE prophylaxis: not indicated as patient is already anticoagulated.
[2018-10-02] MEDS: Acetaminophen 325 MG Tablet 650 MG PO (16:47)
[2018-10-02] MEDS: Ferrous Sulfate 325 MG Tablet PO (16:57)
[2018-10-02] MEDS: Tamsulosin HCl 0.4 MG Capsule PO (16:57)
[2018-10-02] MEDS: Gabapentin 100 MG Capsule PO (16:57)
[2018-10-02 17:10] LABS: Bedside Glucose 205 mg/dL (70-110)
[2018-10-02 20:55] LABS: Anion Gap 7 (5-15); BUN 25 mg/dL (7-18); BUN/Creat Ratio 21.9 RATIO (10-20); Calcium,Total 8.6 mg/dL (8.5-10.1); Chloride 97 mmol/L (98-107); Creatinine, Serum 1.14 mg/dL (0.70-1.30); EST Glomerular Filtration Rate 71 mL/min (>60); Est Glom Filt Rate - Afr Amer 86 mL/min (>60); Estimated Creatinine Clearance 63.69 ml/min; Glucose 156 mg/dL (74-106); Potassium 3.3 mmol/L (3.5-5.1); Sodium Level 135 mmol/L (136-145)
[2018-10-02 21:31] LABS: Bedside Glucose 155 mg/dL (70-110)
[2018-10-02] MEDS: 0.9% NaCl Peripheral Flush Adult/Peds IV (22:01)
[2018-10-02] MEDS: Ondansetron 4 MG/2 ML Vial IV (22:01)
[2018-10-02] MEDS: Atorvastatin Calcium 40 MG Tablet PO (22:56)
[2018-10-02] MEDS: Acetaminophen 500 MG Tablet 1000 MG PO (22:56)
[2018-10-03] VITALS (32 sets, daily range): BP systolic 70–105; BP diastolic 52–68; PULSE 79–86; RESP 12–20; TEMP 36.5–37.1; O2SAT 92–100
[2018-10-03 05:52] LABS: International Normalized Ratio 2.3; Prothrombin Time (Protime)PT. 24.9 SECONDS (11.7-14.9)
[2018-10-03 05:59] LABS: Anion Gap 9 (5-15); BUN 21 mg/dL (7-18); BUN/Creat Ratio 18.4 RATIO (10-20); Calcium,Total 8.8 mg/dL (8.5-10.1); Chloride 99 mmol/L (98-107); Creatinine, Serum 1.14 mg/dL (0.70-1.30); EST Glomerular Filtration Rate 71 mL/min (>60); Est Glom Filt Rate - Afr Amer 86 mL/min (>60); Estimated Creatinine Clearance 63.69 ml/min; Glucose 130 mg/dL (74-106); Potassium 3.7 mmol/L (3.5-5.1); Sodium Level 138 mmol/L (136-145)
[2018-10-03 06:56] LABS: Bedside Glucose 151 mg/dL (70-110)
[2018-10-03] MEDS: Gabapentin 100 MG Capsule PO ×3 (08:21→17:08)
[2018-10-03] MEDS: Aspirin 81 MG TAB.CHEW PO (08:21)
[2018-10-03] MEDS: Acetaminophen 500 MG Tablet 1000 MG PO ×3 (08:21→22:25)
[2018-10-03] MEDS: 0.9% NaCl Peripheral Flush Adult/Peds IV (08:22)
[2018-10-03] MEDS: Clopidogrel Bisulfate 75 MG Tablet PO (10:24)
--- NOTE | 2018-10-03 10:42 | PCM.PN.CARD ---
Subjectve: Patient feeling much better this morning, complains of some dull muscle aches in his bilateral calves with excessive diuresis. He is diuresed about 7 L last night. Telemetry showed normal sinus rhythm with a 13 beat run of nonsustained ventricular tachycardia while on dobutamine. Objective: Vital Signs Temp Pulse Resp BP Pulse Ox 98.3 F 80 13 72/52 L 92 10/03/18 10:20 10/03/18 10:20 10/03/18 10:20 10/03/18 10:20 10/03/18 10:20 Oxygen Flow Rate (L/min) 3 Oxygen Delivery Method Room Air Weight: 198 lb 6.656 oz Body Mass Index (BMI) 39.1 Finger Stick Blood Glucose 87 Intake and Output for Last 24 Hours 10/01/18 10/02/18 10/03/18 23:59 23:59 23:59 Intake Total 1028.8 / 1028.8 1819.1 / 1819.1 427 / 427 Output Total 4800 / 4800 9000 / 9000 3125 / 3125 Balance -3771.2 / -3771.2 -7180.9 / -7180.9 -2698 / -2698 General: Awake, Alert, Oriented x 3 HEENT: PERRL, EOMI, Sclera Non Icteric Neck: Supple, Good ROM, No Lymph Node Enlargement Lungs: Clear to auscultation Cardiovascular: Regular Rhythm, Normal S1, Normal S2, No Murmurs, No Rubs, No Gallops Vascular: No Carotid Bruits, Normal Femoral Pulses, Normal Radial Pulses, Normal Dorsalis Pedal Pulse, Normal Posterior Tibial Pulses Abdomen: Bowel Sounds Present, Soft, Non Tender, No HSM, No Organomegaly Extremities: No Cyanosis, No Clubbing, No edema Neurological: No Focal Motor or Sensory Deficit 10/02/18 20:35: Sodium 135 L, Potassium 3.3 L, Chloride 97 L, Carbon Dioxide 31.0, Anion Gap 7, BUN 25 H, Creatinine 1.14, Est GFR (MDRD) Af Amer 86, Est GFR (MDRD) Non-Af 71, BUN/Creatinine Ratio 21.9 H, Glucose 156 H, Calcium 8.6, Magnesium 2.0 10/03/18 05:08: PT 24.9 H, INR 2.3 10/03/18 05:08: Sodium 138, Potassium 3.7, Chloride 99, Carbon Dioxide 30.0, Anion Gap 9, BUN 21 H, Creatinine 1.14, Est GFR (MDRD) Af Amer 86, Est GFR (MDRD) Non-Af 71, BUN/Creatinine Ratio 18.4, Glucose 130 H, Calcium 8.8 Rhythm: EKG: ECHO: Stress Test: Cardiac Cath: PCI: CT Surgery: Holter monitor: EPS: PPM: CXR: Chest CT Scan: Medical Necessity - Tobacco Use Smoking Status: Former smoker Tobacco Use: Cigarettes Assessment/Plan 1. Acute on chronic congestive heart failure: The patient presents with progressively worsening dyspnea on exertion and what may be dietary indiscretion by eating potato chips. He is pulmonary pressures of increased from 35-67 by recent echocardiogram and his LVEF has remained the same at 25%. Patient has not had a repeat catheterization to his knowledge since his myocardial infarction in 2008. Patient underwent AICD in 2014, and a search of our database indicated no repeat catheterization. Once the patient has been optimized from a clinical standpoint and a fluid standpoint I would recommend repeat left heart catheterization at the very least and perhaps a right heart catheterization to determine his pulmonary pressures and confirm that they are severely elevated. His Coreg has been held as he is on IV dobutamine and IV Lasix drip. Now that his IV dobutamine and IV Lasix have been discontinued, and the patient is approaching his dry weight, we will reinitiate his Coreg therapy starting at 3.125 mg p.o. twice daily. Recommend continuing 1500 cc fluid restriction daily. Now that his IV Lasix has been discontinued we will start him back on his Lasix 80 mg p.o. twice daily, and add metolazone 2.5 mg q. Thursday and Thursday. In addition we have restarted his Entresto at its previous dose. I would not recommend restarting spironolactone at this time as it was not effectively keeping him out of heart failure, and his sodium is on the lower side anyhow. Patient may benefit from titrating of his Entresto up to 49/51 mg once he has become stabilized. 2. Atrial fibrillation: Patient is on chronic Coumadin therapy for both atrial fibrillation despite his ablation, as well as LV dysfunction which is severe. His Coumadin has been held and his INR is trending downwards. Would recommend continuing to hold his Coumadin and would proceed with left heart catheterization once his INR is less than 1.6. Patient may require bridging with subcu Lovenox until his catheterization once his INR drops below 2.0. 3. AICD: The patient has had no AICD firings. 4. Thank you very much for the opportunity to participate in the cardiac care of your patient. Patient will follow-up with Dr. Willingham going forward. Code Visit Inpatient E&M: 28400 Subs Hosp L2
--- NOTE | 2018-10-03 11:42 | PCM.PROGNOTE ---
<Judy Humphreys - Last Filed: 10/03/18 12:09> Patient Problems: Active and Suspected Problems (Last Reviewed 09/30/18 @ 11:55 by Keven Willingham MD) Congestive heart failure (Acute) Subjective: Patient seen and examined. Hypotensive this morning, asymptomatic. Denies current complaints. - Physical Exam General: Alert, Oriented x3, Cooperative HEENT: Atraumatic, PERRLA, EOMI, Normocephalic Neck: Supple, No JVD, Negative Carotid Bruits Lungs: Clear to auscultation, Diminished Cardiovascular: Regular rate, Regular Rhythm, Normal S1, Normal S2, No murmurs Abdomen: Bowel Sounds Present, Soft, Non Tender, Non-Distended Extremities: No clubbing, No cyanosis, Capillary Refill Less than 3 Seconds, Edema - Nonpitting edema bilateral lower extremities. Skin: No rashes, No breakdown, - - Left medial lower leg wound from prior vascular intervention, left foot venous stasis ulcerations. Dressing clean dry and intact. Chronic venous stasis skin changes bilateral lower extremities. Musculoskeletal: No Tenderness to Palpation of Joints or Extremities Neurological: Cranial nerves II-XII grossly intact, Neuro grossly intact Psych/Mental Status: Normal Affect, Appropriate Vital Signs Temp Pulse Resp BP Pulse Ox 98.3 F 80 13 72/52 L 92 10/03/18 10:20 10/03/18 10:20 10/03/18 10:20 10/03/18 10:20 10/03/18 10:20 Oxygen Flow Rate (L/min) 3 Oxygen Delivery Method Room Air Weight: 198 lb 6.656 oz Body Mass Index (BMI) 39.1 Finger Stick Blood Glucose 87 Intake and Output for Last 24 Hours 10/01/18 10/02/18 10/03/18 23:59 23:59 23:59 Intake Total 1028.8 / 1028.8 1819.1 / 1819.1 427 / 427 Output Total 4800 / 4800 9000 / 9000 3125 / 3125 Balance -3771.2 / -3771.2 -7180.9 / -7180.9 -2698 / -2698 Laboratory Tests Past 24 Hrs 10/02/18 10/03/18 10/03/18 20:35 05:08 05:08 PT 24.9 H INR 2.3 Sodium 135 L 138 Potassium 3.3 L 3.7 Chloride 97 L 99 Carbon Dioxide 31.0 30.0 Anion Gap 7 9 BUN 25 H 21 H Creatinine 1.14 1.14 Estim Creat Clear Calc 63.69 63.69 Est GFR (MDRD) Af Amer 86 86 Est GFR (MDRD) Non-Af 71 71 BUN/Creatinine Ratio 21.9 H 18.4 Glucose 156 H 130 H Calcium 8.6 8.8 Magnesium 2.0 POC Glucose 10/03/18 10/02/18 10/02/18 06:49 21:23 16:56 POC Glucose 151 H 155 H 205 H Medical Necessity - Tobacco Use Smoking Status: Former smoker Tobacco Use: Cigarettes Assessment/Plan All Active Problems (Last Reviewed 09/30/18 @ 11:55 by Keven Willingham MD) Congestive heart failure (Acute) History of coronary artery stent placement (Resolved 05/29/09) Altered mental status (Resolved) Pleural effusion, left (Resolved) Pneumonia (Resolved) 1. Acute hypoxic respiratory failure secondary to acute on chronic systolic CHF/ischemic cardiomyopathy-Echocardiogram 09/07/2018 with EF 25%. BNP 446. Strict I&O. Daily weight. Cardiology following. Patient follows with Dr. Willingham. Plan for left heart catheterization when patient is stable. IV dobutamine and IV Lasix drip discontinued this morning and transitioned to oral Lasix. Patient hypotensive this morning with systolic blood pressure in the 70s. Cardiology notified, holding oral Lasix, Entresto, Coreg, metolazone. Continue to monitor. Patient's oxygen currently stable on room air, weaned off of BiPAP and supplement oxygen. 2. Hypotension-previously on dobutamine drip. Management per cardiology. 3. Atrial fibrillation status post ablation/status post ICD-on Coumadin. INR previously supratherapeutic. INR now 2.3. Continue to hold Coumadin given plans for cath. 4. Hypertension-home carvedilol, spironolactone, Entresto regimen on hold due to hypotension. Cardiology recommending discontinuing spironolactone going forward. 5. Normocytic anemia, iron deficiency anemia-continue iron supplementation. Trend CBC. 6. Chronic kidney disease stage III-at baseline, trend BMP. 7. Type 2 diabetes [id number] AC at bedtime with sliding scale insulin. 8. Recent PAD status post bypass surgery with left lower extremity wound-wound RN consult. Continue aspirin, Plavix, statin. Dressing intact. 9. CAD status post stents-continue aspirin, statin, Plavix. 10. Chronic venous stasis wounds/foot ulcerations LLE-wound RN consult. Vinnie wraps bilateral lower extremities. 11. BPH-continue Flomax regimen. DVT prophylaxis-Coumadin This patient was seen by PRIMITIVO Smith under the supervision of Dr. Finch. <Mark Finch - Last Filed: 10/03/18 13:14> Subjective: hypotensive this AM. Feels dizzy when sitting up. - Physical Exam General: Alert, Cooperative HEENT: Atraumatic, Normocephalic Neck: No Nodes, Thyroid Normal Size and Texture Lungs: Clear to auscultation, Normal air movement, No rhonchi, No wheeze Cardiovascular: Regular rate, Regular Rhythm, Normal S1, Normal S2, No murmurs Abdomen: Bowel Sounds Present, Soft, Non Tender, Non-Distended Extremities: No clubbing, No cyanosis, Edema Skin: - Psych/Mental Status: Normal Affect, Appropriate Vital Signs Temp Pulse Resp BP Pulse Ox 36.8 C 80 13 72/52 L 92 10/03/18 10:20 10/03/18 10:20 10/03/18 10:20 10/03/18 10:20 10/03/18 10:20 Oxygen Flow Rate (L/min) 3 Oxygen Delivery Method Room Air Weight: 90 kg Body Mass Index (BMI) 39.1 Finger Stick Blood Glucose 87 Intake and Output for Last 24 Hours 10/01/18 10/02/18 10/03/18 23:59 23:59 23:59 Intake Total 1028.8 / 1028.8 1819.1 / 1819.1 747 / 747 Output Total 4800 / 4800 9000 / 9000 3275 / 3275 Balance -3771.2 / -3771.2 -7180.9 / -7180.9 -2528 / -2528 Laboratory Tests Past 24 Hrs 10/02/18 10/03/18 10/03/18 20:35 05:08 05:08 PT 24.9 H INR 2.3 Sodium 135 L 138 Potassium 3.3 L 3.7 Chloride 97 L 99 Carbon Dioxide 31.0 30.0 Anion Gap 7 9 BUN 25 H 21 H Creatinine 1.14 1.14 Estim Creat Clear Calc 63.69 63.69 Est GFR (MDRD) Af Amer 86 86 Est GFR (MDRD) Non-Af 71 71 BUN/Creatinine Ratio 21.9 H 18.4 Glucose 156 H 130 H Calcium 8.6 8.8 Magnesium 2.0 POC Glucose 10/03/18 10/03/18 10/02/18 12:19 06:49 21:23 POC Glucose 184 H 151 H 155 H 10/02/18 16:56 POC Glucose 205 H Assessment/Plan Patient seen and examined independently. Data reviewed. I agree with the above note by the nurse practitioner. 1. acute HFrEF improved (weight 106.6 to 103.1) EF 25% from 09/07/18 on lasix gtt cardiology following. carvedilol, spironolactone, entresto held due to hypotension 2. hypotension: likely cardiogenic worse after dobutamine stopped. Cardiology aware, and currently holding diuretics 3. Acute hypoxic respiratory failure POA, was 87% on 5Liters with labored breathing, temporarily requiring BiPAP. 2/2 HF improved now on room air 4. CKD3 stable at baseline continue to monitor 5. pAfib carvedilol held due to hypotension, resume when safe anticoagulated, restart coumadin now that INR is less than 3. 6. Coagulopathy no bleeding continue to hold coumadin for now. 7. VTE prophylaxis: not indicated as patient is already anticoagulated. Code Visit Inpatient E&M: 46613 [facility] L2
--- NOTE | 2018-10-03 12:09 | PN_ITS ---
<Judy Humphreys - Last Filed: 10/03/18 12:09> Patient Problems: Active and Suspected Problems (Last Reviewed 09/30/18 @ 11:55 by Keven Willingham MD) Congestive heart failure (Acute) Subjective: Patient seen and examined. Hypotensive this morning, asymptomatic. Denies current complaints. - Physical Exam General: Alert, Oriented x3, Cooperative HEENT: Atraumatic, PERRLA, EOMI, Normocephalic Neck: Supple, No JVD, Negative Carotid Bruits Lungs: Clear to auscultation, Diminished Cardiovascular: Regular rate, Regular Rhythm, Normal S1, Normal S2, No murmurs Abdomen: Bowel Sounds Present, Soft, Non Tender, Non-Distended Extremities: No clubbing, No cyanosis, Capillary Refill Less than 3 Seconds, Edema - Nonpitting edema bilateral lower extremities. Skin: No rashes, No breakdown, - - Left medial lower leg wound from prior vascular intervention, left foot venous stasis ulcerations. Dressing clean dry and intact. Chronic venous stasis skin changes bilateral lower extremities. Musculoskeletal: No Tenderness to Palpation of Joints or Extremities Neurological: Cranial nerves II-XII grossly intact, Neuro grossly intact Psych/Mental Status: Normal Affect, Appropriate Vital Signs Temp Pulse Resp BP Pulse Ox 98.3 F 80 13 72/52 L 92 10/03/18 10:20 10/03/18 10:20 10/03/18 10:20 10/03/18 10:20 10/03/18 10:20 Oxygen Flow Rate (L/min) 3 Oxygen Delivery Method Room Air Weight: 198 lb 6.656 oz Body Mass Index (BMI) 39.1 Finger Stick Blood Glucose 87 Intake and Output for Last 24 Hours 10/01/18 10/02/18 10/03/18 23:59 23:59 23:59 Intake Total 1028.8 / 1028.8 1819.1 / 1819.1 427 / 427 Output Total 4800 / 4800 9000 / 9000 3125 / 3125 Balance -3771.2 / -3771.2 -7180.9 / -7180.9 -2698 / -2698 Laboratory Tests Past 24 Hrs 10/02/18 10/03/18 10/03/18 20:35 05:08 05:08 PT 24.9 H INR 2.3 Sodium 135 L 138 Potassium 3.3 L 3.7 Chloride 97 L 99 Carbon Dioxide 31.0 30.0 Anion Gap 7 9 BUN 25 H 21 H Creatinine 1.14 1.14 Estim Creat Clear Calc 63.69 63.69 Est GFR (MDRD) Af Amer 86 86 Est GFR (MDRD) Non-Af 71 71 BUN/Creatinine Ratio 21.9 H 18.4 Glucose 156 H 130 H Calcium 8.6 8.8 Magnesium 2.0 POC Glucose 10/03/18 10/02/18 10/02/18 06:49 21:23 16:56 POC Glucose 151 H 155 H 205 H Medical Necessity - Tobacco Use Smoking Status: Former smoker Tobacco Use: Cigarettes Assessment/Plan All Active Problems (Last Reviewed 09/30/18 @ 11:55 by Keven Willingham MD) Congestive heart failure (Acute) History of coronary artery stent placement (Resolved 05/29/09) Altered mental status (Resolved) Pleural effusion, left (Resolved) Pneumonia (Resolved) 1. Acute hypoxic respiratory failure secondary to acute on chronic systolic CHF/ischemic cardiomyopathy-Echocardiogram 09/07/2018 with EF 25%. BNP 446. Strict I&O. Daily weight. Cardiology following. Patient follows with Dr. Willingham. Plan for left heart catheterization when patient is stable. IV dobutamine and IV Lasix drip discontinued this morning and transitioned to oral Lasix. Patient hypotensive this morning with systolic blood pressure in the 70s. Cardiology notified, holding oral Lasix, Entresto, Coreg, metolazone. Continue to monitor. Patient's oxygen currently stable on room air, weaned off of BiPAP and supplement oxygen. 2. Hypotension-previously on dobutamine drip. Management per cardiology. 3. Atrial fibrillation status post ablation/status post ICD-on Coumadin. INR previously supratherapeutic. INR now 2.3. Continue to hold Coumadin given pl ans for cath. 4. Hypertension-home carvedilol, spironolactone, Entresto regimen on hold due to hypotension. Cardiology recommending discontinuing spironolactone going forward. 5. Normocytic anemia, iron deficiency anemia-continue iron supplementation. Trend CBC. 6. Chronic kidney disease stage III-at baseline, trend BMP. 7. Type 2 diabetes [id number] AC at bedtime with sliding scale insulin. 8. Recent PAD status post bypass surgery with left lower extremity wound-wound RN consult. Continue aspirin, Plavix, statin. Dressing intact. 9. CAD status post stents-continue aspirin, statin, Plavix. 10. Chronic venous stasis wounds/foot ulcerations LLE-wound RN consult. Vinnie wraps bilateral lower extremities. 11. BPH-continue Flomax regimen. DVT prophylaxis-Coumadin This patient was seen by PRIMITIVO Smith under the supervision of Dr. Finch. <Mark Finch - Last Filed: 10/03/18 13:14> Subjective: hypotensive this AM. Feels dizzy when sitting up. - Physical Exam General: Alert, Cooperative HEENT: Atraumatic, Normocephalic Neck: No Nodes, Thyroid Normal Size and Texture Lungs: Clear to auscultation, Normal air movement, No rhonchi, No wheeze Cardiovascular: Regular rate, Regular Rhythm, Normal S1, Normal S2, No murmurs Abdomen: Bowel Sounds Present, Soft, Non Tender, Non-Distended Extremities: No clubbing, No cyanosis, Edema Skin: - Psych/Mental Status: Normal Affect, Appropriate Vital Signs Temp Pulse Resp BP Pulse Ox 36.8 C 80 13 72/52 L 92 10/03/18 10:20 10/03/18 10:20 10/03/18 10:20 10/03/18 10:20 10/03/18 10:20 Oxygen Flow Rate (L/min) 3 Oxygen Delivery Method Room Air Weight: 90 kg Body Mass Index (BMI) 39.1 Finger Stick Blood Glucose 87 Intake and Output for Last 24 Hours 10/01/18 10/02/18 10/03/18 23:59 23:59 23:59 Intake Total 1028.8 / 1028.8 1819.1 / 1819.1 747 / 747 Output Total 4800 / 4800 9000 / 9000 3275 / 3275 Balance -3771.2 / -3771.2 -7180.9 / -7180.9 -2528 / -2528 Laboratory Tests Past 24 Hrs 10/02/18 10/03/18 10/03/18 20:35 05:08 05:08 PT 24.9 H INR 2.3 Sodium 135 L 138 Potassium 3.3 L 3.7 Chloride 97 L 99 Carbon Dioxide 31.0 30.0 Anion Gap 7 9 BUN 25 H 21 H Creatinine 1.14 1.14 Estim Creat Clear Calc 63.69 63.69 Est GFR (MDRD) Af Amer 86 86 Est GFR (MDRD) Non-Af 71 71 BUN/Creatinine Ratio 21.9 H 18.4 Glucose 156 H 130 H Calcium 8.6 8.8 Magnesium 2.0 POC Glucose 10/03/18 10/03/18 10/02/18 12:19 06:49 21:23 POC Glucose 184 H 151 H 155 H 10/02/18 16:56 POC Glucose 205 H Assessment/Plan Patient seen and examined independently. Data reviewed. I agree with the above note by the nurse practitioner. 1. acute HFrEF * improved (weight 106.6 to 103.1) * EF 25% from 09/07/18 * on lasix gtt * cardiology following. * carvedilol, spironolactone, entresto held due to hypotension 2. hypotension: * likely cardiogenic * worse after dobutamine stopped. * Cardiology aware, and currently holding diuretics 3. Acute hypoxic respiratory failure * POA, was 87% on 5Liters with labored breathing, temporarily requiring BiPAP. * 2/2 HF * improved * now on room air 4. CKD3 * stable * at baseline * continue to monitor 5. pAfib * carvedilol held due to hypotension, resume when safe * anticoagulated, restart coumadin now that INR is less than 3. 6. Coagulopathy * no bleeding * continue to hold coumadin for now. 7. VTE prophylaxis: not indicated as patient is already anticoagulated. Code Visit Inpatient E&M: 42399 [facility] Hosp L2
[2018-10-03] MEDS: Ferrous Sulfate 325 MG Tablet PO ×2 (12:23→17:08)
[2018-10-03 12:26] LABS: Bedside Glucose 184 mg/dL (70-110)
[2018-10-03] MEDS: Insulin Lispro 100 UNIT/ML INSULN.PEN SQ ×3 (12:26→22:23)
[2018-10-03 16:36] LABS: Bedside Glucose 163 mg/dL (70-110)
[2018-10-03] MEDS: Tamsulosin HCl 0.4 MG Capsule PO (17:09)
[2018-10-03] MEDS: Atorvastatin Calcium 40 MG Tablet PO (22:23)
[2018-10-03 22:35] LABS: Bedside Glucose 171 mg/dL (70-110)
[2018-10-04] VITALS (14 sets, daily range): BP systolic 83–102; BP diastolic 58–66; PULSE 80; RESP 12–20; TEMP 36.4–37.1; O2SAT 97–100
[2018-10-04 05:35] LABS: Prothrombin Time (Protime)PT. 22.4 SECONDS (11.7-14.9)
[2018-10-04 05:47] LABS: Anion Gap 6 (5-15); BUN 39 mg/dL (7-18); BUN/Creat Ratio 26.9 RATIO (10-20); Calcium,Total 8.7 mg/dL (8.5-10.1); Chloride 99 mmol/L (98-107); Creatinine, Serum 1.45 mg/dL (0.70-1.30); EST Glomerular Filtration Rate 54 mL/min (>60); Est Glom Filt Rate - Afr Amer 65 mL/min (>60); Estimated Creatinine Clearance 50.07 ml/min; Glucose 136 mg/dL (74-106); Potassium 4.8 mmol/L (3.5-5.1); Sodium Level 137 mmol/L (136-145)
[2018-10-04] MEDS: Insulin Lispro 100 UNIT/ML INSULN.PEN SQ ×4 (07:00→21:17)
[2018-10-04] MEDS: 0.9% NaCl Peripheral Flush Adult/Peds IV (07:00)
[2018-10-04 07:11] LABS: Bedside Glucose 152 mg/dL (70-110)
--- NOTE | 2018-10-04 07:17 | PCM.PN.CARD ---
Subjectve: Patient seen and evaluated. Appears to be doing much better today. Objective: Vital Signs Temp Pulse Resp BP Pulse Ox 97.8 F 80 18 102/65 100 10/04/18 04:22 10/04/18 04:22 10/04/18 04:22 10/04/18 04:22 10/04/18 04:22 Oxygen Flow Rate (L/min) 3 Oxygen Delivery Method Bi-pap Weight: 199 lb 4.766 oz Body Mass Index (BMI) 39.1 Finger Stick Blood Glucose 87 Intake and Output for Last 24 Hours 10/02/18 10/03/18 10/04/18 23:59 23:59 23:59 Intake Total 1819.1 / 1819.1 1097 / 1097 100 / 100 Output Total 9000 / 9000 3475 / 3475 375 / 375 Balance -7180.9 / -7180.9 -2378 / -2378 -275 / -275 General: Awake, Alert, Oriented x 3 HEENT: PERRL, EOMI, Sclera Non Icteric Neck: Supple, Good ROM, No Lymph Node Enlargement Lungs: Clear to auscultation Cardiovascular: Regular Rhythm, Normal S1, Normal S2, No Murmurs, No Rubs, No Gallops Vascular: No Carotid Bruits, Normal Femoral Pulses, Normal Radial Pulses, Normal Dorsalis Pedal Pulse, Normal Posterior Tibial Pulses Abdomen: Bowel Sounds Present, Soft, Non Tender, No HSM, No Organomegaly Extremities: No Cyanosis, No Clubbing, No edema, Trace LLE Edema Musculoskeletal: No Erythema Skin: - - Brawny changes Lymphatic: No Lymph Node Enlargement Neurological: No Focal Motor or Sensory Deficit Psych/Mental Status: Appropriate 10/04/18 05:10: Sodium 137, Potassium 4.8, Chloride 99, Carbon Dioxide 32.0, Anion Gap 6, BUN 39 H, Creatinine 1.45 H, Est GFR (MDRD) Af Amer 65, Est GFR (MDRD) Non-Af 54 L, BUN/Creatinine Ratio 26.9 H, Glucose 136 H, Calcium 8.7 10/04/18 05:10: PT 22.4 H, INR 2.0 Rhythm: EKG: ECHO: Stress Test: Cardiac Cath: PCI: CT Surgery: Holter monitor: EPS: PPM: CXR: Chest CT Scan: Medical Necessity - Tobacco Use Smoking Status: Former smoker Tobacco Use: Cigarettes Assessment/Plan 1. Acute hypoxic respiratory failure due to acute on chronic HFrEF. The exact precipitating factor on the above is not entirely clear at this time. He has had significant diuresis over the weekend and is breathing much better. BNP is ~ 447 CXR shows pulmonary edema with small bilateral pleural effusions 2. Acute on chronic HFrEF has known EF of 25% per echo, with ICD in place. He definitely had anasarca. He was treated with intravenous Lasix and dobutamine and made significant improvement. We will slowly try and add back on the beta-ronn and the Entresto. Will hold the diuretics for at least another 24 hours 3. CAD and ischemic cardiomyopathy s/p AICD. EF is 25% per echo in 09/10, with moderately dilated LV and regional wall motion abnormalities on aspirin, plavix, carvedilol and entresto. He may eventually need a relook at his coronary anatomy to make sure that this is not responsible for his recent decline 4. paroxysmal afib: rate and rhythm controlled. 5. CAD: on aspirin, plavix and atorvastatin 6. Status post ICD implantation His ICD has been interrogated recently and there is been no significant abnormality and no VT or VF episodes. He will continue to follow-up in our pacemaker clinic. Overall his prognosis appears to be guarded due to his reduced ejection fraction and his low blood pressure. He however appears to be doing much better overall.
--- NOTE | 2018-10-04 07:22 | PN.CARD_ITS ---
Subjectve: Patient seen and evaluated. Appears to be doing much better today. Objective: Vital Signs Temp Pulse Resp BP Pulse Ox 97.8 F 80 18 102/65 100 10/04/18 04:22 10/04/18 04:22 10/04/18 04:22 10/04/18 04:22 10/04/18 04:22 Oxygen Flow Rate (L/min) 3 Oxygen Delivery Method Bi-pap Weight: 199 lb 4.766 oz Body Mass Index (BMI) 39.1 Finger Stick Blood Glucose 87 Intake and Output for Last 24 Hours 10/02/18 10/03/18 10/04/18 23:59 23:59 23:59 Intake Total 1819.1 / 1819.1 1097 / 1097 100 / 100 Output Total 9000 / 9000 3475 / 3475 375 / 375 Balance -7180.9 / -7180.9 -2378 / -2378 -275 / -275 General: Awake, Alert, Oriented x 3 HEENT: PERRL, EOMI, Sclera Non Icteric Neck: Supple, Good ROM, No Lymph Node Enlargement Lungs: Clear to auscultation Cardiovascular: Regular Rhythm, Normal S1, Normal S2, No Murmurs, No Rubs, No Gallops Vascular: No Carotid Bruits, Normal Femoral Pulses, Normal Radial Pulses, Normal Dorsalis Pedal Pulse, Normal Posterior Tibial Pulses Abdomen: Bowel Sounds Present, Soft, Non Tender, No HSM, No Organomegaly Extremities: No Cyanosis, No Clubbing, No edema, Trace LLE Edema Musculoskeletal: No Erythema Skin: - - Brawny changes Lymphatic: No Lymph Node Enlargement Neurological: No Focal Motor or Sensory Deficit Psych/Mental Status: Appropriate 10/04/18 05:10: Sodium 137, Potassium 4.8, Chloride 99, Carbon Dioxide 32.0, Anion Gap 6, BUN 39 H, Creatinine 1.45 H, Est GFR (MDRD) Af Amer 65, Est GFR (MDRD) Non-Af 54 L, BUN/Creatinine Ratio 26.9 H, Glucose 136 H, Calcium 8.7 10/04/18 05:10: PT 22.4 H, INR 2.0 Rhythm: EKG: ECHO: Stress Test: Cardiac Cath: PCI: CT Surgery: Holter monitor: EPS: PPM: CXR: Chest CT Scan: Medical Necessity - Tobacco Use Smoking Status: Former smoker Tobacco Use: Cigarettes Assessment/Plan 1. Acute hypoxic respiratory failure due to acute on chronic HFrEF. The exact precipitating factor on the above is not entirely clear at this time. He has had significant diuresis over the weekend and is breathing much better. * BNP is ~ 447 * CXR shows pulmonary edema with small bilateral pleural effusions * 2. Acute on chronic HFrEF * has known EF of 25% per echo, with ICD in place. He definitely had anasarca. * He was treated with intravenous Lasix and dobutamine and made significant improvement. We will slowly try and add back on the beta-ronn and the Entresto. * Will hold the diuretics for at least another 24 hours 3. CAD and ischemic cardiomyopathy * s/p AICD. EF is 25% per echo in 09/10, with moderately dilated LV and regional wall motion abnormalities * on aspirin, plavix, carvedilol and entresto. * He may eventually need a relook at his coronary anatomy to make sure that this is not responsible for his recent decline 4. paroxysmal afib: rate and rhythm controlled. 5. CAD: on aspirin, plavix and atorvastatin 6. Status post ICD implantation * His ICD has been interrogated recently and there is been no significant abnormality and no VT or VF episodes. He will continue to follow-up in our pacemaker clinic. * Overall his prognosis appears to be guarded due to his reduced ejection fraction and his low blood pressure. He however appears to be doing much better overall.
[2018-10-04] MEDS: Aspirin 81 MG TAB.CHEW PO (09:14)
[2018-10-04] MEDS: SACUBITRIL/VALSARTAN 24/26 MG TABLET 1 EACH PO ×2 (09:14→21:16)
[2018-10-04] MEDS: Clopidogrel Bisulfate 75 MG Tablet PO (09:14)
[2018-10-04] MEDS: Gabapentin 100 MG Capsule PO ×3 (09:14→17:21)
--- NOTE | 2018-10-04 10:54 | CASEMGMT ---
NATALY faxed updated information to [facility]. NATALY let them know he could possibly be ready tomorrow or Thursday. [employer]
--- NOTE | 2018-10-04 11:08 | PCM.PROGNOTE ---
<Judy Humphreys - Last Filed: 10/04/18 11:17> Patient Problems: Active and Suspected Problems (Last Reviewed 09/30/18 @ 11:55 by Keven Willingham MD) Congestive heart failure (Acute) Subjective: Patient seen and examined. No acute events overnight. Denies further dizziness, lightheadedness. Denies other complaints. - Physical Exam General: Alert, Oriented x3, Cooperative HEENT: Atraumatic, PERRLA, EOMI, Normocephalic Neck: Supple, No JVD, Negative Carotid Bruits Lungs: Clear to auscultation, Diminished Cardiovascular: Regular rate, Regular Rhythm, Normal S1, Normal S2, No murmurs Abdomen: Bowel Sounds Present, Soft, Non Tender, Non-Distended Extremities: No clubbing, No cyanosis, Capillary Refill Less than 3 Seconds, Edema - Nonpitting bilateral lower extremities Skin: - - Left medial lower leg wound from prior vascular intervention, left foot venous stasis ulcerations. Dressing clean dry and intact. Chronic venous stasis skin changes bilateral lower extremities. Musculoskeletal: No Tenderness to Palpation of Joints or Extremities Neurological: Cranial nerves II-XII grossly intact, Neuro grossly intact Psych/Mental Status: Normal Affect, Appropriate Vital Signs Temp Pulse Resp BP Pulse Ox 98.5 F 80 16 96/64 98 10/04/18 09:10 10/04/18 09:10 10/04/18 09:10 10/04/18 09:10 10/04/18 10:00 Oxygen Flow Rate (L/min) 3 Oxygen Delivery Method Room Air Weight: 199 lb 4.766 oz Body Mass Index (BMI) 39.1 Finger Stick Blood Glucose 87 Intake and Output for Last 24 Hours 10/02/18 10/03/18 10/04/18 23:59 23:59 23:59 Intake Total 1819.1 / 1819.1 1097 / 1097 100 / 100 Output Total 9000 / 9000 3475 / 3475 375 / 375 Balance -7180.9 / -7180.9 -2378 / -2378 -275 / -275 Laboratory Tests Past 24 Hrs 10/04/18 10/04/18 05:10 05:10 PT 22.4 H INR 2.0 Sodium 137 Potassium 4.8 Chloride 99 Carbon Dioxide 32.0 Anion Gap 6 BUN 39 H Creatinine 1.45 H Estim Creat Clear Calc 50.07 Est GFR (MDRD) Af Amer 65 Est GFR (MDRD) Non-Af 54 L BUN/Creatinine Ratio 26.9 H Glucose 136 H Calcium 8.7 POC Glucose 10/04/18 10/03/18 10/03/18 06:57 22:22 16:29 POC Glucose 152 H 171 H 163 H 10/03/18 12:19 POC Glucose 184 H Medical Necessity - Tobacco Use Smoking Status: Former smoker Tobacco Use: Cigarettes Assessment/Plan All Active Problems (Last Reviewed 09/30/18 @ 11:55 by Keven Willingham MD) Congestive heart failure (Acute) History of coronary artery stent placement (Resolved 05/29/09) Altered mental status (Resolved) Pleural effusion, left (Resolved) Pneumonia (Resolved) 1. Acute hypoxic respiratory failure secondary to acute on chronic systolic CHF/ischemic cardiomyopathy-Echocardiogram 09/07/2018 with EF 25%. BNP 446. Strict I&O. Daily weight. Cardiology following. Patient follows with Dr. Willingham. Plan for left heart catheterization when patient is stable. IV dobutamine and IV Lasix drip discontinued 10/03/18. Oral Lasix on hold due to acute kidney injury. Entresto, Coreg, metolazone on hold due to hypotension. Patient's oxygen currently stable on room air, weaned off of BiPAP and supplement oxygen. 2. Hypotension-improved. Antihypertensive regimen on hold as noted above. 3. Atrial fibrillation status post ablation/status post ICD-on Coumadin. INR previously supratherapeutic. INR now 2.0. Continue to hold Coumadin given plans for cath. 4. Acute kidney injury on chronic kidney disease stage III-secondary to diuretic regimen. Hold diuretic regimen. Trend BMP. 5. Normocytic anemia, iron deficiency anemia-continue iron supplementation. Trend CBC. 6. Hypertension-home carvedilol, spironolactone, Entresto regimen on hold due to hypotension. Cardiology recommending discontinuing spironolactone going forward. 7. Type 2 diabetes [id number] AC at bedtime with sliding scale insulin. 8. Recent PAD status post bypass surgery with left lower extremity wound-wound RN consult. Continue aspirin, Plavix, statin. Dressing intact. 9. CAD status post stents-continue aspirin, statin, Plavix. 10. Chronic venous stasis wounds/foot ulcerations LLE-wound RN consult. Vinnie wraps bilateral lower extremities. 11. BPH-continue Flomax regimen. DVT prophylaxis-Coumadin This patient was seen by PRIMITIVO Smith under the supervision of Dr. Finch. <Mark Finch - Last Filed: 10/04/18 12:32> Subjective: No further dizziness. no shortness of breath. - Physical Exam General: Alert, Cooperative HEENT: Atraumatic, Normocephalic Neck: No Nodes, Thyroid Normal Size and Texture Lungs: Clear to auscultation, Normal air movement, No rhonchi, No wheeze, Diminished Cardiovascular: Regular rate, Regular Rhythm, Normal S1, Normal S2, No murmurs Abdomen: Bowel Sounds Present, Soft, Non Tender, Non-Distended Skin: - Vital Signs Temp Pulse Resp BP Pulse Ox 36.9 C 80 16 96/64 98 10/04/18 09:10 10/04/18 09:10 10/04/18 09:10 10/04/18 09:10 10/04/18 10:00 Oxygen Flow Rate (L/min) 3 Oxygen Delivery Method Room Air Weight: 90.4 kg Body Mass Index (BMI) 39.1 Finger Stick Blood Glucose 87 Intake and Output for Last 24 Hours 10/02/18 10/03/18 10/04/18 23:59 23:59 23:59 Intake Total 1819.1 / 1819.1 1097 / 1097 340 / 340 Output Total 9000 / 9000 3475 / 3475 575 / 575 Balance -7180.9 / -7180.9 -2378 / -2378 -235 / -235 Laboratory Tests Past 24 Hrs 10/04/18 10/04/18 05:10 05:10 PT 22.4 H INR 2.0 Sodium 137 Potassium 4.8 Chloride 99 Carbon Dioxide 32.0 Anion Gap 6 BUN 39 H Creatinine 1.45 H Estim Creat Clear Calc 50.07 Est GFR (MDRD) Af Amer 65 Est GFR (MDRD) Non-Af 54 L BUN/Creatinine Ratio 26.9 H Glucose 136 H Calcium 8.7 POC Glucose 10/04/18 10/04/18 10/03/18 11:36 06:57 22:22 POC Glucose 244 H 152 H 171 H 10/03/18 16:29 POC Glucose 163 H Assessment/Plan Patient seen and examined independently. Data reviewed. I agree with the above note by the nurse practitioner. 1. acute HFrEF improved (weight 106.6 to 103.1) EF 25% from 09/07/18 Lasix 80 IV BID cardiology following. carvedilol, spironolactone, entresto held due to hypotension plan for LHC on 10/05 2. hypotension: improved likely cardiogenic 3. Acute hypoxic respiratory failure POA, was 87% on 5Liters with labored breathing, temporarily requiring BiPAP. 2/2 HF improved now on room air 4. CKD3 worse today continue to monitor 5. pAfib carvedilol held due to hypotension, resume when safe anticoagulated, restart coumadin after LHC 6. Coagulopathy no bleeding continue to hold coumadin for now. 7. VTE prophylaxis: not indicated as patient is already anticoagulated. Code Visit Inpatient E&M: 14026 [facility] Hosp L2
--- NOTE | 2018-10-04 11:16 | PN_ITS ---
<Judy Humphreys - Last Filed: 10/04/18 11:17> Patient Problems: Active and Suspected Problems (Last Reviewed 09/30/18 @ 11:55 by Keven Willingham MD) Congestive heart failure (Acute) Subjective: Patient seen and examined. No acute events overnight. Denies further dizziness, lightheadedness. Denies other complaints. - Physical Exam General: Alert, Oriented x3, Cooperative HEENT: Atraumatic, PERRLA, EOMI, Normocephalic Neck: Supple, No JVD, Negative Carotid Bruits Lungs: Clear to auscultation, Diminished Cardiovascular: Regular rate, Regular Rhythm, Normal S1, Normal S2, No murmurs Abdomen: Bowel Sounds Present, Soft, Non Tender, Non-Distended Extremities: No clubbing, No cyanosis, Capillary Refill Less than 3 Seconds, Edema - Nonpitting bilateral lower extremities Skin: - - Left medial lower leg wound from prior vascular intervention, left foot venous stasis ulcerations. Dressing clean dry and intact. Chronic venous stasis skin changes bilateral lower extremities. Musculoskeletal: No Tenderness to Palpation of Joints or Extremities Neurological: Cranial nerves II-XII grossly intact, Neuro grossly intact Psych/Mental Status: Normal Affect, Appropriate Vital Signs Temp Pulse Resp BP Pulse Ox 98.5 F 80 16 96/64 98 10/04/18 09:10 10/04/18 09:10 10/04/18 09:10 10/04/18 09:10 10/04/18 10:00 Oxygen Flow Rate (L/min) 3 Oxygen Delivery Method Room Air Weight: 199 lb 4.766 oz Body Mass Index (BMI) 39.1 Finger Stick Blood Glucose 87 Intake and Output for Last 24 Hours 10/02/18 10/03/18 10/04/18 23:59 23:59 23:59 Intake Total 1819.1 / 1819.1 1097 / 1097 100 / 100 Output Total 9000 / 9000 3475 / 3475 375 / 375 Balance -7180.9 / -7180.9 -2378 / -2378 -275 / -275 Laboratory Tests Past 24 Hrs 10/04/18 10/04/18 05:10 05:10 PT 22.4 H INR 2.0 Sodium 137 Potassium 4.8 Chloride 99 Carbon Dioxide 32.0 Anion Gap 6 BUN 39 H Creatinine 1.45 H Estim Creat Clear Calc 50.07 Est GFR (MDRD) Af Amer 65 Est GFR (MDRD) Non-Af 54 L BUN/Creatinine Ratio 26.9 H Glucose 136 H Calcium 8.7 POC Glucose 10/04/18 10/03/18 10/03/18 06:57 22:22 16:29 POC Glucose 152 H 171 H 163 H 10/03/18 12:19 POC Glucose 184 H Medical Necessity - Tobacco Use Smoking Status: Former smoker Tobacco Use: Cigarettes Assessment/Plan All Active Problems (Last Reviewed 09/30/18 @ 11:55 by Keven Willingham MD) Congestive heart failure (Acute) History of coronary artery stent placement (Resolved 05/29/09) Altered mental status (Resolved) Pleural effusion, left (Resolved) Pneumonia (Resolved) 1. Acute hypoxic respiratory failure secondary to acute on chronic systolic CHF/ischemic cardiomyopathy-Echocardiogram 09/07/2018 with EF 25%. BNP 446. Strict I&O. Daily weight. Cardiology following. Patient follows with Dr. Willingham. Plan for left heart catheterization when patient is stable. IV dobutamine and IV Lasix drip discontinued 10/03/18. Oral Lasix on hold due to acute kidney injury. Entresto, Coreg, metolazone on hold due to hypotension. Patient's oxygen currently stable on room air, weaned off of BiPAP and supplement oxygen. 2. Hypotension-improved. Antihypertensive regimen on hold as noted above. 3. Atrial fibrillation status post ablation/status post ICD-on Coumadin. INR previously supratherapeutic. INR now 2.0. Continue to hold Coumadin given plans for cath. 4. Acute kidney injury on chronic kidney disease stage III-secondary to diuretic regimen. Hold diuretic regimen. Trend BMP. 5. Normocytic anemia, iron deficiency anemia-continue iron supplementation. Trend CBC. 6. Hypertension-home carvedilol, spironolactone, Entresto regimen on hold due to hypotension. Cardiology recommending discontinuing spironolactone going forward. 7. Type 2 diabetes fnxpluvt-Tesn-Hvmgm AC at bedtime with sliding scale insulin. 8. Recent PAD status post bypass surgery with left lower extremity wound-wound RN consult. Continue aspirin, Plavix, statin. Dressing intact. 9. CAD status post stents-continue aspirin, statin, Plavix. 10. Chronic venous stasis wounds/foot ulcerations LLE-wound RN consult. Vinnie wraps bilateral lower extremities. 11. BPH-continue Flomax regimen. DVT prophylaxis-Coumadin This patient was seen by PRIMITIVO Smith under the supervision of Dr. Finch. <Mark Finch - Last Filed: 10/04/18 12:32> Subjective: No further dizziness. no shortness of breath. - Physical Exam General: Alert, Cooperative HEENT: Atraumatic, Normocephalic Neck: No Nodes, Thyroid Normal Size and Texture Lungs: Clear to auscultation, Normal air movement, No rhonchi, No wheeze, Diminished Cardiovascular: Regular rate, Regular Rhythm, Normal S1, Normal S2, No murmurs Abdomen: Bowel Sounds Present, Soft, Non Tender, Non-Distended Skin: - Vital Signs Temp Pulse Resp BP Pulse Ox 36.9 C 80 16 96/64 98 10/04/18 09:10 10/04/18 09:10 10/04/18 09:10 10/04/18 09:10 10/04/18 10:00 Oxygen Flow Rate (L/min) 3 Oxygen Delivery Method Room Air Weight: 90.4 kg Body Mass Index (BMI) 39.1 Finger Stick Blood Glucose 87 Intake and Output for Last 24 Hours 10/02/18 10/03/18 10/04/18 23:59 23:59 23:59 Intake Total 1819.1 / 1819.1 1097 / 1097 340 / 340 Output Total 9000 / 9000 3475 / 3475 575 / 575 Balance -7180.9 / -7180.9 -2378 / -2378 -235 / -235 Laboratory Tests Past 24 Hrs 10/04/18 10/04/18 05:10 05:10 PT 22.4 H INR 2.0 Sodium 137 Potassium 4.8 Chloride 99 Carbon Dioxide 32.0 Anion Gap 6 BUN 39 H Creatinine 1.45 H Estim Creat Clear Calc 50.07 Est GFR (MDRD) Af Amer 65 Est GFR (MDRD) Non-Af 54 L BUN/Creatinine Ratio 26.9 H Glucose 136 H Calcium 8.7 POC Glucose 10/04/18 10/04/18 10/03/18 11:36 06:57 22:22 POC Glucose 244 H 152 H 171 H 10/03/18 16:29 POC Glucose 163 H Assessment/Plan Patient seen and examined independently. Data reviewed. I agree with the above note by the nurse practitioner. 1. acute HFrEF * improved (weight 106.6 to 103.1) * EF 25% from 09/07/18 * Lasix 80 IV BID * cardiology following. * carvedilol, spironolactone, entresto held due to hypotension * plan for LHC on 10/05 2. hypotension: * improved * likely cardiogenic 3. Acute hypoxic respiratory failure * POA, was 87% on 5Liters with labored breathing, temporarily requiring BiPAP. * 2/2 HF * improved * now on room air 4. CKD3 * worse today * continue to monitor 5. pAfib * carvedilol held due to hypotension, resume when safe * anticoagulated, restart coumadin after LHC 6. Coagulopathy * no bleeding * continue to hold coumadin for now. 7. VTE prophylaxis: not indicated as patient is already anticoagulated. Code Visit Inpatient E&M: 31927 Subs Hosp L2
[2018-10-04] MEDS: Ferrous Sulfate 325 MG Tablet PO ×2 (11:39→17:21)
[2018-10-04 12:05] LABS: Bedside Glucose 244 mg/dL (70-110)
[2018-10-04] MEDS: Acetaminophen 500 MG Tablet 1000 MG PO ×2 (14:19→21:16)
--- NOTE | 2018-10-04 14:56 | CHAPLAIN ---
Type of Pastoral Visit _x__ Initial Visit ___ Follow-up Visit ___ On-call Visit ___ General Patient Visit ___ Spiritual Assessment ___ Family Conference ___ Bereavement ___ Rapid Response ___ Code Blue ___ Other (describe below) Pastoral Care Referral From _x__ Patient ___ Family ___ Nurse ___ Physician ___ [employer] Shop Supervisor ___ Business Intelligence Manager ___ Other (describe below) Sacrament/Intervention _x__ Active listening ___ Anointing ___ Yarsanism ___ Bereavement ___ Communion _x__ Isabella exploration ___ _x__ Life review _x__ Prayer ___ Reconciliation ___ Sacrament of Sick _x__ Supportive presence ___ Wedding ___ Other (describe below) Pastoral Comments patient gives isabella story and his recovery from addictions; pt is open to spiritual care support
--- NOTE | 2018-10-04 15:40 | NURSING ---
wound photo: left medial lower leg
--- NOTE | 2018-10-04 15:41 | NURSING ---
wound photo: left foot
[2018-10-04] MEDS: Tamsulosin HCl 0.4 MG Capsule PO (17:21)
[2018-10-04 17:35] LABS: Bedside Glucose 188 mg/dL (70-110)
[2018-10-04] MEDS: Atorvastatin Calcium 40 MG Tablet PO (21:16)
[2018-10-04 22:21] LABS: Bedside Glucose 200 mg/dL (70-110)
[2018-10-05] VITALS (17 sets, daily range): BP systolic 85–98; BP diastolic 52–67; PULSE 80–82; RESP 12–20; TEMP 36.2–37.1; O2SAT 97–100
--- NOTE | 2018-10-05 05:55 | EKG12_ITS ---
Test Reason : AM EKG Blood Pressure : / mmHG Vent. Rate : 080 BPM Atrial Rate : 163 BPM P-R Int : 000 ms QRS Dur : 158 ms QT Int : 474 ms P-R-T Axes : 000 231 057 degrees QTc Int : 546 ms Biventricular pacemaker detected Abnormal ECG Confirmed by STAS SMITH, BETITO ([id number]), scientific editor CAROLANN FROST ([id number]) on 10/06/2018 1:53:17 PM Referred By: Mildred Terry Confirmed By:BETITO MCCLELLAND MD
[2018-10-05] MEDS: Acetaminophen 500 MG Tablet 1000 MG PO ×3 (06:23→22:28)
[2018-10-05] MEDS: Clopidogrel Bisulfate 75 MG Tablet PO (06:23)
[2018-10-05] MEDS: Aspirin 81 MG TAB.CHEW PO (06:23)
[2018-10-05] MEDS: SACUBITRIL/VALSARTAN 24/26 MG TABLET 1 EACH PO (06:23)
[2018-10-05 07:05] LABS: International Normalized Ratio 1.6; Prothrombin Time (Protime)PT. 19.2 SECONDS (11.7-14.9)
[2018-10-05 07:05] LABS: Bedside Glucose 154 mg/dL (70-110)
[2018-10-05 07:06] LABS: Hematocrit 39.3 % (40-54); Hemoglobin 12.1 g/dl (13.0-16.5); Mean Corp Hgb Conc 30.8 g/gl (32-36); Mean Corpuscular Hgb 25.1 pg (27.0-32.0); Mean Corpuscular Volume 81.4 fL (80-94); Mean Platelet Vol. 10.1 fl (6.2-12.0); Partial Thromboplast Time 32.6 Seconds (24.1-36.2); Platelet Count 171 K/mm3 (150-450); RBC Distribution Width CV 19.7 % (11.6-14.6); RBC Distribution Width SD 57.7 fl (35.1-43.9); Red Blood Count 4.83 M/mm3 (4.6-6.2); Scan Indicated on CBC? Y/N NO; White Blood Count 4.9 K/mm3 (4.4-11.0)
[2018-10-05 07:17] LABS: Anion Gap 4 (5-15); BUN 44 mg/dL (7-18); Calcium,Total 8.4 mg/dL (8.5-10.1); Chloride 102 mmol/L (98-107); Creatinine, Serum 1.57 mg/dL (0.70-1.30); EST Glomerular Filtration Rate 49 mL/min (>60); Est Glom Filt Rate - Afr Amer 59 mL/min (>60); Estimated Creatinine Clearance 46.24 ml/min; Glucose 159 mg/dL (74-106); Potassium 4.6 mmol/L (3.5-5.1); Sodium Level 135 mmol/L (136-145)
[2018-10-05 07:29] LABS: Mucous, Urine 0 SEEN /hpf (<or=2+)
[2018-10-05 07:33] LABS: Color, Urine Yellow (Yellow); Glucose, Dipstick Normal (Normal); Ketone-Dipstick Negative (Negative); Leukocyte Esterase-Dipstick 500 /ul (Negative); Nitrite-Dipstick Negative (Negative); Occult Blood-Urine 250 /ul (Negative); Protein-Dipstick 15 mg/dl (Negative); Urine Bilirubin Dipstick Negative (Negative); Urine Clarity Cloudy (Clear); Urine Urobilinogen Normal (Normal)
--- NOTE | 2018-10-05 07:33 | PN.CARD_ITS ---
Subjectve: Patient seen and evaluated. Appears to be doing well. Objective: Vital Signs Temp Pulse Resp BP Pulse Ox 97.7 F L 80 20 H 98/59 L 99 10/05/18 05:55 10/05/18 05:55 10/05/18 05:55 10/05/18 05:55 10/05/18 05:55 Oxygen Flow Rate (L/min) 24 Oxygen Delivery Method Bi-pap Weight: 202 lb 13.204 oz Body Mass Index (BMI) 39.1 Finger Stick Blood Glucose 87 Intake and Output for Last 24 Hours 10/03/18 10/04/18 10/05/18 23:59 23:59 23:59 Intake Total 1097 / 1097 580 / 580 240 / 240 Output Total 3475 / 3475 975 / 975 500 / 500 Balance -2378 / -2378 -395 / -395 -260 / -260 General: Awake, Alert, Oriented x 3 HEENT: PERRL, EOMI, Sclera Non Icteric Neck: Supple, Good ROM, No Lymph Node Enlargement Lungs: Clear to auscultation Cardiovascular: Regular Rhythm, Normal S1, Normal S2, No Murmurs, No Rubs, No Gallops Vascular: No Carotid Bruits, Normal Femoral Pulses, Normal Radial Pulses, Normal Dorsalis Pedal Pulse, Normal Posterior Tibial Pulses Abdomen: Bowel Sounds Present, Soft, Non Tender, No HSM, No Organomegaly Extremities: No Cyanosis, No Clubbing, No edema Musculoskeletal: No Erythema Skin: No Rashes Lymphatic: No Lymph Node Enlargement Neurological: No Focal Motor or Sensory Deficit Psych/Mental Status: Appropriate 10/05/18 06:44: WBC 4.9, RBC 4.83, Hgb 12.1 L, Hct 39.3 L, MCV 81.4, MCH 25.1 L, MCHC 30.8 L, RDW 19.7 H, RDW Differential 57.7 H, Plt Count 171, MPV 10.1 10/05/18 06:44: PT 19.2 H, INR 1.6, APTT 32.6 10/05/18 06:44: Sodium 135 L, Potassium 4.6, Chloride 102, Carbon Dioxide 29.0, Anion Gap 4 L, BUN 44 H, Creatinine 1.57 H, Est GFR (MDRD) Af Amer 59 L, Est GFR (MDRD) Non-Af 49 L, BUN/Creatinine Ratio 28.0 H, Glucose 159 H, Calcium 8.4 L Rhythm: EKG: ECHO: Stress Test: Cardiac Cath: PCI: CT Surgery: Holter monitor: EPS: PPM: CXR: Chest CT Scan: Medical Necessity - Tobacco Use Smoking Status: Former smoker Tobacco Use: Cigarettes Assessment/Plan 1. Acute hypoxic respiratory failure due to acute on chronic HFrEF. The exact precipitating factor on the above is not entirely clear at this time. He has had significant diuresis over the weekend and is breathing much better. * BNP is ~ 447 * CXR shows pulmonary edema with small bilateral pleural effusions-with improvement * 2. Acute on chronic HFrEF * has known EF of 25% per echo, with ICD in place. He definitely had anasarca. * He was treated with intravenous Lasix and dobutamine and made significant improvement. We will slowly try and add back on the beta-ronn and the Entresto. * Will hold off on diuretics for another 24 hours. Renal function appears to be headed in the wrong direction. * 3. CAD and ischemic cardiomyopathy * s/p AICD. EF is 25% per echo in 09/10, with moderately dilated LV and regional wall motion abnormalities * on aspirin, plavix, carvedilol and entresto. * He may eventually need a relook at his coronary anatomy to make sure that this is not responsible for his recent decline. At this time that his creatinine i s increasing I would not recommend any dye load as this may worsen his kidney function further. 4. paroxysmal afib: rate and rhythm controlled. 5. CAD: on aspirin, plavix and atorvastatin 6. Status post ICD implantation * His ICD has been interrogated recently and there is been no significant abnormality and no VT or VF episodes. He will continue to follow-up in our pacemaker clinic. * Overall his prognosis appears to be guarded due to his reduced ejection fraction and his low blood pressure. He however appears to be doing much better overall.
[2018-10-05 07:40] LABS: Bacteria 2+ /hpf (None Seen); Red Blood Cells-Urine 10-25 SEEN /hpf (0-5); Squamous Epithelial Cells - UA 0-5 SEEN /hpf (0-5); White Blood Cells 10-25 SEEN /hpf (0-5)
[2018-10-05] MEDS: Gabapentin 100 MG Capsule PO ×3 (08:55→16:51)
[2018-10-05] MEDS: Insulin Lispro 100 UNIT/ML INSULN.PEN SQ ×3 (10:48→22:27)
[2018-10-05] MEDS: Ferrous Sulfate 325 MG Tablet PO ×2 (10:48→16:51)
[2018-10-05 11:16] LABS: Bedside Glucose 221 mg/dL (70-110)
--- NOTE | 2018-10-05 12:21 | PCM.PROGNOTE ---
<Judy Humphreys - Last Filed: 10/05/18 12:25> Patient Problems: Active and Suspected Problems (Last Reviewed 09/30/18 @ 11:55 by Keven Willingham MD) Congestive heart failure (Acute) Subjective: Patient seen and examined. No acute events overnight. Denies current complaints. Kidney function worse from yesterday, continue to hold diuretics for another 24 hours. - Physical Exam General: Alert, Oriented x3, Cooperative HEENT: Atraumatic, PERRLA, EOMI, Normocephalic Neck: Supple, No JVD, Negative Carotid Bruits Lungs: Clear to auscultation, Diminished Cardiovascular: Regular rate, Regular Rhythm, Normal S1, Normal S2, No murmurs Abdomen: Bowel Sounds Present, Soft, Non Tender, Non-Distended Extremities: No clubbing, No cyanosis, Edema - Nonpitting bilateral lower extremities Skin: - - Left medial lower leg wound from prior vascular intervention, left foot venous stasis ulcerations. Dressing clean dry and intact. Chronic venous stasis skin changes bilateral lower extremities. Musculoskeletal: No Tenderness to Palpation of Joints or Extremities Neurological: Cranial nerves II-XII grossly intact, Neuro grossly intact Psych/Mental Status: Normal Affect, Appropriate Vital Signs Temp Pulse Resp BP Pulse Ox 97.9 F 80 18 98/59 L 99 10/05/18 10:50 10/05/18 10:50 10/05/18 10:50 10/05/18 10:50 10/05/18 10:50 Oxygen Flow Rate (L/min) 24 Oxygen Delivery Method Room Air Weight: 202 lb 13.204 oz Body Mass Index (BMI) 39.1 Finger Stick Blood Glucose 87 Intake and Output for Last 24 Hours 10/03/18 10/04/18 10/05/18 23:59 23:59 23:59 Intake Total 1097 / 1097 580 / 580 720 / 720 Output Total 3475 / 3475 975 / 975 500 / 500 Balance -2378 / -2378 -395 / -395 220 / 220 Laboratory Tests Past 24 Hrs 10/05/18 10/05/18 10/05/18 06:10 06:44 06:44 WBC 4.9 RBC 4.83 Hgb 12.1 L Hct 39.3 L MCV 81.4 MCH 25.1 L MCHC 30.8 L RDW 19.7 H RDW Differential 57.7 H Plt Count 171 MPV 10.1 PT 19.2 H INR 1.6 APTT 32.6 Sodium Potassium Chloride Carbon Dioxide Anion Gap BUN Creatinine Estim Creat Clear Calc Est GFR (MDRD) Af Amer Est GFR (MDRD) Non-Af BUN/Creatinine Ratio Glucose Calcium Urine Color Yellow Urine Clarity Cloudy Urine pH 7.0 Ur Specific [place] 1.010 Urine Protein 15 H Urine Glucose (UA) Normal Urine Ketones Negative Urine Occult Blood 250 H Urine Nitrite Negative Urine Bilirubin Negative Urine Urobilinogen Normal Ur Leukocyte Esterase 500 H Urine RBC 10-25 SEEN Urine WBC 10-25 SEEN Ur Squamous Epith Cells 0-5 SEEN Urine Bacteria 2+ Urine Mucus 0 SEEN 10/05/18 06:44 WBC RBC Hgb Hct MCV MCH MCHC RDW RDW Differential Plt Count MPV PT INR APTT Sodium 135 L Potassium 4.6 Chloride 102 Carbon Dioxide 29.0 Anion Gap 4 L BUN 44 H Creatinine 1.57 H Estim Creat Clear Calc 46.24 Est GFR (MDRD) Af Amer 59 L Est GFR (MDRD) Non-Af 49 L BUN/Creatinine Ratio 28.0 H Glucose 159 H Calcium 8.4 L Urine Color Urine Clarity Urine pH Ur Specific [place] Urine Protein Urine Glucose (UA) Urine Ketones Urine Occult Blood Urine Nitrite Urine Bilirubin Urine Urobilinogen Ur Leukocyte Esterase Urine RBC Urine WBC Ur Squamous Epith Cells Urine Bacteria Urine Mucus POC Glucose 10/05/18 10/05/18 10/04/18 10:46 06:22 21:15 POC Glucose 221 H 154 H 200 H 10/04/18 17:18 POC Glucose 188 H Medical Necessity - Tobacco Use Smoking Status: Former smoker Tobacco Use: Cigarettes Assessment/Plan All Active Problems (Last Reviewed 09/30/18 @ 11:55 by Keven Willingham MD) Congestive heart failure (Acute) History of coronary artery stent placement (Resolved 05/29/09) Altered mental status (Resolved) Pleural effusion, left (Resolved) Pneumonia (Resolved) 1. Acute hypoxic respiratory failure secondary to acute on chronic systolic CHF/ischemic cardiomyopathy-Echocardiogram 09/07/2018 with EF 25%. BNP 446. Strict I&O. Daily weight. Cardiology following. Patient follows with Dr. Willingham. Plan for left heart catheterization when patient is stable. IV dobutamine and IV Lasix drip discontinued 10/03/18. Oral Lasix on hold due to acute kidney injury. Entresto, Coreg, metolazone on hold due to hypotension. Patient's oxygen currently stable on room air, weaned off of BiPAP and supplement oxygen. 2. Hypotension-improved. Antihypertensive regimen on hold as noted above. 3. Atrial fibrillation status post ablation/status post ICD-on Coumadin. INR previously supratherapeutic. INR now 1.6. Continue to hold Coumadin given plans for cath. 4. Acute kidney injury on chronic kidney disease stage III-secondary to diuretic regimen. Hold diuretic regimen. Trend BMP. If kidney function continues to worsen, consult nephrology. 5. Normocytic anemia, iron deficiency anemia-continue iron supplementation. Trend CBC. 6. Hypertension-home carvedilol, spironolactone, Entresto regimen on hold due to hypotension. Cardiology recommending discontinuing spironolactone going forward. 7. Type 2 diabetes rjthleaz-Hbyz-Dautu AC at bedtime with sliding scale insulin. 8. Recent PAD status post bypass surgery with left lower extremity wound-wound RN consult. Continue aspirin, Plavix, statin. Dressing intact. 9. CAD status post stents-continue aspirin, statin, Plavix. 10. Chronic venous stasis wounds/foot ulcerations LLE-wound RN consult. Vinnie wraps bilateral lower extremities. 11. BPH-continue Flomax regimen. DVT prophylaxis-Coumadin This patient was seen by PRIIMTIVO Smith under the supervision of Dr. Finch. <Mark Finch - Last Filed: 10/05/18 15:50> - Physical Exam General: Alert, Cooperative HEENT: Atraumatic, Normocephalic Neck: No Nodes, Thyroid Normal Size and Texture Lungs: Clear to auscultation, Normal air movement, No rhonchi, No wheeze Cardiovascular: Regular rate, Regular Rhythm, Normal S1, Normal S2, No murmurs Abdomen: Bowel Sounds Present, Soft, Non Tender, Non-Distended Extremities: No clubbing, No cyanosis, Edema Skin: - Musculoskeletal: No Tenderness to Palpation of Joints or Extremities Psych/Mental Status: Normal Affect, Appropriate Vital Signs Temp Pulse Resp BP Pulse Ox 36.6 C 80 18 98/59 L 99 10/05/18 10:50 10/05/18 10:50 10/05/18 10:50 10/05/18 10:50 10/05/18 10:50 Oxygen Flow Rate (L/min) 24 Oxygen Delivery Method Room Air Weight: 92 kg Body Mass Index (BMI) 39.1 Finger Stick Blood Glucose 87 Intake and Output for Last 24 Hours 10/03/18 10/04/18 10/05/18 23:59 23:59 23:59 Intake Total 1097 / 1097 580 / 580 720 / 720 Output Total 3475 / 3475 975 / 975 500 / 500 Balance -2378 / -2378 -395 / -395 220 / 220 Laboratory Tests Past 24 Hrs 10/05/18 10/05/18 10/05/18 06:10 06:44 06:44 WBC 4.9 RBC 4.83 Hgb 12.1 L Hct 39.3 L MCV 81.4 MCH 25.1 L MCHC 30.8 L RDW 19.7 H RDW Differential 57.7 H Plt Count 171 MPV 10.1 PT 19.2 H INR 1.6 APTT 32.6 Sodium Potassium Chloride Carbon Dioxide Anion Gap BUN Creatinine Estim Creat Clear Calc Est GFR (MDRD) Af Amer Est GFR (MDRD) Non-Af BUN/Creatinine Ratio Glucose Calcium Urine Color Yellow Urine Clarity Cloudy Urine pH 7.0 Ur Specific [place] 1.010 Urine Protein 15 H Urine Glucose (UA) Normal Urine Ketones Negative Urine Occult Blood 250 H Urine Nitrite Negative Urine Bilirubin Negative Urine Urobilinogen Normal Ur Leukocyte Esterase 500 H Urine RBC 10-25 SEEN Urine WBC 10-25 SEEN Ur Squamous Epith Cells 0-5 SEEN Urine Bacteria 2+ Urine Mucus 0 SEEN 10/05/18 06:44 WBC RBC Hgb Hct MCV MCH MCHC RDW RDW Differential Plt Count MPV PT INR APTT Sodium 135 L Potassium 4.6 Chloride 102 Carbon Dioxide 29.0 Anion Gap 4 L BUN 44 H Creatinine 1.57 H Estim Creat Clear Calc 46.24 Est GFR (MDRD) Af Amer 59 L Est GFR (MDRD) Non-Af 49 L BUN/Creatinine Ratio 28.0 H Glucose 159 H Calcium 8.4 L Urine Color Urine Clarity Urine pH Ur Specific [place] Urine Protein Urine Glucose (UA) Urine Ketones Urine Occult Blood Urine Nitrite Urine Bilirubin Urine Urobilinogen Ur Leukocyte Esterase Urine RBC Urine WBC Ur Squamous Epith Cells Urine Bacteria Urine Mucus POC Glucose 10/05/18 10/05/18 10/04/18 10:46 06:22 21:15 POC Glucose 221 H 154 H 200 H 10/04/18 17:18 POC Glucose 188 H Assessment/Plan Patient seen and examined independently. Data reviewed. I agree with the above note by the nurse practitioner. 1. acute HFrEF improved (weight 106.6 to 103.1) EF 25% from 09/07/18 Lasix held give ADALBERTO cardiology following. carvedilol, spironolactone, entresto held due to hypotension tentative plan for LHC on 10/06 2. hypotension: improved likely cardiogenic 3. Acute hypoxic respiratory failure POA, was 87% on 5Liters with labored breathing, temporarily requiring BiPAP. 2/2 HF improved now on room air 4. CKD3 worse today continue to monitor 5. pAfib carvedilol held due to hypotension, resume when safe anticoagulated, restart coumadin after LHC 6. Coagulopathy no bleeding continue to hold coumadin for now. 7. VTE prophylaxis: heparin as INR is subtherapuetic Code Visit Inpatient E&M: 38558 Subs Hosp L2
--- NOTE | 2018-10-05 12:24 | PN_ITS ---
<Judy Humphreys - Last Filed: 10/05/18 12:25> Patient Problems: Active and Suspected Problems (Last Reviewed 09/30/18 @ 11:55 by Keven Willingham MD) Congestive heart failure (Acute) Subjective: Patient seen and examined. No acute events overnight. Denies current complaints. Kidney function worse from yesterday, continue to hold diuretics for another 24 hours. - Physical Exam General: Alert, Oriented x3, Cooperative HEENT: Atraumatic, PERRLA, EOMI, Normocephalic Neck: Supple, No JVD, Negative Carotid Bruits Lungs: Clear to auscultation, Diminished Cardiovascular: Regular rate, Regular Rhythm, Normal S1, Normal S2, No murmurs Abdomen: Bowel Sounds Present, Soft, Non Tender, Non-Distended Extremities: No clubbing, No cyanosis, Edema - Nonpitting bilateral lower extremities Skin: - - Left medial lower leg wound from prior vascular intervention, left foot venous stasis ulcerations. Dressing clean dry and intact. Chronic venous stasis skin changes bilateral lower extremities. Musculoskeletal: No Tenderness to Palpation of Joints or Extremities Neurological: Cranial nerves II-XII grossly intact, Neuro grossly intact Psych/Mental Status: Normal Affect, Appropriate Vital Signs Temp Pulse Resp BP Pulse Ox 97.9 F 80 18 98/59 L 99 10/05/18 10:50 10/05/18 10:50 10/05/18 10:50 10/05/18 10:50 10/05/18 10:50 Oxygen Flow Rate (L/min) 24 Oxygen Delivery Method Room Air Weight: 202 lb 13.204 oz Body Mass Index (BMI) 39.1 Finger Stick Blood Glucose 87 Intake and Output for Last 24 Hours 10/03/18 10/04/18 10/05/18 23:59 23:59 23:59 Intake Total 1097 / 1097 580 / 580 720 / 720 Output Total 3475 / 3475 975 / 975 500 / 500 Balance -2378 / -2378 -395 / -395 220 / 220 Laboratory Tests Past 24 Hrs 10/05/18 10/05/18 10/05/18 06:10 06:44 06:44 WBC 4.9 RBC 4.83 Hgb 12.1 L Hct 39.3 L MCV 81.4 MCH 25.1 L MCHC 30.8 L RDW 19.7 H RDW Differential 57.7 H Plt Count 171 MPV 10.1 PT 19.2 H INR 1.6 APTT 32.6 Sodium Potassium Chloride Carbon Dioxide Anion Gap BUN Creatinine Estim Creat Clear Calc Est GFR (MDRD) Af Amer Est GFR (MDRD) Non-Af BUN/Creatinine Ratio Glucose Calcium Urine Color Yellow Urine Clarity Cloudy Urine pH 7.0 Ur Specific [place] 1.010 Urine Protein 15 H Urine Glucose (UA) Normal Urine Ketones Negative Urine Occult Blood 250 H Urine Nitrite Negative Urine Bilirubin Negative Urine Urobilinogen Normal Ur Leukocyte Esterase 500 H Urine RBC 10-25 SEEN Urine WBC 10-25 SEEN Ur Squamous Epith Cells 0-5 SEEN Urine Bacteria 2+ Urine Mucus 0 SEEN 10/05/18 06:44 WBC RBC Hgb Hct MCV MCH MCHC RDW RDW Differential Plt Count MPV PT INR APTT Sodium 135 L Potassium 4.6 Chloride 102 Carbon Dioxide 29.0 Anion Gap 4 L BUN 44 H Creatinine 1.57 H Estim Creat Clear Calc 46.24 Est GFR (MDRD) Af Amer 59 L Est GFR (MDRD) Non-Af 49 L BUN/Creatinine Ratio 28.0 H Glucose 159 H Calcium 8.4 L Urine Color Urine Clarity Urine pH Ur Specific [place] Urine Protein Urine Glucose (UA) Urine Ketones Urine Occult Blood Urine Nitrite Urine Bilirubin Urine Urobilinogen Ur Leukocyte Esterase Urine RBC Urine WBC Ur Squamous Epith Cells Urine Bacteria Urine Mucus POC Glucose 10/05/18 10/05/18 10/04/18 10:46 06:22 21:15 POC Glucose 221 H 154 H 200 H 10/04/18 17:18 POC Glucose 188 H Medical Necessity - Tobacco Use Smoking Status: Former smoker Tobacco Use: Cigarettes Assessment/Plan All Active Problems (Last Reviewed 09/30/18 @ 11:55 by Keven Willingham MD) Congestive heart failure (Acute) History of coronary artery stent placement (Resolved 05/29/09) Altered mental status (Resolved) Pleural effusion, left (Resolved) Pneumonia (Resolved) 1. Acute hypoxic respiratory failure secondary to acute on chronic systolic CHF/ischemic cardiomyopathy-Echocardiogram 09/07/2018 with EF 25%. BNP 446. Strict I&O. Daily weight. Cardiology following. Patient follows with Dr. Willingham. Plan for left heart catheterization when patient is stable. IV dobutamine and IV Lasix drip discontinued 10/03/18. Oral Lasix on hold due to acute kidney injury. Entresto, Coreg, metolazone on hold due to hypotension. Patient's oxygen currently stable on room air, weaned off of BiPAP and supplement oxygen. 2. Hypotension-improved. Antihypertensive regimen on hold as noted above. 3. Atrial fibrillation status post ablation/status post ICD-on Coumadin. INR previously supratherapeutic. INR now 1.6. Continue to hold Coumadin given plans for cath. 4. Acute kidney injury on chronic kidney disease stage III-secondary to diuretic regimen. Hold diuretic regimen. Trend BMP. If kidney function continues to worsen, consult nephrology. 5. Normocytic anemia, iron deficiency anemia-continue iron supplementation. Trend CBC. 6. Hypertension-home carvedilol, spironolactone, Entresto regimen on hold due to hypotension. Cardiology recommending discontinuing spironolactone going forward. 7. Type 2 diabetes [id number] AC at bedtime with sliding scale insulin. 8. Recent PAD status post bypass surgery with left lower extremity wound-wound RN consult. Continue aspirin, Plavix, statin. Dressing intact. 9. CAD status post stents-continue aspirin, statin, Plavix. 10. Chronic venous stasis wounds/foot ulcerations LLE-wound RN consult. Vinnie wraps bilateral lower extremities. 11. BPH-continue Flomax regimen. DVT prophylaxis-Coumadin This patient was seen by PRIMITIVO Smith under the supervision of Dr. Finch. <Mark Finch - Last Filed: 10/05/18 15:50> - Physical Exam General: Alert, Cooperative HEENT: Atraumatic, Normocephalic Neck: No Nodes, Thyroid Normal Size and Texture Lungs: Clear to auscultation, Normal air movement, No rhonchi, No wheeze Cardiovascular: Regular rate, Regular Rhythm, Normal S1, Normal S2, No murmurs Abdomen: Bowel Sounds Present, Soft, Non Tender, Non-Distended Extremities: No clubbing, No cyanosis, Edema Skin: - Musculoskeletal: No Tenderness to Palpation of Joints or Extremities Psych/Mental Status: Normal Affect, Appropriate Vital Signs Temp Pulse Resp BP Pulse Ox 36.6 C 80 18 98/59 L 99 10/05/18 10:50 10/05/18 10:50 10/05/18 10:50 10/05/18 10:50 10/05/18 10:50 Oxygen Flow Rate (L/min) 24 Oxygen Delivery Method Room Air Weight: 92 kg Body Mass Index (BMI) 39.1 Finger Stick Blood Glucose 87 Intake and Output for Last 24 Hours 10/03/18 10/04/18 10/05/18 23:59 23:59 23:59 Intake Total 1097 / 1097 580 / 580 720 / 720 Output Total 3475 / 3475 975 / 975 500 / 500 Balance -2378 / -2378 -395 / -395 220 / 220 Laboratory Tests Past 24 Hrs 10/05/18 10/05/18 10/05/18 06:10 06:44 06:44 WBC 4.9 RBC 4.83 Hgb 12.1 L Hct 39.3 L MCV 81.4 MCH 25.1 L MCHC 30.8 L RDW 19.7 H RDW Differential 57.7 H Plt Count 171 MPV 10.1 PT 19.2 H INR 1.6 APTT 32.6 Sodium Potassium Chloride Carbon Dioxide Anion Gap BUN Creatinine Estim Creat Clear Calc Est GFR (MDRD) Af Amer Est GFR (MDRD) Non-Af BUN/Creatinine Ratio Glucose Calcium Urine Color Yellow Urine Clarity Cloudy Urine pH 7.0 Ur Specific [place] 1.010 Urine Protein 15 H Urine Glucose (UA) Normal Urine Ketones Negative Urine Occult Blood 250 H Urine Nitrite Negative Urine Bilirubin Negative Urine Urobilinogen Normal Ur Leukocyte Esterase 500 H Urine RBC 10-25 SEEN Urine WBC 10-25 SEEN Ur Squamous Epith Cells 0-5 SEEN Urine Bacteria 2+ Urine Mucus 0 SEEN 10/05/18 06:44 WBC RBC Hgb Hct MCV MCH MCHC RDW RDW Differential Plt Count MPV PT INR APTT Sodium 135 L Potassium 4.6 Chloride 102 Carbon Dioxide 29.0 Anion Gap 4 L BUN 44 H Creatinine 1.57 H Estim Creat Clear Calc 46.24 Est GFR (MDRD) Af Amer 59 L Est GFR (MDRD) Non-Af 49 L BUN/Creatinine Ratio 28.0 H Glucose 159 H Calcium 8.4 L Urine Color Urine Clarity Urine pH Ur Specific [place] Urine Protein Urine Glucose (UA) Urine Ketones Urine Occult Blood Urine Nitrite Urine Bilirubin Urine Urobilinogen Ur Leukocyte Esterase Urine RBC Urine WBC Ur Squamous Epith Cells Urine Bacteria Urine Mucus POC Glucose 10/05/18 10/05/18 10/04/18 10:46 06:22 21:15 POC Glucose 221 H 154 H 200 H 10/04/18 17:18 POC Glucose 188 H Assessment/Plan Patient seen and examined independently. Data reviewed. I agree with the above note by the nurse practitioner. 1. acute HFrEF * improved (weight 106.6 to 103.1) * EF 25% from 09/07/18 * Lasix held give ADALBERTO * cardiology following. * carvedilol, spironolactone, entresto held due to hypotension * tentative plan for LHC on 10/06 2. hypotension: * improved * likely cardiogenic 3. Acute hypoxic respiratory failure * POA, was 87% on 5Liters with labored breathing, temporarily requiring BiPAP. * 2/2 HF * improved * now on room air 4. CKD3 * worse today * continue to monitor 5. pAfib * carvedilol held due to hypotension, resume when safe * anticoagulated, restart coumadin after LHC 6. Coagulopathy * no bleeding * continue to hold coumadin for now. 7. VTE prophylaxis: heparin as INR is subtherapuetic Code Visit Inpatient E&M: 93828 Subs Hosp L2
[2018-10-05] MEDS: Heparin Injection (Vial) 5,000 UNIT/ML VIAL 5000 UNIT SC ×2 (13:57→22:32)
[2018-10-05] MEDS: Tamsulosin HCl 0.4 MG Capsule PO (16:52)
[2018-10-05 17:05] LABS: Bedside Glucose 151 mg/dL (70-110)
[2018-10-05] MEDS: Atorvastatin Calcium 40 MG Tablet PO (22:28)
[2018-10-06] VITALS (12 sets, daily range): BP systolic 83–98; BP diastolic 55–70; PULSE 70–84; RESP 11–18; TEMP 36.6–36.8; O2SAT 93–100
[2018-10-06 00:50] LABS: Bedside Glucose 179 mg/dL (70-110)
[2018-10-06 05:32] LABS: Absolute Lymphocyte Count 0.88 X10^3/ul (0.83-4.51); Absolute Neutrophil Count 2.6 X10^3/uL (2.0-7.7); Basophil# 0.02 X10^3/uL; Basophil% 0.5 % (0-1); Eosinophil# 0.12 X10^3/uL; Hematocrit 38.8 % (40-54); Hemoglobin 11.9 g/dl (13.0-16.5); Lymphocyte # 0.88 X10^3/ul (4.0); Lymphocyte % 21.9 % (19-41); Mean Corp Hgb Conc 30.7 g/gl (32-36); Mean Corpuscular Hgb 24.8 pg (27.0-32.0); Monocyte# 0.41 X10^3/uL; Monocyte% 10.2 % (0-10); Neutrophil # 2.58 X10^3/uL (2.7-7.7); Neutrophil % 64.2 % (47-70); Platelet Count 175 K/mm3 (150-450); RBC Distribution Width CV 19.8 % (11.6-14.6); RBC Distribution Width SD 57.5 fl (35.1-43.9); Red Blood Count 4.79 M/mm3 (4.6-6.2)
[2018-10-06 05:38] LABS: International Normalized Ratio 1.4; Prothrombin Time (Protime)PT. 16.8 SECONDS (11.7-14.9)
[2018-10-06 05:39] LABS: Partial Thromboplast Time 33.2 Seconds (24.1-36.2)
[2018-10-06 05:44] LABS: POSITIVE COUNT NO; POSITIVE DIFFERENTIAL NO; POSITIVE MORPHOLOGY NO
[2018-10-06 05:47] LABS: Anion Gap 9 (5-15); BUN 52 mg/dL (7-18); BUN/Creat Ratio 40.6 RATIO (10-20); Calcium,Total 8.7 mg/dL (8.5-10.1); Chloride 103 mmol/L (98-107); Creatinine, Serum 1.28 mg/dL (0.70-1.30); EST Glomerular Filtration Rate 62 mL/min (>60); Est Glom Filt Rate - Afr Amer 75 mL/min (>60); Estimated Creatinine Clearance 56.72 ml/min; Glucose 148 mg/dL (74-106); Potassium 4.5 mmol/L (3.5-5.1); Sodium Level 138 mmol/L (136-145)
--- NOTE | 2018-10-06 05:55 | EKG12_ITS ---
Test Reason : AM EKG Blood Pressure : / mmHG Vent. Rate : 080 BPM Atrial Rate : 043 BPM P-R Int : 000 ms QRS Dur : 178 ms QT Int : 476 ms P-R-T Axes : 000 -43 048 degrees QTc Int : 548 ms Ventricular-paced rhythm Biventricular pacemaker detected Abnormal ECG When compared with ECG of 05-OCT-2018 05:35, MANUAL COMPARISON REQUIRED, DATA IS UNCONFIRMED Confirmed by ALECIA NATION ([id number]), senior editor CHRISTIAN HUIZAR ([id number]) on 10/11/2018 4:46:03 PM Referred By: Mildred Terry Confirmed By:JASON NATION
[2018-10-06] MEDS: Clopidogrel Bisulfate 75 MG Tablet PO (06:17)
[2018-10-06] MEDS: Aspirin 81 MG TAB.CHEW PO (06:17)
[2018-10-06] MEDS: Acetaminophen 500 MG Tablet 1000 MG PO ×2 (06:17→14:01)
--- NOTE | 2018-10-06 06:58 | NURSING ---
Report called to Yose[facility] in [facility] lab technician. Informed that pt BP running low and that his Entresto was not given this AM.
[2018-10-06 07:00] LABS: Bedside Glucose 161 mg/dL (70-110)
--- NOTE | 2018-10-06 08:02 | PCM.PN.CARD ---
Subjectve: Patient seen and evaluated. Objective: Vital Signs Temp Pulse Resp BP Pulse Ox 98.3 F 80 16 89/67 L 98 10/06/18 06:14 10/06/18 06:14 10/06/18 06:14 10/06/18 06:14 10/06/18 06:14 Oxygen Flow Rate (L/min) 24 Oxygen Delivery Method Room Air Weight: 202 lb 9.677 oz Body Mass Index (BMI) 39.1 Finger Stick Blood Glucose 87 Intake and Output for Last 24 Hours 10/04/18 10/05/18 10/06/18 23:59 23:59 23:59 Intake Total 580 / 580 1420 / 1420 0 / 0 Output Total 975 / 975 500 / 500 300 / 300 Balance -395 / -395 920 / 920 -300 / -300 General: Awake, Alert, Oriented x 3 HEENT: PERRL, EOMI, Sclera Non Icteric Neck: Supple, Good ROM, No Lymph Node Enlargement Lungs: Clear to auscultation Cardiovascular: Regular Rhythm, Normal S1, Normal S2, No Murmurs, No Rubs, No Gallops Vascular: No Carotid Bruits, Normal Femoral Pulses, Normal Radial Pulses, Normal Dorsalis Pedal Pulse, Normal Posterior Tibial Pulses Abdomen: Bowel Sounds Present, Soft, Non Tender, No HSM, No Organomegaly Extremities: No Cyanosis, No Clubbing, No edema Neurological: No Focal Motor or Sensory Deficit 10/06/18 05:00: PT 16.8 H, INR 1.4, APTT 33.2 10/06/18 05:00: Sodium 138, Potassium 4.5, Chloride 103, Carbon Dioxide 26.0, Anion Gap 9, BUN 52 H, Creatinine 1.28, Est GFR (MDRD) Af Amer 75, Est GFR (MDRD) Non-Af 62, BUN/Creatinine Ratio 40.6 H, Glucose 148 H, Calcium 8.7 10/06/18 05:00: WBC 4.0 L, RBC 4.79, Hgb 11.9 L, Hct 38.8 L, MCV 81.0, MCH 24.8 L, MCHC 30.7 L, RDW 19.8 H, RDW Differential 57.5 H, Plt Count 175, MPV 10.0, Immature Gran % (Auto) 0.200, Neut % (Auto) 64.2, Lymph % (Auto) 21.9, [place] % (Auto) 10.2 H, Eos % (Auto) 3.0, Baso % (Auto) 0.5, Absolute Neuts (auto) 2.6, Total Counted Not Reportable Rhythm: EKG: ECHO: Stress Test: Cardiac Cath: PCI: CT Surgery: Holter monitor: EPS: PPM: CXR: Chest CT Scan: Medical Necessity - Tobacco Use Smoking Status: Former smoker Tobacco Use: Cigarettes Assessment/Plan 1. Acute hypoxic respiratory failure due to acute on chronic HFrEF. The exact precipitating factor on the above is not entirely clear at this time. He has had significant diuresis over the weekend and is breathing much better. BNP is ~ 447 CXR shows pulmonary edema with small bilateral pleural effusions-with improvement 2. Acute on chronic HFrEF has known EF of 25% per echo, with ICD in place. He definitely had anasarca. He was treated with intravenous Lasix and dobutamine and made significant improvement. We will slowly try and add back on the beta-ronn and the Entresto. Will hold off on diuretics for another 24 hours. Renal function appears to be headed in the wrong direction. 3. CAD and ischemic cardiomyopathy s/p AICD. EF is 25% per echo in 09/10, with moderately dilated LV and regional wall motion abnormalities on aspirin, plavix, carvedilol and entresto. Left heart catheterization today was attempted via the right radial approach. Severe peripheral vascular disease noted. No left radial pulses noted and patient has had bilateral femoral angioplasty. In light of the fact that the patient has not had any angina would recommend either CTA or a pharmacologic myocardial perfusion stress test. Unless the above demonstrate significant stenosis medical therapy be continued. 4. paroxysmal afib: rate and rhythm controlled. 5. CAD: on aspirin, plavix and atorvastatin 6. Status post ICD implantation His ICD has been interrogated recently and there is been no significant abnormality and no VT or VF episodes. He will continue to follow-up in our pacemaker clinic. Overall his prognosis appears to be guarded due to his reduced ejection fraction and his low blood pressure. He however appears to be doing much better overall.
--- NOTE | 2018-10-06 08:05 | PN.CARD_ITS ---
Subjectve: Patient seen and evaluated. Objective: Vital Signs Temp Pulse Resp BP Pulse Ox 98.3 F 80 16 89/67 L 98 10/06/18 06:14 10/06/18 06:14 10/06/18 06:14 10/06/18 06:14 10/06/18 06:14 Oxygen Flow Rate (L/min) 24 Oxygen Delivery Method Room Air Weight: 202 lb 9.677 oz Body Mass Index (BMI) 39.1 Finger Stick Blood Glucose 87 Intake and Output for Last 24 Hours 10/04/18 10/05/18 10/06/18 23:59 23:59 23:59 Intake Total 580 / 580 1420 / 1420 0 / 0 Output Total 975 / 975 500 / 500 300 / 300 Balance -395 / -395 920 / 920 -300 / -300 General: Awake, Alert, Oriented x 3 HEENT: PERRL, EOMI, Sclera Non Icteric Neck: Supple, Good ROM, No Lymph Node Enlargement Lungs: Clear to auscultation Cardiovascular: Regular Rhythm, Normal S1, Normal S2, No Murmurs, No Rubs, No Gallops Vascular: No Carotid Bruits, Normal Femoral Pulses, Normal Radial Pulses, Normal Dorsalis Pedal Pulse, Normal Posterior Tibial Pulses Abdomen: Bowel Sounds Present, Soft, Non Tender, No HSM, No Organomegaly Extremities: No Cyanosis, No Clubbing, No edema Neurological: No Focal Motor or Sensory Deficit 10/06/18 05:00: PT 16.8 H, INR 1.4, APTT 33.2 10/06/18 05:00: Sodium 138, Potassium 4.5, Chloride 103, Carbon Dioxide 26.0, Anion Gap 9, BUN 52 H, Creatinine 1.28, Est GFR (MDRD) Af Amer 75, Est GFR (MDRD) Non-Af 62, BUN/Creatinine Ratio 40.6 H, Glucose 148 H, Calcium 8.7 10/06/18 05:00: WBC 4.0 L, RBC 4.79, Hgb 11.9 L, Hct 38.8 L, MCV 81.0, MCH 24.8 L, MCHC 30.7 L, RDW 19.8 H, RDW Differential 57.5 H, Plt Count 175, MPV 10.0, I mmature Gran % (Auto) 0.200, Neut % (Auto) 64.2, Lymph % (Auto) 21.9, [place] % (Auto) 10.2 H, Eos % (Auto) 3.0, Baso % (Auto) 0.5, Absolute Neuts (auto) 2.6, Total Counted Not Reportable Rhythm: EKG: ECHO: Stress Test: Cardiac Cath: PCI: CT Surgery: Holter monitor: EPS: PPM: CXR: Chest CT Scan: Medical Necessity - Tobacco Use Smoking Status: Former smoker Tobacco Use: Cigarettes Assessment/Plan 1. Acute hypoxic respiratory failure due to acute on chronic HFrEF. The exact precipitating factor on the above is not entirely clear at this time. He has had significant diuresis over the weekend and is breathing much better. * BNP is ~ 447 * CXR shows pulmonary edema with small bilateral pleural effusions-with improvement * 2. Acute on chronic HFrEF * has known EF of 25% per echo, with ICD in place. He definitely had anasarca. * He was treated with intravenous Lasix and dobutamine and made significant improvement. We will slowly try and add back on the beta-ronn and the Entresto. * Will hold off on diuretics for another 24 hours. Renal function appears to be headed in the wrong direction. * 3. CAD and ischemic cardiomyopathy * s/p AICD. EF is 25% per echo in 09/10, with moderately dilated LV and regional wall motion abnormalities * on aspirin, plavix, carvedilol and entresto. * Left heart catheterization today was attempted via the right radial approach. Severe peripheral vascular disease noted. No left radial pulses noted and patient has had bilateral femoral angioplasty. In light of the fact that the patient has not had any angina would recommend either CTA or a pharmacologic myocardial perfusion stress test. Unless the above demonstrate significant stenosis medical therapy be continued. 4. paroxysmal afib: rate and rhythm controlled. 5. CAD: on aspirin, plavix and atorvastatin 6. Status post ICD implantation * His ICD has been interrogated recently and there is been no significant abnormality and no VT or VF episodes. He will continue to follow-up in our pacemaker clinic. * Overall his prognosis appears to be guarded due to his reduced ejection fraction and his low blood pressure. He however appears to be doing much better overall.
--- NOTE | 2018-10-06 09:01 | CASEMGMT ---
Addendum entered by Magalys Amos 10/06/18 14:01: Received call from Sheryl at [facility] and patient can return today. NATALY notified [facility]. Magalys SU[facility] Original Note: Addendum entered by Magalys Amos 10/06/18 13:41: Patient is ready today. NATALY called [facility] back and spoke with Sheryl. NATALY explained originally SW thought he wouldn't be discharged until tomorrow. However, he is ready today. NATALY asked if they have insurance authorization. She was not sure as their admissions people were out. She will try and get a hold of them and call NATALY back. Magalys [employer] Original Note: NATALY faxed updates to [facility]. NATALY also called and spoke with Basilia as no one in admissions was available. NATALY let her know that patient will likely be ready tomorrow. Plan; d/c back to [facility] under skilled level of care. Magalys SUH
[2018-10-06] MEDS: Ferrous Sulfate 325 MG Tablet PO (11:44)
[2018-10-06] MEDS: Insulin Lispro 100 UNIT/ML INSULN.PEN SQ (11:45)
[2018-10-06] MEDS: Gabapentin 100 MG Capsule PO (11:45)
[2018-10-06] MEDS: Furosemide 20 MG Tablet 60 MG PO (11:47)
--- NOTE | 2018-10-06 12:32 | STRESSREP_ITS ---
Stress Test Report Pharmacologic myocardial perfusion stress test. 57-year-old male with a history of previous LAD stenting and cardiomyopathy. Stress protocol: Resting EKG demonstrates atrial fibrillation with a rate of 80 bpm with ventricular pacing. Resting blood pressure is 90/60 mmHg. 0.4 mg of regadenoson was infused per usual protocol followed by rapid intravenous saline flush injection continuous EKG monitoring was performed. Patient maintained atrial fibrillation with ventricular pacing throughout the recording. There were no ST or T wave changes noted suggest abnormal flow reserve. The resting heart rate was 80 bpm the maximum heart rate of 106 bpm. Myocardial perfusion protocol. 14.7 mCi of technetium 99m sestamibi was injected at rest. 0.4 mg of regadenoson was infused per usual protocol peak infusion 44.1 mCi of technetium 99m sestamibi was injected stress images were obtained stress and rest images were reconstructed in comparing the short axis vertical and horizontal long axis. Gated images were also obtained next Perfusion SPECT analysis: Review of the stress images demonstrate a dilated cardiac silhouette size. T here is a large defect noted in the anterior wall extending to the apex as well as the anterior septal wall and a small part of the inferoapical wall. The resting images demonstrate a similar defect. The above is suggestive of a previous extensive anterior wall myocardial infarction extending to the apex. The inferior wall and the lateral wall and inferolateral wall appear to be normally perfused. No areas of reversibility are noted suggest ischemia. Gated SPECT analysis: Who the gated ejection fraction is noted to be 31% with dyssynchrony present. Conclusion: Myocardial perfusion stress test with extensive previous anterior and apical infarct with no ischemia. Ischemic cardiomyopathy present.
[2018-10-06 13:02] LABS: Bedside Glucose 154 mg/dL (70-110)
--- NOTE | 2018-10-06 13:46 | PCM.PROGNOTE ---
Patient Problems: Active and Suspected Problems (Last Reviewed 09/30/18 @ 11:55 by Keven Willingham MD) Congestive heart failure (Acute) Subjective: Patient seen and examined. Cardiac catheterization attempted however unable to be completed due to PVD. Subsequently underwent a stress test which showed no ischemia. Okay for discharge from cardiology standpoint. SNF pre-cert pending. - Physical Exam General: Alert, Oriented x3, Cooperative HEENT: Atraumatic, PERRLA, EOMI, Normocephalic Neck: Supple, No JVD, Negative Carotid Bruits Lungs: Clear to auscultation, Diminished Cardiovascular: Regular rate, Regular Rhythm, Normal S1, Normal S2, No murmurs Abdomen: Bowel Sounds Present, Soft, Non Tender, Non-Distended Extremities: No clubbing, No cyanosis, No edema, Capillary Refill Less than 3 Seconds Skin: - - Left medial lower leg wound from prior vascular intervention, left foot venous stasis ulcerations. Dressing clean dry and intact. Chronic venous stasis skin changes bilateral lower extremities. Musculoskeletal: No Tenderness to Palpation of Joints or Extremities Neurological: Cranial nerves II-XII grossly intact, Neuro grossly intact Psych/Mental Status: Normal Affect, Appropriate Vital Signs Temp Pulse Resp BP Pulse Ox 97.9 F 81 18 95/69 95 10/06/18 08:28 10/06/18 10:00 10/06/18 10:00 10/06/18 10:00 10/06/18 10:00 Oxygen Flow Rate (L/min) 24 Oxygen Delivery Method Room Air Weight: 202 lb 9.677 oz Body Mass Index (BMI) 39.1 Finger Stick Blood Glucose 87 Intake and Output for Last 24 Hours 10/04/18 10/05/18 10/06/18 23:59 23:59 23:59 Intake Total 580 / 580 1420 / 1420 50 / 50 Output Total 975 / 975 500 / 500 600 / 600 Balance -395 / -395 920 / 920 -550 / -550 Laboratory Tests Past 24 Hrs 10/06/18 10/06/18 10/06/18 05:00 05:00 05:00 WBC 4.0 L RBC 4.79 Hgb 11.9 L Hct 38.8 L MCV 81.0 MCH 24.8 L MCHC 30.7 L RDW 19.8 H RDW Differential 57.5 H Plt Count 175 MPV 10.0 Immature Gran % (Auto) 0.200 Neut % (Auto) 64.2 Lymph % (Auto) 21.9 [place] % (Auto) 10.2 H Eos % (Auto) 3.0 Baso % (Auto) 0.5 Absolute Neuts (auto) 2.6 Absolute Lymphs (auto) 0.88 Total Counted Not Reportable PT 16.8 H INR 1.4 APTT 33.2 Sodium 138 Potassium 4.5 Chloride 103 Carbon Dioxide 26.0 Anion Gap 9 BUN 52 H Creatinine 1.28 Estim Creat Clear Calc 56.72 Est GFR (MDRD) Af Amer 75 Est GFR (MDRD) Non-Af 62 BUN/Creatinine Ratio 40.6 H Glucose 148 H Calcium 8.7 POC Glucose 10/06/18 10/06/18 10/05/18 11:43 06:59 22:26 POC Glucose 154 H 161 H 179 H 10/05/18 16:49 POC Glucose 151 H Medical Necessity - Tobacco Use Smoking Status: Former smoker Tobacco Use: Cigarettes Assessment/Plan All Active Problems (Last Reviewed 09/30/18 @ 11:55 by Keven Willingham MD) Congestive heart failure (Acute) History of coronary artery stent placement (Resolved 05/29/09) Altered mental status (Resolved) Pleural effusion, left (Resolved) Pneumonia (Resolved) 1. Acute hypoxic respiratory failure secondary to acute on chronic systolic CHF/ischemic cardiomyopathy-Echocardiogram 09/07/2018 with EF 25%. BNP 446. Strict I&O. Daily weight. Cardiology following. Patient follows with Dr. Willingham. Heart catheterization attempted however unable to be completed due to severe PVD. IV dobutamine and IV Lasix drip discontinued 10/03/18. Continue Lasix, Entresto, Coreg, when BP is able to tolerate. Metolazone discontinued. Patient's oxygen currently stable on room air, weaned off of BiPAP and supplement oxygen. 2. Hypotension-improved. Continue to monitor. 3. Atrial fibrillation status post ablation/status post ICD-on Coumadin. INR previously supratherapeutic. Resume Coumadin. 4. Acute kidney injury on chronic kidney disease stage III-secondary to diuretic regimen. ADALBERTO resolved. 5. Normocytic anemia, iron deficiency anemia-continue iron supplementation. Trend CBC. 6. Hypertension-on carvedilol, spironolactone, Entresto regimen at home. Cardiology recommending discontinuing spironolactone going forward. 7. Type 2 diabetes eaacaplf-Xuyv-Elyyo AC at bedtime with sliding scale insulin. 8. Recent PAD status post bypass surgery with left lower extremity wound-wound RN consult. Continue aspirin, Plavix, statin. Dressing intact. 9. CAD status post stents-continue aspirin, statin, Plavix. 10. Chronic venous stasis wounds/foot ulcerations LLE-wound RN consult. Vinnie wraps bilateral lower extremities. 11. BPH-continue Flomax regimen. DVT prophylaxis-Coumadin Discharge planning: SNF pending pre-CERT. This patient was seen by PRIMITIVO Smith under the supervision of Dr. Finch.
[2018-10-06] MEDS: Heparin Injection (Vial) 5,000 UNIT/ML VIAL 5000 UNIT SC (14:01)
--- NOTE | 2018-10-06 14:12 | TREXTCA.CO_ITS ---
- Diet 10/01/18 08:16 Diet: Cardiac: Carb-Controlled Is pt able to select menu?: Yes Diet Comments: fluid restriction 1500cc - Routine Orders/Code Status Enema Type: Fleetz Enema Frequency: Daily PRN Suppository Type: Dulcolax 10mg Suppository Frequency: Daily PRN O2 Liters per Minute: 2-4 O2 Frequency: PRN Keep PO Greater than or Equal to (%): 90 Routine Lab Work: - - CBC, BMP, INR Q Week. Code Status: Full Code - Wound(s) L calf Wound Type: Open Surgical Wound Dressing Change: Wet to Dry Dressing left inner thigh Wound Type: scabbed area from previous surgery left distal foot Wound Type: Neuropathic/Diabetic Foot Ulcer Dressing Change: betadine moistened gauze - Suggestions for Active Care Change Position every (hours): 2 Times a day to sit in chair: 3 - Therapies Physical Therapy: Eval and Treat Occupational Therapy: Eval and Treat - Problem/Diagnosis (1) Acute on chronic systolic (congestive) heart failure Status: Acute Current Visit: Yes (2) Atherosclerosis of [place] coronary artery of [place] heart without angina pectoris Status: Chronic Comment: PCI-EVAN-Mid LAD w/ 2.5 x 25 mm Promus and PCI-EVAN-D1 w/ 2.5 x 23 mm Promus 05/29/2009 Current Visit: No (3) Chronic atrial fibrillation Status: Chronic Current Visit: No (4) Chronic kidney disease, stage 3 Status: Chronic Current Visit: No (5) Essential (primary) hypertension Status: Chronic Current Visit: No (6) Hyperlipidemia Status: Chronic Current Visit: No (7) ICD (implantable cardioverter-defibrillator), biventricular, in situ Status: Chronic Current Visit: No - Allergies/Procedures Done in Hospital Allergies/Adverse Reactions: Allergies tramadol Allergy (Verified 09/30/18 12:13) Hives Penicillins Adverse Reaction (Verified 09/30/18 12:13) Nausea Procedures: 2-D Echocardiogram, Cardiac catheterization - Type of Care/Length of Stay Estimated LOS: Convalescent Care Less Than 30 days Type of Care Needed: Skilled Rehab Potential: Fair Prognosis: Fair - Additional Orders/Day of Discharge Additional Orders: Blood pressure chronically low. Hold BP regimen for SBP <90. Normal saline wet-to-dry dressing twice daily to left medial lower leg. Betadine moistened gauze dressing to the left wounds daily. Cover with dry dressings and wrapped with Kerlix followed by Vinnie wraps. H&P will serve as current which was dated: 09/30/18 Day of Discharge: 10/06/18 - Dietary and Speech Recommendations Dietitian Recommendations/Changes: Continue CHO controlled, cardiac, low sodium diet w/ fluid restriction as indicated. Continue 1 packet Tomás BID for wound healing. - Follow Up Care Primary Care Physician: Allen Motta MD [Primary Care Provider] - Please follow up with your Primary Care Physician in: 1 Week Please Follow Up With: Keven Willingham MD When: As scheduled, tomorrow 10/07/2017 Please Follow Up With: Clinic,Wound When: 1 Week
--- NOTE | 2018-10-06 14:16 | PCM.DC.SUM ---
<Judy Humphreys - Last Filed: 10/06/18 14:26> Discharge Date and Diagnosis Date of Admission: 09/30/18 Date of Discharge: 10/06/18 - Primary Discharge Diagnosis Active and Suspected Problems (Last Reviewed 09/30/18 @ 11:55 by Keven Willingham MD) 1. Acute hypoxic respiratory failure secondary to acute on chronic systolic CHF/ischemic cardiomyopathy 2. Hypotension 3. Atrial fibrillation status post ablation/status post ICD 4. Acute kidney injury on chronic kidney disease stage III 5. Normocytic anemia, iron deficiency anemia 6. Hypertension 7. Type 2 diabetes mellitus 8. Recent PAD status post bypass surgery with left lower extremity wound 9. CAD status post stents 10. Chronic venous stasis wounds/foot ulcerations LLE 11. 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 Bibasilar atelectasis and small bilateral effusions. Electronically Signed: Mann Prater, at 13:50 EDT , Service support , Consultations 09/30/18 19:20 Consult: Onc/Wound/cable way operator Routine Comment: Dr. Willingham- Cardiology Dr. Hernandez- Pulmonary Medicine Operations: None Procedures: Cardiac catheterization, Stress test Summary of Care Provided: The patient is a 57 year old M admitted 09/30/2017 due to shortness of breath. 1. Acute hypoxic respiratory failure secondary to acute on chronic systolic CHF/ischemic cardiomyopathy-Echocardiogram 09/07/2018 with EF 25%. BNP 446. Cardiology consulted during admission. Patient follows with Dr. Willingham. Heart catheterization attempted however unable to be completed due to severe PVD. IV dobutamine and IV Lasix drip discontinued 10/03/18. Continue Lasix, Entresto, Coreg, when BP is able to tolerate. Metolazone/spironolactone discontinued. Home Lasix regimen decreased to 60 mg twice daily. Hold blood pressure regimen at SNF for systolic blood pressure less than 90. Patient's oxygen currently stable on room air, weaned off of BiPAP and supplement oxygen. Patient has outpatient follow-up with Dr. Willingham tomorrow which she will continue. 2. Hypotension-improved. Blood pressure parameters as noted above. 3. Atrial fibrillation status post ablation/status post ICD- INR previously supratherapeutic and Coumadin held for cath. Resume Coumadin at discharge and trend INR. 4. Acute kidney injury on chronic kidney disease stage III-secondary to diuretic regimen. ADALBERTO resolved. 5. Normocytic anemia, iron deficiency anemia-continue iron supplementation. Trend CBC. 6. Hypertension-on carvedilol, Entresto regimen at home. Cardiology recommending discontinuing spironolactone going forward. 7. Type 2 diabetes dawclxre-Clsl-Lrdxu AC at bedtime with sliding scale insulin. 8. Recent PAD status post bypass surgery with left lower extremity wound-Continue aspirin, Plavix, statin. Follow-up with Dr. Bennett as scheduled. 9. CAD status post stents-continue aspirin, statin, Plavix, beta-ronn. 10. Chronic venous stasis wounds/foot ulcerations LLE-dressing changes per transfer orders. Follow-up with wound center in 1 week. 11. BPH-continue Flomax regimen. General: Alert, Oriented x3, Cooperative HEENT: Atraumatic, PERRLA, EOMI, Normocephalic Neck: Supple, No JVD, Negative Carotid Bruits Lungs: Clear to auscultation, Diminished Cardiovascular: Regular rate, Regular Rhythm, Normal S1, Normal S2, No murmurs Abdomen: Bowel Sounds Present, Soft, Non Tender, Non-Distended Extremities: No clubbing, No cyanosis, No edema, Capillary Refill Less than 3 Seconds Skin: - - Left medial lower leg wound from prior vascular intervention, left foot venous stasis ulcerations. Dressing clean dry and intact. Chronic venous stasis skin changes bilateral lower extremities. Musculoskeletal: No Tenderness to Palpation of Joints or Extremities Neurological: Cranial nerves II-XII grossly intact, Neuro grossly intact Psych/Mental Status: Normal Affect, Appropriate Patient seen and examined prior to discharge. Physical assessment as noted above. Patient is stable for discharge with follow up recommendations as noted above. This patient was seen by PRIMITIVO Smith under the supervision of Dr. Finch. - Physical Exam Vital Signs Temp Pulse Resp BP Pulse Ox 97.9 F 80 16 97/65 100 10/06/18 14:02 10/06/18 14:02 10/06/18 14:02 10/06/18 14:02 10/06/18 14:02 Oxygen Flow Rate (L/min) 24 Oxygen Delivery Method Room Air Weight: 202 lb 9.677 oz Body Mass Index (BMI) 39.1 Finger Stick Blood Glucose 87 Intake and Output for Last 24 Hours 10/04/18 10/05/18 10/06/18 23:59 23:59 23:59 Intake Total 580 / 580 1420 / 1420 50 / 50 Output Total 975 / 975 500 / 500 600 / 600 Balance -395 / -395 920 / 920 -550 / -550 Laboratory Tests Past 24 Hrs 10/06/18 10/06/18 10/06/18 05:00 05:00 05:00 WBC 4.0 L RBC 4.79 Hgb 11.9 L Hct 38.8 L MCV 81.0 MCH 24.8 L MCHC 30.7 L RDW 19.8 H RDW Differential 57.5 H Plt Count 175 MPV 10.0 Immature Gran % (Auto) 0.200 Neut % (Auto) 64.2 Lymph % (Auto) 21.9 [place] % (Auto) 10.2 H Eos % (Auto) 3.0 Baso % (Auto) 0.5 Absolute Neuts (auto) 2.6 Absolute Lymphs (auto) 0.88 Total Counted Not Reportable PT 16.8 H INR 1.4 APTT 33.2 Sodium 138 Potassium 4.5 Chloride 103 Carbon Dioxide 26.0 Anion Gap 9 BUN 52 H Creatinine 1.28 Estim Creat Clear Calc 56.72 Est GFR (MDRD) Af Amer 75 Est GFR (MDRD) Non-Af 62 BUN/Creatinine Ratio 40.6 H Glucose 148 H Calcium 8.7 POC Glucose 10/06/18 10/06/18 10/05/18 11:43 06:59 22:26 POC Glucose 154 H 161 H 179 H 10/05/18 16:49 POC Glucose 151 H Home Medications: Medications to take at Discharge Acetaminophen [Tylenol] 650 tab PO Q4H PRN PRN 09/30/18 [place]/Glut/Cahmb/Collag/Mv-Min [Tomás Packet] 1 each PO BID 09/30/18 Aspirin [Aspirin, Baby] 81 mg PO DAILY@0800 09/30/18 Atorvastatin Calcium [Lipitor] 40 mg PO QHS 09/30/18 Capsaicin 1 applic TP QHS 09/30/18 Carvedilol 3.125 tab PO BID 09/30/18 Clopidogrel Bisulfate [Plavix] 75 mg PO DAILY 09/30/18 Famotidine 40 mg PO DAILY 09/30/18 Ferrous Sulfate [Ferosul] 325 mg PO BID 09/30/18 Gabapentin [Neurontin] 100 mg PO TIDCM 09/30/18 Insulin Lispro [Humalog] 16 unit SQ TIDCM 09/30/18 Mineral Oil/Petrolatum,White [Eucerin] 1 applic TOPICAL BID PRN 09/30/18 Nitroglycerin [Nitrolingual [place]] 0.4 mg SUBLINGUAL PRN PRN 09/30/18 Sacubitril/Valsartan 24/26 mg [Entresto 24 mg-26 mg Tablet] 1 each PO BID 09/30/18 Tamsulosin HCl [Flomax] 0.4 mg PO QHS 09/30/18 Warfarin Sodium [Coumadin] 4 mg PO QHS 09/30/18 Furosemide [Lasix] 60 mg PO BID@1000,1800 tablet 10/06/18 Insulin Lispro [Humalog KwikPen] See Protocol SQ ACHS insuln.pen 10/06/18 Primary Care Physician: Allen Motta MD [Primary Care Provider] - Please follow up with your Primary Care Physician in: 1 Week Please Follow Up With: Keven Willingham MD When: As scheduled, tomorrow 10/07/2017 Please Follow Up With: Clinic,Wound When: 1 Week Disposition: Intermediate facility Minutes spent on discharge:: 35 Patient Condition:: Stable Medical Necessity - Tobacco Use Smoking Status: Former smoker Tobacco Use: Cigarettes Meaningful Use Info Meaningful Use Diagnoses (Choose all that apply): CHF - CHF LEONIDES/ARB ordered at discharge?: Yes Documented LVEF (%): 25 <Mark Finch - Last Filed: 10/06/18 14:50> Discharge Date and Diagnosis - Secondary Discharge Diagnosis Chronic Problems (Last Updated 10/06/18 @ 14:16 by Judy Humphreys NP-C) Chronic kidney disease, stage 3 (Chronic) Secondary 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 (Chronic) 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) Old anterolateral wall myocardial infarction (Chronic) Chronic atrial fibrillation (Chronic) Hyperlipidemia (Chronic) Essential (primary) hypertension (Chronic) ICD (implantable cardioverter-defibrillator), biventricular, in situ (Chronic 07/11/15) Atherosclerosis of [place] coronary artery of [place] heart without angina pectoris (Chronic) PCI-EVAN-Mid LAD w/ 2.5 x 25 mm Promus and PCI-EVAN-D1 w/ 2.5 x 23 mm Promus 05/29/2009 Ischemic cardiomyopathy (Chronic) Hospital Course and Treatment Imaging Results: 10/06/18 08:05 Nuclear Stress Test - Chemical [NM] Routine Consultations 09/30/18 19:20 Consult: Onc/Wound/cable way operator Routine Comment: Operations: None Procedures: Cardiac catheterization, Stress test Summary of Care Provided: Patient seen and examined independently. Data reviewed. I agree with the above note by the nurse practitioner. 1. acute HFrEF improved (weight 106.6 to 103.1) EF 25% from 09/07/18 Lasix 60mg BID cardiology following. carvedilol, spironolactone, entresto held due to hypotension C unsuccessful give PAD 2. hypotension: improved likely cardiogenic 3. Acute hypoxic respiratory failure POA, was 87% on 5Liters with labored breathing, temporarily requiring BiPAP. 2/2 HF improved now on room air 4. CKD3 resolved likely due to overdiuresis 5. pAfib carvedilol held due to hypotension, resume when safe resume warfarin 6. Coagulopathy no bleeding continue to hold coumadin for now. 7. VTE prophylaxis: heparin as INR is subtherapuetic [] - Physical Exam General: Alert, No apparent distress HEENT: Atraumatic, Normocephalic Oral: Moist Mucosa, No Gingival or Mucosal Lesions/ Ulcerations Neck: No Nodes, Thyroid Normal Size and Texture Lungs: Clear to auscultation, Normal air movement, No rhonchi, No wheeze Cardiovascular: Regular rate, Regular Rhythm, Normal S1, Normal S2, No murmurs Abdomen: Bowel Sounds Present, Soft, Non Tender, Non-Distended Extremities: No Calf Tenderness, Edema Vital Signs Temp Pulse Resp BP Pulse Ox 36.6 C 80 16 97/65 100 10/06/18 14:02 10/06/18 14:02 10/06/18 14:02 10/06/18 14:02 10/06/18 14:02 Oxygen Flow Rate (L/min) 24 Oxygen Delivery Method Room Air Weight: 91.9 kg Body Mass Index (BMI) 39.1 Finger Stick Blood Glucose 87 Intake and Output for Last 24 Hours 10/04/18 10/05/18 10/06/18 23:59 23:59 23:59 Intake Total 580 / 580 1420 / 1420 50 / 50 Output Total 975 / 975 500 / 500 600 / 600 Balance -395 / -395 920 / 920 -550 / -550 Laboratory Tests Past 24 Hrs 10/06/18 10/06/18 10/06/18 05:00 05:00 05:00 WBC 4.0 L RBC 4.79 Hgb 11.9 L Hct 38.8 L MCV 81.0 MCH 24.8 L MCHC 30.7 L RDW 19.8 H RDW Differential 57.5 H Plt Count 175 MPV 10.0 Immature Gran % (Auto) 0.200 Neut % (Auto) 64.2 Lymph % (Auto) 21.9 [place] % (Auto) 10.2 H Eos % (Auto) 3.0 Baso % (Auto) 0.5 Absolute Neuts (auto) 2.6 Absolute Lymphs (auto) 0.88 Total Counted Not Reportable PT 16.8 H INR 1.4 APTT 33.2 Sodium 138 Potassium 4.5 Chloride 103 Carbon Dioxide 26.0 Anion Gap 9 BUN 52 H Creatinine 1.28 Estim Creat Clear Calc 56.72 Est GFR (MDRD) Af Amer 75 Est GFR (MDRD) Non-Af 62 BUN/Creatinine Ratio 40.6 H Glucose 148 H Calcium 8.7 POC Glucose 10/06/18 10/06/18 10/05/18 11:43 06:59 22:26 POC Glucose 154 H 161 H 179 H 10/05/18 16:49 POC Glucose 151 H Discharge Diet: Low fat/ Low Cholesterol, 1800 Calorie Control Diet, 6 Cup Fluid Restriction, 2000 mg Sodium Diet Discharge Activity: Return to Normal Activity May resume sexual activity in: No Restrictions Weight Bearing Status: Weight bearing as tolerated Call your doctor if you observe: Fever of 101 or Higher, Shortness of breath Disposition: Intermediate facility Minutes spent on discharge:: 35 Patient Condition:: Stable Medical Necessity - Tobacco Use Smoking Status: Former smoker Tobacco Use: Cigarettes Meaningful Use Info Meaningful Use Diagnoses (Choose all that apply): CHF - CHF LEONIDES/ARB ordered at discharge?: Yes Documented LVEF (%): 25 Code Visit Inpatient E&M: 41229 Disch Hosp
--- NOTE | 2018-10-06 14:26 | DS.PCM_ITS ---
<Judy Humphreys - Last Filed: 10/06/18 14:26> Discharge Date and Diagnosis Date of Admission: 09/30/18 Date of Discharge: 10/06/18 - Primary Discharge Diagnosis Active and Suspected Problems (Last Reviewed 09/30/18 @ 11:55 by Keven Willingham MD) 1. Acute hypoxic respiratory failure secondary to acute on chronic systolic CHF/ischemic cardiomyopathy 2. Hypotension 3. Atrial fibrillation status post ablation/status post ICD 4. Acute kidney injury on chronic kidney disease stage III 5. Normocytic anemia, iron deficiency anemia 6. Hypertension 7. Type 2 diabetes mellitus 8. Recent PAD status post bypass surgery with left lower extremity wound 9. CAD status post stents 10. Chronic venous stasis wounds/foot ulcerations LLE 11. 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) Old anterolateral wall myocardial infarction (Chronic) Chronic atrial fibrillation (Chronic) Hyperlipidemia (Chronic) Essential (primary) hypertension (Chronic) ICD (implantable cardioverter-defibrillator), biventricular, in situ (Chronic 07/11/15) Atherosclerosis of [place] coronary artery of [place] heart without angina pectoris (Chronic) PCI-EVAN-Mid LAD w/ 2.5 x 25 mm Promus and PCI-EVAN-D1 w/ 2.5 x 23 mm Promus 05/29/2009 Ischemic cardiomyopathy (Chronic) Hospital Course and Treatment Imaging Results: Diagnostic Data Chest X-Ray 09/30/18 13:04 IMPRESSION: Findings in keeping with CHF. Bibasilar atelectasis and small bilateral effusions. Electronically Signed: Mann Prater, at 13:50 EDT , Service support , Consultations 09/30/18 19:20 Consult: Onc/Wound/glass robot operator Routine Comment: Dr. Willingham- Cardiology Dr. Hernandez- Pulmonary Medicine Operations: None Procedures: Cardiac catheterization, Stress test Summary of Care Provided: The patient is a 57 year old M admitted 09/30/2017 due to shortness of breath. 1. Acute hypoxic respiratory failure secondary to acute on chronic systolic CHF/ischemic cardiomyopathy-Echocardiogram 09/07/2018 with EF 25%. BNP 446. Cardiology consulted during admission. Patient follows with Dr. Willingham. Heart catheterization attempted however unable to be completed due to severe PVD. IV dobutamine and IV Lasix drip discontinued 10/03/18. Continue Lasix, Entresto, Coreg, when BP is able to tolerate. Metolazone/spironolactone discontinued. Home Lasix regimen decreased to 60 mg twice daily. Hold blood pressure regimen at SNF for systolic blood pressure less than 90. Patient's oxygen currently stable on room air, weaned off of BiPAP and supplement oxygen. Patient has outpatient follow-up with Dr. Willingham tomorrow which she will continue. 2. Hypotension-improved. Blood pressure parameters as noted above. 3. Atrial fibrillation status post ablation/status post ICD- INR previously supratherapeutic and Coumadin held for cath. Resume Coumadin at discharge and trend INR. 4. Acute kidney injury on chronic kidney disease stage III-secondary to diuretic regimen. ADALBERTO resolved. 5. Normocytic anemia, iron deficiency anemia-continue iron supplementation. Trend CBC. 6. Hypertension-on carvedilol, Entresto regimen at home. Cardiology recommending discontinuing spironolactone going forward. 7. Type 2 diabetes oxmdeojg-Kajw-Diffp AC at bedtime with sliding scale insulin. 8. Recent PAD status post bypass surgery with left lower extremity wound- Continue aspirin, Plavix, statin. Follow-up with Dr. Bennett as scheduled. 9. CAD status post stents-continue aspirin, statin, Plavix, beta-ronn. 10. Chronic venous stasis wounds/foot ulcerations LLE-dressing changes per transfer orders. Follow-up with wound center in 1 week. 11. BPH-continue Flomax regimen. General: Alert, Oriented x3, Cooperative HEENT: Atraumatic, PERRLA, EOMI, Normocephalic Neck: Supple, No JVD, Negative Carotid Bruits Lungs: Clear to auscultation, Diminished Cardiovascular: Regular rate, Regular Rhythm, Normal S1, Normal S2, No murmurs Abdomen: Bowel Sounds Present, Soft, Non Tender, Non-Distended Extremities: No clubbing, No cyanosis, No edema, Capillary Refill Less than 3 Seconds Skin: - - Left medial lower leg wound from prior vascular intervention, left foot venous stasis ulcerations. Dressing clean dry and intact. Chronic venous stasis skin changes bilateral lower extremities. Musculoskeletal: No Tenderness to Palpation of Joints or Extremities Neurological: Cranial nerves II-XII grossly intact, Neuro grossly intact Psych/Mental Status: Normal Affect, Appropriate Patient seen and examined prior to discharge. Physical assessment as noted above. Patient is stable for discharge with follow up recommendations as noted above. This patient was seen by PRIMITIVO Smith under the supervision of Dr. Finch. - Physical Exam Vital Signs Temp Pulse Resp BP Pulse Ox 97.9 F 80 16 97/65 100 10/06/18 14:02 10/06/18 14:02 10/06/18 14:02 10/06/18 14:02 10/06/18 14:02 Oxygen Flow Rate (L/min) 24 Oxygen Delivery Method Room Air Weight: 202 lb 9.677 oz Body Mass Index (BMI) 39.1 Finger Stick Blood Glucose 87 Intake and Output for Last 24 Hours 10/04/18 10/05/18 10/06/18 23:59 23:59 23:59 Intake Total 580 / 580 1420 / 1420 50 / 50 Output Total 975 / 975 500 / 500 600 / 600 Balance -395 / -395 920 / 920 -550 / -550 Laboratory Tests Past 24 Hrs 10/06/18 10/06/18 10/06/18 05:00 05:00 05:00 WBC 4.0 L RBC 4.79 Hgb 11.9 L Hct 38.8 L MCV 81.0 MCH 24.8 L MCHC 30.7 L RDW 19.8 H RDW Differential 57.5 H Plt Count 175 MPV 10.0 Immature Gran % (Auto) 0.200 Neut % (Auto) 64.2 Lymph % (Auto) 21.9 [place] % (Auto) 10.2 H Eos % (Auto) 3.0 Baso % (Auto) 0.5 Absolute Neuts (auto) 2.6 Absolute Lymphs (auto) 0.88 Total Counted Not Reportable PT 16.8 H INR 1.4 APTT 33.2 Sodium 138 Potassium 4.5 Chloride 103 Carbon Dioxide 26.0 Anion Gap 9 BUN 52 H Creatinine 1.28 Estim Creat Clear Calc 56.72 Est GFR (MDRD) Af Amer 75 Est GFR (MDRD) Non-Af 62 BUN/Creatinine Ratio 40.6 H Glucose 148 H Calcium 8.7 POC Glucose 10/06/18 10/06/18 10/05/18 11:43 06:59 22:26 POC Glucose 154 H 161 H 179 H 10/05/18 16:49 POC Glucose 151 H Home Medications: Medications to take at Discharge Acetaminophen [Tylenol] 650 tab PO Q4H PRN PRN 09/30/18 Argin/Glut/Cahmb/Collag/Mv-Min [Tomás Packet] 1 each PO BID 09/30/18 Aspirin [Aspirin, Baby] 81 mg PO DAILY@0800 09/30/18 Atorvastatin Calcium [Lipitor] 40 mg PO QHS 09/30/18 Capsaicin 1 applic TP QHS 09/30/18 Carvedilol 3.125 tab PO BID 09/30/18 Clopidogrel Bisulfate [Plavix] 75 mg PO DAILY 09/30/18 Famotidine 40 mg PO DAILY 09/30/18 Ferrous Sulfate [Ferosul] 325 mg PO BID 09/30/18 Gabapentin [Neurontin] 100 mg PO TIDCM 09/30/18 Insulin Lispro [Humalog] 16 unit SQ TIDCM 09/30/18 Mineral Oil/Petrolatum,White [Eucerin] 1 applic TOPICAL BID PRN 09/30/18 Nitroglycerin [Nitrolingual [place]] 0.4 mg SUBLINGUAL PRN PRN 09/30/18 Sacubitril/Valsartan 24/26 mg [Entresto 24 mg-26 mg Tablet] 1 each PO BID 09/30/18 Tamsulosin HCl [Flomax] 0.4 mg PO QHS 09/30/18 Warfarin Sodium [Coumadin] 4 mg PO QHS 09/30/18 Furosemide [Lasix] 60 mg PO BID@1000,1800 tablet 10/06/18 Insulin Lispro [Humalog KwikPen] See Protocol SQ ACHS insuln.pen 10/06/18 Primary Care Physician: Allen Motta MD [Primary Care Provider] - Please follow up with your Primary Care Physician in: 1 Week Please Follow Up With: Keven Willingham MD When: As scheduled, tomorrow 10/07/2017 Please Follow Up With: Clinic,Wound When: 1 Week Disposition: Group Home facility Minutes spent on discharge:: 35 Patient Condition:: Stable Medical Necessity - Tobacco Use Smoking Status: Former smoker Tobacco Use: Cigarettes Meaningful Use Info Meaningful Use Diagnoses (Choose all that apply): CHF - CHF LEONIDES/ARB ordered at discharge?: Yes Documented LVEF (%): 25 <Mark Finch - Last Filed: 10/06/18 14:50> Discharge Date and Diagnosis - Secondary Discharge Diagnosis Chronic Problems (Last Updated 10/06/18 @ 14:16 by Judy Humphreys NP-C) Chronic kidney disease, stage 3 (Chronic) Secondary 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 (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) 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) Old anterolateral wall myocardial infarction (Chronic) Chronic atrial fibrillation (Chronic) Hyperlipidemia (Chronic) Essential (primary) hypertension (Chronic) ICD (implantable cardioverter-defibrillator), biventricular, in situ (Chronic 07/11/15) Atherosclerosis of [place] coronary artery of [place] heart without angina pectoris (Chronic) PCI-EVAN-Mid LAD w/ 2.5 x 25 mm Promus and PCI-EVAN-D1 w/ 2.5 x 23 mm Promus 05/29/2009 Ischemic cardiomyopathy (Chronic) Hospital Course and Treatment Imaging Results: 10/06/18 08:05 Nuclear Stress Test - Chemical [NM] Routine Consultations 09/30/18 19:20 Consult: Onc/Wound/glass robot operator Routine Comment: Operations: None Procedures: Cardiac catheterization, Stress test Summary of Care Provided: Patient seen and examined independently. Data reviewed. I agree with the above note by the nurse practitioner. 1. acute HFrEF * improved (weight 106.6 to 103.1) * EF 25% from 09/07/18 * Lasix 60mg BID * cardiology following. * carvedilol, spironolactone, entresto held due to hypotension * [place] unsuccessful give PAD 2. hypotension: * improved * likely cardiogenic 3. Acute hypoxic respiratory failure * POA, was 87% on 5Liters with labored breathing, temporarily requiring BiPAP. * 2/2 HF * improved * now on room air 4. CKD3 * resolved * likely due to overdiuresis 5. pAfib * carvedilol held due to hypotension, resume when safe * resume warfarin 6. Coagulopathy * no bleeding * continue to hold coumadin for now. 7. VTE prophylaxis: heparin as INR is subtherapuetic [] - Physical Exam General: Alert, No apparent distress HEENT: Atraumatic, Normocephalic Oral: Moist Mucosa, No Gingival or Mucosal Lesions/ Ulcerations Neck: No Nodes, Thyroid Normal Size and Texture Lungs: Clear to auscultation, Normal air movement, No rhonchi, No wheeze Cardiovascular: Regular rate, Regular Rhythm, Normal S1, Normal S2, No murmurs Abdomen: Bowel Sounds Present, Soft, Non Tender, Non-Distended Extremities: No Calf Tenderness, Edema Vital Signs Temp Pulse Resp BP Pulse Ox 36.6 C 80 16 97/65 100 10/06/18 14:02 10/06/18 14:02 10/06/18 14:02 10/06/18 14:02 10/06/18 14:02 Oxygen Flow Rate (L/min) 24 Oxygen Delivery Method Room Air Weight: 91.9 kg Body Mass Index (BMI) 39.1 Finger Stick Blood Glucose 87 Intake and Output for Last 24 Hours 10/04/18 10/05/18 10/06/18 23:59 23:59 23:59 Intake Total 580 / 580 1420 / 1420 50 / 50 Output Total 975 / 975 500 / 500 600 / 600 Balance -395 / -395 920 / 920 -550 / -550 Laboratory Tests Past 24 Hrs 10/06/18 10/06/18 10/06/18 05:00 05:00 05:00 WBC 4.0 L RBC 4.79 Hgb 11.9 L Hct 38.8 L MCV 81.0 MCH 24.8 L MCHC 30.7 L RDW 19.8 H RDW Differential 57.5 H Plt Count 175 MPV 10.0 Immature Gran % (Auto) 0.200 Neut % (Auto) 64.2 Lymph % (Auto) 21.9 [place] % (Auto) 10.2 H Eos % (Auto) 3.0 Baso % (Auto) 0.5 Absolute Neuts (auto) 2.6 Absolute Lymphs (auto) 0.88 Total Counted Not Reportable PT 16.8 H INR 1.4 APTT 33.2 Sodium 138 Potassium 4.5 Chloride 103 Carbon Dioxide 26.0 Anion Gap 9 BUN 52 H Creatinine 1.28 Estim Creat Clear Calc 56.72 Est GFR (MDRD) Af Amer 75 Est GFR (MDRD) Non-Af 62 BUN/Creatinine Ratio 40.6 H Glucose 148 H Calcium 8.7 POC Glucose 10/06/18 10/06/18 10/05/18 11:43 06:59 22:26 POC Glucose 154 H 161 H 179 H 10/05/18 16:49 POC Glucose 151 H Discharge Diet: Low fat/ Low Cholesterol, 1800 Calorie Control Diet, 6 Cup Fluid Restriction, 2000 mg Sodium Diet Discharge Activity: Return to Normal Activity May resume sexual activity in: No Restrictions Weight Bearing Status: Weight bearing as tolerated Call your doctor if you observe: Fever of 101 or Higher, Shortness of breath Disposition: Group Home facility Minutes spent on discharge:: 35 Patient Condition:: Stable Medical Necessity - Tobacco Use Smoking Status: Former smoker Tobacco Use: Cigarettes Meaningful Use Info Meaningful Use Diagnoses (Choose all that apply): CHF - CHF LEONIDES/ARB ordered at discharge?: Yes Documented LVEF (%): 25 Code Visit Inpatient E&M: 72375 Disch Hosp
--- NOTE | 2018-10-06 15:02 | CASEMGMT ---
NATALY faxed orders to [facility]. NATALY called [facility] to set up transport as [facility] requires this. They were trying to arrange transport, but were having trouble. They will call the nurses station when they have transport set up. NATALY notified typing secretary and also told her their is a good chance they may not be able to get transport for today. NATALY also called [facility] and notified Basilia that patient may be coming back today depending on whether or not insurance can arrange transport. NATALY notified patient as well. NATALY faxed orders to [facility]. Plan: Return to [facility] pending insurance arranging transport. Magalys BLAIR WHEEL ASSEMBLER
--- NOTE | 2018-10-06 15:20 | CHAPLAIN ---
Type of Pastoral Visit ___ Initial Visit _x__ Follow-up Visit ___ On-call Visit ___ General Patient Visit ___ Spiritual Assessment ___ Family Conference ___ Bereavement ___ Rapid Response ___ Code Blue ___ Other (describe below) Pastoral Care Referral From _x__ Patient ___ Family ___ Nurse ___ Physician ___ Pricing Consultant ___ Real Estate Photographer ___ Other (describe below) Sacrament/Intervention _x__ Active listening ___ Anointing ___ Buddhist ___ Bereavement ___ Communion ___ Isabella exploration ___ ___ Life review ___ Prayer ___ Reconciliation ___ Sacrament of Sick ___ Supportive presence ___ Wedding ___ Other (describe below) Pastoral Comments
== END 2018-10-06 16:15 | disposition skilled nursing facility (03) | DRG 291 ==
LOC: ED 15:41 → ICU 16:14 → PCU 10-04 10:30
PROVIDERS: Family Medicine; Internal Medicine Cardiovascular Disease; Nurse Practitioner Family; Admitting Provider Student in an Organized Health Care Education/Training Program; Emergency Provider Emergency Medicine; Family Provider Family Medicine; PCP Family Medicine; Referring Provider Student in an Organized Health Care Education/Training Program
DX: I13.0 Hypertensive heart and chronic kidney disease with heart failure and stage 1 through stage 4 chronic kidney disease, or unspecified chronic kidney disease (principal); J96.01 Acute respiratory failure with hypoxia; I50.23 Acute on chronic systolic (congestive) heart failure; N17.9 Acute kidney failure, unspecified; L97.429 Non-pressure chronic ulcer of left heel and midfoot with unspecified severity; I25.10 Atherosclerotic heart disease of native coronary artery without angina pectoris; I48.0 Paroxysmal atrial fibrillation; I25.5 Ischemic cardiomyopathy; E78.5 Hyperlipidemia, unspecified; D50.9 Iron deficiency anemia, unspecified; N40.0 Benign prostatic hyperplasia without lower urinary tract symptoms; N18.3 Chronic kidney disease, stage 3 (moderate); E11.22 Type 2 diabetes mellitus with diabetic chronic kidney disease; Z79.01 Long term (current) use of anticoagulants; Z95.810 Presence of automatic (implantable) cardiac defibrillator; I25.2 Old myocardial infarction; Z95.5 Presence of coronary angioplasty implant and graft; I87.2 Venous insufficiency (chronic) (peripheral); E11.51 Type 2 diabetes mellitus with diabetic peripheral angiopathy without gangrene; F17.210 Nicotine dependence, cigarettes, uncomplicated; G47.33 Obstructive sleep apnea (adult) (pediatric); I95.9 Hypotension, unspecified; Z53.8 Procedure and treatment not carried out for other reasons; Z95.828 Presence of other vascular implants and grafts; Z79.4 Long term (current) use of insulin
CPT/HCPCS: 36415; 36600; 71046; 78452; 80048; 81001; 82803; 82962; 83735; 83880; 84484; 85025; 85027; 85610; 85730; 93005; 93017; 93454; 94002; 94003; 94640; 94762; 97110; 97163; 97166; 97530; 99152; 99153; 99285; A9500; A4216; C1769; C1894; J1940; J2405; J2785; Q9967

== ENCOUNTER → 2018-11-15 16:13 | Outpatient (CLI) | payer MEDICARE, SELFPAY ==
[2018-09-30 16:48] VITALS: BMI 39.1
[2018-11-15 17:01] LABS: Anion Gap 6 (5-15); BUN 69 mg/dL (7-18); BUN/Creat Ratio 37.7 RATIO (10-20); Calcium,Total 8.5 mg/dL (8.5-10.1); Chloride 102 mmol/L (98-107); Creatinine, Serum 1.83 mg/dL (0.70-1.30); EST Glomerular Filtration Rate 41 mL/min (>60); Est Glom Filt Rate - Afr Amer 50 mL/min (>60); Glucose 188 mg/dL (74-106); Potassium 4.3 mmol/L (3.5-5.1); Sodium Level 138 mmol/L (136-145)
[2018-11-15 17:07] LABS: Absolute Lymphocyte Count 0.67 X10^3/ul (0.83-4.51); Absolute Neutrophil Count 3.6 X10^3/uL (2.0-7.7); Basophil# 0.01 X10^3/uL; Basophil% 0.2 % (0-1); Eosinophil# 0.03 X10^3/uL; Eosinophils% 0.6 % (0-5); Hematocrit 40.1 % (40-54); Hemoglobin 12.5 g/dl (13.0-16.5); Lymphocyte # 0.67 X10^3/ul (4.0); Mean Corp Hgb Conc 31.2 g/gl (32-36); Mean Corpuscular Hgb 26.2 pg (27.0-32.0); Mean Corpuscular Volume 83.9 fL (80-94); Mean Platelet Vol. 11.8 fl (6.2-12.0); Monocyte# 0.51 X10^3/uL; Monocyte% 10.6 % (0-10); Neutrophil # 3.57 X10^3/uL (2.7-7.7); Neutrophil % 74.4 % (47-70); POSITIVE COUNT NO; POSITIVE DIFFERENTIAL NO; Platelet Count 132 K/mm3 (150-450); RBC Distribution Width SD 66.3 fl (35.1-43.9); Red Blood Count 4.78 M/mm3 (4.6-6.2); White Blood Count 4.8 K/mm3 (4.4-11.0)
[2018-11-15 17:10] LABS: Prothrombin Time (Protime)PT. 31.1 SECONDS (11.7-14.9)
[2018-11-15 17:36] LABS: Anisocytosis 1+; Differential Comment SCANNED; Differential Indicated SCAN CRITERIA MET; POSITIVE MORPHOLOGY YES
== END ==
PROVIDERS: Family Provider Family Medicine; PCP Family Medicine; Referring Provider Family Medicine; Visit Provider Family Medicine
DX: D64.9 Anemia, unspecified (principal); I48.91 Unspecified atrial fibrillation; N28.9 Disorder of kidney and ureter, unspecified
CPT/HCPCS: 80048; 85025; 85610

== ENCOUNTER → 2019-01-13 11:13 | Outpatient (CLI) | payer MEDICARE, SELFPAY ==
[2018-09-30 16:48] VITALS: BMI 39.1
[2019-01-13 12:59] LABS: Microalbumin,Random Urine 19.5 mg/L (NO RANGE EST.); Microalbumin:Creatinine Ratio 29.4 mg/g CRE (<30 mg/g CRE)
== END ==
PROVIDERS: Family Provider Family Medicine; PCP Family Medicine; Visit Provider Internal Medicine Nephrology
DX: E11.22 Type 2 diabetes mellitus with diabetic chronic kidney disease (principal)
CPT/HCPCS: 82043; 82570

== ENCOUNTER 2019-02-03 11:16 | Outpatient (RCR) | payer MEDICARE, SELFPAY ==
[2019-02-03 10:27] VITALS: BMI 32.5
[2019-02-03 11:45] LABS: International Normalized Ratio 1.3; Prothrombin Time (Protime)PT. 15.5 SECONDS (11.7-14.9)
== END 2019-02-03 13:00 | disposition home or self-care (01) ==
LOC: LAB 11:16
PROVIDERS: Family Provider Family Medicine; PCP Family Medicine; Referring Provider Internal Medicine Cardiovascular Disease; Visit Provider Internal Medicine Cardiovascular Disease
DX: I51.3 Intracardiac thrombosis, not elsewhere classified (principal); I48.91 Unspecified atrial fibrillation; I25.5 Ischemic cardiomyopathy; Z79.01 Long term (current) use of anticoagulants
CPT/HCPCS: 36415; 85610

== ENCOUNTER 2019-06-22 09:53 | Outpatient (RCR) | payer MEDICARE, SELFPAY ==
[2019-06-01 13:56] LABS: International Normalized Ratio 3.8
[2019-06-13 10:37] LABS: Prothrombin Time (Protime)PT. 37.1 SECONDS (11.7-14.9)
[2019-06-13 10:54] LABS: International Normalized Ratio 3.7
[2019-06-22 10:32] LABS: Prothrombin Time (Protime)PT. 31.6 SECONDS (11.7-14.9)
== END 2019-06-22 18:00 | disposition home or self-care (01) ==
LOC: LAB 09:53
PROVIDERS: Family Provider Family Medicine; PCP Family Medicine; Referring Provider Internal Medicine Cardiovascular Disease; Visit Provider Internal Medicine Cardiovascular Disease
DX: I51.3 Intracardiac thrombosis, not elsewhere classified (principal); I48.91 Unspecified atrial fibrillation; I25.5 Ischemic cardiomyopathy; Z79.01 Long term (current) use of anticoagulants
CPT/HCPCS: 36415; 85610

== ENCOUNTER 2019-07-19 09:11 | Outpatient (RCR) | payer MEDICARE, MEDICAID, SELFPAY ==
[2019-07-19 10:22] LABS: International Normalized Ratio 1.4; Prothrombin Time (Protime)PT. 17.4 SECONDS (11.7-14.9)
== END 2019-07-19 18:00 | disposition home or self-care (01) ==
LOC: LAB 09:11
PROVIDERS: Family Provider Family Medicine; PCP Family Medicine; Referring Provider Internal Medicine Cardiovascular Disease; Visit Provider Internal Medicine Cardiovascular Disease
DX: I48.20 Chronic atrial fibrillation, unspecified (principal); Z79.01 Long term (current) use of anticoagulants
CPT/HCPCS: 36415; 85610

== ENCOUNTER 2019-08-10 08:49 | Inpatient (IN) | payer MEDICARE, MEDICAID, SELFPAY ==
[2019-08-10] VITALS (25 sets, daily range): BP systolic 66–114; BP diastolic 45–90; PULSE 79–92; RESP 15–25; TEMP 37.3–39.2; O2SAT 96–100; BMI 34.7; BMI 34.0; BMI 34.1
--- NOTE | 2019-08-10 09:11 | ED.VISSUMM ---
- ER Visit Summary Date of Service: 08/10/19 Chief Complaint: [Fever] History of Present Illness: The patient is a 58 M [presents the emergency department via EMS this morning with symptoms of I have symptoms of the coronavirus. Patient states that he started with fever this morning as well as a cough that when it is severe can cause nausea. He denies any vomiting. He describes some abdominal cramping. He denies any diarrhea. He denies any exposures to known coronavirus patients. He denies recent travel. Patient with history of hypertension, high cholesterol, coronary artery disease, chronic kidney disease, and history of A. fib. Patient does describe chills and sweats as well as some body aches. Patient did have a headache that is now mostly resolved. Patient states he took aspirin earlier this morning for his fever.] Physical Examination: [HEENT-PERRLA, EOMI. Cranial nerves II through XII grossly intact. TMs clear. Mucous membranes moist. No adenopathy. Cardiovascular-regular rate and rhythm without murmur or ectopy Lungs-clear to auscultation, chest wall stable without crepitus or subcu emphysema Abdomen-normoactive bowel sounds, soft, nontender, no rebound or rigidity, no peritoneal signs. Extremities-intact ?4, normal range of motion, normal pulses, atraumatic] Test Results: [CBC with differential obtained showing of 8.7, hemoglobin 16, hematocrit 50, platelets 90. Chemistries unremarkable. BUN was 37 creatinine 1.75. INR was 1.7. LFT showed a chronically elevated total bilirubin of 2.7 as well as an alk phos of 349. ALT was 25 and AST was 34. Lactate was elevated 2.9. Influenza screen was negative. Chest x-ray showed CHF otherwise nothing acute.] Emergency Department Course and Treatment: [She had blood cultures ordered. Patient started empirically on Levaquin. Patient received Tylenol 1 g p.o. Patient received normal saline at 150 cc an hour. Because of history of CHF and evidence of CHF on chest x-ray patient was not given a fluid bolus. Patient case was discussed with hospitalist who will evaluate patient for admission. Patient also discussed with infectious disease and respiratory panel was ordered.] Treatment Plan: [Admit to ICU. Patient will require testing for respiratory viruses and if the respiratory panel is negative may require further testing for COVID 19] Disposition: [Admit] Impression: [URI Sepsis Weakness] This note was generated with directworx dictation software. It may contain incorrect words, spelling, and punctuation that were not noted in review of the chart prior to signing ED Disposition - Plan for ED Patient: Referrals: Allen Motta MD [Primary Care Provider] -
[2019-08-10 09:29] LABS: Absolute Lymphocyte Count 0.35 X10^3/uL (0.83-4.51); Absolute Neutrophil Count 7.9 X10^3/uL (2.0-7.7); Basophil# 0.02 X10^3/uL; Basophil% 0.2 % (0-1); Eosinophil# 0.03 X10^3/uL; Eosinophils% 0.3 % (0-5); Hemoglobin 15.7 g/dL (13.0-16.5); Lymphocyte # 0.35 X10^3/ul (4.0); Mean Corp Hgb Conc 31.4 g/dL (32-36); Mean Corpuscular Hgb 29.9 pg (27.0-32.0); Mean Corpuscular Volume 95.2 fL (80-94); Mean Platelet Vol. 11.3 fl (6.2-12.0); Monocyte# 0.36 X10^3/uL; Monocyte% 4.1 % (0-10); NRBC Flagged by Analyzer 0 % (0-5); Neutrophil # 7.92 X10^3/uL (2.7-7.7); Neutrophil % 91.1 % (47-70); POSITIVE COUNT YES; POSITIVE DIFFERENTIAL YES; Platelet Count 90 K/mm3 (150-450); RBC Distribution Width CV 15.9 % (11.6-14.6); RBC Distribution Width SD 56.4 fl (35.1-43.9); Red Blood Count 5.25 M/mm3 (4.6-6.2); White Blood Count 8.7 K/mm3 (4.4-11.0)
--- NOTE | 2019-08-10 09:30 | RAD_ITS ---
STUDY: X-RAY CHEST REASON FOR EXAM: Male, 58 years old. COUGH, FEVER, SOB; -- AFIB,CHF, PACER/DEFIB; -- H/O TN X 2 TECHNIQUE: Single AP portable view of the chest. COMPARISON: Comparison is made with prior examination dated September 30, 2018. FINDINGS: EKG electrodes are seen. There is evidence of a right-sided dual-chamber pacemaker. There is evidence of vascular congestion and mild degree of CHF. There is no demonstrated pleural abnormality. There is borderline cardiomegaly. Normal mediastinum and katrina. Normal visualized pulmonary arteries. There is atherosclerotic calcification of the aortic arch with tortuosity. Normal visualized thoracic spine. There is degenerative osteoarthritis of the bilateral shoulders. There is no demonstrated abnormality of the visualized soft tissue structures of the upper abdomen. RAD/Chest 1 View (Portable) IMPRESSION: Findings in keeping with CHF. Electronically Signed: Mann Prater, at 9:48 EDT , Service support ,
[2019-08-10 09:34] LABS: Differential Indicated SCAN CRITERIA MET
[2019-08-10 09:48] LABS: Lactic Acid 2.9 mmol/L (0.4-1.9)
[2019-08-10 09:54] LABS: Platelet Estimate SLT DEC (ADEQ); Red Cell Morphology NORM C+C NORMAL (NORM C&C)
[2019-08-10 10:07] LABS: International Normalized Ratio 1.7; Prothrombin Time (Protime)PT. 19.9 SECONDS (11.7-14.9)
[2019-08-10 10:08] LABS: AST(SGOT) 34 U/L (15-37); Alanine Aminotransfer ALT/SGPT 25 U/L (16-61); Albumin, Serum 3.8 g/dL (3.2-5.0); Alkaline Phosphatase 349 U/L (45-117); Anion Gap 8 (5-15); BUN 37 mg/dL (7-18); BUN/Creat Ratio 21.1 RATIO (10-20); Calcium,Total 8.8 mg/dL (8.5-10.1); Chloride 110 mmol/L (98-107); Creatinine, Serum 1.75 mg/dL (0.70-1.30); EST Glomerular Filtration Rate 43 mL/min (>60); Est Glom Filt Rate - Afr Amer 52 mL/min (>60); Estimated Creatinine Clearance 39.47 ml/min; Globulin 3.9 g/dL (2.2-4.2); Glucose 129 mg/dL (74-106); Potassium 4.8 mmol/L (3.5-5.1); Protein, Total 7.7 g/dL (6.4-8.2); Sodium Level 140 mmol/L (136-145)
[2019-08-10] MEDS: 0.9% Normal Saline 1,000 ML 150 ML IV (10:10)
[2019-08-10] MEDS: Acetaminophen 500 MG Tablet 1000 MG PO (10:10)
--- NOTE | 2019-08-10 10:34 | PCM.HP.STD ---
Problem List (1) Presence of biventricular implantable cardioverter-defibrillator (ICD) Status: Chronic (2) Chronic kidney disease, stage 3 Status: Chronic (3) Secondary 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 Status: Chronic (4) Chronic atrial fibrillation Status: Chronic (5) Acute on chronic systolic (congestive) heart failure Status: Chronic (6) Hyperlipidemia Status: Chronic Qualifiers: Hyperlipidemia type: unspecified Qualified Code(s): E78.5 - Hyperlipidemia, unspecified (7) Essential (primary) hypertension Status: Chronic (8) History of coronary artery stent placement Status: Resolved Comment: PCI-EVAN-Mid LAD w/ 2.5 x 25 mm Promus and PCI-EVAN-D1 w/ 2.5 x 23 mm Promus 05/29/2009 History of Present Illness Date of Admission: 08/10/19 Chief Complaint: Fever, chills, SOB - 1 week The patient is a 58 year old M with a history of CAD status post stents, ischemic cardiomyopathy, previous EF of 25% in 2019, status post AICD, type II DM, hypertension, PAD status post angioplasty comes in with complaints of shortness of breath, fever, chills that started 1 week ago. This is associated with running nose, cough. This got progressively worse with him not able to move or perform his activities of daily living. He had diarrhea that started a week ago and ended yesterday. Patient lives alone and denies any sick contacts or travel outside the state or country. He denied any chest discomfort, palpitations. Vitals in the ED showed temperature of 101.3F, heart rate 80, blood pressure 114/90, respiratory rate 25, SPO2 98% on room air. WBC 8.7, Hb 15.7, Plt 90, INR 1.7, Na 140, K 4.8. Cl 110, Co2 22, BUN 37, Cr 1.75, Lactic acid 2.9 WBC 3.7, AST 34, ALT 3025, ALP 349, BNP of 605. Admitting chest x-ray shows vascular congestion, cardiomegaly. Admitting EKG shows Past Medical History Past Medical History (Chronic Problems): Chronic Problems (Last Reviewed 02/03/19 @ 10:[address] 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 Keven Willingham MD) Chronic kidney disease, stage 3 (Chronic) N18.3 Secondary 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 (Chronic) I27.21 Old anterolateral wall myocardial infarction (Chronic) I25.2 Chronic atrial fibrillation (Chronic) I48.2 Acute on chronic systolic (congestive) heart failure (Chronic) I50.23 Hyperlipidemia (Chronic) E78.5 Essential (primary) hypertension (Chronic) I10 Atherosclerosis of [place] coronary artery of [place] heart without angina pectoris (Chronic) I25.10 PCI-EVAN-Mid LAD w/ 2.5 x 25 mm Promus and PCI-EVAN-D1 w/ 2.5 x 23 mm Promus 05/29/2009 Ischemic cardiomyopathy (Chronic) I25.5 Non-healing ulcer of lower extremity L97.909 BPH (benign prostatic hyperplasia) N40.0 COPD (chronic obstructive pulmonary disease) J44.9 GERD (gastroesophageal reflux disease) K21.9 LV (left ventricular) mural thrombus I51.3 Obesity E66.9 Obstructive sleep apnea G47.33 Peripheral vascular occlusive disease I73.9 Type 2 diabetes mellitus E11.9 Pleural effusion, left (Resolved) J90 Allergies tramadol Allergy (Verified 08/10/19 08:49) Hives Penicillins Adverse Reaction (Verified 08/10/19 08:49) Nausea Home Medications: Ambulatory Orders Medication Instructions Recorded Acetaminophen [Tylenol] 650 tab PO Q4H PRN PRN 09/30/18 Argin/Glut/Cahmb/Collag/Mv-Min 1 ea PO BID 09/30/18 [Tomás Packet] Atorvastatin Calcium [Lipitor] 40 mg PO QHS 09/30/18 Capsaicin 1 applic TP QHS 09/30/18 Ferrous Sulfate [Ferosul] 325 mg PO BID 09/30/18 Gabapentin [Neurontin] 100 mg PO TIDCM 09/30/18 Insulin Lispro [Humalog] 16 unit SQ TIDCM 09/30/18 Mineral Oil/Petrolatum,White 1 applic TOPICAL BID PRN 09/30/18 [Eucerin] Sacubitril/Valsartan 24/26 mg 1 ea PO BID 09/30/18 [Entresto 24 mg-26 mg Tablet] Tamsulosin HCl [Flomax] 0.4 mg PO QHS 09/30/18 Insulin Lispro [Humalog KwikPen] See Protocol SQ ACHS insuln.pen 10/06/18 nitroglycerin 0.4 mg sublingual See Rx Instructions .ROUTE 11/10/18 tablet .COMPLEX #25 each aspirin 81 mg chewable tablet 81 mg PO DAILY@0800 #90 tab 04/13/19 famotidine 40 mg tablet 40 mg PO DAILY #90 tab 06/07/19 warfarin 4 mg tablet 4 mg PO DAILY #30 tab 06/13/19 furosemide 20 mg tablet 20 mg PO DAILY tab 06/22/19 furosemide 40 mg tablet 40 mg PO DAILY tab 06/22/19 glipizide 2.5 mg tablet, extended 2.5 mg PO BID 06/22/19 release 24 hr carvedilol 3.125 mg tablet 3.125 mg PO BID #60 tab 07/05/19 Surgical History: Surgical History (Last Reviewed 02/03/19 @ 10:[address] Keven Willingham MD) Presence of biventricular implantable cardioverter-defibrillator (ICD) (Chronic) Onset Date: 07/11/15 Z95.810 History of coronary artery stent placement (Resolved) Onset Date: 05/29/09 Z95.5 PCI-EVAN-Mid LAD w/ 2.5 x 25 mm Promus and PCI-EVAN-D1 w/ 2.5 x 23 mm Promus 05/29/2009 History of lpwhq-gmwjl-qjiizkp bypass Z95.828 History of cardiac pacemaker Z95.0 History of cholecystectomy Z98.890, Z90.49 Hx of atrioventricular node ablation Onset Date: 07/11/15 Z98.890 Surgical History: angioplasty, cholecystectomy, pacemaker implantation, - Psychiatric History: No pertinent psych hx Lives: Alone Smoking Status: Former smoker Tobacco Use: Non-smoker Alcohol: None Drugs: None - *Family History Paternal Family History: Family History (Last Reviewed 02/03/19 @ 10:[address] Keven Willingham MD) Father Hypertension CAD (coronary artery disease) Sister Cancer History Items: Heart Disease - CAD; at approximately 45 years of age Maternal Family History: Family History (Last Reviewed 02/03/19 @ 10:[address] Keven Willingham MD) Father Hypertension CAD (coronary artery disease) Sister Cancer History Items: Cancer - lung cancer Review of Systems Constitutional: Reports: Anorexia, Chills, Fever, Malaise, Weakness, Fatigue. Denies: Night Sweats, Weight Change Eyes: Denies: Blurred vision, Cataracts, Conjunctivae Inflammation, Pain, Redness, Vision Change HEENT: Denies: Difficulty Hearing, Difficulty Swallowing, Head Aches, Hearing Changes, Sinus Congestion, Sinus Drainage Cardiovascular: Denies: Chest Pain, Claudication, Orthopnea, Palpitations Respiratory: Denies: Cough, Shortness of breath at rest, Shortness of breath upon exertion, Sputum production Gastrointestinal: Denies: Abdominal Pain, Constipation, Hematemesis, Hematochezia, Nausea, Vomiting Genitourinary: Denies: Dysuria, Frequency Musculoskeletal: Denies: Joint Pain, Joint stiffness, Joint swelling, Joint Tenderness Skin: Denies: Rash, Wounds Neurological: Denies: Numbness, Tingling, Focal weakness Psychiatric: Denies: Anxiety, Depression, Homicidal Ideations, Suicidal Ideations Hematologic/ Lymphatic: Denies: Easy Bruising, Easy Bleeding VTE Information - Inpt Only VTE Present on Admission: No VTE Pharm Prophylaxis ordered?: Yes - Physical Exam Vitals/I&O's: Vital Signs Temp Pulse Resp BP Pulse Ox 101.3 F H 80 22 H 106/67 98 08/10/19 10:11 08/10/19 10:11 08/10/19 10:11 08/10/19 10:11 08/10/19 10:11 Oxygen Flow Rate (L/min) 2 Oxygen Delivery Method Nasal Cannula Weight: 91.8 kg Body Mass Index (BMI) 34.7 Finger Stick Blood Glucose 87 General: Alert, Oriented x3, Cooperative, - - looks unwell HEENT: Atraumatic, PERRLA, EOMI, Normocephalic Oral: Moist Mucosa Neck: Supple Lungs: Normal air movement, Diminished Cardiovascular: Regular rate, Regular Rhythm, Normal S1, Normal S2, No murmurs Abdomen: Bowel Sounds Present, Soft, Non Tender, Non-Distended, No Hepato-splenomegaly Extremities: Edema - +1 bilateral, lower legs, erythema of left leg, up to the thigh, left plantar wound/ulcer, no erythema or discharge Skin: No rashes, No breakdown Musculoskeletal: No Tenderness to Palpation of Joints or Extremities Neurological: Cranial nerves II-XII grossly intact Psych/Mental Status: Normal Affect, Appropriate Microbiology Past 72 Hours 08/10/19 08:40 Mucosa - Nose Influenza Types A,B Direct FA (RAUL) - Final Laboratory Results 08/10/19 09:10: WBC 8.7, RBC 5.25, Hgb 15.7, Hct 50.0, MCV 95.2 H, MCH 29.9, MCHC 31.4 L, RDW Std Deviation 56.4 H, RDW Coeff of [place] 15.9 H, Plt Count 90 L, MPV 11.3, Immature Gran % (Auto) 0.300, Neut % (Auto) 91.1 H, Lymph % (Auto) 4.0 L, [place] % (Auto) 4.1, Eos % (Auto) 0.3, Baso % (Auto) 0.2, Absolute Neuts (auto) 7.9 H, Absolute Lymphs (auto) 0.35 L, Nucleated RBC % 0, Differential Comment , Platelet Estimate SLT DEC, RBC Morphology NORM C+C 08/10/19 09:10: PT Cancelled, INR Cancelled 08/10/19 09:10: Sodium Cancelled, Potassium Cancelled, Chloride Cancelled, Carbon Dioxide Cancelled, Anion Gap Cancelled, BUN Cancelled, Creatinine Cancelled, Estim Creat Clear Calc Cancelled, Est GFR (MDRD) Af Amer Cancelled, Est GFR (MDRD) Non-Af Cancelled, BUN/Creatinine Ratio Cancelled, Glucose Cancelled, Calcium Cancelled, Total Bilirubin Cancelled, AST Cancelled, ALT Cancelled, Alkaline Phosphatase Cancelled, Total Protein Cancelled, Albumin Cancelled, Globulin Cancelled, Albumin/Globulin Ratio Cancelled 08/10/19 09:10: Lactic Acid 2.9 H* 08/10/19 09:10: B-Natriuretic Peptide Pending 08/10/19 09:40: PT 19.9 H, INR 1.7 08/10/19 09:40: Sodium 140, Potassium 4.8, Chloride 110 H, Carbon Dioxide 22.0, Anion Gap 8, BUN 37 H, Creatinine 1.75 H, Estim Creat Clear Calc 39.47, Est GFR (MDRD) Af Amer 52 L, Est GFR (MDRD) Non-Af 43 L, BUN/Creatinine Ratio 21.1 H, Glucose 129 H, Calcium 8.8, Total Bilirubin 2.70 H, AST 34, ALT 25, Alkaline Phosphatase 349 H, Total Protein 7.7, Albumin 3.8, Globulin 3.9, Albumin/Globulin Ratio 1.0 Current Medications Sodium Chloride () 1,000 mls @ 150 mls/hr IV .[id number] MARISEL Last Admin: 08/10/19 10:10 Dose: 150 mls/hr Documented by: Levofloxacin (Levaquin Iv) 750 mg in 150 mls @ 100 mls/hr IV X1 ONE Stop: 08/10/19 11:50 Assessment/Plan All Active Problems (Last Reviewed 02/03/19 @ 10:[address] Keven Willingham MD) History of coronary artery stent placement (Resolved 05/29/09) Altered mental status (Resolved) Pleural effusion, left (Resolved) Pneumonia (Resolved) 58 year old M with a history of CAD status post stents, ischemic cardiomyopathy, previous EF of 25% in 2019, status post AICD, type II DM, hypertension, PAD status post angioplasty comes in with complaints of shortness of breath, fever, chills that started 1 week ago. 1. Severe sepsis secondary to left lower leg cellulitis/pneumonia, Patient is tachypneic, febrile, source of infection being above, admitting lactic acid is 2.9 Started on IV Levaquin for penicillin allergy Discussed with patient, patient has abdominal discomfort with penicillin Would add Levaquin, blood cultures are pending, will taper antibiotics from tomorrow IV fluids, repeat lactic acid per protocol 2. Pneumonia/upper respiratory infection, influenza negative We will continue on IV antibiotics as above, respiratory panel is pending, Follow-up on blood cultures 3. Acute on chronic systolic CHF, reveals EF of 25%, status post AICD Admitting BNPep is 605 At the moment, will give IV fluids, monitor vitals closely, would consider resuming Lasix from tomorrow when severe sepsis has improved. 4. Left lower leg cellulitis with left plantar diabetic ulcer, acute source of infection Dry wound dressing, wound RN consult 5. Type II DM, will start on blood glucose checks with ISS 6. Chronci Atrial fibrillation, not in RVR now, will continue home meds 7. CKD stage 3, Cr is at her baseline, will continue to monitor 8. DVT PPx- Heparin SC Inpatient E&M: 08622 Init Hosp L3
[2019-08-10] MEDS: levoFLOXacin IV 750 MG/150 ML BAG 100 MG IV (10:39)
[2019-08-10 10:40] LABS: BNP,B-Type NATRIURETIC PEPTIDE 605.5 pg/mL (0-100)
--- NOTE | 2019-08-10 10:41 | NURSING ---
ICU PAINTSIL FEVER, URI, SEPSIS
--- NOTE | 2019-08-10 10:44 | NURSING ---
CV ICU 202
[2019-08-10] MEDS: 0.9% Normal Saline 1,000 ML 999 ML IV (11:40)
--- NOTE | 2019-08-10 13:05 | VDLE_ITS ---
Reason For Study: Swelling Procedure LEFT Exam performed portable in ICU/CCU. GSV is normal. A preliminary report was called and/or faxed CFV is compressible, spontaneous, competent, to ICU. and demonstrates pulsatile venous flow. FV is compressible, spontaneous, competent and demonstrates pulsatile venous flow. POP V is compressible, spontaneous, competent and demonstrates pulsatile venous flow. T/P Trunk is compressible. PTV is compressible. LT PerV is compressible. Interpretation Summary There is no evidence of left lower extremity deep vein thrombosis. Left great saphenous vein appears patent and compressible segmentally. Pulsitile venous flow noted consistent with proximal venous hypertension--clinical correlation would be appropriate. Ordering Physician: Maricruz Lee Referring Physician: Allen Motta Performed By: Rhona Rosenthal RVT
[2019-08-10 13:20] LABS: Reflex Lactate? Y
--- NOTE | 2019-08-10 13:27 | ECHOCS_ITS ---
Reason For Study: DYSPNEA Procedure This was a 2D Doppler, Color Flow transthoracic echocardiogram. The study was technically difficult. Contrast injection was performed. Exam performed portable in ICU/CCU. Left Ventricle Severely dilated left ventricle. The estimated ejection fraction is 10-15 %. Paced septal motion. There is severe global hypokinesis of the left ventricle. Right Ventricle Moderately dilated right ventricle. ICD or pacer leads identified within the right ventricle. Mild to moderate global right ventricular systolic dysfunction. Atria The left atrium is severely enlarged. The right atrium is severely enlarged. ICD or pacer leads identified within the right atrium. Normal atrial septum. Mitral Valve Mild diffuse mitral valve thickening. Moderate mitral annular calcification extending into the posterior leaflet. Mild (1+) mitral valve insufficiency. Tricuspid Valve Normal tricuspid valve. Moderate (2+) tricuspid valve insufficiency. Right ventricular systolic pressure estimated to be 59 mmHg. Moderate pulmonary hypertension. Aortic Valve Trisinus/trileaflet aortic valve. Mild diffuse aortic valve thickening. There is no aortic stenosis. Pulmonic Valve Normal pulmonic valve. Great Vessels Normal aortic root. Normal arch. The inferior vena cava is dilated. No collapse of the inferior vena cava. Pericardium/Pleural No pericardial effusion. Medication Diluted definity 4.0ml given slow IV push to enhance endocardial definition. MMode/2D Measurements & Calculations LVIDd: 5.6 cm IVSd: 0.69 cm Ao root diam: 2.9 cm LVIDs: 4.8 cm LVPWd: 0.74 cm RVDd: 4.4 cm FS: 14.0 % LAV(MOD-bp): 72.8 ml LVAd ap4: 42.8 cm2 SV(MOD-sp4): 14.8 ml LAV(MOD-bp) Indexed: 37.4 ml/m2 EDV(MOD-sp4): 157.1 ml LAV(MOD-sp2): 75.0 ml EDV(sp4-el): 162.0 ml LAV(MOD-sp4): 69.4 ml LVAs ap4: 39.0 cm2 ESV(MOD-sp4): 142.4 ml ESV(sp4-el): 144.5 ml EF(MOD-sp4): 9.4 % EF(sp4-el): 10.8 % SV(sp4-el): 17.5 ml LA A4 area: 23.4 cm2 LA dimension(2D): 5.4 cm RA A4 area: 28.5 cm2 Time Measurements MV dec time: 0.10 sec Doppler Measurements & Calculations MV E max alan: 106.1 cm/sec Ao V2 max: 167.5 cm/sec LV V1 max: 69.2 cm/sec MV A max alan: 34.4 cm/sec Ao max P.2 mmHg LV V1 max P.9 mmHg MV E/A: 3.1 PA V2 max: 70.4 cm/sec TR max alan: 331.1 cm/sec TR max P.9 mmHg Interpretation Summary Severely dilated left ventricle. The estimated ejection fraction is 10-15 %. There is severe global hypokinesis of the left ventricle. Moderately dilated right ventricle. Mild to moderate global right ventricular systolic dysfunction. The left atrium is severely enlarged. The right atrium is severely enlarged. Mild (1+) mitral valve insufficiency. Moderate (2+) tricuspid valve insufficiency. Right ventricular systolic pressure estimated to be 59 mmHg. Moderate pulmonary hypertension. The inferior vena cava is dilated Compared to echo report dated 09/08/2018, LV function has diminished from 25% to around 10 to 15%. RVSP has decreased from 67 to 59 mmHg. Preliminary results relayed to Dr. Ibrahim on 08/10/2019 at 1600 hrs. The study was technically difficult. Contrast injection was performed. Ordering Physician: Maricruz Lee Referring Physician: HÉCTOR BATRES Performed By: Yolande Mccoy RDCS, RVT
--- NOTE | 2019-08-10 13:29 | EKG12_ITS ---
Test Reason : Blood Pressure : / mmHG Vent. Rate : 080 BPM Atrial Rate : 170 BPM P-R Int : 000 ms QRS Dur : 168 ms QT Int : 466 ms P-R-T Axes : 000 240 037 degrees QTc Int : 537 ms Electronic ventricular pacemaker When compared with ECG of 06-OCT-2018 05:00, No significant change was found Confirmed by INES BRAGA ([id number]), map editor MODE ZEE ([id number]) on 08/15/2019 11:44:01 AM Referred By: Confirmed By:INES BRAGA
--- NOTE | 2019-08-10 14:14 | CON.PCM_ITS ---
Problem List (1) Presence of biventricular implantable cardioverter-defibrillator (ICD) Status: Chronic (2) Chronic kidney disease, stage 3 Status: Chronic (3) Secondary 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 Status: Chronic (4) Chronic atrial fibrillation Status: Chronic (5) Acute on chronic systolic (congestive) heart failure Status: Chronic (6) Hyperlipidemia Status: Chronic Qualifiers: Hyperlipidemia type: unspecified Qualified Code(s): E78.5 - Hyperlipidemia, unspecified (7) Essential (primary) hypertension Status: Chronic (8) Ischemic cardiomyopathy Status: Chronic Reason for Consult Date of Consultation: 08/10/19 Reason for Consultation: Septic shock History of Present Illness: The patient is a 58 year old M, with past medical history listed below, presented to [facility] on 08/10/2019 secondary to I have symptoms of the coronavirus. Patient reportedly started to have a fever this morning as long as a cough with posttussive nausea. Patient has had some abdominal cramping, but denied any diarrhea, recent travel or emesis. Patient has not reported any exposure to a verified case of coronavirus, but states that he works at the [employer] and may have been exposed there. Patient did have a headache earlier in the day, but this resolved with aspirin. Patient had reported chills and sweats with some body aches. Patient gives a history of peripheral vascular disease and A. fib and is currently on anticoagulation. Patient does report that he has poor feeling in bilateral legs secondary to diabetes. In the ER, patient was noted to be tachypneic. Laboratory work-up showed unremarkable chemistries and a white count of 8.7. Patient did have a creatinine of 1.75, which appears to be elevated from his baseline of 1.14. Lactate was elevated at 2.9. Influenza and acute respiratory viral panel was negative. Chest x-ray showed some CHF changes. Patient was placed on 150 cc an hour and no bolus was given secondary to a history of CHF. Patient was admitted to the intensive care unit for possible COVID testing. On my evaluation in the intensive care unit, patient was comfortable on 2 L nasal cannula. Patient reported significant improvement in overall condition. Patient did not have any coughing episodes while being evaluated. Patient readily admits that he has decreased perception of bilateral legs. Patient is unaware of any pain or redness. 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 Patient reports a history of femoral bypass surgery. Review of systems otherwise negative from a constitutional, HEENT, respiratory, cardiovascular, GI, genitourinary, musculoskeletal, skin, neurologic, psychiatric and hematologic system unless stated above. Past Medical History Past Medical History (Chronic Problems): Chronic Problems (Last Reviewed 02/03/19 @ 10:[address] Keven Willingham MD) Presence of biventricular implantable cardioverter-defibrillator (ICD) (Chronic 07/11/15) Chronic kidney disease, stage 3 (Chronic) Secondary 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 (Chronic) 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) Old anterolateral wall myocardial infarction (Chronic) Chronic atrial fibrillation (Chronic) Acute on chronic systolic (congestive) heart failure (Chronic) Hyperlipidemia (Chronic) Essential (primary) hypertension (Chronic) Atherosclerosis of [place] coronary artery of [place] heart without angina pectoris (Chronic) PCI-EVAN-Mid LAD w/ 2.5 x 25 mm Promus and PCI-EVAN-D1 w/ 2.5 x 23 mm Promus 05/29/2009 Ischemic cardiomyopathy (Chronic) Medical History: Medical History (Last Reviewed 02/03/19 @ 10:[address] Keven Willingham MD) Chronic kidney disease, stage 3 (Chronic) N18.3 Secondary 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 (Chronic) I27.21 Old anterolateral wall myocardial infarction (Chronic) I25.2 Chronic atrial fibrillation (Chronic) I48.2 Acute on chronic systolic (congestive) heart failure (Chronic) I50.23 Hyperlipidemia (Chronic) E78.5 Essential (primary) hypertension (Chronic) I10 Atherosclerosis of [place] coronary artery of [place] heart without angina pectoris (Chronic) I25.10 PCI-EVAN-Mid LAD w/ 2.5 x 25 mm Promus and PCI-EVAN-D1 w/ 2.5 x 23 mm Promus 05/29/2009 Ischemic cardiomyopathy (Chronic) I25.5 Non-healing ulcer of lower extremity L97.909 BPH (benign prostatic hyperplasia) N40.0 COPD (chronic obstructive pulmonary disease) J44.9 GERD (gastroesophageal reflux disease) K21.9 LV (left ventricular) mural thrombus I51.3 Obesity E66.9 Obstructive sleep apnea G47.33 Peripheral vascular occlusive disease I73.9 Type 2 diabetes mellitus E11.9 Pleural effusion, left (Resolved) J90 Allergies tramadol Allergy (Verified 03/18/20 08:49) Hives Penicillins Adverse Reaction (Verified 08/10/19 08:49) Nausea Home Medications: Ambulatory Orders Medication Instructions Recorded Acetaminophen [Tylenol] 650 tab PO Q4H PRN PRN 09/30/18 Argin/Glut/Cahmb/Collag/Mv-Min 1 ea PO BID 09/30/18 [Tomás Packet] Atorvastatin Calcium [Lipitor] 40 mg PO QHS 09/30/18 Capsaicin 1 applic TP QHS 09/30/18 Ferrous Sulfate [Ferosul] 325 mg PO BID 09/30/18 Gabapentin [Neurontin] 100 mg PO TIDCM 09/30/18 Insulin Lispro [Humalog] 16 unit SQ TIDCM 09/30/18 Mineral Oil/Petrolatum,White 1 applic TOPICAL BID PRN 09/30/18 [Eucerin] Sacubitril/Valsartan 24/26 mg 1 ea PO BID 09/30/18 [Entresto 24 mg-26 mg Tablet] Tamsulosin HCl [Flomax] 0.4 mg PO QHS 09/30/18 Insulin Lispro [Humalog KwikPen] See Protocol SQ ACHS insuln.pen 10/06/18 nitroglycerin 0.4 mg sublingual See Rx Instructions .ROUTE 11/10/18 tablet .COMPLEX #25 each aspirin 81 mg chewable tablet 81 mg PO DAILY@0800 #90 tab 04/13/19 famotidine 40 mg tablet 40 mg PO DAILY #90 tab 06/07/19 warfarin 4 mg tablet 4 mg PO DAILY #30 tab 06/13/19 furosemide 20 mg tablet 20 mg PO DAILY tab 06/22/19 furosemide 40 mg tablet 40 mg PO DAILY tab 06/22/19 glipizide 2.5 mg tablet, extended 2.5 mg PO BID 06/22/19 release 24 hr carvedilol 3.125 mg tablet 3.125 mg PO BID #60 tab 07/05/19 Surgical History: Surgical History (Last Reviewed 02/03/19 @ 10:[address] Keven Willingham MD) Presence of biventricular implantable cardioverter-defibrillator (ICD) (Chronic) Onset Date: 07/11/15 Z95.810 History of coronary artery stent placement (Resolved) Onset Date: 05/29/09 Z95.5 PCI-EVAN-Mid LAD w/ 2.5 x 25 mm Promus and PCI-EVAN-D1 w/ 2.5 x 23 mm Promus 05/29/2009 History of zaqbv-oyuwq-sxatgmr bypass Z95.828 History of cardiac pacemaker Z95.0 History of cholecystectomy Z98.890, Z90.49 Hx of atrioventricular node ablation Onset Date: 07/11/15 Z98.890 Surgical History: angioplasty, cholecystectomy, pacemaker implantation, - Psychiatric History: No pertinent psych hx Lives: Alone Smoking Status: Former smoker Tobacco Use: Non-smoker Alcohol: None Drugs: None - *Family History Paternal Family History: Family History (Last Reviewed 02/03/19 @ 10:[address] Keven Willingham MD) Father Hypertension CAD (coronary artery disease) Sister Cancer History Items: Heart Disease - CAD; at approximately 45 years of age Maternal Family History: Family History (Last Reviewed 02/03/19 @ 10:[address] Keven Willingham MD) Father Hypertension CAD (coronary artery disease) Sister Cancer History Items: Cancer - lung cancer Review of Systems Comment: See HPI Objective: Chest x-ray was personally reviewed and shows bilateral cephalization with alveolar infiltrates. Viral panel and influenza were negative. Blood cultures are pending. Patient's last echocardiogram was in August 2018 showing dilated ventricles with an EF of 25% and a PASP of 67 mmHg. Patient appeared to be overloaded at that time with a dilated IVC. No pulmonary function tests are available for review. - Physical Exam Vitals/I&O's: Vital Signs Temp Pulse Resp BP Pulse Ox 38.7 C H 80 19 H 86/54 L 99 08/10/19 11:35 08/10/19 13:57 08/10/19 13:57 08/10/19 13:57 08/10/19 13:57 Oxygen Flow Rate (L/min) 2 Oxygen Delivery Method Nasal Cannula Weight: 90 kg Body Mass Index (BMI) 34.0 Finger Stick Blood Glucose 87 Intake and Output for Last 24 Hours 08/08/19 08/09/19 08/10/19 23:59 23:59 23:59 Intake Total 2762.0 / 2762.0 Balance 2762.0 / 2762.0 General: Alert, Oriented x3, Cooperative, No apparent distress, Well developed, Well nourished, - - Appears older than stated age HEENT: Atraumatic, PERRLA, EOMI, Normocephalic, - - No scleral icterus or inject ion noted Oral: Moist Mucosa, No Gingival or Mucosal Lesions/ Ulcerations Neck: Supple, No JVD, No Nodes, Trachea Midline Lungs: No rhonchi, No wheeze, Diminished, Rales, - - Symmetric expansion. No dullness to percussion. Cardiovascular: Regular rate, Regular Rhythm, Normal S1, Normal S2, No murmurs, No rub noted, No Gallop, - - Paced rhythm on telemetry Abdomen: Bowel Sounds Present, Soft, Non Tender, Non-Distended, Obese Extremities: No clubbing, No cyanosis, Edema - Left lower extremity warm to the touch anterior with rubor. Skin: Ulcer/ Wound - Bottom of left foot, Rash Present Musculoskeletal: No Tenderness to Palpation of Joints or Extremities Lymphatic: No Cervical, Supraclavicular, or Inguinal Adenopathy Neurological: Cranial nerves II-XII grossly intact, Neuro grossly intact - Decreased sensation bilateral lower extremities, but movement is intact Psych/Mental Status: Normal Affect, Appropriate Microbiology Past 72 Hours 08/10/19 10:48 Mucosa - Nose Respiratory Panel (PCR) - Final 08/10/19 08:40 Mucosa - Nose Influenza Types A,B Direct FA (RAUL) - Final Laboratory Results 08/10/19 09:10: WBC 8.7, RBC 5.25, Hgb 15.7, Hct 50.0, MCV 95.2 H, MCH 29.9, MCHC 31.4 L, RDW Std Deviation 56.4 H, RDW Coeff of Terrie 15.9 H, Plt Count 90 L, MPV 11.3, Immature Gran % (Auto) 0.300, Neut % (Auto) 91.1 H, Lymph % (Auto) 4.0 L, Coal % (Auto) 4.1, Eos % (Auto) 0.3, Baso % (Auto) 0.2, Absolute Neuts (auto) 7.9 H, Absolute Lymphs (auto) 0.35 L, Nucleated RBC % 0, Differential Comment , Platelet Estimate SLT DEC, RBC Morphology NORM C+C 08/10/19 09:10: PT Cancelled, INR Cancelled 08/10/19 09:10: Sodium Cancelled, Potassium Cancelled, Chloride Cancelled, Carbon Dioxide Cancelled, Anion Gap Cancelled, BUN Cancelled, Creatinine Cancelled, Estim Creat Clear Calc Cancelled, Est GFR (MDRD) Af Amer Cancelled, Est GFR (MDRD) Non-Af Cancelled, BUN/Creatinine Ratio Cancelled, Glucose Cancelled, Calcium Cancelled, Total Bilirubin Cancelled, AST Cancelled, ALT Cancelled, Alkaline Phosphatase Cancelled, Total Protein Cancelled, Albumin Cancelled, Globulin Cancelled, Albumin/Globulin Ratio Cancelled 08/10/19 09:10: Lactic Acid 2.9 H* 08/10/19 09:10: B-Natriuretic Peptide 605.5 H 08/10/19 09:40: PT 19.9 H, INR 1.7 08/10/19 09:40: Sodium 140, Potassium 4.8, Chloride 110 H, Carbon Dioxide 22.0, Anion Gap 8, BUN 37 H, Creatinine 1.75 H, Estim Creat Clear Calc 39.47, Est GFR (MDRD) Af Amer 52 L, Est GFR (MDRD) Non-Af 43 L, BUN/Creatinine Ratio 21.1 H, Glucose 129 H, Calcium 8.8, Total Bilirubin 2.70 H, AST 34, ALT 25, Alkaline Phosphatase 349 H, Total Protein 7.7, Albumin 3.8, Globulin 3.9, Albumin/Globulin Ratio 1.0 08/10/19 13:35: Lactic Acid Pending 08/10/19 13:35: Troponin I Pending Current Medications Acetaminophen (Tylenol) 650 mg PO Q6H PRN PRN PRN Reason: Pain Score 1-10/Temp > 100.7 F Albuterol Sulfate (Ventolin Aerosols) 2.5 mg INHALATION Q2H PRN PRN PRN Reason: SOB/Wheezing Glucagon () 1 mg IM .X1 PRN PRN Reason: Hypoglycemia Heparin Sodium (Porcine) (Heparin Na) 5,000 unit SC Q8 MARISEL Levofloxacin (Levaquin Iv) 750 mg in 150 mls @ 100 mls/hr IV Q24 MARISEL Piperacillin Sod/Tazobactam (Sod 3.375 gm/ Sodium Chloride) 50 mls @ 12.5 mls/hr IV Q8 MARISEL Sodium Chloride () 1,000 mls @ 126 mls/hr IV .Q7H57M MARISEL Norepinephrine Bitartrate 8 mg (/ Sodium Chloride) 250 mls @ 9.375 mls/hr CONT INF .[id number] MARISEL; Protocol Dextrose (Dextrose 10%-Water) 250 mls @ 999 mls/hr IV .Q16M PRN; Protocol PRN Reason: HYPOGLYCEMIA Lactated Ringer's () 1,000 mls @ 999 mls/hr IV .Q1H1M MARISEL Stop: 08/10/19 15:05 Insulin Human Lispro (Humalog Kwikpen (Bkc)) 0 unit SC ACHS MARISEL; Protocol Ondansetron HCl (Zofran) 4 mg IV Q8H PRN PRN PRN Reason: NAUSEA/VOMITING Sodium Chloride () 10 - 40 ml IV UD PRN PRN Reason: SALINE FLUSH Clinical Impression(s) from Imaging Studies Chest X-Ray 08/10/19 09:30 IMPRESSION: Findings in keeping with CHF. Electronically Signed: Mann Felipasalimabilly, at 9:48 EDT , Service support , Assessment/Plan RECOMMENDATIONS: 1. Give additional fluid bolus 2. Place central line with possible pressors 3. Consult ID. Suggest holding on COVID testing pending blood cultures 4. Await echocardiogram with IVC evaluation 5. Wean oxygen as tolerated IMPRESSIONS: 1. Probable septic shock secondary to left lower extremity cellulitis Patient with decreased feeling of his left lower extremity and an ulcer on the dorsum of his foot. Patient was reporting fever and cough, but this resolved with improvement in blood pressure. Clinical suspicion for left lower extremity cellulitis leading to septic shock. Patient has very little respiratory symptoms now that he has received a bolus. Will place a central line. Patient does have significant systolic dysfunction, so we will have to be careful to watch respiratory status for overload. Agree with empiric an tibiotics. Patient has reported nausea to penicillins, but appears to be tolerating Zosyn well. 2. Possible acute on chronic systolic congestive heart failure/A. fib Fluid status is unclear at this time. Patient is hypotensive, but has a pattern on chest x-ray suggestive of pulmonary edema. Patient does have 2 L nasal cannula oxygen at this time, but saturating 99% with improved blood pressures. Echocardiogram is currently pending. Likely initiate pressor therapy at a lower threshold in an effort to avoid complications. 3. CKD stage III/hyperlipidemia/history of LV thrombus/secondary pulmonary hypertension/hypertension/possible COPD Complicates care, management, recovery and prognosis. Unclear baseline creatinine. Patient was 1.14 less than a year ago. We will continue to monitor closely. Clinical suspicion for prerenal etiology. Patient is anticoagulated at this time. Patient does have an echocardiogram currently being performed. Patient does have an extensive smoking history in the past. Patient believes he was diagnosed with COPD in the past, but does not know his exact function. Patient does not use inhalers at baseline. TIME: 35 minutes critical care time spent addressing patient's septic shock, CHF, possible COPD, review of all data and collaboration with care team (2 PM to 2:50 PM) 9xxxx: [id number] Critical care first hour
[2019-08-10] MEDS: Lactated Ringers 1,000 ML 999 ML IV (14:30)
[2019-08-10 14:37] LABS: Procalcitonin 0.11 ng/mL (0.00-0.09)
[2019-08-10] MEDS: 0.9% Normal Saline 1,000 ML 126 ML IV ×2 (15:25→23:02)
--- NOTE | 2019-08-10 16:32 | PCM.OPRPT ---
Report of Operation Date of Procedure: 08/10/19 Surgery/Procedure Performed:: Triple-lumen catheter placement Description of Surgical Findings:: Central line placement procedure note Indication: IV access/hemodynamic instability/vasoactive medications Procedure: A time-out was completed to verify correct patient, indication, medication allergies, procedure, coagulation studies, informed consent signed, and equipment needed. The patient was placed in the supine position for a central line placement to the rt IJ vein. The patients rt neck was prepped using chlorhexidine and a full body sterile drape was applied. 1% lidocaine was used to anesthetize the surrounding skin. Vein was successfully accessed using ultrasound and modified Seldinger technique. Unable to fully advance the guidewire. Guidewire withdrawn. Site aborted. Pressure held to site until no signs of bleeding.The patients left neck was prepped using chlorhexidine and a full body sterile drape was applied. 1% lidocaine was used to anesthetize the surrounding skin. A 7fr 20 cm blue guard triple lumen catheter introduced into the internal jugular vein using the modified Seldinger technique with the assistance of ultrasound. The catheter was threaded smoothly over the guidewire, the guidewire was removed easily, nonpulsatile blood returned. All ports were aspirated of air and flushed with sterile saline. The catheter was sutured in place and covered with an occlusive dressing impregnated with chlorhexidine. Post-procedure: The patient tolerated the procedure well. Vital signs remained stable. EBL 7 cc. No complications. Chest X Ray ordered to confirm tip placement and the absence of pneumothorax. Procedure completed with the assistance of Dr Lee. Procedures: [id number] Insert Non-tunnel CV Cath
--- NOTE | 2019-08-10 16:40 | RAD_ITS ---
STUDY: X-RAY CHEST REASON FOR EXAM: Male, 58 years old. central line placement TECHNIQUE: AP portable COMPARISON: August 10, 2019 FINDINGS: Patchy retrocardiac infiltrate is seen in left lower lobe. There is no demonstrated pleural abnormality. Normal size heart. Normal mediastinum and katrina. Normal visualized pulmonary arteries. Mildly calcified aortic arch and descending thoracic aorta. Pacer noted on the right with electrodes in satisfactory position. Normal visualized thoracic spine. Normal visualized ribs, clavicles, and shoulders. Central line seen on the left with tip in the distal superior vena cava at the atrial caval junction There is no demonstrated abnormality of the visualized soft tissue structures of the upper abdomen. RAD/CXR for Line Placement IMPRESSION: Mild left lower lobe infiltrate. . Central line placement on the left with tip at the level of the atrial caval junction. No associated pneumothorax Electronically Signed: Jaylon Dorado MD at 16:54 EDT , Service support ,
--- NOTE | 2019-08-10 16:57 | PCM.HP.ID ---
Reason for Consult: fever Consulted by: Dr. Aldana History of Present Illness: The patient is a 58 year old M with pulm htn, CHF, Bi-V ICD, DM, neuropathy, presented with one week of not feeling well, aches, headache, nausea, cough with white sputum, dyspnea. Symptoms became much worse yesterday with fever and chills, came to ED. Admitted on levaquin/zosyn, fever documented here, now in neg airflow, feeling better. Able to lie flat without feeling shortness of breath. No cough currently. Has increased edema these past few days. Some redness of LLE, but denies pain. Neuropathy goes up to bilateral knees. No pain in thigh. No sick contacts, no travel, does go to AA meetings. Full ROS Performed and neg except as noted above. - Medical History Past Medical History (Chronic Problems): Chronic Problems (Last Reviewed 02/03/19 @ 10:[address] 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 wall myocardial infarction (Chronic) Chronic atrial fibrillation (Chronic) Acute on chronic systolic (congestive) heart failure (Chronic) Hyperlipidemia (Chronic) Essential (primary) hypertension (Chronic) Atherosclerosis of [place] coronary artery of [place] heart without angina pectoris (Chronic) PCI-EVAN-Mid LAD w/ 2.5 x 25 mm Promus and PCI-EVAN-D1 w/ 2.5 x 23 mm Promus 05/29/2009 Ischemic cardiomyopathy (Chronic) Allergies/Adverse Reactions: Allergies tramadol Allergy (Verified 08/10/19 08:49) Hives Penicillins Adverse Reaction (Verified 08/10/19 08:49) Nausea Home Medications: Ambulatory Orders Medication Instructions Recorded Acetaminophen [Tylenol] 650 tab PO Q4H PRN PRN 09/30/18 Argin/Glut/Cahmb/Collag/Mv-Min 1 ea PO BID 09/30/18 [Tomás Packet] Atorvastatin Calcium [Lipitor] 40 mg PO QHS 09/30/18 Capsaicin 1 applic TP QHS 09/30/18 Ferrous Sulfate [Ferosul] 325 mg PO BID 09/30/18 Gabapentin [Neurontin] 100 mg PO TIDCM 09/30/18 Insulin Lispro [Humalog] 16 unit SQ TIDCM 09/30/18 Mineral Oil/Petrolatum,White 1 applic TOPICAL BID PRN 09/30/18 [Eucerin] Sacubitril/Valsartan 24/26 mg 1 ea PO BID 09/30/18 [Entresto 24 mg-26 mg Tablet] Tamsulosin HCl [Flomax] 0.4 mg PO QHS 09/30/18 Insulin Lispro [Humalog KwikPen] See Protocol SQ ACHS insuln.pen 10/06/18 nitroglycerin 0.4 mg sublingual See Rx Instructions .ROUTE 11/10/18 tablet .COMPLEX #25 each aspirin 81 mg chewable tablet 81 mg PO DAILY@0800 #90 tab 04/13/19 famotidine 40 mg tablet 40 mg PO DAILY #90 tab 06/07/19 warfarin 4 mg tablet 4 mg PO DAILY #30 tab 06/13/19 furosemide 20 mg tablet 20 mg PO DAILY tab 06/22/19 furosemide 40 mg tablet 40 mg PO DAILY tab 06/22/19 glipizide 2.5 mg tablet, extended 2.5 mg PO BID 06/22/19 release 24 hr carvedilol 3.125 mg tablet 3.125 mg PO BID #60 tab 07/05/19 - Social History SMOKING STATUS:: Former smoker Vital Signs Temp Pulse Resp BP Pulse Ox 101.7 F H 92 16 98/60 100 08/10/19 11:35 08/10/19 16:00 08/10/19 16:00 08/10/19 16:00 08/10/19 16:00 Oxygen Flow Rate (L/min) 2 Oxygen Delivery Method Nasal Cannula Weight: 90 kg Body Mass Index (BMI) 34.0 Finger Stick Blood Glucose 87 Microbiology Past 72 Hours 08/10/19 10:48 Respiratory Panel (PCR) - Final Mucosa - Nose 08/10/19 08:40 Influenza Types A,B Direct FA (RAUL) - Final Mucosa - Nose Laboratory Tests Past 24 Hrs 08/10/19 08/10/19 08/10/19 09:10 09:10 09:10 WBC 8.7 RBC 5.25 Hgb 15.7 Hct 50.0 MCV 95.2 H MCH 29.9 MCHC 31.4 L RDW Std Deviation 56.4 H RDW Coeff of Terrie 15.9 H Plt Count 90 L MPV 11.3 Immature Gran % (Auto) 0.300 Neut % (Auto) 91.1 H Lymph % (Auto) 4.0 L [place] % (Auto) 4.1 Eos % (Auto) 0.3 Baso % (Auto) 0.2 Absolute Neuts (auto) 7.9 H Absolute Lymphs (auto) 0.35 L Nucleated RBC % 0 Differential Comment Platelet Estimate SLT DEC RBC Morphology NORM C+C PT Cancelled INR Cancelled Sodium Cancelled Potassium Cancelled Chloride Cancelled Carbon Dioxide Cancelled Anion Gap Cancelled BUN Cancelled Creatinine Cancelled Estim Creat Clear Calc Cancelled Est GFR (MDRD) Af Amer Cancelled Est GFR (MDRD) Non-Af Cancelled BUN/Creatinine Ratio Cancelled Glucose Cancelled Lactic Acid Calcium Cancelled Total Bilirubin Cancelled AST Cancelled ALT Cancelled Alkaline Phosphatase Cancelled Troponin I B-Natriuretic Peptide Total Protein Cancelled Albumin Cancelled Globulin Cancelled Albumin/Globulin Ratio Cancelled Procalcitonin 08/10/19 08/10/19 08/10/19 09:10 09:10 09:10 WBC RBC Hgb Hct MCV MCH MCHC RDW Std Deviation RDW Coeff of Terrie Plt Count MPV Immature Gran % (Auto) Neut % (Auto) Lymph % (Auto) [place] % (Auto) Eos % (Auto) Baso % (Auto) Absolute Neuts (auto) Absolute Lymphs (auto) Nucleated RBC % Differential Comment Platelet Estimate RBC Morphology PT INR Sodium Potassium Chloride Carbon Dioxide Anion Gap BUN Creatinine Estim Creat Clear Calc Est GFR (MDRD) Af Amer Est GFR (MDRD) Non-Af BUN/Creatinine Ratio Glucose Lactic Acid 2.9 H* Calcium Total Bilirubin AST ALT Alkaline Phosphatase Troponin I B-Natriuretic Peptide 605.5 H Total Protein Albumin Globulin Albumin/Globulin Ratio Procalcitonin 0.11 H 08/10/19 08/10/19 08/10/19 09:40 09:40 13:35 WBC RBC Hgb Hct MCV MCH MCHC RDW Std Deviation RDW Coeff of Terrie Plt Count MPV Immature Gran % (Auto) Neut % (Auto) Lymph % (Auto) [place] % (Auto) Eos % (Auto) Baso % (Auto) Absolute Neuts (auto) Absolute Lymphs (auto) Nucleated RBC % Differential Comment Platelet Estimate RBC Morphology PT 19.9 H INR 1.7 Sodium 140 Potassium 4.8 Chloride 110 H Carbon Dioxide 22.0 Anion Gap 8 BUN 37 H Creatinine 1.75 H Estim Creat Clear Calc 39.47 Est GFR (MDRD) Af Amer 52 L Est GFR (MDRD) Non-Af 43 L BUN/Creatinine Ratio 21.1 H Glucose 129 H Lactic Acid 2.0 Calcium 8.8 Total Bilirubin 2.70 H AST 34 ALT 25 Alkaline Phosphatase 349 H Troponin I B-Natriuretic Peptide Total Protein 7.7 Albumin 3.8 Globulin 3.9 Albumin/Globulin Ratio 1.0 Procalcitonin 08/10/19 13:35 WBC RBC Hgb Hct MCV MCH MCHC RDW Std Deviation RDW Coeff of Terrie Plt Count MPV Immature Gran % (Auto) Neut % (Auto) Lymph % (Auto) [place] % (Auto) Eos % (Auto) Baso % (Auto) Absolute Neuts (auto) Absolute Lymphs (auto) Nucleated RBC % Differential Comment Platelet Estimate RBC Morphology PT INR Sodium Potassium Chloride Carbon Dioxide Anion Gap BUN Creatinine Estim Creat Clear Calc Est GFR (MDRD) Af Amer Est GFR (MDRD) Non-Af BUN/Creatinine Ratio Glucose Lactic Acid Calcium Total Bilirubin AST ALT Alkaline Phosphatase Troponin I 0.030 B-Natriuretic Peptide Total Protein Albumin Globulin Albumin/Globulin Ratio Procalcitonin - Other Studies Radiology: [] reviewed Other Studies: [] Route of nutrition/ use of supplements: [] Nutritional Intake: [] IV Site: [] Ureña Catheter: [] - Physical Exam General: Alert, Oriented x3, Cooperative, No apparent distress HEENT: Atraumatic, PERRLA, EOMI Neck: Supple, No Nodes Lungs: Clear to auscultation - anterior exam, Normal air movement Cardiovascular: Regular rate, Regular Rhythm, No murmurs Abdomen: Soft, Non Tender, Non-Distended Extremities: Edema Skin: - - Mild LLE medial erythema up through thigh, nontender, not warm. Dry ulcer on L sole of foot, no redness or drainage around it. IV Site: Central Line, without redness Musculoskeletal: No Tenderness to Palpation of Joints or Extremities Neurological: Cranial nerves II-XII grossly intact, - - peripheral neuropathy - Assessment/Plan Antibiotics: [] Assessment/Plan: [] severe sepsis - fever, myalgias, cough/SOB, lymphopenia, normal PCT, hypotension, normal wbc. Neg resp pcr panel. LLE has mild redness and ulcer on bottom of the foot, but not hot/tender/draining. Able to lay flat for central line placement without any issue, so doubt pulm edema. Had a week of symptoms and then worsening. In isolation, will re-eval in AM re: COVID testing. Cont levaquin/zosyn for now. No cough currently. Feeling better. Will follow, thank you, dDennisw nursing and Dr. Aldana.
[2019-08-10] MEDS: Heparin Injection (Vial) 5,000 UNIT/ML VIAL 5000 UNIT SC (21:09)
[2019-08-10 21:16] LABS: Bedside Glucose 97 mg/dL (70-110)
[2019-08-10 22:30] LABS: Bacteria 0 SEEN /hpf (None Seen)
[2019-08-10 22:34] LABS: Color, Urine Yellow (Yellow); Glucose, Dipstick Normal (Normal); Ketone-Dipstick 5 mg/dl (Negative); Leukocyte Esterase-Dipstick 25 /ul (Negative); Nitrite-Dipstick Negative (Negative); Occult Blood-Urine Negative /ul (Negative); Protein-Dipstick 15 mg/dl (Negative); Urine Bilirubin Dipstick 1 mg/dL (Negative); Urine Clarity Clear (Clear); Urine Urobilinogen 4 mg/dl (Normal)
[2019-08-10 22:40] LABS: Squamous Epithelial Cells - UA 0-5 SEEN /hpf (0-5)
[2019-08-10 22:43] LABS: White Blood Cells 0-5 SEEN /hpf (0-5)
[2019-08-10 22:44] LABS: Red Blood Cells-Urine 0-5 SEEN /hpf (0-5)
[2019-08-10 22:46] LABS: Mucous, Urine 1+ /hpf (<or=2+)
[2019-08-10 22:47] LABS: Hyaline Cast 25-50 SEEN /lpf (0-5)
[2019-08-11] VITALS (44 sets, daily range): BP systolic 71–125; BP diastolic 46–80; PULSE 80–82; RESP 11–30; TEMP 36.9–38.2; O2SAT 94–100
[2019-08-11 04:07] LABS: Absolute Neutrophil Count 11.9 X10^3/uL (2.0-7.7); Basophil# 0.04 X10^3/uL; Basophil% 0.3 % (0-1); Eosinophil# 0.04 X10^3/uL; Eosinophils% 0.3 % (0-5); Hematocrit 44.7 % (40-54); Hemoglobin 14.2 g/dL (13.0-16.5); Lymphocyte % 2.3 % (19-41); Mean Corp Hgb Conc 31.8 g/dL (32-36); Mean Corpuscular Hgb 30.5 pg (27.0-32.0); Mean Corpuscular Volume 95.9 fL (80-94); Mean Platelet Vol. 12.2 fl (6.2-12.0); Monocyte% 3.9 % (0-10); NRBC Flagged by Analyzer 0 % (0-5); Neutrophil # 11.85 X10^3/uL (2.7-7.7); POSITIVE COUNT YES; POSITIVE DIFFERENTIAL YES; POSITIVE MORPHOLOGY YES; Platelet Count 72 K/mm3 (150-450); RBC Distribution Width CV 15.8 % (11.6-14.6); Red Blood Count 4.66 M/mm3 (4.6-6.2); White Blood Count 12.9 K/mm3 (4.4-11.0)
[2019-08-11 04:23] LABS: Differential Indicated SCAN CRITERIA MET
[2019-08-11 04:25] LABS: ALB/GLOB Ratio 0.8 RATIO (0.9-2.4); AST(SGOT) 34 U/L (15-37); Alanine Aminotransfer ALT/SGPT 29 U/L (16-61); Albumin, Serum 2.9 g/dL (3.2-5.0); Alkaline Phosphatase 235 U/L (45-117); Anion Gap 8 (5-15); BUN 42 mg/dL (7-18); BUN/Creat Ratio 22.1 RATIO (10-20); Chloride 107 mmol/L (98-107); EST Glomerular Filtration Rate 39 mL/min (>60); Est Glom Filt Rate - Afr Amer 47 mL/min (>60); Estimated Creatinine Clearance 36.35 ml/min; Globulin 3.6 g/dL (2.2-4.2); Glucose 92 mg/dL (74-106); Potassium 4.8 mmol/L (3.5-5.1); Protein, Total 6.5 g/dL (6.4-8.2); Sodium Level 135 mmol/L (136-145)
[2019-08-11 04:52] LABS: Anisocytosis 1+; Crenated RBC 2+; Ovalocyte RARE; Platelet Estimate MOD DEC (ADEQ); Polychromasia RARE
[2019-08-11] MEDS: Heparin Injection (Vial) 5,000 UNIT/ML VIAL 5000 UNIT SC ×3 (05:14→21:22)
[2019-08-11] MEDS: Acetaminophen 325 MG Tablet 650 MG PO (05:17)
[2019-08-11] MEDS: 0.9% Normal Saline 1,000 ML 126 ML IV (06:39)
--- NOTE | 2019-08-11 06:58 | PCM.PN.INT ---
Subjective: Patient did well overnight. Patient's blood pressures have been marginal, but Levophed did not have to be started until this morning. Patient has come back positive for gram-positive cocci in his blood. Blood sugars have been a little bit elevated. Patient had some urinary retention and had requested a Ureña catheter. Respiratory status has remained stable and patient is 97% on room air. Cough is improving per the patient. Patient is reporting some mild discomfort of the lower legs, but states he still has a majority of paresthesia. Objective: Echocardiogram reportedly had an EF of 15%, but formal report is not available for review at this time. General: Alert, Oriented x3, Cooperative, No apparent distress, Well developed, Well nourished, - - No conversational dyspnea. No cough during evaluation HEENT: Atraumatic, PERRLA, EOMI, Normocephalic, - - No scleral icterus or injection noted Oral: Moist Mucosa, No Gingival or Mucosal Lesions/ Ulcerations Neck: Supple, No JVD, No Nodes, Trachea Midline Lungs: No rhonchi, No wheeze, No rales, Diminished, - - Symmetric expansion. No dullness to percussion. Cardiovascular: Regular rate, Regular Rhythm, Normal S1, Normal S2, No murmurs, No rub noted, No Gallop Abdomen: Bowel Sounds Present, Soft, Non Tender, Non-Distended, Obese Extremities: No clubbing, No cyanosis, Edema Skin: Ulcer/ Wound - No change from admission, Rash Present - Extension into the groin noted. Warmer to the touch today. Musculoskeletal: No Tenderness to Palpation of Joints or Extremities Lymphatic: No Cervical, Supraclavicular, or Inguinal Adenopathy Neurological: Cranial nerves II-XII grossly intact, Neuro grossly intact - Outside of lower extremity paresthesias Psych/Mental Status: Alert and oriented to time, place, person, mood and affect Vital Signs Temp Pulse Resp BP Pulse Ox 38.2 C H 80 15 82/53 L 98 08/11/19 04:00 08/11/19 06:45 08/11/19 06:30 08/11/19 06:45 08/11/19 06:30 Oxygen Flow Rate (L/min) 2 Oxygen Delivery Method Room Air Weight: 94.2 kg Body Mass Index (BMI) 34.0 Finger Stick Blood Glucose 87 Intake and Output for Last 24 Hours 08/09/19 08/10/19 08/11/19 23:59 23:59 23:59 Intake Total 5421.7 / 5421.7 1264.40 / 1264.40 Output Total 800 / 800 175 / 175 Balance 4621.7 / 4621.7 1089.40 / 1089.40 Labs (Last 48 Hours) 08/10/19 08/10/19 08/10/19 09:10 09:10 09:10 WBC 8.7 RBC 5.25 Hgb 15.7 Hct 50.0 MCV 95.2 H MCH 29.9 MCHC 31.4 L RDW Std Deviation 56.4 H RDW Coeff of Terrie 15.9 H Plt Count 90 L MPV 11.3 Immature Gran % (Auto) 0.300 Neut % (Auto) 91.1 H Lymph % (Auto) 4.0 L [place] % (Auto) 4.1 Eos % (Auto) 0.3 Baso % (Auto) 0.2 Absolute Neuts (auto) 7.9 H Absolute Lymphs (auto) 0.35 L Nucleated RBC % 0 Differential Comment Platelet Estimate SLT DEC RBC Morphology NORM C+C Polychromasia Anisocytosis Ovalocytes Crenated Cell PT Cancelled INR Cancelled Sodium Cancelled Potassium Cancelled Chloride Cancelled Carbon Dioxide Cancelled Anion Gap Cancelled BUN Cancelled Creatinine Cancelled Estim Creat Clear Calc Cancelled Est GFR (MDRD) Af Amer Cancelled Est GFR (MDRD) Non-Af Cancelled BUN/Creatinine Ratio Cancelled Glucose Cancelled Lactic Acid Calcium Cancelled Total Bilirubin Cancelled AST Cancelled ALT Cancelled Alkaline Phosphatase Cancelled Troponin I B-Natriuretic Peptide Total Protein Cancelled Albumin Cancelled Globulin Cancelled Albumin/Globulin Ratio Cancelled Procalcitonin Urine Color Urine Clarity Urine pH Ur Specific [place] Urine Protein Urine Glucose (UA) Urine Ketones Urine Occult Blood Urine Nitrite Urine Bilirubin Urine Urobilinogen Ur Leukocyte Esterase Urine RBC Urine WBC Ur Squamous Epith Cells Urine Bacteria Hyaline Casts Urine Mucus POC Glucose 08/10/19 08/10/19 08/10/19 09:10 09:10 09:10 WBC RBC Hgb Hct MCV MCH MCHC RDW Std Deviation RDW Coeff of Terrie Plt Count MPV Immature Gran % (Auto) Neut % (Auto) Lymph % (Auto) [place] % (Auto) Eos % (Auto) Baso % (Auto) Absolute Neuts (auto) Absolute Lymphs (auto) Nucleated RBC % Differential Comment Platelet Estimate RBC Morphology Polychromasia Anisocytosis Ovalocytes Crenated Cell PT INR Sodium Potassium Chloride Carbon Dioxide Anion Gap BUN Creatinine Estim Creat Clear Calc Est GFR (MDRD) Af Amer Est GFR (MDRD) Non-Af BUN/Creatinine Ratio Glucose Lactic Acid 2.9 H* Calcium Total Bilirubin AST ALT Alkaline Phosphatase Troponin I B-Natriuretic Peptide 605.5 H Total Protein Albumin Globulin Albumin/Globulin Ratio Procalcitonin 0.11 H Urine Color Urine Clarity Urine pH Ur Specific [place] Urine Protein Urine Glucose (UA) Urine Ketones Urine Occult Blood Urine Nitrite Urine Bilirubin Urine Urobilinogen Ur Leukocyte Esterase Urine RBC Urine WBC Ur Squamous Epith Cells Urine Bacteria Hyaline Casts Urine Mucus POC Glucose 08/10/19 08/10/19 08/10/19 09:40 09:40 13:35 WBC RBC Hgb Hct MCV MCH MCHC RDW Std Deviation RDW Coeff of Terrie Plt Count MPV Immature Gran % (Auto) Neut % (Auto) Lymph % (Auto) [place] % (Auto) Eos % (Auto) Baso % (Auto) Absolute Neuts (auto) Absolute Lymphs (auto) Nucleated RBC % Differential Comment Platelet Estimate RBC Morphology Polychromasia Anisocytosis Ovalocytes Crenated Cell PT 19.9 H INR 1.7 Sodium 140 Potassium 4.8 Chloride 110 H Carbon Dioxide 22.0 Anion Gap 8 BUN 37 H Creatinine 1.75 H Estim Creat Clear Calc 39.47 Est GFR (MDRD) Af Amer 52 L Est GFR (MDRD) Non-Af 43 L BUN/Creatinine Ratio 21.1 H Glucose 129 H Lactic Acid 2.0 Calcium 8.8 Total Bilirubin 2.70 H AST 34 ALT 25 Alkaline Phosphatase 349 H Troponin I B-Natriuretic Peptide Total Protein 7.7 Albumin 3.8 Globulin 3.9 Albumin/Globulin Ratio 1.0 Procalcitonin Urine Color Urine Clarity Urine pH Ur Specific [place] Urine Protein Urine Glucose (UA) Urine Ketones Urine Occult Blood Urine Nitrite Urine Bilirubin Urine Urobilinogen Ur Leukocyte Esterase Urine RBC Urine WBC Ur Squamous Epith Cells Urine Bacteria Hyaline Casts Urine Mucus POC Glucose 08/10/19 08/10/19 08/10/19 13:35 18:45 21:06 WBC RBC Hgb Hct MCV MCH MCHC RDW Std Deviation RDW Coeff of Terrie Plt Count MPV Immature Gran % (Auto) Neut % (Auto) Lymph % (Auto) [place] % (Auto) Eos % (Auto) Baso % (Auto) Absolute Neuts (auto) Absolute Lymphs (auto) Nucleated RBC % Differential Comment Platelet Estimate RBC Morphology Polychromasia Anisocytosis Ovalocytes Crenated Cell PT INR Sodium Potassium Chloride Carbon Dioxide Anion Gap BUN Creatinine Estim Creat Clear Calc Est GFR (MDRD) Af Amer Est GFR (MDRD) Non-Af BUN/Creatinine Ratio Glucose Lactic Acid Calcium Total Bilirubin AST ALT Alkaline Phosphatase Troponin I 0.030 0.022 B-Natriuretic Peptide Total Protein Albumin Globulin Albumin/Globulin Ratio Procalcitonin Urine Color Urine Clarity Urine pH Ur Specific [place] Urine Protein Urine Glucose (UA) Urine Ketones Urine Occult Blood Urine Nitrite Urine Bilirubin Urine Urobilinogen Ur Leukocyte Esterase Urine RBC Urine WBC Ur Squamous Epith Cells Urine Bacteria Hyaline Casts Urine Mucus POC Glucose 97 08/10/19 08/11/19 08/11/19 22:22 03:30 03:30 WBC 12.9 H RBC 4.66 Hgb 14.2 Hct 44.7 MCV 95.9 H MCH 30.5 MCHC 31.8 L RDW Std Deviation 56.0 H RDW Coeff of Terrie 15.8 H Plt Count 72 L MPV 12.2 H Immature Gran % (Auto) 1.200 H Neut % (Auto) 92.0 H Lymph % (Auto) 2.3 L [place] % (Auto) 3.9 Eos % (Auto) 0.3 Baso % (Auto) 0.3 Absolute Neuts (auto) 11.9 H Absolute Lymphs (auto) 0.30 L Nucleated RBC % 0 Differential Comment Platelet Estimate MOD DEC RBC Morphology Polychromasia RARE Anisocytosis 1+ Ovalocytes RARE Crenated Cell 2+ PT INR Sodium 135 L Potassium 4.8 Chloride 107 Carbon Dioxide 20.0 L Anion Gap 8 BUN 42 H Creatinine 1.90 H Estim Creat Clear Calc 36.35 Est GFR (MDRD) Af Amer 47 L Est GFR (MDRD) Non-Af 39 L BUN/Creatinine Ratio 22.1 H Glucose 92 Lactic Acid Calcium 8.0 L Total Bilirubin 3.40 H AST 34 ALT 29 Alkaline Phosphatase 235 H Troponin I B-Natriuretic Peptide Total Protein 6.5 Albumin 2.9 L Globulin 3.6 Albumin/Globulin Ratio 0.8 L Procalcitonin Urine Color Yellow Urine Clarity Clear Urine pH 5.0 Ur Specific [place] 1.020 Urine Protein 15 H Urine Glucose (UA) Normal Urine Ketones 5 H Urine Occult Blood Negative Urine Nitrite Negative Urine Bilirubin 1 H Urine Urobilinogen 4 H Ur Leukocyte Esterase 25 H Urine RBC 0-5 SEEN Urine WBC 0-5 SEEN Ur Squamous Epith Cells 0-5 SEEN Urine Bacteria 0 SEEN Hyaline Casts 25-50 SEEN Urine Mucus 1+ POC Glucose Microbiology 08/10/19 09:10 Blood Culture (Wb) - Venous Blood Culture - Preliminary 08/10/19 10:48 Mucosa - Nose Respiratory Panel (PCR) - Final 08/10/19 08:40 Mucosa - Nose Influenza Types A,B Direct FA (RAUL) - Final Clinical Impression(s) from Imaging Studies Chest X-Ray 08/10/19 09:30 IMPRESSION: Findings in keeping with CHF. Electronically Signed: Mann Prater, at 9:48 EDT , Service support , Chest X-Ray 08/10/19 16:40 IMPRESSION: Mild left lower lobe infiltrate. . Central line placement on the left with tip at the level of the atrial caval junction. No associated pneumothorax Electronically Signed: Jaylon Dorado MD at 16:54 EDT , Service support , Medical Necessity - Tobacco Use Smoking Status: Former smoker Tobacco Use: Non-smoker Assessment/Plan All Active Problems (Last Reviewed 02/03/19 @ 10:[address] Keven Willingham MD) History of coronary artery stent placement (Resolved 05/29/09) Altered mental status (Resolved) Pleural effusion, left (Resolved) Pneumonia (Resolved) RECOMMENDATIONS: 1. Initiate pressor therapy 2. Okay to discontinue barrier precautions 3. Appreciate ID input. Narrow antibiotics per ID 4. Await echocardiogram with IVC evaluation 5. Attempt to avoid fluid boluses given reported decreased EF IMPRESSIONS: 1. Septic shock secondary to left lower extremity cellulitis Patient with decreased feeling of his left lower extremity and an ulcer on the dorsum of his foot. Patient was reporting fever and cough, but this resolved with improvement in blood pressure. Blood cultures are currently growing gram-positive cocci in chains. Clinical suspicion for strep cellulitis as the etiology for decompensation. Area has been marked, but appears to have progressed subjectively. Given patient's reduced EF, concern for fluid overload leading to respiratory complications. Will initiate patient on pressor therapy. Treatment somewhat complicated by peripheral vascular disease. 2. Possible acute on chronic systolic congestive heart failure/A. fib Fluid status is unclear at this time. Patient is hypotensive, but has a pattern on chest x-ray suggestive of pulmonary edema. Patient saturating well on room air. Echocardiogram is currently pending. Cardiology is following 3. CKD stage III/hyperlipidemia/history of LV thrombus/secondary pulmonary hypertension/hypertension/possible COPD Complicates care, management, recovery and prognosis. Unclear baseline creatinine. Patient was 1.14 less than a year ago. We will continue to monitor closely. Clinical suspicion for prerenal etiology. Patient is anticoagulated at this time. Patient does have an echocardiogram pending. Patient does have an extensive smoking history in the past. Patient believes he was diagnosed with COPD in the past, but does not know his exact function. Patient does not use inhalers at baseline. TIME: 32 minutes critical care time spent addressing patient's septic shock, CHF, possible COPD, review of all data and collaboration with care team (5:30 AM to 6:30 AM) [id number]: [id number] Critical care first hour
--- NOTE | 2019-08-11 08:38 | CASEMGMT ---
RN CM Assessment Note Presentation: Sepsis due to LLE cellulitis. Chart review as pt is in respiratory isolation. Intro role of CM assessment to patient. Pt is very sleepy. Unable to participate fully in assessment at this time. PCP: Dr. Motta Preferred Pharmacy: [facility] Insurance: [facility] Prescription Benefit: yes LNOK : Uncle Nikolay Remy Living Arrangements: Pt lives alone in apartment; has aide services through waiver program for assistance during week. Transportation: [facility] [place] Waiver Program through [facility]: [facility] provides aide services 2x week, meals, life alert. DME: will evaluate. HHC: no skilled services presently. Pt has been to [facility] in past. Patient DC goals: Home DC PLAN: undetermined. RN JUAN let pt know cm would be available for dc planning when pt was able to participate more in assessment. Beto BERMEO RN ACM
--- NOTE | 2019-08-11 08:52 | CASEMGMT ---
NATALY reviewed chart, pt has been to [facility] in the past, has a human services case manager, Monika Marin. SW called [facility], they still provide aide services, twice per week three hours per day to help with ADLs, cooking and cleaning. SW called Monika([phone]), she confirms pt has aide services twice per week, had a life alert button and delivered meals. SW will continue to follow and available should plan chance to SNF. EDD Mg
[2019-08-11 09:16] LABS: Bedside Glucose 98 mg/dL (70-110)
--- NOTE | 2019-08-11 09:20 | PN_ITS ---
Reason for Visit: Follow-up on septic shock Subjective: Patient was seen and examined. He feels a little better. Denies chest pain, d izziness, palpitations. Objective: Physical exam: General: Alert, Oriented x3, Cooperative HEENT: Atraumatic, PERRLA, EOMI, Normocephalic Oral: Moist Mucosa Neck: Supple Lungs: Normal air movement, Diminished Cardiovascular: Regular rate, Regular Rhythm, Normal S1, Normal S2, No murmurs Abdomen: Bowel Sounds Present, Soft, Non Tender, Non-Distended, No Hepato- splenomegaly Extremities: Edema - +1 bilateral, lower legs, erythema of left leg, up to the thigh, left plantar wound/ulcer, no erythema or discharge Skin: No rashes, No breakdown Musculoskeletal: No Tenderness to Palpation of Joints or Extremities Neurological: Cranial nerves II-XII grossly intact Psych/Mental Status: Normal Affect, Appropriate Vitals/I&O's: Vital Signs Temp Pulse Resp BP Pulse Ox 99.1 F 80 15 85/55 L 100 08/11/19 08:00 08/11/19 09:00 08/11/19 09:00 08/11/19 09:00 08/11/19 09:00 Oxygen Flow Rate (L/min) 2 Oxygen Delivery Method Room Air Weight: 94.2 kg Body Mass Index (BMI) 34.0 Finger Stick Blood Glucose 87 Intake and Output for Last 24 Hours 08/09/19 08/10/19 08/11/19 23:59 23:59 23:59 Intake Total 5421.7 / 5421.7 1571.40 / 1571.40 Output Total 800 / 800 175 / 175 Balance 4621.7 / 4621.7 1396.40 / 1396.40 Microbiology Past 72 Hours 08/10/19 09:10 Blood Culture (Wb) - Venous Bacteria Detection (PCR) - Final Strep not Strep pneumo 08/10/19 09:10 Blood Culture (Wb) - Venous Blood Culture - Preliminary Streptococcus group C 08/10/19 10:48 Mucosa - Nose Respiratory Panel (PCR) - Final 08/10/19 08:40 Mucosa - Nose Influenza Types A,B Direct FA (RAUL) - Final Laboratory Results 08/10/19 09:10: WBC 8.7, RBC 5.25, Hgb 15.7, Hct 50.0, MCV 95.2 H, MCH 29.9, MCHC 31.4 L, RDW Std Deviation 56.4 H, RDW Coeff of Terrie 15.9 H, Plt Count 90 L, MPV 11.3, Immature Gran % (Auto) 0.300, Neut % (Auto) 91.1 H, Lymph % (Auto) 4.0 L, [place] % (Auto) 4.1, Eos % (Auto) 0.3, Baso % (Auto) 0.2, Absolute Neuts (auto) 7.9 H, Absolute Lymphs (auto) 0.35 L, Nucleated RBC % 0, Differential Comment , Platelet Estimate SLT DEC, RBC Morphology NORM C+C 08/10/19 09:10: PT Cancelled, INR Cancelled 08/10/19 09:10: Sodium Cancelled, Potassium Cancelled, Chloride Cancelled, Carbon Dioxide Cancelled, Anion Gap Cancelled, BUN Cancelled, Creatinine Cancelled, Estim Creat Clear Calc Cancelled, Est GFR (MDRD) Af Amer Cancelled, Est GFR (MDRD) Non-Af Cancelled, BUN/Creatinine Ratio Cancelled, Glucose Cancell ed, Calcium Cancelled, Total Bilirubin Cancelled, AST Cancelled, ALT Cancelled, Alkaline Phosphatase Cancelled, Total Protein Cancelled, Albumin Cancelled, Globulin Cancelled, Albumin/Globulin Ratio Cancelled 08/10/19 09:10: Lactic Acid 2.9 H* 08/10/19 09:10: B-Natriuretic Peptide 605.5 H 08/10/19 09:10: Procalcitonin 0.11 H 08/10/19 09:40: PT 19.9 H, INR 1.7 08/10/19 09:40: Sodium 140, Potassium 4.8, Chloride 110 H, Carbon Dioxide 22.0, Anion Gap 8, BUN 37 H, Creatinine 1.75 H, Estim Creat Clear Calc 39.47, Est GFR (MDRD) Af Amer 52 L, Est GFR (MDRD) Non-Af 43 L, BUN/Creatinine Ratio 21.1 H, Glucose 129 H, Calcium 8.8, Total Bilirubin 2.70 H, AST 34, ALT 25, Alkaline Phosphatase 349 H, Total Protein 7.7, Albumin 3.8, Globulin 3.9, Albumin/Globulin Ratio 1.0 08/10/19 13:35: Lactic Acid 2.0 08/10/19 13:35: Troponin I 0.030 08/10/19 18:45: Troponin I 0.022 08/10/19 21:06: POC Glucose 97 08/10/19 22:22: Urine Color Yellow, Urine Clarity Clear, Urine pH 5.0, Ur Specific [place] 1.020, Urine Protein 15 H, Urine Glucose (UA) Normal, Urine Ketones 5 H, Urine Occult Blood Negative, Urine Nitrite Negative, Urine Bilirubin 1 H, Urine Urobilinogen 4 H, Ur Leukocyte Esterase 25 H, Urine RBC 0-5 SEEN, Urine WBC 0-5 SEEN, Ur Squamous Epith Cells 0-5 SEEN, Urine Bacteria 0 SEEN, Hyaline Casts 25-50 SEEN, Urine Mucus 1+ 08/11/19 03:30: WBC 12.9 H, RBC 4.66, Hgb 14.2, Hct 44.7, MCV 95.9 H, MCH 30.5, MCHC 31.8 L, RDW Std Deviation 56.0 H, RDW Coeff of Terrie 15.8 H, Plt Count 72 L, MPV 12.2 H, Immature Gran % (Auto) 1.200 H, Neut % (Auto) 92.0 H, Lymph % (Auto) 2.3 L, [place] % (Auto) 3.9, Eos % (Auto) 0.3, Baso % (Auto) 0.3, Absolute Neuts (auto) 11.9 H, Absolute Lymphs (auto) 0.30 L, Nucleated RBC % 0, Differential Comment , Platelet Estimate MOD DEC, Polychromasia RARE, Anisocytosis 1+, Ovalocytes RARE, Crenated Cell 2+ 08/11/19 03:30: Sodium 135 L, Potassium 4.8, Chloride 107, Carbon Dioxide 20.0 L , Anion Gap 8, BUN 42 H, Creatinine 1.90 H, Estim Creat Clear Calc 36.35, Est GFR (MDRD) Af Amer 47 L, Est GFR (MDRD) Non-Af 39 L, BUN/Creatinine Ratio 22.1 H , Glucose 92, Calcium 8.0 L, Total Bilirubin 3.40 H, AST 34, ALT 29, Alkaline Phosphatase 235 H, Total Protein 6.5, Albumin 2.9 L, Globulin 3.6, Albumin/Globulin Ratio 0.8 L 08/11/19 09:11: POC Glucose 98 Current Medications Acetaminophen (Tylenol) 650 mg PO Q6H PRN PRN PRN Reason: Pain Score 1-10/Temp > 100.7 F Last Admin: 08/11/19 05:17 Dose: 650 mg Documented by: Albuterol Sulfate (Ventolin Aerosols) 2.5 mg INHALATION Q2H PRN PRN PRN Reason: SOB/Wheezing Calamine/Phenol (Calmoseptine Ointment) 1 applic TOPICAL BID [facility]; Protocol Furosemide (Lasix) 20 mg IV X1 ONE Stop: 08/11/19 09:18 Glucagon () 1 mg IM .X1 PRN PRN Reason: Hypoglycemia Heparin Sodium (Porcine) (Heparin Na) 5,000 unit SC Q8 [facility] Last Admin: 08/11/19 05:14 Dose: 5,000 unit Documented by: Piperacillin Sod/Tazobactam (Sod 3.375 gm/ Sodium Chloride) 50 mls @ 12.5 mls/hr IV Q8 [facility] Last Infusion: 08/11/19 08:26 Dose: 12.5 mls/hr Documented by: Norepinephrine Bitartrate 8 mg (/ Sodium Chloride) 250 mls @ 9.375 mls/hr CONT INF .[id number] [facility]; Protocol Last Titration: 08/11/19 09:00 Dose: 15 mcg/min, 28.1 mls/hr Documented by: Dextrose (Dextrose 10%-Water) 250 mls @ 999 mls/hr IV .Q16M PRN; Protocol PRN Reason: HYPOGLYCEMIA Insulin Human Lispro (Humalog Kwikpen (Bkc)) 0 unit SC ACHS [facility]; Protocol Last Admin: 08/10/19 21:09 Dose: Not Given Documented by: Nystatin (Mycostatin Powder) 1 applic TOPICAL BID [facility]; Protocol Ondansetron HCl (Zofran) 4 mg IV Q8H PRN PRN PRN Reason: NAUSEA/VOMITING Sodium Chloride () 10 - 40 ml IV UD PRN PRN Reason: SALINE FLUSH STROKE Vital Signs/Narrative: Vital Signs Temp Pulse Resp BP BP Pulse Ox 08/11/19 09:00 80 15 85/55 L 100 08/11/19 08:00 99.1 F 80 16 91/57 L 100 08/11/19 07:45 80 19 H 90/61 97 08/11/19 07:30 80 16 99/66 100 08/11/19 07:15 80 97/64 08/11/19 07:00 80 14 125/63 H 97 08/11/19 06:45 80 82/53 L 08/11/19 06:30 80 15 90/54 L 98 08/11/19 06:15 80 17 74/48 L 97 08/11/19 06:00 80 20 H 71/46 L 98 Medical Necessity - Tobacco Use Smoking Status: Former smoker Tobacco Use: Non-smoker Assessment/Plan All Active Problems (Last Reviewed 02/03/19 @ 10:[address] Keven Willingham MD) History of coronary artery stent placement (Resolved 05/29/09) Altered mental status (Resolved) Pleural effusion, left (Resolved) Pneumonia (Resolved) 58 year old M with a history of CAD status post stents, ischemic cardiomyopathy, previous EF of 25% in 2019, status post AICD, type II DM, hypertension, PAD status post angioplasty comes in with complaints of shortness of breath, fever, chills that started 1 week ago. 1. Septic shock/Strept Gp C bacteremia secondary to left lower leg cellulitis/pneumonia, Noted to be in septic shock at the end of yesterday, started on Levophed Repeat blood cultures are pending. Currently only on Zosyn 2. Pneumonia/upper respiratory infection, influenza/resp panel negative We will continue on IV antibiotics as above Follow-up on blood cultures 3. Acute on chronic systolic CHF, reveals EF of 15%, drop from 25% status post AICD Admitting BNPep is 605 Will give Lasix 20mg IV x 1, stop IVF 4. Left lower leg cellulitis with left plantar diabetic ulcer, acute source of infection Dry wound dressing, wound RN consult 5. Type II DM, BS are controlled Will continue with blood glucose checks with ISS 6. Chronic Atrial fibrillation, not in RVR now, will continue home meds 7. CKD stage 3, Cr slightly increased at 1.90, Will continue to monitor 8. DVT PPx- Heparin SC Inpatient E&M: [id number] Subs Hosp L2
--- NOTE | 2019-08-11 09:58 | PCM.PN.ID ---
Subjective: Feeling better, fever improved, denies cough or SOB, on pressors - Physical Exam Vitals/I&O's: Vital Signs Temp Pulse Resp BP Pulse Ox 99.1 F 80 15 85/55 L 100 08/11/19 08:00 08/11/19 09:00 08/11/19 09:00 08/11/19 09:00 08/11/19 09:00 Oxygen Flow Rate (L/min) 2 Oxygen Delivery Method Room Air Weight: 94.2 kg Body Mass Index (BMI) 34.0 Finger Stick Blood Glucose 87 Intake and Output for Last 24 Hours 08/09/19 08/10/19 08/11/19 23:59 23:59 23:59 Intake Total 5421.7 / 5421.7 1571.40 / 1571.40 Output Total 800 / 800 175 / 175 Balance 4621.7 / 4621.7 1396.40 / 1396.40 General: Alert, Cooperative, No apparent distress Lungs: Clear to auscultation, Normal air movement Cardiovascular: Regular rate, Regular Rhythm Abdomen: Soft, Non-Distended Extremities: Edema Skin: - - redness, warmth, induration on R medial leg Microbiology Past 72 Hours 08/10/19 09:10 Blood Culture (Wb) - Venous Bacteria Detection (PCR) - Final Strep not Strep pneumo 08/10/19 09:10 Blood Culture (Wb) - Venous Blood Culture - Preliminary Streptococcus group C 08/10/19 10:48 Mucosa - Nose Respiratory Panel (PCR) - Final 08/10/19 08:40 Mucosa - Nose Influenza Types A,B Direct FA (RAUL) - Final Laboratory Results 08/10/19 09:10: B-Natriuretic Peptide 605.5 H 08/10/19 09:10: Procalcitonin 0.11 H 08/10/19 09:40: PT 19.9 H, INR 1.7 08/10/19 09:40: Sodium 140, Potassium 4.8, Chloride 110 H, Carbon Dioxide 22.0, Anion Gap 8, BUN 37 H, Creatinine 1.75 H, Estim Creat Clear Calc 39.47, Est GFR (MDRD) Af Amer 52 L, Est GFR (MDRD) Non-Af 43 L, BUN/Creatinine Ratio 21.1 H, Glucose 129 H, Calcium 8.8, Total Bilirubin 2.70 H, AST 34, ALT 25, Alkaline Phosphatase 349 H, Total Protein 7.7, Albumin 3.8, Globulin 3.9, Albumin/Globulin Ratio 1.0 08/10/19 13:35: Lactic Acid 2.0 08/10/19 13:35: Troponin I 0.030 08/10/19 18:45: Troponin I 0.022 08/10/19 21:06: POC Glucose 97 08/10/19 22:22: Urine Color Yellow, Urine Clarity Clear, Urine pH 5.0, Ur Specific [place] 1.020, Urine Protein 15 H, Urine Glucose (UA) Normal, Urine Ketones 5 H, Urine Occult Blood Negative, Urine Nitrite Negative, Urine Bilirubin 1 H, Urine Urobilinogen 4 H, Ur Leukocyte Esterase 25 H, Urine RBC 0-5 SEEN, Urine WBC 0-5 SEEN, Ur Squamous Epith Cells 0-5 SEEN, Urine Bacteria 0 SEEN, Hyaline Casts 25-50 SEEN, Urine Mucus 1+ 08/11/19 03:30: WBC 12.9 H, RBC 4.66, Hgb 14.2, Hct 44.7, MCV 95.9 H, MCH 30.5, MCHC 31.8 L, RDW Std Deviation 56.0 H, RDW Coeff of Terrie 15.8 H, Plt Count 72 L, MPV 12.2 H, Immature Gran % (Auto) 1.200 H, Neut % (Auto) 92.0 H, Lymph % (Auto) 2.3 L, [place] % (Auto) 3.9, Eos % (Auto) 0.3, Baso % (Auto) 0.3, Absolute Neuts (auto) 11.9 H, Absolute Lymphs (auto) 0.30 L, Nucleated RBC % 0, Differential Comment , Platelet Estimate MOD DEC, Polychromasia RARE, Anisocytosis 1+, Ovalocytes RARE, Crenated Cell 2+ 08/11/19 03:30: Sodium 135 L, Potassium 4.8, Chloride 107, Carbon Dioxide 20.0 L, Anion Gap 8, BUN 42 H, Creatinine 1.90 H, Estim Creat Clear Calc 36.35, Est GFR (MDRD) Af Amer 47 L, Est GFR (MDRD) Non-Af 39 L, BUN/Creatinine Ratio 22.1 H, Glucose 92, Calcium 8.0 L, Total Bilirubin 3.40 H, AST 34, ALT 29, Alkaline Phosphatase 235 H, Total Protein 6.5, Albumin 2.9 L, Globulin 3.6, Albumin/Globulin Ratio 0.8 L 08/11/19 09:11: POC Glucose 98 Current Medications Acetaminophen (Tylenol) 650 mg PO Q6H PRN PRN PRN Reason: Pain Score 1-10/Temp > 100.7 F Last Admin: 08/11/19 05:17 Dose: 650 mg Documented by: Albuterol Sulfate (Ventolin Aerosols) 2.5 mg INHALATION Q2H PRN PRN PRN Reason: SOB/Wheezing Calamine/Phenol (Calmoseptine Ointment) 1 applic TOPICAL BID [facility]; Protocol Glucagon () 1 mg IM .X1 PRN PRN Reason: Hypoglycemia Heparin Sodium (Porcine) (Heparin Na) 5,000 unit SC Q8 [facility] Last Admin: 08/11/19 05:14 Dose: 5,000 unit Documented by: Piperacillin Sod/Tazobactam (Sod 3.375 gm/ Sodium Chloride) 50 mls @ 12.5 mls/hr IV Q8 [facility] Last Infusion: 08/11/19 08:26 Dose: 12.5 mls/hr Documented by: Norepinephrine Bitartrate 8 mg (/ Sodium Chloride) 250 mls @ 9.375 mls/hr CONT INF .[id number] [facility]; Protocol Last Titration: 08/11/19 09:00 Dose: 15 mcg/min, 28.1 mls/hr Documented by: Dextrose (Dextrose 10%-Water) 250 mls @ 999 mls/hr IV .Q16M PRN; Protocol PRN Reason: HYPOGLYCEMIA Insulin Human Lispro (Humalog Kwikpen (Bkc)) 0 unit SC ACHS [facility]; Protocol Last Admin: 08/10/19 21:09 Dose: Not Given Documented by: Nystatin (Mycostatin Powder) 1 applic TOPICAL BID [facility]; Protocol Ondansetron HCl (Zofran) 4 mg IV Q8H PRN PRN PRN Reason: NAUSEA/VOMITING Sodium Chloride () 10 - 40 ml IV UD PRN PRN Reason: SALINE FLUSH Medical Necessity - Tobacco Use Smoking Status: Former smoker Tobacco Use: Non-smoker Route of nutrition/ use of supplements: [] Nutritional Intake: [] IV Site: [] [place]reña Catheter: [] - Assessment/Plan Antibiotics: [] Assessment/Plan: [] septic shock with strep bacteremia in single bcx - p/w fever, myalgias, cough/SOB, lymphopenia, normal PCT, hypotension, normal wbc. Neg resp pcr panel. LLE with medial redness, induration, warmth. Has dry ulcer on bottom of L foot. Echo showed no veg, EF 10-15%. Low suspicion for COVID19 at this point. He is out of isolation. Cont zosyn, stop levaquin. Will follow, d/w Dr. Lee
[2019-08-11] MEDS: Menthol/Lanolin/Calamine/Znox 113 GM Tube 1 APPLIC TOPICAL ×2 (11:26→21:22)
[2019-08-11] MEDS: Furosemide 20 MG/2 ML VIAL IV (11:26)
[2019-08-11] MEDS: Nystatin Powder 15gm Bottle 1 APPLIC TOPICAL ×2 (11:27→21:23)
[2019-08-11 12:21] LABS: Bedside Glucose 76 mg/dL (70-110)
--- NOTE | 2019-08-11 13:57 | NURSING ---
wound photo: left foot
[2019-08-11 16:35] LABS: M R Staph aureus DNA By PCR Negative (Negative); Probe Check PASS; Specimen Processing Control PASS; Staph aureus DNA By PCR POSITIVE (Negative)
[2019-08-11] MEDS: Ondansetron 4 MG/2 ML Vial IV (18:11)
[2019-08-11 18:21] LABS: Bedside Glucose 96 mg/dL (70-110)
[2019-08-11 21:35] LABS: Bedside Glucose 103 mg/dL (70-110)
[2019-08-12] VITALS (51 sets, daily range): BP systolic 84–118; BP diastolic 51–86; PULSE 80–87; RESP 10–20; TEMP 36.6–37.3; O2SAT 95–100
[2019-08-12] MEDS: Ondansetron 4 MG/2 ML Vial IV ×3 (02:16→19:49)
[2019-08-12] MEDS: 0.9% Saline Lock 10 ML Syringe IV ×3 (02:16→19:49)
[2019-08-12] MEDS: TITRATION PARAMETER CHANGE 1 EACH IV (04:09)
[2019-08-12 04:30] LABS: Absolute Lymphocyte Count 0.45 X10^3/uL (0.83-4.51); Absolute Neutrophil Count 17.6 X10^3/uL (2.0-7.7); Basophil# 0.04 X10^3/uL; Basophil% 0.2 % (0-1); Eosinophil# 0.12 X10^3/uL; Eosinophils% 0.6 % (0-5); Hematocrit 47.4 % (40-54); Hemoglobin 15.2 g/dL (13.0-16.5); Lymphocyte # 0.45 X10^3/ul (4.0); Lymphocyte % 2.3 % (19-41); Mean Corp Hgb Conc 32.1 g/dL (32-36); Mean Corpuscular Volume 93.7 fL (80-94); Mean Platelet Vol. 11.5 fl (6.2-12.0); Monocyte# 1.06 X10^3/uL; Monocyte% 5.4 % (0-10); NRBC Flagged by Analyzer 0 % (0-5); Neutrophil # 17.56 X10^3/uL (2.7-7.7); Neutrophil % 90.2 % (47-70); POSITIVE DIFFERENTIAL YES; POSITIVE MORPHOLOGY YES; Platelet Count 116 K/mm3 (150-450); RBC Distribution Width CV 15.9 % (11.6-14.6); RBC Distribution Width SD 54.6 fl (35.1-43.9); Red Blood Count 5.06 M/mm3 (4.6-6.2); White Blood Count 19.5 K/mm3 (4.4-11.0)
[2019-08-12 04:32] LABS: Differential Indicated SCAN CRITERIA MET
[2019-08-12 04:48] LABS: ALB/GLOB Ratio 0.7 RATIO (0.9-2.4); AST(SGOT) 23 U/L (15-37); Alanine Aminotransfer ALT/SGPT 27 U/L (16-61); Albumin, Serum 2.7 g/dL (3.2-5.0); Alkaline Phosphatase 179 U/L (45-117); Anion Gap 10 (5-15); BUN 44 mg/dL (7-18); BUN/Creat Ratio 24.4 RATIO (10-20); Chloride 106 mmol/L (98-107); EST Glomerular Filtration Rate 42 mL/min (>60); Est Glom Filt Rate - Afr Amer 50 mL/min (>60); Estimated Creatinine Clearance 38.37 ml/min; Globulin 3.8 g/dL (2.2-4.2); Glucose 131 mg/dL (74-106); Potassium 4.6 mmol/L (3.5-5.1); Protein, Total 6.5 g/dL (6.4-8.2); Sodium Level 134 mmol/L (136-145)
[2019-08-12] MEDS: Heparin Injection (Vial) 5,000 UNIT/ML VIAL 5000 UNIT SC ×3 (05:11→22:56)
[2019-08-12 05:20] LABS: Anisocytosis 1+; Crenated RBC 2+; Platelet Estimate SLT DEC (ADEQ)
[2019-08-12 05:21] LABS: Dohle Bodies RARE; Polychromasia RARE
--- NOTE | 2019-08-12 06:13 | RAD_ITS ---
STUDY: X-RAY - ABDOMEN/PELVIS REASON FOR EXAM: Male, 58 years old. BLOATING, NAUSEA, VOMITING AND MID ABD PAIN TECHNIQUE: Two AP supine views of the abdomen and pelvis. COMPARISON: None. FINDINGS: An IVC filter is seen in good position. Right iliac stent is also noted. There is a straight catheter in the urinary bladder. Normal visualized lung bases. There is an unremarkable bowel gas pattern. There is no demonstrated free abdominal air. The visualized liver, spleen and kidneys are grossly normal in size and morphology. Normal soft tissue structures. Normal visualized osseous structures. RAD/Abdomen Single View (Portable) IMPRESSION: Normal x-ray examination of the abdomen and pelvis. Electronically Signed: Rachel Owens, at 8:10 EDT Tel , Service support ,
--- NOTE | 2019-08-12 06:54 | PN_ITS ---
Subjective: Patient did okay overnight. Patient did develop diarrhea, nausea and vomiting. Nursing reported watery type of bowel movements of little volume but high frequency. This was C. difficile negative, but enteric pathogens are still pending. Patient has remained on Levophed to maintain adequate blood pressures. Patient states lower extremity pain/discomfort is improving. Objective: KUB shows nonspecific gas pattern General: Alert, Oriented x3, Cooperative, No apparent distress - After emesis, - - Obese. No conversational dyspnea. HEENT: Atraumatic, PERRLA, EOMI, Normocephalic, - - No scleral icterus or injection noted Oral: Moist Mucosa, No Gingival or Mucosal Lesions/ Ulcerations Neck: Supple, No JVD, No Nodes, Trachea Midline Lungs: Clear to auscultation, Normal air movement, No rhonchi, No wheeze, No rales Cardiovascular: Regular rate, Regular Rhythm, Normal S1, Normal S2, No murmurs, No rub noted, No Gallop Abdomen: Bowel Sounds Present, Soft, Non Tender, Non-Distended, Obese Extremities: No clubbing, No cyanosis, No edema Skin: Rash Present - Appears to be regressing from previous lines Musculoskeletal: No Muscle Wasting Lymphatic: No Cervical, Supraclavicular, or Inguinal Adenopathy Neurological: Cranial nerves II-XII grossly intact, Neuro grossly intact, Motor Exam 5/5 strength throughout Psych/Mental Status: Alert and oriented to time, place, person, mood and affect Vital Signs Temp Pulse Resp BP Pulse Ox 37.3 C H 80 15 98/64 100 08/12/19 00:00 08/12/19 06:00 08/12/19 06:00 08/12/19 06:30 08/12/19 06:00 Oxygen Flow Rate (L/min) 2 Oxygen Delivery Method Room Air Weight: 97.2 kg Body Mass Index (BMI) 34.0 Finger Stick Blood Glucose 87 Intake and Output for Last 24 Hours 08/10/19 08/11/19 08/12/19 23:59 23:59 23:59 Intake Total 5421.7 / 5421.7 2306.03 / 2315.43 505.86 / 505.86 Output Total 800 / 800 825 / 825 400 / 400 Balance 4621.7 / 4621.7 1481.03 / 1490.43 105.86 / 105.86 Labs (Last 48 Hours) 08/10/19 08/10/19 08/10/19 09:10 09:10 09:10 WBC 8.7 RBC 5.25 Hgb 15.7 Hct 50.0 MCV 95.2 H MCH 29.9 MCHC 31.4 L RDW Std Deviation 56.4 H RDW Coeff of Terrie 15.9 H Plt Count 90 L MPV 11.3 Immature Gran % (Auto) 0.300 Neut % (Auto) 91.1 H Lymph % (Auto) 4.0 L [place] % (Auto) 4.1 Eos % (Auto) 0.3 Baso % (Auto) 0.2 Absolute Neuts (auto) 7.9 H Absolute Lymphs (auto) 0.35 L Nucleated RBC % 0 Differential Comment Dohle Bodies Platelet Estimate SLT DEC RBC Morphology NORM C+C Polychromasia Anisocytosis Ovalocytes Crenated Cell PT Cancelled INR Cancelled Sodium Cancelled Potassium Cancelled Chloride Cancelled Carbon Dioxide Cancelled Anion Gap Cancelled BUN Cancelled Creatinine Cancelled Estim Creat Clear Calc Cancelled Est GFR (MDRD) Af Amer Cancelled Est GFR (MDRD) Non-Af Cancelled BUN/Creatinine Ratio Cancelled Glucose Cancelled Lactic Acid Calcium Cancelled Total Bilirubin Cancelled AST Cancelled ALT Cancelled Alkaline Phosphatase Cancelled Troponin I B-Natriuretic Peptide Total Protein Cancelled Albumin Cancelled Globulin Cancelled Albumin/Globulin Ratio Cancelled Procalcitonin Urine Color Urine Clarity Urine pH Ur Specific [place] Urine Protein Urine Glucose (UA) Urine Ketones Urine Occult Blood Urine Nitrite Urine Bilirubin Urine Urobilinogen Ur Leukocyte Esterase Urine RBC Urine WBC Ur Squamous Epith Cells Urine Bacteria Hyaline Casts Urine Mucus S.aureus Protein A PCR MRSA (PCR) POC Glucose 08/10/19 08/10/19 08/10/19 09:10 09:10 09:10 WBC RBC Hgb Hct MCV MCH MCHC RDW Std Deviation RDW Coeff of Terrie Plt Count MPV Immature Gran % (Auto) Neut % (Auto) Lymph % (Auto) [place] % (Auto) Eos % (Auto) Baso % (Auto) Absolute Neuts (auto) Absolute Lymphs (auto) Nucleated RBC % Differential Comment Dohle Bodies Platelet Estimate RBC Morphology Polychromasia Anisocytosis Ovalocytes Crenated Cell PT INR Sodium Potassium Chloride Carbon Dioxide Anion Gap BUN Creatinine Estim Creat Clear Calc Est GFR (MDRD) Af Amer Est GFR (MDRD) Non-Af BUN/Creatinine Ratio Glucose Lactic Acid 2.9 H* Calcium Total Bilirubin AST ALT Alkaline Phosphatase Troponin I B-Natriuretic Peptide 605.5 H Total Protein Albumin Globulin Albumin/Globulin Ratio Procalcitonin 0.11 H Urine Color Urine Clarity Urine pH Ur Specific [place] Urine Protein Urine Glucose (UA) Urine Ketones Urine Occult Blood Urine Nitrite Urine Bilirubin Urine Urobilinogen Ur Leukocyte Esterase Urine RBC Urine WBC Ur Squamous Epith Cells Urine Bacteria Hyaline Casts Urine Mucus S.aureus Protein A PCR MRSA (PCR) POC Glucose 08/10/19 08/10/19 08/10/19 09:40 09:40 13:35 WBC RBC Hgb Hct MCV MCH MCHC RDW Std Deviation RDW Coeff of Terrie Plt Count MPV Immature Gran % (Auto) Neut % (Auto) Lymph % (Auto) [place] % (Auto) Eos % (Auto) Baso % (Auto) Absolute Neuts (auto) Absolute Lymphs (auto) Nucleated RBC % Differential Comment Dohle Bodies Platelet Estimate RBC Morphology Polychromasia Anisocytosis Ovalocytes Crenated Cell PT 19.9 H INR 1.7 Sodium 140 Potassium 4.8 Chloride 110 H Carbon Dioxide 22.0 Anion Gap 8 BUN 37 H Creatinine 1.75 H Estim Creat Clear Calc 39.47 Est GFR (MDRD) Af Amer 52 L Est GFR (MDRD) Non-Af 43 L BUN/Creatinine Ratio 21.1 H Glucose 129 H Lactic Acid 2.0 Calcium 8.8 Total Bilirubin 2.70 H AST 34 ALT 25 Alkaline Phosphatase 349 H Troponin I B-Natriuretic Peptide Total Protein 7.7 Albumin 3.8 Globulin 3.9 Albumin/Globulin Ratio 1.0 Procalcitonin Urine Color Urine Clarity Urine pH Ur Specific [place] Urine Protein Urine Glucose (UA) Urine Ketones Urine Occult Blood Urine Nitrite Urine Bilirubin Urine Urobilinogen Ur Leukocyte Esterase Urine RBC Urine WBC Ur Squamous Epith Cells Urine Bacteria Hyaline Casts Urine Mucus S.aureus Protein A PCR MRSA (PCR) POC Glucose 08/10/19 08/10/19 08/10/19 13:35 18:45 21:06 WBC RBC Hgb Hct MCV MCH MCHC RDW Std Deviation RDW Coeff of Terrie Plt Count MPV Immature Gran % (Auto) Neut % (Auto) Lymph % (Auto) [place] % (Auto) Eos % (Auto) Baso % (Auto) Absolute Neuts (auto) Absolute Lymphs (auto) Nucleated RBC % Differential Comment Dohle Bodies Platelet Estimate RBC Morphology Polychromasia Anisocytosis Ovalocytes Crenated Cell PT INR Sodium Potassium Chloride Carbon Dioxide Anion Gap BUN Creatinine Estim Creat Clear Calc Est GFR (MDRD) Af Amer Est GFR (MDRD) Non-Af BUN/Creatinine Ratio Glucose Lactic Acid Calcium Total Bilirubin AST ALT Alkaline Phosphatase Troponin I 0.030 0.022 B-Natriuretic Peptide Total Protein Albumin Globulin Albumin/Globulin Ratio Procalcitonin Urine Color Urine Clarity Urine pH Ur Specific [place] Urine Protein Urine Glucose (UA) Urine Ketones Urine Occult Blood Urine Nitrite Urine Bilirubin Urine Urobilinogen Ur Leukocyte Esterase Urine RBC Urine WBC Ur Squamous Epith Cells Urine Bacteria Hyaline Casts Urine Mucus S.aureus Protein A PCR MRSA (PCR) POC Glucose 97 08/10/19 08/11/19 08/11/19 22:22 03:30 03:30 WBC 12.9 H RBC 4.66 Hgb 14.2 Hct 44.7 MCV 95.9 H MCH 30.5 MCHC 31.8 L RDW Std Deviation 56.0 H RDW Coeff of Terrie 15.8 H Plt Count 72 L MPV 12.2 H Immature Gran % (Auto) 1.200 H Neut % (Auto) 92.0 H Lymph % (Auto) 2.3 L [place] % (Auto) 3.9 Eos % (Auto) 0.3 Baso % (Auto) 0.3 Absolute Neuts (auto) 11.9 H Absolute Lymphs (auto) 0.30 L Nucleated RBC % 0 Differential Comment Dohle Bodies Platelet Estimate MOD DEC RBC Morphology Polychromasia RARE Anisocytosis 1+ Ovalocytes RARE Crenated Cell 2+ PT INR Sodium 135 L Potassium 4.8 Chloride 107 Carbon Dioxide 20.0 L Anion Gap 8 BUN 42 H Creatinine 1.90 H Estim Creat Clear Calc 36.35 Est GFR (MDRD) Af Amer 47 L Est GFR (MDRD) Non-Af 39 L BUN/Creatinine Ratio 22.1 H Glucose 92 Lactic Acid Calcium 8.0 L Total Bilirubin 3.40 H AST 34 ALT 29 Alkaline Phosphatase 235 H Troponin I B-Natriuretic Peptide Total Protein 6.5 Albumin 2.9 L Globulin 3.6 Albumin/Globulin Ratio 0.8 L Procalcitonin Urine Color Yellow Urine Clarity Clear Urine pH 5.0 Ur Specific [place] 1.020 Urine Protein 15 H Urine Glucose (UA) Normal Urine Ketones 5 H Urine Occult Blood Negative Urine Nitrite Negative Urine Bilirubin 1 H Urine Urobilinogen 4 H Ur Leukocyte Esterase 25 H Urine RBC 0-5 SEEN Urine WBC 0-5 SEEN Ur Squamous Epith Cells 0-5 SEEN Urine Bacteria 0 SEEN Hyaline Casts 25-50 SEEN Urine Mucus 1+ S.aureus Protein A PCR MRSA (PCR) POC Glucose 08/11/19 08/11/19 08/11/19 09:11 12:14 13:15 WBC RBC Hgb Hct MCV MCH MCHC RDW Std Deviation RDW Coeff of Terrie Plt Count MPV Immature Gran % (Auto) Neut % (Auto) Lymph % (Auto) [place] % (Auto) Eos % (Auto) Baso % (Auto) Absolute Neuts (auto) Absolute Lymphs (auto) Nucleated RBC % Differential Comment Dohle Bodies Platelet Estimate RBC Morphology Polychromasia Anisocytosis Ovalocytes Crenated Cell PT INR Sodium Potassium Chloride Carbon Dioxide Anion Gap BUN Creatinine Estim Creat Clear Calc Est GFR (MDRD) Af Amer Est GFR (MDRD) Non-Af BUN/Creatinine Ratio Glucose Lactic Acid Calcium Total Bilirubin AST ALT Alkaline Phosphatase Troponin I B-Natriuretic Peptide Total Protein Albumin Globulin Albumin/Globulin Ratio Procalcitonin Urine Color Urine Clarity Urine pH Ur Specific [place] Urine Protein Urine Glucose (UA) Urine Ketones Urine Occult Blood Urine Nitrite Urine Bilirubin Urine Urobilinogen Ur Leukocyte Esterase Urine RBC Urine WBC Ur Squamous Epith Cells Urine Bacteria Hyaline Casts Urine Mucus S.aureus Protein A PCR POSITIVE H MRSA (PCR) Negative POC Glucose 98 76 08/11/19 08/11/19 08/12/19 18:15 21:20 04:20 WBC 19.5 H RBC 5.06 Hgb 15.2 Hct 47.4 MCV 93.7 MCH 30.0 MCHC 32.1 RDW Std Deviation 54.6 H RDW Coeff of Terrie 15.9 H Plt Count 116 L MPV 11.5 Immature Gran % (Auto) 1.300 H Neut % (Auto) 90.2 H Lymph % (Auto) 2.3 L [place] % (Auto) 5.4 Eos % (Auto) 0.6 Baso % (Auto) 0.2 Absolute Neuts (auto) 17.6 H Absolute Lymphs (auto) 0.45 L Nucleated RBC % 0 Differential Comment Dohle Bodies RARE Platelet Estimate SLT DEC RBC Morphology Polychromasia RARE Anisocytosis 1+ Ovalocytes Crenated Cell 2+ PT INR Sodium Potassium Chloride Carbon Dioxide Anion Gap BUN Creatinine Estim Creat Clear Calc Est GFR (MDRD) Af Amer Est GFR (MDRD) Non-Af BUN/Creatinine Ratio Glucose Lactic Acid Calcium Total Bilirubin AST ALT Alkaline Phosphatase Troponin I B-Natriuretic Peptide Total Protein Albumin Globulin Albumin/Globulin Ratio Procalcitonin Urine Color Urine Clarity Urine pH Ur Specific [place] Urine Protein Urine Glucose (UA) Urine Ketones Urine Occult Blood Urine Nitrite Urine Bilirubin Urine Urobilinogen Ur Leukocyte Esterase Urine RBC Urine WBC Ur Squamous Epith Cells Urine Bacteria Hyaline Casts Urine Mucus S.aureus Protein A PCR MRSA (PCR) POC Glucose 96 103 08/12/19 04:20 WBC RBC Hgb Hct MCV MCH MCHC RDW Std Deviation RDW Coeff of Terrie Plt Count MPV Immature Gran % (Auto) Neut % (Auto) Lymph % (Auto) [place] % (Auto) Eos % (Auto) Baso % (Auto) Absolute Neuts (auto) Absolute Lymphs (auto) Nucleated RBC % Differential Comment Dohle Bodies Platelet Estimate RBC Morphology Polychromasia Anisocytosis Ovalocytes Crenated Cell PT INR Sodium 134 L Potassium 4.6 Chloride 106 Carbon Dioxide 18.0 L Anion Gap 10 BUN 44 H Creatinine 1.80 H Estim Creat Clear Calc 38.37 Est GFR (MDRD) Af Amer 50 L Est GFR (MDRD) Non-Af 42 L BUN/Creatinine Ratio 24.4 H Glucose 131 H Lactic Acid Calcium 8.0 L Total Bilirubin 2.80 H AST 23 ALT 27 Alkaline Phosphatase 179 H Troponin I B-Natriuretic Peptide Total Protein 6.5 Albumin 2.7 L Globulin 3.8 Albumin/Globulin Ratio 0.7 L Procalcitonin Urine Color Urine Clarity Urine pH Ur Specific [place] Urine Protein Urine Glucose (UA) Urine Ketones Urine Occult Blood Urine Nitrite Urine Bilirubin Urine Urobilinogen Ur Leukocyte Esterase Urine RBC Urine WBC Ur Squamous Epith Cells Urine Bacteria Hyaline Casts Urine Mucus S.aureus Protein A PCR MRSA (PCR) POC Glucose Microbiology 08/11/19 19:50 Stool C. difficile DNA Amplification - Final 08/10/19 09:10 Blood Culture (Wb) - Venous Bacteria Detection (PCR) - Final Strep not Strep pneumo 08/10/19 09:10 Blood Culture (Wb) - Venous Blood Culture - Preliminary Streptococcus group C 08/10/19 10:48 Mucosa - Nose Respiratory Panel (PCR) - Final 08/10/19 08:40 Mucosa - Nose Influenza Types A,B Direct FA (RAUL) - Final Medical Necessity - Tobacco Use Smoking Status: Former smoker Tobacco Use: Non-smoker Assessment/Plan All Active Problems (Last Reviewed 02/03/19 @ 10:[address] Keven Willingham MD) History of coronary artery stent placement (Resolved 05/29/09) Altered mental status (Resolved) Pleural effusion, left (Resolved) Pneumonia (Resolved) RECOMMENDATIONS: 1. Wean pressor therapy 2. Okay to discontinue barrier precautions 3. Appreciate ID input. Narrow antibiotics per ID 4. Zofran as needed for nausea 5. Attempt to avoid fluid boluses given reported decreased EF IMPRESSIONS: 1. Septic shock secondary to left lower extremity cellulitis Patient with decreased feeling of his left lower extremity and an ulcer on the dorsum of his foot. Patient was reporting fever and cough, but this resolved with improvement in blood pressure. Blood cultures are currently g rowing gram-positive cocci in chains. There appears to be some regression of rash on previously marked areas. Given patient's reduced EF, concern for fluid overload leading to respiratory complications. Will continue patient on pressor therapy. Treatment somewhat complicated by peripheral vascular disease. 2. Possible acute on chronic systolic congestive heart failure/A. fib Fluid status is unclear at this time. Patient is hypotensive, but has a pattern on chest x-ray suggestive of pulmonary edema. Patient saturating well on room air. Patient with significant decrease in functioning. Unclear if this is related to sepsis versus progression of heart disease. 3. CKD stage III/hyperlipidemia/history of LV thrombus/secondary pulmonary hypertension/hypertension/possible COPD Complicates care, management, recovery and prognosis. Unclear baseline creatinine. Patient was 1.14 less than a year ago. We will continue to monitor closely. Clinical suspicion for prerenal etiology. Patient is anticoagulated at this time. Patient does have an extensive smoking history in the past. Patient believes he was diagnosed with COPD in the past, but does not know his exact function. Patient does not use inhalers at baseline. 4. Nausea/vomiting/diarrhea Unclear etiology. Patient is on pressor therapy with a history of peripheral vascular disease. Some concern for possible decreased bowel perfusion leading to current symptomatology. No bloody bowel movements have been noted. Treat empirically for now. KUB is not suggestive of an ileus. TIME: 35 minutes critical care time spent addressing patient's septic shock, CHF, possible COPD, review of all data and collaboration with care team (5:20 AM to 6:35 AM) [id number]: [id number] Critical care first hour
[2019-08-12 07:20] LABS: Bedside Glucose 122 mg/dL (70-110)
--- NOTE | 2019-08-12 08:31 | PN_ITS ---
Reason for Visit: Follow-up on septic shock Subjective: Patient was seen and examined. He has nausea with episodes of vomiting with di arrhea. C. diff is negative. Objective: Physical exam: General: Alert, Oriented x3, Cooperative HEENT: Atraumatic, PERRLA, EOMI, Normocephalic Oral: Moist Mucosa Neck: Supple Lungs: Normal air movement, Diminished Cardiovascular: Regular rate, Regular Rhythm, Normal S1, Normal S2, No murmurs Abdomen: Bowel Sounds Present, Soft, Non Tender, Non-Distended, No Hepato- splenomegaly Extremities: Edema - +1 bilateral, lower legs, erythema of left leg, up to the thigh, left plantar wound/ulcer, no erythema or discharge Skin: No rashes, No breakdown Musculoskeletal: No Tenderness to Palpation of Joints or Extremities Neurological: Cranial nerves II-XII grossly intact Psych/Mental Status: Normal Affect, Appropriate Vitals/I&O's: Vital Signs Temp Pulse Resp BP Pulse Ox 99.2 F H 80 16 101/71 99 08/12/19 00:00 08/12/19 08:00 08/12/19 07:00 08/12/19 07:15 08/12/19 07:00 Oxygen Flow Rate (L/min) 2 Oxygen Delivery Method Room Air Weight: 97.2 kg Body Mass Index (BMI) 34.0 Finger Stick Blood Glucose 87 Intake and Output for Last 24 Hours 08/10/19 08/11/19 08/12/19 23:59 23:59 23:59 Intake Total 5421.7 / 5421.7 2306.03 / 2315.43 511.49 / 511.49 Output Total 800 / 800 825 / 825 400 / 400 Balance 4621.7 / 4621.7 1481.03 / 1490.43 111.49 / 111.49 Microbiology Past 72 Hours 08/10/19 09:10 Blood Culture (Wb) - Venous Bacteria Detection (PCR) - Final Strep not Strep pneumo 08/10/19 09:10 Blood Culture (Wb) - Venous Blood Culture - Preliminary Streptococcus group C 08/11/19 19:50 Stool C. difficile DNA Amplification - Final 08/10/19 10:48 Mucosa - Nose Respiratory Panel (PCR) - Final 08/10/19 08:40 Mucosa - Nose Influenza Types A,B Direct FA (RAUL) - Final Laboratory Results 08/11/19 09:11: POC Glucose 98 08/11/19 12:14: POC Glucose 76 08/11/19 13:15: S.aureus Protein A PCR POSITIVE H, MRSA (PCR) Negative 08/11/19 18:15: POC Glucose 96 08/11/19 21:20: POC Glucose 103 08/12/19 04:20: WBC 19.5 H, RBC 5.06, Hgb 15.2, Hct 47.4, MCV 93.7, MCH 30.0, MCHC 32.1, RDW Std Deviation 54.6 H, RDW Coeff of Terrie 15.9 H, Plt Count 116 L, MPV 11.5, Immature Gran % (Auto) 1.300 H, Neut % (Auto) 90.2 H, Lymph % (Auto) 2.3 L, [place] % (Auto) 5.4, Eos % (Auto) 0.6, Baso % (Auto) 0.2, Absolute Neuts (auto) 17.6 H, Absolute Lymphs (auto) 0.45 L, Nucleated RBC % 0, Differential Comment , Dohle Bodies RARE, Platelet Estimate SLT DEC, Polychromasia RARE, Anisocytosis 1+, Crenated Cell 2+ 08/12/19 04:20: Sodium 134 L, Potassium 4.6, Chloride 106, Carbon Dioxide 18.0 L , Anion Gap 10, BUN 44 H, Creatinine 1.80 H, Estim Creat Clear Calc 38.37, Est GFR (MDRD) Af Amer 50 L, Est GFR (MDRD) Non-Af 42 L, BUN/Creatinine Ratio 24.4 H , Glucose 131 H, Calcium 8.0 L, Total Bilirubin 2.80 H, AST 23, ALT 27, Alkaline Phosphatase 179 H, Total Protein 6.5, Albumin 2.7 L, Globulin 3.8, Albumin/Globulin Ratio 0.7 L 08/12/19 07:13: POC Glucose 122 H Current Medications Acetaminophen (Tylenol) 650 mg PO Q6H PRN PRN PRN Reason: Pain Score 1-10/Temp > 100.7 F Last Admin: 08/11/19 05:17 Dose: 650 mg Documented by: Albuterol Sulfate (Ventolin Aerosols) 2.5 mg INHALATION Q2H PRN PRN PRN Reason: SOB/Wheezing Calamine/Phenol (Calmoseptine Ointment) 1 applic TOPICAL BID [facility]; Protocol Last Admin: 08/11/19 21:22 Dose: 1 applicatio Documented by: Glucagon () 1 mg IM .X1 PRN PRN Reason: Hypoglycemia Heparin Sodium (Porcine) (Heparin Na) 5,000 unit SC Q8 [facility] Last Admin: 08/12/19 05:11 Dose: 5,000 unit Documented by: Piperacillin Sod/Tazobactam (Sod 3.375 gm/ Sodium Chloride) 50 mls @ 12.5 mls/hr IV Q8 [facility] Last Admin: 08/12/19 05:11 Dose: 12.5 mls/hr Documented by: Norepinephrine Bitartrate 8 mg (/ Sodium Chloride) 250 mls @ 9.375 mls/hr CONT INF .[id number] [facility]; Protocol Last Titration: 08/12/19 07:15 Dose: 4 mcg/min, 7.5 mls/hr Documented by: Dextrose (Dextrose 10%-Water) 250 mls @ 999 mls/hr IV .Q16M PRN; Protocol PRN Reason: HYPOGLYCEMIA Insulin Human Lispro (Humalog Kwikpen (Bkc)) 0 unit SC ACHS [facility]; Protocol Last Admin: 08/12/19 07:58 Dose: Not Given Documented by: Nystatin (Mycostatin Powder) 1 applic TOPICAL BID [facility]; Protocol Last Admin: 08/11/19 21:23 Dose: 1 applicatio Documented by: Ondansetron HCl (Zofran) 4 mg IV Q8H PRN PRN PRN Reason: NAUSEA/VOMITING Last Admin: 08/12/19 02:16 Dose: 4 mg Documented by: Sodium Chloride () 10 - 40 ml IV UD PRN PRN Reason: SALINE FLUSH Last Admin: 08/12/19 02:16 Dose: 20 ml Documented by: STROKE Vital Signs/Narrative: Vital Signs Pulse Resp BP Pulse Ox 08/12/19 08:00 80 08/12/19 07:15 87 101/71 08/12/19 07:00 80 16 116/82 H 99 08/12/19 06:30 98/64 08/12/19 06:15 97/63 08/12/19 06:00 80 15 94/58 L 100 08/12/19 05:45 112/77 08/12/19 05:30 96/59 L 08/12/19 05:15 98/52 L 08/12/19 05:00 80 15 100/65 100 08/12/19 04:45 96/60 Medical Necessity - Tobacco Use Smoking Status: Former smoker Tobacco Use: Non-smoker Assessment/Plan All Active Problems (Last Reviewed 02/03/19 @ 10:[address] Keven Willingham MD) History of coronary artery stent placement (Resolved 05/29/09) Altered mental status (Resolved) Pleural effusion, left (Resolved) Pneumonia (Resolved) 58 year old M with a history of CAD status post stents, ischemic cardiomyopathy, previous EF of 25% in 2019, status post AICD, type II DM, hypertension, PAD status post angioplasty comes in with complaints of shortness of breath, fever, chills that started 1 week ago. 1. Septic shock/Strept Gp C bacteremia secondary to left lower leg cellulitis/pneumonia, WBC is elevated, remains on Levophed. Repeat blood cultures are negative. Continue on the Zosyn (day 3) 2. Pneumonia/upper respiratory infection, influenza/resp panel negative We will continue on IV antibiotics as above 3. Acute on chronic systolic CHF, reveals EF of 15%, drop from 25% status post AICD Admitting BNPep is 605, will continue to monitor whilst on Levophed. Not ACEI - hypotensive now Will resume lasix when better 4. Left lower leg cellulitis with left plantar diabetic ulcer, this is likely the source of infection wound RN consult 5. Type II DM, BS are controlled Will continue with blood glucose checks with ISS 6. Chronic Atrial fibrillation, not in RVR now, will continue home meds 7. CKD stage 3, Cr about his baseline Will continue to monitor 8. DVT PPx- Heparin SC Inpatient E&M: 10144 Subs Hosp L3
[2019-08-12] MEDS: Menthol/Lanolin/Calamine/Znox 113 GM Tube 1 APPLIC TOPICAL ×2 (10:36→22:56)
[2019-08-12] MEDS: Nystatin Powder 15gm Bottle 1 APPLIC TOPICAL ×2 (10:37→22:56)
[2019-08-12 10:55] LABS: Bedside Glucose 124 mg/dL (70-110)
--- NOTE | 2019-08-12 11:04 | CASEMGMT ---
NATALY received a call from Rossi Salcedo, revenue cycle manager who assists with transitions of care with patients. NATALY called Rossi back([phone]), updated her and explained that at present there is not a discharge plan in place. EDD Mg
--- NOTE | 2019-08-12 14:27 | US_ITS ---
STUDY: ABDOMINAL ULTRASOUND - RIGHT UPPER QUADRANT REASON FOR VISIT: Male, 58 years old FEVER,NEAUSEA TECHNIQUE: Ultrasound evaluation of the right upper quadrant was performed with real-time and static metcalf-scale imaging. TECHNICAL QUALITY: Limited. Examination limited due to a combination of factors including patient condition and bowel gas. COMPARISON: None. FINDINGS: Liver: The liver measures 19.8 cm. There is normal echogenicity of the liver. The bile ducts are within normal limits. There is hepatic color flow. The direction of portal flow is hepatopetal. There is no demonstrated mass lesion. Borderline irregularity of liver margins demonstrated. Gallbladder: The patient is status post cholecystectomy. Common Bile Duct (C.B.D.): The common bile duct measures 6.3 mm. Pancreas: There is suboptimal visualization of the pancreas. Right Kidney: Normal size of the right kidney. The right kidney measures 11.8 x 7.4 x 4.8 cm. Normal renal cortex. The right cortex measures 1.4 cm. There is no demonstrated renal mass or cyst. There is no right hydronephrosis. There is questionable small amount of fluid outlining the right pleura, cannot exclude pleural effusion on the right. US/Abdomen Limited IMPRESSION: Status post cholecystectomy with no distinct biliary dilatation. Slight irregularity throughout the liver margins which does not disc with very early liver disease, clinical correlation recommended. Remainder of the right upper quadrant ultrasound otherwise unremarkable. Possible small right-sided pleural effusion Electronically Signed: Sydnee Bartlett MD at 1:10 EDT , Service support ,
--- NOTE | 2019-08-12 14:29 | PCM.PN.ID ---
Subjective: C/o nausea and vomiting. Some loose stool, improving. No fever, no abd pain. No cough or SOB. No pain in leg. - Physical Exam Vitals/I&O's: Vital Signs Temp Pulse Resp BP Pulse Ox 98.5 F 80 16 96/68 100 08/12/19 12:00 08/12/19 13:01 08/12/19 13:01 08/12/19 13:30 08/12/19 13:01 Oxygen Flow Rate (L/min) 2 Oxygen Delivery Method Room Air Weight: 97.2 kg Body Mass Index (BMI) 34.0 Finger Stick Blood Glucose 87 Intake and Output for Last 24 Hours 08/10/19 08/11/19 08/12/19 23:59 23:59 23:59 Intake Total 5421.7 / 5421.7 2306.03 / 2315.43 595.12 / 595.12 Output Total 800 / 800 825 / 825 400 / 400 Balance 4621.7 / 4621.7 1481.03 / 1490.43 195.12 / 195.12 General: Alert, Cooperative, No apparent distress Lungs: Clear to auscultation, Normal air movement Cardiovascular: Regular rate, Regular Rhythm Abdomen: Soft, Non Tender, Non-Distended Skin: Rash Present - medial LLE Microbiology Past 72 Hours 08/11/19 19:50 Stool Enteric Bacteriology - Final 08/11/19 13:15 Wound - Left Foot Gram Stain - Final 08/11/19 13:15 Wound - Left Foot Wound Culture - Preliminary Mixed Gram Positive Organisms 08/10/19 09:25 Blood Culture (Wb) - Right Hand Blood Culture - Preliminary No growth in 48 hours. 08/10/19 09:10 Blood Culture (Wb) - Venous Bacteria Detection (PCR) - Final Strep not Strep pneumo 08/10/19 09:10 Blood Culture (Wb) - Venous Blood Culture - Preliminary Streptococcus group C 08/11/19 19:50 Stool C. difficile DNA Amplification - Final 08/10/19 10:48 Mucosa - Nose Respiratory Panel (PCR) - Final 08/10/19 08:40 Mucosa - Nose Influenza Types A,B Direct FA (RAUL) - Final Laboratory Results 08/11/19 13:15: S.aureus Protein A PCR POSITIVE H, MRSA (PCR) Negative 08/11/19 18:15: POC Glucose 96 08/11/19 21:20: POC Glucose 103 08/12/19 04:20: WBC 19.5 H, RBC 5.06, Hgb 15.2, Hct 47.4, MCV 93.7, MCH 30.0, MCHC 32.1, RDW Std Deviation 54.6 H, RDW Coeff of Terrie 15.9 H, Plt Count 116 L, MPV 11.5, Immature Gran % (Auto) 1.300 H, Neut % (Auto) 90.2 H, Lymph % (Auto) 2.3 L, [place] % (Auto) 5.4, Eos % (Auto) 0.6, Baso % (Auto) 0.2, Absolute Neuts (auto) 17.6 H, Absolute Lymphs (auto) 0.45 L, Nucleated RBC % 0, Differential Comment , Dohle Bodies RARE, Platelet Estimate SLT DEC, Polychromasia RARE, Anisocytosis 1+, Crenated Cell 2+ 08/12/19 04:20: Sodium 134 L, Potassium 4.6, Chloride 106, Carbon Dioxide 18.0 L, Anion Gap 10, BUN 44 H, Creatinine 1.80 H, Estim Creat Clear Calc 38.37, Est GFR (MDRD) Af Amer 50 L, Est GFR (MDRD) Non-Af 42 L, BUN/Creatinine Ratio 24.4 H, Glucose 131 H, Calcium 8.0 L, Total Bilirubin 2.80 H, AST 23, ALT 27, Alkaline Phosphatase 179 H, Total Protein 6.5, Albumin 2.7 L, Globulin 3.8, Albumin/Globulin Ratio 0.7 L 08/12/19 07:13: POC Glucose 122 H 08/12/19 10:42: POC Glucose 124 H Current Medications Acetaminophen (Tylenol) 650 mg PO Q6H PRN PRN PRN Reason: Pain Score 1-10/Temp > 100.7 F Last Admin: 08/11/19 05:17 Dose: 650 mg Documented by: Albuterol Sulfate (Ventolin Aerosols) 2.5 mg INHALATION Q2H PRN PRN PRN Reason: SOB/Wheezing Calamine/Phenol (Calmoseptine Ointment) 1 applic TOPICAL BID [facility]; Protocol Last Admin: 08/12/19 10:36 Dose: 1 applicatio Documented by: Glucagon () 1 mg IM .X1 PRN PRN Reason: Hypoglycemia Heparin Sodium (Porcine) (Heparin Na) 5,000 unit SC Q8 [facility] Last Admin: 08/12/19 13:27 Dose: 5,000 unit Documented by: Piperacillin Sod/Tazobactam (Sod 3.375 gm/ Sodium Chloride) 50 mls @ 12.5 mls/hr IV Q8 [facility] Last Admin: 08/12/19 13:21 Dose: 12.5 mls/hr Documented by: Norepinephrine Bitartrate 8 mg (/ Sodium Chloride) 250 mls @ 9.375 mls/hr CONT INF .[id number] [facility]; Protocol Last Titration: 08/12/19 13:30 Dose: 2 mcg/min, 3.8 mls/hr Documented by: Dextrose (Dextrose 10%-Water) 250 mls @ 999 mls/hr IV .Q16M PRN; Protocol PRN Reason: HYPOGLYCEMIA Insulin Human Lispro (Humalog Kwikpen (Bkc)) 0 unit SC ACHS [facility]; Protocol Last Admin: 08/12/19 11:02 Dose: Not Given Documented by: Nutritional Formula (Tomás - [place] Flavor) [facility] Nystatin (Mycostatin Powder) 1 applic TOPICAL BID [facility]; Protocol Last Admin: 08/12/19 10:37 Dose: 1 applicatio Documented by: Ondansetron HCl (Zofran) 4 mg IV Q8H PRN PRN PRN Reason: NAUSEA/VOMITING Last Admin: 08/12/19 10:37 Dose: 4 mg Documented by: Sodium Chloride () 10 - 40 ml IV UD PRN PRN Reason: SALINE FLUSH Last Admin: 08/12/19 10:37 Dose: 20 ml Documented by: Medical Necessity - Tobacco Use Smoking Status: Former smoker Tobacco Use: Non-smoker Route of nutrition/ use of supplements: [] Nutritional Intake: [] IV Site: [] Ureña Catheter: [] - Assessment/Plan Antibiotics: [] Assessment/Plan: [] septic shock with strep seen in single bcx - p/w fever, myalgias, cough/SOB, lymphopenia, normal PCT, hypotension, normal wbc. Neg resp pcr panel. LLE with medial redness, induration, warmth, but not tender. Has dry ulcer on bottom of L foot. Echo showed no veg, EF 10-15%. Low suspicion for COVID19 at this point. He is out of isolation. Cont zosyn. Main complaint currently is n/v. Cdiff was neg. Bili remains high, alk ph trending down. Will check RUQ u/s. Will follow
[2019-08-12 17:30] LABS: Bedside Glucose 143 mg/dL (70-110)
[2019-08-13] VITALS (19 sets, daily range): BP systolic 88–113; BP diastolic 59–83; PULSE 80–87; RESP 11–18; TEMP 36.4–37.1; O2SAT 97–100
--- NOTE | 2019-08-13 00:11 | EKG12_ITS ---
Test Reason : CHEST PAIN Blood Pressure : / mmHG Vent. Rate : 080 BPM Atrial Rate : 064 BPM P-R Int : 000 ms QRS Dur : 166 ms QT Int : 472 ms P-R-T Axes : 000 251 043 degrees QTc Int : 544 ms Electronic ventricular pacemaker When compared with ECG of 10-AUG-2019 13:45, MANUAL COMPARISON REQUIRED, DATA IS UNCONFIRMED Confirmed by JESI SMITH, DANYEL ([id number]), publications editor CHRISTIAN HUIZAR ([id number]) on 08/23/2019 10:22:30 AM Referred By: Danyel Willingham Confirmed By:DANYEL WILLINGHAM MD
[2019-08-13 02:56] LABS: Bedside Glucose 130 mg/dL (70-110)
[2019-08-13] MEDS: Ondansetron 4 MG/2 ML Vial IV ×2 (04:03→16:46)
[2019-08-13 04:19] LABS: Absolute Lymphocyte Count 0.46 X10^3/uL (0.83-4.51); Absolute Neutrophil Count 12.6 X10^3/uL (2.0-7.7); Basophil# 0.02 X10^3/uL; Basophil% 0.1 % (0-1); Hematocrit 44.5 % (40-54); Hemoglobin 14.4 g/dL (13.0-16.5); Lymphocyte # 0.46 X10^3/ul (4.0); Lymphocyte % 3.3 % (19-41); Mean Corp Hgb Conc 32.4 g/dL (32-36); Mean Corpuscular Hgb 29.9 pg (27.0-32.0); Mean Corpuscular Volume 92.3 fL (80-94); Mean Platelet Vol. 11.4 fl (6.2-12.0); Monocyte% 4.3 % (0-10); NRBC Flagged by Analyzer 0 % (0-5); Neutrophil # 12.57 X10^3/uL (2.7-7.7); Neutrophil % 90.9 % (47-70); POSITIVE COUNT YES; POSITIVE DIFFERENTIAL YES; POSITIVE MORPHOLOGY YES; Platelet Count 93 K/mm3 (150-450); RBC Distribution Width CV 15.7 % (11.6-14.6); RBC Distribution Width SD 53.2 fl (35.1-43.9); Red Blood Count 4.82 M/mm3 (4.6-6.2); White Blood Count 13.8 K/mm3 (4.4-11.0)
[2019-08-13 04:24] LABS: Differential Indicated SCAN CRITERIA MET
[2019-08-13 04:35] LABS: Anion Gap 9 (5-15); BUN 47 mg/dL (7-18); BUN/Creat Ratio 28.5 RATIO (10-20); Calcium,Total 8.4 mg/dL (8.5-10.1); Chloride 107 mmol/L (98-107); Creatinine, Serum 1.65 mg/dL (0.70-1.30); EST Glomerular Filtration Rate 46 mL/min (>60); Est Glom Filt Rate - Afr Amer 56 mL/min (>60); Estimated Creatinine Clearance 41.86 ml/min; Glucose 132 mg/dL (74-106); Magnesium 2.2 mg/dL (1.6-2.6); Phosphorus 2.6 mg/dL (2.5-4.9); Potassium 4.3 mmol/L (3.5-5.1); Sodium Level 137 mmol/L (136-145)
[2019-08-13 04:38] LABS: Anisocytosis 1+; Crenated RBC 3+; Platelet Estimate MOD DEC (ADEQ)
[2019-08-13] MEDS: Heparin Injection (Vial) 5,000 UNIT/ML VIAL 5000 UNIT SC ×3 (06:34→22:03)
--- NOTE | 2019-08-13 06:56 | PCM.PN.INT ---
Subjective: Patient did well overnight. Patient has been off of Levophed overnight. Patient did have a Ureña malfunction and had to have it removed. Patient was able to urinate spontaneously following removal, so it was not replaced. Patient has had some nausea, but no vomiting was noted overnight. Patient remained stable on room air. General: Alert, Oriented x3, Cooperative, No apparent distress, Well developed, Well nourished, - - No conversational dyspnea. Speaking in full sentences. HEENT: Atraumatic, PERRLA, EOMI, Normocephalic, - - No scleral icterus or injection noted Oral: Moist Mucosa, No Gingival or Mucosal Lesions/ Ulcerations Neck: Supple, No JVD, No Nodes, Trachea Midline Lungs: Clear to auscultation, No rhonchi, No wheeze, No rales, - - Symmetric expansion. Cardiovascular: Regular rate, Regular Rhythm, Normal S1, Normal S2, No murmurs, No rub noted, No Gallop Abdomen: Bowel Sounds Present, Soft, Distended - Slightly, Tender - Mild, but localized to the rectus musculature, - - No guarding or rebound tenderness appreciated. Extremities: No clubbing, No cyanosis, Edema Skin: Rash Present - Continues to improve Musculoskeletal: No Tenderness to Palpation of Joints or Extremities Lymphatic: No Cervical, Supraclavicular, or Inguinal Adenopathy Neurological: Cranial nerves II-XII grossly intact, Neuro grossly intact, Motor Exam 5/5 strength throughout Psych/Mental Status: Alert and oriented to time, place, person, mood and affect Vital Signs Temp Pulse Resp BP Pulse Ox 36.7 C 80 15 92/59 L 99 08/13/19 04:00 08/13/19 06:00 08/13/19 06:00 08/13/19 06:00 08/13/19 06:00 Oxygen Flow Rate (L/min) 2 Oxygen Delivery Method Room Air Weight: 96.2 kg Body Mass Index (BMI) 34.0 Finger Stick Blood Glucose 87 Intake and Output for Last 24 Hours 08/11/19 08/12/19 08/13/19 23:59 23:59 23:59 Intake Total 2306.03 / 2315.43 746.55 / 879.88 170.00 / 170.00 Output Total 825 / 825 800 / 875 225 / 225 Balance 1481.03 / 1490.43 -53.45 / 4.88 -55.00 / -55.00 Labs (Last 48 Hours) 08/11/19 08/11/19 08/11/19 09:11 12:14 13:15 WBC RBC Hgb Hct MCV MCH MCHC RDW Std Deviation RDW Coeff of Terrie Plt Count MPV Immature Gran % (Auto) Neut % (Auto) Lymph % (Auto) [place] % (Auto) Eos % (Auto) Baso % (Auto) Absolute Neuts (auto) Absolute Lymphs (auto) Nucleated RBC % Differential Comment Dohle Bodies Platelet Estimate Polychromasia Anisocytosis Crenated Cell Sodium Potassium Chloride Carbon Dioxide Anion Gap BUN Creatinine Estim Creat Clear Calc Est GFR (MDRD) Af Amer Est GFR (MDRD) Non-Af BUN/Creatinine Ratio Glucose Calcium Phosphorus Magnesium Total Bilirubin AST ALT Alkaline Phosphatase Troponin I Total Protein Albumin Globulin Albumin/Globulin Ratio S.aureus Protein A PCR POSITIVE H MRSA (PCR) Negative POC Glucose 98 76 08/11/19 08/11/19 08/12/19 18:15 21:20 04:20 WBC 19.5 H RBC 5.06 Hgb 15.2 Hct 47.4 MCV 93.7 MCH 30.0 MCHC 32.1 RDW Std Deviation 54.6 H RDW Coeff of Terrie 15.9 H Plt Count 116 L MPV 11.5 Immature Gran % (Auto) 1.300 H Neut % (Auto) 90.2 H Lymph % (Auto) 2.3 L [place] % (Auto) 5.4 Eos % (Auto) 0.6 Baso % (Auto) 0.2 Absolute Neuts (auto) 17.6 H Absolute Lymphs (auto) 0.45 L Nucleated RBC % 0 Differential Comment Dohle Bodies RARE Platelet Estimate SLT DEC Polychromasia RARE Anisocytosis 1+ Crenated Cell 2+ Sodium Potassium Chloride Carbon Dioxide Anion Gap BUN Creatinine Estim Creat Clear Calc Est GFR (MDRD) Af Amer Est GFR (MDRD) Non-Af BUN/Creatinine Ratio Glucose Calcium Phosphorus Magnesium Total Bilirubin AST ALT Alkaline Phosphatase Troponin I Total Protein Albumin Globulin Albumin/Globulin Ratio S.aureus Protein A PCR MRSA (PCR) POC Glucose 96 103 08/12/19 08/12/19 08/12/19 04:20 07:13 10:42 WBC RBC Hgb Hct MCV MCH MCHC RDW Std Deviation RDW Coeff of Terrie Plt Count MPV Immature Gran % (Auto) Neut % (Auto) Lymph % (Auto) [place] % (Auto) Eos % (Auto) Baso % (Auto) Absolute Neuts (auto) Absolute Lymphs (auto) Nucleated RBC % Differential Comment Dohle Bodies Platelet Estimate Polychromasia Anisocytosis Crenated Cell Sodium 134 L Potassium 4.6 Chloride 106 Carbon Dioxide 18.0 L Anion Gap 10 BUN 44 H Creatinine 1.80 H Estim Creat Clear Calc 38.37 Est GFR (MDRD) Af Amer 50 L Est GFR (MDRD) Non-Af 42 L BUN/Creatinine Ratio 24.4 H Glucose 131 H Calcium 8.0 L Phosphorus Magnesium Total Bilirubin 2.80 H AST 23 ALT 27 Alkaline Phosphatase 179 H Troponin I Total Protein 6.5 Albumin 2.7 L Globulin 3.8 Albumin/Globulin Ratio 0.7 L S.aureus Protein A PCR MRSA (PCR) POC Glucose 122 H 124 H 08/12/19 08/12/19 08/13/19 17:24 22:58 00:45 WBC RBC Hgb Hct MCV MCH MCHC RDW Std Deviation RDW Coeff of Terrie Plt Count MPV Immature Gran % (Auto) Neut % (Auto) Lymph % (Auto) [place] % (Auto) Eos % (Auto) Baso % (Auto) Absolute Neuts (auto) Absolute Lymphs (auto) Nucleated RBC % Differential Comment Dohle Bodies Platelet Estimate Polychromasia Anisocytosis Crenated Cell Sodium Potassium Chloride Carbon Dioxide Anion Gap BUN Creatinine Estim Creat Clear Calc Est GFR (MDRD) Af Amer Est GFR (MDRD) Non-Af BUN/Creatinine Ratio Glucose Calcium Phosphorus Magnesium Total Bilirubin AST ALT Alkaline Phosphatase Troponin I Cancelled Total Protein Albumin Globulin Albumin/Globulin Ratio S.aureus Protein A PCR MRSA (PCR) POC Glucose 143 H 130 H 08/13/19 08/13/19 04:05 04:05 WBC 13.8 H RBC 4.82 Hgb 14.4 Hct 44.5 MCV 92.3 MCH 29.9 MCHC 32.4 RDW Std Deviation 53.2 H RDW Coeff of Terrie 15.7 H Plt Count 93 L MPV 11.4 Immature Gran % (Auto) 1.400 H Neut % (Auto) 90.9 H Lymph % (Auto) 3.3 L [place] % (Auto) 4.3 Eos % (Auto) 0.0 Baso % (Auto) 0.1 Absolute Neuts (auto) 12.6 H Absolute Lymphs (auto) 0.46 L Nucleated RBC % 0 Differential Comment Dohle Bodies Platelet Estimate MOD DEC Polychromasia Anisocytosis 1+ Crenated Cell 3+ Sodium 137 Potassium 4.3 Chloride 107 Carbon Dioxide 21.0 Anion Gap 9 BUN 47 H Creatinine 1.65 H Estim Creat Clear Calc 41.86 Est GFR (MDRD) Af Amer 56 L Est GFR (MDRD) Non-Af 46 L BUN/Creatinine Ratio 28.5 H Glucose 132 H Calcium 8.4 L Phosphorus 2.6 Magnesium 2.2 Total Bilirubin AST ALT Alkaline Phosphatase Troponin I Total Protein Albumin Globulin Albumin/Globulin Ratio S.aureus Protein A PCR MRSA (PCR) POC Glucose Microbiology 08/11/19 19:50 Stool Enteric Bacteriology - Final 08/11/19 13:15 Wound - Left Foot Gram Stain - Final 08/11/19 13:15 Wound - Left Foot Wound Culture - Preliminary Mixed Gram Positive Organisms 08/10/19 09:25 Blood Culture (Wb) - Right Hand Blood Culture - Preliminary No growth in 48 hours. 08/10/19 09:10 Blood Culture (Wb) - Venous Bacteria Detection (PCR) - Final Strep not Strep pneumo 08/10/19 09:10 Blood Culture (Wb) - Venous Blood Culture - Preliminary Streptococcus group C 08/11/19 19:50 Stool C. difficile DNA Amplification - Final Clinical Impression(s) from Imaging Studies KUB X-Ray 08/12/19 06:13 IMPRESSION: Normal x-ray examination of the abdomen and pelvis. Electronically Signed: Rachel Owens at 8:10 EDT Tel , Service support , Abdomen Ultrasound 08/12/19 14:27 IMPRESSION: Status post cholecystectomy with no distinct biliary dilatation. Slight irregularity throughout the liver margins which does not disc with very early liver disease, clinical correlation recommended. Remainder of the right upper quadrant ultrasound otherwise unremarkable. Possible small right-sided pleural effusion Electronically Signed: Sydnee Bartlett MD at 1:10 EDT , Service support , Medical Necessity - Tobacco Use Smoking Status: Former smoker Tobacco Use: Non-smoker Assessment/Plan All Active Problems (Last Reviewed 02/03/19 @ 10:[address] Keven Willingham MD) History of coronary artery stent placement (Resolved 05/29/09) Altered mental status (Resolved) Pleural effusion, left (Resolved) Pneumonia (Resolved) RECOMMENDATIONS: 1. Continue antibiotics per infectious disease 2. Increase activity as tolerated 3. Anticipate lower systolic pressures given decreased EF 4. Zofran as needed for nausea 5. Okay to leave the intensive care unit from my perspective IMPRESSIONS: 1. Septic shock secondary to left lower extremity cellulitis Patient with decreased feeling of his left lower extremity and an ulcer on the dorsum of his foot. Patient was reporting fever and cough, but this resolved with improvement in blood pressure. Blood cultures are currently growing Streptococcus. There appears to be some regression of rash on previously marked areas. Given patient's reduced EF, concern for fluid overload leading to respiratory complications. Treatment somewhat complicated by peripheral vascular disease. 2. Possible acute on chronic systolic congestive heart failure/A. fib Fluid status is unclear at this time. Patient is hypotensive, but has a pattern on chest x-ray suggestive of pulmonary edema. Patient saturating well on room air. Patient with significant decrease in functioning. Would hold off on medical therapy for systolic CHF for another 24 hours 3. CKD stage III/hyperlipidemia/history of LV thrombus/secondary pulmonary hypertension/hypertension/possible COPD Complicates care, management, recovery and prognosis. Unclear baseline creatinine. Patient was 1.14 less than a year ago. We will continue to monitor closely. Clinical suspicion for prerenal etiology is a mixture of septic shock and decreased EF. Patient is anticoagulated at this time. Patient does have an extensive smoking history in the past. Patient believes he was diagnosed with COPD in the past, but does not know his exact function. Patient does not use inhalers at baseline. 4. Nausea/vomiting/diarrhea Unclear etiology. Patient is on pressor therapy with a history of peripheral vascular disease. Some concern for possible decreased bowel perfusion leading to current symptomatology. Patient is not having any bloody diarrhea suggestive of ischemic bowel. Nausea has improved with improved blood pressure. Treat empirically for now. Previous KUB is not suggestive of an ileus. Inpatient E&M: [id number] [facility] L[facility]
[2019-08-13] MEDS: Menthol/Lanolin/Calamine/Znox 113 GM Tube 1 APPLIC TOPICAL ×2 (08:27→22:03)
[2019-08-13] MEDS: Nystatin Powder 15gm Bottle 1 APPLIC TOPICAL ×2 (08:29→22:04)
--- NOTE | 2019-08-13 09:53 | CM.UR ---
Participated in interdisciplinary rounds this am. Patient has LLE cellulitis. Levo is off, santos is out and he is on room air. Has decreased EF. Remains on IVAB and a TL. Currently plan is home with [facility] as that is where his aides are from. Case mgmt will continue to follow for any needs. May Matute RN, CCM.
[2019-08-13] MEDS: Furosemide 40 MG Tablet PO ×2 (10:47→18:10)
--- NOTE | 2019-08-13 11:01 | PCM.PN.HOSP ---
Reason for Visit: Follow-up on septic shock Subjective: Patient was seen and examined. He has persistent nausea. No diarrhea. He denied fever or chills. Off Levophed since last afternoon. Objective: Physical exam: General: Alert, Oriented x3, Cooperative HEENT: Atraumatic, PERRLA, EOMI, Normocephalic Oral: Moist Mucosa Neck: Supple Lungs: Normal air movement, Diminished Cardiovascular: Regular rate, Regular Rhythm, Normal S1, Normal S2, No murmurs Abdomen: Bowel Sounds Present, Soft, Non Tender, Non-Distended, No Hepato-splenomegaly Extremities: Edema - +2 bilateral, lower legs, erythema of left leg, up to the thigh, left plantar wound/ulcer, no erythema or discharge Skin: No rashes, No breakdown Musculoskeletal: No Tenderness to Palpation of Joints or Extremities Neurological: Cranial nerves II-XII grossly intact Psych/Mental Status: Normal Affect, Appropriate Vitals/I&O's: Vital Signs Temp Pulse Resp BP Pulse Ox 98.1 F 80 11 L 102/74 99 08/13/19 04:00 08/13/19 07:00 08/13/19 07:00 08/13/19 07:00 08/13/19 08:50 Oxygen Flow Rate (L/min) 2 Oxygen Delivery Method Room Air Weight: 96.2 kg Body Mass Index (BMI) 34.0 Finger Stick Blood Glucose 87 Intake and Output for Last 24 Hours 08/11/19 08/12/19 08/13/19 23:59 23:59 23:59 Intake Total 2306.03 / 2315.43 746.55 / 879.88 220.00 / 220.00 Output Total 825 / 825 800 / 875 225 / 225 Balance 1481.03 / 1490.43 -53.45 / 4.88 -5.00 / -5.00 Microbiology Past 72 Hours 08/11/19 13:15 Wound - Left Foot Gram Stain - Final 08/11/19 13:15 Wound - Left Foot Wound Culture - Preliminary Streptococcus group B Staphylococcus aureus Gram positive cyn 08/11/19 09:50 Blood Culture (Wb) - Central Line Blood Culture - Preliminary No growth in 48 hours. 08/11/19 09:40 Blood Culture (Wb) - Left Hand Blood Culture - Preliminary No growth in 48 hours. 08/11/19 19:50 Stool Enteric Bacteriology - Final 08/10/19 09:25 Blood Culture (Wb) - Right Hand Blood Culture - Preliminary No growth in 48 hours. 08/10/19 09:10 Blood Culture (Wb) - Venous Bacteria Detection (PCR) - Final Strep not Strep pneumo 08/10/19 09:10 Blood Culture (Wb) - Venous Blood Culture - Preliminary Streptococcus group C 08/11/19 19:50 Stool C. difficile DNA Amplification - Final 08/10/19 10:48 Mucosa - Nose Respiratory Panel (PCR) - Final 08/10/19 08:40 Mucosa - Nose Influenza Types A,B Direct FA (RAUL) - Final Laboratory Results 08/12/19 17:24: POC Glucose 143 H 08/12/19 22:58: POC Glucose 130 H 08/13/19 00:45: Troponin I Cancelled 08/13/19 04:05: WBC 13.8 H, RBC 4.82, Hgb 14.4, Hct 44.5, MCV 92.3, MCH 29.9, MCHC 32.4, RDW Std Deviation 53.2 H, RDW Coeff of Terrie 15.7 H, Plt Count 93 L, MPV 11.4, Immature Gran % (Auto) 1.400 H, Neut % (Auto) 90.9 H, Lymph % (Auto) 3.3 L, [place] % (Auto) 4.3, Eos % (Auto) 0.0, Baso % (Auto) 0.1, Absolute Neuts (auto) 12.6 H, Absolute Lymphs (auto) 0.46 L, Nucleated RBC % 0, Differential Comment , Platelet Estimate MOD DEC, Anisocytosis 1+, Crenated Cell 3+ 08/13/19 04:05: Sodium 137, Potassium 4.3, Chloride 107, Carbon Dioxide 21.0, Anion Gap 9, BUN 47 H, Creatinine 1.65 H, Estim Creat Clear Calc 41.86, Est GFR (MDRD) Af Amer 56 L, Est GFR (MDRD) Non-Af 46 L, BUN/Creatinine Ratio 28.5 H, Glucose 132 H, Calcium 8.4 L, Phosphorus 2.6, Magnesium 2.2 Current Medications Acetaminophen (Tylenol) 650 mg PO Q6H PRN PRN PRN Reason: Pain Score 1-10/Temp > 100.7 F Last Admin: 08/11/19 05:17 Dose: 650 mg Documented by: Albuterol Sulfate (Ventolin Aerosols) 2.5 mg INHALATION Q2H PRN PRN PRN Reason: SOB/Wheezing Calamine/Phenol (Calmoseptine Ointment) 1 applic TOPICAL BID [facility]; Protocol Last Admin: 08/13/19 08:27 Dose: 1 applicatio Documented by: Furosemide (Lasix) 40 mg PO BID@1000,1800 MARISEL Last Admin: 08/13/19 10:47 Dose: 40 mg Documented by: Glucagon () 1 mg IM .X1 PRN PRN Reason: Hypoglycemia Heparin Sodium (Porcine) (Heparin Na) 5,000 unit SC Q8 [facility] Last Admin: 08/13/19 06:34 Dose: 5,000 unit Documented by: Piperacillin Sod/Tazobactam (Sod 3.375 gm/ Sodium Chloride) 50 mls @ 12.5 mls/hr IV Q8 [facility] Last Infusion: 08/13/19 10:47 Dose: Infused Documented by: Norepinephrine Bitartrate 8 mg (/ Sodium Chloride) 250 mls @ 9.375 mls/hr CONT INF .[id number] [facility]; Protocol Last Titration: 08/13/19 06:00 Dose: 0 mcg/min, 0 mls/hr Documented by: Dextrose (Dextrose 10%-Water) 250 mls @ 999 mls/hr IV .Q16M PRN; Protocol PRN Reason: HYPOGLYCEMIA Insulin Human Lispro (Humalog Kwikpen (Bkc)) 0 unit SC ACHS [facility]; Protocol Last Admin: 08/13/19 08:12 Dose: Not Given Documented by: Nutritional Formula (Tomás - [place] Flavor) 1 packet PO BIDCM [facility] Last Admin: 08/13/19 08:27 Dose: 1 packet Documented by: Nystatin (Mycostatin Powder) 1 applic TOPICAL BID [facility]; Protocol Last Admin: 08/13/19 08:29 Dose: 1 applicatio Documented by: Ondansetron HCl (Zofran) 4 mg IV Q8H PRN PRN PRN Reason: NAUSEA/VOMITING Last Admin: 08/13/19 04:03 Dose: 4 mg Documented by: Sodium Chloride () 10 - 40 ml IV UD PRN PRN Reason: SALINE FLUSH Last Admin: 08/12/19 19:49 Dose: 40 ml Documented by: STROKE Vital Signs/Narrative: Vital Signs Pulse Ox 03/21/20 08:50 99 Medical Necessity - Tobacco Use Smoking Status: Former smoker Tobacco Use: Non-smoker Assessment/Plan All Active Problems (Last Reviewed 02/03/19 @ 10:[address] Keven Willingham MD) History of coronary artery stent placement (Resolved 05/29/09) Altered mental status (Resolved) Pleural effusion, left (Resolved) Pneumonia (Resolved) 58 year old M with PMHx of CAD s/p stents, chronic ischemic cardiomyopathy, EF of 15%, status post AICD, type II DM, hypertension, PAD s/p angioplasty comes in with complaints of shortness of breath, fever and chills that started 1 week ago prior to admission. 1. Septic shock/Strept Gp C bacteremia secondary to left lower leg cellulitis/pneumonia, improved Off Levophed, hemodynamically stable, WBC improving. Repeat blood cultures are negative. Continue on the Zosyn (day 4) 2. Pneumonia/URI, improving, not on oxygen Influenza/resp panel negative Continue on IV antibiotics as above 3. Acute on chronic systolic CHF, reveals EF of 15%, drop from 25% status post AICD, admitting BNPep is 605, Will resume Lasix today at 40mg po bid since he is hemodynamically improved Strict I & Os, fluid restriction, will start on LEONIDES-wraps 4. Left lower leg cellulitis/plantar staph aureus/streptococcal diabetic ulcer, this is likely the source of infection wound RN consulted 5. Type II DM, BS are controlled Continue with blood glucose checks with ISS 6. Chronic Atrial fibrillation, not in RVR now, will continue home meds 7. CKD stage 3, Cr about his baseline, appears slightly improved Will continue to monitor with start of Lasix 8. DVT PPx- Heparin SC Inpatient E&M: [id number] Subs Hosp L2
[2019-08-13 12:46] LABS: Bedside Glucose 141 mg/dL (70-110)
--- NOTE | 2019-08-13 13:37 | CM.UR ---
Addendum entered by Lela Matute 08/13/19 13:55: Spoke with Lela at [facility]. States that they would accept him. Explained the current situation but was trying to get a head start, if appropriate for HH. States their fax machine is down and potentially down til Thursday. Said to just call the office number and they will give you alternate fax number, if we need to fax anything before repaired. May Matute RN, CCM. Original Note: Met face to face with patient today. He would prefer to go home with [facility] home health care however he hasn't really been participating in therapy. He refused PT today stating he has already been up. Didn't do much during therapy eval without needing much encouragement. Prepared Green sheet for HH however I also alerted staff to pay attention and document how he is ambulating to determine if truly appropriate for [facility]. May Matute RN, CCM.
[2019-08-13 16:45] LABS: Bedside Glucose 134 mg/dL (70-110)
--- NOTE | 2019-08-13 17:23 | NURSING ---
report called to [facility] for transfer to room 120, transferred per bed with belongings
[2019-08-13] MEDS: Insulin Lispro 100 UNIT/ML INSULN.PEN SC (22:15)
[2019-08-13 22:16] LABS: Bedside Glucose 164 mg/dL (70-110)
[2019-08-14] VITALS (10 sets, daily range): BP systolic 96–111; BP diastolic 63–82; PULSE 69–84; RESP 16–18; TEMP 36.5–36.9; O2SAT 94–99
[2019-08-14] MEDS: Heparin Injection (Vial) 5,000 UNIT/ML VIAL 5000 UNIT SC ×3 (05:29→21:23)
[2019-08-14] MEDS: Ondansetron 4 MG/2 ML Vial IV (06:16)
[2019-08-14] MEDS: 0.9% Saline Lock 10 ML Syringe IV ×3 (06:16→19:01)
[2019-08-14 06:18] LABS: Absolute Lymphocyte Count 0.55 X10^3/uL (0.83-4.51); Basophil# 0.02 X10^3/uL; Basophil% 0.2 % (0-1); Eosinophil# 0.01 X10^3/uL; Eosinophils% 0.1 % (0-5); Hematocrit 42.5 % (40-54); Hemoglobin 13.9 g/dL (13.0-16.5); Lymphocyte # 0.55 X10^3/ul (4.0); Lymphocyte % 5.4 % (19-41); Mean Corp Hgb Conc 32.7 g/dL (32-36); Mean Corpuscular Hgb 29.8 pg (27.0-32.0); Mean Corpuscular Volume 91.2 fL (80-94); Mean Platelet Vol. 11.8 fl (6.2-12.0); Monocyte% 5.9 % (0-10); NRBC Flagged by Analyzer 0 % (0-5); POSITIVE COUNT YES; POSITIVE DIFFERENTIAL YES; Platelet Count 87 K/mm3 (150-450); RBC Distribution Width CV 15.6 % (11.6-14.6); RBC Distribution Width SD 51.6 fl (35.1-43.9); Red Blood Count 4.66 M/mm3 (4.6-6.2); White Blood Count 10.2 K/mm3 (4.4-11.0)
[2019-08-14 06:26] LABS: Differential Indicated SCAN CRITERIA MET
[2019-08-14 06:35] LABS: ALB/GLOB Ratio 0.8 RATIO (0.9-2.4); AST(SGOT) 19 U/L (15-37); Alanine Aminotransfer ALT/SGPT 19 U/L (16-61); Albumin, Serum 2.8 g/dL (3.2-5.0); Alkaline Phosphatase 174 U/L (45-117); Anion Gap 9 (5-15); BUN 52 mg/dL (7-18); BUN/Creat Ratio 31.7 RATIO (10-20); Calcium,Total 8.4 mg/dL (8.5-10.1); Chloride 109 mmol/L (98-107); Creatinine, Serum 1.64 mg/dL (0.70-1.30); EST Glomerular Filtration Rate 46 mL/min (>60); Est Glom Filt Rate - Afr Amer 56 mL/min (>60); Estimated Creatinine Clearance 42.11 ml/min; Globulin 3.5 g/dL (2.2-4.2); Glucose 160 mg/dL (74-106); Potassium 4.2 mmol/L (3.5-5.1); Protein, Total 6.3 g/dL (6.4-8.2); Sodium Level 137 mmol/L (136-145)
[2019-08-14 06:55] LABS: Bedside Glucose 139 mg/dL (70-110)
--- NOTE | 2019-08-14 07:40 | PN_ITS ---
Subjective: Patient transferred out of the intensive care unit yesterday. Patient has been hemodynamically stable on room air and reports subjective improvement in overall condition. Patient is still having episodes of dry heaving, but no emesis. No diarrhea has been reported by the patient. General: Alert, Oriented x3, Cooperative, No apparent distress, - - Appears older than stated age. Speaking in full sentences. HEENT: Atraumatic, PERRLA, EOMI, Normocephalic, - - No scleral icterus or injection noted Oral: Moist Mucosa, No Gingival or Mucosal Lesions/ Ulcerations Neck: Supple, No JVD, No Nodes, Trachea Midline Lungs: Clear to auscultation, No rhonchi, No wheeze, No rales, - - Symmetric expansion. No dullness to percussion. Cardiovascular: Regular rate, Regular Rhythm, Normal S1, Normal S2, No murmurs, No rub noted, No Gallop Abdomen: Bowel Sounds Present, Soft, Non Tender, Non-Distended Extremities: No clubbing, No cyanosis, No edema, Capillary Refill Less than 3 Seconds Skin: No breakdown, Rash Present - Continues to improve Musculoskeletal: No Tenderness to Palpation of Joints or Extremities Lymphatic: No Cervical, Supraclavicular, or Inguinal Adenopathy Neurological: Cranial nerves II-XII grossly intact, Neuro grossly intact Psych/Mental Status: Alert and oriented to time, place, person, mood and affect Vital Signs Temp Pulse Resp BP Pulse Ox 36.9 C 69 16 111/67 94 08/14/19 04:15 08/14/19 05:13 08/14/19 04:15 08/14/19 04:15 08/14/19 04:15 Oxygen Flow Rate (L/min) 2 Oxygen Delivery Method Room Air Weight: 97.9 kg Body Mass Index (BMI) 34.0 Finger Stick Blood Glucose 87 Intake and Output for Last 24 Hours 08/12/19 08/13/19 08/14/19 23:59 23:59 23:59 Intake Total 746.55 / 879.88 950.00 / 950.00 170 / 170 Output Total 800 / 875 620 / 620 Balance -53.45 / 4.88 330.00 / 330.00 170 / 170 Labs (Last 48 Hours) 08/12/19 08/12/19 08/12/19 10:42 17:24 22:58 WBC RBC Hgb Hct MCV MCH MCHC RDW Std Deviation RDW Coeff of Terrie Plt Count MPV Immature Gran % (Auto) Neut % (Auto) Lymph % (Auto) [place] % (Auto) Eos % (Auto) Baso % (Auto) Absolute Neuts (auto) Absolute Lymphs (auto) Nucleated RBC % Differential Comment Platelet Estimate Anisocytosis Crenated Cell Sodium Potassium Chloride Carbon Dioxide Anion Gap BUN Creatinine Estim Creat Clear Calc Est GFR (MDRD) Af Amer Est GFR (MDRD) Non-Af BUN/Creatinine Ratio Glucose Calcium Phosphorus Magnesium Total Bilirubin AST ALT Alkaline Phosphatase Troponin I Total Protein Albumin Globulin Albumin/Globulin Ratio POC Glucose 124 H 143 H 130 H 08/13/19 08/13/19 08/13/19 00:45 04:05 04:05 WBC 13.8 H RBC 4.82 Hgb 14.4 Hct 44.5 MCV 92.3 MCH 29.9 MCHC 32.4 RDW Std Deviation 53.2 H RDW Coeff of Terrie 15.7 H Plt Count 93 L MPV 11.4 Immature Gran % (Auto) 1.400 H Neut % (Auto) 90.9 H Lymph % (Auto) 3.3 L [place] % (Auto) 4.3 Eos % (Auto) 0.0 Baso % (Auto) 0.1 Absolute Neuts (auto) 12.6 H Absolute Lymphs (auto) 0.46 L Nucleated RBC % 0 Differential Comment Platelet Estimate MOD DEC Anisocytosis 1+ Crenated Cell 3+ Sodium 137 Potassium 4.3 Chloride 107 Carbon Dioxide 21.0 Anion Gap 9 BUN 47 H Creatinine 1.65 H Estim Creat Clear Calc 41.86 Est GFR (MDRD) Af Amer 56 L Est GFR (MDRD) Non-Af 46 L BUN/Creatinine Ratio 28.5 H Glucose 132 H Calcium 8.4 L Phosphorus 2.6 Magnesium 2.2 Total Bilirubin AST ALT Alkaline Phosphatase Troponin I Cancelled Total Protein Albumin Globulin Albumin/Globulin Ratio POC Glucose 08/13/19 08/13/19 08/13/19 12:40 16:43 22:11 WBC RBC Hgb Hct MCV MCH MCHC RDW Std Deviation RDW Coeff of Terrie Plt Count MPV Immature Gran % (Auto) Neut % (Auto) Lymph % (Auto) [place]borne % (Auto) Eos % (Auto) Baso % (Auto) Absolute Neuts (auto) Absolute Lymphs (auto) Nucleated RBC % Differential Comment Platelet Estimate Anisocytosis Crenated Cell Sodium Potassium Chloride Carbon Dioxide Anion Gap BUN Creatinine Estim Creat Clear Calc Est GFR (MDRD) Af Amer Est GFR (MDRD) Non-Af BUN/Creatinine Ratio Glucose Calcium Phosphorus Magnesium Total Bilirubin AST ALT Alkaline Phosphatase Troponin I Total Protein Albumin Globulin Albumin/Globulin Ratio POC Glucose 141 H 134 H 164 H 08/14/19 08/14/19 08/14/19 05:46 05:46 06:51 WBC 10.2 RBC 4.66 Hgb 13.9 Hct 42.5 MCV 91.2 MCH 29.8 MCHC 32.7 RDW Std Deviation 51.6 H RDW Coeff of Terrie 15.6 H Plt Count 87 L MPV 11.8 Immature Gran % (Auto) 0.400 Neut % (Auto) 88.0 H Lymph % (Auto) 5.4 L [place] % (Auto) 5.9 Eos % (Auto) 0.1 Baso % (Auto) 0.2 Absolute Neuts (auto) 9.0 H Absolute Lymphs (auto) 0.55 L Nucleated RBC % 0 Differential Comment Platelet Estimate Anisocytosis Crenated Cell Sodium 137 Potassium 4.2 Chloride 109 H Carbon Dioxide 19.0 L Anion Gap 9 BUN 52 H Creatinine 1.64 H Estim Creat Clear Calc 42.11 Est GFR (MDRD) Af Amer 56 L Est GFR (MDRD) Non-Af 46 L BUN/Creatinine Ratio 31.7 H Glucose 160 H Calcium 8.4 L Phosphorus Magnesium Total Bilirubin 1.50 H AST 19 ALT 19 Alkaline Phosphatase 174 H Troponin I Total Protein 6.3 L Albumin 2.8 L Globulin 3.5 Albumin/Globulin Ratio 0.8 L POC Glucose 139 H Microbiology 08/11/19 13:15 Wound - Left Foot Gram Stain - Final 08/11/19 13:15 Wound - Left Foot Wound Culture - Final Streptococcus agalactiae (B) Staphylococcus aureus Gram positive cyn 08/11/19 09:50 Blood Culture (Wb) - Central Line Blood Culture - Preliminary No growth in 48 hours. 08/11/19 09:40 Blood Culture (Wb) - Left Hand Blood Culture - Preliminary No growth in 48 hours. 08/11/19 19:50 Stool Enteric Bacteriology - Final 08/10/19 09:25 Blood Culture (Wb) - Right Hand Blood Culture - Preliminary No growth in 48 hours. 08/10/19 09:10 Blood Culture (Wb) - Venous Bacteria Detection (PCR) - Final Strep not Strep pneumo 08/10/19 09:10 Blood Culture (Wb) - Venous Blood Culture - Preliminary Streptococcus group C Medical Necessity - Tobacco Use Smoking Status: Former smoker Tobacco Use: Non-smoker Assessment/Plan All Active Problems (Last Reviewed 02/03/19 @ 10:[address] Keven Willingham MD) History of coronary artery stent placement (Resolved 05/29/09) Altered mental status (Resolved) Pleural effusion, left (Resolved) Pneumonia (Resolved) RECOMMENDATIONS: 1. Continue antibiotics per infectious disease 2. Increase activity as tolerated 3. Anticipate lower systolic pressures given decreased EF 4. Zofran as needed for nausea 5. Hemodynamically stable on room air. Will sign off from a critical care perspective IMPRESSIONS: 1. Septic shock secondary to left lower extremity cellulitis Patient with decreased feeling of his left lower extremity and an ulcer on the dorsum of his foot. Patient was reporting fever and cough, but this resolved with improvement in blood pressure. Blood cultures are currently growing Streptococcus. There continues to be some regression of rash on previously marked areas. Given patient's reduced EF, concern for fluid overload leading to respiratory complications. Treatment somewhat complicated by peripheral vascular disease. 2. Possible acute on chronic systolic congestive heart failure/A. fib Fluid status appears normal at this time. Patient was hypotensive, but has a pattern on chest x-ray suggestive of pulmonary edema. Patient saturating well on room air. Patient with significant decrease in functioning. Likely oka y to initiate medical therapy for systolic CHF. Some decrease in EF may be secondary to problem #1. 3. CKD stage III/hyperlipidemia/history of LV thrombus/secondary pulmonary hypertension/hypertension/possible COPD Complicates care, management, recovery and prognosis. Unclear baseline creatinine. Patient was 1.14 less than a year ago. We will continue to monitor closely. Clinical suspicion for prerenal etiology is a mixture of septic shock and decreased EF. Creatinine is slowly improving. Patient is anticoagulated at this time. Patient does have an extensive smoking history in the past. Patient believes he was diagnosed with COPD in the past, but does not know his exact function. Patient does not use inhalers at baseline. 4. Nausea/vomiting/diarrhea Unclear etiology. Patient has a history of peripheral vascular disease. Some concern for possible decreased bowel perfusion leading to current symptomatology. Patient is not having any bloody diarrhea suggestive of ischemic bowel. Nausea has improved with improved blood pressure. Treat empirically for now. Previous KUB is not suggestive of an ileus. Inpatient E&M: 01854 Subs Hosp L2
--- NOTE | 2019-08-14 10:33 | RAD_ITS ---
STUDY: X-RAY - ABDOMEN/PELVIS REASON FOR EXAM: Male, 58 years old. Nausea, abd discomfort TECHNIQUE: AP supine and decubitus views of the abdomen and pelvis. COMPARISON: August 12, 2019 abdomen KUB FINDINGS: There are visualized pacer defibrillator leads overlying the heart. There is partially visualized left lower lobe atelectasis on one view. There is a visualized IVC filter at the level L2-L3. There is postoperative change in the right upper quadrant status post cholecystectomy. There is a gassy appearance of the visualize colon. There are a few gas bubbles that are seen adjacent to the liver''s edge on one view that is possibly associated with gas within nondistended bowel. There is minimal distention of the small bowel. On the decubitus images provided there is visualized soft tissue edema. There is a right-sided common iliac stent. There is postoperative change in the bilateral groin. RAD/Abd Inc Decub and/or Erect IMPRESSION: There are a few bubbles of gas within the right upper quadrant projected over the inferior and to the liver which may represent a normal gas and a nondistended decompressed loop of bowel. Given the clinical history, if appropriate could consider a follow-up CT scan of the abdomen and pelvis. Otherwise there is a minimally distended appearance of the large bowel which is suggestive mild ileus. Status post IVC filter. Status post cholecystectomy. Status post right common iliac stent. Postoperative changes in the pelvis. Electronically Signed: Samira Castro MD at 12:57 EDT Tel , Service support ,
[2019-08-14] MEDS: Metoclopramide 10 MG/2 ML Vial IV (11:23)
[2019-08-14 11:36] LABS: Bedside Glucose 172 mg/dL (70-110)
[2019-08-14] MEDS: Furosemide 40 MG Tablet PO (13:21)
[2019-08-14] MEDS: Nystatin Powder 15gm Bottle 1 APPLIC TOPICAL (13:22)
[2019-08-14] MEDS: Menthol/Lanolin/Calamine/Znox 113 GM Tube 1 APPLIC TOPICAL (13:22)
--- NOTE | 2019-08-14 14:01 | PCM.PN.HOSP ---
Reason for Visit: Follow-up on septic shock Subjective: Patient was seen and examined. He complains of abdominal discomfort and nausea. KUB suggestive of ileus. Objective: Physical exam: General: Alert, Oriented x3, Cooperative HEENT: Atraumatic, PERRLA, EOMI, Normocephalic Oral: Moist Mucosa Neck: Supple Lungs: Normal air movement, Diminished Cardiovascular: Regular rate, Regular Rhythm, Normal S1, Normal S2, No murmurs Abdomen: Bowel Sounds Present, Soft, Non Tender, Non-Distended, No Hepato-splenomegaly Extremities: Edema - +2 bilateral, lower legs, erythema of left leg, up to the thigh, left plantar wound/ulcer, no erythema or discharge Skin: No rashes, No breakdown Musculoskeletal: No Tenderness to Palpation of Joints or Extremities Neurological: Cranial nerves II-XII grossly intact Psych/Mental Status: Normal Affect, Appropriate Vitals/I&O's: Vital Signs Temp Pulse Resp BP Pulse Ox 97.7 F L 80 16 96/64 99 08/14/19 09:53 08/14/19 11:09 08/14/19 09:53 08/14/19 09:53 08/14/19 09:53 Oxygen Flow Rate (L/min) 2 Oxygen Delivery Method Room Air Weight: 97.9 kg Body Mass Index (BMI) 34.0 Finger Stick Blood Glucose 87 Intake and Output for Last 24 Hours 08/12/19 08/13/19 08/14/19 23:59 23:59 23:59 Intake Total 746.55 / 879.88 950.00 / 950.00 460 / 460 Output Total 800 / 875 620 / 620 Balance -53.45 / 4.88 330.00 / 330.00 460 / 460 Microbiology Past 72 Hours 08/11/19 13:15 Wound - Left Foot Gram Stain - Final 08/11/19 13:15 Wound - Left Foot Wound Culture - Final Streptococcus agalactiae (B) Staphylococcus aureus Gram positive cyn 08/11/19 09:50 Blood Culture (Wb) - Central Line Blood Culture - Preliminary No growth in 48 hours. 08/11/19 09:40 Blood Culture (Wb) - Left Hand Blood Culture - Preliminary No growth in 48 hours. 08/11/19 19:50 Stool Enteric Bacteriology - Final 08/10/19 09:25 Blood Culture (Wb) - Right Hand Blood Culture - Preliminary No growth in 48 hours. 08/10/19 09:10 Blood Culture (Wb) - Venous Bacteria Detection (PCR) - Final Strep not Strep pneumo 08/10/19 09:10 Blood Culture (Wb) - Venous Blood Culture - Preliminary Streptococcus group C 08/11/19 19:50 Stool C. difficile DNA Amplification - Final Laboratory Results 08/13/19 16:43: POC Glucose 134 H 08/13/19 22:11: POC Glucose 164 H 08/14/19 05:46: WBC 10.2, RBC 4.66, Hgb 13.9, Hct 42.5, MCV 91.2, MCH 29.8, MCHC 32.7, RDW Std Deviation 51.6 H, RDW Coeff of Terrie 15.6 H, Plt Count 87 L, MPV 11.8, Immature Gran % (Auto) 0.400, Neut % (Auto) 88.0 H, Lymph % (Auto) 5.4 L, [place] % (Auto) 5.9, Eos % (Auto) 0.1, Baso % (Auto) 0.2, Absolute Neuts (auto) 9.0 H, Absolute Lymphs (auto) 0.55 L, Nucleated RBC % 0 08/14/19 05:46: Sodium 137, Potassium 4.2, Chloride 109 H, Carbon Dioxide 19.0 L, Anion Gap 9, BUN 52 H, Creatinine 1.64 H, Estim Creat Clear Calc 42.11, Est GFR (MDRD) Af Amer 56 L, Est GFR (MDRD) Non-Af 46 L, BUN/Creatinine Ratio 31.7 H, Glucose 160 H, Calcium 8.4 L, Total Bilirubin 1.50 H, AST 19, ALT 19, Alkaline Phosphatase 174 H, Total Protein 6.3 L, Albumin 2.8 L, Globulin 3.5, Albumin/Globulin Ratio 0.8 L 08/14/19 06:51: POC Glucose 139 H 08/14/19 11:28: POC Glucose 172 H Current Medications Acetaminophen (Tylenol) 650 mg PO Q6H PRN PRN PRN Reason: Pain Score 1-10/Temp > 100.7 F Last Admin: 08/11/19 05:17 Dose: 650 mg Documented by: Albuterol Sulfate (Ventolin Aerosols) 2.5 mg INHALATION Q2H PRN PRN PRN Reason: SOB/Wheezing Calamine/Phenol (Calmoseptine Ointment) 1 applic TOPICAL BID [facility]; Protocol Last Admin: 08/14/19 13:22 Dose: 1 applicatio Documented by: Furosemide (Lasix) 40 mg PO BID@1000,1800 MARISEL Last Admin: 08/14/19 13:21 Dose: 40 mg Documented by: Glucagon () 1 mg IM .X1 PRN PRN Reason: Hypoglycemia Heparin Sodium (Porcine) (Heparin Na) 5,000 unit SC Q8 MARISEL Last Admin: 08/14/19 05:29 Dose: 5,000 unit Documented by: Piperacillin Sod/Tazobactam (Sod 3.375 gm/ Sodium Chloride) 50 mls @ 12.5 mls/hr IV Q8 [facility] Last Infusion: 08/14/19 10:00 Dose: Infused Documented by: Dextrose (Dextrose 10%-Water) 250 mls @ 999 mls/hr IV .Q16M PRN; Protocol PRN Reason: HYPOGLYCEMIA Insulin Human Lispro (Humalog Kwikpen (Bkc)) 0 unit SC ACHS [facility]; Protocol Last Admin: 08/14/19 11:29 Dose: Not Given Documented by: Nutritional Formula (Tomás - [place] Flavor) 1 packet PO BIDCM MARISEL Last Admin: 08/14/19 13:25 Dose: Not Given Documented by: Nystatin (Mycostatin Powder) 1 applic TOPICAL BID [facility]; Protocol Last Admin: 08/14/19 13:22 Dose: 1 applicatio Documented by: Ondansetron HCl (Zofran) 4 mg IV Q6H PRN PRN PRN Reason: NAUSEA Sodium Chloride () 10 - 40 ml IV UD PRN PRN Reason: SALINE FLUSH Last Admin: 08/14/19 06:26 Dose: 10 ml Documented by: STROKE Vital Signs/Narrative: Vital Signs Pulse 08/14/19 11:09 80 Medical Necessity - Tobacco Use Smoking Status: Former smoker Tobacco Use: Non-smoker Assessment/Plan All Active Problems (Last Reviewed 02/03/19 @ 10:[address] Keven Willingham MD) History of coronary artery stent placement (Resolved 05/29/09) Altered mental status (Resolved) Pleural effusion, left (Resolved) Pneumonia (Resolved) 58 year old M with PMHx of CAD s/p stents, chronic ischemic cardiomyopathy, EF of 15%, status post AICD, type II DM, hypertension, PAD s/p angioplasty comes in with complaints of shortness of breath, fever and chills that started 1 week ago prior to admission. Transferred out of ICU on 08/13/19. 1. Ileus, developed in the last couple of days, secondary to acute illness, Seen on KUB, would keep n.p.o., repeat KUB in a.m., encourage ambulation 2. Septic shock/Strept Gp C bacteremia secondary to left lower leg cellulitis/pneumonia, improved Initially was on Levophed, hemodynamically stable, WBC improving. Repeat blood cultures are negative. Continue on the Zosyn (day 5) 3. Pneumonia/URI, improving, not on oxygen Influenza/resp panel negative Continue on IV antibiotics as above 4. Acute on chronic systolic CHF, reveals EF of 15%, drop from 25% status post AICD, admitting BNPep is 605, Hold Lasix as patient will be kept n.p.o. Strict I & Os, fluid restriction, continue on LEONIDES-wraps 5. Left lower leg cellulitis/plantar staph aureus/streptococcal diabetic ulcer, this is likely the source of infection wound RN consulted 6. Type II DM, BS are controlled Continue with blood glucose checks with ISS 7. Chronic Atrial fibrillation, not in RVR now, will continue home meds 8. CKD stage 3, Cr about his baseline, appears slightly improved Will continue to monitor with start of Lasix 9. DVT PPx- Heparin SC 10: Disposition: Pending PT/OT/case management eval and patient's clinical improvement Inpatient E&M: [id number] Subs Hosp L2
[2019-08-14 17:51] LABS: Bedside Glucose 197 mg/dL (70-110)
--- NOTE | 2019-08-14 18:19 | NURSING ---
Patient voices that he hasn't been able to urinate very well since admission. Bladder scanned per nursing measure for 101cc urine. Voices some burning with urination, but no other complaints. Instructed patient to void in hat next time he needs to use the bathroom for nurse to assess. Patient voices understanding of same.
--- NOTE | 2019-08-14 20:10 | NURSING ---
RN CAME BACK TO CHECK ON PATIENT, PATIENT STATES HE WAS ASLEEP AND FEELS OKAY NOW
[2019-08-14 22:06] LABS: Bedside Glucose 156 mg/dL (70-110)
[2019-08-15] VITALS (9 sets, daily range): BP systolic 98–114; BP diastolic 67–78; PULSE 78–90; RESP 16–18; TEMP 36.3–37.2; O2SAT 95–98
[2019-08-15] MEDS: 0.9% Saline Lock 10 ML Syringe IV ×2 (06:26→15:14)
[2019-08-15] MEDS: Heparin Injection (Vial) 5,000 UNIT/ML VIAL 5000 UNIT SC ×3 (06:27→21:55)
[2019-08-15 06:43] LABS: Anion Gap 11 (5-15); BUN 45 mg/dL (7-18); BUN/Creat Ratio 28.8 RATIO (10-20); Calcium,Total 8.3 mg/dL (8.5-10.1); Chloride 108 mmol/L (98-107); Creatinine, Serum 1.56 mg/dL (0.70-1.30); EST Glomerular Filtration Rate 49 mL/min (>60); Est Glom Filt Rate - Afr Amer 59 mL/min (>60); Estimated Creatinine Clearance 44.27 ml/min; Glucose 145 mg/dL (74-106); Magnesium 2.2 mg/dL (1.6-2.6); Potassium 3.9 mmol/L (3.5-5.1); Sodium Level 138 mmol/L (136-145)
[2019-08-15 06:45] LABS: Bedside Glucose 150 mg/dL (70-110)
--- NOTE | 2019-08-15 08:18 | RAD_ITS ---
STUDY: X-RAY - ABDOMEN/PELVIS REASON FOR EXAM: Male, 58 years old. F/U ON ILEUS TECHNIQUE: AP supine and upright views of the abdomen and pelvis. COMPARISON: Comparison is made with prior study dated August 14, 2019. FINDINGS: Stable mild increased markings at the left lung base. There is an unremarkable bowel gas pattern. There is no demonstrated free abdominal air. The patient is status post cholecystectomy. A filter is seen within the inferior vena cava. There is evidence of prior stent placement in the right common and external iliac arteries with surgical clips in both groins most likely secondary to prior vascular surgery. Normal soft tissue structures. There are diffuse degenerative changes of the visualized lumbar spine. RAD/Abd Inc Decub and/or Erect IMPRESSION: Nonspecific bowel gas pattern. There has been essentially no change as compared to prior study. Electronically Signed: Mann Prater, at 9:19 EDT , Service support ,
[2019-08-15] MEDS: Nystatin Powder 15gm Bottle 1 APPLIC TOPICAL ×2 (09:51→21:56)
[2019-08-15] MEDS: Menthol/Lanolin/Calamine/Znox 113 GM Tube 1 APPLIC TOPICAL ×2 (09:52→21:55)
--- NOTE | 2019-08-15 11:28 | PN_ITS ---
<Delfin Kapoor - Last Filed: 08/15/19 11:28> Reason for Visit: ileus Subjective: ongoing RLQ abd pain, nausea, dry heave this AM. No SOB/cough/fevers/chills. Some LE edema. Vitals/I&O's: Vital Signs Temp Pulse Resp BP Pulse Ox 97.3 F L 79 16 98/68 96 08/15/19 09:48 08/15/19 09:48 08/15/19 09:48 08/15/19 09:48 08/15/19 09:48 Oxygen Flow Rate (L/min) 2 Oxygen Delivery Method Room Air Weight: 215 lb 13.321 oz Body Mass Index (BMI) 34.0 Finger Stick Blood Glucose 87 Intake and Output for Last 24 Hours 08/13/19 08/14/19 08/15/19 23:59 23:59 23:59 Intake Total 950.00 / 950.00 760 / 860 540.50 / 540.50 Output Total 620 / 620 650 / 650 Balance 330.00 / 330.00 760 / 660 -109.50 / -109.50 General: Alert, Oriented x3, Cooperative HEENT: Atraumatic, PERRLA, EOMI, Normocephalic Neck: Supple, No JVD, Negative Carotid Bruits Lungs: Clear to auscultation, Normal air movement Cardiovascular: Regular rate, No murmurs Abdomen: Bowel Sounds Present, Soft, Hypoactive Bowel Sounds, Tender - mild tendnerness to palp diffusely Extremities: No edema, Capillary Refill Less than 3 Seconds Skin: No rashes, No breakdown Musculoskeletal: No Tenderness to Palpation of Joints or Extremities Neurological: Cranial nerves II-XII grossly intact Psych/Mental Status: Normal Affect, Appropriate, Alert and oriented to time, place, person, mood and affect Microbiology Past 72 Hours 08/10/19 09:25 Blood Culture (Wb) - Right Hand Blood Culture - Final No growth in 5 days. 08/10/19 09:10 Blood Culture (Wb) - Venous Bacteria Detection (PCR) - Final Strep not Strep pneumo 08/10/19 09:10 Blood Culture (Wb) - Venous Blood Culture - Final Streptococcus group C 08/11/19 13:15 Wound - Left Foot Gram Stain - Final 08/11/19 13:15 Wound - Left Foot Wound Culture - Final Streptococcus agalactiae (B) Staphylococcus aureus Gram positive cyn 08/11/19 09:50 Blood Culture (Wb) - Central Line Blood Culture - Preliminary No growth in 48 hours. 08/11/19 09:40 Blood Culture (Wb) - Left Hand Blood Culture - Preliminary No growth in 48 hours. 08/11/19 19:50 Stool Enteric Bacteriology - Final Laboratory Results 08/14/19 11:28: POC Glucose 172 H 08/14/19 17:30: POC Glucose 197 H 08/14/19 21:12: POC Glucose 156 H 08/15/19 05:40: Sodium 138, Potassium 3.9, Chloride 108 H, Carbon Dioxide 19.0 L , Anion Gap 11, BUN 45 H, Creatinine 1.56 H, Estim Creat Clear Calc 44.27, Est GFR (MDRD) Af Amer 59 L, Est GFR (MDRD) Non-Af 49 L, BUN/Creatinine Ratio 28.8 H , Glucose 145 H, Calcium 8.3 L, Magnesium 2.2 08/15/19 06:41: POC Glucose 150 H Current Medications Acetaminophen (Tylenol) 650 mg PO Q6H PRN PRN PRN Reason: Pain Score 1-10/Temp > 100.7 F Last Admin: 08/11/19 05:17 Dose: 650 mg Documented by: Albuterol Sulfate (Ventolin Aerosols) 2.5 mg INHALATION Q2H PRN PRN PRN Reason: SOB/Wheezing Calamine/Phenol (Calmoseptine Ointment) 1 applic TOPICAL BID [facility]; Protocol Last Admin: 08/15/19 09:52 Dose: 1 applicatio Documented by: Glucagon () 1 mg IM .X1 PRN PRN Reason: Hypoglycemia Heparin Sodium (Porcine) (Heparin Na) 5,000 unit SC Q8 [facility] Last Admin: 08/15/19 06:27 Dose: 5,000 unit Documented by: Piperacillin Sod/Tazobactam (Sod 3.375 gm/ Sodium Chloride) 50 mls @ 12.5 mls/hr IV Q8 [facility] Last Infusion: 08/15/19 11:09 Dose: Infused Documented by: Dextrose (Dextrose 10%-Water) 250 mls @ 999 mls/hr IV .Q16M PRN; Protocol PRN Reason: HYPOGLYCEMIA Sodium Chloride () 250 mls @ 15 mls/hr IV .[id number] PRN PRN Reason: Saline Flush Last Infusion: 08/15/19 11:09 Dose: 15 mls/hr Documented by: Sodium Chloride () 250 mls @ 15 mls/hr IV .[id number] PRN PRN Reason: Additional IVPB Infusion Insulin Human Lispro (Humalog Kwikpen (Bkc)) 0 unit SC ACHS [facility]; Protocol Last Admin: 08/15/19 11:18 Dose: Not Given Documented by: Metoclopramide HCl (Reglan) 5 mg IV Q6H PRN PRN PRN Reason: NAUSEA Nutritional Formula (Tom[facility] - [place] [facility]) [facility] Last Admin: 08/15/19 09:50 Dose: Not Given Documented by: Nystatin (Mycostatin Powder) 1 applic TOPICAL BID [facility]; Protocol Last Admin: 08/15/19 09:51 Dose: 1 applicatio Documented by: Ondansetron HCl (Zofran) 4 mg IV Q6H PRN PRN PRN Reason: NAUSEA Sodium Chloride () 10 - 40 ml IV UD PRN PRN Reason: SALINE FLUSH Last Admin: 08/15/19 06:26 Dose: 20 ml Documented by: STROKE Vital Signs/Narrative: Vital Signs Temp Pulse Resp BP Pulse Ox 08/15/19 09:48 97.3 F L 79 16 98/68 96 Medical Necessity - Tobacco Use Smoking Status: Former smoker Tobacco Use: Non-smoker Assessment/Plan All Active Problems (Last Reviewed 02/03/19 @ 10:[address] Keven Willingham MD) History of coronary artery stent placement (Resolved 05/29/09) Altered mental status (Resolved) Pleural effusion, left (Resolved) Pneumonia (Resolved) 1. Ileus - remain NPO, some bowel sounds present, however still nauseous with dry heaving and RLQ abd pain. KUB shows no change. Pt needs to ambulate more. Continue reglan. Holding fluids with recent chf exacerbation, severe systolic dysfunction. 2. Septic shock 2/2 group C strep bacteremia, pneumonia, LLE cellulitis - improving. on zosyn. ID following. R to clinda. 3. Acute on chronic systolic CHF - improved. lasix held with pt npo. continue LEONIDES wraps, ongoing LE edema. No SOB today though. 4. DMt2 - SSI 5. Chronic Afib - rate stable. coreg / warfarin on hold (NPO) 6. CKDIII trend, improved. DVT ppx: heparin DC planning: pending resolution of ileus This patient was seen by Delfin Kapoor PA-C under the supervision of Doctor Nalini. <Steffen Gayle - Last Filed: 08/15/19 12:15> Vitals/I&O's: Vital Signs Temp Pulse Resp BP Pulse Ox 97.3 F L 79 16 98/68 96 08/15/19 09:48 08/15/19 09:48 08/15/19 09:48 08/15/19 09:48 08/15/19 09:48 Oxygen Flow Rate (L/min) 2 Oxygen Delivery Method Room Air Weight: 97.9 kg Body Mass Index (BMI) 34.0 Finger Stick Blood Glucose 87 Intake and Output for Last 24 Hours 08/13/19 08/14/19 08/15/19 23:59 23:59 23:59 Intake Total 950.00 / 950.00 760 / 860 540.50 / 540.50 Output Total 620 / 620 650 / 650 Balance 330.00 / 330.00 760 / 660 -109.50 / -109.50 Microbiology Past 72 Hours 08/10/19 09:25 Blood Culture (Wb) - Right Hand Blood Culture - Final No growth in 5 days. 08/10/19 09:10 Blood Culture (Wb) - Venous Bacteria Detection (PCR) - Final Strep not Strep pneumo 08/10/19 09:10 Blood Culture (Wb) - Venous Blood Culture - Final Streptococcus group C 08/11/19 13:15 Wound - Left Foot Gram Stain - Final 08/11/19 13:15 Wound - Left Foot Wound Culture - Final Streptococcus agalactiae (B) Staphylococcus aureus Gram positive cyn 08/11/19 09:50 Blood Culture (Wb) - Central Line Blood Culture - Preliminary No growth in 48 hours. 08/11/19 09:40 Blood Culture (Wb) - Left Hand Blood Culture - Preliminary No growth in 48 hours. 08/11/19 19:50 Stool Enteric Bacteriology - Final Laboratory Results 08/14/19 17:30: POC Glucose 197 H 08/14/19 21:12: POC Glucose 156 H 08/15/19 05:40: Sodium 138, Potassium 3.9, Chloride 108 H, Carbon Dioxide 19.0 L , Anion Gap 11, BUN 45 H, Creatinine 1.56 H, Estim Creat Clear Calc 44.27, Est GFR (MDRD) Af Amer 59 L, Est GFR (MDRD) Non-Af 49 L, BUN/Creatinine Ratio 28.8 H , Glucose 145 H, Calcium 8.3 L, Magnesium 2.2 08/15/19 06:41: POC Glucose 150 H 08/15/19 11:15: POC Glucose 145 H Current Medications Acetaminophen (Tylenol) 650 mg PO Q6H PRN PRN PRN Reason: Pain Score 1-10/Temp > 100.7 F Last Admin: 08/11/19 05:17 Dose: 650 mg Documented by: Albuterol Sulfate (Ventolin Aerosols) 2.5 mg INHALATION Q2H PRN PRN PRN Reason: SOB/Wheezing Calamine/Phenol (Calmoseptine Ointment) 1 applic TOPICAL BID [facility]; Protocol Last Admin: 08/15/19 09:52 Dose: 1 applicatio Documented by: Glucagon () 1 mg IM .X1 PRN PRN Reason: Hypoglycemia Heparin Sodium (Porcine) (Heparin Na) 5,000 unit SC Q8 [facility] Last Admin: 08/15/19 06:27 Dose: 5,000 unit Documented by: Piperacillin Sod/Tazobactam (Sod 3.375 gm/ Sodium Chloride) 50 mls @ 12.5 mls/hr IV Q8 [facility] Last Infusion: 08/15/19 11:09 Dose: Infused Documented by: Dextrose (Dextrose 10%-Water) 250 mls @ 999 mls/hr IV .Q16M PRN; Protocol PRN Reason: HYPOGLYCEMIA Sodium Chloride () 250 mls @ 15 mls/hr IV .[id number] PRN PRN Reason: Saline Flush Last Infusion: 08/15/19 11:09 Dose: 15 mls/hr Documented by: Sodium Chloride () 250 mls @ 15 mls/hr IV .[id number] PRN PRN Reason: Additional IVPB Infusion Insulin Human Lispro (Humalog Kwikpen (Bkc)) 0 unit SC ACHS [facility]; Protocol Last Admin: 08/15/19 11:18 Dose: Not Given Documented by: Metoclopramide HCl (Reglan) 5 mg IV Q6H PRN PRN PRN Reason: NAUSEA Nutritional Formula (Tomás - [place] Flavor) 1 packet PO BIDCM [facility] Last Admin: 08/15/19 09:50 Dose: Not Given Documented by: Nystatin (Mycostatin Powder) 1 applic TOPICAL BID [facility]; Protocol Last Admin: 08/15/19 09:51 Dose: 1 applicatio Documented by: Ondansetron HCl (Zofran) 4 mg IV Q6H PRN PRN PRN Reason: NAUSEA Sodium Chloride () 10 - 40 ml IV UD PRN PRN Reason: SALINE FLUSH Last Admin: 08/15/19 06:26 Dose: 20 ml Documented by: STROKE Vital Signs/Narrative: Vital Signs Temp Pulse Resp BP Pulse Ox 08/15/19 09:48 97.3 F L 79 16 98/68 96 Assessment/Plan This patient was seen in conjunction with Delfin Kapoor PA-C . I have independently interviewed and examined the patient and reviewed pertinent historical, laboratory, and other data. Please refer to Delfin Kapoor PA-C note for details of this patient's presentation, findings, and recommendations. I have reviewed Delfin Kapoor PA-C note and concur with documented findings. In brief, patient is a 58-year-old gentleman admitted with fever and chills and assessment of septic shock secondary to pneumonia with strep bacteremia was made admitted to the intensive care unit managed per protocol and later transferred to PCU patient hospital stay complicated by development of paralytic ileus Physical Examination: GENERAL: cooperative HEENT: Atraumatic; EYES; Anicteric, Normal Conjunctiva NECK; supple, normal thyroid, RESPIRATORY: Diminished to auscultation CARDIOVASCULAR: Regular S1 S2, GI: soft, hypooactive bowel sounds, : No Renal angle tenderness; EXTREMITIES: No edema, no clubbing, NEURO: Awake; no lateralizing signs. SKIN: No Rash PSYCH; Flat affect Assessment: 1. Septic shock secondary to pneumonia with group C strep bacteremia 2. Left lower extremity cellulitis 3. Paralytic ileus 4. Acute on chronic diastolic congestive heart failure 5. Diabetes mellitus type 2 6. Chronic A. fib 7. Chronic kidney disease 8. DVT prophylaxis; SC heparin Recommendations: 1. I have discussed the results of my overview and impressions with the patient 2. Options for management were reviewed Inpatient E&M: [id number] Subs Hosp L2
[2019-08-15 11:36] LABS: Bedside Glucose 145 mg/dL (70-110)
--- NOTE | 2019-08-15 13:28 | NURSING ---
wound photo: left foot
--- NOTE | 2019-08-15 14:47 | PCM.PN.ID ---
Subjective: Feeling better, no fever, leg less swollen and red. No cough or SOB. - Physical Exam Vitals/I&O's: Vital Signs Temp Pulse Resp BP Pulse Ox 97.3 F L 79 16 98/68 96 08/15/19 09:48 08/15/19 09:48 08/15/19 09:48 08/15/19 09:48 08/15/19 09:48 Oxygen Flow Rate (L/min) 2 Oxygen Delivery Method Room Air Weight: 97.9 kg Body Mass Index (BMI) 34.0 Finger Stick Blood Glucose 87 Intake and Output for Last 24 Hours 08/13/19 08/14/19 08/15/19 23:59 23:59 23:59 Intake Total 950.00 / 950.00 760 / 860 578.75 / 578.75 Output Total 620 / 620 650 / 650 Balance 330.00 / 330.00 760 / 660 -71.25 / -71.25 General: Alert, Cooperative, No apparent distress Lungs: Clear to auscultation, Normal air movement Cardiovascular: Regular rate, Regular Rhythm Abdomen: Soft, Non Tender, Non-Distended Skin: - - LLE less indurated, less red Microbiology Past 72 Hours 08/10/19 09:25 Blood Culture (Wb) - Right Hand Blood Culture - Final No growth in 5 days. 08/10/19 09:10 Blood Culture (Wb) - Venous Bacteria Detection (PCR) - Final Strep not Strep pneumo 08/10/19 09:10 Blood Culture (Wb) - Venous Blood Culture - Final Streptococcus group C 08/11/19 13:15 Wound - Left Foot Gram Stain - Final 08/11/19 13:15 Wound - Left Foot Wound Culture - Final Streptococcus agalactiae (B) Staphylococcus aureus Gram positive cyn 08/11/19 09:50 Blood Culture (Wb) - Central Line Blood Culture - Preliminary No growth in 48 hours. 08/11/19 09:40 Blood Culture (Wb) - Left Hand Blood Culture - Preliminary No growth in 48 hours. 08/11/19 19:50 Stool Enteric Bacteriology - Final Laboratory Results 08/14/19 17:30: POC Glucose 197 H 08/14/19 21:12: POC Glucose 156 H 08/15/19 05:40: Sodium 138, Potassium 3.9, Chloride 108 H, Carbon Dioxide 19.0 L, Anion Gap 11, BUN 45 H, Creatinine 1.56 H, Estim Creat Clear Calc 44.27, Est GFR (MDRD) Af Amer 59 L, Est GFR (MDRD) Non-Af 49 L, BUN/Creatinine Ratio 28.8 H, Glucose 145 H, Calcium 8.3 L, Magnesium 2.2 08/15/19 06:41: POC Glucose 150 H 08/15/19 11:15: POC Glucose 145 H Current Medications Acetaminophen (Tylenol) 650 mg PO Q6H PRN PRN PRN Reason: Pain Score 1-10/Temp > 100.7 F Last Admin: 08/11/19 05:17 Dose: 650 mg Documented by: Albuterol Sulfate (Ventolin Aerosols) 2.5 mg INHALATION Q2H PRN PRN PRN Reason: SOB/Wheezing Calamine/Phenol (Calmoseptine Ointment) 1 applic TOPICAL BID [facility]; Protocol Last Admin: 08/15/19 09:52 Dose: 1 applicatio Documented by: Glucagon () 1 mg IM .X1 PRN PRN Reason: Hypoglycemia Heparin Sodium (Porcine) (Heparin Na) 5,000 unit SC Q8 [facility] Last Admin: 08/15/19 13:42 Dose: 5,000 unit Documented by: Piperacillin Sod/Tazobactam (Sod 3.375 gm/ Sodium Chloride) 50 mls @ 12.5 mls/hr IV Q8 [facility] Last Admin: 08/15/19 13:42 Dose: 12.5 mls/hr Documented by: Dextrose (Dextrose 10%-Water) 250 mls @ 999 mls/hr IV .Q16M PRN; Protocol PRN Reason: HYPOGLYCEMIA Sodium Chloride () 250 mls @ 15 mls/hr IV .[id number] PRN PRN Reason: Saline Flush Last Infusion: 08/15/19 13:42 Dose: 0 mls/hr Documented by: Sodium Chloride () 250 mls @ 15 mls/hr IV .[id number] PRN PRN Reason: Additional IVPB Infusion Insulin Human Lispro (Humalog Kwikpen (Bkc)) 0 unit SC ACHS [facility]; Protocol Last Admin: 08/15/19 11:18 Dose: Not Given Documented by: Metoclopramide HCl (Reglan) 5 mg IV Q6H PRN PRN PRN Reason: NAUSEA Nutritional Formula (Tomás - [place] Flavor) 1 packet PO BIDCM [facility] Last Admin: 08/15/19 09:50 Dose: Not Given Documented by: Nystatin (Mycostatin Powder) 1 applic TOPICAL BID [facility]; Protocol Last Admin: 08/15/19 09:51 Dose: 1 applicatio Documented by: Ondansetron HCl (Zofran) 4 mg IV Q6H PRN PRN PRN Reason: NAUSEA Sodium Chloride () 10 - 40 ml IV UD PRN PRN Reason: SALINE FLUSH Last Admin: 08/15/19 06:26 Dose: 20 ml Documented by: Medical Necessity - Tobacco Use Smoking Status: Former smoker Tobacco Use: Non-smoker Route of nutrition/ use of supplements: [] Nutritional Intake: [] IV Site: [] Ureña Catheter: [] - Assessment/Plan Antibiotics: [] Assessment/Plan: [] septic shock with strep seen in single bcx - p/w fever, myalgias, cough/SOB, lymphopenia, normal PCT, hypotension, normal wbc. Neg resp pcr panel. LLE with medial redness, induration, warmth, but not tender. Has dry ulcer on bottom of L foot. Echo showed no veg, EF 10-15%. Low suspicion for COVID19 at this point. He is out of isolation. Cont zosyn. Cdiff was neg. Plan on stopping abx tomorrow. Leg much improved. Will follow
[2019-08-15] MEDS: Ondansetron 4 MG/2 ML Vial IV ×2 (15:14→22:03)
[2019-08-15 18:16] LABS: Bedside Glucose 120 mg/dL (70-110)
[2019-08-15] MEDS: Insulin Lispro 100 UNIT/ML INSULN.PEN SC (23:31)
[2019-08-15 23:46] LABS: Bedside Glucose 155 mg/dL (70-110)
[2019-08-16] VITALS (7 sets, daily range): BP systolic 104–113; BP diastolic 72–78; PULSE 65–84; RESP 16–18; TEMP 36.6–37.1; O2SAT 95–100
[2019-08-16] MEDS: Heparin Injection (Vial) 5,000 UNIT/ML VIAL 5000 UNIT SC (06:10)
[2019-08-16 06:30] LABS: Bedside Glucose 127 mg/dL (70-110)
[2019-08-16 06:57] LABS: ALB/GLOB Ratio 0.8 RATIO (0.9-2.4); AST(SGOT) 15 U/L (15-37); Alanine Aminotransfer ALT/SGPT 15 U/L (16-61); Albumin, Serum 2.8 g/dL (3.2-5.0); Alkaline Phosphatase 175 U/L (45-117); Anion Gap 10 (5-15); BUN 40 mg/dL (7-18); Calcium,Total 8.5 mg/dL (8.5-10.1); Chloride 112 mmol/L (98-107); Creatinine, Serum 1.43 mg/dL (0.70-1.30); EST Glomerular Filtration Rate 54 mL/min (>60); Est Glom Filt Rate - Afr Amer 66 mL/min (>60); Globulin 3.3 g/dL (2.2-4.2); Glucose 141 mg/dL (74-106); Potassium 3.7 mmol/L (3.5-5.1); Protein, Total 6.1 g/dL (6.4-8.2); Sodium Level 140 mmol/L (136-145)
[2019-08-16] MEDS: Ondansetron 4 MG/2 ML Vial IV (08:49)
[2019-08-16] MEDS: 0.9% Saline Lock 10 ML Syringe IV ×2 (08:49→11:23)
[2019-08-16] MEDS: Nystatin Powder 15gm Bottle 1 APPLIC TOPICAL (08:50)
[2019-08-16] MEDS: Menthol/Lanolin/Calamine/Znox 113 GM Tube 1 APPLIC TOPICAL (08:50)
--- NOTE | 2019-08-16 10:51 | PN.ID_ITS ---
Subjective: Feeling better, no fever, no cough, no pain in leg - Physical Exam Vitals/I&O's: Vital Signs Temp Pulse Resp BP Pulse Ox 97.8 F 80 18 113/77 100 08/16/19 09:20 08/16/19 09:20 08/16/19 09:20 08/16/19 09:20 08/16/19 09:20 Oxygen Flow Rate (L/min) 2 Oxygen Delivery Method Room Air Weight: 97.9 kg Body Mass Index (BMI) 34.0 Finger Stick Blood Glucose 87 Intake and Output for Last 24 Hours 08/14/19 08/15/19 08/16/19 23:59 23:59 23:59 Intake Total 760 / 860 1148.75 / 1148.75 406.75 / 406.75 Output Total 650 / 650 100 / 100 Balance 760 / 660 498.75 / 498.75 306.75 / 306.75 General: Alert, Cooperative, No apparent distress Lungs: Clear to auscultation, Normal air movement Cardiovascular: Regular rate, Regular Rhythm Abdomen: Soft, Non Tender, Non-Distended Skin: - - LLE erythema nearly resolved Microbiology Past 72 Hours 08/11/19 09:50 Blood Culture (Wb) - Central Line Blood Culture - Final No growth in 5 days. 08/11/19 09:40 Blood Culture (Wb) - Left Hand Blood Culture - Final No growth in 5 days. 08/10/19 09:25 Blood Culture (Wb) - Right Hand Blood Culture - Final No growth in 5 days. 08/10/19 09:10 Blood Culture (Wb) - Venous Bacteria Detection (PCR) - Final Strep not Strep pneumo 08/10/19 09:10 Blood Culture (Wb) - Venous Blood Culture - Final Streptococcus group C 08/11/19 13:15 Wound - Left Foot Gram Stain - Final 08/11/19 13:15 Wound - Left Foot Wound Culture - Final Streptococcus agalactiae (B) Staphylococcus aureus Gram positive cyn Laboratory Results 08/15/19 11:15: POC Glucose 145 H 08/15/19 18:05: POC Glucose 120 H 08/15/19 23:30: POC Glucose 155 H 08/16/19 06:00: Sodium 140, Potassium 3.7, Chloride 112 H, Carbon Dioxide 18.0 L , Anion Gap 10, BUN 40 H, Creatinine 1.43 H, Estim Creat Clear Calc 48.30, Est GFR (MDRD) Af Amer 66, Est GFR (MDRD) Non-Af 54 L, BUN/Creatinine Ratio 28.0 H, Glucose 141 H, Calcium 8.5, Total Bilirubin 1.60 H, AST 15, ALT 15 L, Alkaline Phosphatase 175 H, Total Protein 6.1 L, Albumin 2.8 L, Globulin 3.3, Albumin/Globulin Ratio 0.8 L 08/16/19 06:08: POC Glucose 127 H Current Medications Acetaminophen (Tylenol) 650 mg PO Q6H PRN PRN PRN Reason: Pain Score 1-10/Temp > 100.7 F Last Admin: 08/11/19 05:17 Dose: 650 mg Documented by: Albuterol Sulfate (Ventolin Aerosols) 2.5 mg INHALATION Q2H PRN PRN PRN Reason: SOB/Wheezing Calamine/Phenol (Calmoseptine Ointment) 1 applic TOPICAL BID [facility]; Protocol Last Admin: 08/16/19 08:50 Dose: 1 applicatio Documented by: Glucagon () 1 mg IM .X1 PRN PRN Reason: Hypoglycemia Heparin Sodium (Porcine) (Heparin Na) 5,000 unit SC Q8 [facility] Last Admin: 08/16/19 06:10 Dose: 5,000 unit Documented by: Dextrose (Dextrose 10%-Water) 250 mls @ 999 mls/hr IV .Q16M PRN; Protocol PRN Reason: HYPOGLYCEMIA Sodium Chloride () 250 mls @ 15 mls/hr IV .[id number] PRN PRN Reason: Saline Flush Last Infusion: 08/16/19 10:09 Dose: 15 mls/hr Documented by: Sodium Chloride () 250 mls @ 15 mls/hr IV .[id number] PRN PRN Reason: Additional IVPB Infusion Insulin Human Lispro (Humalog Kwikpen (Bkc)) 0 unit SC ACHS [facility]; Protocol Metoclopramide HCl (Reglan) 5 mg IV Q6H PRN PRN PRN Reason: NAUSEA Nutritional Formula (Tomás - [place] Flavor) 1 packet PO BIDCM [facility] Last Admin: 08/16/19 08:50 Dose: Not Given Documented by: Nystatin (Mycostatin Powder) 1 applic TOPICAL BID [facility]; Protocol Last Admin: 08/16/19 08:50 Dose: 1 applicatio Documented by: Ondansetron HCl (Zofran) 4 mg IV Q6H PRN PRN PRN Reason: NAUSEA Last Admin: 08/16/19 08:49 Dose: 4 mg Documented by: Sodium Chloride () 10 - 40 ml IV UD PRN PRN Reason: SALINE FLUSH Last Admin: 08/16/19 08:49 Dose: 20 ml Documented by: Medical Necessity - Tobacco Use Smoking Status: Former smoker Tobacco Use: Non-smoker Route of nutrition/ use of supplements: [] Nutritional Intake: [] IV Site: [] Ureña Catheter: [] - Assessment/Plan Antibiotics: [] Assessment/Plan: [] septic shock with strep seen in single bcx - p/w fever, myalgias, cough/SOB, lymphopenia, normal PCT, hypotension, normal wbc. Neg resp pcr panel. LLE with medial redness, induration, warmth, but not tender. Has dry ulcer on bottom of L foot. Echo showed no veg, EF 10-15%. Low suspicion for COVID19 at this point. He is out of isolation. Cdiff was neg. Stop zosyn today. Remove central line. Leg much improved. LLE redness nearly completely resolved. Will follow
[2019-08-16 11:06] LABS: Bedside Glucose 156 mg/dL (70-110)
--- NOTE | 2019-08-16 11:07 | DCINST_ITS ---
You will use the following diet at home:: Cardiac, Other - 2-3 g sodium per day, 1800 cc fluid restriction per day. Your food should be the consistency of: Regular Your liquids should be the consistency of: Regular/Thin Discharge Activity: Return to Normal Activity Call your doctor if you observe: Fever of 101 or Higher, Shortness of breath, Chest pain Allergies/Adverse Reactions: Allergies tramadol Allergy (Verified 08/10/19 08:49) Hives Penicillins Adverse Reaction (Verified 08/10/19 08:49) Nausea Medications to take at Discharge Acetaminophen [Tylenol] 650 tab PO Q4H PRN PRN 09/30/18 Argin/Glut/Cahmb/Collag/Mv-Min [Tomás Packet] 1 ea PO BID 09/30/18 Atorvastatin Calcium [Lipitor] 40 mg PO QHS 09/30/18 Capsaicin 1 applic TP QHS 09/30/18 Ferrous Sulfate [Ferosul] 325 mg PO BID 09/30/18 Gabapentin [Neurontin] 100 mg PO TIDCM 09/30/18 Insulin Lispro [Humalog] 16 unit SQ TIDCM 09/30/18 Mineral Oil/Petrolatum,White [Eucerin] 1 applic TOPICAL BID PRN 09/30/18 Sacubitril/Valsartan 24/26 mg [Entresto 24 mg-26 mg Tablet] 1 ea PO BID 09/30/18 Tamsulosin HCl [Flomax] 0.4 mg PO QHS 09/30/18 Insulin Lispro [Humalog KwikPen] See Protocol SQ ACHS insuln.pen 10/06/18 nitroglycerin 0.4 mg sublingual tablet See Rx Instructions .ROUTE .COMPLEX #25 each 11/10/18 aspirin 81 mg chewable tablet 81 mg PO DAILY@0800 #90 tab 04/13/19 famotidine 40 mg tablet 40 mg PO DAILY #90 tab 06/07/19 warfarin 4 mg tablet 4 mg PO DAILY #30 tab 06/13/19 furosemide 20 mg tablet 20 mg PO DAILY tab 06/22/19 furosemide 40 mg tablet 40 mg PO DAILY tab 06/22/19 glipizide 2.5 mg tablet, extended release 24 hr 2.5 mg PO BID 06/22/19 carvedilol 3.125 mg tablet 3.125 mg PO BID #60 tab 07/05/19 Primary Care Physician: Allen Motta MD [Primary Care Provider] - Please follow up with your Primary Care Physician in: 1-2 weeks Test Results: Test results from this visit will be discussed in further detail at your follow- up appointment, if applicable. Please Follow Up With: Allen Motta MD Please Follow Up With: Keven Willingham MD When: as directed Proposed Discharge Date: 08/16/19
--- NOTE | 2019-08-16 11:11 | CASEMGMT ---
Patient is going to be discharged today. NATALY spoke with patient and asked if he would like home therapy and a nurse at d/c. He said he would and he would like them through [facility] where his current aides are from. SW called [facility] and they will re-start his aide services, however SW needs to call [facility] to get the skilled services. NATALY called [facility] and left a message requesting a return call. NATALY also called patient's ed case manager, Rossi Salcedo and Monika Marin. NATALY left a message for Monika, but spoke with Rossi letting her know of d/c today and plan. She thanked NATALY for the update. Plan: home with resumption of waiver services and additional PT/OT and prison. Magalys [employer]
--- NOTE | 2019-08-16 11:11 | PCM.DC.SUM ---
<Delfin Kapoor - Last Filed: 08/16/19 11:38> Discharge Date and Diagnosis Date of Admission: 08/10/19 Date of Discharge: 08/16/19 - Primary Discharge Diagnosis Acute severe sepsis 2/2 LLE cellulitis and pneumonia, group C strep bacteremia Acute on chronic systolic CHF Ileus CAD Ischemic CM AICD in place T2DM Chronic Afib CKDIII - Secondary Discharge Diagnosis Chronic Problems (Last Reviewed 02/03/19 @ 10:[address] Keven Willingham MD) Presence of biventricular implantable cardioverter-defibrillator (ICD) (Chronic 07/11/15) Chronic kidney disease, stage 3 (Chronic) Secondary 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 (Chronic) skilled nursing (current) use of anticoagulants (Chronic) Old anterolateral wall myocardial infarction (Chronic) Chronic atrial fibrillation (Chronic) Acute on chronic systolic (congestive) heart failure (Chronic) Hyperlipidemia (Chronic) Essential (primary) hypertension (Chronic) Atherosclerosis of [place] coronary artery of [place] heart without angina pectoris (Chronic) PCI-EVAN-Mid LAD w/ 2.5 x 25 mm Promus and PCI-EVAN-D1 w/ 2.5 x 23 mm Promus 05/29/2009 Ischemic cardiomyopathy (Chronic) Hospital Course and Treatment Imaging Results: IMAGING: RAD/Chest 1 View (Portable) IMPRESSION: Findings in keeping with CHF. Venous Duplex Interpretation Summary There is no evidence of left lower extremity deep vein thrombosis. Left great saphenous vein appears patent and compressible segmentally. Pulsitile venous flow noted consistent with proximal venous hypertension--clinical correlation would be appropriate. Echo: Interpretation Summary Severely dilated left ventricle. The estimated ejection fraction is 10-15 %. There is severe global hypokinesis of the left ventricle. Moderately dilated right ventricle. Mild to moderate global right ventricular systolic dysfunction. The left atrium is severely enlarged. The right atrium is severely enlarged. Mild (1+) mitral valve insufficiency. Moderate (2+) tricuspid valve insufficiency. Right ventricular systolic pressure estimated to be 59 mmHg. Moderate pulmonary hypertension. The inferior vena cava is dilated Compared to echo report dated 09/08/2018, LV function has diminished from 25% to around 10 to 15%. RVSP has decreased from 67 to 59 mmHg. Preliminary results relayed to Dr. Ibrahim on 08/10/2019 at 1600 hrs. The study was technically difficult. Contrast injection was performed. RAD/CXR for Line Placement IMPRESSION: Mild left lower lobe infiltrate. . Central line placement on the left with tip at the level of the atrial caval junction. No associated pneumothorax RAD/Abdomen Single View (Portable) IMPRESSION: Normal x-ray examination of the abdomen and pelvis. US/Abdomen Limited IMPRESSION: Status post cholecystectomy with no distinct biliary dilatation. Slight irregularity throughout the liver margins which does not disc with very early liver disease, clinical correlation recommended. Remainder of the right upper quadrant ultrasound otherwise unremarkable. Possible small right-sided pleural effusion RAD/Abd Inc Decub and/or Erect IMPRESSION: There are a few bubbles of gas within the right upper quadrant projected over the inferior and to the liver which may represent a normal gas and a nondistended decompressed loop of bowel. Given the clinical history, if appropriate could consider a follow-up CT scan of the abdomen and pelvis. Otherwise there is a minimally distended appearance of the large bowel which is suggestive mild ileus. Status post IVC filter. Status post cholecystectomy. Status post right common iliac stent. Postoperative changes in the pelvis. RAD/Abd Inc Decub and/or Erect IMPRESSION: Nonspecific bowel gas pattern. There has been essentially no change as compared to prior study. Consultations Infectious disease: Nigel Aldana 08/11/19 11:59 Consult: Onc/Wound/motor patrol operator Routine Comment: Operations: None Procedures: 2-D Echocardiogram Summary of Care Provided: Hospital Course: The patient is a 58 year old M with pmhx of CAD, systolic CHF, ischemic CM, ICD in place, CKDIII, pulmonary htn, chronic Afib, HTN, HLD, who presented to the ER with fevers, chills, and SOB for 1 week. In the ER he appeared to have severe sepsis with pneumonia on CXR, LLE cellulitis, lactic acidosis. He was also felt to have acute on chronic systolic CHF as he had a known EF of 25%, had an elevated BNP, and appeared volume overloaded. He was admitted to the ICU and placed on levaquin and IV lasix. Given his severity and pnuemonia ID was consulted who did not feel the patient was appropriate for COVID testing. He was unable to support his blood pressure on his own and was temporary given pressure support with levophed. Zosyn was added. His blood cultures were positive gor group C strep. Wound culture demonstated Strep agalactiae, MSSA, and gram positive rods. Respiratory panel was negative. rapid flu was negative. He also had negative Enteric panel and Negative C diff tests. He was able to be taken off pressure support and transitioned to the PCU. Echocardiogram was obtained demonstrating that his EF had declined to 15%, however RVSP had improved from 67 to 59mmHg. He was transitioned to PO lasix. He was transitioned to zosyn only. He cleared his blood cultures. He completed a full course of abx therapy with zosyn while here. While his pna and cellulitis improved, he later developed an ileus with nausea vomiting and no bowel activity, imaging c/w ileus. He was made npo. Over the next two days this gradually resolved. He remained without respiratory symptoms and did not require oxygen. He had no further fevers and had resolution of leukocytosis. The day of discharge he moved his bowels with a moderate sized soft BM, and had his diet advanced. He was discharged home with home health care. He will need follow up with his PCP in 1-2 weeks. He will need to follow up with his director corporate communications as directed. This patient was seen by Delfin Kapoor PA-C under the supervision of Doctor Gayle. [] - Physical Exam Vitals/I&O's: Vital Signs Temp Pulse Resp BP Pulse Ox 97.8 F 80 18 113/77 100 08/16/19 09:20 08/16/19 09:20 08/16/19 09:20 08/16/19 09:20 08/16/19 09:20 Oxygen Flow Rate (L/min) 2 Oxygen Delivery Method Room Air Weight: 215 lb 13.321 oz Body Mass Index (BMI) 34.0 Finger Stick Blood Glucose 87 Intake and Output for Last 24 Hours 08/14/19 08/15/19 08/16/19 23:59 23:59 23:59 Intake Total 760 / 860 1148.75 / 1148.75 406.75 / 406.75 Output Total 650 / 650 100 / 100 Balance 760 / 660 498.75 / 498.75 306.75 / 306.75 General: Alert, Oriented x3, Cooperative HEENT: Atraumatic, PERRLA, EOMI, Normocephalic Neck: Supple, No JVD, Negative Carotid Bruits Lungs: Clear to auscultation, Normal air movement Cardiovascular: Regular rate, No murmurs Abdomen: Bowel Sounds Present, Soft, Non Tender Extremities: No edema, Capillary Refill Less than 3 Seconds Skin: No rashes, No breakdown Musculoskeletal: No Tenderness to Palpation of Joints or Extremities Neurological: Cranial nerves II-XII grossly intact Psych/Mental Status: Normal Affect, Appropriate, Alert and oriented to time, place, person, mood and affect Microbiology Past 72 Hours 08/11/19 09:50 Blood Culture (Wb) - Central Line Blood Culture - Final No growth in 5 days. 08/11/19 09:40 Blood Culture (Wb) - Left Hand Blood Culture - Final No growth in 5 days. 08/10/19 09:25 Blood Culture (Wb) - Right Hand Blood Culture - Final No growth in 5 days. 08/10/19 09:10 Blood Culture (Wb) - Venous Bacteria Detection (PCR) - Final Strep not Strep pneumo 08/10/19 09:10 Blood Culture (Wb) - Venous Blood Culture - Final Streptococcus group C 08/11/19 13:15 Wound - Left Foot Gram Stain - Final 08/11/19 13:15 Wound - Left Foot Wound Culture - Final Streptococcus agalactiae (B) Staphylococcus aureus Gram positive cyn Laboratory Results 08/15/19 11:15: POC Glucose 145 H 08/15/19 18:05: POC Glucose 120 H 08/15/19 23:30: POC Glucose 155 H 08/16/19 06:00: Sodium 140, Potassium 3.7, Chloride 112 H, Carbon Dioxide 18.0 L, Anion Gap 10, BUN 40 H, Creatinine 1.43 H, Estim Creat Clear Calc 48.30, Est GFR (MDRD) Af Amer 66, Est GFR (MDRD) Non-Af 54 L, BUN/Creatinine Ratio 28.0 H, Glucose 141 H, Calcium 8.5, Total Bilirubin 1.60 H, AST 15, ALT 15 L, Alkaline Phosphatase 175 H, Total Protein 6.1 L, Albumin 2.8 L, Globulin 3.3, Albumin/Globulin Ratio 0.8 L 08/16/19 06:08: POC Glucose 127 H 08/16/19 11:01: POC Glucose 156 H Current Medications Acetaminophen (Tylenol) 650 mg PO Q6H PRN PRN PRN Reason: Pain Score 1-10/Temp > 100.7 F Last Admin: 08/11/19 05:17 Dose: 650 mg Documented by: Albuterol Sulfate (Ventolin Aerosols) 2.5 mg INHALATION Q2H PRN PRN PRN Reason: SOB/Wheezing Calamine/Phenol (Calmoseptine Ointment) 1 applic TOPICAL BID [facility]; Protocol Last Admin: 08/16/19 08:50 Dose: 1 applicatio Documented by: Glucagon () 1 mg IM .X1 PRN PRN Reason: Hypoglycemia Heparin Sodium (Porcine) (Heparin Na) 5,000 unit SC Q8 MARISEL Last Admin: 08/16/19 06:10 Dose: 5,000 unit Documented by: Dextrose (Dextrose 10%-Water) 250 mls @ 999 mls/hr IV .Q16M PRN; Protocol PRN Reason: HYPOGLYCEMIA Sodium Chloride () 250 mls @ 15 mls/hr IV .[id number] PRN PRN Reason: Saline Flush Last Infusion: 08/16/19 10:09 Dose: 15 mls/hr Documented by: Sodium Chloride () 250 mls @ 15 mls/hr IV .[id number] PRN PRN Reason: Additional IVPB Infusion Insulin Human Lispro (Humalog Kwikpen (Bkc)) 0 unit SC ACHS [facility]; Protocol Metoclopramide HCl (Reglan) 5 mg IV Q6H PRN PRN PRN Reason: NAUSEA Nutritional Formula (Tomás - [place] Flavor) 1 packet PO BIDCM [facility] Last Admin: 08/16/19 08:50 Dose: Not Given Documented by: Nystatin (Mycostatin Powder) 1 applic TOPICAL BID [facility]; Protocol Last Admin: 08/16/19 08:50 Dose: 1 applicatio Documented by: Ondansetron HCl (Zofran) 4 mg IV Q6H PRN PRN PRN Reason: NAUSEA Last Admin: 08/16/19 08:49 Dose: 4 mg Documented by: Sodium Chloride () 10 - 40 ml IV UD PRN PRN Reason: SALINE FLUSH Last Admin: 08/16/19 08:49 Dose: 20 ml Documented by: Discharge Diet: Low fat/ Low Cholesterol, 1800 Calorie Control Diet, - - 2-3 g sodium restriction, 1800 cc fluid restriction Discharge Activity: Return to Normal Activity Call your doctor if you observe: Fever of 101 or Higher, Shortness of breath, Chest pain Home Medications: Medications to take at Discharge Acetaminophen [Tylenol] 650 tab PO Q4H PRN PRN 09/30/18 Argin/Glut/Cahmb/Collag/Mv-Min [Tomás Packet] 1 ea PO BID 09/30/18 Capsaicin 1 applic TP QHS 09/30/18 Ferrous Sulfate [Ferosul] 325 mg PO BID 09/30/18 Insulin Lispro [Humalog] 16 unit SQ TIDCM 09/30/18 Mineral Oil/Petrolatum,White [Eucerin] 1 applic TOPICAL BID PRN 09/30/18 Tamsulosin HCl [Flomax] 0.4 mg PO QHS 09/30/18 Insulin Lispro [Humalog KwikPen] See Protocol SQ ACHS insuln.pen 10/06/18 nitroglycerin 0.4 mg sublingual tablet See Rx Instructions .ROUTE .COMPLEX #25 each 11/10/18 aspirin 81 mg chewable tablet 81 mg PO DAILY@0800 #90 tab 04/13/19 famotidine 40 mg tablet 40 mg PO DAILY #90 tab 06/07/19 warfarin 4 mg tablet 4 mg PO DAILY #30 tab 06/13/19 furosemide 20 mg tablet 20 mg PO DAILY tab 06/22/19 glipizide 2.5 mg tablet, extended release 24 hr 2.5 mg PO BID 06/22/19 Primary Care Physician: Allen Motta MD [Primary Care Provider] - Please follow up with your Primary Care Physician in: 1-2 weeks Please Follow Up With: Allen Motta MD Please Follow Up With: Keven Willingham MD When: 2 weeks Disposition: Home with Home Health Minutes spent on discharge:: 35 Patient Condition:: Stable Medical Necessity - Tobacco Use Smoking Status: Former smoker Tobacco Use: Non-smoker Meaningful Use Info Meaningful Use Diagnoses (Choose all that apply): CHF - CHF LEONIDES/ARB ordered at discharge?: Yes Documented LVEF (%): 15 <Steffen Gayle - Last Filed: 08/16/19 11:53> Discharge Date and Diagnosis - Secondary Discharge Diagnosis Chronic Problems (Last Reviewed 02/03/19 @ 10:[address] 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 (Chronic) Old anterolateral wall myocardial infarction (Chronic) Chronic atrial fibrillation (Chronic) Acute on chronic systolic (congestive) heart failure (Chronic) Hyperlipidemia (Chronic) Essential (primary) hypertension (Chronic) Atherosclerosis of [place] coronary artery of [place] heart without angina pectoris (Chronic) PCI-EVAN-Mid LAD w/ 2.5 x 25 mm Promus and PCI-EVAN-D1 w/ 2.5 x 23 mm Promus 05/29/2009 Ischemic cardiomyopathy (Chronic) Hospital Course and Treatment Consultations 08/11/19 11:59 Consult: Onc/Wound/motor patrol operator Routine Comment: Summary of Care Provided: This patient was seen in conjunction with Delfin Kapoor PA-C . I have independently interviewed and examined the patient and reviewed pertinent historical, laboratory, and other data. Please refer to Delfin Kapoor PA-C note for details of this patient's presentation, findings, and recommendations. I have reviewed Delfin Kapoor PA-C note and concur with documented findings. In brief, patient is a 58-year-old gentleman admitted with fever and chills and assessment of septic shock secondary to pneumonia with strep bacteremia was made admitted to the intensive care unit managed per protocol and later transferred to PCU patient hospital stay complicated by development of paralytic ileus Assessment: 1. Septic shock secondary to pneumonia with group C strep bacteremia 2. Left lower extremity cellulitis 3. Paralytic ileus 4. Acute on chronic diastolic congestive heart failure 5. Diabetes mellitus type 2 6. Chronic A. fib 7. Chronic kidney disease 8. DVT prophylaxis; SC heparin Hospital course: As documented above - Physical Exam Vitals/I&O's: Vital Signs Temp Pulse Resp BP Pulse Ox 97.8 F 80 18 113/77 100 08/16/19 09:20 08/16/19 09:20 08/16/19 09:20 08/16/19 09:20 08/16/19 09:20 Oxygen Flow Rate (L/min) 2 Oxygen Delivery Method Room Air Weight: 97.9 kg Body Mass Index (BMI) 34.0 Finger Stick Blood Glucose 87 Intake and Output for Last 24 Hours 03/22/20 03/23/20 03/24/20 23:59 23:59 23:59 Intake Total 760 / 860 1148.75 / 1148.75 425.75 / 425.75 Output Total 650 / 650 100 / 100 Balance 760 / 660 498.75 / 498.75 325.75 / 325.75 Microbiology Past 72 Hours 08/11/19 09:50 Blood Culture (Wb) - Central Line Blood Culture - Final No growth in 5 days. 08/11/19 09:40 Blood Culture (Wb) - Left Hand Blood Culture - Final No growth in 5 days. 08/10/19 09:25 Blood Culture (Wb) - Right Hand Blood Culture - Final No growth in 5 days. 08/10/19 09:10 Blood Culture (Wb) - Venous Bacteria Detection (PCR) - Final Strep not Strep pneumo 08/10/19 09:10 Blood Culture (Wb) - Venous Blood Culture - Final Streptococcus group C 08/11/19 13:15 Wound - Left Foot Gram Stain - Final 08/11/19 13:15 Wound - Left Foot Wound Culture - Final Streptococcus agalactiae (B) Staphylococcus aureus Gram positive cyn Laboratory Results 08/15/19 18:05: POC Glucose 120 H 08/15/19 23:30: POC Glucose 155 H 08/16/19 06:00: Sodium 140, Potassium 3.7, Chloride 112 H, Carbon Dioxide 18.0 L, Anion Gap 10, BUN 40 H, Creatinine 1.43 H, Estim Creat Clear Calc 48.30, Est GFR (MDRD) Af Amer 66, Est GFR (MDRD) Non-Af 54 L, BUN/Creatinine Ratio 28.0 H, Glucose 141 H, Calcium 8.5, Total Bilirubin 1.60 H, AST 15, ALT 15 L, Alkaline Phosphatase 175 H, Total Protein 6.1 L, Albumin 2.8 L, Globulin 3.3, Albumin/Globulin Ratio 0.8 L 08/16/19 06:08: POC Glucose 127 H 08/16/19 11:01: POC Glucose 156 H Current Medications Acetaminophen (Tylenol) 650 mg PO Q6H PRN PRN PRN Reason: Pain Score 1-10/Temp > 100.7 F Last Admin: 08/11/19 05:17 Dose: 650 mg Documented by: Albuterol Sulfate (Ventolin Aerosols) 2.5 mg INHALATION Q2H PRN PRN PRN Reason: SOB/Wheezing Calamine/Phenol (Calmoseptine Ointment) 1 applic TOPICAL BID [facility]; Protocol Last Admin: 08/16/19 08:50 Dose: 1 applicatio Documented by: Glucagon () 1 mg IM .X1 PRN PRN Reason: Hypoglycemia Heparin Sodium (Porcine) (Heparin Na) 5,000 unit SC Q8 MARISEL Last Admin: 08/16/19 06:10 Dose: 5,000 unit Documented by: Dextrose (Dextrose 10%-Water) 250 mls @ 999 mls/hr IV .Q16M PRN; Protocol PRN Reason: HYPOGLYCEMIA Sodium Chloride () 250 mls @ 15 mls/hr IV .[id number] PRN PRN Reason: Saline Flush Last Infusion: 08/16/19 11:25 Dose: Infused Documented by: Sodium Chloride () 250 mls @ 15 mls/hr IV .[id number] PRN PRN Reason: Additional IVPB Infusion Insulin Human Lispro (Humalog Kwikpen (Bkc)) 0 unit SC ACHS [facility]; Protocol Last Admin: 08/16/19 11:22 Dose: 1 unit Documented by: Metoclopramide HCl (Reglan) 5 mg IV Q6H PRN PRN PRN Reason: NAUSEA Nutritional Formula (Tomás - [place] Flavor) 1 packet PO BIDCM [facility] Last Admin: 08/16/19 08:50 Dose: Not Given Documented by: Nystatin (Mycostatin Powder) 1 applic TOPICAL BID [facility]; Protocol Last Admin: 08/16/19 08:50 Dose: 1 applicatio Documented by: Ondansetron HCl (Zofran) 4 mg IV Q6H PRN PRN PRN Reason: NAUSEA Last Admin: 08/16/19 08:49 Dose: 4 mg Documented by: Sodium Chloride () 10 - 40 ml IV UD PRN PRN Reason: SALINE FLUSH Last Admin: 08/16/19 11:23 Dose: 10 ml Documented by: Inpatient E&M: [id number] [facility]
[2019-08-16] MEDS: Insulin Lispro 100 UNIT/ML INSULN.PEN SC (11:22)
--- NOTE | 2019-08-16 11:40 | DCINST_ITS ---
You will use the following diet at home:: Calorie/Carbohydrate Controlled (specify 1200, 1400, etc) - 1800 maria fernanda / day, Cardiac, Other - 2-3 g sodium daily, 1800 cc fluid restricition. Your food should be the consistency of: Regular Your liquids should be the consistency of: Regular/Thin Discharge Activity: Return to Normal Activity Call your doctor if you observe: Fever of 101 or Higher, Shortness of breath, Chest pain Additional Instructions: Continue daily weight checks, and LEONIDES wraps to your lower extremities daily. If 2 lb weight gain in 48 hours or 5 lb in 7 days, call doctor for instructions. You need a BMP (lab) this week, and an INR (lab) in 3 days, call cardiology or your family medicine doctor to arrange this. Allergies/Adverse Reactions: Allergies tramadol Allergy (Verified 08/10/19 08:49) Hives Penicillins Adverse Reaction (Verified 08/10/19 08:49) Nausea Medications to take at Discharge Acetaminophen [Tylenol] 650 tab PO Q4H PRN PRN 09/30/18 Argin/Glut/Cahmb/Collag/Mv-Min [Tomás Packet] 1 ea PO BID 09/30/18 Capsaicin 1 applic TP QHS 09/30/18 Ferrous Sulfate [Ferosul] 325 mg PO BID 09/30/18 Insulin Lispro [Humalog] 16 unit SQ TIDCM 09/30/18 Mineral Oil/Petrolatum,White [Eucerin] 1 applic TOPICAL BID PRN 09/30/18 Tamsulosin HCl [Flomax] 0.4 mg PO QHS 09/30/18 Insulin Lispro [Humalog KwikPen] See Protocol SQ ACHS insuln.pen 10/06/18 nitroglycerin 0.4 mg sublingual tablet See Rx Instructions .ROUTE .COMPLEX #25 each 11/10/18 aspirin 81 mg chewable tablet 81 mg PO DAILY@0800 #90 tab 04/13/19 famotidine 40 mg tablet 40 mg PO DAILY #90 tab 06/07/19 warfarin 4 mg tablet 4 mg PO DAILY #30 tab 06/13/19 furosemide 20 mg tablet 20 mg PO DAILY tab 06/22/19 glipizide 2.5 mg tablet, extended release 24 hr 2.5 mg PO BID 06/22/19 Primary Care Physician: Allen Motta MD [Primary Care Provider] - Please follow up with your Primary Care Physician in: 1-2 weeks Test Results: Test results from this visit will be discussed in further detail at your follow- up appointment, if applicable. Please Follow Up With: Keven Willingham MD When: 2 weeks Proposed Discharge Date: 08/16/19
--- NOTE | 2019-08-16 11:42 | PHA.DC.MR ---
Pharmacy Service has performed discharge medication reconciliation for this patient. The patient's discharge medication list was reviewed for discrepancies and discrepancies were resolved. Home Medications Acetaminophen [Tylenol] 650 tab PO Q4H PRN PRN 09/30/18 Argin/Glut/Cahmb/Collag/Mv-Min [Tomás Packet] 1 ea PO BID 09/30/18 Capsaicin 1 applic TP QHS 09/30/18 Ferrous Sulfate [Ferosul] 325 mg PO BID 09/30/18 Insulin Lispro [Humalog] 16 unit SQ TIDCM 09/30/18 Mineral Oil/Petrolatum,White [Eucerin] 1 applic TOPICAL BID PRN 09/30/18 Tamsulosin HCl [Flomax] 0.4 mg PO QHS 09/30/18 Insulin Lispro [Humalog KwikPen] See Protocol SQ ACHS insuln.pen 10/06/18 nitroglycerin 0.4 mg sublingual tablet See Rx Instructions .ROUTE .COMPLEX #25 each 11/10/18 aspirin 81 mg chewable tablet 81 mg PO DAILY@0800 #90 tab 04/13/19 famotidine 40 mg tablet 40 mg PO DAILY #90 tab 06/07/19 warfarin 4 mg tablet 4 mg PO DAILY #30 tab 06/13/19 furosemide 20 mg tablet 20 mg PO DAILY tab 06/22/19 glipizide 2.5 mg tablet, extended release 24 hr 2.5 mg PO BID 06/22/19
--- NOTE | 2019-08-16 11:47 | CASEMGMT ---
SW spoke with [facility] and they are not in network with his insurance. SW spoke with patient letting him know about [facility]. SW gave him a list of other in network agencies and he went with [facility]. [facility] can accept patient. Plan: Home with resumption of waiver services and additionally [facility] fdc, PT, and OT. Magalys BLAIR ECONOMIC RESEARCH ASSISTANT
--- NOTE | 2019-08-17 15:00 | CASEMGMT ---
DC DATE: 08.16.2019 DC DISPOSITION: Home with [facility] DC DIAGNOSIS: Sepsis, pneumonia, CHF LACE/STRATA: 12.3 F/U APPTS MADE PRIOR TO DC: PCP appt will be made by Dr. Motta's nurse PRESCRIPTIONS ACQUIRED BY PT: yes Intro role of CM to patient via phone. Pt states he will have [facility] nurse coming to home this afternoon. States he did have question re: medications. RN CM encouraged pt to have all his prescription bottles out and DC instructions for nurse to review with him. No other questions and no care improvement suggestions were given. Beto VASQUEZN RN ACM
== END 2019-08-16 15:05 | disposition home health service (06) | DRG 871 ==
LOC: ED 10:10 → ICU 10:46 → PCU 08-14 07:08 → ICU 08-15 09:11 → PCU 08-15 09:11
PROVIDERS: Hospitalist; Internal Medicine Critical Care Medicine; Physician Assistant; Admitting Provider Internal Medicine; Emergency Provider Emergency Medicine; PCP Family Medicine; Visit Provider Internal Medicine
DX: A40.8 Other streptococcal sepsis (principal); R65.21 Severe sepsis with septic shock; I50.23 Acute on chronic systolic (congestive) heart failure; J18.9 Pneumonia, unspecified organism; L03.116 Cellulitis of left lower limb; I48.20 Chronic atrial fibrillation, unspecified; I13.0 Hypertensive heart and chronic kidney disease with heart failure and stage 1 through stage 4 chronic kidney disease, or unspecified chronic kidney disease; K56.0 Paralytic ileus; E11.621 Type 2 diabetes mellitus with foot ulcer; L97.529 Non-pressure chronic ulcer of other part of left foot with unspecified severity; N18.3 Chronic kidney disease, stage 3 (moderate); I25.5 Ischemic cardiomyopathy; E11.22 Type 2 diabetes mellitus with diabetic chronic kidney disease; I25.10 Atherosclerotic heart disease of native coronary artery without angina pectoris; I27.21 Secondary pulmonary arterial hypertension; E78.5 Hyperlipidemia, unspecified; Z95.5 Presence of coronary angioplasty implant and graft; Z79.01 Long term (current) use of anticoagulants; Z95.810 Presence of automatic (implantable) cardiac defibrillator; B95.1 Streptococcus, group B, as the cause of diseases classified elsewhere; B95.61 Methicillin susceptible Staphylococcus aureus infection as the cause of diseases classified elsewhere; Z87.891 Personal history of nicotine dependence; Z79.4 Long term (current) use of insulin
CPT/HCPCS: 36415; 71045; 74018; 74019; 76705; 80048; 80053; 81001; 82962; 83605; 83735; 83880; 84100; 84145; 84484; 85025; 85610; 87040; 87070; 87077; 87149; 87186; 87205; 87493; 87506; 87633; 87640; 87804; 93005; 93306; 93971; 97110; 97116; 97162; 97166; 97530; 97535; 99251; 99285; J7030; J7040; J7050; J7120; Q9957; A4216; C1751; C8929; G0463; J1940; J2405

== ENCOUNTER → 2019-08-20 15:06 | Outpatient (CLI) | payer MEDICARE, MEDICAID, SELFPAY ==
[2019-08-10 11:42] VITALS: BMI 34.0
== END ==
PROVIDERS: PCP Family Medicine; Referring Provider Internal Medicine Cardiovascular Disease; Visit Provider Internal Medicine Cardiovascular Disease
DX: Z79.01 Long term (current) use of anticoagulants (principal)
CPT/HCPCS: 80048; 85610

== ENCOUNTER 2019-08-22 08:08 | Outpatient (RCR) | payer MEDICARE, MEDICAID, SELFPAY ==
[2019-08-10 11:42] VITALS: BMI 34.0
[2019-08-20 15:28] LABS: International Normalized Ratio 1.5
[2019-08-20 15:37] LABS: Anion Gap 10 (5-15); BUN 33 mg/dL (7-18); BUN/Creat Ratio 26.6 RATIO (10-20); Calcium,Total 8.3 mg/dL (8.5-10.1); Chloride 108 mmol/L (98-107); Creatinine, Serum 1.24 mg/dL (0.70-1.30); EST Glomerular Filtration Rate 64 mL/min (>60); Est Glom Filt Rate - Afr Amer 77 mL/min (>60); Glucose 127 mg/dL (74-106); Potassium 4.2 mmol/L (3.5-5.1); Sodium Level 138 mmol/L (136-145)
== END 2019-08-22 18:00 | disposition home or self-care (01) ==
LOC: LAB 08:08
PROVIDERS: Family Provider Family Medicine; PCP Family Medicine; Referring Provider Internal Medicine Cardiovascular Disease; Visit Provider Internal Medicine Cardiovascular Disease
DX: I48.20 Chronic atrial fibrillation, unspecified (principal); Z79.01 Long term (current) use of anticoagulants
CPT/HCPCS: 80048; 85610

== ENCOUNTER 2019-08-30 14:21 | Inpatient (IN) | payer MEDICARE, MEDICAID, SELFPAY ==
[2019-08-10 11:42] VITALS: BMI 34.0
[2019-08-30 14:22] VITALS: BP 121/77; BP 122/71; PULSE 80; RESP 16; RESP 17; TEMP 35.9; O2SAT 100; BMI 34.0
--- NOTE | 2019-08-30 14:37 | EKG12_ITS ---
Test Reason : Blood Pressure : / mmHG Vent. Rate : 080 BPM Atrial Rate : 394 BPM P-R Int : 000 ms QRS Dur : 166 ms QT Int : 466 ms P-R-T Axes : 043 008 038 degrees QTc Int : 537 ms Ventricular-paced rhythm Abnormal ECG Confirmed by DANYEL DENNISON MD ([id number]), film or videotape editor CHRISTIAN HUIZAR ([id number]) on 09/01/2019 9:41:14 AM Referred By: Confirmed By:DANYEL DENNISON MD
--- NOTE | 2019-08-30 14:37 | RAD_ITS ---
STUDY: X-RAY CHEST REASON FOR EXAM: Male, 58 years old. CHF, SOB X 2 DAYS TECHNIQUE: Single AP portable view of the chest. COMPARISON: Comparison is made with prior examination of July 2019. FINDINGS: EKG electrodes are seen. Increased markings are seen in the posteromedial aspect of the left lower lobe suggestive of a infiltrate. Mild increased markings are also seen in the right middle lobe. This is superimposed on a mild degree of vascular congestion. There is no demonstrated pleural abnormality. There is borderline cardiomegaly. A right-sided dual-chamber pacemaker is seen. Normal mediastinum and katrina. Normal visualized pulmonary arteries. Normal visualized aortic arch and descending thoracic aorta. Normal visualized thoracic spine. Normal visualized ribs, clavicles, and shoulders. There is no demonstrated abnormality of the visualized soft tissue structures of the upper abdomen. RAD/Chest 1 View (Portable) IMPRESSION: Findings suggestive of a left lower lobe and right middle lobe infiltrate superimposed on mild degree of vascular congestion. Electronically Signed: Mann Prater, at 15:06 EDT , Service support ,
--- NOTE | 2019-08-30 14:40 | ED.VIS.GEN ---
History of Present Illness Chief Complaint: Male Pain/Injury Informant: Patient Narrative: Patient informs me that everything should be in the computer and that I should go look at it. The computer states he is here for testicular swelling. However is different scrotal edema with lower extremity swelling and shortness of breath. His history includes an ischemic cardiomyopathy with an ejection fraction of his last admission of 10 to 15%. He is currently taking Lasix 20 mg a day according to the computer. Patient states that since he left the hospital he has been swollen. He tells me that was 1 week ago but thankfully the computer informs me that it was 2 weeks ago. No chest pain. He sees Dr. Willingham for cardiology. He has a pacemaker that was recently checked and is on Coumadin. Past Medical History - Allergies and Home Meds Allergies/Adverse Reactions: Allergies tramadol Allergy (Verified 08/30/19 14:21) Hives Penicillins Adverse Reaction (Verified 08/30/19 14:21) Nausea Primary Care Physician: Allen Motta MD [Primary Care Provider] - Surgical History: angioplasty, cholecystectomy, pacemaker implantation, - Smoking Status: Former smoker - Family History Paternal Family History: Family History (Last Reviewed 02/03/19 @ 10:[address] Keven Willingham MD) Father Hypertension CAD (coronary artery disease) Sister Cancer Family History: Reports: Heart Disease - CAD; at approximately 45 years of age Maternal Family History: Family History (Last Reviewed 02/03/19 @ 10:[address] Keven Willingham MD) Father Hypertension CAD (coronary artery disease) Sister Cancer Family History: Reports: Cancer - lung cancer Review of Systems General: Denies: Chills, Fever, Sweats Eyes: Denies: Visual changes - bilaterally, Diplopia ENT: Denies: Rhinorrhea, Sore throat Cardiovascular: Denies: Chest pain, Palpitations Respiratory: Reports: Dyspnea, Dyspnea on exertion, Orthopnea. Denies: Cough Gastrointestinal: Denies: Abdominal pain, Nausea, Vomiting, Diarrhea, Melena, Hematochezia Genitourinary: Reports: - - Scrotal swelling. Denies: Dysuria, Hematuria, Frequency Musculoskeletal: Reports: Swelling. Denies: Back pain, Extremity Pain Skin: Denies: Rash, Wounds Neurological: Denies: Headache, Weakness, Numbness Physical Exam Vital Signs/Narrative: Vital Signs Temp Pulse Resp BP Pulse Ox 08/30/19 14:22 96.6 F L 80 17 121/77 H 100 Inital Vital Signs reviewed: Yes General: Well nourished, Well developed, No Acute Distress Head: Normocephalic, Atraumatic Eyes: Perrl, EOMI ENT: Moist mucous membranes, No rhinorrhea Neck: Supple, Nontender Cardiovascular: Regular rate, Regular rhythm, No murmurs Respiratory: No distress, Chest nontender, Rales Abdomen: Soft, Nontender, Nondistended, Normal bowel sounds, - - There is edema of the skin of the abdominal wall. : - - Patient has diffuse scrotal and penile swelling. Back: Nontender, Normal Inspection Extremities: Edema - Lower extremity swelling. Skin: Normal color, No rash Neurological: Alert, Oriented x3, Cranial nerves II-XII grossly intact, Normal Strength, Normal Sensation Diagnostic/Tx/Re-eval - Medical Decision Making Patient is EKG is ventricularly paced with underlying A. fib which is chronic. White count is normal. His chest x-ray showed some mild pulmonary edema his history and physical are not consistent with bilateral pneumonia. His creatinine levels have significantly proved from his last admission at 1.2. He clearly has anasarca and our plan is IV diuretics. He has some significant dyspnea with even the slightest motion from moving from the chair to the bed. He is however not hypoxic. ED Disposition - Plan for ED Patient: Disposition: [facility] Hospital or Unit Diagnosis: Acute congestive heart failure, Anasarca Referrals: Allen Motta MD [Primary Care Provider] -
[2019-08-30 15:13] LABS: Bacteria 0 SEEN /hpf (None Seen); Mucous, Urine 0 SEEN /hpf (<or=2+); Red Blood Cells-Urine 0 SEEN /hpf (0-5); Squamous Epithelial Cells - UA 0 SEEN /hpf (0-5); White Blood Cells 0 SEEN /hpf (0-5)
[2019-08-30 15:14] LABS: Color, Urine Amber (Yellow); Glucose, Dipstick Normal (Normal); Ketone-Dipstick Negative (Negative); Leukocyte Esterase-Dipstick 25 /ul (Negative); Nitrite-Dipstick Negative (Negative); Occult Blood-Urine Negative /ul (Negative); Protein-Dipstick 30 mg/dl (Negative); Urine Clarity Clear (Clear); Urine Urobilinogen 1 mg/dl (Normal)
[2019-08-30 15:19] LABS: Absolute Lymphocyte Count 0.41 X10^3/uL (0.83-4.51); Absolute Neutrophil Count 3.5 X10^3/uL (2.0-7.7); Basophil# 0.02 X10^3/uL; Basophil% 0.5 % (0-1); Eosinophil# 0.03 X10^3/uL; Eosinophils% 0.7 % (0-5); Hematocrit 46.3 % (40-54); Hemoglobin 14.6 g/dL (13.0-16.5); Lymphocyte # 0.41 X10^3/ul (4.0); Lymphocyte % 9.3 % (19-41); Mean Corp Hgb Conc 31.5 g/dL (32-36); Mean Corpuscular Hgb 29.5 pg (27.0-32.0); Mean Corpuscular Volume 93.5 fL (80-94); Mean Platelet Vol. 11.3 fl (6.2-12.0); Monocyte# 0.38 X10^3/uL; Monocyte% 8.7 % (0-10); NRBC Flagged by Analyzer 0 % (0-5); Neutrophil # 3.54 X10^3/uL (2.7-7.7); Neutrophil % 80.6 % (47-70); POSITIVE DIFFERENTIAL YES; Platelet Count 118 K/mm3 (150-450); RBC Distribution Width SD 54.7 fl (35.1-43.9); Red Blood Count 4.95 M/mm3 (4.6-6.2); White Blood Count 4.4 K/mm3 (4.4-11.0)
[2019-08-30 15:21] LABS: Urine Bilirubin Dipstick 1 mg/dL (Negative)
[2019-08-30 15:24] LABS: Hyaline Cast 50-100 SEEN /lpf (0-5)
[2019-08-30 15:27] LABS: Differential Indicated SCAN CRITERIA MET
[2019-08-30 15:34] LABS: ALB/GLOB Ratio 0.9 RATIO (0.9-2.4); AST(SGOT) 19 U/L (15-37); Alanine Aminotransfer ALT/SGPT 17 U/L (16-61); Albumin, Serum 3.5 g/dL (3.2-5.0); Alkaline Phosphatase 304 U/L (45-117); Anion Gap 6 (5-15); BUN 18 mg/dL (7-18); BUN/Creat Ratio 14.5 RATIO (10-20); Chloride 111 mmol/L (98-107); Creatinine, Serum 1.24 mg/dL (0.70-1.30); EST Glomerular Filtration Rate 64 mL/min (>60); Est Glom Filt Rate - Afr Amer 77 mL/min (>60); Glucose 85 mg/dL (74-106); Potassium 4.5 mmol/L (3.5-5.1); Protein, Total 7.5 g/dL (6.4-8.2); Sodium Level 142 mmol/L (136-145)
[2019-08-30 15:36] LABS: BNP,B-Type NATRIURETIC PEPTIDE 793.6 pg/mL (0-100); International Normalized Ratio 2.9; Prothrombin Time (Protime)PT. 29.5 SECONDS (11.7-14.9)
[2019-08-30] MEDS: Furosemide 100 MG/10 ML Vial 80 MG IV (15:41)
--- NOTE | 2019-08-30 15:44 | NURSING ---
DR DIAMOND ALFARO
--- NOTE | 2019-08-30 15:59 | NURSING ---
PCU CHF DIAMOND
--- NOTE | 2019-08-30 16:00 | HP.PCM_ITS ---
<Delfin Kapoor - Last Filed: 08/30/19 16:13> Problem List (1) Acute on chronic systolic (congestive) heart failure Status: Acute (2) Presence of biventricular implantable cardioverter-defibrillator (ICD) Status: Chronic (3) Chronic kidney disease, stage 3 Status: Chronic (4) Secondary 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 Status: Chronic (5) Chronic atrial fibrillation Status: Chronic (6) Hyperlipidemia Status: Chronic Qualifiers: Hyperlipidemia type: unspecified Qualified Code(s): E78.5 - Hyperlipidemia, unspecified (7) Essential (primary) hypertension Status: Chronic (8) History of coronary artery stent placement Status: Resolved Comment: PCI-EVAN-Mid LAD w/ 2.5 x 25 mm Promus and PCI-EVAN-D1 w/ 2.5 x 23 mm Promus 05/29/2009 (9) Ischemic cardiomyopathy Status: Chronic (10) Diabetes Status: Chronic Qualifiers: Diabetes mellitus type: type 2 History of Present Illness Date of Admission: 08/30/19 Chief Complaint: LE edema The patient is a 58 year old M with pmhx of systolic CHF, ischemic CM, pulmonary HTN, EF 15%, chronic Afib, pacer and ICD in place, who came to the ER with increased LE edema. He was discharged from the hospital after an admission for multiple problems. These included acute systolic CHF exacerbation, sepsic shock 2/2 pna and LLE cellulitis, hypotension requiring pressors, and ileus. The patient was discharged home at that time. About 4 days prior the patient started to have increased LE edema. He also has had increased SOB with exertion and orthopnea. Currently he is 99% on room air in the ER at rest. He does also believe that his weights are improved from 217 to about 201 lbs, however he notes that his baseline is likely less than that more closer to 190. [] Past Medical History Past Medical History (Chronic Problems): Chronic Problems (Last Reviewed 02/03/19 @ 10:[address] 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 Keven Willingham MD) Chronic kidney disease, stage 3 (Chronic) N18.3 Secondary 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 (Chronic) I27.21 Old anterolateral wall myocardial infarction (Chronic) I25.2 Chronic atrial fibrillation (Chronic) I48.2 Acute on chronic systolic (congestive) heart failure (Acute) I50.23 Hyperlipidemia (Chronic) E78.5 Essential (primary) hypertension (Chronic) I10 Atherosclerosis of jackson coronary artery of jackson heart without angina pectoris (Chronic) I25.10 PCI-EVAN-Mid LAD w/ 2.5 x 25 mm Promus and PCI-EVAN-D1 w/ 2.5 x 23 mm Promus 05/29/2009 Ischemic cardiomyopathy (Chronic) I25.5 Non-healing ulcer of lower extremity L97.909 BPH (benign prostatic hyperplasia) N40.0 COPD (chronic obstructive pulmonary disease) J44.9 GERD (gastroesophageal reflux disease) K21.9 LV (left ventricular) mural thrombus I51.3 Obesity E66.9 Obstructive sleep apnea G47.33 Peripheral vascular occlusive disease I73.9 Type 2 diabetes mellitus E11.9 Pleural effusion, left (Resolved) J90 Allergies tramadol Allergy (Verified 08/30/19 14:21) Hives Penicillins Adverse Reaction (Verified 08/30/19 14:21) Nausea Home Medications: Ambulatory Orders Medication Instructions Recorded Acetaminophen [Tylenol] 650 tab PO Q4H PRN PRN 09/30/18 Argin/Glut/Cahmb/Collag/Mv-Min 1 ea PO BID 09/30/18 [Tomás Packet] Ferrous Sulfate [Ferosul] 325 mg PO BID 09/30/18 Insulin Lispro [Humalog] 16 unit SQ TIDCM 09/30/18 Mineral Oil/Petrolatum,White 1 applic TOPICAL BID PRN 09/30/18 [Eucerin] Tamsulosin HCl [Flomax] 0.4 mg PO QHS 09/30/18 aspirin 81 mg chewable tablet 81 mg PO DAILY@0800 #90 tab 04/13/19 famotidine 40 mg tablet 40 mg PO DAILY #90 tab 06/07/19 furosemide 20 mg tablet 20 mg PO DAILY tab 06/22/19 glipizide 2.5 mg tablet, extended 2.5 mg PO BID 06/22/19 release 24 hr Capsaicin 60 gm TP DAILY PRN PRN 08/30/19 Nitroglycerin 0.4 mg SL Q5M PRN 08/30/19 Warfarin Sodium [Coumadin] 4 mg PO DAILY 08/30/19 Surgical History: Surgical History (Last Reviewed 02/03/19 @ 10:[address] Keven Willingham MD) Presence of biventricular implantable cardioverter-defibrillator (ICD) (Chronic) Onset Date: 07/11/15 Z95.810 History of coronary artery stent placement (Resolved) Onset Date: 05/29/09 Z95.5 PCI-EVAN-Mid LAD w/ 2.5 x 25 mm Promus and PCI-EVAN-D1 w/ 2.5 x 23 mm Promus 05/29/2009 History of tqbtg-khfut-kxyidyk bypass Z95.828 History of cardiac pacemaker Z95.0 History of cholecystectomy Z98.890, Z90.49 Hx of atrioventricular node ablation Onset Date: 07/11/15 Z98.890 Surgical History: angioplasty, cholecystectomy, pacemaker implantation, - Psychiatric History: No pertinent psych hx Smoking Status: Former smoker Tobacco Use: Non-smoker Alcohol: None Drugs: None - *Family History Paternal Family History: Family History (Last Reviewed 02/03/19 @ 10:[address] Keven Willingham MD) Father Hypertension CAD (coronary artery disease) Sister Cancer History Items: Heart Disease - CAD; at approximately 45 years of age Maternal Family History: Family History (Last Reviewed 02/03/19 @ 10:[address] Keven Willingham MD) Father Hypertension CAD (coronary artery disease) Sister Cancer History Items: Cancer - lung cancer Review of Systems Constitutional: Denies: Chills, Fever, Weight Change HEENT: Denies: Head Aches, Sinus Congestion, Sinus Drainage Cardiovascular: Reports: Edema, Orthopnea. Denies: Chest Pain, Chest Pressure, Chest Tightness, Heaviness, Light Headedness, Palpitations Respiratory: Reports: Cough, Shortness of breath upon exertion. Denies: Shortness of breath at rest, Sputum production Gastrointestinal: Denies: Abdominal Pain, Nausea, Vomiting Genitourinary: Denies: Dysuria Musculoskeletal: Denies: Joint Pain, Joint Tenderness Skin: Denies: Rash, Wounds Neurological: Denies: Numbness, Tingling, Focal weakness Psychiatric: Denies: Anxiety, Depression, Homicidal Ideations, Suicidal Ideations Hematologic/ Lymphatic: Denies: Easy Bruising, Easy Bleeding VTE Information - Inpt Only VTE Present on Admission: No VTE Mechan Device Prophylaxis: None VTE Pharm Prophylaxis ordered?: Yes Patient Problems: Active and Suspected Problems (Last Reviewed 02/03/19 @ 10:[address] Keven Willingham MD) Acute congestive heart failure (Acute) Anasarca (Acute) - Physical Exam Vitals/I&O's: Vital Signs Temp Pulse Resp BP Pulse Ox 96.6 F L 80 17 122/71 H 100 08/30/19 14:22 08/30/19 14:22 08/30/19 14:22 08/30/19 14:22 08/30/19 14:22 Oxygen Delivery Method Room Air Weight: 201 lb Body Mass Index (BMI) 34.0 Finger Stick Blood Glucose 87 General: Alert, Oriented x3, Cooperative HEENT: Atraumatic, PERRLA, EOMI, Normocephalic Neck: Supple, No JVD, Negative Carotid Bruits Lungs: Clear to auscultation, Diminished Cardiovascular: Regular rate, No murmurs Abdomen: Bowel Sounds Present, Soft, Non Tender Extremities: No edema, Capillary Refill Less than 3 Seconds, Edema - 2+ pitting edema BLE Skin: No rashes, No breakdown Musculoskeletal: No Tenderness to Palpation of Joints or Extremities Neurological: Cranial nerves II-XII grossly intact Psych/Mental Status: Normal Affect, Appropriate, Alert and oriented to time, place, person, mood and affect Laboratory Results 08/30/19 15:00: WBC 4.4, RBC 4.95, Hgb 14.6, Hct 46.3, MCV 93.5, MCH 29.5, MCHC 31.5 L, RDW Std Deviation 54.7 H, RDW Coeff of Terrie 16.0 H, Plt Count 118 L, MPV 11.3, Immature Gran % (Auto) 0.200, Neut % (Auto) 80.6 H, Lymph % (Auto) 9.3 L, [place] % (Auto) 8.7, Eos % (Auto) 0.7, Baso % (Auto) 0.5, Absolute Neuts (auto) 3.5, Absolute Lymphs (auto) 0.41 L, Nucleated RBC % 0 08/30/19 15:00: Sodium 142, Potassium 4.5, Chloride 111 H, Carbon Dioxide 25.0, Anion Gap 6, BUN 18, Creatinine 1.24, Estim Creat Clear Calc 55.70, Est GFR (MDRD) Af Amer 77, Est GFR (MDRD) Non-Af 64, BUN/Creatinine Ratio 14.5, Glucose 85, Calcium 9.0, Total Bilirubin 2.00 H, AST 19, ALT 17, Alkaline Phosphatase 304 H, Troponin I < 0.015, Total Protein 7.5, Albumin 3.5, Globulin 4.0, Albumin/Globulin Ratio 0.9 08/30/19 15:00: B-Natriuretic Peptide 793.6 H 08/30/19 15:00: PT 29.5 H, INR 2.9 08/30/19 15:05: Urine Color [place], Urine Clarity Clear, Urine pH 5.0, Ur Specific [place] 1.020, Urine Protein 30 H, Urine Glucose (UA) Normal, Urine Ketones Negative, Urine Occult Blood Negative, Urine Nitrite Negative, Urine Bilirubin 1 H, Urine Urobilinogen 1 H, Ur Leukocyte Esterase 25 H, Urine RBC 0 SEEN, Urine WBC 0 SEEN, Ur Squamous Epith Cells 0 SEEN, Urine Bacteria 0 SEEN, Hyaline Casts 50-100 SEEN, Urine Mucus 0 SEEN Assessment/Plan All Active Problems (Last Reviewed 02/03/19 @ 10:[address] Keven Willingham MD) Acute congestive heart failure (Acute) Anasarca (Acute) Acute on chronic systolic (congestive) heart failure (Acute) History of coronary artery stent placement (Resolved 05/29/09) Altered mental status (Resolved) Pleural effusion, left (Resolved) Pneumonia (Resolved) 1. Acute on chronic systolic CHF, complicated by pulmonary HTN - EF15%, significant LE edema. Baseline weight about 189. Continue IV lasix 40 BID. Strict I/O, fluid restrict 1500 cc/day, sodium restrict. No hypoxia at this time. AICD in place. EKG shows paced rhythm no ischemic changes. Trop negaiatve. BNP 793. Continue daily LEONIDES wraps. -CXR with RML, LLL infiltrate, mild vascular congestion. -Echo on 08/10/19, defer repeat: EF 10 to 15%, paced septal motion, severe global hypokinesis of the left ventricle, severely enlarged left and right atria, dilated right ventricle, severely dilated left ventricle, 1+ MVI, 2+ TVI, RVSP 59 mmHg, moderate pulmonary hypertension, no aortic stenosis, dilated inferior vena cava. 2. Recent septic shock, pna, cellulitis, ileus - appears to be doing well from an infectious standpoint. No fever/leukocytosis. No abd pain. 3. Hx CAD, ischemic CM - continue aspirin. not on statin, beta ronn, or leonides inhibitor. Pt of Dr. Willingham. 4. chronic Afib, paced - warfarin therapeutic. trend INR, continue 5. T2DM - continue TID insulin, consider initiating weight based lantus 0.2u/kg. 6. CKDIII - stable 7. BPH - continue flomax. 8. GERD - continue pepcid DVT ppx: Warfarin therapeutic DC planning: PTOT, pt weak, ambulates small amount due to SOB. This patient was seen by Delfin Kapoor PA-C under the supervision of Doctor Josette. <Mark Finch - Last Filed: 08/30/19 16:23> History of Present Illness The patient is a 58 year old M presents with increasing lower extremity edema and scrotal and penile edema. Has had some increasing shortness of breath but states that his weight has gone down but his lower extremities have gotten p rofoundly more swollen. Patient states that he has been taking his medication as prescribed and when he goes to sleep he sleeps in a bed not in a recliner. He also states that he has been compliant with his CPAP as well [] Past Medical History Medical History: Medical History (Last Reviewed 08/30/19 @ 16:[address] Mark Finch, DO) Chronic kidney disease, stage 3 (Chronic) N18.3 Secondary 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 (Chronic) I27.21 Old anterolateral wall myocardial infarction (Chronic) I25.2 Chronic atrial fibrillation (Chronic) I48.2 Acute on chronic systolic (congestive) heart failure (Acute) I50.23 Hyperlipidemia (Chronic) E78.5 Essential (primary) hypertension (Chronic) I10 Atherosclerosis of jackson coronary artery of jackson heart without angina pectoris (Chronic) I25.10 PCI-EVAN-Mid LAD w/ 2.5 x 25 mm Promus and PCI-EVAN-D1 w/ 2.5 x 23 mm Promus 05/29/2009 Ischemic cardiomyopathy (Chronic) I25.5 Non-healing ulcer of lower extremity L97.909 BPH (benign prostatic hyperplasia) N40.0 COPD (chronic obstructive pulmonary disease) J44.9 GERD (gastroesophageal reflux disease) K21.9 LV (left ventricular) mural thrombus I51.3 Obesity E66.9 Obstructive sleep apnea G47.33 Peripheral vascular occlusive disease I73.9 Type 2 diabetes mellitus E11.9 Pleural effusion, left (Resolved) J90 Allergies tramadol Allergy (Verified 08/30/19 14:21) Hives Penicillins Adverse Reaction (Verified 08/30/19 14:21) Nausea Surgical History: Surgical History (Last Reviewed 08/30/19 @ 16:[address] Mark Finch DO) Presence of biventricular implantable cardioverter-defibrillator (ICD) (Chronic) Onset Date: 07/11/15 Z95.810 History of coronary artery stent placement (Resolved) Onset Date: 05/29/09 Z95.5 PCI-EVAN-Mid LAD w/ 2.5 x 25 mm Promus and PCI-EVAN-D1 w/ 2.5 x 23 mm Promus 05/29/2009 History of xehfp-maumh-ondpzld bypass Z95.828 History of cardiac pacemaker Z95.0 History of cholecystectomy Z98.890, Z90.49 Hx of atrioventricular node ablation Onset Date: 07/11/15 Z98.890 Surgical History: angioplasty, cholecystectomy, pacemaker implantation - Defibrillator Psychiatric History: No pertinent psych hx Smoking Status: Former smoker Tobacco Use: Non-smoker - *Family History Paternal Family History: Family History (Last Reviewed 08/30/19 @ 16:[address] Mark Finch DO) Father Hypertension CAD (coronary artery disease) Sister Cancer Maternal Family History: Family History (Last Reviewed 08/30/19 @ 16:[address] Mark Finch DO) Father Hypertension CAD (coronary artery disease) Sister Cancer Review of Systems Constitutional: Reports: Weight Change. Denies: Chills, Fever HEENT: Denies: Head Aches, Sinus Congestion, Sinus Drainage Cardiovascular: Reports: Edema, Orthopnea. Denies: Chest Pain, Chest Pressure, Chest Tightness, Heaviness, Light Headedness, Palpitations Respiratory: Reports: Cough, Shortness of breath upon exertion. Denies: Shortness of breath at rest, Sputum production Gastrointestinal: Denies: Abdominal Pain, Nausea, Vomiting Genitourinary: Denies: Dysuria Musculoskeletal: Denies: Joint Pain, Joint Tenderness Skin: Denies: Rash, Wounds Neurological: Denies: Focal weakness, Numbness, Tingling Psychiatric: Denies: Homicidal Ideations, Suicidal Ideations Comment: All review of systems were negative except as mentioned above in the history of present illness and the other review of systems. VTE Information - Inpt Only VTE Present on Admission: No VTE Mechan Device Prophylaxis: None VTE Pharm Prophylaxis ordered?: Yes - Physical Exam Vitals/I&O's: Vital Signs Temp Pulse Resp BP Pulse Ox 36.4 C L 80 18 135/102 H 97 08/30/19 16:07 08/30/19 16:07 08/30/19 16:07 08/30/19 16:07 08/30/19 16:07 Oxygen Delivery Method Room Air Weight: 91.172 kg Body Mass Index (BMI) 34.0 Finger Stick Blood Glucose 87 General: Alert, Cooperative HEENT: Atraumatic, Normocephalic Neck: No Nodes, Trachea Midline Lungs: Clear to auscultation, Diminished Cardiovascular: Regular rate, Regular Rhythm, Normal S2, No murmurs Abdomen: Bowel Sounds Present, Soft, Non Tender, Non-Distended Extremities: No Calf Tenderness, Edema - Taut and lower extremities bilaterally. Patient also has profound scrotal and penile edema Skin: No rashes, No breakdown Psych/Mental Status: Normal Affect, Appropriate Laboratory Results 08/30/19 15:00: WBC 4.4, RBC 4.95, Hgb 14.6, Hct 46.3, MCV 93.5, MCH 29.5, MCHC 31.5 L, RDW Std Deviation 54.7 H, RDW Coeff of [place]rie 16.0 H, Plt Count 118 L, MPV 11.3, Immature Gran % (Auto) 0.200, Neut % (Auto) 80.6 H, Lymph % (Auto) 9.3 L, [place] % (Auto) 8.7, Eos % (Auto) 0.7, Baso % (Auto) 0.5, Absolute Neuts (auto) 3.5, Absolute Lymphs (auto) 0.41 L, Nucleated RBC % 0 08/30/19 15:00: Sodium 142, Potassium 4.5, Chloride 111 H, Carbon Dioxide 25.0, Anion Gap 6, BUN 18, Creatinine 1.24, Estim Creat Clear Calc 55.70, Est GFR (MDRD) Af Amer 77, Est GFR (MDRD) Non-Af 64, BUN/Creatinine Ratio 14.5, Glucose 85, Calcium 9.0, Total Bilirubin 2.00 H, AST 19, ALT 17, Alkaline Phosphatase 304 H, Troponin I < 0.015, Total Protein 7.5, Albumin 3.5, Globulin 4.0, Albumin/Globulin Ratio 0.9 08/30/19 15:00: B-Natriuretic Peptide 793.6 H 08/30/19 15:00: PT 29.5 H, INR 2.9 08/30/19 15:05: Urine Color [place], Urine Clarity Clear, Urine pH 5.0, Ur Specific [place] 1.020, Urine Protein 30 H, Urine Glucose (UA) Normal, Urine Ketones Negative, Urine Occult Blood Negative, Urine Nitrite Negative, Urine Bilirubin 1 H, Urine Urobilinogen 1 H, Ur Leukocyte Esterase 25 H, Urine RBC 0 SEEN, Urine WBC 0 SEEN, Ur Squamous Epith Cells 0 SEEN, Urine Bacteria 0 SEEN, Hyaline Casts 50-100 SEEN, Urine Mucus 0 SEEN Assessment/Plan Patient seen and examined independently. Data reviewed. I agree with the above note by the physician family practice physician assistant. 1. Acute heart failure with reduced ejection fraction: EF of 15%. Patient was only on furosemide 20 mg daily at home. Patient did receive IV furosemide 80 mg in the emergency room. We will continue with 40 twice daily IV for now. Strict I's and O's fluid restriction 1500 cc/day. Currently, the patient is percent on room air but was told by the emergency room physician that the patient became very labored when he tried to move. Setting is reasonable to to this patient up as he is clearly volume overloaded and with IV furosemide. The hope is to get him improved and then transition him over to oral agents hopefully in the next 24 to 48 hours. Advanced care planning: Patient wishes to be full CODE STATUS. Inpatient E&M: 72476 Init Hosp L3
[2019-08-30 16:07] VITALS: BP 135/102; PULSE 80; RESP 18; TEMP 36.4; O2SAT 97
[2019-08-30 17:26] VITALS: BMI 37.2
[2019-08-30 17:30] VITALS: BP 117/84; PULSE 80; RESP 18; TEMP 36.6; O2SAT 100
[2019-08-30 17:36] VITALS: BMI 37.3
[2019-08-30 17:55] LABS: Bedside Glucose 66 mg/dL (70-110)
[2019-08-30] MEDS: Furosemide 40 MG/4 ML Vial IV (18:34)
[2019-08-30] MEDS: 0.9% Saline Lock 10 ML Syringe IV (18:35)
[2019-08-30 18:36] LABS: Hemoglobin A1c 6.5 % (4.2-6.3)
[2019-08-30] MEDS: Ferrous Sulfate 325 MG Tablet PO (18:36)
[2019-08-30 19:14] VITALS: PULSE 80
[2019-08-30 20:46] VITALS: PULSE 80
[2019-08-30 22:00] VITALS: BP 118/78; PULSE 79; RESP 18; TEMP 36.9; O2SAT 99
[2019-08-30] MEDS: Tamsulosin HCl 0.4 MG Capsule PO (22:31)
[2019-08-31] VITALS (15 sets, daily range): BP systolic 106–119; BP diastolic 73–84; PULSE 77–84; RESP 16–22; TEMP 36.4–36.8; O2SAT 95–100
[2019-08-31 01:15] LABS: Bedside Glucose 100 mg/dL (70-110)
[2019-08-31 05:56] LABS: Anion Gap 5 (5-15); BUN 23 mg/dL (7-18); BUN/Creat Ratio 19.3 RATIO (10-20); Calcium,Total 8.7 mg/dL (8.5-10.1); Chloride 113 mmol/L (98-107); Creatinine, Serum 1.19 mg/dL (0.70-1.30); EST Glomerular Filtration Rate 67 mL/min (>60); Est Glom Filt Rate - Afr Amer 81 mL/min (>60); Estimated Creatinine Clearance 58.04 ml/min; Glucose 83 mg/dL (74-106); Potassium 3.8 mmol/L (3.5-5.1); Sodium Level 142 mmol/L (136-145)
[2019-08-31 06:04] LABS: International Normalized Ratio 3.1; Prothrombin Time (Protime)PT. 31.2 SECONDS (11.7-14.9)
[2019-08-31 06:41] LABS: Bedside Glucose 64 mg/dL (70-110)
[2019-08-31 07:00] LABS: Bedside Glucose 64 mg/dL (70-110)
[2019-08-31 07:11] LABS: Bedside Glucose 72 mg/dL (70-110)
[2019-08-31] MEDS: Ferrous Sulfate 325 MG Tablet PO ×2 (08:10→16:55)
[2019-08-31] MEDS: Aspirin 81 MG TAB.CHEW PO (08:10)
[2019-08-31 09:21] LABS: Bedside Glucose 89 mg/dL (70-110)
[2019-08-31] MEDS: Furosemide 40 MG/4 ML Vial IV ×2 (11:04→16:55)
[2019-08-31] MEDS: Famotidine 20 MG Tablet 40 MG PO (11:04)
[2019-08-31] MEDS: 0.9% Saline Lock 10 ML Syringe IV ×3 (11:05→21:51)
--- NOTE | 2019-08-31 11:25 | PN_ITS ---
<Delfin Kapoor - Last Filed: 08/31/19 11:25> Patient Problems: Active and Suspected Problems (Last Reviewed 08/30/19 @ 16:[address] Mark Finch DO) Acute congestive heart failure (Acute) Anasarca (Acute) Reason for Visit: CHF Subjective: Pt reports increased urine production overnight. LE edema improved. Still SOB with exertion. Compliant with overnight CPAP. Vitals/I&O's: Vital Signs Temp Pulse Resp BP Pulse Ox 97.6 F L 79 18 114/83 H 98 08/31/19 08:05 08/31/19 08:05 08/31/19 08:05 08/31/19 08:05 08/31/19 08:22 Oxygen Flow Rate (L/min) 2 Oxygen Delivery Method Nasal Cannula Weight: 220 lb 7.396 oz Body Mass Index (BMI) 37.2 Finger Stick Blood Glucose 87 Intake and Output for Last 24 Hours 08/29/19 08/30/19 08/31/19 23:59 23:59 23:59 Intake Total 100 / 100 100 / 100 Output Total 400 / 400 Balance -300 / -300 100 / 100 General: Alert, Oriented x3, Cooperative HEENT: Atraumatic, PERRLA, EOMI, Normocephalic Neck: Supple, No JVD, Negative Carotid Bruits Lungs: Clear to auscultation, Diminished Cardiovascular: Regular rate, No murmurs Abdomen: Bowel Sounds Present, Soft, Non Tender Extremities: No edema, Capillary Refill Less than 3 Seconds Skin: No rashes, No breakdown Musculoskeletal: No Tenderness to Palpation of Joints or Extremities Neurological: Cranial nerves II-XII grossly intact Psych/Mental Status: Normal Affect, Appropriate, Alert and oriented to time, place, person, mood and affect Laboratory Results 08/30/19 15:00: WBC 4.4, RBC 4.95, Hgb 14.6, Hct 46.3, MCV 93.5, MCH 29.5, MCHC 31.5 L, RDW Std Deviation 54.7 H, RDW Coeff of Terrie 16.0 H, Plt Count 118 L, MPV 11.3, Immature Gran % (Auto) 0.200, Neut % (Auto) 80.6 H, Lymph % (Auto) 9.3 L, [place] % (Auto) 8.7, Eos % (Auto) 0.7, Baso % (Auto) 0.5, Absolute Neuts (auto) 3.5, Absolute Lymphs (auto) 0.41 L, Nucleated RBC % 0 08/30/19 15:00: Sodium 142, Potassium 4.5, Chloride 111 H, Carbon Dioxide 25.0, Anion Gap 6, BUN 18, Creatinine 1.24, Estim Creat Clear Calc 55.70, Est GFR (MDRD) Af Amer 77, Est GFR (MDRD) Non-Af 64, BUN/Creatinine Ratio 14.5, Glucose 85, Calcium 9.0, Total Bilirubin 2.00 H, AST 19, ALT 17, Alkaline Phosphatase 304 H, Troponin I < 0.015, Total Protein 7.5, Albumin 3.5, Globulin 4.0, Albumin/Globulin Ratio 0.9 08/30/19 15:00: B-Natriuretic Peptide 793.6 H 08/30/19 15:00: PT 29.5 H, INR 2.9 08/30/19 15:05: Urine Color Ginette, Urine Clarity Clear, Urine pH 5.0, Ur Specific [place] 1.020, Urine Protein 30 H, Urine Glucose (UA) Normal, Urine Ketones Negative, Urine Occult Blood Negative, Urine Nitrite Negative, Urine Bilirubin 1 H, Urine Urobilinogen 1 H, Ur Leukocyte Esterase 25 H, Urine RBC 0 SEEN, Urine WBC 0 SEEN, Ur Squamous Epith Cells 0 SEEN, Urine Bacteria 0 SEEN, Hyaline Casts 50-100 SEEN, Urine Mucus 0 SEEN 08/30/19 17:50: POC Glucose 66 L 08/30/19 18:10: Hemoglobin A1c 6.5 H 08/30/19 18:10: Troponin I < 0.015 08/30/19 21:24: Troponin I < 0.015 08/30/19 22:42: POC Glucose 100 08/31/19 05:10: PT 31.2 H, INR 3.1 08/31/19 05:10: Sodium 142, Potassium 3.8, Chloride 113 H, Carbon Dioxide 24.0, Anion Gap 5, BUN 23 H, Creatinine 1.19, Estim Creat Clear Calc 58.04, Est GFR (MDRD) Af Amer 81, Est GFR (MDRD) Non-Af 67, BUN/Creatinine Ratio 19.3, Glucose 83, Calcium 8.7 08/31/19 06:35: POC Glucose 64 L 08/31/19 06:55: POC Glucose 64 L 08/31/19 07:05: POC Glucose 72 08/31/19 07:56: POC Glucose 89 Current Medications Acetaminophen (Tylenol) 650 mg PO Q4H PRN PRN PRN Reason: Pain Score 1-10/10 Aspirin (Aspirin, Baby) 81 mg PO DAILY@0800 [facility] Last Admin: 08/31/19 08:10 Dose: 81 mg Documented by: Capsaicin (Zostrix) 1 applic TOPICAL DAILY PRN PRN; Protocol PRN Reason: NOT SPECIFIED Dextrose (D50w Syringe) 0 gm IV X1 PRN; Protocol PRN Reason: Hypoglycemia Famotidine (Pepcid) 40 mg PO DAILY [facility] Last Admin: 08/31/19 11:04 Dose: 40 mg Documented by: [facility] Last Admin: 08/31/19 08:10 Dose: 325 mg Documented by: Furosemide (Lasix) 40 mg IV BID@1000,1800 [facility] Last Admin: 08/31/19 11:04 Dose: 40 mg Documented by: Glipizide (Gl[facility]izide Er) [facility] Last Admin: 08/31/19 08:11 Dose: Not Given Documented by: Glucagon () 1 mg IM .X1 PRN PRN Reason: Hypoglycemia Insulin Human Lispro (Humalog Kwikpen (Bkc)) 16 unit SC 0800,1200,1700 [facility] Last Admin: 08/31/19 08:11 Dose: Not Given Documented by: Insulin Human Lispro (Humalog Kwikpen (Bkc)) 0 unit SC TIDAC [facility]; Protocol Last Admin: 08/31/19 07:11 Dose: Not Given Documented by: Multi-Ingredient Cream (Eucerin) 1 applic TOPICAL BID PRN [facility]; Protocol Nitroglycerin (Nitrostat) 0.4 mg SUBLINGUAL Q5M PRN PRN Reason: CHEST PAIN. Nutritional Formula (Tomás - [place] Flavor) 1 packet PO BID [facility] Last Admin: 08/31/19 11:04 Dose: 1 packet Documented by: Sodium Chloride () 10 - 40 ml IV UD PRN PRN Reason: SALINE FLUSH Last Admin: 08/31/19 11:05 Dose: 10 ml Documented by: Tamsulosin HCl (Flomax) 0.4 mg PO QHS [facility] Last Admin: 08/30/19 22:31 Dose: 0.4 mg Documented by: Warfarin Sodium (Coumadin (Pbkc)) 4 mg PO DAILY@1700 [facility]; Protocol STROKE Vital Signs/Narrative: Vital Signs Temp Pulse Resp BP Pulse Ox 08/31/19 08:22 98 08/31/19 08:05 97.6 F L 79 18 114/83 H 100 08/31/19 08:01 16 Medical Necessity - Tobacco Use Smoking Status: Former smoker Tobacco Use: Non-smoker Assessment/Plan All Active Problems (Last Reviewed 08/30/19 @ 16:[address] Mark Finch, DO) Acute congestive heart failure (Acute) Anasarca (Acute) Acute on chronic systolic (congestive) heart failure (Acute) History of coronary artery stent placement (Resolved 05/29/09) Altered mental status (Resolved) Pleural effusion, left (Resolved) Pneumonia (Resolved) 1. Acute on chronic systolic CHF, complicated by pulmonary HTN - EF15%, significant LE edema. Baseline weight about 189. Continue IV lasix 40 BID. Strict I/O, fluid restrict 1500 cc/day, sodium restrict. No hypoxia at this time. AICD in place. EKG shows paced rhythm no ischemic changes. Trop negaiatve. BNP 793. Continue daily LEONIDES wraps. -CXR with RML, LLL infiltrate, mild vascular congestion. -Pt improving, continue diuresis. -4 beats nonsustained vtach overnight. maintain on tele. -Echo on 08/10/19, defer repeat: EF 10 to 15%, paced septal motion, severe global hypokinesis of the left ventricle, severely enlarged left and right atria, dilated right ventricle, severely dilated left ventricle, 1+ MVI, 2+ TVI, RVSP 59 mmHg, moderate pulmonary hypertension, no aortic stenosis, dilated inferior vena cava. 2. Recent septic shock, pna, cellulitis, ileus - appears to be doing well from an infectious standpoint. No fever/leukocytosis. No abd pain. 3. Hx CAD, ischemic CM - continue aspirin. not on statin, beta ronn, or leonides inhibitor. Pt of Dr. Willingham. 4. chronic Afib, paced - warfarin therapeutic. trend INR, continue 5. T2DM - continue TID insulin, consider initiating weight based lantus 0.2u/kg. 6. CKDIII - stable 7. BPH - continue flomax. 8. GERD - continue pepcid 9. JUAN [place]IEGO - compliant with qhs CPAP DVT ppx: Warfarin therapeutic DC planning: PTOT, pt weak, ambulates small amount due to SOB. This patient was seen by Delfin Kapoor PA-C under the supervision of Doctor Nick <NickCarrington - Last Filed: 08/31/19 14:40> Reason for Visit: Acute on chronic systolic heart failure Objective: Afebrile. Vital signs stable. Pulse ox 94% on 2 L of oxygen. Patient uses CPAP at home. Denies chest pressure. Vitals/I&O's: Vital Signs Temp Pulse Resp BP Pulse Ox 98.0 F 80 16 111/69 94 08/31/19 12:00 08/31/19 12:00 08/31/19 12:00 08/31/19 12:00 08/31/19 12:00 Oxygen Flow Rate (L/min) 2 Oxygen Delivery Method Nasal Cannula Weight: 220 lb 7.396 oz Body Mass Index (BMI) 37.2 Finger Stick Blood Glucose 87 Intake and Output for Last 24 Hours 08/29/19 08/30/19 08/31/19 23:59 23:59 23:59 Intake Total 100 / 100 420 / 420 Output Total 400 / 400 Balance -300 / -300 420 / 420 General: Alert, Oriented x3, Cooperative HEENT: Atraumatic, PERRLA, EOMI, Normocephalic Neck: Supple, No JVD, Negative Carotid Bruits Lungs: Diminished, Rales - Right basilar fine crepitation present, Short of Breath, - - Right subclavicular AICD present Cardiovascular: Regular rate, Regular Rhythm, Normal S1, Normal S2, No murmurs Abdomen: Bowel Sounds Present, Soft, Non Tender, Non-Distended Extremities: No edema, Capillary Refill Less than 3 Seconds Skin: No rashes, No breakdown Musculoskeletal: No Tenderness to Palpation of Joints or Extremities, Arthritic Changes Neurological: Cranial nerves II-XII grossly intact, Deep Tendon Reflexes 2+/4 and Symmetrical, Neuro grossly intact Psych/Mental Status: Normal Affect, Appropriate Laboratory Results 08/30/19 15:00: WBC 4.4, RBC 4.95, Hgb 14.6, Hct 46.3, MCV 93.5, MCH 29.5, MCHC 31.5 L, RDW Std Deviation 54.7 H, RDW Coeff of Terrie 16.0 H, Plt Count 118 L, MPV 11.3, Immature Gran % (Auto) 0.200, Neut % (Auto) 80.6 H, Lymph % (Auto) 9.3 L, [place] % (Auto) 8.7, Eos % (Auto) 0.7, Baso % (Auto) 0.5, Absolute Neuts (auto) 3.5, Absolute Lymphs (auto) 0.41 L, Nucleated RBC % 0 08/30/19 15:00: Sodium 142, Potassium 4.5, Chloride 111 H, Carbon Dioxide 25.0, Anion Gap 6, BUN 18, Creatinine 1.24, Estim Creat Clear Calc 55.70, Est GFR (MDRD) Af Amer 77, Est GFR (MDRD) Non-Af 64, BUN/Creatinine Ratio 14.5, Glucose 85, Calcium 9.0, Total Bilirubin 2.00 H, AST 19, ALT 17, Alkaline Phosphatase 304 H, Troponin I < 0.015, Total Protein 7.5, Albumin 3.5, Globulin 4.0, Albumin/Globulin Ratio 0.9 08/30/19 15:00: B-Natriuretic Peptide 793.6 H 08/30/19 15:00: PT 29.5 H, INR 2.9 08/30/19 15:05: Urine Color [place], Urine Clarity Clear, Urine pH 5.0, Ur Specific [place] 1.020, Urine Protein 30 H, Urine Glucose (UA) Normal, Urine Ketones Negative, Urine Occult Blood Negative, Urine Nitrite Negative, Urine Bilirubin 1 H, Urine Urobilinogen 1 H, Ur Leukocyte Esterase 25 H, Urine RBC 0 SEEN, Urine WBC 0 SEEN, Ur Squamous Epith Cells 0 SEEN, Urine Bacteria 0 SEEN, Hyaline Casts 50-100 SEEN, Urine Mucus 0 SEEN 08/30/19 17:50: POC Glucose 66 L 08/30/19 18:10: Hemoglobin A1c 6.5 H 08/30/19 18:10: Troponin I < 0.015 08/30/19 21:24: Troponin I < 0.015 08/30/19 22:42: POC Glucose 100 08/31/19 05:10: PT 31.2 H, INR 3.1 08/31/19 05:10: Sodium 142, Potassium 3.8, Chloride 113 H, Carbon Dioxide 24.0, Anion Gap 5, BUN 23 H, Creatinine 1.19, Estim Creat Clear Calc 58.04, Est GFR (MDRD) Af Amer 81, Est GFR (MDRD) Non-Af 67, BUN/Creatinine Ratio 19.3, Glucose 83, Calcium 8.7 08/31/19 06:35: POC Glucose 64 L 08/31/19 06:55: POC Glucose 64 L 08/31/19 07:05: POC Glucose 72 08/31/19 07:56: POC Glucose 89 Current Medications Acetaminophen (Tylenol) 650 mg PO Q4H PRN PRN PRN Reason: Pain Score 1-1010 Aspirin (Aspirin, Baby) 81 mg PO DAILY@0800 [facility] Last Admin: 08/31/19 08:10 Dose: 81 mg Documented by: Capsaicin (Zostrix) 1 applic TOPICAL DAILY PRN PRN; Protocol PRN Reason: NOT SPECIFIED Dextrose (D50w Syringe) 0 gm IV X1 PRN; Protocol PRN Reason: Hypoglycemia Famotidine (Pepcid) 40 mg PO DAILY [facility] Last Admin: 08/31/19 11:04 Dose: 40 mg Documented by: Ferrous Sulfate ([facility]) [facility] Last Admin: 08/31/19 08:10 Dose: 325 mg Documented by: Furosemide (Lasix) 40 mg IV BID@1000,1800 [facility] Last Admin: 08/31/19 11:04 Dose: 40 mg Documented by: Glipizide (Glipizide Er) [facility] Last Admin: 08/31/19 08:11 Dose: Not Given Documented by: Glucagon () 1 mg IM .X1 PRN PRN Reason: Hypoglycemia Insulin Human Lispro (Humalog Kwikpen (Bkc)) 16 unit SC 0800,1200,1700 [facility] Last Admin: 08/31/19 13:36 Dose: Not Given Documented by: Insulin Human Lispro (Humalog Kwikpen (Bkc)) 0 unit SC TIDAC [facility]; Protocol Last Admin: 08/31/19 07:11 Dose: Not Given Documented by: Multi-Ingredient Cream (Eucerin) 1 applic TOPICAL BID PRN [facility]; Protocol Nitroglycerin (Nitrostat) 0.4 mg SUBLINGUAL Q5M PRN PRN Reason: CHEST PAIN. Nutritional Formula (Tomás - [place] Flavor) 1 packet PO BID [facility] Last Admin: 08/31/19 11:04 Dose: 1 packet Documented by: Sodium Chloride () 10 - 40 ml IV UD PRN PRN Reason: SALINE FLUSH Last Admin: 08/31/19 11:05 Dose: 10 ml Documented by: Tamsulosin HCl (Flomax) 0.4 mg PO QHS [facility] Last Admin: 08/30/19 22:31 Dose: 0.4 mg Documented by: Warfarin Sodium (Coumadin (Pbkc)) 4 mg PO DAILY@1700 [facility]; Protocol STROKE Vital Signs/Narrative: Vital Signs Temp Pulse Resp BP Pulse Ox 08/31/19 12:00 98.0 F 80 16 111/69 94 08/31/19 11:10 80 16 98 Assessment/Plan This patient was seen in conjunction with Delfin RODRIGUEZ. I have independently interviewed and examined the patient and reviewed pertinent history, examination findings, laboratory and plan of management. I have reviewed the note and agree with the documented findings with the few additional points. In brief, patient is 58-year-old gentleman with history of ischemic cardiomyopathy, EF 15% status post AICD is admitted with progressive worsening of shortness of breath for 2 to 3 weeks to the point that his dyspnea at rest, orthopnea and PND. Chest x-ray independently reviewed shows dilated pulmonary vessels and hilar congestion. Patient is admitted in PCU on Lasix 40 mg IV twice daily. On CHF core measures. Patient has PVCs and 4 beats of NSVT on telemetry. Echocardiogram on August 10, 2019 reported as EF 10 to 15%, severe global hypokinesis, severely enlarged left and right atria, dilated right ventricle, severely dilated left ventricle, RVSP 59 mmHg with moderate pulmonary hypertension and dilated IVC. Patient Coreg 3.125 and Entresto /, resumed with holding parameter. During previous admission with septic shock, cellulitis and ileus these medications were discontinued. Rest comorbidities as mentioned above including chronic A. fib on AICD, type 2 diabetes mellitus, CKD stage III, BPH, GERD, strictly sleep apnea on CPAP: Home medication reconciliation done. Glucose are well controlled. I have discussed my assessment with Delfin RODRIGUEZ and orders have been reviewed. Inpatient E&M: 56988 Subs Hosp L2
--- NOTE | 2019-08-31 14:53 | CHAPLAIN ---
Type of Pastoral Visit ___ Initial Visit ___ Follow-up Visit ___ On-call Visit ___ General Patient Visit ___ Spiritual Assessment ___ Family Conference ___ Bereavement ___ Rapid Response ___ Code Blue ___ Other (describe below) Pastoral Care Referral From ___ Patient ___ Family ___ Nurse ___ Physician ___ Python Java Developer ___ Vamp Maker ___ Other (describe below) Sacrament/Intervention ___ Active listening ___ Anointing ___ Amish ___ Bereavement ___ Communion ___ Isabella exploration ___ ___ Life review ___ Prayer ___ Reconciliation ___ Sacrament of Sick ___ Supportive presence ___ Wedding _x__ Other (describe below) Pastoral Comments patient is sleeping; did not disturb
--- NOTE | 2019-08-31 15:48 | NURSING ---
Patient states tray in front of him at this time is dinner. BGT complete per request, 72. Patient refusing 1700 scheduled 16 units of humalog at this time.
[2019-08-31 15:51] LABS: Bedside Glucose 72 mg/dL (70-110)
[2019-08-31] MEDS: Tamsulosin HCl 0.4 MG Capsule PO (21:46)
[2019-08-31] MEDS: SACUBITRIL/VALSARTAN 24/26 MG TABLET 1 EACH PO (21:46)
[2019-08-31] MEDS: Carvedilol 3.125 MG TABLET PO (21:47)
--- NOTE | 2019-08-31 22:01 | NURSING ---
Cleansed wound on L ventral foot with NS and covered with DSD. Tolerted well
[2019-08-31 22:16] LABS: Bedside Glucose 76 mg/dL (70-110)
[2019-09-01] VITALS (14 sets, daily range): BP systolic 97–121; BP diastolic 64–69; PULSE 80–97; RESP 13–18; TEMP 36.4–36.8; O2SAT 92–98
[2019-09-01 06:29] LABS: International Normalized Ratio 2.3; Prothrombin Time (Protime)PT. 24.6 SECONDS (11.7-14.9)
[2019-09-01 06:49] LABS: Anion Gap 6 (5-15); BUN 29 mg/dL (7-18); BUN/Creat Ratio 26.4 RATIO (10-20); Calcium,Total 8.1 mg/dL (8.5-10.1); Chloride 107 mmol/L (98-107); EST Glomerular Filtration Rate 73 mL/min (>60); Est Glom Filt Rate - Afr Amer 89 mL/min (>60); Estimated Creatinine Clearance 62.79 ml/min; Glucose 70 mg/dL (74-106); Potassium 3.5 mmol/L (3.5-5.1); Sodium Level 141 mmol/L (136-145)
[2019-09-01 07:00] LABS: Bedside Glucose 76 mg/dL (70-110)
--- NOTE | 2019-09-01 08:53 | CASEMGMT ---
Addendum entered by Rhona Staton 09/01/19 09:38: This RN CM received call from Monika Marin, pt's CM thru his insurance, and she states that they have pt set up with aide, meals and life alert. This RN CM asked Monika if she would be able to help pt with transportation also and she states she will work on that. Monika would like to be notified when pt ready for discharge. Monika's contact info: [phone]. This RN CM then received call from George at [facility] and she states that they have been active with pt for about 6 years. George states that pt is extremely non-compliant and that they have tried all sorts of ways to get pt to be compliant. Pt has been set up with [facility] to deliver meds, an electronic medminder box and even provided with a new scale to track daily weights. George states that pt will take the pills out of the medminder box because it is alarming but then he will not take them and just leave them on the counter. She states that pt does not track weights. George states that they will set up transportation for pt's appts and then pt will cancel transport and appt. This RN CM to room to discuss all with pt at this time. Yudelka VOSS CM Original Note: Readmission chart review: Pt initially admitted 08/09-08/16/2019 for severe sepsis/pna but then pt also developed an ileus while here. Pt with EF 10-15% on ECHO. Pt discharged with [facility] for SN, PT. Resumption of care order placed at this time. Pt readmitted 08/30/2019 for CHF and had only been on 20mg Lasix at home d/t other concerns while here during last admit. The plan was for the Lasix dose to be increased by PCP once home. CM to follow for any further discharge planning/needs. Pt does state transportation concerns but pt is reminded that he can set up his transportation thru his [facility], voices understanding. Yudelka VOSS CM
[2019-09-01] MEDS: Famotidine 20 MG Tablet 40 MG PO (09:20)
[2019-09-01] MEDS: Aspirin 81 MG TAB.CHEW PO (09:20)
[2019-09-01] MEDS: 0.9% Saline Lock 10 ML Syringe IV ×2 (09:20→17:01)
[2019-09-01] MEDS: Furosemide 40 MG/4 ML Vial IV ×2 (09:20→17:01)
[2019-09-01] MEDS: Ferrous Sulfate 325 MG Tablet PO ×2 (09:21→17:00)
[2019-09-01 11:31] LABS: Bedside Glucose 76 mg/dL (70-110)
--- NOTE | 2019-09-01 11:43 | PCM.PROGNOTE ---
<Judy Humphreys - Last Filed: 09/01/19 12:03> Patient Problems: Active and Suspected Problems (Last Reviewed 08/30/19 @ 16:[address] Mark Finch DO) Acute congestive heart failure (Acute) Anasarca (Acute) Subjective: Patient seen and examined. Reports improvement in breathing and lower extremity swelling. Denies chest pain. - Physical Exam Vitals/I&O's: Vital Signs Temp Pulse Resp BP Pulse Ox 97.6 F L 80 18 97/67 92 09/01/19 09:05 09/01/19 09:05 09/01/19 09:05 09/01/19 09:05 09/01/19 09:05 Oxygen Flow Rate (L/min) 2 Oxygen Delivery Method Room Air Weight: 220 lb 3.869 oz Body Mass Index (BMI) 37.2 Finger Stick Blood Glucose 87 Intake and Output for Last 24 Hours 08/30/19 08/31/19 09/01/19 23:59 23:59 23:59 Intake Total 100 / 100 1040 / 1040 100 / 100 Output Total 400 / 400 Balance -300 / -300 1040 / 1040 100 / 100 General: Alert, Oriented x3, Cooperative HEENT: Atraumatic, PERRLA, EOMI, Normocephalic Neck: Supple, No JVD, Negative Carotid Bruits Lungs: Clear to auscultation, Diminished Cardiovascular: Regular rate, No murmurs Abdomen: Bowel Sounds Present, Soft, Non Tender, Non-Distended Extremities: No clubbing, No cyanosis, Edema - Bilateral lower extremities, Vinnie wraps in place Skin: No rashes, No breakdown Musculoskeletal: No Tenderness to Palpation of Joints or Extremities Neurological: Cranial nerves II-XII grossly intact, Neuro grossly intact Psych/Mental Status: Normal Affect, Appropriate Laboratory Results 08/31/19 15:46: POC Glucose 72 08/31/19 21:39: POC Glucose 76 09/01/19 05:22: Sodium 141, Potassium 3.5, Chloride 107, Carbon Dioxide 28.0, Anion Gap 6, BUN 29 H, Creatinine 1.10, Estim Creat Clear Calc 62.79, Est GFR (MDRD) Af Amer 89, Est GFR (MDRD) Non-Af 73, BUN/Creatinine Ratio 26.4 H, Glucose 70 L, Calcium 8.1 L 09/01/19 05:22: PT 24.6 H, INR 2.3 09/01/19 05:22: Magnesium 2.0 09/01/19 06:50: POC Glucose 76 09/01/19 11:27: POC Glucose 76 Current Medications Acetaminophen (Tylenol) 650 mg PO Q4H PRN PRN PRN Reason: Pain Score 1-10/10 Aspirin (Aspirin, Baby) 81 mg PO DAILY@0800 [facility] Last Admin: 09/01/19 09:20 Dose: 81 mg Documented by: Capsaicin (Zostrix) 1 applic TOPICAL DAILY PRN PRN; Protocol PRN Reason: NOT SPECIFIED Carvedilol (Coreg) 3.125 mg PO BID [facility] Last Admin: 09/01/19 09:24 Dose: Not Given Documented by: Dextrose (D50w Syringe) 0 gm IV X1 PRN; Protocol PRN Reason: Hypoglycemia Famotidine (Pepcid) 40 mg PO DAILY [facility] Last Admin: 09/01/19 09:20 Dose: 40 mg Documented by: [facility] Last Admin: 09/01/19 09:21 Dose: 325 mg Documented by: Furosemide (Lasix) 40 mg IV BID@1000,1800 [facility] Last Admin: 09/01/19 09:20 Dose: 40 mg Documented by: Glipizide ([facility]ide Er) [facility] Last Admin: 09/01/19 09:21 Dose: 2.5 mg Documented by: Glucagon () 1 mg IM .X1 PRN PRN Reason: Hypoglycemia Insulin Human Lispro (Humalog Kwikpen (Bkc)) 16 unit SC 0800,1200,1700 [facility] Last Admin: 09/01/19 09:24 Dose: Not Given Documented by: Insulin Human Lispro (Humalog Kwikpen (Bkc)) 0 unit SC TIDAC [facility]; Protocol Last Admin: 09/01/19 06:54 Dose: Not Given Documented by: Multi-Ingredient Cream (Eucerin) 1 applic TOPICAL BID PRN [facility]; Protocol Nitroglycerin (Nitrostat) 0.4 mg SUBLINGUAL Q5M PRN PRN Reason: CHEST PAIN. Nutritional Formula (Tomás - Alden Flavor) 1 packet PO BID [facility] Last Admin: 09/01/19 09:20 Dose: 1 packet Documented by: Sacubitril/Valsartan (Entresto 24 Mg-26 Mg Tablet) 1 each PO BID [facility] Last Admin: 09/01/19 09:24 Dose: Not Given Documented by: Sodium Chloride () 10 - 40 ml IV UD PRN PRN Reason: SALINE FLUSH Last Admin: 09/01/19 09:20 Dose: 10 ml Documented by: Tamsulosin HCl (Flomax) 0.4 mg PO QHS [facility] Last Admin: 08/31/19 21:46 Dose: 0.4 mg Documented by: Warfarin Sodium (Coumadin (Pbkc)) 4 mg PO DAILY@1700 [facility]; Protocol Medical Necessity - Tobacco Use Smoking Status: Former smoker Tobacco Use: Non-smoker Assessment/Plan All Active Problems (Last Reviewed 08/30/19 @ 16:[address] Mark Finch, ) Acute congestive heart failure (Acute) Anasarca (Acute) Acute on chronic systolic (congestive) heart failure (Acute) History of coronary artery stent placement (Resolved 05/29/09) Altered mental status (Resolved) Pleural effusion, left (Resolved) Pneumonia (Resolved) 1. Acute on chronic systolic CHF/ischemic cardiomyopathy, complicated by pulmonary hypertension-status post ICD. BNP 793. Chest x-ray admission consistent with vascular congestion. Echocardiogram 08/11/2019 demonstrated EF 10 to 15%, mild mitral valve insufficiency, moderate tricuspid valve insufficiency, RVSP estimated to be 59 mmHg, moderate pulmonary hypertension. Patient follows with Dr. Willingham. Continue IV Lasix. Strict I&O. Daily weight. On Entresto, carvedilol. 2. Recent septic shock related to pneumonia and cellulitis-discharged 08/16/2019. Appears resolved. 3. Chronic atrial fibrillation status post ablation-on Coumadin, trend INR. 4. Chronic kidney disease stage III-stable. 5. Normocytic anemia, iron deficiency anemia-continue iron supplementation. Trend CBC. 6. Hypertension-stable, continue carvedilol, Entresto regimen. 7. Type 2 diabetes [id number] ACHS with sliding scale insulin. 8. PAD status post bypass surgery-Continue aspirin, coumadin. Follow-up with Dr. Bennett as scheduled. 9. CAD status post stents-continue aspirin, beta-ronn. 10. BPH-continue Flomax regimen. 11. JUAN DIEGO-continue home CPAP regimen. DVT prophylaxis- coumadin Discharge planning: Home with home health when stable. This patient was seen by PRIMITIVO Smith under the supervision of Dr. Romero. <Carrington Romero - Last Filed: 09/01/19 14:03> Subjective: Follow-up for acute on chronic heart failure Seen and examined. Patient on CPAP. Shortness of breath has improved. Has Vinnie wrap bandage in lower extremities. Chest pain. Hemodynamically stable. - Physical Exam Vitals/I&O's: Vital Signs Temp Pulse Resp BP Pulse Ox 97.6 F L 80 18 97/67 92 09/01/19 09:05 09/01/19 09:05 09/01/19 09:05 09/01/19 09:05 09/01/19 09:05 Oxygen Flow Rate (L/min) 2 Oxygen Delivery Method Room Air Weight: 220 lb 3.869 oz Body Mass Index (BMI) 37.2 Finger Stick Blood Glucose 87 Intake and Output for Last 24 Hours 08/30/19 08/31/19 09/01/19 23:59 23:59 23:59 Intake Total 100 / 100 1040 / 1040 460 / 460 Output Total 400 / 400 Balance -300 / -300 1040 / 1040 460 / 460 General: Alert, Oriented x3, Cooperative HEENT: Atraumatic, PERRLA, EOMI, Normocephalic Neck: Supple, No JVD, Negative Carotid Bruits Lungs: Clear to auscultation, No rhonchi, No wheeze, No rales, Diminished - Entry diminished in bilateral lung bases Cardiovascular: Regular rate, No murmurs Abdomen: Bowel Sounds Present, Soft, Non Tender, Non-Distended Extremities: Capillary Refill Less than 3 Seconds, Edema Skin: No rashes, No breakdown Musculoskeletal: No Tenderness to Palpation of Joints or Extremities, Arthritic Changes Neurological: Cranial nerves II-XII grossly intact, Deep Tendon Reflexes 2+/4 and Symmetrical, Neuro grossly intact Psych/Mental Status: Normal Affect, Appropriate Laboratory Results 08/31/19 15:46: POC Glucose 72 08/31/19 21:39: POC Glucose 76 09/01/19 05:22: Sodium 141, Potassium 3.5, Chloride 107, Carbon Dioxide 28.0, Anion Gap 6, BUN 29 H, Creatinine 1.10, Estim Creat Clear Calc 62.79, Est GFR (MDRD) Af Amer 89, Est GFR (MDRD) Non-Af 73, BUN/Creatinine Ratio 26.4 H, Glucose 70 L, Calcium 8.1 L 09/01/19 05:22: PT 24.6 H, INR 2.3 09/01/19 05:22: Magnesium 2.0 09/01/19 06:50: POC Glucose 76 09/01/19 11:27: POC Glucose 76 Current Medications Acetaminophen (Tylenol) 650 mg PO Q4H PRN PRN PRN Reason: Pain Score 1-10/10 Aspirin (Aspirin, Baby) 81 mg PO DAILY@0800 [facility] Last Admin: 09/01/19 09:20 Dose: 81 mg Documented by: Capsaicin (Zostrix) 1 applic TOPICAL DAILY PRN PRN; Protocol PRN Reason: NOT SPECIFIED Carvedilol (Coreg) 3.125 mg PO BID [facility] Last Admin: 09/01/19 09:24 Dose: Not Given Documented by: Dextrose (D50w Syringe) 0 gm IV X1 PRN; Protocol PRN Reason: Hypoglycemia Famotidine (Pepcid) 40 mg PO DAILY [facility] Last Admin: 09/01/19 09:20 Dose: 40 mg Documented by: Ferrous Sulfate ([facility] Sulfate) [facility] Last Admin: 09/01/19 09:21 Dose: 325 mg Documented by: Furosemide (Lasix) 40 mg IV BID@1000,1800 [facility] Last Admin: 09/01/19 09:20 Dose: 40 mg Documented by: Glipizide (Glipizide Er) [facility] Last Admin: 09/01/19 09:21 Dose: 2.5 mg Documented by: Glucagon () 1 mg IM .X1 PRN PRN Reason: Hypoglycemia Insulin Human Lispro (Humalog Kwikpen (Bkc)) 16 unit SC 0800,1200,1700 [facility] Last Admin: 09/01/19 11:44 Dose: Not Given Documented by: Insulin Human Lispro (Humalog Kwikpen (Bkc)) 0 unit SC TIDAC [facility]; Protocol Last Admin: 09/01/19 11:43 Dose: Not Given Documented by: Multi-Ingredient Cream (Eucerin) 1 applic TOPICAL BID PRN [facility]; Protocol Nitroglycerin (Nitrostat) 0.4 mg SUBLINGUAL Q5M PRN PRN Reason: CHEST PAIN. Nutritional Formula (Tomás - Alden Flavor) 1 packet PO BID [facility] Last Admin: 09/01/19 09:20 Dose: 1 packet Documented by: Sacubitril/Valsartan (Entresto 24 Mg-26 Mg Tablet) 1 each PO BID [facility] Last Admin: 09/01/19 09:24 Dose: Not Given Documented by: Sodium Chloride () 10 - 40 ml IV UD PRN PRN Reason: SALINE FLUSH Last Admin: 09/01/19 09:20 Dose: 10 ml Documented by: Tamsulosin HCl (Flomax) 0.4 mg PO QHS [facility] Last Admin: 08/31/19 21:46 Dose: 0.4 mg Documented by: Warfarin Sodium (Coumadin (Pbkc)) 4 mg PO DAILY@1700 [facility]; Protocol Assessment/Plan This patient was seen in conjunction with SWATCH CLERKJudy. I have independently interviewed and examined the patient and reviewed pertinent history, examination findings, laboratory and plan of management. I have reviewed the note and agree with the documented findings with the few additional points. In brief, patient is 58-year-old gentleman with history of ischemic cardiomyopathy, EF 15% status post AICD is admitted with progressive worsening of shortness of breath for 2 to 3 weeks to the point that his dyspnea at rest, orthopnea and PND. Chest x-ray independently reviewed shows dilated pulmonary vessels and hilar congestion. Patient is admitted in PCU on Lasix 40 mg IV twice daily. On CHF core measures. Patient has PVCs and 4 beats of NSVT on telemetry. Echocardiogram on August 10, 2019 reported as EF 10 to 15%, severe global hypokinesis, severely enlarged left and right atria, dilated right ventricle, severely dilated left ventricle, RVSP 59 mmHg with moderate pulmonary hypertension and dilated IVC. Patient Coreg 3.125 and Entresto 24/, resumed with holding parameter. During previous admission with septic shock, cellulitis and ileus these medications were discontinued. On 09/01/2019: Respiratory status is better. Advised PT and OT. On CHF daily Coumadin. INR 2.3. Blood sugar is controlled. Rest comorbidities as mentioned above including chronic A. fib on AICD, type 2 diabetes mellitus, CKD stage III, BPH, GERD, strictly sleep apnea on CPAP: Home medication reconciliation done. Glucose are well controlled. I have discussed my assessment with SWATCH CLERKJudy and orders have been reviewed. Inpatient E&M: 85326 Subs Hosp L2
--- NOTE | 2019-09-01 15:21 | CASEMGMT ---
This RN CM received call from Monika Marin, pt's CM thru his insurance, and she states that they have pt set up with aide, meals and life alert. This RN CM asked Monika if she would be able to help pt with transportation also and she states she will work on that. Monika would like to be notified when pt ready for discharge. Monika's contact info: [phone]. This RN JUAN then received call from George at [facility] and she states that they have been active with pt for about 6 years. George states that pt is extremely non-compliant and that they have tried all sorts of ways to get pt to be compliant. Pt has been set up with [employer] to deliver meds, an electronic medminder box and even provided with a new scale to track daily weights. George states that pt will take the pills out of the medminder box because it is alarming but then he will not take them and just leave them on the counter. She states that pt does not track weights. George states that they will set up transportation for pt's appts and then pt will cancel transport and appt. CM to f/u with pt in regards to same. Yudelka VOSS CM Original Note: Readmission chart review: Pt initially admitted 08/09-08/16/2019 for severe sepsis/pna but then pt also developed an ileus while here. Pt with EF 10-15% on ECHO. Pt discharged with [facility] for SN, PT. Resumption of care order placed at this time. Pt readmitted 08/30/2019 for CHF and had only been on 20mg Lasix at home d/t other concerns while here during last admit. The plan was for the Lasix dose to be increased by PCP once home. CM to follow for any further discharge planning/needs. Pt does state transportation concerns but pt is reminded that he can set up his transportation thru his [facility], voices understanding. Yudelka VOSS CM
[2019-09-01 16:41] LABS: Bedside Glucose 133 mg/dL (70-110)
[2019-09-01] MEDS: Insulin Lispro 100 UNIT/ML INSULN.PEN 16 UNIT SC (17:01)
[2019-09-01] MEDS: Acetaminophen 325 MG Tablet 650 MG PO (21:07)
[2019-09-01] MEDS: Tamsulosin HCl 0.4 MG Capsule PO (21:07)
[2019-09-01] MEDS: Carvedilol 3.125 MG TABLET PO (21:07)
[2019-09-01] MEDS: SACUBITRIL/VALSARTAN 24/26 MG TABLET 1 EACH PO (21:07)
[2019-09-01 22:25] LABS: Bedside Glucose 75 mg/dL (70-110)
[2019-09-01] MEDS: Temazepam 15 MG Capsule PO (23:08)
[2019-09-02] VITALS (11 sets, daily range): BP systolic 100–121; BP diastolic 63–79; PULSE 76–85; RESP 14–18; TEMP 36.4–37; O2SAT 94–98
[2019-09-02] MEDS: Aspirin 81 MG TAB.CHEW PO (08:26)
[2019-09-02] MEDS: Carvedilol 3.125 MG TABLET PO (08:27)
[2019-09-02] MEDS: Ferrous Sulfate 325 MG Tablet PO ×2 (08:27→15:54)
[2019-09-02] MEDS: Furosemide 40 MG/4 ML Vial IV ×3 (08:29→21:16)
[2019-09-02] MEDS: SACUBITRIL/VALSARTAN 24/26 MG TABLET 1 EACH PO (08:30)
[2019-09-02] MEDS: Famotidine 20 MG Tablet 40 MG PO (08:30)
[2019-09-02 08:51] LABS: Bedside Glucose 64 mg/dL (70-110)
--- NOTE | 2019-09-02 10:43 | PN_ITS ---
<Judy Humphreys - Last Filed: 09/02/19 10:51> Patient Problems: Active and Suspected Problems (Last Reviewed 08/30/19 @ 16:[address] Mark Finch DO) Acute congestive heart failure (Acute) Anasarca (Acute) Subjective: Patient seen and examined. Complains of ongoing genital swelling. Breathing improved. Agreeable to palliative consult. - Physical Exam Vitals/I&O's: Vital Signs Temp Pulse Resp BP Pulse Ox 98.4 F 79 18 121/76 H 94 09/02/19 09:00 09/02/19 09:00 09/02/19 09:00 09/02/19 09:00 09/02/19 09:00 Oxygen Flow Rate (L/min) 2 Oxygen Delivery Method Room Air Weight: 216 lb 7.903 oz Body Mass Index (BMI) 37.2 Finger Stick Blood Glucose 87 Intake and Output for Last 24 Hours 08/31/19 09/01/19 09/02/19 23:59 23:59 23:59 Intake Total 1040 / 1040 1190 / 1190 Balance 1040 / 1040 1190 / 1190 General: Alert, Oriented x3, Cooperative HEENT: Atraumatic, PERRLA, EOMI, Normocephalic Neck: Supple, No JVD, Negative Carotid Bruits Lungs: Clear to auscultation, Diminished Cardiovascular: Regular rate, Regular Rhythm, Normal S1, Normal S2, No murmurs Abdomen: Bowel Sounds Present, Soft, Non Tender, Non-Distended Extremities: No clubbing, No cyanosis, Edema - Lower extremity edema extending to upper thigh and genitalia. Skin: No rashes, No breakdown Musculoskeletal: No Tenderness to Palpation of Joints or Extremities Neurological: Cranial nerves II-XII grossly intact, Neuro grossly intact Psych/Mental Status: Normal Affect, Appropriate Laboratory Results 09/01/19 11:27: POC Glucose 76 09/01/19 16:32: POC Glucose 133 H 09/01/19 21:06: POC Glucose 75 09/02/19 08:23: POC Glucose 64 L Current Medications Acetaminophen (Tylenol) 650 mg PO Q4H PRN PRN PRN Reason: Pain Score 1-03/03 Last Admin: 09/01/19 21:07 Dose: 650 mg Documented by: Aspirin (Aspirin, Baby) 81 mg PO DAILY@0800 [facility] Last Admin: 09/02/19 08:26 Dose: 81 mg Documented by: Capsaicin (Zostrix) 1 applic TOPICAL DAILY PRN PRN; Protocol PRN Reason: NOT SPECIFIED Carvedilol (Coreg) 3.125 mg PO BID [facility] Last Admin: 09/02/19 08:27 Dose: 3.125 mg Documented by: Dextrose (D50w Syringe) 0 gm IV X1 PRN; Protocol PRN Reason: Hypoglycemia Famotidine (Pepcid) 40 mg PO DAILY [facility] Last Admin: 09/02/19 08:30 Dose: 40 mg Documented by: [facility]ous Sulf[facility] ([facility] S[facility]ate) [facility] Last Admin: 09/02/19 08:27 Dose: 325 mg Documented by: Furosemide (Lasix) 40 mg IV BID@1000,1800 [facility] Last Admin: 09/02/19 08:29 Dose: 40 mg Documented by: Glipizide (Glipizide Er) [facility] Last Admin: 09/02/19 08:31 Dose: 2.5 mg Documented by: Glucagon () 1 mg IM .X1 PRN PRN Reason: Hypoglycemia Insulin Human Lispro (Humalog Kwikpen (Bkc)) 16 unit SC 0800,1200,1700 [facility] Last Admin: 09/02/19 08:27 Dose: Not Given Documented by: Insulin Human Lispro (Humalog Kwikpen (Bkc)) 0 unit SC TIDAC [facility]; Protocol Last Admin: 09/02/19 08:26 Dose: Not Given Documented by: Multi-Ingredient Cream (Eucerin) 1 applic TOPICAL BID PRN [facility]; Protocol Nitroglycerin (Nitrostat) 0.4 mg SUBLINGUAL Q5M PRN PRN Reason: CHEST PAIN. Nutritional Formula (Tomás - Dukes Flavor) 1 packet PO BID [facility] Last Admin: 09/02/19 08:29 Dose: 1 packet Documented by: Sacubitril/Valsartan (Entresto 24 Mg-26 Mg Tablet) 1 each PO BID [facility] Last Admin: 09/02/19 08:30 Dose: 1 each Documented by: Sodium Chloride () 10 - 40 ml IV UD PRN PRN Reason: SALINE FLUSH Last Admin: 09/01/19 17:01 Dose: 10 ml Documented by: Tamsulosin HCl (Flomax) 0.4 mg PO QHS [facility] Last Admin: 09/01/19 21:07 Dose: 0.4 mg Documented by: Temazepam (Restoril) 15 mg PO QHS PRN PRN Reason: INSOMNIA Last Admin: 09/01/19 23:08 Dose: 15 mg Documented by: Warfarin Sodium (Coumadin (Pbkc)) 4 mg PO DAILY@1700 [facility]; Protocol Last Admin: 09/01/19 17:57 Dose: 4 mg Documented by: Medical Necessity - Tobacco Use Smoking Status: Former smoker Tobacco Use: Non-smoker Assessment/Plan All Active Problems (Last Reviewed 08/30/19 @ 16:[address] Mark Finch, DO) Acute congestive heart failure (Acute) Anasarca (Acute) Acute on chronic systolic (congestive) heart failure (Acute) History of coronary artery stent placement (Resolved 05/29/09) Altered mental status (Resolved) Pleural effusion, left (Resolved) Pneumonia (Resolved) 1. Acute on chronic systolic CHF/ischemic cardiomyopathy, complicated by pulmonary hypertension-status post ICD. BNP 793. Chest x-ray admission consistent with vascular congestion. Echocardiogram 08/11/2019 demonstrated EF 10 to 15%, mild mitral valve insufficiency, moderate tricuspid valve insufficiency, RVSP estimated to be 59 mmHg, moderate pulmonary hypertension. Patient follows with Dr. Willingham. Continue IV Lasix. Strict I&O. Daily weight. On Entresto, carvedilol. Discussed with patient palliative care, agreeable to consult. 2. Recent septic shock related to pneumonia and cellulitis-discharged 08/16/2019. Appears resolved. 3. Chronic atrial fibrillation status post ablation-on Coumadin, trend INR. 4. Chronic kidney disease stage III-stable. 5. Normocytic anemia, iron deficiency anemia-continue iron supplementation. Trend CBC. 6. Hypertension-stable, continue carvedilol, Entresto regimen. 7. Type 2 diabetes afwimhpy-Cdkf-Vcvlm ACHS with sliding scale insulin. 8. PAD status post bypass surgery-Continue aspirin, coumadin. Follow-up with Dr. Bennett as scheduled. 9. CAD status post stents-continue aspirin, beta-ronn. 10. BPH-continue Flomax regimen. 11. JUAN DIEGO-continue home CPAP regimen. DVT prophylaxis- Coumadin Discharge planning: Home with home health when stable. Palliative consult. This patient was seen by Judy Petr, EXAM PROCTOR-C under the supervision of Dr. Romero. <Carrington Romero - Last Filed: 09/02/19 12:32> Subjective: Seen and examined. Patient respiratory status is better with less shortness of breath but is more concerned of the scrotal swelling. Patient has large scrotal swelling with the penis buried. - Physical Exam Vitals/I&O's: Vital Signs Temp Pulse Resp BP Pulse Ox 98.4 F 79 18 121/76 H 94 09/02/19 09:00 09/02/19 09:00 09/02/19 09:00 09/02/19 09:00 09/02/19 09:00 Oxygen Flow Rate (L/min) 2 Oxygen Delivery Method Room Air Weight: 216 lb 7.903 oz Body Mass Index (BMI) 37.2 Finger Stick Blood Glucose 87 Intake and Output for Last 24 Hours 08/31/19 09/01/19 09/02/19 23:59 23:59 23:59 Intake Total 1040 / 1040 1190 / 1190 120 / 120 Balance 1040 / 1040 1190 / 1190 120 / 120 General: Alert, Oriented x3, Cooperative HEENT: Atraumatic, PERRLA, EOMI, Normocephalic Neck: Supple, No JVD, Negative Carotid Bruits Lungs: Clear to auscultation, No rhonchi, No wheeze, No rales, Diminished - Air entry diminished in bilateral lung bases Cardiovascular: Regular rate, Regular Rhythm, Normal S1, Normal S2, No murmurs Abdomen: Bowel Sounds Present, Soft, Non Tender, Non-Distended, - - Large scrotal swelling with mainly subcutaneous edema with peau d'orange appearance. Penis is buried in the scrotum. Urinary incontinence. Extremities: Capillary Refill Less than 3 Seconds, Edema Skin: No rashes, No breakdown Musculoskeletal: No Tenderness to Palpation of Joints or Extremities, Arthritic Changes Neurological: Cranial nerves II-XII grossly intact, Deep Tendon Reflexes 2+/4 and Symmetrical, Neuro grossly intact Psych/Mental Status: Normal Affect, Appropriate Laboratory Results 09/01/19 16:32: POC Glucose 133 H 09/01/19 21:06: POC Glucose 75 09/02/19 08:23: POC Glucose 64 L 09/02/19 11:25: POC Glucose 113 H Current Medications Acetaminophen (Tylenol) 650 mg PO Q4H PRN PRN PRN Reason: Pain Score 1-03/03 Last Admin: 09/01/19 21:07 Dose: 650 mg Documented by: Aspirin (Aspirin, Baby) 81 mg PO DAILY@0800 [facility] Last Admin: 09/02/19 08:26 Dose: 81 mg Documented by: Capsaicin (Zostrix) 1 applic TOPICAL DAILY PRN PRN; Protocol PRN Reason: NOT SPECIFIED Carvedilol (Coreg) 3.125 mg PO BID [facility] Last Admin: 09/02/19 08:27 Dose: 3.125 mg Documented by: Dextrose (D50w Syringe) 0 gm IV X1 PRN; Protocol PRN Reason: Hypoglycemia Famotidine (Pepcid) 40 mg PO DAILY [facility] Last Admin: 09/02/19 08:30 Dose: 40 mg Documented by: Ferrous Sulfate (Ferrous Sulfate) [facility] Last Admin: 09/02/19 08:27 Dose: 325 mg Documented by: Furosemide (Lasix) 40 mg IV Q8 [facility] Glipizide (Glipizide Er) 2.[facility] Last Admin: 09/02/19 12:10 Dose: 2.5 mg Documented by: Glucagon () 1 mg IM .X1 PRN PRN Reason: Hypoglycemia Insulin Human Lispro (Humalog Kwikpen (Bkc)) 16 unit SC 0800,1200,1700 [facility] Last Admin: 09/02/19 11:49 Dose: Not Given Documented by: Insulin Human Lispro (Humalog Kwikpen (Bkc)) 0 unit SC TIDAC [facility]; Protocol Last Admin: 09/02/19 11:43 Dose: Not Given Documented by: Multi-Ingredient Cream (Eucerin) 1 applic TOPICAL BID PRN [facility]; Protocol Nitroglycerin (Nitrostat) 0.4 mg SUBLINGUAL Q5M PRN PRN Reason: CHEST PAIN. Nutritional Formula (Tomás - Dukes Flavor) 1 packet PO BID [facility] Last Admin: 09/02/19 08:29 Dose: 1 packet Documented by: Sacubitril/Valsartan (Entresto 24 Mg-26 Mg Tablet) 1 each PO BID [facility] Last Admin: 09/02/19 08:30 Dose: 1 each Documented by: Sodium Chloride () 10 - 40 ml IV UD PRN PRN Reason: SALINE FLUSH Last Admin: 09/01/19 17:01 Dose: 10 ml Documented by: Tamsulosin HCl (Flomax) 0.4 mg PO QHS [facility] Last Admin: 09/01/19 21:07 Dose: 0.4 mg Documented by: Temazepam (Restoril) 15 mg PO QHS PRN PRN Reason: INSOMNIA Last Admin: 09/01/19 23:08 Dose: 15 mg Documented by: Warfarin Sodium (Coumadin (Pbkc)) 4 mg PO DAILY@1700 [facility]; Protocol Last Admin: 09/01/19 17:57 Dose: 4 mg Documented by: Assessment/Plan This patient was seen in conjunction with EXAM PROCTOR, Judy. I have independently interviewed and examined the patient and reviewed pertinent history, examination findings, laboratory and plan of management. I have reviewed the note and agree with the documented findings with the few additional points. In brief, patient is 58-year-old gentleman with history of ischemic cardiomyopathy, end-stage heart failure, class IV, EF 15% status post AICD is admitted with progressive worsening of shortness of breath for 2 to 3 weeks to the point that his dyspnea at rest, orthopnea and PND. Chest x-ray in dependently reviewed shows dilated pulmonary vessels and hilar congestion. Patient is admitted in PCU on Lasix 40 mg IV twice daily. On CHF core measures. Patient has PVCs and 4 beats of NSVT on telemetry. Echocardiogram on August 10, 2019 reported as EF 10 to 15%, severe global hypokinesis, severely enlarged left and right atria, dilated right ventricle, severely dilated left ventricle, RVSP 59 mmHg with moderate pulmonary hypertension and dilated IVC. Patient Coreg 3.125 and Entresto 24/, resumed with holding parameter. Patient has usually low blood pressure due to EF 15% which comes in the way of diuresis and Entresto. During previous admission with septic shock, cellulitis and ileus these medications were discontinued. On 09/02/2019: Respiratory status is better. Significant scrotal swelling with subcutaneous edema. Tight brief/scrotal support and genital hygiene patient is urinary incontinence. Advised PT and OT. On daily Coumadin. INR 2.3. Blood sugar is controlled. Palliative care consult. Rest comorbidities as mentioned above including chronic A. fib on AICD, type 2 diabetes mellitus, CKD stage III, BPH, GERD, strictly sleep apnea on CPAP: Home medication reconciliation done. Glucose are well controlled. Inpatient E&M: 08021 Subs Hosp L3
--- NOTE | 2019-09-02 11:48 | CASEMGMT ---
Social Work KAMERON Kim requesting referral be made to palliative care. Judy states she spoke with pt and he is agreeable to consultation with palliative. Phone call to Diandra at [facility] and referral made. At this time Palliative is not seeing pt in the hospital but will call pt and set up an appointment once he gets home. Referral faxed. Per KAMERON Kim pt likely to be d/c tomorrow. Phone call to pt Walker Singh and updated on pt planned discharge tomorrow. Monika states she will restart services. LUKAS Bravo
[2019-09-02 12:21] LABS: Bedside Glucose 113 mg/dL (70-110)
--- NOTE | 2019-09-02 14:30 | CHAPLAIN ---
Type of Pastoral Visit _x__ Initial Visit ___ Follow-up Visit ___ On-call Visit ___ General Patient Visit ___ Spiritual Assessment ___ Family Conference ___ Bereavement ___ Rapid Response ___ Code Blue ___ Other (describe below) Pastoral Care Referral From _x__ Patient ___ Family ___ Nurse ___ Physician ___ Precast Molder ___ Supersonic Engineer ___ Other (describe below) Sacrament/Intervention ___ Active listening ___ Anointing ___ Gnosticism ___ Bereavement ___ Communion ___ Isabella exploration ___ ___ Life review _x__ Prayer ___ Reconciliation ___ Sacrament of Sick _x__ Supportive presence ___ Wedding ___ Other (describe below) Pastoral Comments patient was resting but said that he would be glad to receive prayer; pt said he has no other needs at this time:
[2019-09-02 16:41] LABS: Bedside Glucose 102 mg/dL (70-110)
[2019-09-02] MEDS: 0.9% Saline Lock 10 ML Syringe IV (21:16)
[2019-09-02] MEDS: Tamsulosin HCl 0.4 MG Capsule PO (21:16)
[2019-09-02 22:56] LABS: Bedside Glucose 137 mg/dL (70-110)
[2019-09-03] VITALS (8 sets, daily range): BP systolic 102–105; BP diastolic 67–71; PULSE 74–81; RESP 12–18; TEMP 36.5–36.9; O2SAT 98–100
[2019-09-03] MEDS: 0.9% Saline Lock 10 ML Syringe IV (05:36)
[2019-09-03] MEDS: Furosemide 40 MG/4 ML Vial IV (05:36)
[2019-09-03 07:46] LABS: International Normalized Ratio 2.1; Prothrombin Time (Protime)PT. 23.1 SECONDS (11.7-14.9)
[2019-09-03 08:01] LABS: Anion Gap 6 (5-15); BUN 38 mg/dL (7-18); BUN/Creat Ratio 38.8 RATIO (10-20); Calcium,Total 8.2 mg/dL (8.5-10.1); Chloride 105 mmol/L (98-107); Creatinine, Serum 0.98 mg/dL (0.70-1.30); EST Glomerular Filtration Rate 84 mL/min (>60); Est Glom Filt Rate - Afr Amer 102 mL/min (>60); Estimated Creatinine Clearance 70.48 ml/min; Glucose 79 mg/dL (74-106); Potassium 3.3 mmol/L (3.5-5.1); Sodium Level 141 mmol/L (136-145)
[2019-09-03 09:06] LABS: Bedside Glucose 78 mg/dL (70-110)
[2019-09-03] MEDS: Famotidine 20 MG Tablet 40 MG PO (09:39)
[2019-09-03] MEDS: Carvedilol 3.125 MG TABLET PO (09:39)
[2019-09-03] MEDS: Aspirin 81 MG TAB.CHEW PO (09:39)
[2019-09-03] MEDS: Ferrous Sulfate 325 MG Tablet PO (09:39)
--- NOTE | 2019-09-03 10:38 | PCM.DC ---
- Discharge Diagnoses Current Active Problems: Current Active and Chronic Problems (Last Reviewed 08/30/19 @ 16:[address] Mark Finch, DO) Acute congestive heart failure (Acute) Anasarca (Acute) Diabetes (Chronic) You will use the following diet at home:: Cardiac Discharge Activity: Return to Normal Activity Allergies/Adverse Reactions: Allergies tramadol Allergy (Verified 08/30/19 14:21) Hives Penicillins Adverse Reaction (Verified 08/30/19 14:21) Nausea Medications to take at Discharge Acetaminophen [Tylenol] 650 tab PO Q4H PRN PRN 09/30/18 Argin/Glut/Cahmb/Collag/Mv-Min [Tomás Packet] 1 ea PO BID 09/30/18 Ferrous Sulfate [Ferosul] 325 mg PO BID 09/30/18 Insulin Lispro [Humalog] 16 unit SQ TIDCM 09/30/18 Mineral Oil/Petrolatum,White [Eucerin] 1 applic TOPICAL BID PRN 09/30/18 Tamsulosin HCl [Flomax] 0.4 mg PO QHS 09/30/18 aspirin 81 mg chewable tablet 81 mg PO DAILY@0800 #90 tab 04/13/19 famotidine 40 mg tablet 40 mg PO DAILY #90 tab 06/07/19 glipizide 2.5 mg tablet, extended release 24 hr 2.5 mg PO BID 06/22/19 Capsaicin 60 gm TP DAILY PRN PRN 08/30/19 Nitroglycerin 0.4 mg SL Q5M PRN 08/30/19 Warfarin Sodium [Coumadin] 4 mg PO DAILY 08/30/19 Carvedilol [Coreg (Beta Gerardo)] 3.125 mg PO BID #60 tab 09/03/19 Sacubitril/Valsartan 24/26 mg [Entresto 24 mg-26 mg Tablet] 1 ea PO BID #60 tab 09/03/19 Torsemide [Demadex] 20 mg PO BID #60 tab 09/03/19 The following prescriptions were given: Carvedilol [Coreg (Beta Gerardo)] 3.125 mg PO BID #60 tab Transmission Status: Pending to [facility] [id number] Torsemide [Demadex] 20 mg PO BID #60 tab Transmission Status: Pending to [facility] [id number] Sacubitril/Valsartan 24/26 mg [Entresto 24 mg-26 mg Tablet] 1 ea PO BID #60 tab Transmission Status: Pending to [facility], [place] [place] - [id number] Primary Care Physician: Allen Motta MD [Primary Care Provider] - Please follow up with your Primary Care Physician in: As needed Test Results: Test results from this visit will be discussed in further detail at your follow-up appointment, if applicable. Please Follow Up With: Steffen Sahni DO When: Home with hospice at discharge Proposed Discharge Date: 09/03/19
--- NOTE | 2019-09-03 10:40 | PCM.DC.SUM ---
<Judy Humphreys - Last Filed: 09/03/19 10:46> Discharge Date and Diagnosis Date of Admission: 08/30/19 Date of Discharge: 09/03/19 - Primary Discharge Diagnosis Active and Suspected Problems (Last Reviewed 08/30/19 @ 16:[address] Mark Finch DO) 1. Acute on chronic systolic CHF/ischemic cardiomyopathy, complicated by pulmonary hypertension 2. Recent septic shock related to pneumonia and cellulitis 3. Chronic atrial fibrillation 4. Chronic kidney disease stage III 5. Normocytic anemia, iron deficiency anemia 6. Hypertension 7. Type 2 diabetes mellitus 8. PAD status post bypass surgery 9. CAD status post stents 10. BPH 11. JUAN DIEGO - Secondary Discharge Diagnosis Chronic Problems (Last Reviewed 08/30/19 @ 16:[address] Mark Finch DO) Diabetes (Chronic) Presence of biventricular implantable cardioverter-defibrillator (ICD) (Chronic 07/11/15) Chronic kidney disease, stage 3 (Chronic) Secondary 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 (Chronic) skilled nursing (current) use of anticoagulants (Chronic) Old anterolateral wall myocardial infarction (Chronic) Chronic atrial fibrillation (Chronic) Hyperlipidemia (Chronic) Essential (primary) hypertension (Chronic) Atherosclerosis of [place] coronary artery of [place] heart without angina pectoris (Chronic) PCI-EVAN-Mid LAD w/ 2.5 x 25 mm Promus and PCI-EVAN-D1 w/ 2.5 x 23 mm Promus 05/29/2009 Ischemic cardiomyopathy (Chronic) Hospital Course and Treatment Imaging Results: Diagnostic Data Chest X-Ray 08/30/19 14:37 IMPRESSION: Findings suggestive of a left lower lobe and right middle lobe infiltrate superimposed on mild degree of vascular congestion. Electronically Signed: Mann Prater, at 15:06 EDT , Service support , Operations: None Procedures: None Summary of Care Provided: The patient is a 58 year old M admitted 08/30/2019 due to lower extremity edema. 1. Acute on chronic systolic CHF/ischemic cardiomyopathy, complicated by pulmonary hypertension-status post ICD. BNP 793. Chest x-ray admission consistent with vascular congestion. Echocardiogram 08/11/2019 demonstrated EF 10 to 15%, mild mitral valve insufficiency, moderate tricuspid valve insufficiency, RVSP estimated to be 59 mmHg, moderate pulmonary hypertension. Patient follows with Dr. Willingham. IV Lasix during admission. On Entresto, carvedilol. Transition to torsemide 20 mg twice daily at discharge. Patient agreeable to hospice and would also like to turn off defibrillator. Hospice consult prior to discharge, home with hospice. 2. Recent septic shock related to pneumonia and cellulitis-discharged 08/16/2019. Appears resolved. 3. Chronic atrial fibrillation status post ablation-on Coumadin. 4. Chronic kidney disease stage III-stable. 5. Normocytic anemia, iron deficiency anemia-continue iron supplementation. 6. Hypertension-stable, continue carvedilol, Entresto regimen. 7. Type 2 diabetes mellitus-continue home oral and insulin regimen. 8. PAD status post bypass surgery-Continue aspirin, coumadin. Follows with Dr. Bennett. 9. CAD status post stents-continue aspirin, beta-gerardo. 10. BPH-continue Flomax regimen. 11. JUAN DIEGO-continue home CPAP regimen. General: Alert, Oriented x3, Cooperative HEENT: Atraumatic, PERRLA, EOMI, Normocephalic Neck: Supple, No JVD, Negative Carotid Bruits Lungs: Clear to auscultation, Diminished Cardiovascular: Regular rate, Regular Rhythm, Normal S1, Normal S2, No murmurs Abdomen: Bowel Sounds Present, Soft, Non Tender, Non-Distended Extremities: No clubbing, No cyanosis, Edema - Lower extremity edema extending to upper thigh and genitalia. Skin: No rashes, No breakdown Musculoskeletal: No Tenderness to Palpation of Joints or Extremities Neurological: Cranial nerves II-XII grossly intact, Neuro grossly intact Psych/Mental Status: Normal Affect, Appropriate Patient seen and examined prior to discharge. Physical assessment as noted above. As noted above, home with hospice at discharge. This patient was seen by PRIMITIVO Smith under the supervision of Dr. Romero. - Physical Exam Vitals/I&O's: Vital Signs Temp Pulse Resp BP Pulse Ox 98.0 F 80 18 102/67 100 09/03/19 09:32 09/03/19 09:32 09/03/19 09:32 09/03/19 09:32 09/03/19 09:32 Oxygen Flow Rate (L/min) 2 Oxygen Delivery Method Room Air Weight: 208 lb 8.917 oz Body Mass Index (BMI) 37.2 Finger Stick Blood Glucose 87 Intake and Output for Last 24 Hours 09/01/19 09/02/19 09/03/19 23:59 23:59 23:59 Intake Total 1190 / 1190 600 / 600 0 / 0 Output Total 500 / 500 Balance 1190 / 1190 100 / 100 0 / 0 Laboratory Results 09/02/19 11:25: POC Glucose 113 H 09/02/19 15:57: POC Glucose 102 09/02/19 21:15: POC Glucose 137 H 09/03/19 06:40: PT 23.1 H, INR 2.1 09/03/19 06:40: Sodium 141, Potassium 3.3 L, Chloride 105, Carbon Dioxide 30.0, Anion Gap 6, BUN 38 H, Creatinine 0.98, Estim Creat Clear Calc 70.48, Est GFR (MDRD) Af Amer 102, Est GFR (MDRD) Non-Af 84, BUN/Creatinine Ratio 38.8 H, Glucose 79, Calcium 8.2 L 09/03/19 08:21: POC Glucose 78 Current Medications Acetaminophen (Tylenol) 650 mg PO Q4H PRN PRN PRN Reason: Pain Score 1-10 Last Admin: 09/01/19 21:07 Dose: 650 mg Documented by: Aspirin (Aspirin, Baby) 81 mg PO DAILY@0800 [facility] Last Admin: 09/03/19 09:39 Dose: 81 mg Documented by: Capsaicin (Zostrix) 1 applic TOPICAL DAILY PRN PRN; Protocol PRN Reason: NOT SPECIFIED Carvedilol (Coreg) 3.125 mg PO BID [facility] Last Admin: 09/03/19 09:39 Dose: 3.125 mg Documented by: Dextrose (D50w Syringe) 0 gm IV X1 PRN; Protocol PRN Reason: Hypoglycemia Famotidine (Pepcid) 40 mg PO DAILY [facility] Last Admin: 09/03/19 09:39 Dose: 40 mg Documented by: [facility]ous [facility] ([facility]ous Sulfate) [facility] Last Admin: 09/03/19 09:39 Dose: 325 mg Documented by: Furosemide (Lasix) 40 mg IV Q8 [facility] Last Admin: 09/03/19 05:36 Dose: 40 mg Documented by: Glipizide (Glipizide Er) [facility] Last Admin: 09/03/19 09:39 Dose: 2.5 mg Documented by: Glucagon () 1 mg IM .X1 PRN PRN Reason: Hypoglycemia Insulin Human Lispro (Humalog Kwikpen (Bkc)) 16 unit SC 0800,1200,1700 [facility] Last Admin: 09/03/19 08:22 Dose: Not Given Documented by: Insulin Human Lispro (Humalog Kwikpen (Bkc)) 0 unit SC TIDAC [facility]; Protocol Last Admin: 09/03/19 08:22 Dose: Not Given Documented by: Multi-Ingredient Cream (Eucerin) 1 applic TOPICAL BID PRN [facility]; Protocol Nitroglycerin (Nitrostat) 0.4 mg SUBLINGUAL Q5M PRN PRN Reason: CHEST PAIN. Nutritional Formula (Tomás - Roseau Flavor) 1 packet PO BID [facility] Last Admin: 09/03/19 09:39 Dose: 1 packet Documented by: Sacubitril/Valsartan (Entresto 24 Mg-26 Mg Tablet) 1 each PO BID [facility] Last Admin: 09/03/19 09:37 Dose: Not Given Documented by: Sodium Chloride () 10 - 40 ml IV UD PRN PRN Reason: SALINE FLUSH Last Admin: 09/03/19 05:36 Dose: 10 ml Documented by: Tamsulosin HCl (Flomax) 0.4 mg PO QHS [facility] Last Admin: 09/02/19 21:16 Dose: 0.4 mg Documented by: Temazepam (Restoril) 15 mg PO QHS PRN PRN Reason: INSOMNIA Last Admin: 09/01/19 23:08 Dose: 15 mg Documented by: Warfarin Sodium (Coumadin (Pbkc)) 4 mg PO DAILY@1700 [facility]; Protocol Last Admin: 09/02/19 15:54 Dose: 4 mg Documented by: Discharge Diet: 8 Cup Fluid Restriciton, 2000 mg Sodium Diet Discharge Activity: Return to Normal Activity Home Medications: Medications to take at Discharge Acetaminophen [Tylenol] 650 tab PO Q4H PRN PRN 09/30/18 Argin/Glut/Cahmb/Collag/Mv-Min [Tomás Packet] 1 ea PO BID 09/30/18 Ferrous Sulfate [Ferosul] 325 mg PO BID 09/30/18 Insulin Lispro [Humalog] 16 unit SQ TIDCM 09/30/18 Mineral Oil/Petrolatum,White [Eucerin] 1 applic TOPICAL BID PRN 09/30/18 Tamsulosin HCl [Flomax] 0.4 mg PO QHS 09/30/18 aspirin 81 mg chewable tablet 81 mg PO DAILY@0800 #90 tab 04/13/19 famotidine 40 mg tablet 40 mg PO DAILY #90 tab 06/07/19 glipizide 2.5 mg tablet, extended release 24 hr 2.5 mg PO BID 06/22/19 Capsaicin 60 gm TP DAILY PRN PRN 08/30/19 Nitroglycerin 0.4 mg SL Q5M PRN 08/30/19 Warfarin Sodium [Coumadin] 4 mg PO DAILY 08/30/19 Carvedilol [Coreg (Beta Gerardo)] 3.125 mg PO BID #60 tab 09/03/19 Sacubitril/Valsartan 24/26 mg [Entresto 24 mg-26 mg Tablet] 1 ea PO BID #60 tab 09/03/19 Torsemide [Demadex] 20 mg PO BID #60 tab 09/03/19 Following Prescrptions Were Given to Patient: Carvedilol [Coreg (Beta Gerardo)] 3.125 mg PO BID #60 tab Transmission Status: Received by [place] [id number] Torsemide [Demadex] 20 mg PO BID #60 tab Transmission Status: Received by [place] [id number] Sacubitril/Valsartan 24/26 mg [Entresto 24 mg-26 mg Tablet] 1 ea PO BID #60 tab Transmission Status: Received by [facility] [id number] Primary Care Physician: Allen Motta MD [Primary Care Provider] - Please follow up with your Primary Care Physician in: As needed Please Follow Up With: Steffen Sahni DO When: Home with hospice at discharge Disposition: Home with Hospice Minutes spent on discharge:: 35 Patient Condition:: Fair Medical Necessity - Tobacco Use Smoking Status: Former smoker Tobacco Use: Non-smoker Meaningful Use Info Meaningful Use Diagnoses (Choose all that apply): CHF - CHF VINNIE/ARB ordered at discharge?: Yes Documented LVEF (%): 10 <Carrington Romero - Last Filed: 09/03/19 15:38> Discharge Date and Diagnosis - Secondary Discharge Diagnosis Chronic Problems (Last Reviewed 08/30/19 @ 16:[address] Mark Finch DO) Diabetes (Chronic) Presence of biventricular implantable cardioverter-defibrillator (ICD) (Chronic 07/11/15) Chronic kidney disease, stage 3 (Chronic) Secondary 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 (Chronic) skilled nursing (current) use of anticoagulants (Chronic) Old anterolateral wall myocardial infarction (Chronic) Chronic atrial fibrillation (Chronic) Hyperlipidemia (Chronic) Essential (primary) hypertension (Chronic) Atherosclerosis of [place] coronary artery of [place] heart without angina pectoris (Chronic) PCI-EVAN-Mid LAD w/ 2.5 x 25 mm Promus and PCI-EVAN-D1 w/ 2.5 x 23 mm Promus 05/29/2009 Ischemic cardiomyopathy (Chronic) Hospital Course and Treatment Summary of Care Provided: The patient is a 58 year old M [] This patient was seen in conjunction with DIRECTOR OF WEB MARKETING, Judy. I have independently interviewed and examined the patient and reviewed pertinent history, examination findings, laboratory and plan of management. I have reviewed the note and agree with the documented findings with the few additional points. In brief, patient is 58-year-old gentleman with history of ischemic cardiomyopathy, end-stage heart failure, class IV, EF 15% status post AICD is admitted with progressive worsening of shortness of breath for 2 to 3 weeks to the point that his dyspnea at rest, orthopnea and PND. Chest x-ray independently reviewed shows dilated pulmonary vessels and hilar congestion. Patient is admitted in PCU on Lasix 40 mg IV twice daily. On CHF core measures. Patient has PVCs and 4 beats of NSVT on telemetry. Echocardiogram on August 10, 2019 reported as EF 10 to 15%, severe global hypokinesis, severely enlarged left and right atria, dilated right ventricle, severely dilated left ventricle, RVSP 59 mmHg with moderate pulmonary hypertension and dilated IVC. Patient Coreg 3.125 and Entresto 24/26. On 09/03/2019: Respiratory status has improved but he still has significant scrotal swelling with subcutaneous edema. Tight brief/scrotal support and genital hygiene patient is urinary incontinence. Advised PT and OT. On daily Coumadin. INR therapeutic. Blood sugar is controlled. Patient agreed to follow-up with palliative care at home for home with hospice care. Patient agreed for hospice care. Rest comorbidities as mentioned above including chronic A. fib on AICD, type 2 diabetes mellitus, CKD stage III, BPH, GERD, strictly sleep apnea on CPAP: Home medication reconciliation done. Glucose are well controlled. Discharge medication reconciliation done. Discharge follow-up instructions completed. Discharge process discussed with the patient and all questions were answered to patient's satisfaction. Discharged to home Total time spent, exact 35 minutes on discharge meds reconciliation, examination, coordination of care with nurses and ancillary staff, review of imaging and blood test and discussion with the patient on follow-up instructions Subjective: Seen and examined. Patient is on baseline. Shortness of breath is improved. Not significant change in his scrotal edema. Objective: General: Alert, Oriented x3, Cooperative HEENT: Atraumatic, PERRLA, EOMI, Normocephalic Neck: Supple, No JVD, Negative Carotid Bruits Lungs: Clear to auscultation, No rhonchi, No wheeze, No rales, Air entry diminished in bilateral lung bases Cardiovascular: Regular rate, Regular Rhythm, Normal S1, Normal S2, No murmurs Abdomen: Bowel Sounds Present, Soft, Non Tender, Non-Distended, Large scrotal swelling with mainly subcutaneous edema with peau d'orange appearance. Penis is buried in the scrotum. Chronic urinary incontinence. Extremities: Capillary Refill Less than 3 Seconds, bilateral Vinnie wrap bandage. Edema has improved. Skin: No rashes, No breakdown Musculoskeletal: No Tenderness to Palpation of Joints or Extremities, Arthritic Changes Neurological: Cranial nerves II-XII grossly intact, Deep Tendon Reflexes 2+/4 and Symmetrical, Neuro grossly intact Psych/Mental Status: Normal Affect, Appropriate - Physical Exam Vitals/I&O's: Vital Signs Temp Pulse Resp BP Pulse Ox 98.0 F 80 18 102/67 100 09/03/19 09:32 09/03/19 09:32 09/03/19 09:32 09/03/19 09:32 09/03/19 09:32 Oxygen Flow Rate (L/min) 2 Oxygen Delivery Method Room Air Weight: 208 lb 8.917 oz Body Mass Index (BMI) 37.2 Finger Stick Blood Glucose 87 Intake and Output for Last 24 Hours 09/01/19 09/02/19 09/03/19 23:59 23:59 23:59 Intake Total 1190 / 1190 600 / 600 400 / 400 Output Total 500 / 500 Balance 1190 / 1190 100 / 100 400 / 400 Laboratory Results 09/02/19 15:57: POC Glucose 102 04/10/20 21:15: POC Glucose 137 H 09/03/19 06:40: PT 23.1 H, INR 2.1 09/03/19 06:40: Sodium 141, Potassium 3.3 L, Chloride 105, Carbon Dioxide 30.0, Anion Gap 6, BUN 38 H, Creatinine 0.98, Estim Creat Clear Calc 70.48, Est GFR (MDRD) Af Amer 102, Est GFR (MDRD) Non-Af 84, BUN/Creatinine Ratio 38.8 H, Glucose 79, Calcium 8.2 L 09/03/19 08:21: POC Glucose 78 09/03/19 12:27: POC Glucose 120 H Inpatient E&M: [id number] Disch Hosp
[2019-09-03 12:36] LABS: Bedside Glucose 120 mg/dL (70-110)
--- NOTE | 2019-09-03 13:45 | NURSING ---
Spoke with [facility], paperwork faxed over, patient signed and was faxed back to [facility]'s office.
== END 2019-09-03 13:44 | disposition hospice, home (50) | DRG 291 ==
LOC: ED 15:45 → PCU 16:23
PROVIDERS: Family Medicine; Nurse Practitioner Family; Physician Assistant; Emergency Provider Emergency Medicine; PCP Family Medicine; Visit Provider Internal Medicine
DX: I13.0 Hypertensive heart and chronic kidney disease with heart failure and stage 1 through stage 4 chronic kidney disease, or unspecified chronic kidney disease (principal); I50.23 Acute on chronic systolic (congestive) heart failure; I48.20 Chronic atrial fibrillation, unspecified; J44.0 Chronic obstructive pulmonary disease with (acute) lower respiratory infection; I47.2 Ventricular tachycardia; L97.909 Non-pressure chronic ulcer of unspecified part of unspecified lower leg with unspecified severity; I27.21 Secondary pulmonary arterial hypertension; E78.5 Hyperlipidemia, unspecified; G47.33 Obstructive sleep apnea (adult) (pediatric); I25.5 Ischemic cardiomyopathy; N18.3 Chronic kidney disease, stage 3 (moderate); N40.0 Benign prostatic hyperplasia without lower urinary tract symptoms; K21.9 Gastro-esophageal reflux disease without esophagitis; E11.22 Type 2 diabetes mellitus with diabetic chronic kidney disease; N50.89 Other specified disorders of the male genital organs; I73.9 Peripheral vascular disease, unspecified; I49.3 Ventricular premature depolarization; E66.9 Obesity, unspecified; Z51.5 Encounter for palliative care; I25.10 Atherosclerotic heart disease of native coronary artery without angina pectoris; D50.9 Iron deficiency anemia, unspecified; Z95.5 Presence of coronary angioplasty implant and graft; Z95.810 Presence of automatic (implantable) cardiac defibrillator; Z79.01 Long term (current) use of anticoagulants; Z82.49 Family history of ischemic heart disease and other diseases of the circulatory system; Z90.49 Acquired absence of other specified parts of digestive tract; Z80.1 Family history of malignant neoplasm of trachea, bronchus and lung; Z87.891 Personal history of nicotine dependence; Z79.4 Long term (current) use of insulin; Z79.82 Long term (current) use of aspirin; I25.2 Old myocardial infarction; Z68.34 Body mass index [BMI] 34.0-34.9, adult
CPT/HCPCS: 36415; 71045; 80048; 80053; 81001; 82962; 83036; 83735; 83880; 84484; 85025; 85610; 93005; 94003; 94660; 97110; 97162; 97166; 97802; 99251; 99285; A4216; G0463; J1940